=== PATIENT | female | born 1990 | race Caucasian/White ===

== ENCOUNTER 2020-08-16 15:39 | Emergency (ER) | payer MEDICAID, SELFPAY ==
[2020-08-16 16:17] VITALS: BP 110/41; PULSE 81; RESP 16; TEMP 36.2; O2SAT 97; BMI 30.2
--- NOTE | 2020-08-16 17:04 | XR_ITS ---
EXAMINATIONS: WRIST 4 VIEWS, RIGHT AND HAND 3 VIEWS, RIGHT CLINICAL INFORMATION: Pain. COMPARISON: None. TECHNIQUE: AP, lateral, oblique, scaphoid views of the right wrist are provided. PA, lateral, oblique views of the right hand were obtained. FINDINGS: There are no fractures or dislocations. There is mild soft tissue swelling about the dorsum of the hand. There is no displacement of the pronator fat pad. The proximal carpal row is intact. IMPRESSION: No fracture demonstrable. Mild soft tissue swelling to the dorsum of the hand.
--- NOTE | 2020-08-16 17:05 | US_ITS ---
EXAMINATION: US TRIPLEX SCANNING RIGHT UPPER EXTREMITY CLINICAL INFORMATION: Right arm pain and swelling. Question DVT. COMPARISON: None. TECHNIQUE: Color-flow triplex imaging with spectral analysis and compression Doppler were performed on the right upper extremity. FINDINGS: Respiratory variation, normal compression and augmented flow are noted throughout the right upper extremity. The visualized basilic vein, cephalic vein, axillary vein and subclavian vein segments show no evidence of deep venous thrombosis. IMPRESSION: Normal triplex scan without evidence of deep venous thrombosis involving the right upper extremity.
--- NOTE | 2020-08-16 17:07 | ED.EXTPRO ---
HPI - Extremity Problem General Chief complaint: Extremity Injury, Upper Stated complaint: hand pain and swelling Time Seen by Provider: 08/16/20 16:55 Source: patient Mode of arrival: ambulatory Limitations: no limitations History of Present Illness HPI Narrative: 29yoF presenting to the ED c c/o of right hand/wrist/forearm/arm pain swelling x a few days worse today. Denies recent travel, denies history of hypercoagulation disorder, history of cancer, IV drug use oral contraceptive Related Data Allergies Allergy/AdvReac Type Severity Reaction Status Date / Time clindamycin [CLINDAMYCIN] Allergy Unknown ANAPHYLAXIS Unverified 07/15/20 19:20 Review of Systems Review of Systems: Constitutional : No Weight loss, No Fever, No Chills, No Night Sweats, No Fatigue, No Malaise Cardiovascular : No Chest Pain, No SOB, No Dyspnea on Exertion, No Orthopnea, No Edema, No Palpitations Respiratory : No Cough, No Sputum, No Wheezing, No Smoke Exposure, No Dyspnea Musculoskeletal :No Myalgias Skin : No Skin Lesions, No rash Neuro : No Weakness, No Numbness, No Paresthesias, No Loss of Consciousness, No Dizziness, No Headache Psych : No Anxiety/Panic, No Depression, No SI/HI/AH/VH, No Social Issues, Heme/Lymph: No Bruising, No Bleeding,No Lymphadenopathy Yes all other systems are reviewed and are negative [facility] Past Medical History Attestation statement: The following information was validated with the patient. Surgical History Hx of cholecystectomy Social History Social History Smoking Status: Never smoker Use of substances other than those prescribed or required for medical reasons: No Advance Directives: No Advance Directives Information Provided: Yes Physical Exam Vital Signs: Vital Signs: Vital Signs Temp Pulse Resp BP Pulse Ox 08/16/20 16:17 97.1 F 81 16 110/41 L 97 Body Mass Index 30.2 vital signs have been reviewed as normal and appeared to be correct. Blood pressure normal. Heart rate normal. Respiration rate normal. Temperature normal. Oxygen saturation normal. Appearance: Alert. Oriented X3. No acute distress. Neck: Normal inspection. Neck supple. FROM. CVS: Normal heart rate and rhythm. Heart sound normal. Pulses normal throughout. Respiratory: No respiratory distress. Painless inspiration. Back:Full range of motion noted. Skin: Skin warm and dry. Normal skin color. Normal skin turgor. No rashes/lesions/lacerations noted. Extremities: To r wrist/forearm there is mild sts and pt ttp. Pt has FROM. no obvious deformity. No erythema/fluctuance/ induration / streaking noted. No edema noted to all extremities. All other Extremities exhibit normal range of motion and nontender. Neuro: Oriented X 3. No motor deficit. No sensory deficit. Reflexes normal. Course Course Course Narrative: 29yoF presenting to the ED c c/o of right hand/wrist/forearm/arm pain swelling x a few days worse today. - Plan: Xray of right wrist/hand and US to Evaluate for possible DVT versus fracture or any other acute processes and re-evaluate. Reevaluation(s) Reevaluation #1: X-ray of right hand /wrist reveals mild soft tissue swelling to dorsum of hand otherwise no other acute processes. Awaiting ultrasound of hand/arm at this time. Will sign out to oncoming IVONE at this time. MDM - Extremity (Nontraumatic) Imaging Data right hand/wrist xray: Attestation: I personally reviewed and interpreted this imaging study as follows: Radiologist's impression: FINDINGS: There are no fractures or dislocations. There is mild soft tissue swelling about the dorsum of the hand. There is no displacement of the pronator fat pad. The proximal carpal row is intact. IMPRESSION: No fracture demonstrable. Mild soft tissue swelling to the dorsum of the hand.
[2020-08-16 18:34] VITALS: BP 115/68; PULSE 83; RESP 16; TEMP 36.6; O2SAT 100
[2020-08-16] MEDS: Ibuprofen 600 MG TABLET PO (19:56)
== END 2020-08-16 20:00 | disposition home or self-care (01) ==
PROVIDERS: Emergency Provider Emergency Medicine; PCP Internal Medicine
DX: M79.641 Pain in right hand (principal); M79.89 Other specified soft tissue disorders
CPT/HCPCS: 73110; 73130; 93971; 99284

== ENCOUNTER 2021-01-18 15:35 | Outpatient (REF) | payer MEDICAID, SELFPAY | END 2021-01-18 15:36 | disposition home or self-care (01) | LOC: HO.LAB 15:35 | PROVIDERS: Visit Provider Internal Medicine | DX: Z20.822 Contact with and (suspected) exposure to COVID-19 (principal) | CPT/HCPCS: 36415; C9803; U0003; U0005 ==

== ENCOUNTER 2021-02-02 15:44 | Outpatient (REF) | payer MEDICAID, SELFPAY ==
--- NOTE | ~2021-02-02 | US_ITS ---
EXAMINATION:US pelvic complete, US transvaginal CLINICAL INFORMATION: Reason for Exam IRREGULAR MENSES COMPARISON: No priors available. LMP: 12/10/2020 FINDINGS: UTERUS: The uterus is anteverted. Size: 8.4 x 4.8 x 5.9 cm. Uterine mass: There is no uterine mass. Cervix: There are nabothian cysts otherwise Grossly unremarkable. Endometrium: No ultrasound evidence of endometrial lesion. endometrial is hypertrophic thickened measures 1.7 cm ADNEXA: Normal Right ovary: Normal in size. Left ovary: Normal in size. Doppler exam: Normal Doppler flow identified in both ovaries. FREE FLUID: Trace amount of free fluid. OTHER FINDINGS: None US/US transvaginal IMPRESSION: No ultrasound evidence of uterine mass or suspicious lesion to explain patient's symptoms. Thickened hypertrophic endometrium 1.7 cm. In this patient age group this is likely physiologic.
--- NOTE | ~2021-02-02 | US_ITS ---
EXAMINATION:US pelvic complete, US transvaginal CLINICAL INFORMATION: Reason for Exam IRREGULAR MENSES COMPARISON: No priors available. LMP: 12/10/2020 FINDINGS: UTERUS: The uterus is anteverted. Size: 8.4 x 4.8 x 5.9 cm. Uterine mass: There is no uterine mass. Cervix: There are nabothian cysts otherwise Grossly unremarkable. Endometrium: No ultrasound evidence of endometrial lesion. endometrial is hypertrophic thickened measures 1.7 cm ADNEXA: Normal Right ovary: Normal in size. Left ovary: Normal in size. Doppler exam: Normal Doppler flow identified in both ovaries. FREE FLUID: Trace amount of free fluid. OTHER FINDINGS: None US/US pelvic complete IMPRESSION: No ultrasound evidence of uterine mass or suspicious lesion to explain patient's symptoms. Thickened hypertrophic endometrium 1.7 cm. In this patient age group this is likely physiologic.
== END 2021-02-02 15:45 | disposition home or self-care (01) ==
LOC: HO.US 15:44
PROVIDERS: Visit Provider Internal Medicine
DX: N92.6 Irregular menstruation, unspecified (principal)
CPT/HCPCS: 76830; 76856

== ENCOUNTER 2021-03-07 17:17 | Emergency (ER) | payer MEDICAID, SELFPAY ==
[2021-03-07 17:25] VITALS: BP 107/36; PULSE 71; RESP 18; TEMP 36.8; O2SAT 98; BMI 33.5
--- NOTE | 2021-03-07 18:30 | ED.EAR ---
HPI - Ear Problem General Chief complaint: Ear Problems Stated complaint: ear pain Time Seen by Provider: 03/07/21 18:05 Source: patient Mode of arrival: ambulatory History of Present Illness HPI Narrative: 30-year-old female with no significant past medical history presenting to the ED complaining of left ear pain x today, and right ear pain since ED arrival. Reports associated nasal congestion. Denies hearing loss, drainage from ear, sore throat, headache, fever, chills MD Complaint: ear pain Related Data Previous Rx's Medication Instructions Recorded naproxen 500 mg PO BID PRN #20 tab 08/16/20 Allergies Allergy/AdvReac Type Severity Reaction Status Date / Time clindamycin [CLINDAMYCIN] Allergy Unknown ANAPHYLAXIS Verified 03/07/21 17:25 Review of Systems Review of Systems: Constitutional: No Fever, No Chills ENT/Mouth: + Ear Pain, + Nasal Congestion, No Sinus Pain, No sore throat, No Rhinorrhea Cardiovascular: No Chest Pain, No SOB Respiratory: No Cough Gastrointestinal: No Nausea, No Vomiting, No Abdominal pain Musculoskeletal: No joint pain, No Myalgias Skin: No Skin Lesions, No rash Yes all other systems are reviewed and are negative [facility] Past Medical History Attestation statement: The following information was validated with the patient. Surgical History Hx of cholecystectomy Social History Social History Smoking Status: Never smoker Advance Directives: No Advance Directives Information Provided: Yes Physical Exam Vital Signs: Vital Signs: Last Vital Signs Temp 98.2 F 03/07/21 17:25 Pulse 71 03/07/21 17:25 Resp 18 03/07/21 17:25 BP 107/36 L 03/07/21 17:25 Pulse Ox 98 03/07/21 17:25 Body Mass Index 33.5 Const: General: cooperative, healthy appearing and comfortable Orientation/consciousness: patient oriented x3 Limitations: no limitations HENMT: Head: Yes normal to inspection Ears: hearing grossly normal bilaterally, external ears normal, TM's normal bilaterally, TM normal on the right, TM normal on the left and mastoids normal General nose exam: Normal external nose present and Normal nares present Face and sinus: Yes normal facial exam Mouth: Normal oral and palatal mucosa present Throat: Yes posterior oropharynx normal, Yes tonsils normal, Yes uvula midline, No peritonsillar mass and No posterior oropharynx abnormal Eyes: General: appearance normal, both eyes and all related structures EOM: EOMs intact bilaterally Neck: Neck: Yes normal visual inspection, Yes no lymphadenopathy and Yes trachea midline Resp: Effort & Inspection: normal respiratory effort Cardio: Rate: regular rate GI: Inspection: Yes normal to inspection Skin: Rashes: no rashes Wounds: no wounds Neuro: General: patient oriented x3 Gait exam (Neuro): Normal gait present Extrem: General: Yes normal to inspection MDM - Ear MDM Narrative Medical decision making narrative: On exam VSS, NAD/well-appearing, TMs normal bilaterally, mastoid wnl. No evidence of active otitis media or externa Discharge Plan Discharge Clinical Impression: Acute ear pain Qualifiers: Laterality: left Qualified Code(s): H92.02 - Otalgia, left ear Patient Disposition: Home, Self-Care Instructions: Earache (ED) Additional Instructions: Your earache does not look infected at this time, it is likely viral etiology, this does not require antibiotics Take Tylenol and Motrin around the clock If her symptoms persist or worsen in the next 2-3 days be re-evaluated Prescriptions: No Action naproxen 500 mg tablet 500 mg PO BID PRN (Reason: pain) Qty: 20 RF: 0 Referrals: Kath Venegas MD [Primary Care Provider] - 2 days Interventions: ED Discharge Assessment Last Done: 03/07/21 18:39 Discharge Date/Time: 03/07/21 18:40
== END 2021-03-07 18:40 | disposition home or self-care (01) ==
PROVIDERS: Emergency Provider Internal Medicine; PCP Internal Medicine
DX: H92.02 Otalgia, left ear (principal); Z79.899 Other long term (current) drug therapy
CPT/HCPCS: 99284

== ENCOUNTER 2021-04-08 15:54 | Emergency (ER) | payer MEDICAID, SELFPAY ==
[2021-04-08 16:40] VITALS: BP 111/60; PULSE 77; RESP 16; TEMP 36.7; O2SAT 99; BMI 33.0
[2021-04-08] MEDS: Lidocaine HCl 2 % MPF 5 ML VIAL SUBCUT (17:15)
--- NOTE | 2021-04-08 17:16 | PC.NURSE ---
PAT PHAM PERFORMED BEDSIDE US AND I&D
--- NOTE | 2021-04-08 17:34 | ED_ITS ---
HPI - Skin/Abscess/Foreign Bdy General Chief complaint: Skin/Abscess/Foreign Body Stated complaint: abscess Time Seen by Provider: 04/08/21 17:00 History of Present Illness HPI narrative: 30-year-old healthy female who presents to the ED with concern for rash and infection under her right breast. Patient states over the last 2 days she has noticed increased pain and swelling to this area. Has never had anything like this happen in the past. Denies fevers or chills. Denies other chest pain or shortness of breath. States she was trying Tylenol home with minimal relief. Related Data Previous Rx's Medication Instructions Recorded naproxen 500 mg PO BID PRN #20 tab 08/16/20 cephalexin 500 mg PO QID #40 cap 04/08/21 Allergies Allergy/AdvReac Type Severity Reaction Status Date / Time clindamycin [CLINDAMYCIN] Allergy Unknown ANAPHYLAXIS Verified 03/07/21 17:25 Review of Systems Review of Systems: Constitutional : No Weight loss, No Fever, No Chills, No Night Sweats, No Fatigue, No Malaise ENT/Mouth : No Hearing loss, No Ear Pain, No Nasal Congestion, No Sinus Pain, No Hoarseness, No sore throat, No Rhinorrhea, No Swallowing Difficulty Eyes: No Eye Pain, No Swelling, No Redness, No Foreign Body, No Discharge, No Vision Changes Cardiovascular : No Chest Pain, No SOB, No Dyspnea on Exertion, No Orthopnea, No Edema, No Palpitations Respiratory : No Cough, No Sputum, No Wheezing, No Smoke Exposure, No Dyspnea Gastrointestinal : No Nausea, No Vomiting, No Diarrhea, No Constipation, No abdominal Pain, No Hematochezia, No Melena Genitourinary : no irregular bleeding, No Dysuria, No Urinary Frequency, No Hematuria, No Urinary Incontinence, No Urgency, No Flank Pain, No Urinary Flow Changes, No Hesitancy Musculoskeletal : No joint pain, No Myalgias, No Joint Swelling Skin : No Skin Lesions, + rash, +swelling under right breast Neuro : No Weakness, No Numbness, No Paresthesias, No Loss of Consciousness, No Dizziness, No Headache Psych : No Anxiety/Panic, No Depression, No SI/HI/AH/VH, No Social Issues, Heme/Lymph: No Bruising, No Bleeding,No Lymphadenopathy Endocrine : No Polyuria, No Polydipsia, No Temperature Intolerance PMFSH Past Medical History Attestation statement: The following information was validated with the patient. Source: old records reviewed and nursing notes reviewed Surgical History Hx of cholecystectomy Social History Social History Advance Directives: No Advance Directives Information Provided: Yes Patient : No Physical Exam Vital Signs: Vital Signs: Last Vital Signs Temp 98.0 F 04/08/21 16:40 Pulse 77 04/08/21 16:40 Resp 16 04/08/21 16:40 BP 111/60 04/08/21 16:40 Pulse Ox 99 04/08/21 16:40 Body Mass Index 33.0 vital signs have been reviewed as normal and appeared to be correct. Blood pressure normal. Heart rate normal. Respiration rate normal. Temperature no rmal. Oxygen saturation normal. Appearance: Alert. Oriented X3. No acute distress. Head: Normal external exam. Normocephalic. Atraumatic. No Ordoñez signs noted. No raccoon eyes noted Eyes: Conjunctiva and sclera normal. ENT: EAC normal. Moist mucous membranes. No drooling noted. No muffled voice noted. Neck: Normal inspection. Neck supple. FROM. No meningeal signs. CVS: Pulses normal throughout. Respiratory: No respiratory distress. Painless inspiration. No accessory muscle usage noted Abdomen: No visible injury noted. Back: Full range of motion noted. Skin: Skin warm and dry. Normal skin color. Normal skin turgor. Patient with area of erythema under the right breast with tenderness. Small central portion of this with mild fluctuance which may represent early abscess. Extremities: No lower extremity edema. Extremities exhibit normal range of motion. Neuro: Oriented X 3. No motor deficit. No sensory deficit. Procedures Abscess I/D Site: other (under right breast) Side (if applicable): right Local Anesthetic: lidocaine 1% Amount of anesthesia used (mL): 2 Technique: incised with blade Amount of fluid expressed (mL): 3 Sent for culture/gram staining?: No Irrigation: Yes Packing used?: none MDM - Skin/Abscess/Foreign Bdy MDM Narrative Medical decision making narrative: Patient's vital signs are stable and she is afebrile. Patient presenting to the emergency department with rash/swelling under right breast. On exam patient has what appears to be a cellulitis with small early abscess. Bedside ultrasound performed with small fluid collection. I and D performed with moderate amount of purulent bloody drainage from this region. Will prescribe Keflex to help with acute cellulitis and discharged with close outpatient follow-up. Patient comfortable with this plan. Will continue to monitor pending discharge. Discharge Plan Discharge Clinical Impression: Cellulitis Qualifiers: Site of cellulitis: other site Qualified Code(s): L03.818 - Cellulitis of other sites Abscess of skin or subcutaneous tissue Qualifiers: Site of cutaneous abscess: unspecified site Qualified Code(s): L02.91 - Cutaneous abscess, unspecified Patient Disposition: Home, Self-Care Instructions: Cellulitis (ED), Abscess (ED), Abscess Incision and Drainage (DC) Additional Instructions: You were seen today in the emergency department for an abscess to the right breast. There was a small fluid collection that was drained to help heal infection. You will be started on antibiotics and should continue this for 10 days. Use Motrin and Tylenol for pain control. Keep wound clean and dry. This will drain for a few days before closing. Return to the ED if you develop worsening pain worsening swelling continued purulence drainage from the wound or fever. Prescriptions: New cephalexin 500 mg capsule 500 mg PO QID Qty: 40 RF: 0 No Action naproxen 500 mg tablet 500 mg PO BID PRN (Reason: pain) Qty: 20 RF: 0 Referrals: Kath Venegas MD [Primary Care Provider] - 5 days (if needed) Print Language: Armenian
[2021-04-08] MEDS: cephALEXin 500 MG CAPSULE PO (18:10)
== END 2021-04-08 18:21 | disposition home or self-care (01) ==
PROVIDERS: Emergency Provider Internal Medicine; PCP Internal Medicine
DX: L03.818 Cellulitis of other sites (principal); L02.213 Cutaneous abscess of chest wall
CPT/HCPCS: 10060; 99283; 99284

== ENCOUNTER 2021-04-10 17:02 | Emergency (ER) | payer MEDICAID, SELFPAY ==
[2021-04-10 17:12] VITALS: BP 127/56; PULSE 88; RESP 16; TEMP 37; O2SAT 98; BMI 33.0
[2021-04-10 17:37] LABS: Strep A Nucleic Acid Negative (Negative)
--- NOTE | 2021-04-10 23:53 | ED.GENADULT ---
HPI - General Adult General Chief complaint: General Medical Stated complaint: multiple complaints Time Seen by Provider: 04/10/21 23:53 Source: patient Mode of arrival: ambulatory Limitations: no limitations History of Present Illness HPI narrative: Patient been complaining of body aches sore throat running nose all day today no other family member sick patient has not received COVID-19 vaccine occasional dry cough denies any shortness of breath Related Data Previous Rx's Medication Instructions Recorded naproxen 500 mg PO BID PRN #20 tab 08/16/20 cephalexin 500 mg PO QID #40 cap 04/08/21 azithromycin [Zithromax] 250 mg PO DAILY 4 Days #4 tab 04/11/21 Allergies Allergy/AdvReac Type Severity Reaction Status Date / Time clindamycin [CLINDAMYCIN] Allergy Unknown ANAPHYLAXIS Verified 03/07/21 17:25 Review of Systems Review of Systems: Yes all other systems are reviewed and are negative [facility] Past Medical History Surgical History Hx of cholecystectomy Social History Social History Advance Directives: No Patient : No Physical Exam Vital Signs: Vital Signs: Last Vital Signs Temp 98.6 F 04/10/21 17:12 Pulse 88 04/10/21 17:12 Resp 16 04/10/21 17:12 BP 127/56 L 04/10/21 17:12 Pulse Ox 98 04/10/21 17:12 Body Mass Index 33.0 Appearance: Alert. Oriented X3. No acute distress. Eyes: PERRLA, No Nystagmus ENT: Pharynx slight erythema. Oral Mucosa moist Neck: Normal inspection. Neck supple. CVS: Normal heart rate and rhythm. Pulses normal. Respiratory: No respiratory distress. Equal air entry bilateral, no wheezing/rales/rhonchi Abdomen: Soft and nontender. Bowel sounds are present, Skin: Skin warm and dry. Normal skin color. Normal skin turgor. Extremities: No lower extremity edema. No calf tenderness Neuro: Oriented X 3. No motor deficit. No sensory deficit. Medical Decision Making Lab Data Lab results reviewed: Yes I reviewed the patient's lab results. Labs: Lab Results 04/10/21 04/11/21 Range/Units 17:16 00:25 COVID-19 (TOÑA) Negative (Negative) COVID-19 Clin Com See Note S. pyogenes GrpA YIN Negative (Negative) Discharge Plan Discharge Clinical Impression: Acute pharyngitis Qualifiers: Pharyngitis/tonsillitis etiology: unspecified etiology Qualified Code(s): J02.9 - Acute pharyngitis, unspecified Patient Disposition: Home, Self-Care Instructions: Pharyngitis (ED) Additional Instructions: Drink plenty of fluids Take antibiotic as prescribed The strep test is negative and COVID is negative Prescriptions: New azithromycin [Zithromax] 250 mg tablet 250 mg PO DAILY 4 Days Qty: 4 RF: 0 No Action naproxen 500 mg tablet 500 mg PO BID PRN (Reason: pain) Qty: 20 RF: 0 cephalexin 500 mg capsule 500 mg PO QID Qty: 40 RF: 0
[2021-04-11 00:45] LABS: COVID-19 Test Negative (Negative)
[2021-04-11] MEDS: Azithromycin 500 MG TABLET PO (01:13)
== END 2021-04-11 01:33 | disposition home or self-care (01) ==
PROVIDERS: Emergency Provider Internal Medicine; PCP Internal Medicine
DX: J02.9 Acute pharyngitis, unspecified (principal); Z20.822 Contact with and (suspected) exposure to COVID-19
CPT/HCPCS: 36415; 87635; 87651; 99283

== ENCOUNTER 2021-06-18 15:25 | Emergency (ER) | payer MEDICAID, SELFPAY ==
[2021-06-18 15:32] VITALS: BP 104/44; PULSE 88; RESP 16; TEMP 37; O2SAT 96; BMI 34.7
[2021-06-18 16:29] LABS: COVID-19 Test Negative (Negative)
--- NOTE | 2021-06-18 17:49 | ED.HA ---
HPI - Headache General Chief Complaint: Headache Stated Complaint: covid symptoms Time Seen by Provider: 06/18/21 17:49 History of Present Illness HPI Narrative: Patient complains of a mild headache similar to previous, she is worried she might be getting sick as her child has had a mild cough and runny nose and she wants to be checked for COVID, it was gradual in onset, there is no trauma there is no fever, she has no cough no difficulty breathing no vomiting Related Data Previous Rx's Medication Instructions Recorded naproxen 500 mg tablet 500 mg PO BID PRN #20 tab 08/16/20 cephalexin 500 mg capsule 500 mg PO QID #40 cap 04/08/21 azithromycin 250 mg tablet 250 mg PO DAILY 4 Days #4 tab 04/11/21 (Zithromax) hyoscyamine sulfate 0.125 mg tablet 0.125 mg PO QID PRN #10 tab 06/27/21 Allergies Allergy/AdvReac Type Severity Reaction Status Date / Time Iodinated Contrast Media Allergy Intermediate Facial Verified 06/27/21 14:39 Swelling clindamycin [CLINDAMYCIN] Allergy Unknown ANAPHYLAXIS Verified 03/07/21 17:25 Review of Systems Review of Systems: Positive for headache Negatives are no fever no chills no dizziness no weakness no fainting no feeling faint no loss of consciousness no vision change no numbness weakness or tingling no confusion no nausea or vomiting no neck pain no chest pain no shortness of breath no cough no sore throat no abdominal pain no vomiting no nausea no diarrhea Yes all other systems are reviewed and are negative PMFSH Past Medical History Source: nursing notes reviewed Medical History Epilepsy Surgical History Hx of cholecystectomy Social History Social History Advance Directives: Yes Advance Directives Information Provided: Yes Advance Directives on File: No Patient : No Physical Exam Vital Signs: Vital Signs: Last Vital Signs Temp 98.6 F 06/18/21 15:32 Pulse 88 06/18/21 15:32 Resp 16 06/18/21 15:32 BP 104/44 L 06/18/21 15:32 Pulse Ox 96 08/21/21 15:32 Body Mass Index 34.7 General appearance is no acute distress The pupils equal round reactive to light Extraocular motions are intact The ears are clear with no redness to tympanic membrane no narrowing to canals Head is normocephalic atraumatic Neck is supple Respiratory no distress Extremities full range of motion x4 Abdomen soft nontender Neuro no focal deficits, cranial nerves 2-12 intact as tested, gait and balance are normal, speech both expression and understanding is normal, no facial asymmetry, motor 5/5 x4 Course Course Course Narrative: Well-appearing patient with mild gradual onset headache otherwise asymptomatic head negative COVID test and is discharged MDM - Headache Lab Data Labs: Lab Results 06/18/21 Range/Units 15:53 COVID-19 (TOÑA) Negative (Negative) COVID-19 Clin Com See Note Discharge Plan Discharge Clinical Impression: Headache Patient Disposition: Home, Self-Care Additional Instructions: COVID testing was negative Vital signs were normal Return any time any worse condition or concerns Use Tylenol or Motrin as needed Prescriptions: No Action naproxen 500 mg tablet 500 mg PO BID PRN (Reason: pain) Qty: 20 RF: 0 cephalexin 500 mg capsule 500 mg PO QID Qty: 40 RF: 0 azithromycin [Zithromax] 250 mg tablet 250 mg PO DAILY 4 Days Qty: 4 RF: 0 hyoscyamine sulfate 0.125 mg tablet 0.125 mg PO QID PRN (Reason: dyspepsia) Qty: 10 RF: 0 Stand Alone Forms: Work/School Release Interventions: ED Discharge Assessment Last Done: 06/18/21 18:21 Discharge Date/Time: 06/18/21 18:21
== END 2021-06-18 18:21 | disposition home or self-care (01) ==
PROVIDERS: Emergency Provider Internal Medicine; PCP Internal Medicine
DX: R51.9 Headache, unspecified (principal); Z20.822 Contact with and (suspected) exposure to COVID-19
CPT/HCPCS: 36415; 87635; 99283

== ENCOUNTER 2021-06-25 10:12 | Outpatient (REF) | payer MEDICAID, SELFPAY ==
[2021-06-25 11:07] LABS: Glucose Random 99 mg/dL (60-115)
== END 2021-06-25 10:13 | disposition home or self-care (01) ==
LOC: HO.LAB 10:12
PROVIDERS: Absent Provider Internal Medicine; PCP Internal Medicine; Visit Provider Internal Medicine
DX: E16.2 Hypoglycemia, unspecified (principal)
CPT/HCPCS: 36415; 82947

== ENCOUNTER 2021-06-27 10:01 | Emergency (ER) | payer MEDICAID, SELFPAY ==
--- NOTE | ~2021-06-27 | CT_ITS ---
EXAMINATION: CT ABDOMEN AND PELVIS WITH CONTRAST CLINICAL INFORMATION: Epigastric pain. History of pancreatitis. COMPARISON: Ultrasound abdomen 07/03/2019 TECHNIQUE: Multidetector volumetric images were obtained from the superior aspect of the liver through the pubic symphysis following administration 85 mL of Omnipaque 350 intravenous contrast. Sagittal and coronal reformatted images were obtained on the technologist's workstation. Oral contrast: No This CT examination was performed using dose optimization techniques as appropriate, variously including the following: *Automated exposure control *Adjustment of mA and/or kV according to patient size (this includes techniques or standardized protocols for targeted exams where dose is matched to indication/reason for exam; i.e. extremities or head) *Use of iterative reconstruction technique DLP: 836 mGy-cm FINDINGS: LUNG BASES: The visualized lung bases are unremarkable. LIVER, GALLBLADDER, AND BILIARY TREE: Diffuse low-attenuation liver suggesting hepatic steatosis. No focal lesions. No intrahepatic biliary duct dilatation. Gallbladder is surgically absent. No dilatation of the CBD is seen. PANCREAS: Homogeneous attenuation. No acute inflammatory changes are seen. No mass lesion or ductal dilatation is seen. SPLEEN: Unremarkable. ADRENAL GLANDS: Unremarkable. KIDNEYS AND URETERS: The kidneys are normal in size, shape, and attenuation. No hydronephrosis, hydroureter, or calculi seen. No perinephric stranding. BLADDER: Unremarkable. GASTROINTESTINAL TRACT: Stomach has luminal contents limiting evaluation.. No dilated small or large bowel loops. Nonobstructive bowel gas pattern. No acute inflammatory changes evident with the small or large bowel. Appendix appears unremarkable. No free fluid or free air. ABDOMINAL WALL: No significant hernia is appreciated. LYMPH NODES: No enlarged lymph nodes are seen in the abdomen or pelvis. VASCULAR: Normal caliber aorta. PELVIC VISCERA: Anteverted uterus. There is right adnexal 3.3 cm cm hypodense focus, Hounsfield measurements greater than simple fluid. Left adnexa is unremarkable. OSSEOUS STRUCTURES: No acute or suspicious osseous abnormality. CT/CT abdomen pelvis w con IMPRESSION: 1. Hepatic steatosis. 2. Status postcholecystectomy. No dilated biliary ducts seen. 3. No acute process is identified. No acute inflammatory changes are evident in the peripancreatic region. 4. Right adnexal 3.3 cm hypodense focus, with measurements greater than simple fluid. This could represent a complex ovarian cystic lesion. Consider follow-up ultrasound for further evaluation.
[2021-06-27 10:07] VITALS: BP 114/56; PULSE 89; RESP 19; TEMP 531.6; TEMP 989; O2SAT 98; BMI 34.2
--- NOTE | 2021-06-27 10:13 | ECG_ITS ---
Test Reason : ABDOMINAL PAIN Blood Pressure : / mmHG Vent. Rate : 077 BPM Atrial Rate : 077 BPM P-R Int : 130 ms QRS Dur : 084 ms QT Int : 362 ms P-R-T Axes : 056 069 041 degrees QTc Int : 409 ms Normal sinus rhythm Normal ECG When compared with ECG of 27-MAR-2020 23:11, Vent. rate has decreased BY 40 BPM Referred By: Lupe Posadas Electronically Signed By:EHSAN AVILES
--- NOTE | 2021-06-27 10:13 | ED.ABDPAIN ---
HPI - Abdominal Pain General Chief Complaint: Abdominal Pain Stated Complaint: ABD PAIN Time Seen by Provider: 06/27/21 10:04 Source: patient Mode of arrival: ambulatory Limitations: no limitations History of Present Illness HPI narrative: Patient comes emergency room complaining of abdominal distention starting this morning. Patient denies vomiting or diarrhea, patient complaining of diffuse abdominal cramping. Patient states it started after eating breakfast Patient has history of cholecystectomy. Patient denies fever chills, no UTI symptoms Related Data Previous Rx's Medication Instructions Recorded naproxen 500 mg tablet 500 mg PO BID PRN #20 tab 08/16/20 cephalexin 500 mg capsule 500 mg PO QID #40 cap 04/08/21 azithromycin 250 mg tablet 250 mg PO DAILY 4 Days #4 tab 04/11/21 (Zithromax) hyoscyamine sulfate 0.125 mg tablet 0.125 mg PO QID PRN #10 tab 06/27/21 Allergies Allergy/AdvReac Type Severity Reaction Status Date / Time Iodinated Contrast Media Allergy Intermediate Facial Verified 06/27/21 14:39 Swelling clindamycin [CLINDAMYCIN] Allergy Unknown ANAPHYLAXIS Verified 03/07/21 17:25 Review of Systems Review of Systems Constitutional : No Weight loss, No Fever, No Chills, No Night Sweats, No Fatigue, No Malaise ENT/Mouth : No Hearing loss, No Ear Pain, No Nasal Congestion, No Sinus Pain, No Hoarseness, No sore throat, No Rhinorrhea, No Swallowing Difficulty Eyes: No Eye Pain, No Swelling, No Redness, No Foreign Body, No Discharge, No Vision Changes Cardiovascular : No Chest Pain, No SOB, No Dyspnea on Exertion, No Orthopnea, No Edema, No Palpitations Respiratory : No Cough, No Sputum, No Wheezing, No Smoke Exposure, No Dyspnea Gastrointestinal : No Nausea, No Vomiting, No Diarrhea, complaining of abdominal distension and diffuse cramping Genitourinary : no irregular bleeding, No Dysuria, No Urinary Frequency, No Hematuria, No Urinary Incontinence, No Urgency, No Flank Pain, No Urinary Flow Changes, No Hesitancy Musculoskeletal : No joint pain, No Myalgias, No Joint Swelling Skin : No Skin Lesions, No rash Neuro : No Weakness, No Numbness, No Paresthesias, No Loss of Consciousness, No Dizziness, No Headache Psych : No Anxiety/Panic, No Depression, No SI/HI/AH/VH, No Social Issues, Heme/Lymph: No Bruising, No Bleeding,No Lymphadenopathy Endocrine : No Polyuria, No Polydipsia, No Temperature Intolerance Physical Exam Vital Signs: Vital Signs: Last Vital Signs Temp 98.1 F 06/27/21 11:59 Pulse 73 06/27/21 15:11 Resp 18 06/27/21 15:11 BP 110/64 06/27/21 15:11 Pulse Ox 98 06/27/21 15:11 Body Mass Index 34.2 Const: Other: Appearance: Alert. Oriented X3. No acute distress. Well-appearing Eyes: Pupils equal, round and reactive to light. ENT: Pharynx normal. Neck: Normal inspection. Neck supple. No lymph nodes noted. No crepitus CVS: Normal heart rate and rhythm. Pulses normal. Normal S1 and S2 Respiratory: No respiratory distress. Breath sounds normal. No Wheezing. No rales Abdomen: Soft and nontender. No rigidity. Mild distention. Skin: Skin warm and dry. Normal skin color. Normal skin turgor. Extremities: No lower extremity edema. No lower extremity edema. No Lacerations. No Rash Neuro: Oriented X 3. No motor deficit. No sensory deficit. Moving all extermities. No slurred speech. Course Course Course Narrative: Patient states that she feels better. However, patient has history of pancreatitis, patient's lipase is slightly bumped. Due to her history of pancreatitis, we will go ahead and do a CT scan. After CT scan with contrast, patient reported shortness of breath, difficulty breathing. On physical exam patient had mild swelling on the left eyelid on the left side of the cheek, no lip swelling, no angioedema, no wheezing, oxygen saturation 100%. Patient was given 1 dose of Solu-Medrol, Benadryl, and Pepcid. No rash. Iodine contrast media allergy added to patient's chart After the IV medications for the logic reaction, patient is feeling better, no longer having facial swelling, oxygen saturation 99% on room air, no angioedema. Patient no longer having abdominal pain. Pancreatitis is unlikely. Patient instructed to ingest a liquid diet for the next couple of days. MDM - Abdominal Pain Lab Data Result diagrams: 06/27/21 10:23 06/27/21 10:23 Labs: Lab Results 08/06/27/21 06/27/21 Range/Units 10:23 10:23 10:23 WBC 7.9 (4.8-10.8) X10*3/uL RBC 4.23 (4.20-5.50) X10*6/uL Hgb 13.6 (12.0-16.0) g/dl Hct 40.4 (37-47) % MCV 95.5 (80-98) fL MCH 32.2 (27.0-33.0) pg MCHC 33.7 (31.0-35.0) g/dl RDW 13.4 (11.0-16.0) % Plt Count 273 (160-400) X10*3/uL MPV 11.0 (9.4-12.3) fL Immature Gran % (Auto) 0.4 (0.0-0.4) % Neut % (Auto) 53.5 (45-73) % Lymph % (Auto) 37.3 (20-40) % [place] % (Auto) 8.0 (2-11) % Eos % (Auto) 0.4 (0-4) % Baso % (Auto) 0.4 (0-2) % Lymph # (Auto) 2.9 (1.2-4.9) X10*3/uL [place] # (Auto) 0.6 (0.1-1.2) X10*3/uL Eos # (Auto) 0.0 (0.0-0.4) X10*3/uL Baso # (Auto) 0.0 (0.0-0.2) X10*3/uL Abs Immat Gran (auto) 0.03 (0.00-0.03) X10*3/uL Absolute Neuts (auto) 4.2 (2.0-8.3) X10*3/uL Absolute Nucleated RBC 0.000 (0.0-0.012) X10*3/uL Nucleated RBC % (auto) 0.0 (0.0-0.2) /100WBC Sodium 139 (135-145) mmol/L Potassium 4.3 (3.3-5.1) mmol/L Chloride 103 (96-108) mmol/L Carbon Dioxide 26 (22-29) mmol/L Anion Gap 14 (12-20) BUN 13 (9-16) mg/dL Creatinine 0.65 (0.5-1.4) mg/dL Estim Creat Clear Calc 119.0 Estimated GFR > 60 Random Glucose 95 (60-115) mg/dL Calcium 9.5 (8.4-10.2) mg/dL Total Bilirubin 0.7 (0.0-1.0) mg/dL Direct Bilirubin 0.3 (0.0-0.5) mg/dL AST 59 H (5-31) U/L ALT 58 H (0-31) U/L Alkaline Phosphatase 65 (39-117) U/L Total Protein 8.5 H (6.5-8.0) g/dL Albumin 4.6 (3.5-5.0) g/dL Lipase 98 H (8-78) U/L Urine Color YELLOW Urine Appearance CLEAR Urine pH 6.0 (5.0-8.0) Ur Specific Merrill >= 1.030 H (1.005-1.025) Urine Protein NEG (NEG-TRACE) MG/DL Urine Glucose (UA) NEG (NEG) MG/DL Urine Ketones NEG (NEG) MG/DL Urine Blood 1+ H (NEG) Urine Nitrite NEG (NEG) Ur Leukocyte Esterase NEG (NEG) Urine RBC 1-4 (0) /HPF Urine WBC 0-2 (0-4) /HPF Ur Squamous Epith Cells 1+ /LPF Urine Bacteria NONE /LPF Urine Mucus 1+ /LPF Urine Test (NEGATIVE) 06/27/21 Range/Units 10:23 WBC (4.8-10.8) X10*3/uL RBC (4.20-5.50) X10*6/uL Hgb (12.0-16.0) g/dl Hct (37-47) % MCV (80-98) fL MCH (27.0-33.0) pg MCHC (31.0-35.0) g/dl RDW (11.0-16.0) % Plt Count (160-400) X10*3/uL MPV (9.4-12.3) fL Immature Gran % (Auto) (0.0-0.4) % Neut % (Auto) (45-73) % Lymph % (Auto) (20-40) % [place] % (Auto) (2-11) % Eos % (Auto) (0-4) % Baso % (Auto) (0-2) % Lymph # (Auto) (1.2-4.9) X10*3/uL [place] # (Auto) (0.1-1.2) X10*3/uL Eos # (Auto) (0.0-0.4) X10*3/uL Baso # (Auto) (0.0-0.2) X10*3/uL Abs Immat Gran (auto) (0.00-0.03) X10*3/uL Absolute Neuts (auto) (2.0-8.3) X10*3/uL Absolute Nucleated RBC (0.0-0.012) X10*3/uL Nucleated RBC % (auto) (0.0-0.2) /100WBC Sodium (135-145) mmol/L Potassium (3.3-5.1) mmol/L Chloride (96-108) mmol/L Carbon Dioxide (22-29) mmol/L Anion Gap (12-20) BUN (9-16) mg/dL Creatinine (0.5-1.4) mg/dL Estim Creat Clear Calc Estimated GFR Random Glucose (60-115) mg/dL Calcium (8.4-10.2) mg/dL Total Bilirubin (0.0-1.0) mg/dL Direct Bilirubin (0.0-0.5) mg/dL AST (5-31) U/L ALT (0-31) U/L Alkaline Phosphatase (39-117) U/L Total Protein (6.5-8.0) g/dL Albumin (3.5-5.0) g/dL Lipase (8-78) U/L Urine Color Urine Appearance Urine pH (5.0-8.0) Ur Specific [place] (1.005-1.025) Urine Protein (NEG-TRACE) MG/DL Urine Glucose (UA) (NEG) MG/DL Urine Ketones (NEG) MG/DL Urine Blood (NEG) Urine Nitrite (NEG) Ur Leukocyte Esterase (NEG) Urine RBC (0) /HPF Urine WBC (0-4) /HPF Ur Squamous Epith Cells /LPF Urine Bacteria /LPF Urine Mucus /LPF Urine Test NEGATIVE (NEGATIVE) Discharge Plan Discharge Clinical Impression: Abdominal pain Qualifiers: Abdominal location: unspecified location Qualified Code(s): R10.9 - Unspecified abdominal pain Allergic reaction to contrast dye Qualifiers: Encounter type: initial encounter Qualified Code(s): T50.8X5A - Adverse effect of diagnostic agents, initial encounter Patient Disposition: Home, Self-Care Instructions: Abdominal Pain (ED) Additional Instructions: Please follow-up with your primary care physician tomorrow. If you have any worsening or new symptoms, please return to the emergency room or call 911 Prescriptions: New hyoscyamine sulfate 0.125 mg tablet 0.125 mg PO QID PRN (Reason: dyspepsia) Qty: 10 RF: 0 No Action naproxen 500 mg tablet 500 mg PO BID PRN (Reason: pain) Qty: 20 RF: 0 cephalexin 500 mg capsule 500 mg PO QID Qty: 40 RF: 0 azithromycin [Zithromax] 250 mg tablet 250 mg PO DAILY 4 Days Qty: 4 RF: 0 PMFSH Past Medical History Medical History Epilepsy Surgical History Hx of cholecystectomy Social History Social History Advance Directives: Yes Advance Directives Information Provided: Yes Advance Directives on File: No Patient : No
[2021-06-27 10:29] LABS: MANUAL DIFF FLAG NO
[2021-06-27 10:31] LABS: Basophils Percent Auto 0.4 % (0-2); Eosinophils Percent Auto 0.4 % (0-4); Glucose Urine UA NEG (NEG); Hematocrit 40.4 % (37-47); Hemoglobin 13.6 g/dl (12.0-16.0); Imm Gran Abs Auto 0.03 X10*3/uL (0.00-0.03); Imm Gran Pct Auto 0.4 % (0.0-0.4); Leukocyte Esterase Urine NEG (NEG); Lymphocytes Absolute Auto 2.9 X10*3/uL (1.2-4.9); Lymphocytes Percent Auto 37.3 % (20-40); Mean Corpuscular HGB Conc 33.7 g/dl (31.0-35.0); Mean Corpuscular Hemoglobin 32.2 pg (27.0-33.0); Mean Corpuscular Volume 95.5 fL (80-98); Monocytes Absolute Auto 0.6 X10*3/uL (0.1-1.2); Neutrophils Absolute Auto 4.2 X10*3/uL (2.0-8.3); Neutrophils Percent Auto 53.5 % (45-73); Nitrite Urine NEG (NEG); Platelet Count 273 X10*3/uL (160-400); Red Blood Count 4.23 X10*6/uL (4.20-5.50); Red Cell Distribution Width 13.4 % (11.0-16.0); Specific Gravity - Urine >= 1.030 (1.005-1.025); Urine Blood 1+ (NEG); Urine Ketones NEG (NEG); Urine Protein NEG (NEG-TRACE); White Blood Count 7.9 X10*3/uL (4.8-10.8)
[2021-06-27 10:34] LABS: Appearance Urine CLEAR; Color Urine YELLOW; UPreg QC Valid YES; Urine Pregnancy NEGATIVE (NEGATIVE)
[2021-06-27] MEDS: Magnesium Hydrox/Alum Hydrox 30 ML ORAL.SUSP PO (10:36)
[2021-06-27] MEDS: Dicyclomine HCl 10 MG CAPSULE PO (10:36)
[2021-06-27] MEDS: Lidocaine HCl Viscous 2 % 15 ML SOLUTION MUCOUS MEM (10:36)
[2021-06-27] MEDS: Simethicone 80 MG TAB.CHEW 160 MG PO (10:36)
[2021-06-27 10:53] LABS: Alanine Aminotransferase 58 U/L (0-31); Albumin Level 4.6 g/dL (3.5-5.0); Alkaline Phosphatase 65 U/L (39-117); Anion Gap 14 (12-20); Aspartate Amino Transferase 59 U/L (5-31); Bilirubin Direct 0.3 mg/dL (0.0-0.5); Bilirubin Total 0.7 mg/dL (0.0-1.0); Blood Urea Nitrogen 13 mg/dL (9-16); Calcium 9.5 mg/dL (8.4-10.2); Carbon Dioxide 26 mmol/L (22-29); Chloride 103 mmol/L (96-108); Estimated Glomerular Filt Rate > 60; Glucose Random 95 mg/dL (60-115); Lipase 98 U/L (8-78); Mucus Urine 1+ /LPF; Potassium 4.3 mmol/L (3.3-5.1); Sodium 139 mmol/L (135-145); Squamous Epithelial Cell Urine 1+ /LPF; Total Protein 8.5 g/dL (6.5-8.0); WBC Urine 0-2 /HPF (0-4)
[2021-06-27 11:59] VITALS: BP 113/56; PULSE 68; TEMP 36.7; O2SAT 99
[2021-06-27] MEDS: iohexoL 350 MG/ML 100 ML INFUS..BTL 85 ML IV (14:39)
[2021-06-27] MEDS: methylPREDNISolone Sod Succ 125 MG/2 ML VIAL IVPUSH (14:40)
[2021-06-27] MEDS: Famotidine/PF 20 MG/2 ML VIAL IVPUSH (14:41)
[2021-06-27] MEDS: diphenhydrAMINE HCL 50 MG/ML VIAL IVPUSH (14:44)
[2021-06-27 15:11] VITALS: BP 110/64; PULSE 73; RESP 18; O2SAT 98
== END 2021-06-27 15:45 | disposition home or self-care (01) ==
PROVIDERS: Emergency Provider Emergency Medicine; PCP Internal Medicine
DX: R10.9 Unspecified abdominal pain (principal); Z79.899 Other long term (current) drug therapy
CPT/HCPCS: 36415; 74177; 80048; 80076; 81001; 81025; 83690; 85025; 93005; 96374; 96375; 99284; J1200; J2930; Q9967

== ENCOUNTER 2021-07-05 16:43 | Emergency (ER) | payer MEDICAID, SELFPAY ==
[2021-07-05 16:52] VITALS: BP 116/59; PULSE 91; RESP 16; O2SAT 98; BMI 34.0
--- NOTE | 2021-07-05 16:52 | ED_ITS ---
HPI - Seizure General Chief Complaint: Seizure Stated Complaint: seizure Time Seen by Provider: 07/05/21 16:51 Source: patient and family Mode of arrival: ambulatory Limitations: no limitations History of Present Illness HPI Narrative: Patient with seizures on depakote. Mom states that she had three events today. Mom describes 7 minutes of tonic clonic movements. complaint: seizure Onset (ago): minute(s) Description of Episode: tonic-clonic movement -: minutes(s) Possible Precipitating Event: none Related Data Previous Rx's Medication Instructions Recorded naproxen 500 mg tablet 500 mg PO BID PRN #20 tab 08/16/20 cephalexin 500 mg capsule 500 mg PO QID #40 cap 04/08/21 azithromycin 250 mg tablet 250 mg PO DAILY 4 Days #4 tab 04/11/21 (Zithromax) hyoscyamine sulfate 0.125 mg tablet 0.125 mg PO QID PRN #10 tab 06/27/21 Allergies Allergy/AdvReac Type Severity Reaction Status Date / Time Iodinated Contrast Media Allergy Intermediate Facial Verified 06/27/21 14:39 Swelling clindamycin [CLINDAMYCIN] Allergy Unknown ANAPHYLAXIS Verified 03/07/21 17:25 Review of Systems Constitutional: Constitutional: Reports no additional constitutional complaints Eyes: Eyes: Reports no additional eye complaints ENT: Denies dizziness Cardiovascular: Cardiovascular: Reports no additional cardiovascular complaints Respiratory: Respiratory: Reports as per HPI Gastrointestinal: Gastrointestinal: Reports no additional gastrointestinal complaints Genitourinary: Genitourinary: Reports no additional female genitourinary complaints Musculoskeletal: Musculoskeletal: Reports no additional musculoskeletal complaints Integumentary/Breasts: Skin/Breast: Denies rash Neurologic: Reports system reviewed and no additional complaints, except as documented, Denies dizziness and Denies Sensory deficit (Neuro) Psychiatric: Psychiatric: Denies anxiety [facility] Past Medical History Medical History Epilepsy Surgical History Hx of cholecystectomy Social History Social History Patient Tobacco Use Status: Never used Tobacco Use of substances other than those prescribed or required for medical reasons: No Advance Directives: No Advance Directives Information Provided: No Physical Exam Vital Signs: Vital Signs: Last Vital Signs Pulse 91 09/07/21 18:36 Resp 18 07/05/21 18:36 BP 129/76 07/05/21 18:36 Pulse Ox 100 07/05/21 18:36 Body Mass Index 34.0 Const: Other: tremulous and tearful Nutritional Appearance: average body habitus Orientation/consciousness: oriented to person and patient oriented x3 Limitations: no limitations HENMT: Head: Yes normal to inspection Ears: external ears normal General nose exam: Normal external nose present Mouth: Normal oral and palatal mucosa present and oropharynx normal Throat: Yes posterior oropharynx normal Eyes: General: appearance normal, both eyes and all related structures Neck: Other: supple Neck: Yes normal visual inspection Chest: Chest palpation & inspection: normal inspection of the chest Resp: Auscultation: clear to auscultation bilaterally Cardio: Jugular venous distension: no JVD Rate: regular rate Rhythm: regular rhythm Heart sounds: S1 normal heart sound present and S2 normal heart sound present GI: Inspection: Yes normal to inspection Palpation (GI): Soft to palpation, nontender and No hepatosplenomegaly present Auscultation: normal bowel sounds : General: Yes no CVA tenderness Back/Spine/Pelvis: Back: no CVA tenderness Skin: General skin exam: no rashes or lesions noted Neuro: General: oriented to person and patient oriented x3 Cranial nerves: Yes CN's II-XII intact bilaterally Motor exam (neuro): 5/5 motor strength present throughout Sensory Exam: No Sensory deficit (Neuro) Extrem: General: Yes normal to inspection Psych: Appearance: grossly normal Course Reevaluation(s) Reevaluation #1: patient awake and alert, feels better has a headache Time: 18:56 MDM - Seizure Lab Data Result diagrams: 07/05/21 17:48 07/05/21 17:48 Labs: Lab Results 07/05/21 07/05/21 Range/Units 17:48 17:48 WBC 9.5 (4.8-10.8) X10*3/uL RBC 3.87 L (4.20-5.50) X10*6/uL Hgb 12.5 (12.0-16.0) g/dl Hct 36.6 L (37-47) % MCV 94.6 (80-98) fL MCH 32.3 (27.0-33.0) pg MCHC 34.2 (31.0-35.0) g/dl RDW 13.2 (11.0-16.0) % Plt Count 295 (160-400) X10*3/uL MPV 11.2 (9.4-12.3) fL Immature Gran % (Auto) 0.4 (0.0-0.4) % Neut % (Auto) 57.1 (45-73) % Lymph % (Auto) 33.7 (20-40) % [place] % (Auto) 7.9 (2-11) % Eos % (Auto) 0.4 (0-4) % Baso % (Auto) 0.5 (0-2) % Lymph # (Auto) 3.2 (1.2-4.9) X10*3/uL [place] # (Auto) 0.8 (0.1-1.2) X10*3/uL Eos # (Auto) 0.0 (0.0-0.4) X10*3/uL Baso # (Auto) 0.1 (0.0-0.2) X10*3/uL Abs Immat Gran (auto) 0.04 H (0.00-0.03) X10*3/uL Absolute Neuts (auto) 5.4 (2.0-8.3) X10*3/uL Absolute Nucleated RBC 0.000 (0.0-0.012) X10*3/uL Nucleated RBC % (auto) 0.0 (0.0-0.2) /100WBC Sodium 137 (135-145) mmol/L Potassium 3.9 (3.3-5.1) mmol/L Chloride 104 (96-108) mmol/L Carbon Dioxide 25 (22-29) mmol/L Anion Gap 12 (12-20) BUN 11 (9-16) mg/dL Creatinine 0.66 (0.5-1.4) mg/dL Estim Creat Clear Calc 116.9 Estimated GFR > 60 Random Glucose 104 (60-115) mg/dL Calcium 9.3 (8.4-10.2) mg/dL Magnesium 1.8 (1.6-2.6) mg/dL Valproic Acid 64.5 (50.0-100.0) mcg/mL Discharge Plan Discharge Clinical Impression: Epileptic seizure Qualifiers: Epilepsy type: other Intractability: not intractable Status epilepticus: w ithout status epilepticus Qualified Code(s): G40.802 - Other epilepsy, not in tractable, without status epilepticus Patient Disposition: Home, Self-Care Instructions: Epilepsy (ED) Prescriptions: No Action naproxen 500 mg tablet 500 mg PO BID PRN (Reason: pain) Qty: 20 RF: 0 cephalexin 500 mg capsule 500 mg PO QID Qty: 40 RF: 0 azithromycin [Zithromax] 250 mg tablet 250 mg PO DAILY 4 Days Qty: 4 RF: 0 hyoscyamine sulfate 0.125 mg tablet 0.125 mg PO QID PRN (Reason: dyspepsia) Qty: 10 RF: 0 Referrals: [facility] [Primary Care Provider] - 2 days
[2021-07-05 17:02] VITALS: BP 107/56; PULSE 94; RESP 18; O2SAT 98
--- NOTE | 2021-07-05 17:11 | PC.NURSE ---
pt is currently awake and answering questions, not incontinent of urine or bowel, vs stable, ns on the monitor, seizures pads in place. mom at bedside
[2021-07-05 17:53] LABS: MANUAL DIFF FLAG NO
[2021-07-05 17:56] LABS: Basophils Absolute Auto 0.1 X10*3/uL (0.0-0.2); Basophils Percent Auto 0.5 % (0-2); Eosinophils Percent Auto 0.4 % (0-4); Hematocrit 36.6 % (37-47); Hemoglobin 12.5 g/dl (12.0-16.0); Imm Gran Abs Auto 0.04 X10*3/uL (0.00-0.03); Imm Gran Pct Auto 0.4 % (0.0-0.4); Lymphocytes Absolute Auto 3.2 X10*3/uL (1.2-4.9); Lymphocytes Percent Auto 33.7 % (20-40); Mean Corpuscular HGB Conc 34.2 g/dl (31.0-35.0); Mean Corpuscular Hemoglobin 32.3 pg (27.0-33.0); Mean Corpuscular Volume 94.6 fL (80-98); Mean Platelet Volume 11.2 fL (9.4-12.3); Monocytes Absolute Auto 0.8 X10*3/uL (0.1-1.2); Monocytes Percent Auto 7.9 % (2-11); Neutrophils Absolute Auto 5.4 X10*3/uL (2.0-8.3); Neutrophils Percent Auto 57.1 % (45-73); Platelet Count 295 X10*3/uL (160-400); Red Blood Count 3.87 X10*6/uL (4.20-5.50); Red Cell Distribution Width 13.2 % (11.0-16.0); White Blood Count 9.5 X10*3/uL (4.8-10.8)
[2021-07-05 18:08] LABS: Anion Gap 12 (12-20); Blood Urea Nitrogen 11 mg/dL (9-16); Calcium 9.3 mg/dL (8.4-10.2); Carbon Dioxide 25 mmol/L (22-29); Chloride 104 mmol/L (96-108); Creatinine Clr Calc Pharmacy 116.9; Estimated Glomerular Filt Rate > 60; Glucose Random 104 mg/dL (60-115); Magnesium 1.8 mg/dL (1.6-2.6); Potassium 3.9 mmol/L (3.3-5.1); Sodium 137 mmol/L (135-145)
[2021-07-05 18:15] LABS: Valproate 64.5 mcg/mL (50.0-100.0)
[2021-07-05 18:36] VITALS: BP 129/76; PULSE 91; RESP 18; O2SAT 100
--- NOTE | 2021-07-05 18:37 | PC.NURSE ---
pt resting peacefully no seizure like activity at this time, vs stable, ns on the monitor
[2021-07-05] MEDS: Acetaminophen 325 MG TABLET 975 MG PO (19:03)
== END 2021-07-05 19:12 | disposition home or self-care (01) ==
PROVIDERS: Emergency Provider Emergency Medicine
DX: G40.802 Other epilepsy, not intractable, without status epilepticus (principal)
CPT/HCPCS: 36415; 80048; 80164; 83735; 85025; 99284

== ENCOUNTER 2021-08-21 01:42 | Emergency (ER) | payer MEDICAID, SELFPAY ==
[2021-08-21 02:01] VITALS: BP 112/39; PULSE 80; RESP 20; TEMP 36.6; O2SAT 98; BMI 29.8
--- NOTE | 2021-08-21 02:18 | ED.URI ---
HPI - URI/Sore Throat General Chief Complaint: Upper Respiratory Symptoms Stated Complaint: runny nose Time Seen by Provider: 08/21/21 02:01 Source: patient Mode of arrival: ambulatory Limitations: no limitations History of Present Illness HPI Narrative: Patient comes emergency room complaining of a sore throat for 2 days. Patient also complaining of stuffy nose. Patient states that she has had no fever to her knowledge. All of her kids at home are sick with URI as well. Patient states that she is fully immunized for COVID-19. Patient denies chest pain, no shortness of breath, no vomiting or diarrhea. Related Data Previous Rx's Medication Instructions Recorded naproxen 500 mg tablet 500 mg PO BID PRN #20 tab 08/16/20 cephalexin 500 mg capsule 500 mg PO QID #40 cap 04/08/21 azithromycin 250 mg tablet 250 mg PO DAILY 4 Days #4 tab 04/11/21 (Zithromax) hyoscyamine sulfate 0.125 mg tablet 0.125 mg PO QID PRN #10 tab 06/27/21 Allergies Allergy/AdvReac Type Severity Reaction Status Date / Time Iodinated Contrast Media Allergy Intermediate Facial Verified 08/21/21 02:05 Swelling clindamycin [CLINDAMYCIN] Allergy Unknown ANAPHYLAXIS Verified 08/21/21 02:05 Review of Systems Review of Systems: Constitutional : No Weight loss, No Fever, No Chills, No Night Sweats, No Fatigue, No Malaise ENT/Mouth : No Hearing loss, No Ear Pain, complaining of rhinorrhea, nasal congestion, mild sinus pressure without pain, sore throat, no difficulty swallowing Eyes: No Eye Pain, No Swelling, No Redness, No Foreign Body, No Discharge, No Vision Changes Cardiovascular : No Chest Pain, No SOB, No Dyspnea on Exertion, No Orthopnea, No Edema, No Palpitations Respiratory : No Cough, No Sputum, No Wheezing, No Smoke Exposure, No Dyspnea Gastrointestinal : No Nausea, No Vomiting, No Diarrhea, No Constipation, No abdominal Pain, No Hematochezia, No Melena Genitourinary : no irregular bleeding, No Dysuria, No Urinary Frequency, No Hematuria, No Urinary Incontinence, No Urgency, No Flank Pain, No Urinary Flow Changes, No Hesitancy Musculoskeletal : No joint pain, No Myalgias, No Joint Swelling Skin : No Skin Lesions, No rash Neuro : No Weakness, No Numbness, No Paresthesias, No Loss of Consciousness, No Dizziness, No Headache Psych : No Anxiety/Panic, No Depression, No SI/HI/AH/VH, No Social Issues, Heme/Lymph: No Bruising, No Bleeding,No Lymphadenopathy Endocrine : No Polyuria, No Polydipsia, No Temperature Intolerance PMF Past Medical History Medical History Epilepsy Surgical History Hx of cholecystectomy Social History Social History Patient Tobacco Use Status: Never used Tobacco Advance Directives: No Advance Directives Information Provided: Yes Patient : No Physical Exam Vital Signs: Vital Signs: Last Vital Signs Temp 97.9 F 08/21/21 02:01 Pulse 80 08/21/21 02:01 Resp 20 08/21/21 02:01 BP 112/39 L 08/21/21 02:01 Pulse Ox 98 08/21/21 02:01 Body Mass Index 29.8 Const: Other: Appearance: Alert. Oriented X3. No acute distress. Eyes: Pupils equal, round and reactive to light. ENT: Erythematous oropharynx, no exudates, no visualized abscess is Neck: Normal inspection. Neck supple. No lymph nodes noted. No crepitus CVS: Normal heart rate and rhythm. Pulses normal. Normal S1 and S2 Respiratory: No respiratory distress. Breath sounds normal. No Wheezing. No rales Abdomen: Soft and nontender. No rigidity. No distention. Skin: Skin warm and dry. Normal skin color. Normal skin turgor. Extremities: No lower extremity edema. No lower extremity edema. No Lacerations. No Rash Neuro: Oriented X 3. No motor deficit. No sensory deficit. Moving all extermities. No slurred speech. Course Course Course Narrative: Patient tested negative for COVID-19 and for strep. Patient likely having viral pharyngitis. Patient was given 1 dose of p.o. Decadron and viscous lidocaine for symptomatic relief MDM - URI/Sore Throat Lab Data Labs: Lab Results 08/21/21 08/21/21 Range/Units 02:07 02:07 COVID-19 (TOÑA) Negative (Negative) COVID-19 Clin Com See Note S. pyogenes GrpA YIN Negative (Negative) Discharge Plan Discharge Clinical Impression: Acute viral pharyngitis Patient Disposition: Home, Self-Care Instructions: Pharyngitis (ED) Additional Instructions: Please follow-up with your primary care physician tomorrow. If you have any worsening or new symptoms, please return to the emergency room or call 911 Prescriptions: No Action naproxen 500 mg tablet 500 mg PO BID PRN (Reason: pain) Qty: 20 RF: 0 cephalexin 500 mg capsule 500 mg PO QID Qty: 40 RF: 0 azithromycin [Zithromax] 250 mg tablet 250 mg PO DAILY 4 Days Qty: 4 RF: 0 hyoscyamine sulfate 0.125 mg tablet 0.125 mg PO QID PRN (Reason: dyspepsia) Qty: 10 RF: 0
[2021-08-21 02:26] LABS: Strep A Nucleic Acid Negative (Negative)
[2021-08-21 02:30] LABS: COVID-19 Test Negative (Negative); IDNOW Serial# 9DD0AD1C
[2021-08-21] MEDS: Lidocaine HCl Viscous 2 % 15 ML SOLUTION MUCOUS MEM (02:45)
[2021-08-21] MEDS: dexAMETHasone sod phosphate 4 MG/ML VIAL 6 MG IVPUSH (02:45)
== END 2021-08-21 03:02 | disposition home or self-care (01) ==
PROVIDERS: Emergency Provider Emergency Medicine
DX: J02.8 Acute pharyngitis due to other specified organisms (principal); Z20.822 Contact with and (suspected) exposure to COVID-19; Z79.899 Other long term (current) drug therapy
CPT/HCPCS: 36415; 87635; 87651; 96374; 99283; 99284; J1100

== ENCOUNTER 2021-10-23 21:26 | Emergency (ER) | payer MEDICAID, SELFPAY ==
[2021-10-23 22:47] VITALS: BP 125/58; PULSE 82; RESP 16; TEMP 37.1; O2SAT 98; BMI 34.5
[2021-10-23 23:18] LABS: Strep A Nucleic Acid Negative (Negative)
[2021-10-23 23:47] LABS: COVID-19 Test Invalid (Negative); IDNOW Serial# 9DD0AD1C
== END 2021-10-24 06:54 | disposition left against medical advice (07) ==
PROVIDERS: Student in an Organized Health Care Education/Training Program; Emergency Provider Emergency Medicine; PCP Internal Medicine
DX: J02.9 Acute pharyngitis, unspecified (principal); Z20.822 Contact with and (suspected) exposure to COVID-19
CPT/HCPCS: 36415; 87635; 87651; 99281; 99283

== ENCOUNTER 2021-10-27 11:06 | Outpatient (REF) | payer MEDICAID, SELFPAY ==
[2021-10-27 11:40] LABS: MANUAL DIFF FLAG NO
[2021-10-27 11:54] LABS: Basophils Percent Auto 0.2 % (0-2); Eosinophils Absolute Auto 0.1 X10*3/uL (0.0-0.4); Eosinophils Percent Auto 0.6 % (0-4); Hematocrit 38.3 % (37.0-47.0); Hemoglobin 12.6 g/dl (12.0-16.0); Imm Gran Abs Auto 0.04 X10*3/uL (0.00-0.03); Imm Gran Pct Auto 0.5 % (0.0-0.4); Lymphocytes Absolute Auto 2.4 X10*3/uL (1.2-4.9); Lymphocytes Percent Auto 28.4 % (20-40); Mean Corpuscular HGB Conc 32.9 g/dl (31.0-35.0); Mean Corpuscular Hemoglobin 32.6 pg (27.0-33.0); Mean Corpuscular Volume 99.2 fL (80.0-98.0); Mean Platelet Volume 11.3 fL (9.4-12.3); Monocytes Absolute Auto 0.7 X10*3/uL (0.1-1.2); Monocytes Percent Auto 7.7 % (2-11); Neutrophils Absolute Auto 5.3 x10*3/uL (2.0-8.3); Neutrophils Percent Auto 62.6 % (45-73); Platelet Count 262 X10*3/uL (160-400); Red Blood Count 3.86 X10*6/uL (4.20-5.50); Red Cell Distribution Width 12.6 % (11.0-16.0); White Blood Count 8.5 X10*3/uL (4.8-10.8)
[2021-10-27 12:02] LABS: Estimated Average Glucose 123 mg/dL; Hemoglobin A1c % 5.9 %
[2021-10-27 12:21] LABS: Alanine Aminotransferase 32 U/L (0-31); Albumin Level 4.1 g/dL (3.5-5.0); Alkaline Phosphatase 59 U/L (39-117); Anion Gap 10 (12-20); Aspartate Amino Transferase 27 U/L (5-31); Bilirubin Direct 0.3 mg/dL (0.0-0.5); Bilirubin Total 0.7 mg/dL (0.0-1.0); Blood Urea Nitrogen 15 mg/dL (9-16); Carbon Dioxide 27 mmol/L (22-29); Chloride 104 mmol/L (96-108); Cholesterol 161 mg/dL; Estimated Glomerular Filt Rate > 60; Glucose Random 113 mg/dL (60-115); HDL Cholesterol 34 mg/dL; LDL Cholesterol Calculated 106 mg/dl; Potassium 4.4 mmol/L (3.3-5.1); Sodium 137 mmol/L (135-145); Total Protein 7.6 g/dL (6.5-8.0); Triglycerides 109 mg/dL
[2021-10-27 12:38] LABS: HIV AB/AG Nonreactive (Nonreactive); HIV Num 1 0.07 S/CO (0.00-0.99)
[2021-10-27 12:42] LABS: TSH reflex Free T4 2.89 uIU/mL (0.32-4.0)
[2021-10-28 01:46] LABS: CT PCR NOT DETECTED (Not Detect.); NG PCR NOT DETECTED (Not Detect.)
[2021-10-28 08:44] LABS: Syphilis Screen Nonreactive (Nonreactive)
== END 2021-10-27 11:07 | disposition home or self-care (01) ==
LOC: HO.LAB 11:06
PROVIDERS: PCP Internal Medicine; Visit Provider Internal Medicine
DX: Z11.4 Encounter for screening for human immunodeficiency virus [HIV] (principal); Z11.3 Encounter for screening for infections with a predominantly sexual mode of transmission; R42 Dizziness and giddiness
CPT/HCPCS: 80048; 80061; 80076; 83036; 84443; 85025; 86780; 87389; 87491; 87591

== ENCOUNTER 2021-11-05 11:32 | Emergency (ER) | payer MEDICAID, SELFPAY ==
--- NOTE | ~2021-11-05 | XR_ITS ---
EXAMINATION: XR CHEST CLINICAL INFORMATION: Cough for one week. Back pain. COMPARISON: Chest x-ray 03/27/2020 TECHNIQUE: 2 views of the chest were obtained. FINDINGS: Cardiac silhouette is normal in size. Lungs are well aerated. There is no lobar consolidation. No pleural effusion or pneumothorax. Minimal degenerative changes of the spine. Surgical clips of the upper abdomen. XR/XR chest 2V IMPRESSION: No acute pulmonary pathology.
[2021-11-05 12:09] VITALS: BP 109/57; PULSE 79; RESP 16; TEMP 36.7; O2SAT 99; BMI 34.5
[2021-11-05 12:36] LABS: COVID-19 Test Negative (Negative)
--- NOTE | 2021-11-05 14:21 | ED_ITS ---
HPI - URI/Sore Throat General Chief Complaint: General Medical Stated Complaint: Sore throat/loss of voice Time Seen by Provider: 11/05/21 13:43 Source: patient Mode of arrival: ambulatory Limitations: no limitations History of Present Illness HPI Narrative: 31-year-old female presenting to the ED with complaints of body aches, chills, sore throat, nasal congestion/rhinorrhea and a cough with yellow/green color sputum with pain when she takes a deep breath on the right lower back aspect for the past week worse today. Reports that she is fully vaccinated to COVID. She denies recent travel or sick contacts. She denies any measured fevers, dizziness, headaches, neck pain/stiffness, trouble swallowing or breathing, chest pain, nausea/vomiting/diarrhea, constipation, rashes, dysuria or any other symptoms complaints or concerns at this time. MD elicited complaint: cough, sore throat, rhinorrhea and nasal congestion Onset (ago): week(s) (1) Consistency: constant and progressively worsening Severity: mild Description of mucous: clear, watery and yellow Able to tolerate fluids by mouth: Yes Exacerbating factors: swallowing and deep breaths Relieving factors: nothing Associated symptoms: chills, myalgias, rhinorrhea, nasal congestion and other Treatments prior to arrival: none Related Data Previous Rx's Medication Instructions Recorded naproxen 500 mg tablet 500 mg PO BID PRN #20 tab 08/16/20 cephalexin 500 mg capsule 500 mg PO QID #40 cap 04/08/21 azithromycin 250 mg tablet 250 mg PO DAILY 4 Days #4 tab 04/11/21 (Zithromax) hyoscyamine sulfate 0.125 mg tablet 0.125 mg PO QID PRN #10 tab 06/27/21 albuterol sulfate 90 mcg/actuation 1 inh INHALATION QID PRN #8.5 g 11/05/21 aerosol inhaler amoxicillin 875 mg-potassium 1 tab PO BID 10 Days #20 tab 11/05/21 clavulanate 125 mg tablet (Augmentin) codeine 10 mg-guaifenesin 100 mg/5 5 ml PO Q6H PRN #120 ml 11/05/21 mL oral liquid (Guaifenesin AC) Allergies Allergy/AdvReac Type Severity Reaction Status Date / Time Iodinated Contrast Media Allergy Intermediate Facial Verified 08/21/21 02:05 Swelling clindamycin [CLINDAMYCIN] Allergy Unknown ANAPHYLAXIS Verified 08/21/21 02:05 Review of Systems Review of Systems: Constitutional : Positive chills/fatigue/malaise, No Weight loss, No Fever,No Night Sweats ENT/Mouth : Positive nasal congestion/rhinorrhea/sore throat, No Hearing loss, No Ear Pain, No Sinus Pain, No Hoarseness, No Swallowing Difficulty Eyes: No Eye Pain, No Swelling, No Redness, No Foreign Body, No Discharge, No Vision Changes Cardiovascular : No Chest Pain, No SOB, No Dyspnea on Exertion, No Orthopnea, No Edema, No Palpitations Respiratory : Positive Cough, positive Sputum, No Wheezing, No Smoke Exposure, No Dyspnea Gastrointestinal : No Nausea, No Vomiting, No Diarrhea, No Constipation, No abdominal Pain, No Hematochezia, No Melena Genitourinary : no irregular bleeding, No Dysuria, No Urinary Frequency, No Hematuria, No Urinary Incontinence, No Urgency, No Flank Pain, No Urinary Flow Changes, No Hesitancy Musculoskeletal : No joint pain, positive Myalgias, No Joint Swelling Skin : No Skin Lesions, No rash Neuro : No Weakness, No Numbness, No Paresthesias, No Loss of Consciousness, No Dizziness, No Headache Psych : No Anxiety/Panic, No Depression, No SI/HI/AH/VH, No Social Issues, Heme/Lymph: No Bruising, No Bleeding,No Lymphadenopathy Endocrine : No Polyuria, No Polydipsia, No Temperature Intolerance Yes all other systems are reviewed and are negative PMFSH Past Medical History Attestation statement: The following information was validated with the patient. Medical History Epilepsy Surgical History Hx of cholecystectomy Social History Social History Patient Tobacco Use Status: Never used Tobacco Advance Directives: No Advance Directives Information Provided: No Patient : No Physical Exam Vital Signs: Vital Signs: Last Vital Signs Temp 98.0 F 11/05/21 12:09 Pulse 79 11/05/21 12:09 Resp 16 11/05/21 12:09 BP 109/57 L 11/05/21 12:09 Pulse Ox 99 11/05/21 12:09 BMI result Body Mass Index 34.5 vital signs have been reviewed as normal and appeared to be correct. Blood pressure normal. Heart rate normal. Respiration rate normal. Temperature normal. Oxygen saturation normal. Appearance: Alert. Oriented X3. No acute distress. Head: Normal external exam. Normocephalic. Atraumatic. Eyes: PERRLA. EOMI. Conjunctiva and sclera normal. Eyelids normal. ENT: EAC normal. TM's Normal. Pharynx normal. Uvula midline. Moist mucous membranes. No trismus noted. No drooling noted. No muffled voice noted. Neck: Normal inspection. Neck supple. FROM. No adenopathy. Thyroid Normal. No meningeal signs. No neck mass noted. CVS: Normal heart rate and rhythm. Heart sound normal. Pulses normal throughout. No murmurs/rales/gallops. Respiratory: No respiratory distress. Painless inspiration. Breath sounds normal. No wheezes/rales/rhonchi noted. Chest nontender. No accessory muscle usage noted or decreased air movement noted. Abdomen: Soft and nontender. Bowel sounds normal in all 4 quadrants. No distention noted. No organomegaly noted. No visible injury noted. Back: No CVA tenderness. Full range of motion noted. No gary hes/lesion/induration/fluctuance or signs of infection noted. Skin: Skin warm and dry. Normal skin color. Normal skin turgor. No rashes/lesions/lacerations noted. Extremities: No lower extremity edema. No calf tenderness is noted. Extremities exhibit normal range of motion. Extremities nontender. Neuro: Oriented X 3. No motor deficit. No sensory deficit. Reflexes normal. Normal steady gait. No focal neuro deficits noted. Vascular: + radial pulses/+ 2 distal pedal pulses/+2 dorsalis pedis b/l. Normal cap refill. No cyanosis noted to upper extremity nails and lower extremity toes nails. Course Course Course Narrative: 31-year-old female presenting to the ED with complaints of donna dy aches, chills, sore throat, nasal congestion/rhinorrhea and a cough with yellow/green color sputum with pain when she takes a deep breath on the right lower back aspect for the past week worse today. Reports that she is fully vaccinated to COVID. She denies recent travel or sick contacts. She denies any measured fevers, dizziness, headaches, neck pain/stiffness, trouble swallowing or breathing, chest pain, nausea/vomiting/diarrhea, constipation, rashes, dysuria or any other symptoms complaints or concerns at this time. Patient negative for COVID. Will obtain a chest x-ray if negative will DC home instructions to self isolate per CDC guidelines or to have repeat COVID testing within the next few days. Along with symptomatic treatment for possible bronchitis instructions to follow-up with primary care provider. Patient understands agrees with this plan. MDM - URI/Sore Throat Medical Records Attestation: I reviewed the patient's medical records. Lab Data Attestation: I reviewed the patient's lab results. Labs: Lab Results 11/05/21 Range/Units 12:11 COVID-19 (TOÑA) Negative (Negative) COVID-19 Clin Com See Note Imaging Data Chest x-ray: Attestation: I personally reviewed and interpreted this imaging study as follows: Radiologist's impression: FINDINGS: Cardiac silhouette is normal in size. Lungs are well aerated. There is no lobar consolidation. No pleural effusion or pneumothorax. Minimal degenerative changes of the spine. Surgical clips of the upper abdomen. XR/XR chest 2V IMPRESSION: No acute pulmonary pathology. Discharge Plan Discharge Clinical Impression: Bronchitis Patient Disposition: Home, Self-Care Instructions: Acute Bronchitis (ED) Prescriptions: New codeine-guaifenesin [Guaifenesin AC] 10-100 mg/5 mL liquid 5 ml PO Q6H PRN (Reason: cold symptoms) Qty: 120 RF: 0 albuterol sulfate 90 mcg/actuation HFA aerosol inhaler 1 inh inhalation QID PRN (Reason: shortness of breath or wheezing) Qty: 8.5 RF: 0 amoxicillin-pot clavulanate [Augmentin] 875-125 mg tablet 1 tab PO BID 10 Days Qty: 20 RF: 0 No Action naproxen 500 mg tablet 500 mg PO BID PRN (Reason: pain) Qty: 20 RF: 0 cephalexin 500 mg capsule 500 mg PO QID Qty: 40 RF: 0 azithromycin [Zithromax] 250 mg tablet 250 mg PO DAILY 4 Days Qty: 4 RF: 0 hyoscyamine sulfate 0.125 mg tablet 0.125 mg PO QID PRN (Reason: dyspepsia) Qty: 10 RF: 0 Referrals: Kath Venegas MD [Primary Care Provider] - 2 days Stand Alone Forms: Work/School Release Print Language: Lithuanian
== END 2021-11-05 15:05 | disposition home or self-care (01) ==
PROVIDERS: Emergency Provider Internal Medicine; PCP Internal Medicine
DX: J40 Bronchitis, not specified as acute or chronic (principal); Z20.822 Contact with and (suspected) exposure to COVID-19
CPT/HCPCS: 71046; 87635; 99283

== ENCOUNTER 2021-11-21 15:46 | Outpatient (REF) | payer MEDICAID, SELFPAY ==
--- NOTE | 2021-11-21 | PFT_ITS ---
Forced vital capacity is normal. FEV1 71%, moderately decreased FEV1/FVC ratio 70. FEF 25-75 is 42% of normal and MVV 42% of normal. Post bronchodilator therapy, there is a significant improvement in FEV1, [id number], and MVV. Total lung capacity 90%. Residual volume 108%, normal. Diffusion capacity normal. CONCLUSION: [id number] degree of obstructive airway disorder. There is significant response to bronchodilator therapy indicating the main diagnosis to be bronchial asthma. Clinical correlation is recommended. MD GEOVANY Islas/MODL / [id number]
== END 2021-11-21 15:47 | disposition home or self-care (01) ==
LOC: HO.RESP 15:46
PROVIDERS: PCP Internal Medicine; Visit Provider Internal Medicine
DX: J45.909 Unspecified asthma, uncomplicated (principal)
CPT/HCPCS: 94060; 94727; 94729

== ENCOUNTER 2022-01-27 15:45 | Emergency (ER) | payer MEDICAID, SELFPAY ==
--- NOTE | 2022-01-27 17:14 | PC.NURSE ---
pt called in [facility]wr mult times . no response, she states she fell asleep in mwr
[2022-01-27 17:15] VITALS: BP 110/57; PULSE 87; RESP 19; TEMP 36.6; O2SAT 98; BMI 36.3
[2022-01-27 18:24] LABS: MANUAL DIFF FLAG NO
[2022-01-27 18:41] LABS: Basophils Percent Auto 0.2 % (0-2); Eosinophils Percent Auto 0.2 % (0-4); Hematocrit 37.3 % (37.0-47.0); Hemoglobin 12.4 g/dl (12.0-16.0); Imm Gran Abs Auto 0.02 X10*3/uL (0.00-0.03); Imm Gran Pct Auto 0.3 % (0.0-0.4); Lymphocytes Absolute Auto 1.6 X10*3/uL (1.2-4.9); Mean Corpuscular HGB Conc 33.2 g/dl (31.0-35.0); Mean Corpuscular Hemoglobin 32.5 pg (27.0-33.0); Mean Corpuscular Volume 97.9 fL (80.0-98.0); Mean Platelet Volume 11.6 fL (9.4-12.3); Monocytes Absolute Auto 0.5 X10*3/uL (0.1-1.2); Monocytes Percent Auto 8.6 % (2-11); Neutrophils Absolute Auto 3.9 x10*3/uL (2.0-8.3); Neutrophils Percent Auto 64.7 % (45-73); Platelet Count 228 X10*3/uL (160-400); Red Blood Count 3.81 X10*6/uL (4.20-5.50); Red Cell Distribution Width 12.7 % (11.0-16.0); White Blood Count 6.1 X10*3/uL (4.8-10.8)
[2022-01-27 18:48] LABS: Appearance Urine HAZY; Color Urine YELLOW; Glucose Urine UA NEG (NEG); Leukocyte Esterase Urine NEG (NEG); Nitrite Urine NEG (NEG); Specific Gravity - Urine >= 1.030 (1.005-1.025); UACC Culture Trigger NO; UPreg QC Valid YES; Urine Blood NEG (NEG); Urine Ketones 5 MG/DL (NEG); Urine Pregnancy NEGATIVE (NEGATIVE); Urine Protein 1+ MG/DL (NEG-TRACE)
[2022-01-27 18:57] LABS: Alanine Aminotransferase 81 U/L (0-31); Albumin Level 4.2 g/dL (3.5-5.0); Alkaline Phosphatase 58 U/L (39-117); Anion Gap 12 (12-20); Aspartate Amino Transferase 112 U/L (5-31); Bilirubin Direct 0.3 mg/dL (0.0-0.5); Bilirubin Total 0.7 mg/dL (0.0-1.0); Blood Urea Nitrogen 14 mg/dL (9-16); Calcium 8.9 mg/dL (8.4-10.2); Carbon Dioxide 29 mmol/L (22-29); Chloride 98 mmol/L (96-108); Creatinine Clr Calc Pharmacy 125.8; Estimated Glomerular Filt Rate > 60; Glucose Random 92 mg/dL (60-115); Lipase 15 U/L (8-78); Sodium 135 mmol/L (135-145); Total Protein 7.4 g/dL (6.5-8.0)
[2022-01-27 19:00] LABS: Bacteria Urine 2+ /LPF; Mucus Urine 4+ /LPF; Squamous Epithelial Cell Urine 2+ /LPF
--- NOTE | 2022-01-27 21:26 | ED_ITS ---
HPI - Nausea/Vomiting/Diarrhea General Chief complaint: Abdominal Pain Stated complaint: vomiting/headaches/body aches Time Seen by Provider: 01/27/22 21:09 Source: patient Mode of arrival: ambulatory History of Present Illness HPI Narrative: 31-year-old female with history of epilepsy presents with several episodes of nausea, vomiting, diarrhea and positive sick contacts as her both her daughter and son have had some sort of GI viral illness. She otherwise denies fever, chills, shortness of breath, chest pain/palpitations and denies any urinary symptoms. She has been able to tolerate both liquids and solids this evening while waiting to be seen in the emergency room. She has also taken her epilepsy medication for today. Patient is status post cholecystectomy and denies any flank pain or back pain. Related Data Previous Rx's Medication Instructions Recorded naproxen 500 mg tablet 500 mg PO BID PRN #20 tab 08/16/20 cephalexin 500 mg capsule 500 mg PO QID #40 cap 04/08/21 azithromycin 250 mg tablet 250 mg PO DAILY 4 Days #4 tab 04/11/21 (Zithromax) hyoscyamine sulfate 0.125 mg tablet 0.125 mg PO QID PRN #10 tab 06/27/21 albuterol sulfate 90 mcg/actuation 1 inh INHALATION QID PRN #8.5 g 11/05/21 aerosol inhaler amoxicillin 875 mg-potassium 1 tab PO BID 10 Days #20 tab 11/05/21 clavulanate 125 mg tablet (Augmentin) codeine 10 mg-guaifenesin 100 mg/5 5 ml PO Q6H PRN #120 ml 11/05/21 mL oral liquid (Guaifenesin AC) ondansetron 4 mg disintegrating 4 mg PO Q6H PRN #7 tab 01/27/22 tablet Allergies Allergy/AdvReac Type Severity Reaction Status Date / Time Iodinated Contrast Media Allergy Intermediate Facial Verified 08/21/21 02:05 Swelling clindamycin [CLINDAMYCIN] Allergy Unknown ANAPHYLAXIS Verified 08/21/21 02:05 Review of Systems Review of Systems: Pertinent positives and negatives as stated in HPI 10 point review of systems is otherwise negative. PMFSH Past Medical History Source: nursing notes reviewed Medical History Epilepsy Surgical History Hx of cholecystectomy Social History Social History Patient Tobacco Use Status: Never used Tobacco Advance Directives: No Physical Exam Vital Signs: Vital Signs: Last Vital Signs Temp 98 F 01/27/22 17:15 Pulse 87 01/27/22 17:15 Resp 19 01/27/22 17:15 BP 110/57 L 01/27/22 17:15 Pulse Ox 98 01/27/22 17:15 BMI result Body Mass Index 36.3 VITAL SIGNS: Reviewed. GENERAL: Well developed, well nourished, in no acute distress. HEAD: Normocephalic/atraumatic EYES: PERRLA, EOMI EARS: Ext canals without abnormality OROPHARYNX: no oral lesions noted, posterior pharynx clear LUNGS: Normal breath sounds. No adventitious sounds or accessory muscle use. SpO2<98> CARDIOVASCULAR: Regular rate and rhythm without noted murmurs ABDOMEN: Soft, non-tender, non-distended with bowel sounds, no CVA tenderness NEUROLOGIC: Alert and oriented x 4. Strength and sensation to light touch were grossly intact x 4. Course Course Course Narrative: 31-year-old female with history and clinical presentation consistent with viral syndrome/gastroenteritis. Doubt intra-abdominal infections as on review on investigations there are no evidence of bacterial etiologies or anemia. Patient will receive 1 L of IV fluids for mild dehydration, antiemetic, as well as medication for headache. Re-evaluation patient feeling much better and discharged home in stable con dition tolerating oral intake. MDM - Nausea/Vomiting/Diarrhea Lab Data Result diagrams: 01/27/22 18:10 01/27/22 18:10 Labs: Lab Results 01/27/22 01/27/22 01/27/22 Range/Units 18:10 18:10 18:10 WBC 6.1 (4.8-10.8) X10*3/uL RBC 3.81 L (4.20-5.50) X10*6/uL Hgb 12.4 (12.0-16.0) g/dl Hct 37.3 (37.0-47.0) % MCV 97.9 (80.0-98.0) fL MCH 32.5 (27.0-33.0) pg MCHC 33.2 (31.0-35.0) g/dl RDW 12.7 (11.0-16.0) % Plt Count 228 (160-400) X10*3/uL MPV 11.6 (9.4-12.3) fL Immature Gran % (Auto) 0.3 (0.0-0.4) % Neut % (Auto) 64.7 (45-73) % Lymph % (Auto) 26.0 (20-40) % [place] % (Auto) 8.6 (2-11) % Eos % (Auto) 0.2 (0-4) % Baso % (Auto) 0.2 (0-2) % Lymph # (Auto) 1.6 (1.2-4.9) X10*3/uL [place] # (Auto) 0.5 (0.1-1.2) X10*3/uL Eos # (Auto) 0.0 (0.0-0.4) X10*3/uL Baso # (Auto) 0.0 (0.0-0.2) X10*3/uL Abs Immat Gran (auto) 0.02 (0.00-0.03) X10*3/uL Absolute Neuts (auto) 3.9 (2.0-8.3) x10*3/uL Absolute Nucleated RBC 0.000 (0.0-0.012) X10*3/uL Nucleated RBC % (auto) 0.0 (0.0-0.2) /100WBC Sodium 135 (135-145) mmol/L Potassium 4.0 (3.3-5.1) mmol/L Chloride 98 (96-108) mmol/L Carbon Dioxide 29 (22-29) mmol/L Anion Gap 12 (12-20) BUN 14 (9-16) mg/dL Creatinine 0.63 (0.5-1.4) mg/dL Estim Creat Clear Calc 125.8 Estimated GFR > 60 Random Glucose 92 (60-115) mg/dL Calcium 8.9 (8.4-10.2) mg/dL Total Bilirubin 0.7 (0.0-1.0) mg/dL Direct Bilirubin 0.3 (0.0-0.5) mg/dL AST 112 H (5-31) U/L ALT 81 H (0-31) U/L Alkaline Phosphatase 58 (39-117) U/L Total Protein 7.4 (6.5-8.0) g/dL Albumin 4.2 (3.5-5.0) g/dL Lipase 15 (8-78) U/L Urine Color YELLOW Urine Appearance HAZY Urine pH 6.0 (5.0-8.0) Ur Specific [place] >= 1.030 H (1.005-1.025) Urine Protein 1+ H (NEG-TRACE) MG/DL Urine Glucose (UA) NEG (NEG) MG/DL Urine Ketones 5 (NEG) MG/DL Urine Blood NEG (NEG) Urine Nitrite NEG (NEG) Ur Leukocyte Esterase NEG (NEG) Urine RBC 1-4 (0) /HPF Urine WBC 1-4 (0-4) /HPF Ur Squamous Epith Cells 2+ /LPF Urine Bacteria 2+ /LPF Urine Mucus 4+ /LPF Urine Test (NEGATIVE) 01/27/22 Range/Units 18:10 WBC (4.8-10.8) X10*3/uL RBC (4.20-5.50) X10*6/uL Hgb (12.0-16.0) g/dl Hct (37.0-47.0) % MCV (80.0-98.0) fL MCH (27.0-33.0) pg MCHC (31.0-35.0) g/dl RDW (11.0-16.0) % Plt Count (160-400) X10*3/uL MPV (9.4-12.3) fL Immature Gran % (Auto) (0.0-0.4) % Neut % (Auto) (45-73) % Lymph % (Auto) (20-40) % [place] % (Auto) (2-11) % Eos % (Auto) (0-4) % Baso % (Auto) (0-2) % Lymph # (Auto) (1.2-4.9) X10*3/uL [place] # (Auto) (0.1-1.2) X10*3/uL Eos # (Auto) (0.0-0.4) X10*3/uL Baso # (Auto) (0.0-0.2) X10*3/uL Abs Immat Gran (auto) (0.00-0.03) X10*3/uL Absolute Neuts (auto) (2.0-8.3) x10*3/uL Absolute Nucleated RBC (0.0-0.012) X10*3/uL Nucleated RBC % (auto) (0.0-0.2) /100WBC Sodium (135-145) mmol/L Potassium (3.3-5.1) mmol/L Chloride (96-108) mmol/L Carbon Dioxide (22-29) mmol/L Anion Gap (12-20) BUN (9-16) mg/dL Creatinine (0.5-1.4) mg/dL Estim Creat Clear Calc Estimated GFR Random Glucose (60-115) mg/dL Calcium (8.4-10.2) mg/dL Total Bilirubin (0.0-1.0) mg/dL Direct Bilirubin (0.0-0.5) mg/dL AST (5-31) U/L ALT (0-31) U/L Alkaline Phosphatase (39-117) U/L Total Protein (6.5-8.0) g/dL Albumin (3.5-5.0) g/dL Lipase (8-78) U/L Urine Color Urine Appearance Urine pH (5.0-8.0) Ur Specific [place] (1.005-1.025) Urine Protein (NEG-TRACE) MG/DL Urine Glucose (UA) (NEG) MG/DL Urine Ketones (NEG) MG/DL Urine Blood (NEG) Urine Nitrite (NEG) Ur Leukocyte Esterase (NEG) Urine RBC (0) /HPF Urine WBC (0-4) /HPF Ur Squamous Epith Cells /LPF Urine Bacteria /LPF Urine Mucus /LPF Urine Test NEGATIVE (NEGATIVE) Discharge Plan Discharge Clinical Impression: Gastroenteritis, Viral syndrome, Dehydration Patient Disposition: Home, Self-Care Instructions: Dehydration (ED), Gastroenteritis (ED), Viral Syndrome (ED) Additional Instructions: 1. Resume all home medications as prescribed. 2. Increase fluid hydration, especially with water. You have been prescribed antinausea medication. 3. Please follow-up with your primary care provider on Sunday morning. Return to the ER for worsening symptoms. Prescriptions: New ondansetron 4 mg tablet,disintegrating 4 mg PO Q6H PRN (Reason: nausea and vomiting) Qty: 7 0RF No Action naproxen 500 mg tablet 500 mg PO BID PRN (Reason: pain) Qty: 20 0RF cephalexin 500 mg capsule 500 mg PO QID Qty: 40 0RF azithromycin [Zithromax] 250 mg tablet 250 mg PO DAILY 4 Days Qty: 4 0RF hyoscyamine sulfate 0.125 mg tablet 0.125 mg PO QID PRN (Reason: dyspepsia) Qty: 10 0RF codeine-guaifenesin [Guaifenesin AC] 10-100 mg/5 mL liquid 5 ml PO Q6H PRN (Reason: cold symptoms) Qty: 120 0RF albuterol sulfate 90 mcg/actuation HFA aerosol inhaler 1 inh inhalation QID PRN (Reason: shortness of breath or wheezing) Qty: 8.5 0RF amoxicillin-pot clavulanate [Augmentin] 875-125 mg tablet 1 tab PO BID 10 Days Qty: 20 0RF Referrals: Kath Venegas MD [Primary Care Provider] - 2 days Print Language: Angolan
[2022-01-27] MEDS: Ketorolac Tromethamine 30 MG/ML VIAL 15 MG IVPUSH (21:56)
[2022-01-27] MEDS: Acetaminophen 325 MG TABLET 975 MG PO (21:56)
[2022-01-27] MEDS: ondansetron HCL 4 MG/2 ML VIAL IVPUSH (21:56)
[2022-01-27] MEDS: 0.9 % Sodium Chloride 1,000 ML 999 ML IV (21:57)
[2022-01-27 22:50] VITALS: BP 126/47; PULSE 73; RESP 16; TEMP 36.7; O2SAT 95
--- NOTE | 2022-01-27 23:06 | PC.NURSE ---
I assumed nursing care of this patient upon her arrival to bed 7 from the waiting room. She presents for evaluation of nausea, vomtiing and diarrhea that she suspects she contracted from her children who have had similar illnesses in the past two to three days. She denies chest pain. Denies difficulty breathing. She is alert, oriented x 3, makes eye contact with RN and is calm and cooperative. She denies abdominal pain but admitted to nausea. No vomiting here in the E.D. IV access and labs were obtained. pt was administered ordered IVF's and meds and, at this time, she admits to feeling better. She has been discharged at this time. She verbalized an understanding of all DC orders and she ambulated out of the ED independently and with steady gait.
== END 2022-01-27 23:09 | disposition home or self-care (01) ==
PROVIDERS: Emergency Provider Student in an Organized Health Care Education/Training Program; PCP Internal Medicine
DX: E86.0 Dehydration (principal); K52.9 Noninfective gastroenteritis and colitis, unspecified; B34.9 Viral infection, unspecified; R11.2 Nausea with vomiting, unspecified; Z90.49 Acquired absence of other specified parts of digestive tract
CPT/HCPCS: 36415; 80048; 80076; 81001; 81025; 83690; 85025; 96361; 96374; 96375; 99284; J1885; J2405

== ENCOUNTER 2022-02-22 16:53 | Emergency (ER) | payer MEDICAID, SELFPAY ==
--- NOTE | ~2022-02-22 | XR_ITS ---
EXAMINATION: XR CHEST CLINICAL INFORMATION: Seizure COMPARISON: 11/05/2021 TECHNIQUE: Frontal view of the chest was obtained. FINDINGS: Lungs are markedly hypoinflated. Allowing for this, there is probably no significant abnormalities seen involving the heart, lungs, mediastinum or bony thorax. XR/XR chest 1V IMPRESSION: Markedly hypoinflated lungs. No acute intrathoracic disease.
--- NOTE | ~2022-02-22 | CT_ITS ---
EXAMINATION: CT HEAD WITHOUT CONTRAST CLINICAL INFORMATION: Seizure COMPARISON: CT head 03/28/2020 TECHNIQUE: Contiguous axial imaging was performed from the skull base to vertex without intravenous administration of contrast. This CT examination was performed using dose optimization techniques as appropriate, variously including the following: *Automated exposure control *Adjustment of mA and/or kV according to patient size (this includes techniques or standardized protocols for targeted exams where dose is matched to indication/reason for exam; i.e. extremities or head) *Use of iterative reconstruction technique DLP: 668 mGy-cm FINDINGS: There is no evidence of acute intracranial hemorrhage or territorial infarction. No abnormal mass effect or midline shift is seen. Graves to white matter differentiation is well preserved. No extra-axial fluid collections are identified. The ventricles are normal in size. There is no abnormal attenuation within the brain parenchyma. The osseous structures and soft tissues are normal. The mastoid air cells and visualized portions of the paranasal sinuses are well aerated. CT/CT head/brain wo con IMPRESSION: No acute intracranial pathology.
--- NOTE | 2022-02-22 16:58 | ED_ITS ---
HPI - Seizure General Chief Complaint: Seizure Stated Complaint: stroke? Seizure Time Seen by Provider: 02/22/22 19:19 Source: patient and EMS Mode of arrival: EMS Limitations: physical limitation (Postictal) History of Present Illness HPI Narrative: 31-year-old female presents via EMS for 45 minute seizure. MD complaint: seizure Onset (ago): hour(s) (1) Description of Episode: tonic-clonic movement and post-event confusion Duration of episode: 45 -: minutes(s) Witnessed: Yes - by Bystander Trauma: No Seizure History: Yes Place: Home Treatments prior to arrival: none Related Data Previous Rx's Medication Instructions Recorded naproxen 500 mg tablet 500 mg PO BID PRN #20 tab 08/16/20 cephalexin 500 mg capsule 500 mg PO QID #40 cap 04/08/21 azithromycin 250 mg tablet 250 mg PO DAILY 4 Days #4 tab 04/11/21 (Zithromax) hyoscyamine sulfate 0.125 mg tablet 0.125 mg PO QID PRN #10 tab 06/27/21 albuterol sulfate 90 mcg/actuation 1 inh INHALATION QID PRN #8.5 g 11/05/21 aerosol inhaler amoxicillin 875 mg-potassium 1 tab PO BID 10 Days #20 tab 11/05/21 clavulanate 125 mg tablet (Augmentin) codeine 10 mg-guaifenesin 100 mg/5 5 ml PO Q6H PRN #120 ml 11/05/21 mL oral liquid (Guaifenesin AC) ondansetron 4 mg disintegrating 4 mg PO Q6H PRN #7 tab 01/27/22 tablet Allergies Allergy/AdvReac Type Severity Reaction Status Date / Time Iodinated Contrast Media Allergy Intermediate Facial Verified 08/21/21 02:05 Swelling clindamycin [CLINDAMYCIN] Allergy Unknown ANAPHYLAXIS Verified 08/21/21 02:05 Review of Systems Review of Systems: Yes Unobtainable due to mental condition PMFSH Past Medical History Attestation statement: The following information was validated with the patient. Source: old records reviewed Medical History Epilepsy Surgical History Hx of cholecystectomy Social History Social History Patient Tobacco Use Status: Never used Tobacco Advance Directives: No Advance Directives Information Provided: No Physical Exam Vital Signs: Vital Signs: Last Vital Signs Temp 97.7 F 02/22/22 20:49 Pulse 72 02/22/22 20:49 Resp 15 02/22/22 20:49 BP 133/59 L 02/22/22 20:49 Pulse Ox 100 02/22/22 20:49 Oxygen Flow Rate 5 02/22/22 17:17 BMI result Body Mass Index 35.4 Appearance: Alert. Appears postictal. Eyes: Pupils equal, round and reactive to light. Sclera nonicteric. ENT: Pharynx normal. Moist mucous membranes. Neck: Normal inspection. Neck supple. CVS: Normal heart rate and rhythm. Pulses normal. Respiratory: No respiratory distress. Lung sounds clear to auscultation all lobes. Abdomen: Soft and nontender. Nondistended, no rigidity. Skin: Skin warm and dry. Normal skin color. Normal skin turgor. Extremities: No lower extremity edema. Moves all extremities against resistance. Neuro: No motor deficit. No sensory deficit. Cranial nerves 2-12 intact. Course Course Course Narrative: 31-year-old female presents via EMS for seizure activity, called in as a stroke alert. Patient does have history of epileptic seizures, at the time of my assessment patient's eyes a fluttering bilaterally, she is able to squeeze both hands and move legs on command, she is not speaking, but is able to blink yes or no when asked if she is in pain. 18:30 influenza COVID negative. 18:43 patient is sleeping, even unlabored respirations. No tremors or twitching noted. 19:30 chest x-rays negative. No indication of aspiration. 19:50 CT scan of head is negative for acute findings. 21:12 patient is up giving urine sample at this time. 22:01 urinalysis is negative. Plan of care is to discharge home. Patient does understands she must follow-up with primary care physician and/or Neurology. MDM - Seizure Differential Diagnosis Differential diagnosis: Likely intractable seizure disorder, generalized seizure and epileptic seizure Medical Records Attestation: I reviewed the patient's medical records. Lab Data Attestation: I reviewed the patient's lab results. Result diagrams: 02/22/22 17:10 02/22/22 17:35 Labs: Lab Results 02/22/22 02/22/22 02/22/22 Range/Units 17:02 17:10 17:10 WBC 8.5 (4.8-10.8) X10*3/uL RBC 3.77 L (4.20-5.50) X10*6/uL Hgb 12.2 (12.0-16.0) g/dl Hct 36.8 L (37.0-47.0) % MCV 97.6 (80.0-98.0) fL MCH 32.4 (27.0-33.0) pg MCHC 33.2 (31.0-35.0) g/dl RDW 12.6 (11.0-16.0) % Plt Count 186 (160-400) X10*3/uL MPV 12.7 H (9.4-12.3) fL Immature Gran % (Auto) 0.6 H (0.0-0.4) % Neut % (Auto) 47.5 (45-73) % Lymph % (Auto) 41.0 H (20-40) % [place] % (Auto) 9.7 (2-11) % Eos % (Auto) 0.7 (0-4) % Baso % (Auto) 0.5 (0-2) % Lymph # (Auto) 3.5 (1.2-4.9) X10*3/uL [place] # (Auto) 0.8 (0.1-1.2) X10*3/uL Eos # (Auto) 0.1 (0.0-0.4) X10*3/uL Baso # (Auto) 0.0 (0.0-0.2) X10*3/uL Abs Immat Gran (auto) 0.05 H (0.00-0.03) X10*3/uL Absolute Neuts (auto) 4.0 (2.0-8.3) x10*3/uL Absolute Nucleated RBC 0.000 (0.0-0.012) X10*3/uL Nucleated RBC % (auto) 0.0 (0.0-0.2) /100WBC Sodium (135-145) mmol/L Potassium (3.3-5.1) mmol/L Chloride (96-108) mmol/L Carbon Dioxide (22-29) mmol/L Anion Gap (12-20) BUN (9-16) mg/dL Creatinine (0.5-1.4) mg/dL Estim Creat Clear Calc Estimated GFR POC Glucose 110 (60-115) mg/dL Random Glucose (60-115) mg/dL Lactic Acid (0.5-2.0) mmol/L Calcium (8.4-10.2) mg/dL Magnesium (1.6-2.6) mg/dL Total Creatine Kinase (26-140) U/L Troponin I High Sens < 3.5 (<3.5-17.0) ng/L Urine Color Urine Appearance Urine pH (5.0-8.0) Ur Specific [place] (1.005-1.025) Urine Protein (NEG-TRACE) MG/DL Urine Glucose (UA) (NEG) MG/DL Urine Ketones (NEG) MG/DL Urine Blood (NEG) Urine Nitrite (NEG) Ur Leukocyte Esterase (NEG) Influenza Type A (PCR) (Negative) Influenza Type B (PCR) (Negative) RSV RNA Qual (PCR) (Negative) SARS-CoV-2 RNA (RT-PCR) (Negative) 02/22/22 02/22/22 02/22/22 Range/Units 17:10 17:35 17:35 WBC (4.8-10.8) X10*3/uL RBC (4.20-5.50) X10*6/uL Hgb (12.0-16.0) g/dl Hct (37.0-47.0) % MCV (80.0-98.0) fL MCH (27.0-33.0) pg MCHC (31.0-35.0) g/dl RDW (11.0-16.0) % Plt Count (160-400) X10*3/uL MPV (9.4-12.3) fL Immature Gran % (Auto) (0.0-0.4) % Neut % (Auto) (45-73) % Lymph % (Auto) (20-40) % [place] % (Auto) (2-11) % Eos % (Auto) (0-4) % Baso % (Auto) (0-2) % Lymph # (Auto) (1.2-4.9) X10*3/uL [place] # (Auto) (0.1-1.2) X10*3/uL Eos # (Auto) (0.0-0.4) X10*3/uL Baso # (Auto) (0.0-0.2) X10*3/uL Abs Immat Gran (auto) (0.00-0.03) X10*3/uL Absolute Neuts (auto) (2.0-8.3) x10*3/uL Absolute Nucleated RBC (0.0-0.012) X10*3/uL Nucleated RBC % (auto) (0.0-0.2) /100WBC Sodium 138 (135-145) mmol/L Potassium 4.3 (3.3-5.1) mmol/L Chloride 104 (96-108) mmol/L Carbon Dioxide 28 (22-29) mmol/L Anion Gap 10 L (12-20) BUN 10 (9-16) mg/dL Creatinine 0.60 (0.5-1.4) mg/dL Estim Creat Clear Calc 130.3 Estimated GFR > 60 POC Glucose (60-115) mg/dL Random Glucose 113 (60-115) mg/dL Lactic Acid 1.9 (0.5-2.0) mmol/L Calcium 9.3 (8.4-10.2) mg/dL Magnesium 2.0 (1.6-2.6) mg/dL Total Creatine Kinase (26-140) U/L Troponin I High Sens (<3.5-17.0) ng/L Urine Color Urine Appearance Urine pH (5.0-8.0) Ur Specific [place] (1.005-1.025) Urine Protein (NEG-TRACE) MG/DL Urine Glucose (UA) (NEG) MG/DL Urine Ketones (NEG) MG/DL Urine Blood (NEG) Urine Nitrite (NEG) Ur Leukocyte Esterase (NEG) Influenza Type A (PCR) NEGATIVE (Negative) Influenza Type B (PCR) NEGATIVE (Negative) RSV RNA Qual (PCR) NEGATIVE (Negative) SARS-CoV-2 RNA (RT-PCR) NEGATIVE (Negative) 02/22/22 02/22/22 Range/Units 17:35 21:14 WBC (4.8-10.8) X10*3/uL RBC (4.20-5.50) X10*6/uL Hgb (12.0-16.0) g/dl Hct (37.0-47.0) % MCV (80.0-98.0) fL MCH (27.0-33.0) pg MCHC (31.0-35.0) g/dl RDW (11.0-16.0) % Plt Count (160-400) X10*3/uL MPV (9.4-12.3) fL Immature Gran % (Auto) (0.0-0.4) % Neut % (Auto) (45-73) % Lymph % (Auto) (20-40) % [place] % (Auto) (2-11) % Eos % (Auto) (0-4) % Baso % (Auto) (0-2) % Lymph # (Auto) (1.2-4.9) X10*3/uL [place] # (Auto) (0.1-1.2) X10*3/uL Eos # (Auto) (0.0-0.4) X10*3/uL Baso # (Auto) (0.0-0.2) X10*3/uL Abs Immat Gran (auto) (0.00-0.03) X10*3/uL Absolute Neuts (auto) (2.0-8.3) x10*3/uL Absolute Nucleated RBC (0.0-0.012) X10*3/uL Nucleated RBC % (auto) (0.0-0.2) /100WBC Sodium (135-145) mmol/L Potassium (3.3-5.1) mmol/L Chloride (96-108) mmol/L Carbon Dioxide (22-29) mmol/L Anion Gap (12-20) BUN (9-16) mg/dL Creatinine (0.5-1.4) mg/dL Estim Creat Clear Calc Estimated GFR POC Glucose (60-115) mg/dL Random Glucose (60-115) mg/dL Lactic Acid (0.5-2.0) mmol/L Calcium (8.4-10.2) mg/dL Magnesium (1.6-2.6) mg/dL Total Creatine Kinase 77 (26-140) U/L Troponin I High Sens (<3.5-17.0) ng/L Urine Color YELLOW Urine Appearance CLEAR Urine pH 6.0 (5.0-8.0) Ur Specific [place] 1.020 (1.005-1.025) Urine Protein NEG (NEG-TRACE) MG/DL Urine Glucose (UA) NEG (NEG) MG/DL Urine Ketones NEG (NEG) MG/DL Urine Blood NEG (NEG) Urine Nitrite NEG (NEG) Ur Leukocyte Esterase NEG (NEG) Influenza Type A (PCR) (Negative) Influenza Type B (PCR) (Negative) RSV RNA Qual (PCR) (Negative) SARS-CoV-2 RNA (RT-PCR) (Negative) Imaging Data Chest x-ray: Attestation: I personally reviewed and interpreted this imaging study as follows: Radiologist's impression: EXAMINATION: XR CHEST CLINICAL INFORMATION: Seizure COMPARISON: 11/05/2021 TECHNIQUE: Frontal view of the chest was obtained. FINDINGS: Lungs are markedly hypoinflated. Allowing for this, there is probably no significant abnormalities seen involving the heart, lungs, mediastinum or bony thorax. XR/XR chest 1V IMPRESSION: Markedly hypoinflated lungs. No acute intrathoracic disease. CT scan - head: Attestation: I personally reviewed and interpreted this imaging study as follows: Radiologist's impression: FINDINGS: There is no evidence of acute intracranial hemorrhage or territorial infarction. No abnormal mass effect or midline shift is seen. Graves to white matter differentiation is well preserved. No extra-axial fluid collections are identified. The ventricles are normal in size. There is no abnormal attenuation within the brain parenchyma. The osseous structures and soft tissues are normal. The mastoid air cells and visualized portions of the paranasal sinuses are well aerated. ? CT/CT head/brain wo con IMPRESSION: No acute intracranial pathology. ECG Data Attestation: I personally reviewed and interpreted this ECG as follows: ECG interpretation date: 02/22/22 ECG interpretation time: 17:20 Prior ECG tracings: available for review Interpretation: Vent. rate 75 BPM PA interval 132 ms QRS duration 90 ms QT/QTc 358/399 ms P-R-T axes 55 54 24 Normal sinus rhythm Normal ECG When compared with ECG of 27-JUN-2021 10:25, No significant change was found Discharge Plan Discharge Clinical Impression: Generalized seizure Patient Disposition: Home, Self-Care Instructions: Recurrent Seizures in Adults (ED) Additional Instructions: You were evaluated for prolonged seizure activity. EKG was normal sinus rhythm. Chest x-ray is negative. CT scan of the head is negative. Please follow-up with your neurologist due to adjust your seizure medications. Please do not drive for 6 months, this is a [place] state law. Thank you for choosing this emergency department for evaluation. Please follow-up with primary care physician as needed. Return to the emergency department for any new, concerning, or worsening symptoms. Prescriptions: No Action naproxen 500 mg tablet 500 mg PO BID PRN (Reason: pain) Qty: 20 0RF cephalexin 500 mg capsule 500 mg PO QID Qty: 40 0RF azithromycin [Zithromax] 250 mg tablet 250 mg PO DAILY 4 Days Qty: 4 0RF hyoscyamine sulfate 0.125 mg tablet 0.125 mg PO QID PRN (Reason: dyspepsia) Qty: 10 0RF ondansetron 4 mg tablet,disintegrating 4 mg PO Q6H PRN (Reason: nausea and vomiting) Qty: 7 0RF codeine-guaifenesin [Guaifenesin AC] 10-100 mg/5 mL liquid 5 ml PO Q6H PRN (Reason: cold symptoms) Qty: 120 0RF albuterol sulfate 90 mcg/actuation HFA aerosol inhaler 1 inh inhalation QID PRN (Reason: shortness of breath or wheezing) Qty: 8.5 0RF amoxicillin-pot clavulanate [Augmentin] 875-125 mg tablet 1 tab PO BID 10 Days Qty: 20 0RF Referrals: Miranda Miranda MD [Physician] - (Seizures uncontrolled by medication) Interventions: ED Discharge Assessment Last Done: 02/22/22 22:16 Discharge Date/Time: 02/22/22 22:23
--- NOTE | 2022-02-22 16:58 | ECG_ITS ---
Test Reason : SEIZURE Blood Pressure : / mmHG Vent. Rate : 075 BPM Atrial Rate : 075 BPM P-R Int : 132 ms QRS Dur : 090 ms QT Int : 358 ms P-R-T Axes : 055 054 024 degrees QTc Int : 399 ms Normal sinus rhythm Normal ECG When compared with ECG of 27-JUN-2021 10:25, No significant change was found Referred By: Deepali Fine Electronically Signed By:NETTIE BAER
[2022-02-22 17:06] LABS: Glucose, Whole Blood 110 mg/dL (60-115)
[2022-02-22 17:14] LABS: MANUAL DIFF FLAG NO
[2022-02-22] MEDS: LORazepam 2 MG/ML VIAL IVPUSH (17:14)
[2022-02-22 17:17] VITALS: BP 129/65; PULSE 90; RESP 16; TEMP 36.9; O2SAT 100; O2SAT 99; BMI 35.4
[2022-02-22 17:21] LABS: Basophils Percent Auto 0.5 % (0-2); Eosinophils Absolute Auto 0.1 X10*3/uL (0.0-0.4); Eosinophils Percent Auto 0.7 % (0-4); Hematocrit 36.8 % (37.0-47.0); Hemoglobin 12.2 g/dl (12.0-16.0); Imm Gran Abs Auto 0.05 X10*3/uL (0.00-0.03); Imm Gran Pct Auto 0.6 % (0.0-0.4); Lymphocytes Absolute Auto 3.5 X10*3/uL (1.2-4.9); Mean Corpuscular HGB Conc 33.2 g/dl (31.0-35.0); Mean Corpuscular Hemoglobin 32.4 pg (27.0-33.0); Mean Corpuscular Volume 97.6 fL (80.0-98.0); Mean Platelet Volume 12.7 fL (9.4-12.3); Monocytes Absolute Auto 0.8 X10*3/uL (0.1-1.2); Monocytes Percent Auto 9.7 % (2-11); Neutrophils Percent Auto 47.5 % (45-73); Platelet Count 186 X10*3/uL (160-400); Red Blood Count 3.77 X10*6/uL (4.20-5.50); Red Cell Distribution Width 12.6 % (11.0-16.0); White Blood Count 8.5 X10*3/uL (4.8-10.8)
[2022-02-22 17:40] LABS: Troponin-I High Sensitivity < 3.5 ng/L (<3.5-17.0)
[2022-02-22 18:02] LABS: Lactic Acid 1.9 mmol/L (0.5-2.0)
[2022-02-22 18:07] LABS: Influenza A PCR NEGATIVE (Negative); Influenza B PCR NEGATIVE (Negative); Resp Syncy Virus RNA Qual PCR NEGATIVE (Negative); SARS COV2 PCR INHOUSE NEGATIVE (Negative)
[2022-02-22 18:07] LABS: Anion Gap 10 (12-20); Blood Urea Nitrogen 10 mg/dL (9-16); Calcium 9.3 mg/dL (8.4-10.2); Carbon Dioxide 28 mmol/L (22-29); Chloride 104 mmol/L (96-108); Creatinine Clr Calc Pharmacy 130.3; Estimated Glomerular Filt Rate > 60; Glucose Random 113 mg/dL (60-115); Potassium 4.3 mmol/L (3.3-5.1); Sodium 138 mmol/L (135-145)
[2022-02-22 20:49] VITALS: BP 133/59; PULSE 72; RESP 15; TEMP 36.5; O2SAT 100
[2022-02-22 21:24] LABS: Appearance Urine CLEAR; Color Urine YELLOW; Glucose Urine UA NEG (NEG); Leukocyte Esterase Urine NEG (NEG); Nitrite Urine NEG (NEG); Urine Blood NEG (NEG); Urine Ketones NEG (NEG); Urine Protein NEG (NEG-TRACE)
== END 2022-02-22 22:23 | disposition home or self-care (01) ==
PROVIDERS: Nurse Practitioner Family; Emergency Provider Internal Medicine; PCP Internal Medicine
DX: G40.409 Other generalized epilepsy and epileptic syndromes, not intractable, without status epilepticus (principal); Z20.822 Contact with and (suspected) exposure to COVID-19
CPT/HCPCS: 0241U; 36415; 70450; 71045; 80048; 81003; 82550; 82947; 83605; 83735; 84484; 85025; 93005; 96374; 99284; J2060

== ENCOUNTER 2022-05-08 18:01 | Emergency (ER) | payer OTHER, MEDICAID, SELFPAY ==
[2022-05-08 18:09] VITALS: BP 117/52; PULSE 91; RESP 16; O2SAT 95; BMI 33.0
[2022-05-08] MEDS: Midazolam HCl/PF 2 MG/2 ML VIAL IVPUSH (18:15)
--- NOTE | 2022-05-08 18:15 | PC.NURSE ---
PT APPEARS TO HAVE SEIZURE LIKE ACTIVITY, PT HAVING UNCONTROLLED MOVEMENTS THROUGH OUT HER BODY, TREMORS LIKE, PT ALSO ABLE TO PICK HER HEAD UP AND MOVE IT SIDE TO SIDE DURING THIS ACTIVITY, PT IS NOT INCONTINENT OF URINE AT THIS TIME, DR MENDIOLA CALLED TO BEDSIDE AND VERBAL ORDER TO GIVEN VERSED 2MG IV. SEIZURE PADS IN PLACE AND SUCTION TUBING AVAILABLE IF NEEDED
--- NOTE | 2022-05-08 18:29 | ED.SEIZURE ---
HPI - Seizure General Chief Complaint: Seizure Stated Complaint: seizure Time Seen by Provider: 05/08/22 18:19 Source: patient and family Limitations: altered mental status History of Present Illness HPI Narrative: Patient history of seizure disorder, anxiety and pseudoseizures on Depakote apparently had a seizure while at work was brought by her family while in the triage patient was shaking her head but opening her eyes since leg pseudo-seizure was given Versed 2 mg IV by the other provider at this time patient is sleeping denies any complaints no tongue bite no incontinence when she had seizure no fall Seizure History: Yes Place: Home Related Data Previous Rx's Medication Instructions Recorded naproxen 500 mg tablet 500 mg PO BID PRN pain #20 tabs 08/16/20 cephalexin 500 mg capsule 500 mg PO QID #40 caps 04/08/21 azithromycin 250 mg tablet 250 mg PO DAILY 4 days #4 tabs 04/11/21 (Zithromax) hyoscyamine sulfate 0.125 mg tablet 0.125 mg PO QID PRN dyspepsia #10 06/27/21 tabs albuterol sulfate 90 mcg/actuation 1 inh inhalation QID PRN shortness 11/05/21 aerosol inhaler of breath or wheezing #8.5 grams amoxicillin 875 mg-potassium 1 tab PO BID 10 days #20 tabs 11/05/21 clavulanate 125 mg tablet (Augmentin) codeine 10 mg-guaifenesin 100 mg/5 5 ml PO Q6H PRN cold symptoms #120 11/05/21 mL oral liquid (Guaifenesin AC) mL ondansetron 4 mg disintegrating 4 mg PO Q6H PRN nausea and 01/27/22 tablet vomiting #7 tabs Allergies Allergy/AdvReac Type Severity Reaction Status Date / Time Iodinated Contrast Media Allergy Intermediate Facial Verified 08/21/21 02:05 Swelling clindamycin [CLINDAMYCIN] Allergy Unknown ANAPHYLAXIS Verified 08/21/21 02:05 Review of Systems Review of Systems: Yes all other systems are reviewed and are negative PMFSH Past Medical History Medical History Epilepsy Surgical History Hx of cholecystectomy Social History Social History Alcohol intake: never Patient Tobacco Use Status: Never used Tobacco Use of substances other than those prescribed or required for medical reasons: No Advance Directives: No Advance Directives Information Provided: No Physical Exam Vital Signs: Vital Signs: Last Vital Signs Pulse 83 05/08/22 20:00 Resp 16 05/08/22 20:00 BP 101/49 L 05/08/22 20:00 Pulse Ox 96 05/08/22 20:00 O2 Del Method 05/08/22 20:00 BMI result Body Mass Index 33.0 Appearance: Alert. Oriented X3. No acute distress. Sleepy Eyes: PERRLA, No Nystagmus ENT: Pharynx normal. Oral Mucosa moist no tongue bite Neck: Normal inspection. Neck supple. CVS: Normal heart rate and rhythm. Pulses normal. Respiratory: No respiratory distress. Equal air entry bilateral, no wheezing/rales/rhonchi Abdomen: Soft and nontender. Bowel sounds are present, no mass palpable, no CVA tenderness Skin: Skin warm and dry. Normal skin color. Normal skin turgor. Extremities: No lower extremity edema. No calf tenderness Neuro: Oriented X 3. No motor deficit. No sensory deficit.No cerebellar signs , cranial nerves II-XII intact MDM - Seizure MDM Narrative Medical decision making narrative: 2199 Patient's anxiety/pseudo seizure/epilepsy likely had a pseudo-seizure therapeutic Depakote level. Patient stated is symptomatic in the ER will discharge patient home advised to follow up with neurologist Lab Data Attestation: I reviewed the patient's lab results. Result diagrams: 05/08/22 19:18 05/08/22 19:18 Labs: Lab Results 05/08/22 05/08/22 05/08/22 Range/Units 19:18 19:18 19:18 WBC 7.1 (4.8-10.8) X10*3/uL RBC 3.82 L (4.20-5.50) X10*6/uL Hgb 12.6 (12.0-16.0) g/dl Hct 37.4 (37.0-47.0) % MCV 97.9 (80.0-98.0) fL MCH 33.0 (27.0-33.0) pg MCHC 33.7 (31.0-35.0) g/dl RDW 13.6 (11.0-16.0) % Plt Count 209 (160-400) X10*3/uL MPV 11.3 (9.4-12.3) fL Immature Gran % (Auto) 0.6 H (0.0-0.4) % Neut % (Auto) 50.5 (45-73) % Lymph % (Auto) 36.8 (20-40) % [place] % (Auto) 10.6 (2-11) % Eos % (Auto) 1.1 (0-4) % Baso % (Auto) 0.4 (0-2) % Lymph # (Auto) 2.6 (1.2-4.9) X10*3/uL [place] # (Auto) 0.8 (0.1-1.2) X10*3/uL Eos # (Auto) 0.1 (0.0-0.4) X10*3/uL Baso # (Auto) 0.0 (0.0-0.2) X10*3/uL Abs Immat Gran (auto) 0.04 H (0.00-0.03) X10*3/uL Absolute Neuts (auto) 3.6 (2.0-8.3) x10*3/uL Absolute Nucleated RBC 0.000 (0.0-0.012) X10*3/uL Nucleated RBC % (auto) 0.0 (0.0-0.2) /100WBC Sodium 137 (135-145) mmol/L Potassium 4.8 (3.3-5.1) mmol/L Chloride 102 (96-108) mmol/L Carbon Dioxide 25 (22-29) mmol/L Anion Gap 15 (12-20) BUN 10 (9-16) mg/dL Creatinine 0.71 (0.5-1.4) mg/dL Estim Creat Clear Calc 114.9 Estimated GFR > 60 Random Glucose 154 H (60-115) mg/dL Calcium 9.1 (8.4-10.2) mg/dL Total Bilirubin 0.4 (0.0-1.0) mg/dL AST 51 H (5-31) U/L ALT 49 H (0-31) U/L Alkaline Phosphatase 65 (39-117) U/L Total Protein 7.5 (6.5-8.0) g/dL Albumin 4.1 (3.5-5.0) g/dL Valproic Acid 82.5 (50.0-100.0) mcg/mL COVID-19 (TOÑA) Negative (Negative) COVID-19 Clin Com See Note Discharge Plan Discharge Clinical Impression: Psychogenic nonepileptic seizure Patient Disposition: Home, Self-Care Instructions: Nonepileptic Seizures (ED) Additional Instructions: Continue taking medication as prescribed Follow-up with neurologist Prescriptions: No Action naproxen 500 mg tablet 500 mg PO BID PRN (Reason: pain) Qty: 20 0RF cephalexin 500 mg capsule 500 mg PO QID Qty: 40 0RF azithromycin [Zithromax] 250 mg tablet 250 mg PO DAILY 4 Days Qty: 4 0RF hyoscyamine sulfate 0.125 mg tablet 0.125 mg PO QID PRN (Reason: dyspepsia) Qty: 10 0RF ondansetron 4 mg tablet,disintegrating 4 mg PO Q6H PRN (Reason: nausea and vomiting) Qty: 7 0RF codeine-guaifenesin [Guaifenesin AC] 10-100 mg/5 mL liquid 5 ml PO Q6H PRN (Reason: cold symptoms) Qty: 120 0RF albuterol sulfate 90 mcg/actuation HFA aerosol inhaler 1 inh inhalation QID PRN (Reason: shortness of breath or wheezing) Qty: 8.5 0RF amoxicillin-pot clavulanate [Augmentin] 875-125 mg tablet 1 tab PO BID 10 Days Qty: 20 0RF
[2022-05-08 19:26] LABS: MANUAL DIFF FLAG NO
[2022-05-08 19:37] LABS: Basophils Percent Auto 0.4 % (0-2); Eosinophils Absolute Auto 0.1 X10*3/uL (0.0-0.4); Eosinophils Percent Auto 1.1 % (0-4); Hematocrit 37.4 % (37.0-47.0); Hemoglobin 12.6 g/dl (12.0-16.0); Imm Gran Abs Auto 0.04 X10*3/uL (0.00-0.03); Imm Gran Pct Auto 0.6 % (0.0-0.4); Lymphocytes Absolute Auto 2.6 X10*3/uL (1.2-4.9); Lymphocytes Percent Auto 36.8 % (20-40); Mean Corpuscular HGB Conc 33.7 g/dl (31.0-35.0); Mean Corpuscular Volume 97.9 fL (80.0-98.0); Mean Platelet Volume 11.3 fL (9.4-12.3); Monocytes Absolute Auto 0.8 X10*3/uL (0.1-1.2); Monocytes Percent Auto 10.6 % (2-11); Neutrophils Absolute Auto 3.6 x10*3/uL (2.0-8.3); Neutrophils Percent Auto 50.5 % (45-73); Platelet Count 209 X10*3/uL (160-400); Red Blood Count 3.82 X10*6/uL (4.20-5.50); Red Cell Distribution Width 13.6 % (11.0-16.0); White Blood Count 7.1 X10*3/uL (4.8-10.8)
[2022-05-08 19:42] LABS: COVID-19 Test Negative (Negative)
[2022-05-08 19:48] LABS: Alanine Aminotransferase 49 U/L (0-31); Albumin Level 4.1 g/dL (3.5-5.0); Alkaline Phosphatase 65 U/L (39-117); Anion Gap 15 (12-20); Aspartate Amino Transferase 51 U/L (5-31); Bilirubin Total 0.4 mg/dL (0.0-1.0); Blood Urea Nitrogen 10 mg/dL (9-16); Calcium 9.1 mg/dL (8.4-10.2); Carbon Dioxide 25 mmol/L (22-29); Chloride 102 mmol/L (96-108); Creatinine Clr Calc Pharmacy 114.9; Estimated Glomerular Filt Rate > 60; Glucose Random 154 mg/dL (60-115); Potassium 4.8 mmol/L (3.3-5.1); Sodium 137 mmol/L (135-145); Total Protein 7.5 g/dL (6.5-8.0)
[2022-05-08 20:00] VITALS: BP 101/49; PULSE 83; RESP 16; O2SAT 96
[2022-05-08 20:12] LABS: Valproate 82.5 mcg/mL (50.0-100.0)
== END 2022-05-08 23:38 | disposition home or self-care (01) ==
PROVIDERS: Emergency Provider Internal Medicine; PCP Internal Medicine
DX: R56.9 Unspecified convulsions (principal); F41.9 Anxiety disorder, unspecified; Z20.822 Contact with and (suspected) exposure to COVID-19; Z79.899 Other long term (current) drug therapy
CPT/HCPCS: 80053; 80164; 85025; 87635; 96374; 99284; J2250

== ENCOUNTER 2022-06-08 09:17 | Outpatient (REF) | payer OTHER, MEDICAID, SELFPAY ==
--- NOTE | ~2022-06-08 | XR_ITS ---
EXAMINATION: XR ABDOMEN KUB CLINICAL INDICATION: Pelvic and perineal pain. COMPARISON: CT abdomen and pelvis dated 06/27/2021; pelvic ultrasound dated 02/02/2021. TECHNIQUE: AP view of the abdomen. FINDINGS: The bowel gas pattern is normal with no evidence of ileus or obstruction. No unusual soft tissue calcifications are noted. There are right upper quadrant surgical clips. There are multiple pelvic phleboliths. No acute osseous abnormality is seen. There is sacralization of the L5 bilateral transverse processes. XR/XR KUB IMPRESSION: Unremarkable examination.
== END 2022-06-08 09:18 | disposition home or self-care (01) ==
LOC: HO.XRAY 09:17
PROVIDERS: PCP Internal Medicine; Visit Provider Internal Medicine
DX: R10.2 Pelvic and perineal pain (principal)
CPT/HCPCS: 74018

== ENCOUNTER 2022-09-07 14:46 | Emergency (ER) | payer MEDICAID, SELFPAY ==
[2022-09-07 14:47] VITALS: BP 108/60; BP 109/58; PULSE 82; PULSE 90; RESP 18; TEMP 36.9; O2SAT 94; O2SAT 97; BMI 36.7
[2022-09-07 14:56] LABS: Glucose, Whole Blood 166 mg/dL (60-115)
--- NOTE | 2022-09-07 15:01 | PC.NURSE ---
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 2 mg of versed given by EMS. PT somnolent but awakens on verbal command. Reports epilepsy hx and medication compliance.
--- NOTE | 2022-09-07 16:11 | ECG_ITS ---
Test Reason : seizure Blood Pressure : / mmHG Vent. Rate : 087 BPM Atrial Rate : 087 BPM P-R Int : 136 ms QRS Dur : 084 ms QT Int : 352 ms P-R-T Axes : 061 065 036 degrees QTc Int : 423 ms Normal sinus rhythm Normal ECG When compared with ECG of 22-FEB-2022 17:20, No significant change was found Referred By: Renee Angeles Electronically Signed By:DEVONTE RAMIRES MD
--- OUTSIDE RECORDS SUMMARY | 2022-09-07 16:12 | XMS_ITS | Continuity of Care Document ---
:1990 Author Organization Address [address] [place] [address]- Care Team Providers Name Role Phone Not on Staff, PCP Primary Care Physician Unavailable Encounter [facility] [place] Date(s): 08/05/22 - 08/05/[address] [place] [id number]- Encounter Diagnosis Breakthrough seizure (Final) - 08/05/22 Discharge Disposition: A-D/C Home Attending Physician: Ferdinand Ratliff DO Admitting Physician: Ferdinand Ratliff DO Referring Physician: Not on Staff, Referring MD Allergies, Adverse Reactions, Alerts No Known Medication Allergies Vital Signs Most recent to oldest 1 2 3 [Reference Range]: Oxygen Saturation [94-100 %] 99 % 95 % 100 % (08/05/22 5:25 PM) (08/05/22 2:15 PM) (08/05/22 1:1 5 PM) Pulse Rate [55-90 bpm] 76 bpm 95 bpm 65 bpm (08/05/22 5:25 PM) *H* (08/05/22 1:15 PM) (08/05/22 2:15 PM) Blood Pressure [90-138/55-84 113/71 mm Hg 121/62 mm Hg 116 /59 mm Hg mm Hg] (08/05/22 5:25 PM) (08/05/22 2:15 PM) (08/05/22 1:1 5 PM) Respiratory Rate [16-30 18 br/min 20 br/min 18 br/mi n br/min] (08/05/22 5:25 PM) (08/05/22 2:15 PM) (08/05/22 1:1 5 PM) Temperature [96.8-100.4 DegF] 97.8 DegF 97.7 DegF (08/05/22 5:25 PM) (08/05/22 11:06 AM) Liters per Minute 4 L/min 2 L/min (08/05/22 11:06 AM) (08/05/22 10:42 AM) Mode of Delivery (Oxygen) Room air Room air Room a ir (08/05/22 5:25 PM) (08/05/22 2:15 PM) (08/05/22 1:1 5 PM) Blood pressure sites Arm, right Arm, left (08/05/22 5:25 PM) (08/05/22 2:15 PM) Temperature Route Oral Axillary (08/05/22 5:25 PM) (08/05/22 11:06 AM) Patient Care team information PersonnelName: Not on Staff, PCP
[2022-09-07 16:36] VITALS: BP 109/55; PULSE 81; RESP 18; O2SAT 96
[2022-09-07 16:41] LABS: MANUAL DIFF FLAG NO
[2022-09-07 16:43] LABS: Basophils Percent Auto 0.4 % (0-2); Eosinophils Percent Auto 0.3 % (0-4); Hematocrit 34.7 % (37.0-47.0); Hemoglobin 11.6 g/dl (12.0-16.0); Imm Gran Abs Auto 0.02 X10*3/uL (0.00-0.03); Imm Gran Pct Auto 0.3 % (0.0-0.4); Lymphocytes Absolute Auto 2.8 X10*3/uL (1.2-4.9); Lymphocytes Percent Auto 41.1 % (20-40); Mean Corpuscular HGB Conc 33.4 g/dl (31.0-35.0); Mean Corpuscular Hemoglobin 33.7 pg (27.0-33.0); Mean Corpuscular Volume 100.9 fL (80.0-98.0); Mean Platelet Volume 10.4 fL (9.4-12.3); Monocytes Absolute Auto 0.7 X10*3/uL (0.1-1.2); Monocytes Percent Auto 10.2 % (2-11); Neutrophils Absolute Auto 3.3 x10*3/uL (2.0-8.3); Neutrophils Percent Auto 47.7 % (45-73); Platelet Count 185 X10*3/uL (160-400); Red Blood Count 3.44 X10*6/uL (4.20-5.50); Red Cell Distribution Width 13.3 % (11.0-16.0); White Blood Count 6.9 X10*3/uL (4.8-10.8)
--- NOTE | 2022-09-07 16:56 | ED.SEIZURE ---
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 She states she last saw Dr Miranda within the past 2 months, but no notes identified in the system. She denies any fevers, chills, SOB, chest pain/palpitations, /GI symptoms and denies any missed doses. She states her typical seizures she can hear and is aware of what is happening. Seizure History: Yes Related Data Previous Rx's Medication Instructions Recorded naproxen 500 mg tablet 500 mg PO BID PRN pain #20 tabs 08/16/20 cephalexin 500 mg capsule 500 mg PO QID #40 caps 04/08/21 azithromycin 250 mg tablet 250 mg PO DAILY 4 days #4 tabs 04/11/21 (Zithromax) hyoscyamine sulfate 0.125 mg tablet 0.125 mg PO QID PRN dyspepsia #10 06/27/21 tabs albuterol sulfate 90 mcg/actuation 1 inh inhalation QID PRN shortness 11/05/21 aerosol inhaler of breath or wheezing #8.5 grams amoxicillin 875 mg-potassium 1 tab PO BID 10 days #20 tabs 11/05/21 clavulanate 125 mg tablet (Augmentin) codeine 10 mg-guaifenesin 100 mg/5 5 ml PO Q6H PRN cold symptoms #120 11/05/21 mL oral liquid (Guaifenesin AC) mL ondansetron 4 mg disintegrating 4 mg PO Q6H PRN nausea and 01/27/22 tablet vomiting #7 tabs Allergies Allergy/AdvReac Type Severity Reaction Status Date / Time Iodinated Contrast Media Allergy Intermediate Facial Verified 08/21/21 02:05 Swelling clindamycin [CLINDAMYCIN] Allergy Unknown ANAPHYLAXIS Verified 08/21/21 02:05 Review of Systems Review of Systems: Pertinent positives and negatives as stated in HPI 10 point review of systems is otherwise negative. [facility] Past Medical History Source: nursing notes reviewed Medical History Epilepsy Surgical History Hx of cholecystectomy Social History Social History Alcohol intake: never Patient Tobacco Use Status: Never used Tobacco Advance Directives: No Advance Directives Information Provided: No Physical Exam Vital Signs: Vital Signs: Last Vital Signs Temp 95.7 F L 09/07/22 18:51 Pulse 81 09/07/22 16:36 Resp 18 09/07/22 16:36 BP 109/55 L 09/07/22 16:36 Pulse Ox 96 09/07/22 16:36 O2 Del Method 09/07/22 16:36 BMI result Body Mass Index 36.7 VITAL SIGNS: Reviewed. GENERAL: Well developed, well nourished, in no acute distress. HEAD: Normocephalic/atraumatic EYES: PERRLA, EOMI EARS: Ext canals without abnormality OROPHARYNX: no oral lesions noted, posterior pharynx clear, no injuries to the tongue or inner buccal surface NECK: Supple, no adenopathy LUNGS: Normal breath sounds. No adventitious sounds or accessory muscle use. SpO2<96> CARDIOVASCULAR: Regular rate and rhythm without noted murmurs ABDOMEN: Soft, non-tender, non-distended with bowel sounds. MUSCULOSKELETAL: No tenderness, deformities, or effusions noted on gross inspection. EXTREMITIES: No cyanosis, clubbing or edema. SKIN: Inspection of the skin reveals no rashes, no abrasions or lacerations NEUROLOGIC: Alert/Drowsy and oriented x 4. Strength and sensation to light touch were grossly intact x 4. Course Course Course Narrative: 31-year-old female with history and clinical presentation consistent with psychogenic nonepileptic seizure, on clinical exam there are no noted injuries to any of the extremities and no intraoral injuries noted. Patient did receive Versed and route and suspect that this is contributing to the perceived drowsiness. Otherwise patient is nonfocal, afebrile. Will obtain basic lab work and unable to locate notes from neurology regarding this patient. Review of all investigations otherwise negative for acute findings to better explain patient's onset of seizure-like activity. Patient and family member at bedside were informed of all results and findings and discharged home in stable condition with instructions to follow-up with Dr. Ruben tomorrow. MDM - Seizure Lab Data Result diagrams: 09/07/22 16:35 09/07/22 16:35 Labs: Lab Results 09/07/22 09/07/22 09/07/22 Range/Units 14:52 16:35 16:35 WBC 6.9 (4.8-10.8) X10*3/uL RBC 3.44 L (4.20-5.50) X10*6/uL Hgb 11.6 L (12.0-16.0) g/dl Hct 34.7 L (37.0-47.0) % MCV 100.9 H (80.0-98.0) fL MCH 33.7 H (27.0-33.0) pg MCHC 33.4 (31.0-35.0) g/dl RDW 13.3 (11.0-16.0) % Plt Count 185 (160-400) X10*3/uL MPV 10.4 (9.4-12.3) fL Immature Gran % (Auto) 0.3 (0.0-0.4) % Neut % (Auto) 47.7 (45-73) % Lymph % (Auto) 41.1 H (20-40) % [place] % (Auto) 10.2 (2-11) % Eos % (Auto) 0.3 (0-4) % Baso % (Auto) 0.4 (0-2) % Lymph # (Auto) 2.8 (1.2-4.9) X10*3/uL [place] # (Auto) 0.7 (0.1-1.2) X10*3/uL Eos # (Auto) 0.0 (0.0-0.4) X10*3/uL Baso # (Auto) 0.0 (0.0-0.2) X10*3/uL Abs Immat Gran (auto) 0.02 (0.00-0.03) X10*3/uL Absolute Neuts (auto) 3.3 (2.0-8.3) x10*3/uL Absolute Nucleated RBC 0.000 (0.0-0.012) X10*3/uL Nucleated RBC % (auto) 0.0 (0.0-0.2) /100WBC Sodium 141 (135-145) mmol/L Potassium 4.3 (3.3-5.1) mmol/L Chloride 103 (96-108) mmol/L Carbon Dioxide 27 (22-29) mmol/L Anion Gap 15 (12-20) BUN 15 (9-16) mg/dL Creatinine 0.61 (0.5-1.4) mg/dL Estim Creat Clear Calc 130.8 Estimated GFR > 60 POC Glucose 166 H (60-115) mg/dL Random Glucose 159 H (60-115) mg/dL Calcium 8.8 (8.4-10.2) mg/dL Total Bilirubin 0.5 (0.0-1.0) mg/dL AST 73 H (5-31) U/L ALT 58 H (0-31) U/L Alkaline Phosphatase 63 (39-117) U/L Total Protein 7.3 (6.5-8.0) g/dL Albumin 3.9 (3.5-5.0) g/dL Urine Color Urine Appearance Urine pH (5.0-9.0) Ur Specific [place] (1.005-1.025) Urine Protein (Neg-Trace) mg/dL Urine Glucose (UA) (Negative) mg/dL Urine Ketones (Negative) mg/dL Urine Blood (Negative) Urine Nitrite (Negative) Ur Leukocyte Esterase (Negative) Urine Test (NEGATIVE) 09/07/22 09/07/22 Range/Units 17:03 17:03 WBC (4.8-10.8) X10*3/uL RBC (4.20-5.50) X10*6/uL Hgb (12.0-16.0) g/dl Hct (37.0-47.0) % MCV (80.0-98.0) fL MCH (27.0-33.0) pg MCHC (31.0-35.0) g/dl RDW (11.0-16.0) % Plt Count (160-400) X10*3/uL MPV (9.4-12.3) fL Immature Gran % (Auto) (0.0-0.4) % Neut % (Auto) (45-73) % Lymph % (Auto) (20-40) % [place] % (Auto) (2-11) % Eos % (Auto) (0-4) % Baso % (Auto) (0-2) % Lymph # (Auto) (1.2-4.9) X10*3/uL [place] # (Auto) (0.1-1.2) X10*3/uL Eos # (Auto) (0.0-0.4) X10*3/uL Baso # (Auto) (0.0-0.2) X10*3/uL Abs Immat Gran (auto) (0.00-0.03) X10*3/uL Absolute Neuts (auto) (2.0-8.3) x10*3/uL Absolute Nucleated RBC (0.0-0.012) X10*3/uL Nucleated RBC % (auto) (0.0-0.2) /100WBC Sodium (135-145) mmol/L Potassium (3.3-5.1) mmol/L Chloride (96-108) mmol/L Carbon Dioxide (22-29) mmol/L Anion Gap (12-20) BUN (9-16) mg/dL Creatinine (0.5-1.4) mg/dL Estim Creat Clear Calc Estimated GFR POC Glucose (60-115) mg/dL Random Glucose (60-115) mg/dL Calcium (8.4-10.2) mg/dL Total Bilirubin (0.0-1.0) mg/dL AST (5-31) U/L ALT (0-31) U/L Alkaline Phosphatase (39-117) U/L Total Protein (6.5-8.0) g/dL Albumin (3.5-5.0) g/dL Urine Color Yellow Urine Appearance Clear Urine pH 8.5 (5.0-9.0) Ur Specific [place] 1.020 (1.005-1.025) Urine Protein Negative (Neg-Trace) mg/dL Urine Glucose (UA) Negative (Negative) mg/dL Urine Ketones Trace (Negative) mg/dL Urine Blood Negative (Negative) Urine Nitrite Negative (Negative) Ur Leukocyte Esterase Negative (Negative) Urine Test NEGATIVE (NEGATIVE) ECG Data Attestation: I personally reviewed and interpreted this ECG as follows: Prior ECG tracings: available for review Interpretation: NSR, HR-87, no STEMI, [place]/QRS/QTC is within normal limits. Discharge Plan Discharge Clinical Impression: Psychogenic nonepileptic seizure Patient Disposition: Home, Self-Care Instructions: Nonepileptic Seizures (ED) Additional Instructions: 1. Reanudar todos los medicamentos caseros seg?n lo prescrito. 2. Llame a la oficina del Dr. Miranda a primera hora de la ma?roula para programar trent lesley para trent reevaluaci?n y un manejo ambulatorio adicional. Regrese a la yadiel de emergencias si los s?ntomas empeoran. Prescriptions: No Action naproxen 500 mg tablet 500 mg PO BID PRN (Reason: pain) Qty: 20 0RF cephalexin 500 mg capsule 500 mg PO QID Qty: 40 0RF azithromycin [Zithromax] 250 mg tablet 250 mg PO DAILY 4 Days Qty: 4 0RF hyoscyamine sulfate 0.125 mg tablet 0.125 mg PO QID PRN (Reason: dyspepsia) Qty: 10 0RF ondansetron 4 mg tablet,disintegrating 4 mg PO Q6H PRN (Reason: nausea and vomiting) Qty: 7 0RF codeine-guaifenesin [Guaifenesin AC] 10-100 mg/5 mL liquid 5 ml PO Q6H PRN (Reason: cold symptoms) Qty: 120 0RF albuterol sulfate 90 mcg/actuation HFA aerosol inhaler 1 inh inhalation QID PRN (Reason: shortness of breath or wheezing) Qty: 8.5 0RF amoxicillin-pot clavulanate [Augmentin] 875-125 mg tablet 1 tab PO BID 10 Days Qty: 20 0RF Referrals: Kath Venegas MD [Primary Care Provider] - Miranda Miranda MD [Physician] - Print Language: Kyrgyz
[2022-09-07 17:06] LABS: Alanine Aminotransferase 58 U/L (0-31); Albumin Level 3.9 g/dL (3.5-5.0); Alkaline Phosphatase 63 U/L (39-117); Anion Gap 15 (12-20); Aspartate Amino Transferase 73 U/L (5-31); Bilirubin Total 0.5 mg/dL (0.0-1.0); Blood Urea Nitrogen 15 mg/dL (9-16); Calcium 8.8 mg/dL (8.4-10.2); Carbon Dioxide 27 mmol/L (22-29); Chloride 103 mmol/L (96-108); Creatinine Clr Calc Pharmacy 130.8; Estimated Glomerular Filt Rate > 60; Glucose Random 159 mg/dL (60-115); Potassium 4.3 mmol/L (3.3-5.1); Sodium 141 mmol/L (135-145); Total Protein 7.3 g/dL (6.5-8.0)
[2022-09-07 17:15] LABS: Appearance Urine Clear; Color Urine Yellow; Glucose Urine UA Negative (Negative); Leukocyte Esterase Urine Negative (Negative); Nitrite Urine Negative (Negative); PH 8.5 (5.0-9.0); Urine Blood Negative (Negative); Urine Ketones Trace mg/dL (Negative); Urine Protein Negative (Neg-Trace)
[2022-09-07 17:17] LABS: UPreg QC Valid YES; Urine Pregnancy NEGATIVE (NEGATIVE)
[2022-09-07 18:51] VITALS: TEMP 35.4
== END 2022-09-07 19:40 | disposition home or self-care (01) ==
PROVIDERS: Emergency Provider Student in an Organized Health Care Education/Training Program; PCP Internal Medicine
DX: F44.5 Conversion disorder with seizures or convulsions (principal)
CPT/HCPCS: 36415; 80053; 81003; 81025; 82947; 85025; 93005; 99283; 99284

== ENCOUNTER 2022-09-12 16:17 | Emergency (ER) | payer MEDICAID, SELFPAY ==
--- NOTE | ~2022-09-12 | CT_ITS ---
EXAMINATION: CT HEAD WITHOUT CONTRAST CLINICAL INFORMATION: Seizure, head strike. COMPARISON: CT head 02/22/2022. TECHNIQUE: Contiguous axial imaging was performed from the skull base to vertex without intravenous administration of contrast. This CT examination was performed using dose optimization techniques as appropriate, variously including the following: *Automated exposure control *Adjustment of mA and/or kV according to patient size (this includes techniques or standardized protocols for targeted exams where dose is matched to indication/reason for exam; i.e. extremities or head) *Use of iterative reconstruction technique DLP: 637 mGy-cm FINDINGS: There is no evidence of acute intracranial hemorrhage or edematous territorial infarction. There is no abnormal attenuation within the brain parenchyma. Graves-white matter differentiation is preserved. The ventricles are normal in size and configuration. No evidence for obstructive hydrocephalus. No abnormal mass effect or midline shift. No extra-axial fluid collections. No acute soft tissue or osseous abnormalities. The mastoid air cells and paranasal sinuses are clear. CT/CT head/brain wo IV con IMPRESSION: No evidence of acute intracranial hemorrhage or edematous territorial infarction.
[2022-09-12 16:37] VITALS: BP 122/57; BP 124/77; PULSE 84; PULSE 86; RESP 18; TEMP 36.9; O2SAT 100; BMI 36.5
[2022-09-12 16:45] LABS: Glucose, Whole Blood 159 mg/dL (60-115)
--- NOTE | 2022-09-12 16:49 | PC.NURSE ---
Per EMS PT was at work and had an unwitnessed seizure, was found by coworkers. PT reports having aura before falling from chair, reports head strike. Was seen last week for similar situation. PT states having life stressors at home.VSS.
--- NOTE | 2022-09-12 16:59 | ED.SEIZURE ---
HPI - Seizure General Chief Complaint: Seizure Stated Complaint: pseudosz Time Seen by Provider: 09/12/22 16:48 Source: patient and EMS Mode of arrival: EMS Limitations: altered mental status History of Present Illness HPI Narrative: 31 yo female with history of psychogenic nonepileptic seizures who presents to the ER for evaluation of an unwitnessed seizure while at work today. She reportedly fell and struck her head.She reports taking Depakote 500 mg BID for her seizures and doesn't recall when was her last appointment with neurology neither when is her next appointment. She arrived to the ER having fasciculations of her eyes and eyes watering. She is hyperventilating and anxious. History is limited. MD complaint: seizure Onset (ago): minute(s) Witnessed: No Trauma: Yes Seizure History: Yes Place: Work Possible Precipitating Event: head injury Treatments prior to arrival: none Related Data Previous Rx's Medication Instructions Recorded naproxen 500 mg tablet 500 mg PO BID PRN pain #20 tabs 08/16/20 cephalexin 500 mg capsule 500 mg PO QID #40 caps 04/08/21 azithromycin 250 mg tablet 250 mg PO DAILY 4 days #4 tabs 04/11/21 (Zithromax) hyoscyamine sulfate 0.125 mg tablet 0.125 mg PO QID PRN dyspepsia #10 06/27/21 tabs albuterol sulfate 90 mcg/actuation 1 inh inhalation QID PRN shortness 11/05/21 aerosol inhaler of breath or wheezing #8.5 grams amoxicillin 875 mg-potassium 1 tab PO BID 10 days #20 tabs 11/05/21 clavulanate 125 mg tablet (Augmentin) codeine 10 mg-guaifenesin 100 mg/5 5 ml PO Q6H PRN cold symptoms #120 11/05/21 mL oral liquid (Guaifenesin AC) mL ondansetron 4 mg disintegrating 4 mg PO Q6H PRN nausea and 01/27/22 tablet vomiting #7 tabs Allergies Allergy/AdvReac Type Severity Reaction Status Date / Time Iodinated Contrast Media Allergy Intermediate Facial Verified 08/21/21 02:05 Swelling clindamycin [CLINDAMYCIN] Allergy Unknown ANAPHYLAXIS Verified 08/21/21 02:05 Review of Systems Review of Systems: Yes Unobtainable due to mental status PMFSH Past Medical History Attestation statement: The following information was validated with the patient. Medical History Epilepsy Surgical History Hx of cholecystectomy Social History Social History Alcohol intake: never Patient Tobacco Use Status: Never used Tobacco Advance Directives: No Advance Directives Information Provided: No Physical Exam Vital Signs: Vital Signs: Last Vital Signs Temp 98.4 F 09/12/22 16:37 Pulse 86 09/12/22 16:37 Resp 18 09/12/22 16:37 BP 122/57 L 09/12/22 16:37 Pulse Ox 100 09/12/22 16:37 O2 Del Method 09/12/22 16:37 BMI result Body Mass Index 36.5 Appearance: Altered Mental Status Oriented X3.Anxious.No acute distress. Eyes: Pupils equal, round and reactive to light. ENT: Pharynx normal. Neck: Normal inspection. Neck supple. CVS: Normal heart rate and rhythm. Pulses normal. Respiratory: No respiratory distress. Breath sounds normal. Abdomen: Soft and nontender. +BS x4 Skin: Skin warm and dry. Normal skin color. Normal skin turgor. No rashes. Extremities: No lower extremity edema. Neuro: Awake and alert, fasciculations of her eyes, moving all extremities and able to follow commands. Strength is equal and symmetrical throughout. Cranial nerves 2-12 intact. Course Course Course Narrative: 31-year-old female with history of psychogenic nonepileptic seizures presents to the ER for evaluation of an unwitnessed seizure at work today. Reported an aura beforehand and falling from chair hitting her head. She arrives to the ER with her eyes fluttering and watering. She is awake and alert, negative drop-arm test and is able to the answer questions and follow commands during this episode. This is consistent with a nonepileptic event. She was given 2 mg of Versed for anxiety. Labs and CT head are ordered. Reevaluation(s) Reevaluation #1: Lab workup was unremarkable. She has mild transaminitis which is chronic and unchanged. Her Depakote level is therapeutic. CT head is still pending. Reevaluation #2: CT head is normal. Patient slightly tired and lethargic which her sister reports is her baseline after an event. She is awake and alert. Spoke with patient's mother - patient does not have a counselor/therapist. encouraged to reach out to [facility] and outpatient services. Comfortable with d/c home. Medications Administered Discontinued Medications Generic Name Dose Route Start Last Admin Trade Name [place] PRN Reason Stop Dose Admin Midazolam HCl 2 mg 09/12/22 17:42 09/12/22 18:37 Midazolam Hcl/Pf 2 Mg/2 Ml Vial IVPUSH 09/12/22 17:43 2 mg ONCE ONE Administration MDM - Seizure MDM Narrative Medical decision making narrative: 31 yo female with history of psychogenic nonepileptic seizures who presents to the ER for evaluation of an unwitnessed seizure while at work today and reportedly fell and struck her head.She reports taking Depakote 500 mg BID for her seizure. Concern for psychogenic seizure vs conversion syndrome. Low suspicion for epileptic seizures Plan: CT head, Labs, Versed Lab Data Result diagrams: 09/12/22 18:14 09/12/22 18:14 Labs: Lab Results 09/12/22 09/12/22 09/12/22 Range/Units 16:41 18:14 18:14 WBC 9.0 (4.8-10.8) X10*3/uL RBC 3.66 L (4.20-5.50) X10*6/uL Hgb 12.2 (12.0-16.0) g/dl Hct 36.6 L (37.0-47.0) % MCV 100.0 H (80.0-98.0) fL MCH 33.3 H (27.0-33.0) pg MCHC 33.3 (31.0-35.0) g/dl RDW 13.2 (11.0-16.0) % Plt Count 268 D (160-400) X10*3/uL MPV 10.5 (9.4-12.3) fL Immature Gran % (Auto) 1.1 H (0.0-0.4) % Neut % (Auto) 55.1 (45-73) % Lymph % (Auto) 35.0 (20-40) % [place] % (Auto) 8.2 (2-11) % Eos % (Auto) 0.3 (0-4) % Baso % (Auto) 0.3 (0-2) % Lymph # (Auto) 3.2 (1.2-4.9) X10*3/uL [place] # (Auto) 0.7 (0.1-1.2) X10*3/uL Eos # (Auto) 0.0 (0.0-0.4) X10*3/uL Baso # (Auto) 0.0 (0.0-0.2) X10*3/uL Abs Immat Gran (auto) 0.10 H (0.00-0.03) X10*3/uL Absolute Neuts (auto) 5.0 (2.0-8.3) x10*3/uL Absolute Nucleated RBC 0.000 (0.0-0.012) X10*3/uL Nucleated RBC % (auto) 0.0 (0.0-0.2) /100WBC Sodium 138 (135-145) mmol/L Potassium 4.6 (3.3-5.1) mmol/L Chloride 101 (96-108) mmol/L Carbon Dioxide 25 (22-29) mmol/L Anion Gap 17 (12-20) BUN 14 (9-16) mg/dL Creatinine 0.62 (0.5-1.4) mg/dL Estim Creat Clear Calc 128.3 Estimated GFR > 60 POC Glucose 159 H (60-115) mg/dL Random Glucose 170 H (60-115) mg/dL Calcium 9.7 D (8.4-10.2) mg/dL Magnesium 1.7 (1.6-2.6) mg/dL Total Bilirubin 0.3 (0.0-1.0) mg/dL Direct Bilirubin < 0.2 (0.0-0.5) mg/dL AST 65 H (5-31) U/L ALT 59 H (0-31) U/L Alkaline Phosphatase 75 (39-117) U/L Total Creatine Kinase 69 (26-140) U/L Total Protein 8.0 (6.5-8.0) g/dL Albumin 4.1 (3.5-5.0) g/dL Urine Opiates Screen (Not Detect) Urine Fentanyl Screen (Not Detect) Ur Barbiturates Screen (Not Detect) Valproic Acid (50.0-100.0) mcg/mL Ur Phencyclidine Scrn (Not Detect) Ur Amphetamines Screen (Not Detect) U Benzodiazepines Scrn (Not Detect) Urine Cocaine Screen (Not Detect) U Marijuana (THC) Screen (Not Detect) Ethyl Alcohol < 10 mg/dL 09/12/22 09/12/22 Range/Units 18:14 18:14 WBC (4.8-10.8) X10*3/uL RBC (4.20-5.50) X10*6/uL Hgb (12.0-16.0) g/dl Hct (37.0-47.0) % MCV (80.0-98.0) fL MCH (27.0-33.0) pg MCHC (31.0-35.0) g/dl RDW (11.0-16.0) % Plt Count (160-400) X10*3/uL MPV (9.4-12.3) fL Immature Gran % (Auto) (0.0-0.4) % Neut % (Auto) (45-73) % Lymph % (Auto) (20-40) % [place] % (Auto) (2-11) % Eos % (Auto) (0-4) % Baso % (Auto) (0-2) % Lymph # (Auto) (1.2-4.9) X10*3/uL [place] # (Auto) (0.1-1.2) X10*3/uL Eos # (Auto) (0.0-0.4) X10*3/uL Baso # (Auto) (0.0-0.2) X10*3/uL Abs Immat Gran (auto) (0.00-0.03) X10*3/uL Absolute Neuts (auto) (2.0-8.3) x10*3/uL Absolute Nucleated RBC (0.0-0.012) X10*3/uL Nucleated RBC % (auto) (0.0-0.2) /100WBC Sodium (135-145) mmol/L Potassium (3.3-5.1) mmol/L Chloride (96-108) mmol/L Carbon Dioxide (22-29) mmol/L Anion Gap (12-20) BUN (9-16) mg/dL Creatinine (0.5-1.4) mg/dL Estim Creat Clear Calc Estimated GFR POC Glucose (60-115) mg/dL Random Glucose (60-115) mg/dL Calcium (8.4-10.2) mg/dL Magnesium (1.6-2.6) mg/dL Total Bilirubin (0.0-1.0) mg/dL Direct Bilirubin (0.0-0.5) mg/dL AST (5-31) U/L ALT (0-31) U/L Alkaline Phosphatase (39-117) U/L Total Creatine Kinase (26-140) U/L Total Protein (6.5-8.0) g/dL Albumin (3.5-5.0) g/dL Urine Opiates Screen Not Detected (Not Detect) Urine Fentanyl Screen Not Detected (Not Detect) Ur Barbiturates Screen Not Detected (Not Detect) Valproic Acid 91.4 (50.0-100.0) mcg/mL Ur Phencyclidine Scrn Not Detected (Not Detect) Ur Amphetamines Screen Not Detected (Not Detect) U Benzodiazepines Scrn Not Detected (Not Detect) Urine Cocaine Screen Not Detected (Not Detect) U Marijuana (THC) Screen Not Detected (Not Detect) Ethyl Alcohol mg/dL Discharge Plan Discharge Clinical Impression: Psychogenic nonepileptic seizure Patient Disposition: Home, Self-Care Instructions: Conversion Disorder (ED) Additional Instructions: Your lab workup today was unremarkable. Your head CT was normal. Nonepileptic, psychogenic seizures at thought to be induced by stress. Recommend following up with a counselor or therapist. Continue your Depakote and follow-up with your neurologist. If you develop new or worsening symptoms call 911 or come back to the ER for further evaluation. Prescriptions: No Action naproxen 500 mg tablet 500 mg PO BID PRN (Reason: pain) Qty: 20 0RF cephalexin 500 mg capsule 500 mg PO QID Qty: 40 0RF azithromycin [Zithromax] 250 mg tablet 250 mg PO DAILY 4 Days Qty: 4 0RF hyoscyamine sulfate 0.125 mg tablet 0.125 mg PO QID PRN (Reason: dyspepsia) Qty: 10 0RF ondansetron 4 mg tablet,disintegrating 4 mg PO Q6H PRN (Reason: nausea and vomiting) Qty: 7 0RF codeine-guaifenesin [Guaifenesin AC] 10-100 mg/5 mL liquid 5 ml PO Q6H PRN (Reason: cold symptoms) Qty: 120 0RF albuterol sulfate 90 mcg/actuation HFA aerosol inhaler 1 inh inhalation QID PRN (Reason: shortness of breath or wheezing) Qty: 8.5 0RF amoxicillin-pot clavulanate [Augmentin] 875-125 mg tablet 1 tab PO BID 10 Days Qty: 20 0RF Referrals: [facility] [place] [facility] [Provider Group] Stand Alone Forms: Work/School Release
[2022-09-12 18:21] LABS: MANUAL DIFF FLAG NO
[2022-09-12 18:22] LABS: Basophils Percent Auto 0.3 % (0-2); Eosinophils Percent Auto 0.3 % (0-4); Hematocrit 36.6 % (37.0-47.0); Hemoglobin 12.2 g/dl (12.0-16.0); Imm Gran Pct Auto 1.1 % (0.0-0.4); Lymphocytes Absolute Auto 3.2 X10*3/uL (1.2-4.9); Mean Corpuscular HGB Conc 33.3 g/dl (31.0-35.0); Mean Corpuscular Hemoglobin 33.3 pg (27.0-33.0); Mean Platelet Volume 10.5 fL (9.4-12.3); Monocytes Absolute Auto 0.7 X10*3/uL (0.1-1.2); Monocytes Percent Auto 8.2 % (2-11); Neutrophils Percent Auto 55.1 % (45-73); Platelet Count 268 X10*3/uL (160-400); Red Blood Count 3.66 X10*6/uL (4.20-5.50); Red Cell Distribution Width 13.2 % (11.0-16.0)
[2022-09-12] MEDS: Midazolam HCl/PF 2 MG/2 ML VIAL IVPUSH (18:37)
[2022-09-12 18:41] LABS: Amphetamine Screen Urine Not Detected (Not Detect); Barbiturates, Urine Not Detected (Not Detect); Benzodiazepines Screen Urine Not Detected (Not Detect); Cannabinoid Screen Urine Not Detected (Not Detect); Cocaine Screen Urine Not Detected (Not Detect); Fentanyl, urine Not Detected (Not Detect); Opiate Screen Urine Not Detected (Not Detect); Phencyclidine Screen Urine Not Detected (Not Detect)
[2022-09-12 18:52] LABS: Alanine Aminotransferase 59 U/L (0-31); Albumin Level 4.1 g/dL (3.5-5.0); Alkaline Phosphatase 75 U/L (39-117); Anion Gap 17 (12-20); Aspartate Amino Transferase 65 U/L (5-31); Bilirubin Direct < 0.2 mg/dL (0.0-0.5); Bilirubin Total 0.3 mg/dL (0.0-1.0); Blood Urea Nitrogen 14 mg/dL (9-16); Calcium 9.7 mg/dL (8.4-10.2); Carbon Dioxide 25 mmol/L (22-29); Chloride 101 mmol/L (96-108); Creatinine Clr Calc Pharmacy 128.3; Estimated Glomerular Filt Rate > 60; Ethanol < 10 mg/dL; Glucose Random 170 mg/dL (60-115); Magnesium 1.7 mg/dL (1.6-2.6); Potassium 4.6 mmol/L (3.3-5.1); Sodium 138 mmol/L (135-145)
[2022-09-12 18:54] LABS: Valproate 91.4 mcg/mL (50.0-100.0)
== END 2022-09-12 20:36 | disposition home or self-care (01) ==
PROVIDERS: Physician Assistant; Emergency Provider Internal Medicine
DX: R56.9 Unspecified convulsions (principal); R51.9 Headache, unspecified; Z79.899 Other long term (current) drug therapy
CPT/HCPCS: 36415; 70450; 80048; 80076; 80164; 80307; 82077; 82550; 82947; 83735; 85025; 96374; 99282; 99284; J2250

== ENCOUNTER 2022-09-29 14:27 | Emergency (ER) | payer MEDICAID, SELFPAY ==
--- NOTE | ~2022-09-29 | XR_ITS ---
EXAMINATION: XR ANKLE, LEFT CLINICAL INFORMATION: Atraumatic medial ankle pain COMPARISON: None TECHNIQUE: AP, lateral, and mortise views of the left ankle. FINDINGS: The bones and soft tissues are normal. No fracture. Alignment is anatomic. Joint spaces are maintained. Moderate plantar calcaneal enthesophyte. Mild Achilles insertional enthesopathy. No joint effusion. XR/XR ankle LT min 3V IMPRESSION: * No acute fracture or dislocation. * Moderate plantar calcaneal enthesophyte.
[2022-09-29 15:42] VITALS: BP 129/63; PULSE 96; RESP 18; TEMP 36.4; O2SAT 99; BMI 36.3
--- NOTE | 2022-09-29 15:42 | ED_ITS ---
HPI - General Adult General Chief complaint: Upper Respiratory Symptoms <PAT Ching - Last Filed: 09/29/22 15:44> Stated complaint: Flu Symptoms <PAT Ching - Last Filed: 09/29/22 15:44> Time Seen by Provider: 09/29/22 17:30 <PAT Ching - Last Filed: 09/29/22 15:44> Source: patient <PAT Ching Last Filed: 09/29/22 15:44> Mode of arrival: ambulatory <PAT Ching Last Filed: 09/29/22 15:44> Limitations: no limitations <PAT Ching Last Filed: 09/29/22 15:44> History of Present Illness HPI narrative: 32yoF c PMHx of psychogenic nonepileptic seizures who is presenting to the ER with complaints of the, malaise, chills, body aches, intermittent headaches, nasal congestion/rhinorrhea, sore throat an a dry cough over the past 2 days worse today. Daughter was recently treated for bacterial conjunctivitis and pharyngitis over the past few days as well here at [facility] ER. She also reports that she has atraumatic left medial ankle pain has been intermittent over the past few months and today she is having this pain. She denies any measured fevers, dizziness, neck pain/stiffness, ear pain, trouble swallowing or breathing, changes in her voice, sputum production, chest pain or shortness of breath, dyspnea on exertion, orthopnea, palpitations, paresthesias, nausea/vomiting/diarrhea or constipation, black or bloody stools, abdominal pain, flank pain, dysuria, hematuria, abnormal vaginal discharge, rashes, lower extremity edema or calf tenderness, recent travel, hypercoagulation disorder, history of DVT or PE, any estrogen usage, history of cancer or recent immobilization, recent travel on a long plane train or car ride or any other symptoms complaints or concerns at this time. <PAT Ramirez - Last Filed: 09/29/22 18:49> MD complaint: URI complaints and left ankle pain <PAT Ramirez Last Filed: 09/29/22 18:49> Onset (ago): day(s) (2) <PAT Ramirez - Last Filed: 09/29/22 18:49> Related Data Home medications: Previous Rx's Medication Instructions Recorded naproxen 500 mg tablet 500 mg PO BID PRN pain #20 tabs 08/16/20 cephalexin 500 mg capsule 500 mg PO QID #40 caps 04/08/21 azithromycin 250 mg tablet 250 mg PO DAILY 4 days #4 tabs 04/11/21 (Zithromax) hyoscyamine sulfate 0.125 mg tablet 0.125 mg PO QID PRN dyspepsia #10 06/27/21 tabs albuterol sulfate 90 mcg/actuation 1 inh inhalation QID PRN shortness 11/05/21 aerosol inhaler of breath or wheezing #8.5 grams amoxicillin 875 mg-potassium 1 tab PO BID 10 days #20 tabs 11/05/21 clavulanate 125 mg tablet (Augmentin) codeine 10 mg-guaifenesin 100 mg/5 5 ml PO Q6H PRN cold symptoms #120 11/05/21 mL oral liquid (Guaifenesin AC) mL ondansetron 4 mg disintegrating 4 mg PO Q6H PRN nausea and 01/27/22 tablet vomiting #7 tabs cephalexin 500 mg capsule 500 mg PO Q6H 7 days #28 caps 09/29/22 naproxen 500 mg tablet 500 mg PO BID PRN pain #14 tabs 09/29/22 <PAT Ching - Last Filed: 09/29/22 15:44> Allergies/adverse reactions: Allergies Allergy/AdvReac Type Severity Reaction Status Date / Time Iodinated Contrast Media Allergy Intermediate Facial Verified 08/21/21 02:05 Swelling clindamycin [CLINDAMYCIN] Allergy Unknown ANAPHYLAXIS Verified 08/21/21 02:05 <PAT Ching - Last Filed: 09/29/22 15:44> Review of Systems Review of Systems: Constitutional : + chills/fatigue/malaise, No Weight loss, No Night Sweats ENT/Mouth : + sore throat/nasal congestion/rhinorrhea, No Hearing loss, No Ear Pain, No Sinus Pain, No Hoarseness, No Swallowing Difficulty Eyes: No Eye Pain, No Swelling, No Redness, No Foreign Body, No Discharge, No Vision Changes Cardiovascular : No Chest Pain, No SOB, No Dyspnea on Exertion, No Orthopnea, No Edema, No Palpitations Respiratory : + Cough, No Sputum, No Wheezing, No Smoke Exposure, No Dyspnea Gastrointestinal : No Nausea, No Vomiting, No Diarrhea, No Constipation, No abdominal Pain, No Hematochezia, No Melena Genitourinary : no irregular bleeding, No Dysuria, No Urinary Frequency, No Hematuria, No Urinary Incontinence, No Urgency, No Flank Pain, No Urinary Flow Changes, No Hesitancy Musculoskeletal : + left ankle joint pain, + Myalgias, No Joint Swelling Skin : No Skin Lesions, No rash Neuro : No Weakness, No Numbness, No Paresthesias, No Loss of Consciousness, No Dizziness, No Headache Psych : No Anxiety/Panic, No Depression, No SI/HI/AH/VH, No Social Issues, Heme/Lymph: No Bruising, No Bleeding,No Lymphadenopathy Endocrine : No Polyuria, No Polydipsia, No Temperature Intolerance <PAT Ramirez - Last Filed: 09/29/22 18:49> Yes all other systems are reviewed and are negative <PAT Ramirez - Last Filed: 09/29/22 18:49> FOR[facility]LY [facility] Past Medical History Attestation statement: The following information was validated with the patient. <PAT Ramirez - Last Filed: 09/29/22 18:49> Source: old records reviewed and nursing notes reviewed <PAT Ramirez - Last Filed: 09/29/22 18:49> Medical History: Medical History Epilepsy <PAT Ching - Last Filed: 09/29/22 15:44> Surgical History: Surgical History Hx of cholecystectomy <PAT Ching - Last Filed: 09/29/22 15:44> Social History Social History: Social History Alcohol intake: never Patient Tobacco Use Status: Never used Tobacco Advance Directives: No Advance Directives Information Provided: No <PAT Ching - Last Filed: 09/29/22 15:44> Physical Exam ED Vital Signs: Vital Signs - 24 hr 09/29/22 15:42 Temperature 97.5 F Pulse Rate 96 Respiratory Rate 18 Blood Pressure 129/63 Pulse Oximetry 99 Oxygen Delivery Method Room Air BMI result Body Mass Index 36.3 <PAT Ching - Last Filed: 09/29/22 15:44> Vital Signs - 24 hr 09/29/22 15:42 Temperature 97.5 F Pulse Rate 96 Respiratory Rate 18 Blood Pressure 129/63 Pulse Oximetry 99 Oxygen Delivery Method Room Air BMI result Body Mass Index 36.3 vital signs have been reviewed as normal and appeared to be correct. Blood pressure normal. Heart rate normal. Respiration rate normal. Temperature normal. Oxygen saturation normal. <PAT Ramirez - Last Filed: 09/29/22 18:49> Appearance: Alert. Oriented X3. No acute distress. Head: Normal external exam. Normocephalic. Atraumatic. Eyes: PERRLA. EOMI. Conjunctiva and sclera normal. Eyelids normal. ENT: EAC normal. TM's Normal. Posterior pharynx/tonsils mildly erythematous with some scattered exudate bilaterally noted. Uvula midline. Moist mucous membranes. No lesions/ulcerations or masses noted on the tongue. Normal voice. No trismus noted. No drooling noted. No muffled voice noted. Neck: Normal inspection. Neck supple. FROM. No adenopathy. Thyroid Normal. No tracheal deviation noted. No crepitus is noted. No meningeal signs. No neck mass noted. No signs of trauma noted. CVS: Normal heart rate and rhythm. Heart sound normal. Pulses normal throughout. No murmurs/rales/gallops. Respiratory: No respiratory distress. Painless inspiration. Breath sounds normal. No wheezes/rales/rhonchi noted. Chest nontender. No crepitus is noted. No signs of trauma noted. No accessory muscle usage noted or decreased air movement noted. No signs of trauma. Abdomen: Soft and nontender. Bowel sounds normal in all 4 quadrants. No distention noted. No organomegaly noted. No visible injury noted. Back: Full range of motion noted. Nontender. Skin: Skin warm and dry. Normal skin color. Normal skin turgor. No rashes/lesions/lacerations noted. Extremities: No lower extremity edema. No calf tenderness is noted. Patient with mild tenderness palpation to the left ankle at the medial malleolus with mild soft tissue swelling. No obvious ligamentous or tendon injury noted. She has full range of motion of the left ankle/foot and told joints. Achilles tendon is intact. Negative Emerson test. Not consistent with septic joint there is no signs of infection. Otherwise all other extremities exhibit normal range of motion and nontender. Neuro: Oriented X 3. No motor deficit. No sensory deficit. Reflexes normal. Normal steady gait. No focal neuro deficits noted. CN's II-XII intact bilaterally? Vascular: + radial pulses/+ 2 distal pedal pulses/+2 dorsalis pedis b/l. Normal cap refill. No cyanosis noted to upper extremity nails and lower extremity toes nails. <PAT Ramirez Last Filed: 09/29/22 18:49> Course Course Course Narrative: RME performed by Ciara Salas PA-C. Patient is a 32 year old female presenting to the emergency department with a sore throat. COVID/Influenza/RSV swab and strep swab ordered. Patient placed back in waiting room pending bed availability and results. <PAT Ching Last Filed: 09/29/22 15:44> Reevaluation(s) Reevaluation #1: 32yoF c PMHx of psychogenic nonepileptic seizures who is presenting to the ER with complaints of the, malaise, chills, body aches, intermittent headaches, nasal congestion/rhinorrhea, sore throat an a dry cough over the past 2 days worse today. Daughter was recently treated for bacterial conjunctivitis and pharyngitis over the past few days as well here at [facility] ER. She also reports that she has atraumatic left medial ankle pain has been intermittent over the past few months and today she is having this pain. Patient negative for COVID/RSV/flu and strep. Although due to patient's daughter being treated for bacterial pharyngitis and patient having exudate on bilateral tonsils and a sore throat as her chief complaint will treat for bacterial pharyngitis. Will also obtain a left ankle x-ray if negative patient will be placed in Reece wrap and treat symptomatically for her ankle along with instructions follow-up with PCP and to return if any new or worsening symptoms. Patient understands agrees with this plan. <PAT Ramirez Last Filed: 09/29/22 18:49> Time: 17:52 <PAT Ramirez - Last Filed: 09/29/22 18:49> Medical Decision Making Lab Data Lab results reviewed: Yes I reviewed the patient's lab results. <PAT Ramirez - Last Filed: 09/29/22 18:49> Labs: Lab Results 09/29/22 09/29/22 Range/Units 16:04 16:04 Influenza Type A (PCR) NEGATIVE (Negative) Influenza Type B (PCR) NEGATIVE (Negative) RSV RNA Qual (PCR) NEGATIVE (Negative) SARS-CoV-2 RNA (RT-PCR) NEGATIVE (Negative) S. pyogenes GrpA YIN Negative (Negative) <PAT Ching - Last Filed: 09/29/22 15:44> Lab Results 09/29/22 09/29/22 Range/Units 16:04 16:04 Influenza Type A (PCR) NEGATIVE (Negative) Influenza Type B (PCR) NEGATIVE (Negative) RSV RNA Qual (PCR) NEGATIVE (Negative) SARS-CoV-2 RNA (RT-PCR) NEGATIVE (Negative) S. pyogenes GrpA YIN Negative (Negative) <PAT Ramirez - Last Filed: 09/29/22 18:49> Imaging Data left ankle xray: Attestation: I personally reviewed and interpreted this imaging study as follows: <PAT Ramirez - Last Filed: 09/29/22 18:49> Radiologist's impression: FINDINGS: The bones and soft tissues are normal. No fracture. Alignment is anatomic. Joint spaces are maintained. Moderate plantar calcaneal enthesophyte. Mild Achilles insertional enthesopathy. No joint effusion.? XR/XR ankle LT min 3V IMPRESSION: *? No acute fracture or dislocation. *? Moderate plantar calcaneal enthesophyte. <PAT Ramirez - Last Filed: 09/29/22 18:49> Discharge Plan Discharge Clinical Impression: Acute bacterial pharyngitis, Left ankle strain, Calcaneal spur <PAT Ching - Last Filed: 09/29/22 15:44> Patient Disposition: Home, Self-Care <PAT Ching - Last Filed: 09/29/22 15:44> Instructions: Pharyngitis (ED), Heel Spur (ED), Ankle Strain (ED) <PAT Ching - Last Filed: 09/29/22 15:44> Prescriptions: New cephalexin 500 mg capsule 500 mg PO Q6H 7 Days Qty: 28 0RF naproxen 500 mg tablet 500 mg PO BID PRN (Reason: pain) Qty: 14 0RF No Action naproxen 500 mg tablet 500 mg PO BID PRN (Reason: pain) Qty: 20 0RF cephalexin 500 mg capsule 500 mg PO QID Qty: 40 0RF azithromycin [Zithromax] 250 mg tablet 250 mg PO DAILY 4 Days Qty: 4 0RF hyoscyamine sulfate 0.125 mg tablet 0.125 mg PO QID PRN (Reason: dyspepsia) Qty: 10 0RF ondansetron 4 mg tablet,disintegrating 4 mg PO Q6H PRN (Reason: nausea and vomiting) Qty: 7 0RF codeine-guaifenesin [Guaifenesin AC] 10-100 mg/5 mL liquid 5 ml PO Q6H PRN (Reason: cold symptoms) Qty: 120 0RF albuterol sulfate 90 mcg/actuation HFA aerosol inhaler 1 inh inhalation QID PRN (Reason: shortness of breath or wheezing) Qty: 8.5 0RF amoxicillin-pot clavulanate [Augmentin] 875-125 mg tablet 1 tab PO BID 10 Days Qty: 20 0RF <PAT Ching - Last Filed: 09/29/22 15:44> Referrals: Kath Venegas MD [Primary Care Provider] - 3 days Willem Taylor [Physician] - (call to make a follow up appointment as needed ) <PAT Ching - Last Filed: 09/29/22 15:44> Stand Alone Forms: Work/School Release <PAT Ching - Last Filed: 09/29/22 15:44> Print Language: Bangladeshi <PAT Ching - Last Filed: 09/29/22 15:44>
[2022-09-29 16:28] LABS: Strep A Nucleic Acid Negative (Negative)
[2022-09-29 17:11] LABS: Influenza A PCR NEGATIVE (Negative); Influenza B PCR NEGATIVE (Negative); Resp Syncy Virus RNA Qual PCR NEGATIVE (Negative); SARS COV2 PCR INHOUSE NEGATIVE (Negative)
== END 2022-09-29 18:59 | disposition home or self-care (01) ==
PROVIDERS: Physician Assistant Medical; Emergency Provider Emergency Medicine Emergency Medical Services; PCP Internal Medicine
DX: J02.9 Acute pharyngitis, unspecified (principal); M79.10 Myalgia, unspecified site; M25.572 Pain in left ankle and joints of left foot; M77.32 Calcaneal spur, left foot; R51.9 Headache, unspecified; Z20.822 Contact with and (suspected) exposure to COVID-19; Z79.899 Other long term (current) drug therapy
CPT/HCPCS: 0241U; 73610; 87651; 99282; 99283

== ENCOUNTER 2022-11-16 15:33 | Emergency (ER) | payer MEDICAID, SELFPAY ==
--- NOTE | ~2022-11-16 | XR_ITS ---
EXAMINATION: XR CHEST CLINICAL INFORMATION: Status post seizure COMPARISON: Chest radiographs 02/22/2022, 11/05/2021 TECHNIQUE: Portable upright AP view of the chest was obtained. FINDINGS: There are low lung volumes with inspiration to the right posterior eighth rib. The lungs are clear. The vascularity is normal. The heart is within limits of normal size. There is no lobar or segmental airspace consolidation or groundglass opacity or effusion. No pneumothorax. Visualized bony structures are unremarkable. XR/XR chest 1V IMPRESSION: Low lung volumes. Lungs clear.
[2022-11-16 15:42] VITALS: BP 107/42; BP 116/72; PULSE 85; PULSE 96; RESP 16; TEMP 36.8; O2SAT 97; BMI 35.2
--- NOTE | 2022-11-16 16:21 | ECG_ITS ---
Test Reason : seizure Blood Pressure : / mmHG Vent. Rate : 077 BPM Atrial Rate : 077 BPM P-R Int : 140 ms QRS Dur : 088 ms QT Int : 354 ms P-R-T Axes : 063 060 027 degrees QTc Int : 400 ms Normal sinus rhythm Normal ECG When compared with ECG of 07-SEP-2022 16:26, No significant change was found Referred By: Cristiana Bender Electronically Signed By:GETACHEW ABBOTT MD
[2022-11-16 17:24] VITALS: BP 105/61; PULSE 83; RESP 19; O2SAT 98
[2022-11-16 17:27] LABS: MANUAL DIFF FLAG NO
[2022-11-16 17:29] LABS: Basophils Percent Auto 0.3 % (0-2); Eosinophils Percent Auto 0.5 % (0-4); Hematocrit 34.6 % (37.0-47.0); Hemoglobin 11.6 g/dl (12.0-16.0); Imm Gran Abs Auto 0.03 X10*3/uL (0.00-0.03); Imm Gran Pct Auto 0.5 % (0.0-0.4); Lymphocytes Absolute Auto 2.8 X10*3/uL (1.2-4.9); Lymphocytes Percent Auto 44.8 % (20-40); Mean Corpuscular HGB Conc 33.5 g/dl (31.0-35.0); Mean Corpuscular Hemoglobin 33.2 pg (27.0-33.0); Mean Corpuscular Volume 99.1 fL (80.0-98.0); Mean Platelet Volume 10.2 fL (9.4-12.3); Monocytes Absolute Auto 0.5 X10*3/uL (0.1-1.2); Monocytes Percent Auto 8.1 % (2-11); Neutrophils Absolute Auto 2.9 x10*3/uL (2.0-8.3); Neutrophils Percent Auto 45.8 % (45-73); Platelet Count 190 X10*3/uL (160-400); Red Blood Count 3.49 X10*6/uL (4.20-5.50); Red Cell Distribution Width 14.1 % (11.0-16.0); White Blood Count 6.3 X10*3/uL (4.8-10.8)
[2022-11-16 17:35] LABS: INTERNATIONAL NORM RATIO 1.1 (0.9-1.1); Prothrombin Time 12.6 SEC (10.0-13.1)
--- NOTE | 2022-11-16 18:00 | ED_ITS ---
HPI - Seizure General Chief Complaint: Seizure Stated Complaint: seizure activity Time Seen by Provider: 11/16/22 17:39 Source: patient and EMS Mode of arrival: EMS History of Present Illness HPI Narrative: 32-year-old female with a past medical history of epilespy on Valproic acid, psychogenic nonepileptic seizures presenting to the ED complaining of facial twitching and feeling like she was going to epileptic episode/seizure at work [employer]. Denies seizure, LOC , head strike, loss of postural tone, incontinence, tongue biting, or postictal state. Reports compliance with her valproic acid. Denies recent infectious symptoms including cough, chest pain /shortness of breath, fever, abdominal pain, nausea, vomiting, diarrhea. MD complaint: feels seizure coming on Seizure History: Yes Related Data Previous Rx's Medication Instructions Recorded naproxen 500 mg tablet 500 mg PO BID PRN pain #20 tabs 08/16/20 cephalexin 500 mg capsule 500 mg PO QID #40 caps 04/08/21 azithromycin 250 mg tablet 250 mg PO DAILY 4 days #4 tabs 04/11/21 (Zithromax) hyoscyamine sulfate 0.125 mg tablet 0.125 mg PO QID PRN dyspepsia #10 06/27/21 tabs albuterol sulfate 90 mcg/actuation 1 inh inhalation QID PRN shortness 11/05/21 aerosol inhaler of breath or wheezing #8.5 grams amoxicillin 875 mg-potassium 1 tab PO BID 10 days #20 tabs 11/05/21 clavulanate 125 mg tablet (Augmentin) codeine 10 mg-guaifenesin 100 mg/5 5 ml PO Q6H PRN cold symptoms #120 11/05/21 mL oral liquid (Guaifenesin AC) mL ondansetron 4 mg disintegrating 4 mg PO Q6H PRN nausea and 01/27/22 tablet vomiting #7 tabs cephalexin 500 mg capsule 500 mg PO Q6H 7 days #28 caps 09/29/22 naproxen 500 mg tablet 500 mg PO BID PRN pain #14 tabs 09/29/22 Allergies Allergy/AdvReac Type Severity Reaction Status Date / Time Iodinated Contrast Media Allergy Intermediate Facial Verified 08/21/21 02:05 Swelling clindamycin [CLINDAMYCIN] Allergy Unknown ANAPHYLAXIS Verified 08/21/21 02:05 Review of Systems Review of Systems: Constitutional: No Fever, No Chills, No Fatigue, No Malaise ENT/Mouth: No Ear Pain, No sore throat, No Rhinorrhea, No Swallowing Difficulty Eyes: No Eye Pain, No Swelling, No Redness Cardiovascular: No Chest Pain, No SOB Respiratory: No Cough, No Sputum, No Dyspnea Gastrointestinal: No Nausea, No Vomiting, No Diarrhea, No Constipation, No Abdominal pain Genitourinary: No Dysuria, No Hematuria, No Urinary Incontinence/retention, No Flank Pain Musculoskeletal: No joint pain, No Myalgias Skin: No Skin Lesions, No rash Neuro: +twitching, No Weakness, No Numbness, No Paresthesias, No Loss of Consciousness, No Dizziness, No Headache Psych: No Anxiety/Panic, No Depression, No SI/HI/AH/VH, No Social Issues Yes all other systems are reviewed and are negative Constitutional: Constitutional: Reports as per HPI Neurologic: Denies Abnormal speech present [facility] Past Medical History Attestation statement: The following information was validated with the patient. Medical History Epilepsy Surgical History Hx of cholecystectomy Social History Social History Alcohol intake: never Patient Tobacco Use Status: Never used Tobacco Smoked in Last 30 Days: No Use of substances other than those prescribed or required for medical reasons: No Advance Directives: No Advance Directives Information Provided: Yes Patient : No Physical Exam Vital Signs: Vital Signs: Last Vital Signs Temp 98.6 F 11/16/22 23:11 Pulse 86 11/16/22 23:11 Resp 18 11/16/22 23:11 BP 126/57 L 11/16/22 23:11 Pulse Ox 97 11/16/22 23:11 O2 Del Method 11/16/22 23:11 BMI result Body Mass Index 35.2 Const: General: cooperative, healthy appearing, no acute distress, alert and awake Orientation/consciousness: patient oriented x3 Limitations: no limitations HEENT: Head: Yes normal to inspection and Yes atraumatic Ears: hearing grossly normal bilaterally General nose exam: Normal external nose present Face and sinus: Yes normal facial exam Mouth: Normal oral and palatal mucosa present Throat: Yes posterior oropharynx normal, Yes tonsils normal, Yes uvula midline and No peritonsillar mass Eyes: General: appearance normal, both eyes and all related structures Pupils: Equal, round and reactive pupils present EOM: EOMs intact bilaterally Neck: Neck: Yes normal visual inspection and Yes no meningeal signs Resp: Effort & Inspection: normal respiratory effort and no respiratory distress Auscultation: clear to auscultation bilaterally, no crackles, no rhonchi and no wheezes Cardio: Rate: regular rate Heart sounds: S1 normal heart sound present and S2 normal heart sound present GI: Inspection: Yes normal to inspection Palpation (GI): Soft to palpation, nontender, no guarding and not rigid Skin: Rashes: no rashes Wounds: no wounds Neuro: General: patient oriented x3, gait normal, tone normal, moves all extremities, no meningeal signs, no focal motor deficits and CN's II-XI intact bilaterally Cranial nerves: Yes CN's II-XII intact bilaterally, Yes Equal, round and reactive pupils present and Yes Bilaterally intact EOM present Cognition (Neuro): normal cognition Speech: No Abnormal speech present Gait exam (Neuro): Normal gait present Motor exam (neuro): 5/5 motor strength present throughout, Pronator motor function not present and no tremor noted Coordination: [id number] test normal Romberg Test: Negative Extrem: General: Yes normal to inspection Course Course Course Narrative: -1931-- no leukocytosis. H&H at patient's baseline. Lactic acid of 2.9 > will give IVF and repeat likely from seizure vs jerking motions. Low suspicion for severe sepsis, no evidence of infection. - Acute on chronic transaminitis - UA with RBCs, not infected - valproic acid level elevated to 115. tox screen otherwise unremarkable XR chest 1V IMPRESSION: Low lung volumes. Lungs clear. -2134-- repeat lactic acid after 1 L IV a elevated 2.6 will give additional L and reassess. No evidence of infection, still low suspicion for severe sepsis - case discussed with Dr. Cartagena > will hold tonight's dose of valproic acid and patient can continue tomorrow & call Neurology -3rd repeat lactic 2.7 > error suspected. pts nurse re-sara specimen -7-- repeat lactic 3.6 (drawn directly right after 2.7 resulted) > case d/w Dr. Cartagena, patient is nontoxic appearing, no seizure like activity since ED arrival, no evidence of infection or sepsis. Patient is safe for discharge home at this time w/close PCP & Neurology f/u Results discussed with patient including worrisome signs and symptoms and strict return precautions, and when to return to the emergency department. They verbalized understanding and feel safe for discharge at this time. Medications Administered Discontinued Medications Generic Name Dose Route Start Last Admin Trade Name Romi PRN Reason Stop Dose Admin Sodium Chloride 1,000 mls @ 999 mls/hr 11/16/22 19:15 11/16/22 21:04 Ns IV 11/16/22 20:15 Infused .Q1H1M NAVEEN Infusion Sodium Chloride 1,000 mls @ 999 mls/hr 11/16/22 21:45 11/16/22 23:16 Ns IV 11/16/22 22:45 Infused .Q1H1M NAVEEN Infusion Ketorolac Tromethamine 15 mg 11/16/22 18:11 11/16/22 18:30 Ketorolac Tromethamine 15 Mg/Ml Vial IVPUSH 11/16/22 18:12 15 mg ONCE ONE Administration Ondansetron HCl 4 mg 11/16/22 18:12 11/16/22 18:30 Ondansetron Hcl 4 Mg/2 Ml Vial IVPUSH 11/16/22 18:13 4 mg ONCE ONE Administration Medical Decision Making Medical Decision Making [facility] Narrative: 32-year-old female with a past medical history of psychogenic nonepileptic seizures presenting to the ED complaining of facial twitching and feeling like she was going to epileptic episode/ seizure at work [employer]. On exam vital signs stable, NAD, nontoxic appearing, no focal neuro deficits. Concern for seizure /seizure prodrome vs psychogenic nonepileptic seizure vs conversion disorder. Low suspicion for epileptic seizure. Low suspicion for severe sepsis Plan: EKG, labs, UA, drug screen, CXR Please refer to course for remaining clinical decision making, interpretation of labs/imaging results, and discussions with consultants and/or family members. Differential Diagnosis Differential Diagnoses: The differential diagnosis associated with the presentation includes as above Lab Data [facility] Lab Attestation statement: I reviewed the patient's lab results. 11/16/22 17:21 11/16/22 17:21 Labs: Lab Results 11/16/22 11/16/22 11/16/22 Range/Units 17:21 17:21 17:21 WBC 6.3 (4.8-10.8) X10*3/uL RBC 3.49 L (4.20-5.50) X10*6/uL Hgb 11.6 L (12.0-16.0) g/dl Hct 34.6 L (37.0-47.0) % MCV 99.1 H (80.0-98.0) fL MCH 33.2 H (27.0-33.0) pg MCHC 33.5 (31.0-35.0) g/dl RDW 14.1 (11.0-16.0) % Plt Count 190 D (160-400) X10*3/uL MPV 10.2 (9.4-12.3) fL Immature Gran % (Auto) 0.5 H (0.0-0.4) % Neut % (Auto) 45.8 (45-73) % Lymph % (Auto) 44.8 H (20-40) % Gilmer % (Auto) 8.1 (2-11) % Eos % (Auto) 0.5 (0-4) % Baso % (Auto) 0.3 (0-2) % Lymph # (Auto) 2.8 (1.2-4.9) X10*3/uL Gilmer # (Auto) 0.5 (0.1-1.2) X10*3/uL Eos # (Auto) 0.0 (0.0-0.4) X10*3/uL Baso # (Auto) 0.0 (0.0-0.2) X10*3/uL Abs Immat Gran (auto) 0.03 (0.00-0.03) X10*3/uL Absolute Neuts (auto) 2.9 (2.0-8.3) x10*3/uL Absolute Nucleated RBC 0.000 (0.0-0.012) X10*3/uL Nucleated RBC % (auto) 0.0 (0.0-0.2) /100WBC PT 12.6 (10.0-13.1) SEC INR 1.1 (0.9-1.1) Sodium 138 (135-145) mmol/L Potassium 4.2 (3.3-5.1) mmol/L Chloride 101 (96-108) mmol/L Carbon Dioxide 27 (22-29) mmol/L Anion Gap 14 (12-20) BUN 10 (9-16) mg/dL Creatinine 0.63 (0.5-1.4) mg/dL Estim Creat Clear Calc 132.9 Estimated GFR > 60 Random Glucose 151 H (60-115) mg/dL Lactic Acid (0.5-2.0) mmol/L Lactic Acid F/U @ 2Hr (0.5-2.0) mmol/L Lactic Acid F/U @ 4Hr (0.5-2.0) mmol/L Calcium 9.0 D (8.4-10.2) mg/dL Magnesium 1.9 (1.6-2.6) mg/dL Total Bilirubin 0.4 (0.0-1.0) mg/dL AST 101 H (5-31) U/L ALT 74 H (0-31) U/L Alkaline Phosphatase 62 (39-117) U/L Ammonia Total Creatine Kinase 81 (26-140) U/L Total Protein 7.6 (6.5-8.0) g/dL Albumin 4.0 (3.5-5.0) g/dL Urine Color Urine Appearance Urine pH (5.0-9.0) Ur Specific [place] (1.005-1.025) Urine Protein (Neg-Trace) mg/dL Urine Glucose (UA) (Negative) mg/dL Urine Ketones (Negative) mg/dL Urine Blood (Negative) Urine Nitrite (Negative) Ur Leukocyte Esterase (Negative) Urine RBC (0-2) /HPF Urine WBC (0-5) /HPF Ur Squamous Epith Cells (0-2) /HPF Urine Bacteria (None Seen) Hyaline Casts (0-2) /LPF Urine Opiates Screen (Not Detect) Urine Fentanyl Screen (Not Detect) Ur Barbiturates Screen (Not Detect) Valproic Acid (50.0-100.0) mcg/mL Ur Phencyclidine Scrn (Not Detect) Ur Amphetamines Screen (Not Detect) U Benzodiazepines Scrn (Not Detect) Urine Cocaine Screen (Not Detect) U Marijuana (THC) Screen (Not Detect) Influenza Type A (PCR) (Negative) Influenza Type B (PCR) (Negative) RSV RNA Qual (PCR) (Negative) SARS-CoV-2 RNA (RT-PCR) (Negative) 11/16/22 11/16/22 11/16/22 Range/Units 17:21 17:21 18:42 WBC (4.8-10.8) X10*3/uL RBC (4.20-5.50) X10*6/uL Hgb (12.0-16.0) g/dl Hct (37.0-47.0) % MCV (80.0-98.0) fL MCH (27.0-33.0) pg MCHC (31.0-35.0) g/dl RDW (11.0-16.0) % Plt Count (160-400) X10*3/uL MPV (9.4-12.3) fL Immature Gran % (Auto) (0.0-0.4) % Neut % (Auto) (45-73) % Lymph % (Auto) (20-40) % Gilmer % (Auto) (2-11) % Eos % (Auto) (0-4) % Baso % (Auto) (0-2) % Lymph # (Auto) (1.2-4.9) X10*3/uL Gilmer # (Auto) (0.1-1.2) X10*3/uL Eos # (Auto) (0.0-0.4) X10*3/uL Baso # (Auto) (0.0-0.2) X10*3/uL Abs Immat Gran (auto) (0.00-0.03) X10*3/uL Absolute Neuts (auto) (2.0-8.3) x10*3/uL Absolute Nucleated RBC (0.0-0.012) X10*3/uL Nucleated RBC % (auto) (0.0-0.2) /100WBC PT (10.0-13.1) SEC INR (0.9-1.1) Sodium (135-145) mmol/L Potassium (3.3-5.1) mmol/L Chloride (96-108) mmol/L Carbon Dioxide (22-29) mmol/L Anion Gap (12-20) BUN (9-16) mg/dL Creatinine (0.5-1.4) mg/dL Estim Creat Clear Calc Estimated GFR Random Glucose (60-115) mg/dL Lactic Acid 2.9 H* (0.5-2.0) mmol/L Lactic Acid F/U @ 2Hr (0.5-2.0) mmol/L Lactic Acid F/U @ 4Hr (0.5-2.0) mmol/L Calcium (8.4-10.2) mg/dL Magnesium (1.6-2.6) mg/dL Total Bilirubin (0.0-1.0) mg/dL AST (5-31) U/L ALT (0-31) U/L Alkaline Phosphatase (39-117) U/L Ammonia Total Creatine Kinase (26-140) U/L Total Protein (6.5-8.0) g/dL Albumin (3.5-5.0) g/dL Urine Color Urine Appearance Urine pH (5.0-9.0) Ur Specific [place] (1.005-1.025) Urine Protein (Neg-Trace) mg/dL Urine Glucose (UA) (Negative) mg/dL Urine Ketones (Negative) mg/dL Urine Blood (Negative) Urine Nitrite (Negative) Ur Leukocyte Esterase (Negative) Urine RBC (0-2) /HPF Urine WBC (0-5) /HPF Ur Squamous Epith Cells (0-2) /HPF Urine Bacteria (None Seen) Hyaline Casts (0-2) /LPF Urine Opiates Screen (Not Detect) Urine Fentanyl Screen (Not Detect) Ur Barbiturates Screen (Not Detect) Valproic Acid 115.0 H* (50.0-100.0) mcg/mL Ur Phencyclidine Scrn (Not Detect) Ur Amphetamines Screen (Not Detect) U Benzodiazepines Scrn (Not Detect) Urine Cocaine Screen (Not Detect) U Marijuana (THC) Screen (Not Detect) Influenza Type A (PCR) NEGATIVE (Negative) Influenza Type B (PCR) NEGATIVE (Negative) RSV RNA Qual (PCR) NEGATIVE (Negative) SARS-CoV-2 RNA (RT-PCR) NEGATIVE (Negative) 11/16/22 11/16/22 11/16/22 Range/Units 18:42 18:42 21:10 WBC (4.8-10.8) X10*3/uL RBC (4.20-5.50) X10*6/uL Hgb (12.0-16.0) g/dl Hct (37.0-47.0) % MCV (80.0-98.0) fL MCH (27.0-33.0) pg MCHC (31.0-35.0) g/dl RDW (11.0-16.0) % Plt Count (160-400) X10*3/uL MPV (9.4-12.3) fL Immature Gran % (Auto) (0.0-0.4) % Neut % (Auto) (45-73) % Lymph % (Auto) (20-40) % Gilmer % (Auto) (2-11) % Eos % (Auto) (0-4) % Baso % (Auto) (0-2) % Lymph # (Auto) (1.2-4.9) X10*3/uL Gilmer # (Auto) (0.1-1.2) X10*3/uL Eos # (Auto) (0.0-0.4) X10*3/uL Baso # (Auto) (0.0-0.2) X10*3/uL Abs Immat Gran (auto) (0.00-0.03) X10*3/uL Absolute Neuts (auto) (2.0-8.3) x10*3/uL Absolute Nucleated RBC (0.0-0.012) X10*3/uL Nucleated RBC % (auto) (0.0-0.2) /100WBC PT (10.0-13.1) SEC INR (0.9-1.1) Sodium (135-145) mmol/L Potassium (3.3-5.1) mmol/L Chloride (96-108) mmol/L Carbon Dioxide (22-29) mmol/L Anion Gap (12-20) BUN (9-16) mg/dL Creatinine (0.5-1.4) mg/dL Estim Creat Clear Calc Estimated GFR Random Glucose (60-115) mg/dL Lactic Acid (0.5-2.0) mmol/L Lactic Acid F/U @ 2Hr (0.5-2.0) mmol/L Lactic Acid F/U @ 4Hr (0.5-2.0) mmol/L Calcium (8.4-10.2) mg/dL Magnesium (1.6-2.6) mg/dL Total Bilirubin (0.0-1.0) mg/dL AST (5-31) U/L ALT (0-31) U/L Alkaline Phosphatase (39-117) U/L Ammonia TNP Total Creatine Kinase (26-140) U/L Total Protein (6.5-8.0) g/dL Albumin (3.5-5.0) g/dL Urine Color RED Urine Appearance Cloudy Urine pH 7.5 (5.0-9.0) Ur Specific [place] 1.020 (1.005-1.025) Urine Protein Trace (Neg-Trace) mg/dL Urine Glucose (UA) Negative (Negative) mg/dL Urine Ketones Trace (Negative) mg/dL Urine Blood Large (3+) H (Negative) Urine Nitrite Negative (Negative) Ur Leukocyte Esterase Negative (Negative) Urine RBC >20 H (0-2) /HPF Urine WBC 0-5 (0-5) /HPF Ur Squamous Epith Cells 6-10 (0-2) /HPF Urine Bacteria 1+ (None Seen) Hyaline Casts 0-2 (0-2) /LPF Urine Opiates Screen Not Detected (Not Detect) Urine Fentanyl Screen Not Detected (Not Detect) Ur Barbiturates Screen Not Detected (Not Detect) Valproic Acid (50.0-100.0) mcg/mL Ur Phencyclidine Scrn Not Detected (Not Detect) Ur Amphetamines Screen Not Detected (Not Detect) U Benzodiazepines Scrn Not Detected (Not Detect) Urine Cocaine Screen Not Detected (Not Detect) U Marijuana (THC) Screen Not Detected (Not Detect) Influenza Type A (PCR) (Negative) Influenza Type B (PCR) (Negative) RSV RNA Qual (PCR) (Negative) SARS-CoV-2 RNA (RT-PCR) (Negative) 11/16/22 11/16/22 11/16/22 Range/Units 21:10 22:44 23:51 WBC (4.8-10.8) X10*3/uL RBC (4.20-5.50) X10*6/uL Hgb (12.0-16.0) g/dl Hct (37.0-47.0) % MCV (80.0-98.0) fL MCH (27.0-33.0) pg MCHC (31.0-35.0) g/dl RDW (11.0-16.0) % Plt Count (160-400) X10*3/uL MPV (9.4-12.3) fL Immature Gran % (Auto) (0.0-0.4) % Neut % (Auto) (45-73) % Lymph % (Auto) (20-40) % Gilmer % (Auto) (2-11) % Eos % (Auto) (0-4) % Baso % (Auto) (0-2) % Lymph # (Auto) (1.2-4.9) X10*3/uL Gilmer # (Auto) (0.1-1.2) X10*3/uL Eos # (Auto) (0.0-0.4) X10*3/uL Baso # (Auto) (0.0-0.2) X10*3/uL Abs Immat Gran (auto) (0.00-0.03) X10*3/uL Absolute Neuts (auto) (2.0-8.3) x10*3/uL Absolute Nucleated RBC (0.0-0.012) X10*3/uL Nucleated RBC % (auto) (0.0-0.2) /100WBC PT (10.0-13.1) SEC INR (0.9-1.1) Sodium (135-145) mmol/L Potassium (3.3-5.1) mmol/L Chloride (96-108) mmol/L Carbon Dioxide (22-29) mmol/L Anion Gap (12-20) BUN (9-16) mg/dL Creatinine (0.5-1.4) mg/dL Estim Creat Clear Calc Estimated GFR Random Glucose (60-115) mg/dL Lactic Acid (0.5-2.0) mmol/L Lactic Acid F/U @ 2Hr 2.6 H* (0.5-2.0) mmol/L Lactic Acid F/U @ 4Hr 2.7 H* (0.5-2.0) mmol/L Calcium (8.4-10.2) mg/dL Magnesium (1.6-2.6) mg/dL Total Bilirubin (0.0-1.0) mg/dL AST (5-31) U/L ALT (0-31) U/L Alkaline Phosphatase (39-117) U/L Ammonia 49 Total Creatine Kinase (26-140) U/L Total Protein (6.5-8.0) g/dL Albumin (3.5-5.0) g/dL Urine Color Urine Appearance Urine pH (5.0-9.0) Ur Specific [place] (1.005-1.025) Urine Protein (Neg-Trace) mg/dL Urine Glucose (UA) (Negative) mg/dL Urine Ketones (Negative) mg/dL Urine Blood (Negative) Urine Nitrite (Negative) Ur Leukocyte Esterase (Negative) Urine RBC (0-2) /HPF Urine WBC (0-5) /HPF Ur Squamous Epith Cells (0-2) /HPF Urine Bacteria (None Seen) Hyaline Casts (0-2) /LPF Urine Opiates Screen (Not Detect) Urine Fentanyl Screen (Not Detect) Ur Barbiturates Screen (Not Detect) Valproic Acid (50.0-100.0) mcg/mL Ur Phencyclidine Scrn (Not Detect) Ur Amphetamines Screen (Not Detect) U Benzodiazepines Scrn (Not Detect) Urine Cocaine Screen (Not Detect) U Marijuana (THC) Screen (Not Detect) Influenza Type A (PCR) (Negative) Influenza Type B (PCR) (Negative) RSV RNA Qual (PCR) (Negative) SARS-CoV-2 RNA (RT-PCR) (Negative) Independent Interpretation I performed an independent interpretation of an: EKG Interpretation: my interpretation: Normal sinus rhythm at a rate of 77. FL interval 140. QTC 400. No STEMI. Radiology Impression Discussion of test interpretation with radiology: I have reviewed the radiologist's reading. Discharge Plan Discharge Clinical Impression: Psychogenic nonepileptic seizure Patient Disposition: Home, Self-Care Instructions: Epilepsy (ED) Prescriptions: No Action naproxen 500 mg tablet 500 mg PO BID PRN (Reason: pain) Qty: 20 0RF cephalexin 500 mg capsule 500 mg PO QID Qty: 40 0RF azithromycin [Zithromax] 250 mg tablet 250 mg PO DAILY 4 Days Qty: 4 0RF hyoscyamine sulfate 0.125 mg tablet 0.125 mg PO QID PRN (Reason: dyspepsia) Qty: 10 0RF ondansetron 4 mg tablet,disintegrating 4 mg PO Q6H PRN (Reason: nausea and vomiting) Qty: 7 0RF cephalexin 500 mg capsule 500 mg PO Q6H 7 Days Qty: 28 0RF naproxen 500 mg tablet 500 mg PO BID PRN (Reason: pain) Qty: 14 0RF codeine-guaifenesin [Guaifenesin AC] 10-100 mg/5 mL liquid 5 ml PO Q6H PRN (Reason: cold symptoms) Qty: 120 0RF albuterol sulfate 90 mcg/actuation HFA aerosol inhaler 1 inh inhalation QID PRN (Reason: shortness of breath or wheezing) Qty: 8.5 0RF amoxicillin-pot clavulanate [Augmentin] 875-125 mg tablet 1 tab PO BID 10 Days Qty: 20 0RF Referrals: [facility] Neuro/Sleep [Provider Group]
[2022-11-16 18:03] LABS: Alanine Aminotransferase 74 U/L (0-31); Alkaline Phosphatase 62 U/L (39-117); Anion Gap 14 (12-20); Aspartate Amino Transferase 101 U/L (5-31); Bilirubin Total 0.4 mg/dL (0.0-1.0); Blood Urea Nitrogen 10 mg/dL (9-16); Carbon Dioxide 27 mmol/L (22-29); Chloride 101 mmol/L (96-108); Creatinine Clr Calc Pharmacy 132.9; Estimated Glomerular Filt Rate > 60; Glucose Random 151 mg/dL (60-115); Magnesium 1.9 mg/dL (1.6-2.6); Potassium 4.2 mmol/L (3.3-5.1); Sodium 138 mmol/L (135-145); Total Protein 7.6 g/dL (6.5-8.0)
[2022-11-16 18:10] LABS: Influenza A PCR NEGATIVE (Negative); Influenza B PCR NEGATIVE (Negative); Resp Syncy Virus RNA Qual PCR NEGATIVE (Negative); SARS COV2 PCR INHOUSE NEGATIVE (Negative)
[2022-11-16] MEDS: ondansetron HCL 4 MG/2 ML VIAL IVPUSH (18:30)
[2022-11-16] MEDS: Ketorolac Tromethamine 15 MG/ML VIAL IVPUSH (18:30)
[2022-11-16 18:58] LABS: Appearance Urine Cloudy; Color Urine RED; Glucose Urine UA Negative (Negative); Leukocyte Esterase Urine Negative (Negative); Nitrite Urine Negative (Negative); PH 7.5 (5.0-9.0); UMIC TRIGGER UACC YES; Urine Blood Large (3+) (Negative); Urine Ketones Trace mg/dL (Negative); Urine Protein Trace mg/dL (Neg-Trace)
[2022-11-16 19:00] LABS: Bacteria Urine 1+ (None Seen); Hyaline Casts Urine 0-2 /LPF (0-2); RBC Urine >20 /HPF (0-2); WBC Urine 0-5 /HPF (0-5)
[2022-11-16 19:04] LABS: Amphetamine Screen Urine Not Detected (Not Detect); Barbiturates, Urine Not Detected (Not Detect); Benzodiazepines Screen Urine Not Detected (Not Detect); Cannabinoid Screen Urine Not Detected (Not Detect); Cocaine Screen Urine Not Detected (Not Detect); Fentanyl, urine Not Detected (Not Detect); Opiate Screen Urine Not Detected (Not Detect); Phencyclidine Screen Urine Not Detected (Not Detect)
[2022-11-16 19:13] LABS: Lactic Acid 2.9 mmol/L (0.5-2.0)
[2022-11-16 19:39] VITALS: BP 111/46; PULSE 97; RESP 20; TEMP 36.7; O2SAT 96
[2022-11-16] MEDS: 0.9 % Sodium Chloride 1,000 ML 999 ML IV ×2 (19:50→21:56)
[2022-11-16 20:46] LABS: Reflex Lactate? Lactic Acid Added
--- NOTE | 2022-11-16 20:55 | PC.NURSE ---
pt ambulated safely/independently to restroom; denies dizziness
[2022-11-16 21:32] VITALS: PULSE 79; RESP 15; TEMP 36.8; O2SAT 97
[2022-11-16 21:34] LABS: ~Lactic Acid-LAB USE ONLY 2.6 mmol/L (0.5-2.0)
[2022-11-16 21:35] VITALS: BP 109/54
--- NOTE | 2022-11-16 21:58 | PC.NURSE ---
pt denies any pain, resting quietly while watching tv; at bedside
[2022-11-16 23:11] VITALS: BP 126/57; PULSE 86; RESP 18; TEMP 37; O2SAT 97
[2022-11-16 23:13] LABS: Ammonia 49 umol/L (13-55)
[2022-11-16 23:14] LABS: Reflex Lactate? 2 Y
--- NOTE | 2022-11-16 23:39 | MHC.EDTECH ---
Lactic acid will be drawn when fluids are finished per Aurea FINN
[2022-11-17 00:17] LABS: ~Lactic Acid-LAB USE ONLY 2.7 mmol/L (0.5-2.0)
--- NOTE | 2022-11-17 00:19 | PC.NURSE ---
This medical underwriter reported critical lab of lactic 2.7 reported to REBECA Oro and Provider Aurea
[2022-11-17 00:55] LABS: Lactic Acid 3.6 mmol/L (0.5-2.0)
--- NOTE | 2022-11-17 01:10 | PC.NURSE ---
Discharge instructions given and explained; patient ambulates safely/independently; no apparent distress; IV cath tip intact upon removal
[2022-11-17 02:30] LABS: Reflex Lactate? Lactic Acid Added
== END 2022-11-17 01:08 | disposition home or self-care (01) ==
PROVIDERS: Physician Assistant; Physician Assistant Medical; Emergency Provider Internal Medicine; PCP Internal Medicine
DX: R56.9 Unspecified convulsions (principal); R25.3 Fasciculation; R06.02 Shortness of breath; Z20.822 Contact with and (suspected) exposure to COVID-19; Z20.828 Contact with and (suspected) exposure to other viral communicable diseases; Z79.899 Other long term (current) drug therapy
CPT/HCPCS: 0241U; 36415; 71045; 80053; 80164; 80307; 81001; 82140; 82550; 83605; 83735; 85025; 85610; 93005; 96361; 96374; 96375; 99285; J1885; J2405

== ENCOUNTER 2022-11-27 10:40 | Outpatient (REF) | payer MEDICAID, SELFPAY ==
--- NOTE | ~2022-11-27 | US_ITS ---
EXAMINATION: US PELVIS CLINICAL INFORMATION: Oligomenorrhea with pelvic and perineal pain. COMPARISON: None TECHNIQUE: Ultrasound of the pelvis is performed using both transabdominal and transvaginal transducers along with Doppler. Transvaginal imaging is performed due to inadequate visualization transabdominally. FINDINGS: Uterus: The uterus is anteverted and measures 7.4 x 4.2 x 5.4 cm. The double wall endometrial thickness is 11 mm. The uterus is smooth in contour and has normal myometrial echogenicity. No visible fibroid. Nabothian cysts are present in the cervix. Adnexa: Both ovaries are visualized. There is normal color flow to the adnexa. There is no ovarian torsion. There is no pelvic ascites or fluid collection. Right ovary measures 3.4 x 1.7 x 1.6 cm. Left ovary measures 2.4 x 1.4 x 2.3 cm. US/US pelvic and transvaginal IMPRESSION: Negative exam.
== END 2022-11-27 10:41 | disposition home or self-care (01) ==
LOC: HO.US 10:40
PROVIDERS: PCP Internal Medicine; Visit Provider Advanced Practice Midwife
DX: N91.5 Oligomenorrhea, unspecified (principal); R10.2 Pelvic and perineal pain
CPT/HCPCS: 76830; 76856

== ENCOUNTER 2022-12-25 15:59 | Emergency (ER) | payer MEDICAID, SELFPAY ==
[2022-12-25 16:33] VITALS: BP 130/72; PULSE 99; RESP 18; TEMP 36.9; O2SAT 98; BMI 33.5
--- NOTE | 2022-12-25 16:36 | ED.GENADULT ---
HPI - General Adult General Chief complaint: General Medical <PAT Brand - Last Filed: 12/25/22 16:37> Stated complaint: sore throat,lower back pain <PAT Brand - Last Filed: 12/25/22 16:37> Time Seen by Provider: 12/25/22 19:44 <PAT Brand - Last Filed: 12/25/22 16:37> Source: patient <PAT Phelan - Last Filed: 12/25/22 20:44> Mode of arrival: ambulatory <PAT Phelan - Last Filed: 12/25/22 20:44> Limitations: no limitations <PAT Phelan Last Filed: 12/25/22 20:44> History of Present Illness HPI narrative: This is a 32-year-old female history of epilepsy, presenting to the emergency department complaints of sore throat, fatigue, malaise, dry cough since Sunday, 3 days ago. Patient tells me he nobody is sick around her. Reports subjective fevers and chills as well as myalgias. Tells me are feels like she is swallowing glass and hurts to swallow. Denies chest pain, shortness of breath, nausea, vomiting, abdominal pain, flank pain, headache, vision changes, dizziness, weakness. <PAT Phelan - Last Filed: 12/25/22 20:44> Related Data Home medications: Previous Rx's Medication Instructions Recorded naproxen 500 mg tablet 500 mg PO BID PRN pain #20 tabs 08/16/20 cephalexin 500 mg capsule 500 mg PO QID #40 caps 04/08/21 azithromycin 250 mg tablet 250 mg PO DAILY 4 days #4 tabs 04/11/21 (Zithromax) hyoscyamine sulfate 0.125 mg tablet 0.125 mg PO QID PRN dyspepsia #10 06/27/21 tabs albuterol sulfate 90 mcg/actuation 1 inh inhalation QID PRN shortness 11/05/21 aerosol inhaler of breath or wheezing #8.5 grams amoxicillin 875 mg-potassium 1 tab PO BID 10 days #20 tabs 11/05/21 clavulanate 125 mg tablet (Augmentin) codeine 10 mg-guaifenesin 100 mg/5 5 ml PO Q6H PRN cold symptoms #120 11/05/21 mL oral liquid (Guaifenesin AC) mL ondansetron 4 mg disintegrating 4 mg PO Q6H PRN nausea and 01/27/22 tablet vomiting #7 tabs cephalexin 500 mg capsule 500 mg PO Q6H 7 days #28 caps 09/29/22 naproxen 500 mg tablet 500 mg PO BID PRN pain #14 tabs 09/29/22 Magic Mouthwash 5 ml PO TID #240 mL 12/25/22 Diphen/Lido/Antacid 1:1:1 240 mL suspension amoxicillin 875 mg-potassium 1 tab PO BID 10 days #20 tabs 12/25/22 clavulanate 125 mg tablet prednisone 20 mg tablet 40 mg PO DAILY 5 days #10 tabs 12/25/22 <PAT Bradn - Last Filed: 12/25/22 16:37> Allergies/adverse reactions: Allergies Allergy/AdvReac Type Severity Reaction Status Date / Time Iodinated Contrast Media Allergy Intermediate Facial Verified 08/21/21 02:05 Swelling clindamycin [CLINDAMYCIN] Allergy Unknown ANAPHYLAXIS Verified 08/21/21 02:05 <PAT Brand Last Filed: 12/25/22 16:37> Review of Systems Review of Systems: Constitutional : No Weight loss, + Fever, + Chills, + Fatigue, + Malaise ENT/Mouth : + sore throat, No Rhinorrhea Eyes: No Eye Pain, No Swelling, No Redness Cardiovascular : No Chest Pain, No SOB, No Dyspnea on Exertion, No Orthopnea, No Edema, No Palpitations Respiratory : + Cough, No Sputum, No Wheezing Gastrointestinal : No Nausea, No Vomiting, No Diarrhea, No Constipation, No abdominal Pain, No Hematochezia, No Melena Genitourinary : No Dysuria, No Urinary Frequency, No Hematuria, Musculoskeletal : No joint pain, No Myalgias, No Joint Swelling Skin : No Skin Lesions, No rash Neuro : No Weakness, No Numbness, No Dizziness, No Headache Psych : No Anxiety/Panic, No Depression All other systems reviewed and are negative <PAT Phelan Last Filed: 12/25/22 20:44> Yes all other systems are reviewed and are negative <PAT Phelan - Last Filed: 12/25/22 20:44> [facility] Past Medical History Attestation statement: The following information was validated with the patient. <PAT Phelan - Last Filed: 12/25/22 20:44> Source: old records reviewed and nursing notes reviewed <PAT Phelan - Last Filed: 12/25/22 20:44> Medical History: Medical History Epilepsy <PAT Brand - Last Filed: 12/25/22 16:37> Surgical History: Surgical History Hx of cholecystectomy <PAT Brand - Last Filed: 12/25/22 16:37> Social History Social History: Social History Alcohol intake: current Alcohol intake frequency: holidays/special occasions only Patient Tobacco Use Status: Never used Tobacco Smoked in Last 30 Days: No Use of substances other than those prescribed or required for medical reasons: No Advance Directives: No Advance Directives Information Provided: Yes <PAT Brand - Last Filed: 12/25/22 16:37> Physical Exam ED Vital Signs: Vital Signs - 24 hr 12/25/22 16:33 Temperature 98.4 F Pulse Rate 99 Respiratory Rate 18 Blood Pressure 130/72 Pulse Oximetry 98 Oxygen Delivery Method Room Air BMI result Body Mass Index 33.5 <PAT Brand - Last Filed: 12/25/22 16:37> Vital Signs - 24 hr 12/25/22 16:33 Temperature 98.4 F Pulse Rate 99 Respiratory Rate 18 Blood Pressure 130/72 Pulse Oximetry 98 Oxygen Delivery Method Room Air BMI result Body Mass Index 33.5 vss <PAT Phelan - Last Filed: 12/25/22 20:44> Appearance: Alert.? Oriented X3.? No acute distress.? Head: Normocephalic, atraumatic, no step-offs or deformities Eyes: Pupils equal, round and reactive to light.? Pharynx: Uvula midline, posterior pharynx appears erythematous with cobblestoning. Bilateral tonsils enlarged, tonsils are not touching there is no signs of abscess. No trismus. Patient is speaking full sentences controlling secretions well. No exudates on tonsils. No palpable lymphadenopathy Neck: Normal inspection.? Neck supple.? CVS: Normal heart rate and rhythm.? Pulses normal.? Respiratory: No respiratory distress.? Breath sounds normal.? Abdomen: Soft and nontender.? Skin: Skin warm and dry.? Normal skin color.? Normal skin turgor.? Extremities: No lower extremity edema.? No calf ttp. 5/5 strength to bilateral upper and lower extremities Back: No midline tenderness, no C-spine tenderness, full range of motion, no CVA tenderness bilaterally Neuro: Oriented X 3.? No motor deficit.? No sensory deficit. CN 2-12 intact <PAT Phelan - Last Filed: 12/25/22 20:44> Course Course Course Narrative: RME - 32 yo female presenting with 3 days of body aches, sore throat, cough, chills. VSS in triage. Viral swabs and strep ordered. <PAT Brand Last Filed: 12/25/22 16:37> Reevaluation(s) Reevaluation #1: COVID, influenza negative. Strep negative. Will still treat patient for strep due to symptoms. Educated patient on diagnosis and treatment plan, answered all question, patient verbalizes understanding. At this time patient will be discharged home, advised to return with new or worsening symptoms. Educated on worrisome signs and symptoms and when to return. At this time I feel comfortable discharge home. <PAT Phelan - Last Filed: 12/25/22 20:44> Time: 20:43 <PAT Phelan Last Filed: 12/25/22 20:44> Medications Administered Discontinued Medications Generic Name Dose Route Start Last Admin Trade Name Freq PRN Reason Stop Dose Admin Lidocaine HCl 15 ml 12/25/22 20:05 12/25/22 20:35 Lidocaine Hcl Viscous 2 % 15 Ml Solution MUCOUS MEM 12/25/22 20:06 15 ml ONCE ONE Administration <PAT Brand Last Filed: 12/25/22 16:37> Medications Administered Discontinued Medications Generic Name Dose Route Start Last Admin Trade Name Romi PRN Reason Stop Dose Admin Lidocaine HCl 15 ml 12/25/22 20:05 12/25/22 20:35 Lidocaine Hcl Viscous 2 % 15 Ml Solution MUCOUS MEM 12/25/22 20:06 15 ml ONCE ONE Administration <PAT Phelan Last Filed: 12/25/22 20:44> Medical Decision Making Medical Decision Making [facility] Narrative: 1949 32-year-old female presents with URI symptoms and sore throat x3 days. Denies sick contacts. Reports subjective fevers and chills. Physical exam significant for Uvula midline, posterior pharynx appears erythematous with cobblestoning. Bilateral tonsils enlarged, tonsils are not touching there is no signs of abscess. No trismus. Patient is speaking full sentences controlling secretions well. No exudates on tonsils. No palpable lymphadenopathy Concerns for possible strep throat versus viral illness. Unlikely peritonsillar abscess, epiglottitis. No signs of airway compromise on my exam. Unlikely PE, pneumonia. Plan at this time is viral testing. No need for further imaging as I do not suspect peritonsillar abscess. <PAT Phelan - Last Filed: 12/25/22 20:44> Differential Diagnosis Differential Diagnoses: The differential diagnosis associated with the presentation includes <PAT Phelan - Last Filed: 12/25/22 20:44> Concerns for possible strep throat versus viral illness. Unlikely peritonsillar abscess, epiglottitis. No signs of airway compromise on my exam. Unlikely PE, pneumonia. <PAT Phelan - Last Filed: 12/25/22 20:44> Admission/Observation Consideration of admission/observation: Escalation of care including admission/observation considered <PAT Phelan Last Filed: 12/25/22 20:44> Lab Data [facility] Lab Attestation statement: I reviewed the patient's lab results. <PAT Phelan Last Filed: 12/25/22 20:44> Labs: Lab Results 12/25/22 12/25/22 12/25/22 Range/Units 17:33 17:33 19:16 COVID-19 (TOÑA) Negative (Negative) COVID-19 Clin Com See Note Influenza Type A (YIN) Negative (Negative) Influenza Type B (YIN) Negative (Negative) Influenza A & B Note See Note S. pyogenes GrpA YIN Negative (Negative) <PAT Brand - Last Filed: 12/25/22 16:37> Lab Results 12/25/22 12/25/22 12/25/22 Range/Units 17:33 17:33 19:16 COVID-19 (TOÑA) Negative (Negative) COVID-19 Clin Com See Note Influenza Type A (YIN) Negative (Negative) Influenza Type B (YIN) Negative (Negative) Influenza A & B Note See Note S. pyogenes GrpA YIN Negative (Negative) <PAT Phelan - Last Filed: 12/25/22 20:44> Core Measures AMI core measures followed: Yes <PAT Phelan - Last Filed: 12/25/22 20:44> Measure exclusions: not indicated <PAT Phelan - Last Filed: 12/25/22 20:44> Critical Care Time Critical Care Time Critical Care Time: No <PAT Phelan - Last Filed: 12/25/22 20:44> Discharge Plan Discharge Clinical Impression: Sore throat, Viral illness <PAT Brand - Last Filed: 12/25/22 16:37> Patient Disposition: Home, Self-Care <PAT Brand - Last Filed: 12/25/22 16:37> Instructions: Pharyngitis (ED) <PAT Brand - Last Filed: 12/25/22 16:37> Additional Instructions: Take your medications as prescribed. If you were prescribed antibiotics today, it is important that you take your medication to their entirety, do not skip any doses, do not finish them early. Follow-up with your primary care provider this week. Return to the emergency department with new or worsening symptoms. Such as fevers, chills, chest pain, shortness of breath, nausea, vomiting, dizziness, headache, vision changes, lethargy, changes in voice, difficulty speak, trouble controlling saliva In case of emergency call 911 <PAT Brand - Last Filed: 12/25/22 16:37> Prescriptions: New prednisone 20 mg tablet 40 mg PO DAILY 5 Days Qty: 10 0RF amoxicillin-pot clavulanate 875-125 mg tablet 1 tab PO BID 10 Days Qty: 20 0RF Magic Mouthwash Diphen/Lido/Antacid 1:1:1 240 mL suspension 5 ml PO TID Qty: 240 0RF Rx Instructions: Lidocaine Viscous 2 % 80mL; diphenhydramine 12.5 mg/5 mL 80mL; aluminum-mag hydrox-simeth [id number]-30le/5mL 80mL Swish and spit, do not swallow No Action naproxen 500 mg tablet 500 mg PO BID PRN (Reason: pain) Qty: 20 0RF cephalexin 500 mg capsule 500 mg PO QID Qty: 40 0RF azithromycin [Zithromax] 250 mg tablet 250 mg PO DAILY 4 Days Qty: 4 0RF hyoscyamine sulfate 0.125 mg tablet 0.125 mg PO QID PRN (Reason: dyspepsia) Qty: 10 0RF ondansetron 4 mg tablet,disintegrating 4 mg PO Q6H PRN (Reason: nausea and vomiting) Qty: 7 0RF cephalexin 500 mg capsule 500 mg PO Q6H 7 Days Qty: 28 0RF naproxen 500 mg tablet 500 mg PO BID PRN (Reason: pain) Qty: 14 0RF codeine-guaifenesin [Guaifenesin AC] 10-100 mg/5 mL liquid 5 ml PO Q6H PRN (Reason: cold symptoms) Qty: 120 0RF albuterol sulfate 90 mcg/actuation HFA aerosol inhaler 1 inh inhalation QID PRN (Reason: shortness of breath or wheezing) Qty: 8.5 0RF amoxicillin-pot clavulanate [Augmentin] 875-125 mg tablet 1 tab PO BID 10 Days Qty: 20 0RF <PAT Brand - Last Filed: 12/25/22 16:37> Referrals: Kath Venegas MD [Primary Care Provider] - 2 days <PAT Brand - Last Filed: 12/25/22 16:37> Stand Alone Forms: Work/School Release <PAT Brand - Last Filed: 12/25/22 16:37> Interventions: ED Discharge Assessment Last Done: 12/25/22 20:38 <PAT Brand - Last Filed: 12/25/22 16:37> Discharge Date/Time: 12/25/22 20:38 <PAT Brand - Last Filed: 12/25/22 16:37>
[2022-12-25 17:54] LABS: COVID-19 Test Negative (Negative); IDNOW Serial# 16C4AD1C
[2022-12-25 17:55] LABS: IDNOW Serial# BCCEAD1C; Influenza A Negative (Negative); Influenza B2 Negative (Negative)
[2022-12-25 19:33] LABS: IDNOW Serial# 6674DD1D; Strep A Nucleic Acid Negative (Negative)
[2022-12-25] MEDS: Lidocaine HCl Viscous 2 % 15 ML SOLUTION MUCOUS MEM (20:35)
== END 2022-12-25 20:38 | disposition home or self-care (01) ==
PROVIDERS: Physician Assistant; Emergency Provider Emergency Medicine; PCP Internal Medicine
DX: B34.9 Viral infection, unspecified (principal); J02.9 Acute pharyngitis, unspecified; Z20.822 Contact with and (suspected) exposure to COVID-19; E11.9 Type 2 diabetes mellitus without complications; Z79.899 Other long term (current) drug therapy
CPT/HCPCS: 87502; 87635; 87651; 99283; 99284

== ENCOUNTER 2022-12-29 11:10 | Inpatient (IN) | payer MEDICAID, SELFPAY ==
[2022-12-29] VITALS (8 sets, daily range): BP systolic 111–132; BP diastolic 53–77; PULSE 83–112; RESP 16–24; TEMP 36.2–37.9; O2SAT 91–96; BMI 34.7; BMI 35.0
--- NOTE | ~2022-12-29 | CT_ITS ---
EXAMINATION: CT ANGIOGRAM OF THE CHEST WITH AND WITHOUT CONTRAST (CT PULMONARY ANGIOGRAM FOR PE) CLINICAL INFORMATION: Reason for Exam SOB. Hypoxia COMPARISON: 12/29/2022 radiograph. TECHNIQUE: Prior to contrast administration, noncontrast localization images were obtained. Subsequently, multidetector volumetric imaging was performed from the thoracic inlet to below the diaphragms following the administration of 65 mL Omnipaque 350 intravenous contrast. No contrast reaction reported Sagittal, coronal, and MIP oblique sagittal reformatted images were obtained on the CT workstation, uploaded to PACS, and reviewed. This CT examination was performed using dose optimization techniques as appropriate, variously including the following: *Automated exposure control *Adjustment of mA and/or kV according to patient size (this includes techniques or standardized protocols for targeted exams where dose is matched to indication/reason for exam; i.e. extremities or head) *Use of iterative reconstruction technique Total exam dose-length product 367 mGy-cm FINDINGS: QUALITY OF STUDY/CONTRAST BOLUS: Satisfactory. PULMONARY ARTERIES: No central or segmental pulmonary emboli. THORACIC AORTA: No aneurysm or dissection. LUNG: No dense consolidation, nodules or masses. Mild dependent atelectasis bilaterally. Patchy groundglass opacities in the left upper lobe. The central airways are patent. PLEURA: No pleural effusion or pneumothorax. MEDIASTINUM: Normal heart size. No pericardial effusion. No hilar or mediastinal lymphadenopathy. No evidence of septal bowing or right heart strain. CORONARY ARTERY CALCIFICATION: None visualized on this study. CHEST WALL/AXILLA: No axillary or internal mammary lymphadenopathy. OSSEOUS STRUCTURES: No acute or suspicious osseous abnormality. Small endplate osteophytes of the thoracic spine. UPPER ABDOMEN: Low-attenuation of the liver suggestive of hepatic steatosis. No reflux of contrast into the hepatic veins to suggest elevated right heart pressures. CT/CT angio chest PE protocol IMPRESSION: 1. No central or segmental pulmonary emboli. 2. Patchy groundglass opacities in the left upper lobe could be infectious or inflammatory. 3. Hepatic steatosis. VTE: negative
--- NOTE | ~2022-12-29 | XR_ITS ---
EXAMINATION: XR CHEST CLINICAL INFORMATION: Cough and fever. Hypoxia. COMPARISON: 11/16/2022 TECHNIQUE: 2 views of the chest were obtained. FINDINGS: The lungs are well expanded. There is no focal consolidation, edema, or effusion. Mild bronchial wall thickening. No pneumothorax. The cardiomediastinal silhouette is within normal limits. No acute osseous abnormality. XR/XR chest 2V IMPRESSION: No dense consolidation. Bronchial wall thickening can be seen with a small airways process such as asthma or atypical/viral infection.
--- NOTE | 2022-12-29 11:32 | ED.URI ---
HPI - URI/Sore Throat General Chief Complaint: Dyspnea <Radha Quintero CNP - Last Filed: 12/29/22 13:44> Stated Complaint: low oxygen <Radha Quintero CNP - Last Filed: 12/29/22 13:44> Time Seen by Provider: 12/29/22 13:32 <Radha Quintero CNP - Last Filed: 12/29/22 13:44> Source: patient <PAT Hoskins - Last Filed: 12/29/22 16:58> Mode of arrival: ambulatory <PAT Hoskins Last Filed: 12/29/22 16:58> History of Present Illness HPI Narrative: 32-year-old female with a past medical history epilepsy on Valproic Acid, psychogenic nonepileptic seizures, recently seen and treated in our ED on 12/25 for pharyngitis discharged on Augmentin and Prednisone, presenting to the ED complaining of fever T-max 102 degrees, persistent productive cough, SOB, chest discomfort worsened with coughing and movement, rhinorrhea, and generalized fatigue/weakness x 2 days. Patient was sent in from doctor's office noted to be hypoxic at 92% on RA. Denies abdominal pain, nausea/vomiting, pedal edema, cigarette smoking, history of clots, oral OCPs. <PAT Hoskins - Last Filed: 12/29/22 16:58> MD elicited complaint: fever, cough, sore throat, rhinorrhea and nasal congestion <PAT Hoskins Last Filed: 12/29/22 16:58> Onset (ago): day(s) <PAT Hoskins Last Filed: 12/29/22 16:58> Related Data Home Medications: Previous Rx's Medication Instructions Recorded naproxen 500 mg tablet 500 mg PO BID PRN pain #20 tabs 08/16/20 cephalexin 500 mg capsule 500 mg PO QID #40 caps 04/08/21 azithromycin 250 mg tablet 250 mg PO DAILY 4 days #4 tabs 04/11/21 (Zithromax) hyoscyamine sulfate 0.125 mg tablet 0.125 mg PO QID PRN dyspepsia #10 06/27/21 tabs albuterol sulfate 90 mcg/actuation 1 inh inhalation QID PRN shortness 11/05/21 aerosol inhaler of breath or wheezing #8.5 grams amoxicillin 875 mg-potassium 1 tab PO BID 10 days #20 tabs 11/05/21 clavulanate 125 mg tablet (Augmentin) codeine 10 mg-guaifenesin 100 mg/5 5 ml PO Q6H PRN cold symptoms #120 11/05/21 mL oral liquid (Guaifenesin AC) mL ondansetron 4 mg disintegrating 4 mg PO Q6H PRN nausea and 01/27/22 tablet vomiting #7 tabs cephalexin 500 mg capsule 500 mg PO Q6H 7 days #28 caps 09/29/22 naproxen 500 mg tablet 500 mg PO BID PRN pain #14 tabs 09/29/22 Magic Mouthwash 5 ml PO TID #240 mL 12/25/22 Diphen/Lido/Antacid 1:1:1 240 mL suspension amoxicillin 875 mg-potassium 1 tab PO BID 10 days #20 tabs 12/25/22 clavulanate 125 mg tablet prednisone 20 mg tablet 40 mg PO DAILY 5 days #10 tabs 12/25/22 <Radha Quintero [facility] - Last Filed: 12/29/22 13:44> Allergies/Adverse Reactions: Allergies Allergy/AdvReac Type Severity Reaction Status Date / Time Iodinated Contrast Media Allergy Intermediate Facial Verified 08/21/21 02:05 Swelling clindamycin [CLINDAMYCIN] Allergy Unknown ANAPHYLAXIS Verified 08/21/21 02:05 <Radha Quintero CNP - Last Filed: 12/29/22 13:44> Review of Systems Review of Systems: Constitutional: + Fever, + Chills, No Fatigue, No Malaise ENT/Mouth: No Ear Pain, + Nasal Congestion, No sore throat, + Rhinorrhea, No Swallowing Difficulty Eyes: No Eye Pain, No Swelling, No Redness, No Vision Changes Cardiovascular: + Chest Pain, + SOB, No Dyspnea on Exertion, No Orthopnea, No Edema, No Palpitations Respiratory: + Cough, + Sputum, No Wheezing,+ Dyspnea Gastrointestinal: No Nausea, No Vomiting, No Diarrhea, No Constipation, No Abdominal pain Genitourinary: No Dysuria, No Urinary Frequency, No Hematuria, No Urinary Flow Changes, No Hesitancy Musculoskeletal: No joint pain, No Myalgias, No Joint Swelling Skin: No Skin Lesions, No rash Neuro: No Weakness, No Dizziness, No Headache <PAT Hoskins - Last Filed: 12/29/22 16:58> Yes all other systems are reviewed and are negative <PAT Hoskins - Last Filed: 12/29/22 16:58> Constitutional: Constitutional: Reports as per HPI <PAT Hoskins - Last Filed: 12/29/22 16:58> [facility] Past Medical History Attestation statement: The following information was validated with the patient. <PAT Hoskins - Last Filed: 12/29/22 16:58> Medical History: Medical History Epilepsy <Radha Quintero CNP - Last Filed: 12/29/22 13:44> Surgical History: Surgical History Hx of cholecystectomy <Radha Quintero CNP - Last Filed: 12/29/22 13:44> Social History Social History: Social History Alcohol intake: current Alcohol intake frequency: does not drink Patient Tobacco Use Status: Never used Tobacco Smoked in Last 30 Days: No Use of substances other than those prescribed or required for medical reasons: No Advance Directives: No Advance Directives Information Provided: Yes <Radha Quintero CNP - Last Filed: 12/29/22 13:44> Physical Exam Vital Signs: Vital Signs: Last Vital Signs Temp 98.2 F 12/29/22 13:40 Pulse 90 12/29/22 16:10 Resp 22 H 12/29/22 16:10 BP 124/53 L 12/29/22 16:10 Pulse Ox 94 12/29/22 16:10 O2 Del Method 12/29/22 16:10 O2 Flow Rate 2 12/29/22 16:10 BMI result Body Mass Index 34.7 <Radha Quintero CNP - Last Filed: 12/29/22 13:44> Vital Signs: Last Vital Signs Temp 98.2 F 12/29/22 13:40 Pulse 90 12/29/22 16:10 Resp 22 H 12/29/22 16:10 BP 124/53 L 12/29/22 16:10 Pulse Ox 94 12/29/22 16:10 O2 Del Method 12/29/22 16:10 O2 Flow Rate 2 12/29/22 16:10 BMI result Body Mass Index 34.7 <PAT Hoskins - Last Filed: 12/29/22 16:58> Const: General: cooperative, no acute distress, alert and awake <PAT Hoskins - Last Filed: 12/29/22 16:58> Orientation/consciousness: patient oriented x3 <PAT Hoskins - Last Filed: 12/29/22 16:58> Limitations: no limitations <PAT Hoskins - Last Filed: 12/29/22 16:58> HEENT: Head: Yes normal to inspection and Yes atraumatic <PAT Hoskins - Last Filed: 12/29/22 16:58> Ears: hearing grossly normal bilaterally <PAT Hoskins - Last Filed: 12/29/22 16:58> General nose exam: Normal external nose present <PAT Hoskins - Last Filed: 12/29/22 16:58> Face and sinus: Yes normal facial exam <PAT Hoskins - Last Filed: 12/29/22 16:58> Throat: Yes posterior oropharynx normal, Yes tonsils normal and Yes uvula midline <PAT Hoskins - Last Filed: 12/29/22 16:58> Eyes: General: appearance normal, both eyes and all related structures <PAT Hoskins - Last Filed: 12/29/22 16:58> EOM: EOMs intact bilaterally <PAT Hoskins - Last Filed: 12/29/22 16:58> Neck: Neck: Yes normal visual inspection and Yes no meningeal signs <APT Hoskins - Last Filed: 12/29/22 16:58> Resp: Effort & Inspection: normal respiratory effort and no respiratory distress <PAT Hoskins - Last Filed: 12/29/22 16:58> Auscultation: crackles bilateral at the base and diminished lung sounds bilateral throughout <Aurea Pouliot, PA - Last Filed: 12/29/22 16:58> Cardio: Rate: regular rate <Aurea Poultruongt, PA - Last Filed: 12/29/22 16:58> Heart sounds: S1 normal heart sound present and S2 normal heart sound present <Aurea Poultruongt, PA - Last Filed: 12/29/22 16:58> GI: Inspection: Yes normal to inspection <Aurea Poultruongt, PA - Last Filed: 12/29/22 16:58> Palpation (GI): Soft to palpation, nontender, no guarding and not rigid <Aurea Pouliot, PA - Last Filed: 12/29/22 16:58> : General: Yes no CVA tenderness <Aurea Poultruongt, PA - Last Filed: 12/29/22 16:58> Back/Spine/Pelvis: Back: no CVA tenderness <Aurea Pouliot, PA - Last Filed: 12/29/22 16:58> Skin: Rashes: no rashes <Aurea Poultruongt, PA - Last Filed: 12/29/22 16:58> Wounds: no wounds <Aurea Pouliot, PA - Last Filed: 12/29/22 16:58> Neuro: General: patient oriented x3, tone normal and no meningeal signs <Aurea Poultruongt, PA - Last Filed: 12/29/22 16:58> Gait exam (Neuro): Normal gait present <Aurea Poultruongt PA - Last Filed: 12/29/22 16:58> Extrem: General: Yes normal to inspection, Yes no pedal edema and Yes no calf tenderness <Aurea Poultruongt, PA - Last Filed: 12/29/22 16:58> Course Course Course Narrative: This is an RME: Additional HPI, ROS, PE not included below will be deferred to primary provider. Patient is a 32 year old female with past medical history of asthma and epilepsy. presenting to emergency department for evaluation of upper respiratory symptoms. Received call from patient's PCP who reported the following; patient was seen in the ED 4 days ago 12/25/2022 with upper respiratory symptoms, had negative COVID and influenza testing, she has been experiencing fever 102, O2 saturation at 92% on room air, tachypnea. She reports at this time feeling progressively worse, has been taking prednisone, Augmentin without any significant improvement.. PE: Tachycardic 115, O2 saturation on room air 91% placed on O2 via NC at 2L, appears fatigued, LS with rales bilaterally Plan: labs, EKG, viral testing, CXR, will obtain blood cultures and lactic acid as she is meeting SIRS criteria, pharmacist in charge made aware, placed back in waiting room pending bed availability <Radha Quintero CNP - Last Filed: 12/29/22 13:44> This is an RME: Additional HPI, ROS, PE not included below will be deferred to primary provider. Patient is a 32 year old female with past medical history of asthma and epilepsy. presenting to emergency department for evaluation of upper respiratory symptoms. Received call from patient's PCP who reported the following; patient was seen in the ED 4 days ago 12/25/2022 with upper respiratory symptoms, had negative COVID and influenza testing, she has been experiencing fever 102, O2 saturation at 92% on room air, tachypnea. She reports at this time feeling progressively worse, has been taking prednisone, Augmentin without any significant improvement.. PE: Tachycardic 115, O2 saturation on room air 91% placed on O2 via NC at 2L, appears fatigued, LS with rales bilaterally Plan: labs, EKG, viral testing, CXR, will obtain blood cultures and lactic acid as she is meeting SIRS criteria, pharmacist in charge made aware, placed back in waiting room pending bed availability -[id number]--no leukocytosis. H&H stable. Lactic acid elevated to 3.7. AST/ALT elevated. UA negative XR chest 2V IMPRESSION: No dense consolidation. Bronchial wall thickening can be seen with a small airways process such as asthma or atypical/viral infection >> due to patient's hypoxia will obtain PE study. Patient allergic to contrast will pre treat with Solu-Medrol/Benadryl -patient positive for human metapneumovirus 1646--CT angio chest PE protocol IMPRESSION: 1.? No central or segmental pulmonary emboli. 2.? Patchy groundglass opacities in the left upper lobe could be infectious or inflammatory. 3.? Hepatic steatosis. VTE: negative > plan to admit patient for further management. Repeat lactic 3.8 > will continue IVF and repeat. <Aurea Levine PA - Last Filed: 12/29/22 16:58> Medications Administered Discontinued Medications Generic Name Dose Route Start Last Admin Trade Name Freq PRN Reason Stop Dose Admin Acetaminophen 975 mg 12/29/22 11:36 12/29/22 11:42 Acetaminophen 325 Mg Tablet PO 12/29/22 11:37 975 mg ONCE ONE Administration Albuterol Sulfate 5 mg/ 0 mg 12/29/22 15:35 12/29/22 16:18 Ipratropium [place] 0.5 mg INHALE 12/29/22 15:36 2.5 each ONCE ONE Administration Diphenhydramine HCl 50 mg 12/29/22 14:24 12/29/22 14:29 Diphenhydramine Hcl 50 Mg/Ml Vial IVPUSH 12/29/22 14:25 50 mg ONCE ONE Administration Sodium Chloride 1,000 mls @ 999 mls/hr 12/29/22 14:00 12/29/22 15:29 Ns IV 12/29/22 15:00 Infused .Q1H1M NAVEEN Infusion Ceftriaxone Sodium 1 gm/ 50 mls @ 100 mls/hr 12/29/22 13:47 12/29/22 14:29 Sodium Chloride IV 12/29/22 14:16 Infused ONCE ONE Infusion Lactated Ringer's 1,000 mls @ 999 mls/hr 12/29/22 15:45 12/29/22 16:12 Lr IV 12/29/22 16:45 999 mls/hr .Q1H1M NAVEEN Administration Iohexol 100 ml 12/29/22 16:09 12/29/22 16:09 Iohexol 350 Mg/Ml 100 Ml Infus..Btl IV 12/29/22 16:10 65 ml ONCE ONE Administration Methylprednisolone Sodium Succinate 40 mg 12/29/22 14:23 12/29/22 14:29 Methylprednisolone Sod Succ 40 Mg/Ml Vial IVPUSH 12/29/22 14:24 40 mg ONCE ONE Administration <Radha Quintero CNP - Last Filed: 12/29/22 13:44> Medications Administered Discontinued Medications Generic Name Dose Route Start Last Admin Trade Name Freq PRN Reason Stop Dose Admin Acetaminophen 975 mg 12/29/22 11:36 12/29/22 11:42 Acetaminophen 325 Mg Tablet PO 12/29/22 11:37 975 mg ONCE ONE Administration Albuterol Sulfate 5 mg/ 0 mg 12/29/22 15:35 12/29/22 16:18 Ipratropium [place] 0.5 mg INHALE 12/29/22 15:36 2.5 each ONCE ONE Administration Diphenhydramine HCl 50 mg 12/29/22 14:24 12/29/22 14:29 Diphenhydramine Hcl 50 Mg/Ml Vial IVPUSH 12/29/22 14:25 50 mg ONCE ONE Administration Sodium Chloride 1,000 mls @ 999 mls/hr 12/29/22 14:00 12/29/22 15:29 Ns IV 12/29/22 15:00 Infused .Q1H1M NAVEEN Infusion Ceftriaxone Sodium 1 gm/ 50 mls @ 100 mls/hr 12/29/22 13:47 12/29/22 14:29 Sodium Chloride IV 12/29/22 14:16 Infused ONCE ONE Infusion Lactated Ringer's 1,000 mls @ 999 mls/hr 12/29/22 15:45 12/29/22 16:12 Lr IV 12/29/22 16:45 999 mls/hr .Q1H1M NAVEEN Administration Iohexol 100 ml 12/29/22 16:09 12/29/22 16:09 Iohexol 350 Mg/Ml 100 Ml Infus..Btl IV 12/29/22 16:10 65 ml ONCE ONE Administration Methylprednisolone Sodium Succinate 40 mg 12/29/22 14:23 12/29/22 14:29 Methylprednisolone Sod Succ 40 Mg/Ml Vial IVPUSH 12/29/22 14:24 40 mg ONCE ONE Administration <PAT Hoskins - Last Filed: 12/29/22 16:58> Medical Decision Making Medical Decision Making MDM Narrative: 32-year-old female with a past medical history epilepsy on Valproic Acid, psychogenic nonepileptic seizures, recently seen and treated in our ED on 12/25 for pharyngitis discharged on Augmentin and Prednisone, presenting to the ED complaining of fever T-max 102 degrees, persistent productive cough, SOB, chest discomfort worsened with coughing and movement, rhinorrhea, and generalized fatigue/weakness x 2 days. On exam tachycardic, tachypneic, febrile to 100.3, satting 91% on RA > increased 93% on 2L NC. Lungs with diminished breath sounds throughout and crackles bibasilarly, no pedal edema/calf tenderness. Concern for viral syndrome vs pneumonia vs PE. Lower suspicion for intra-abdominal process, DVT, no evidence of [employer] Plan: EKG,Labs, CXR, COVID-19/influenza/RSV testing, Abx Please refer to course for remaining clinical decision making, interpretation of labs/imaging results, and discussions with consultants and/or family members. <PAT Hoskins - Last Filed: 12/29/22 16:58> Differential Diagnosis Differential Diagnoses: The differential diagnosis associated with the presentation includes <PAT Hoskins - Last Filed: 12/29/22 16:58> Admission/Observation Consideration of admission/observation: Escalation of care including admission/observation considered <PAT Hoskins - Last Filed: 12/29/22 16:58> Lab Data MDM Lab Attestation statement: I reviewed the patient's lab results. <PAT Hoskins - Last Filed: 12/29/22 16:58> Result Diagrams: 12/29/22 12:15 12/29/22 12:15 <aRdha Quintero CNP - Last Filed: 12/29/22 13:44> Labs: Lab Results 12/29/22 12/29/22 12/29/22 Range/Units 12:15 12:15 12:15 WBC 7.7 (4.8-10.8) X10*3/uL RBC 3.80 L (4.20-5.50) X10*6/uL Hgb 12.7 (12.0-16.0) g/dl Hct 37.8 (37.0-47.0) % MCV 99.5 H (80.0-98.0) fL MCH 33.4 H (27.0-33.0) pg MCHC 33.6 (31.0-35.0) g/dl RDW 14.0 (11.0-16.0) % Plt Count 289 D (160-400) X10*3/uL MPV 10.5 (9.4-12.3) fL Immature Gran % (Auto) 0.4 (0.0-0.4) % Neut % (Auto) 79.5 H (45-73) % Lymph % (Auto) 15.2 L (20-40) % Garza % (Auto) 4.4 (2-11) % Eos % (Auto) 0.1 (0-4) % Baso % (Auto) 0.4 (0-2) % Lymph # (Auto) 1.2 (1.2-4.9) X10*3/uL Garza # (Auto) 0.3 (0.1-1.2) X10*3/uL Eos # (Auto) 0.0 (0.0-0.4) X10*3/uL Baso # (Auto) 0.0 (0.0-0.2) X10*3/uL Abs Immat Gran (auto) 0.03 (0.00-0.03) X10*3/uL Absolute Neuts (auto) 6.2 (2.0-8.3) x10*3/uL Absolute Nucleated RBC 0.000 (0.0-0.012) X10*3/uL Nucleated RBC % (auto) 0.0 (0.0-0.2) /100WBC PT 12.9 (10.0-13.1) SEC INR 1.1 (0.9-1.1) Sodium 134 L (135-145) mmol/L Potassium 4.5 (3.3-5.1) mmol/L Chloride 97 (96-108) mmol/L Carbon Dioxide 25 (22-29) mmol/L Anion Gap 17 (12-20) BUN 14 (9-16) mg/dL Creatinine 0.70 (0.5-1.4) mg/dL Estim Creat Clear Calc 109.5 Estimated GFR > 60 Random Glucose 203 H (60-115) mg/dL Lactic Acid (0.5-2.0) mmol/L Lactic Acid F/U @ 2Hr (0.5-2.0) mmol/L Calcium 9.2 (8.4-10.2) mg/dL Magnesium 1.8 (1.6-2.6) mg/dL Total Bilirubin 0.6 (0.0-1.0) mg/dL AST 108 H (5-31) U/L ALT 114 H (0-31) U/L Alkaline Phosphatase 67 (39-117) U/L Troponin I High Sens (<3.5-17.0) ng/L B-Natriuretic Peptide (<100) pg/mL Total Protein 8.3 H (6.5-8.0) g/dL Albumin 4.5 (3.5-5.0) g/dL Urine Color Urine Appearance Urine pH (5.0-9.0) Ur Specific [place] (1.005-1.025) Urine Protein (Neg-Trace) mg/dL Urine Glucose (UA) (Negative) mg/dL Urine Ketones (Negative) mg/dL Urine Blood (Negative) Urine Nitrite (Negative) Ur Leukocyte Esterase (Negative) Respiratory Panel [place] Adenovirus (Rapid PCR) (Not Detect.) B.pert (TEM-PCR) (Not Detect.) B.parapertussis DNA PCR (Not Detect.) C. pneumoniae DNA (PCR) (Not Detect.) Coronavirus OC43 (PCR) (Not Detect.) Coronavirus HKU1 (PCR) (Not Detect.) Coronavirus 229E (PCR) (Not Detect.) COVID-19 (TOÑA) (Negative) COVID-19 Clin Com Coronavirus NL63 (PCR) (Not Detect.) Human Metapneumovir PCR (Not Detect.) Influenza Type A (YIN) (Negative) Influenza A (RT-PCR) (Not Detect.) Influenza Type B (YIN) (Negative) Influenza B (RT-PCR) (Not Detect.) Influenza A & B Note M. pneumoniae (PCR) (Not Detect.) Parainfluenza 1 (PCR) (Not Detect.) Parainfluenza 2 (PCR) (Not Detect.) Parainfluenza 3 (PCR) (Not Detect.) Parainfluenza 4 (PCR) (Not Detect.) RSV (PCR) (Not Detect.) Entero/Rhino (PCR) (Not Detect.) SARS-CoV-2 RNA (RT-PCR) (Not Detect.) 12/29/22 12/29/22 12/29/22 Range/Units 12:15 12:15 12:15 WBC (4.8-10.8) X10*3/uL RBC (4.20-5.50) X10*6/uL Hgb (12.0-16.0) g/dl Hct (37.0-47.0) % MCV (80.0-98.0) fL MCH (27.0-33.0) pg MCHC (31.0-35.0) g/dl RDW (11.0-16.0) % Plt Count (160-400) X10*3/uL MPV (9.4-12.3) fL Immature Gran % (Auto) (0.0-0.4) % Neut % (Auto) (45-73) % Lymph % (Auto) (20-40) % Garza % (Auto) (2-11) % Eos % (Auto) (0-4) % Baso % (Auto) (0-2) % Lymph # (Auto) (1.2-4.9) X10*3/uL Garza # (Auto) (0.1-1.2) X10*3/uL Eos # (Auto) (0.0-0.4) X10*3/uL Baso # (Auto) (0.0-0.2) X10*3/uL Abs Immat Gran (auto) (0.00-0.03) X10*3/uL Absolute Neuts (auto) (2.0-8.3) x10*3/uL Absolute Nucleated RBC (0.0-0.012) X10*3/uL Nucleated RBC % (auto) (0.0-0.2) /100WBC PT (10.0-13.1) SEC INR (0.9-1.1) Sodium (135-145) mmol/L Potassium (3.3-5.1) mmol/L Chloride (96-108) mmol/L Carbon Dioxide (22-29) mmol/L Anion Gap (12-20) BUN (9-16) mg/dL Creatinine (0.5-1.4) mg/dL Estim Creat Clear Calc Estimated GFR Random Glucose (60-115) mg/dL Lactic Acid 3.7 H* (0.5-2.0) mmol/L Lactic Acid F/U @ 2Hr (0.5-2.0) mmol/L Calcium (8.4-10.2) mg/dL Magnesium (1.6-2.6) mg/dL Total Bilirubin (0.0-1.0) mg/dL AST (5-31) U/L ALT (0-31) U/L Alkaline Phosphatase (39-117) U/L Troponin I High Sens (<3.5-17.0) ng/L B-Natriuretic Peptide < 10 (<100) pg/mL Total Protein (6.5-8.0) g/dL Albumin (3.5-5.0) g/dL Urine Color Urine Appearance Urine pH (5.0-9.0) Ur Specific [place] (1.005-1.025) Urine Protein (Neg-Trace) mg/dL Urine Glucose (UA) (Negative) mg/dL Urine Ketones (Negative) mg/dL Urine Blood (Negative) Urine Nitrite (Negative) Ur Leukocyte Esterase (Negative) Respiratory Panel [place] Adenovirus (Rapid PCR) (Not Detect.) B.pert (TEM-PCR) (Not Detect.) B.parapertussis DNA PCR (Not Detect.) C. pneumoniae DNA (PCR) (Not Detect.) Coronavirus OC43 (PCR) (Not Detect.) Coronavirus HKU1 (PCR) (Not Detect.) Coronavirus 229E (PCR) (Not Detect.) COVID-19 (TOÑA) Negative (Negative) COVID-19 Clin Com See Note Coronavirus NL63 (PCR) (Not Detect.) Human Metapneumovir PCR (Not Detect.) Influenza Type A (YIN) (Negative) Influenza A (RT-PCR) (Not Detect.) Influenza Type B (YIN) (Negative) Influenza B (RT-PCR) (Not Detect.) Influenza A & B Note M. pneumoniae (PCR) (Not Detect.) Parainfluenza 1 (PCR) (Not Detect.) Parainfluenza 2 (PCR) (Not Detect.) Parainfluenza 3 (PCR) (Not Detect.) Parainfluenza 4 (PCR) (Not Detect.) RSV (PCR) (Not Detect.) Entero/Rhino (PCR) (Not Detect.) SARS-CoV-2 RNA (RT-PCR) (Not Detect.) 12/29/22 12/29/22 12/29/22 Range/Units 12:15 13:56 14:13 WBC (4.8-10.8) X10*3/uL RBC (4.20-5.50) X10*6/uL Hgb (12.0-16.0) g/dl Hct (37.0-47.0) % MCV (80.0-98.0) fL MCH (27.0-33.0) pg MCHC (31.0-35.0) g/dl RDW (11.0-16.0) % Plt Count (160-400) X10*3/uL MPV (9.4-12.3) fL Immature Gran % (Auto) (0.0-0.4) % Neut % (Auto) (45-73) % Lymph % (Auto) (20-40) % Garza % (Auto) (2-11) % Eos % (Auto) (0-4) % Baso % (Auto) (0-2) % Lymph # (Auto) (1.2-4.9) X10*3/uL Garza # (Auto) (0.1-1.2) X10*3/uL Eos # (Auto) (0.0-0.4) X10*3/uL Baso # (Auto) (0.0-0.2) X10*3/uL Abs Immat Gran (auto) (0.00-0.03) X10*3/uL Absolute Neuts (auto) (2.0-8.3) x10*3/uL Absolute Nucleated RBC (0.0-0.012) X10*3/uL Nucleated RBC % (auto) (0.0-0.2) /100WBC PT (10.0-13.1) SEC INR (0.9-1.1) Sodium (135-145) mmol/L Potassium (3.3-5.1) mmol/L Chloride (96-108) mmol/L Carbon Dioxide (22-29) mmol/L Anion Gap (12-20) BUN (9-16) mg/dL Creatinine (0.5-1.4) mg/dL Estim Creat Clear Calc Estimated GFR Random Glucose (60-115) mg/dL Lactic Acid (0.5-2.0) mmol/L Lactic Acid F/U @ 2Hr (0.5-2.0) mmol/L Calcium (8.4-10.2) mg/dL Magnesium (1.6-2.6) mg/dL Total Bilirubin (0.0-1.0) mg/dL AST (5-31) U/L ALT (0-31) U/L Alkaline Phosphatase (39-117) U/L Troponin I High Sens (<3.5-17.0) ng/L B-Natriuretic Peptide (<100) pg/mL Total Protein (6.5-8.0) g/dL Albumin (3.5-5.0) g/dL Urine Color Yellow Urine Appearance Clear Urine pH 5.5 (5.0-9.0) Ur Specific [place] 1.015 (1.005-1.025) Urine Protein Negative (Neg-Trace) mg/dL Urine Glucose (UA) Negative (Negative) mg/dL Urine Ketones Trace (Negative) mg/dL Urine Blood Negative (Negative) Urine Nitrite Negative (Negative) Ur Leukocyte Esterase Negative (Negative) Respiratory Panel Richardson See Note Adenovirus (Rapid PCR) Not Detected (Not Detect.) B.pert (TEM-PCR) Not Detected (Not Detect.) B.parapertussis DNA PCR Not Detected (Not Detect.) C. pneumoniae DNA (PCR) Not Detected (Not Detect.) Coronavirus OC43 (PCR) Not Detected (Not Detect.) Coronavirus HKU1 (PCR) Not Detected (Not Detect.) Coronavirus 229E (PCR) Not Detected (Not Detect.) COVID-19 (TOÑA) (Negative) COVID-19 Clin Com Coronavirus NL63 (PCR) Not Detected (Not Detect.) Human Metapneumovir PCR Detected A (Not Detect.) Influenza Type A (YIN) Negative (Negative) Influenza A (RT-PCR) Not Detected (Not Detect.) Influenza Type B (YIN) Negative (Negative) Influenza B (RT-PCR) Not Detected (Not Detect.) Influenza A & B Note See Note M. pneumoniae (PCR) Not Detected (Not Detect.) Parainfluenza 1 (PCR) Not Detected (Not Detect.) Parainfluenza 2 (PCR) Not Detected (Not Detect.) Parainfluenza 3 (PCR) Not Detected (Not Detect.) Parainfluenza 4 (PCR) Not Detected (Not Detect.) RSV (PCR) Not Detected (Not Detect.) Entero/Rhino (PCR) Not Detected (Not Detect.) SARS-CoV-2 RNA (RT-PCR) Not Detected (Not Detect.) 12/29/22 12/29/22 Range/Units 16:17 16:17 WBC (4.8-10.8) X10*3/uL RBC (4.20-5.50) X10*6/uL Hgb (12.0-16.0) g/dl Hct (37.0-47.0) % MCV (80.0-98.0) fL MCH (27.0-33.0) pg MCHC (31.0-35.0) g/dl RDW (11.0-16.0) % Plt Count (160-400) X10*3/uL MPV (9.4-12.3) fL Immature Gran % (Auto) (0.0-0.4) % Neut % (Auto) (45-73) % Lymph % (Auto) (20-40) % Garza % (Auto) (2-11) % Eos % (Auto) (0-4) % Baso % (Auto) (0-2) % Lymph # (Auto) (1.2-4.9) X10*3/uL Garza # (Auto) (0.1-1.2) X10*3/uL Eos # (Auto) (0.0-0.4) X10*3/uL Baso # (Auto) (0.0-0.2) X10*3/uL Abs Immat Gran (auto) (0.00-0.03) X10*3/uL Absolute Neuts (auto) (2.0-8.3) x10*3/uL Absolute Nucleated RBC (0.0-0.012) X10*3/uL Nucleated RBC % (auto) (0.0-0.2) /100WBC PT (10.0-13.1) SEC INR (0.9-1.1) Sodium (135-145) mmol/L Potassium (3.3-5.1) mmol/L Chloride (96-108) mmol/L Carbon Dioxide (22-29) mmol/L Anion Gap (12-20) BUN (9-16) mg/dL Creatinine (0.5-1.4) mg/dL Estim Creat Clear Calc Estimated GFR Random Glucose (60-115) mg/dL Lactic Acid (0.5-2.0) mmol/L Lactic Acid F/U @ 2Hr 3.8 H* (0.5-2.0) mmol/L Calcium (8.4-10.2) mg/dL Magnesium (1.6-2.6) mg/dL Total Bilirubin (0.0-1.0) mg/dL AST (5-31) U/L ALT (0-31) U/L Alkaline Phosphatase (39-117) U/L Troponin I High Sens < 3.5 (<3.5-17.0) ng/L B-Natriuretic Peptide (<100) pg/mL Total Protein (6.5-8.0) g/dL Albumin (3.5-5.0) g/dL Urine Color Urine Appearance Urine pH (5.0-9.0) Ur Specific [place] (1.005-1.025) Urine Protein (Neg-Trace) mg/dL Urine Glucose (UA) (Negative) mg/dL Urine Ketones (Negative) mg/dL Urine Blood (Negative) Urine Nitrite (Negative) Ur Leukocyte Esterase (Negative) Respiratory Panel Richardson Adenovirus (Rapid PCR) (Not Detect.) B.pert (TEM-PCR) (Not Detect.) B.parapertussis DNA PCR (Not Detect.) C. pneumoniae DNA (PCR) (Not Detect.) Coronavirus OC43 (PCR) (Not Detect.) Coronavirus HKU1 (PCR) (Not Detect.) Coronavirus 229E (PCR) (Not Detect.) COVID-19 (TOÑA) (Negative) COVID-19 Clin Com Coronavirus NL63 (PCR) (Not Detect.) Human Metapneumovir PCR (Not Detect.) Influenza Type A (YIN) (Negative) Influenza A (RT-PCR) (Not Detect.) Influenza Type B (YIN) (Negative) Influenza B (RT-PCR) (Not Detect.) Influenza A & B Note M. pneumoniae (PCR) (Not Detect.) Parainfluenza 1 (PCR) (Not Detect.) Parainfluenza 2 (PCR) (Not Detect.) Parainfluenza 3 (PCR) (Not Detect.) Parainfluenza 4 (PCR) (Not Detect.) RSV (PCR) (Not Detect.) Entero/Rhino (PCR) (Not Detect.) SARS-CoV-2 RNA (RT-PCR) (Not Detect.) <Radha Keirylatonia Quintero, GEOGRAPHIC INFORMATION SYSTEMS ENGINEER - Last Filed: 12/29/22 13:44> Lab Results 12/29/22 12/29/22 12/29/22 Range/Units 12:15 12:15 12:15 WBC 7.7 (4.8-10.8) X10*3/uL RBC 3.80 L (4.20-5.50) X10*6/uL Hgb 12.7 (12.0-16.0) g/dl Hct 37.8 (37.0-47.0) % MCV 99.5 H (80.0-98.0) fL MCH 33.4 H (27.0-33.0) pg MCHC 33.6 (31.0-35.0) g/dl RDW 14.0 (11.0-16.0) % Plt Count 289 D (160-400) X10*3/uL MPV 10.5 (9.4-12.3) fL Immature Gran % (Auto) 0.4 (0.0-0.4) % Neut % (Auto) 79.5 H (45-73) % Lymph % (Auto) 15.2 L (20-40) % Garza % (Auto) 4.4 (2-11) % Eos % (Auto) 0.1 (0-4) % Baso % (Auto) 0.4 (0-2) % Lymph # (Auto) 1.2 (1.2-4.9) X10*3/uL Garza # (Auto) 0.3 (0.1-1.2) X10*3/uL Eos # (Auto) 0.0 (0.0-0.4) X10*3/uL Baso # (Auto) 0.0 (0.0-0.2) X10*3/uL Abs Immat Gran (auto) 0.03 (0.00-0.03) X10*3/uL Absolute Neuts (auto) 6.2 (2.0-8.3) x10*3/uL Absolute Nucleated RBC 0.000 (0.0-0.012) X10*3/uL Nucleated RBC % (auto) 0.0 (0.0-0.2) /100WBC PT 12.9 (10.0-13.1) SEC INR 1.1 (0.9-1.1) Sodium 134 L (135-145) mmol/L Potassium 4.5 (3.3-5.1) mmol/L Chloride 97 (96-108) mmol/L Carbon Dioxide 25 (22-29) mmol/L Anion Gap 17 (12-20) BUN 14 (9-16) mg/dL Creatinine 0.70 (0.5-1.4) mg/dL Estim Creat Clear Calc 109.5 Estimated GFR > 60 Random Glucose 203 H (60-115) mg/dL Lactic Acid (0.5-2.0) mmol/L Lactic Acid F/U @ 2Hr (0.5-2.0) mmol/L Calcium 9.2 (8.4-10.2) mg/dL Magnesium 1.8 (1.6-2.6) mg/dL Total Bilirubin 0.6 (0.0-1.0) mg/dL AST 108 H (5-31) U/L ALT 114 H (0-31) U/L Alkaline Phosphatase 67 (39-117) U/L Troponin I High Sens (<3.5-17.0) ng/L B-Natriuretic Peptide (<100) pg/mL Total Protein 8.3 H (6.5-8.0) g/dL Albumin 4.5 (3.5-5.0) g/dL Urine Color Urine Appearance Urine pH (5.0-9.0) Ur Specific [place] (1.005-1.025) Urine Protein (Neg-Trace) mg/dL Urine Glucose (UA) (Negative) mg/dL Urine Ketones (Negative) mg/dL Urine Blood (Negative) Urine Nitrite (Negative) Ur Leukocyte Esterase (Negative) Respiratory Panel [place] Adenovirus (Rapid PCR) (Not Detect.) B.pert (TEM-PCR) (Not Detect.) B.parapertussis DNA PCR (Not Detect.) C. pneumoniae DNA (PCR) (Not Detect.) Coronavirus OC43 (PCR) (Not Detect.) Coronavirus HKU1 (PCR) (Not Detect.) Coronavirus 229E (PCR) (Not Detect.) COVID-19 (TOÑA) (Negative) COVID-19 Clin Com Coronavirus NL63 (PCR) (Not Detect.) Human Metapneumovir PCR (Not Detect.) Influenza Type A (YIN) (Negative) Influenza A (RT-PCR) (Not Detect.) Influenza Type B (YIN) (Negative) Influenza B (RT-PCR) (Not Detect.) Influenza A & B Note M. pneumoniae (PCR) (Not Detect.) Parainfluenza 1 (PCR) (Not Detect.) Parainfluenza 2 (PCR) (Not Detect.) Parainfluenza 3 (PCR) (Not Detect.) Parainfluenza 4 (PCR) (Not Detect.) RSV (PCR) (Not Detect.) Entero/Rhino (PCR) (Not Detect.) SARS-CoV-2 RNA (RT-PCR) (Not Detect.) 12/29/22 12/29/22 12/29/22 Range/Units 12:15 12:15 12:15 WBC (4.8-10.8) X10*3/uL RBC (4.20-5.50) X10*6/uL Hgb (12.0-16.0) g/dl Hct (37.0-47.0) % MCV (80.0-98.0) fL MCH (27.0-33.0) pg MCHC (31.0-35.0) g/dl RDW (11.0-16.0) % Plt Count (160-400) X10*3/uL MPV (9.4-12.3) fL Immature Gran % (Auto) (0.0-0.4) % Neut % (Auto) (45-73) % Lymph % (Auto) (20-40) % Garza % (Auto) (2-11) % Eos % (Auto) (0-4) % Baso % (Auto) (0-2) % Lymph # (Auto) (1.2-4.9) X10*3/uL [place] # (Auto) (0.1-1.2) X10*3/uL Eos # (Auto) (0.0-0.4) X10*3/uL Baso # (Auto) (0.0-0.2) X10*3/uL Abs Immat Gran (auto) (0.00-0.03) X10*3/uL Absolute Neuts (auto) (2.0-8.3) x10*3/uL Absolute Nucleated RBC (0.0-0.012) X10*3/uL Nucleated RBC % (auto) (0.0-0.2) /100WBC PT (10.0-13.1) SEC INR (0.9-1.1) Sodium (135-145) mmol/L Potassium (3.3-5.1) mmol/L Chloride (96-108) mmol/L Carbon Dioxide (22-29) mmol/L Anion Gap (12-20) BUN (9-16) mg/dL Creatinine (0.5-1.4) mg/dL Estim Creat Clear Calc Estimated GFR Random Glucose (60-115) mg/dL Lactic Acid 3.7 H* (0.5-2.0) mmol/L Lactic Acid F/U @ 2Hr (0.5-2.0) mmol/L Calcium (8.4-10.2) mg/dL Magnesium (1.6-2.6) mg/dL Total Bilirubin (0.0-1.0) mg/dL AST (5-31) U/L ALT (0-31) U/L Alkaline Phosphatase (39-117) U/L Troponin I High Sens (<3.5-17.0) ng/L B-Natriuretic Peptide < 10 (<100) pg/mL Total Protein (6.5-8.0) g/dL Albumin (3.5-5.0) g/dL Urine Color Urine Appearance Urine pH (5.0-9.0) Ur Specific [place] (1.005-1.025) Urine Protein (Neg-Trace) mg/dL Urine Glucose (UA) (Negative) mg/dL Urine Ketones (Negative) mg/dL Urine Blood (Negative) Urine Nitrite (Negative) Ur Leukocyte Esterase (Negative) Respiratory Panel [place] Adenovirus (Rapid PCR) (Not Detect.) B.pert (TEM-PCR) (Not Detect.) B.parapertussis DNA PCR (Not Detect.) C. pneumoniae DNA (PCR) (Not Detect.) Coronavirus OC43 (PCR) (Not Detect.) Coronavirus HKU1 (PCR) (Not Detect.) Coronavirus 229E (PCR) (Not Detect.) COVID-19 (TOÑA) Negative (Negative) COVID-19 Clin Com See Note Coronavirus NL63 (PCR) (Not Detect.) Human Metapneumovir PCR (Not Detect.) Influenza Type A (YIN) (Negative) Influenza A (RT-PCR) (Not Detect.) Influenza Type B (YIN) (Negative) Influenza B (RT-PCR) (Not Detect.) Influenza A & B Note M. pneumoniae (PCR) (Not Detect.) Parainfluenza 1 (PCR) (Not Detect.) Parainfluenza 2 (PCR) (Not Detect.) Parainfluenza 3 (PCR) (Not Detect.) Parainfluenza 4 (PCR) (Not Detect.) RSV (PCR) (Not Detect.) Entero/Rhino (PCR) (Not Detect.) SARS-CoV-2 RNA (RT-PCR) (Not Detect.) 12/29/22 12/29/22 12/29/22 Range/Units 12:15 13:56 14:13 WBC (4.8-10.8) X10*3/uL RBC (4.20-5.50) X10*6/uL Hgb (12.0-16.0) g/dl Hct (37.0-47.0) % MCV (80.0-98.0) fL MCH (27.0-33.0) pg MCHC (31.0-35.0) g/dl RDW (11.0-16.0) % Plt Count (160-400) X10*3/uL MPV (9.4-12.3) fL Immature Gran % (Auto) (0.0-0.4) % Neut % (Auto) (45-73) % Lymph % (Auto) (20-40) % Garza % (Auto) (2-11) % Eos % (Auto) (0-4) % Baso % (Auto) (0-2) % Lymph # (Auto) (1.2-4.9) X10*3/uL [place] # (Auto) (0.1-1.2) X10*3/uL Eos # (Auto) (0.0-0.4) X10*3/uL Baso # (Auto) (0.0-0.2) X10*3/uL Abs Immat Gran (auto) (0.00-0.03) X10*3/uL Absolute Neuts (auto) (2.0-8.3) x10*3/uL Absolute Nucleated RBC (0.0-0.012) X10*3/uL Nucleated RBC % (auto) (0.0-0.2) /100WBC PT (10.0-13.1) SEC INR (0.9-1.1) Sodium (135-145) mmol/L Potassium (3.3-5.1) mmol/L Chloride (96-108) mmol/L Carbon Dioxide (22-29) mmol/L Anion Gap (12-20) BUN (9-16) mg/dL Creatinine (0.5-1.4) mg/dL Estim Creat Clear Calc Estimated GFR Random Glucose (60-115) mg/dL Lactic Acid (0.5-2.0) mmol/L Lactic Acid F/U @ 2Hr (0.5-2.0) mmol/L Calcium (8.4-10.2) mg/dL Magnesium (1.6-2.6) mg/dL Total Bilirubin (0.0-1.0) mg/dL AST (5-31) U/L ALT (0-31) U/L Alkaline Phosphatase (39-117) U/L Troponin I High Sens (<3.5-17.0) ng/L B-Natriuretic Peptide (<100) pg/mL Total Protein (6.5-8.0) g/dL Albumin (3.5-5.0) g/dL Urine Color Yellow Urine Appearance Clear Urine pH 5.5 (5.0-9.0) Ur Specific [place] 1.015 (1.005-1.025) Urine Protein Negative (Neg-Trace) mg/dL Urine Glucose (UA) Negative (Negative) mg/dL Urine Ketones Trace (Negative) mg/dL Urine Blood Negative (Negative) Urine Nitrite Negative (Negative) Ur Leukocyte Esterase Negative (Negative) Respiratory Panel Richardson See Note Adenovirus (Rapid PCR) Not Detected (Not Detect.) B.pert (TEM-PCR) Not Detected (Not Detect.) B.parapertussis DNA PCR Not Detected (Not Detect.) C. pneumoniae DNA (PCR) Not Detected (Not Detect.) Coronavirus OC43 (PCR) Not Detected (Not Detect.) Coronavirus HKU1 (PCR) Not Detected (Not Detect.) Coronavirus 229E (PCR) Not Detected (Not Detect.) COVID-19 (TOÑA) (Negative) COVID-19 Clin Com Coronavirus NL63 (PCR) Not Detected (Not Detect.) Human Metapneumovir PCR Detected A (Not Detect.) Influenza Type A (YIN) Negative (Negative) Influenza A (RT-PCR) Not Detected (Not Detect.) Influenza Type B (YIN) Negative (Negative) Influenza B (RT-PCR) Not Detected (Not Detect.) Influenza A & B Note See Note M. pneumoniae (PCR) Not Detected (Not Detect.) Parainfluenza 1 (PCR) Not Detected (Not Detect.) Parainfluenza 2 (PCR) Not Detected (Not Detect.) Parainfluenza 3 (PCR) Not Detected (Not Detect.) Parainfluenza 4 (PCR) Not Detected (Not Detect.) RSV (PCR) Not Detected (Not Detect.) Entero/Rhino (PCR) Not Detected (Not Detect.) SARS-CoV-2 RNA (RT-PCR) Not Detected (Not Detect.) 12/29/22 12/29/22 Range/Units 16:17 16:17 WBC (4.8-10.8) X10*3/uL RBC (4.20-5.50) X10*6/uL Hgb (12.0-16.0) g/dl Hct (37.0-47.0) % MCV (80.0-98.0) fL MCH (27.0-33.0) pg MCHC (31.0-35.0) g/dl RDW (11.0-16.0) % Plt Count (160-400) X10*3/uL MPV (9.4-12.3) fL Immature Gran % (Auto) (0.0-0.4) % Neut % (Auto) (45-73) % Lymph % (Auto) (20-40) % Garza % (Auto) (2-11) % Eos % (Auto) (0-4) % Baso % (Auto) (0-2) % Lymph # (Auto) (1.2-4.9) X10*3/uL Garza # (Auto) (0.1-1.2) X10*3/uL Eos # (Auto) (0.0-0.4) X10*3/uL Baso # (Auto) (0.0-0.2) X10*3/uL Abs Immat Gran (auto) (0.00-0.03) X10*3/uL Absolute Neuts (auto) (2.0-8.3) x10*3/uL Absolute Nucleated RBC (0.0-0.012) X10*3/uL Nucleated RBC % (auto) (0.0-0.2) /100WBC PT (10.0-13.1) SEC INR (0.9-1.1) Sodium (135-145) mmol/L Potassium (3.3-5.1) mmol/L Chloride (96-108) mmol/L Carbon Dioxide (22-29) mmol/L Anion Gap (12-20) BUN (9-16) mg/dL Creatinine (0.5-1.4) mg/dL Estim Creat Clear Calc Estimated GFR Random Glucose (60-115) mg/dL Lactic Acid (0.5-2.0) mmol/L Lactic Acid F/U @ 2Hr 3.8 H* (0.5-2.0) mmol/L Calcium (8.4-10.2) mg/dL Magnesium (1.6-2.6) mg/dL Total Bilirubin (0.0-1.0) mg/dL AST (5-31) U/L ALT (0-31) U/L Alkaline Phosphatase (39-117) U/L Troponin I High Sens < 3.5 (<3.5-17.0) ng/L B-Natriuretic Peptide (<100) pg/mL Total Protein (6.5-8.0) g/dL Albumin (3.5-5.0) g/dL Urine Color Urine Appearance Urine pH (5.0-9.0) Ur Specific [place] (1.005-1.025) Urine Protein (Neg-Trace) mg/dL Urine Glucose (UA) (Negative) mg/dL Urine Ketones (Negative) mg/dL Urine Blood (Negative) Urine Nitrite (Negative) Ur Leukocyte Esterase (Negative) Respiratory Panel Richardson Adenovirus (Rapid PCR) (Not Detect.) B.pert (TEM-PCR) (Not Detect.) B.parapertussis DNA PCR (Not Detect.) C. pneumoniae DNA (PCR) (Not Detect.) Coronavirus OC43 (PCR) (Not Detect.) Coronavirus HKU1 (PCR) (Not Detect.) Coronavirus 229E (PCR) (Not Detect.) COVID-19 (TOÑA) (Negative) COVID-19 Clin Com Coronavirus NL63 (PCR) (Not Detect.) Human Metapneumovir PCR (Not Detect.) Influenza Type A (YIN) (Negative) Influenza A (RT-PCR) (Not Detect.) Influenza Type B (YIN) (Negative) Influenza B (RT-PCR) (Not Detect.) Influenza A & B Note M. pneumoniae (PCR) (Not Detect.) Parainfluenza 1 (PCR) (Not Detect.) Parainfluenza 2 (PCR) (Not Detect.) Parainfluenza 3 (PCR) (Not Detect.) Parainfluenza 4 (PCR) (Not Detect.) RSV (PCR) (Not Detect.) Entero/Rhino (PCR) (Not Detect.) SARS-CoV-2 RNA (RT-PCR) (Not Detect.) <PAT Hoskins Last Filed: 12/29/22 16:58> Independent Interpretation I performed an independent interpretation of an: EKG <PAT Hoskins Last Filed: 12/29/22 16:58> External Record Review External record reviewed: Office record, Outpatient record, Prior outpatient labs, Primary care record and Outside ED record <PAT Hoskins Last Filed: 12/29/22 16:58> Prescription Management I considered prescription management with: Pain Medication, Antiviral and Antibiotic <PAT Hoskins Last Filed: 12/29/22 16:58> Critical Care Time Critical Care Time Critical Care Time: Yes <PAT Hoskins Last Filed: 12/29/22 16:58> Total Critical Care Time: 45 <PAT Hoskins Last Filed: 12/29/22 16:58> Attestation: I have personally provided critical care time exclusive of time spent on separately billable procedures. Time includes review of lab data, radiology results, discussion with consultants, and monitoring for potential decompensation. Intervention performed as documented. <PAT Hoskins Last Filed: 12/29/22 16:58> Discharge Plan Discharge Clinical Impression: Infection due to human metapneumovirus (hMPV), Viral pneumonia, Hypoxia <Radha Quintero CNP - Last Filed: 12/29/22 13:44> Patient Disposition: Admitted As Inpatient <Radha Quintero CNP - Last Filed: 12/29/22 13:44>
--- NOTE | 2022-12-29 11:37 | ECG_ITS ---
Test Reason : CP Blood Pressure : / mmHG Vent. Rate : 098 BPM Atrial Rate : 098 BPM P-R Int : 132 ms QRS Dur : 088 ms QT Int : 320 ms P-R-T Axes : 063 054 020 degrees QTc Int : 408 ms Normal sinus rhythm Normal ECG When compared with ECG of 16-NOV-2022 17:35, No significant change was found Referred By: Radha Quintero Electronically Signed By:GETACHEW ABBOTT MD
[2022-12-29] MEDS: Acetaminophen 325 MG TABLET 975 MG PO (11:42)
[2022-12-29 12:22] LABS: MANUAL DIFF FLAG NO
[2022-12-29 12:26] LABS: Basophils Percent Auto 0.4 % (0-2); Eosinophils Percent Auto 0.1 % (0-4); Hematocrit 37.8 % (37.0-47.0); Hemoglobin 12.7 g/dl (12.0-16.0); Imm Gran Abs Auto 0.03 X10*3/uL (0.00-0.03); Imm Gran Pct Auto 0.4 % (0.0-0.4); Lymphocytes Absolute Auto 1.2 X10*3/uL (1.2-4.9); Lymphocytes Percent Auto 15.2 % (20-40); Mean Corpuscular HGB Conc 33.6 g/dl (31.0-35.0); Mean Corpuscular Hemoglobin 33.4 pg (27.0-33.0); Mean Corpuscular Volume 99.5 fL (80.0-98.0); Mean Platelet Volume 10.5 fL (9.4-12.3); Monocytes Absolute Auto 0.3 X10*3/uL (0.1-1.2); Monocytes Percent Auto 4.4 % (2-11); Neutrophils Absolute Auto 6.2 x10*3/uL (2.0-8.3); Neutrophils Percent Auto 79.5 % (45-73); Platelet Count 289 X10*3/uL (160-400); White Blood Count 7.7 X10*3/uL (4.8-10.8)
[2022-12-29 12:34] LABS: INTERNATIONAL NORM RATIO 1.1 (0.9-1.1); Prothrombin Time 12.9 SEC (10.0-13.1)
[2022-12-29 12:41] LABS: COVID-19 Test Negative (Negative); IDNOW Serial# 16C4AD1C; IDNOW Serial# BCCEAD1C; Influenza A Negative (Negative); Influenza B2 Negative (Negative)
[2022-12-29 12:43] LABS: Lactic Acid 3.7 mmol/L (0.5-2.0)
[2022-12-29 12:46] LABS: Alanine Aminotransferase 114 U/L (0-31); Albumin Level 4.5 g/dL (3.5-5.0); Alkaline Phosphatase 67 U/L (39-117); Anion Gap 17 (12-20); Aspartate Amino Transferase 108 U/L (5-31); Bilirubin Total 0.6 mg/dL (0.0-1.0); Blood Urea Nitrogen 14 mg/dL (9-16); Calcium 9.2 mg/dL (8.4-10.2); Carbon Dioxide 25 mmol/L (22-29); Chloride 97 mmol/L (96-108); Creatinine Clr Calc Pharmacy 109.5; Estimated Glomerular Filt Rate > 60; Glucose Random 203 mg/dL (60-115); Potassium 4.5 mmol/L (3.3-5.1); Sodium 134 mmol/L (135-145); Total Protein 8.3 g/dL (6.5-8.0)
[2022-12-29 12:50] LABS: B Type Natriuretic Peptide < 10 pg/mL (<100)
[2022-12-29] MEDS: 0.9 % Sodium Chloride 1,000 ML 999 ML IV (14:10)
[2022-12-29] MEDS: cefTRIAXone sodium 1 GM in 0.9 % Sodium Chloride 50 ML IV (14:10)
[2022-12-29 14:11] LABS: Magnesium 1.8 mg/dL (1.6-2.6)
[2022-12-29 14:21] LABS: Reflex Lactate? Lactic Acid Added
[2022-12-29 14:25] LABS: Appearance Urine Clear; Color Urine Yellow; Glucose Urine UA Negative (Negative); Leukocyte Esterase Urine Negative (Negative); Nitrite Urine Negative (Negative); PH 5.5 (5.0-9.0); Specific Gravity - Urine 1.015 (1.005-1.025); Urine Blood Negative (Negative); Urine Ketones Trace mg/dL (Negative); Urine Protein Negative (Neg-Trace)
[2022-12-29] MEDS: methylPREDNISolone Sod Succ 40 MG/ML VIAL IVPUSH ×2 (14:29→23:43)
[2022-12-29] MEDS: diphenhydrAMINE HCL 50 MG/ML VIAL IVPUSH (14:29)
[2022-12-29 15:23] LABS: Adenovirus PCR Not Detected (Not Detect.); Bordetella parapertussis PCR Not Detected (Not Detect.); Bordetella pertussis PCR Not Detected (Not Detect.); Chlamydia pneumoniae PCR Not Detected (Not Detect.); Coronavirus 229E PCR Not Detected (Not Detect.); Coronavirus HKU1 PCR Not Detected (Not Detect.); Coronavirus NL63 PCR Not Detected (Not Detect.); Coronavirus OC43 PCR Not Detected (Not Detect.); Human metapneumovirus PCR Detected (Not Detect.); Influenza A PCR Not Detected (Not Detect.); Influenza B PCR Not Detected (Not Detect.); Mycoplasma pneumoniae PCR Not Detected (Not Detect.); Parainfluenza 1 PCR Not Detected (Not Detect.); Parainfluenza 2 PCR Not Detected (Not Detect.); Parainfluenza 3 PCR Not Detected (Not Detect.); Parainfluenza 4 PCR Not Detected (Not Detect.); RSV PCR Not Detected (Not Detect.); Rhino/Enterovirus PCR Not Detected (Not Detect.); SARS-CoV-2 PCR Not Detected (Not Detect.)
[2022-12-29] MEDS: iohexoL 350 MG/ML 100 ML INFUS..BTL IV (16:09)
[2022-12-29] MEDS: Lactated Ringers 1,000 ML 999 ML IV (16:12)
[2022-12-29 16:37] LABS: ~Lactic Acid-LAB USE ONLY 3.8 mmol/L (0.5-2.0)
[2022-12-29 16:51] LABS: Troponin-I High Sensitivity < 3.5 ng/L (<3.5-17.0)
--- NOTE | 2022-12-29 17:41 | PM.IMHP ---
History of Present Illness Date of Service: 12/29/22 Chief Complaint: sob 32F pmh moderate persistent asthma, epileptic and nonepileptic seizures presnted with 3-4 days sob. monie manning seen in ED on 12/25/22 for sore throat, was given augmentin. after that started feeling sob, wheezing, cough, fevers. in ED noted to have bilateral opacities on CTA (no pe), hypoxic, positive for human metapneumovirus Review of Systems Review of Systems: Yes all other systems are reviewed and are negative [facility] Medical History Epilepsy Surgical History Hx of cholecystectomy Social History Alcohol intake: current Alcohol intake frequency: does not drink Patient Tobacco Use Status: Never used Tobacco Smoked in Last 30 Days: No Use of substances other than those prescribed or required for medical reasons: No Advance Directives: No Advance Directives Information Provided: Yes Meds Allergies Allergy/AdvReac Type Severity Reaction Status Date / Time Iodinated Contrast Media Allergy Intermediate Facial Verified 08/21/21 02:05 Swelling clindamycin [CLINDAMYCIN] Allergy Unknown ANAPHYLAXIS Verified 08/21/21 02:05 Active Medications: Current Medications Azithromycin (Azithromycin 500 Mg Tablet) 500 mg PO Q24H [facility] Albuterol Sulfate 2.5 mg/ (Ipratropium [place] 0.5 mg) 0 mg INHALE RQ4H WHILE AWAKE [facility] Methylprednisolone Sodium Succinate (Methylprednisolone Sod Succ 40 Mg/Ml Vial) 40 mg IVPUSH Q12H [facility] Pharmacy Consult (Consult Rx Perform Med Rec) 1 each MISCELLANE ONCE PRN PRN Reason: Consult order Sodium Chloride (0.9 % Sodium Chloride Flush 3 Ml Syringe) 3 ml IVFLUSH QSHIFT [facility] Physical Exam Vital Signs and Narrative: Vital Signs: Last Vital Signs Temp 98.2 F 12/29/22 13:40 Pulse 90 12/29/22 16:10 Resp 22 H 12/29/22 16:10 BP 124/53 L 12/29/22 16:10 Pulse Ox 94 12/29/22 16:10 O2 Del Method 12/29/22 16:10 O2 Flow Rate 2 12/29/22 16:10 BMI result Body Mass Index 34.7 General: AO X 3, sob Resp: wheezing bilateral, accessory muscles used CVS: S1,S2,RRR GI: soft, non tender, non distended Neuro: motor grossly intact, alert Psych: appropriate affect, appropriate insight Results Labs 12/29/22 12:15 12/29/22 12:15 Labs: Laboratory Results - last 24 hr 12/29/22 12/29/22 12/29/22 12:15 12:15 12:15 MCV 99.5 H MCH 33.4 H MCHC 33.6 RDW 14.0 Plt Count 289 D MPV 10.5 Immature Gran % (Auto) 0.4 Neut % (Auto) 79.5 H Lymph % (Auto) 15.2 L [place] % (Auto) 4.4 Eos % (Auto) 0.1 Baso % (Auto) 0.4 Lymph # (Auto) 1.2 [place] # (Auto) 0.3 Eos # (Auto) 0.0 Baso # (Auto) 0.0 Abs Immat Gran (auto) 0.03 Absolute Neuts (auto) 6.2 Absolute Nucleated RBC 0.000 Nucleated RBC % (auto) 0.0 PT 12.9 INR 1.1 Anion Gap 17 Estim Creat Clear Calc 109.5 Estimated GFR > 60 Random Glucose 203 H Lactic Acid Lactic Acid F/U @ 2Hr Calcium 9.2 Magnesium 1.8 Total Bilirubin 0.6 AST 108 H ALT 114 H Alkaline Phosphatase 67 Troponin I High Sens B-Natriuretic Peptide Total Protein 8.3 H Albumin 4.5 Urine Color Urine Appearance Urine pH Ur Specific [place] Urine Protein Urine Glucose (UA) Urine Ketones Urine Blood Urine Nitrite Ur Leukocyte Esterase Respiratory Panel Richardson Adenovirus (Rapid PCR) B.pert (TEM-PCR) B.parapertussis DNA PCR C. pneumoniae DNA (PCR) Coronavirus OC43 (PCR) Coronavirus HKU1 (PCR) Coronavirus 229E (PCR) COVID-19 (TOÑA) COVID-19 Clin Com Coronavirus NL63 (PCR) Human Metapneumovir PCR Influenza Type A (YIN) Influenza A (RT-PCR) Influenza Type B (YIN) Influenza B (RT-PCR) Influenza A & B Note M. pneumoniae (PCR) Parainfluenza 1 (PCR) Parainfluenza 2 (PCR) Parainfluenza 3 (PCR) Parainfluenza 4 (PCR) RSV (PCR) Entero/Rhino (PCR) SARS-CoV-2 RNA (RT-PCR) 12/29/22 12/29/22 12/29/22 12:15 12:15 12:15 MCV MCH MCHC RDW Plt Count MPV Immature Gran % (Auto) Neut % (Auto) Lymph % (Auto) [place] % (Auto) Eos % (Auto) Baso % (Auto) Lymph # (Auto) [place] # (Auto) Eos # (Auto) Baso # (Auto) Abs Immat Gran (auto) Absolute Neuts (auto) Absolute Nucleated RBC Nucleated RBC % (auto) PT INR Anion Gap Estim Creat Clear Calc Estimated GFR Random Glucose Lactic Acid 3.7 H* Lactic Acid F/U @ 2Hr Calcium Magnesium Total Bilirubin AST ALT Alkaline Phosphatase Troponin I High Sens B-Natriuretic Peptide < 10 Total Protein Albumin Urine Color Urine Appearance Urine pH Ur Specific [place] Urine Protein Urine Glucose (UA) Urine Ketones Urine Blood Urine Nitrite Ur Leukocyte Esterase Respiratory Panel [place] Adenovirus (Rapid PCR) B.pert (TEM-PCR) B.parapertussis DNA PCR C. pneumoniae DNA (PCR) Coronavirus OC43 (PCR) Coronavirus HKU1 (PCR) Coronavirus 229E (PCR) COVID-19 (TOÑA) Negative COVID-19 Clin Com See Note Coronavirus NL63 (PCR) Human Metapneumovir PCR Influenza Type A (YIN) Influenza A (RT-PCR) Influenza Type B (YIN) Influenza B (RT-PCR) Influenza A & B Note M. pneumoniae (PCR) Parainfluenza 1 (PCR) Parainfluenza 2 (PCR) Parainfluenza 3 (PCR) Parainfluenza 4 (PCR) RSV (PCR) Entero/Rhino (PCR) SARS-CoV-2 RNA (RT-PCR) 12/29/22 12/29/22 12/29/22 12:15 13:56 14:13 MCV MCH MCHC RDW Plt Count MPV Immature Gran % (Auto) Neut % (Auto) Lymph % (Auto) [place] % (Auto) Eos % (Auto) Baso % (Auto) Lymph # (Auto) [place] # (Auto) Eos # (Auto) Baso # (Auto) Abs Immat Gran (auto) Absolute Neuts (auto) Absolute Nucleated RBC Nucleated RBC % (auto) PT INR Anion Gap Estim Creat Clear Calc Estimated GFR Random Glucose Lactic Acid Lactic Acid F/U @ 2Hr Calcium Magnesium Total Bilirubin AST ALT Alkaline Phosphatase Troponin I High Sens B-Natriuretic Peptide Total Protein Albumin Urine Color Yellow Urine Appearance Clear Urine pH 5.5 Ur Specific [place] 1.015 Urine Protein Negative Urine Glucose (UA) Negative Urine Ketones Trace Urine Blood Negative Urine Nitrite Negative Ur Leukocyte Esterase Negative Respiratory Panel Richardson See Note Adenovirus (Rapid PCR) Not Detected B.pert (TEM-PCR) Not Detected B.parapertussis DNA PCR Not Detected C. pneumoniae DNA (PCR) Not Detected Coronavirus OC43 (PCR) Not Detected Coronavirus HKU1 (PCR) Not Detected Coronavirus 229E (PCR) Not Detected COVID-19 (TOÑA) COVID-19 Clin Com Coronavirus NL63 (PCR) Not Detected Human Metapneumovir PCR Detected A Influenza Type A (YIN) Negative Influenza A (RT-PCR) Not Detected Influenza Type B (YIN) Negative Influenza B (RT-PCR) Not Detected Influenza A & B Note See Note M. pneumoniae (PCR) Not Detected Parainfluenza 1 (PCR) Not Detected Parainfluenza 2 (PCR) Not Detected Parainfluenza 3 (PCR) Not Detected Parainfluenza 4 (PCR) Not Detected RSV (PCR) Not Detected Entero/Rhino (PCR) Not Detected SARS-CoV-2 RNA (RT-PCR) Not Detected 12/29/22 12/29/22 16:17 16:17 MCV MCH MCHC RDW Plt Count MPV Immature Gran % (Auto) Neut % (Auto) Lymph % (Auto) [place] % (Auto) Eos % (Auto) Baso % (Auto) Lymph # (Auto) [place] # (Auto) Eos # (Auto) Baso # (Auto) Abs Immat Gran (auto) Absolute Neuts (auto) Absolute Nucleated RBC Nucleated RBC % (auto) PT INR Anion Gap Estim Creat Clear Calc Estimated GFR Random Glucose Lactic Acid Lactic Acid F/U @ 2Hr 3.8 H* Calcium Magnesium Total Bilirubin AST ALT Alkaline Phosphatase Troponin I High Sens < 3.5 B-Natriuretic Peptide Total Protein Albumin Urine Color Urine Appearance Urine pH Ur Specific [place] Urine Protein Urine Glucose (UA) Urine Ketones Urine Blood Urine Nitrite Ur Leukocyte Esterase Respiratory Panel [place] Adenovirus (Rapid PCR) B.pert (TEM-PCR) B.parapertussis DNA PCR C. pneumoniae DNA (PCR) Coronavirus OC43 (PCR) Coronavirus HKU1 (PCR) Coronavirus 229E (PCR) COVID-19 (TOÑA) COVID-19 Clin Com Coronavirus NL63 (PCR) Human Metapneumovir PCR Influenza Type A (YIN) Influenza A (RT-PCR) Influenza Type B (YIN) Influenza B (RT-PCR) Influenza A & B Note M. pneumoniae (PCR) Parainfluenza 1 (PCR) Parainfluenza 2 (PCR) Parainfluenza 3 (PCR) Parainfluenza 4 (PCR) RSV (PCR) Entero/Rhino (PCR) SARS-CoV-2 RNA (RT-PCR) Imaging Radiologist's Impressions: Impressions Chest X-Ray 12/29/22 12:41 IMPRESSION: No dense consolidation. Bronchial wall thickening can be seen with a small airways process such as asthma or atypical/viral infection. Chest CTA 12/29/22 16:10 IMPRESSION: 1. No central or segmental pulmonary emboli. 2. Patchy groundglass opacities in the left upper lobe could be infectious or inflammatory. 3. Hepatic steatosis. VTE: negative Assessment and Plan (1) Infection due to human metapneumovirus (hMPV): Status: Acute Plan 32F pmh moderate persistent asthma, epileptic and nonepileptic seizures presnted with 3-4 days sob Acute hypoxic respiratory failure secondary to moderate persistent asthma with acute decompensation due to human metapneumovirus complicated by viral sepsis and pneumonia IV Solu-Medrol, bronchodilators, azithromycin No evidence of bacterial pneumonia will hold off on other antibiotics Acute Lactic acidosis due to albuterol, hypoxia, not sepsis Epilepsy Depakote Low risk for DVT, encourage ambulation Full code Patient with decompensation of asthma due to viral pneumonia with significant wheezing and hypoxia there for expected to require at least 2 midnights inpatient Time Spent With Patient Time: Total time managing care of this patient today ____ minutes. Quality Stroke Does the patient have a stroke diagnosis?: No VTE Prior VTE?: No VTE Risk Level:: Medical - low VTE Device Contraindication: Treatment Not Indicated VTE Drug Contraindication: Treatment Not Indicated
--- NOTE | 2022-12-29 17:59 | PHA.MEDREC ---
Pharmacy Consult ? Medication Reconciliation Pharmacy has completed the medication reconciliation. Spoke with pt. She is unsure whether she should keep taking the 3 meds prescribed here on 12/25/22.
[2022-12-29 18:21] LABS: Reflex Lactate? 2 Y
--- NOTE | 2022-12-29 18:30 | PC.NURSE ---
Per Dr Chowdhury no need for further lactic acid. order canceled in system.
[2022-12-29] MEDS: Divalproex Sodium 500 MG TABLET.DR PO (21:08)
[2022-12-29] MEDS: 0.9 % Sodium Chloride Flush 3 ML SYRINGE IVFLUSH (23:43)
[2022-12-30] VITALS (10 sets, daily range): BP systolic 111–137; BP diastolic 48–76; PULSE 66–101; RESP 16–20; TEMP 36.1–36.7; O2SAT 91–96
[2022-12-30 06:37] LABS: Hematocrit 35.8 % (37.0-47.0); Hemoglobin 12.1 g/dl (12.0-16.0); Mean Corpuscular HGB Conc 33.8 g/dl (31.0-35.0); Mean Corpuscular Hemoglobin 33.6 pg (27.0-33.0); Mean Corpuscular Volume 99.4 fL (80.0-98.0); Mean Platelet Volume 10.7 fL (9.4-12.3); Platelet Count 277 X10*3/uL (160-400); Red Cell Distribution Width 13.6 % (11.0-16.0); White Blood Count 5.4 X10*3/uL (4.8-10.8)
[2022-12-30 06:46] LABS: Anion Gap 17 (12-20); Blood Urea Nitrogen 11 mg/dL (9-16); Calcium 9.1 mg/dL (8.4-10.2); Carbon Dioxide 24 mmol/L (22-29); Chloride 101 mmol/L (96-108); Creatinine Clr Calc Pharmacy 118.5; Estimated Glomerular Filt Rate > 60; Glucose Fasting 290 mg/dL (60-99); Magnesium 2.1 mg/dL (1.6-2.6); Potassium 5.1 mmol/L (3.3-5.1); Sodium 137 mmol/L (135-145)
[2022-12-30] MEDS: 0.9 % Sodium Chloride Flush 3 ML SYRINGE IVFLUSH ×3 (09:01→22:25)
[2022-12-30] MEDS: Divalproex Sodium 500 MG TABLET.DR PO ×2 (09:01→21:26)
[2022-12-30] MEDS: Azithromycin 500 MG TABLET PO (09:01)
[2022-12-30] MEDS: guaiFENesin 100 MG/5 ML LIQUID PO ×2 (11:18→15:37)
[2022-12-30] MEDS: methylPREDNISolone Sod Succ 40 MG/ML VIAL IVPUSH (11:18)
--- NOTE | 2022-12-30 11:20 | HO.PM.IMPN ---
Subjective Subjective Date of Service: 12/30/22 Interval History: sob, cough, consitpation Physical Exam Vital Signs: Vital Signs: Last Vital Signs Temp 97.4 F 12/30/22 08:00 Pulse 74 12/30/22 08:22 Resp 16 12/30/22 08:22 BP 111/71 12/30/22 08:00 Pulse Ox 92 12/30/22 08:00 O2 Del Method 12/30/22 04:00 O2 Flow Rate 1 12/30/22 04:00 BMI result Body Mass Index 35.0 General: AO X 3, no acute distress Resp: wheezing bilateral, no accessory muscles used CVS: S1,S2,RRR GI: soft, non tender, non distended Neuro: motor grossly intact, alert Psych: appropriate affect, appropriate insight Objective Data Active Medications Azithromycin (Azithromycin 500 Mg Tablet) 500 mg PO Q24H [facility] Last Admin: 12/30/22 09:01 Dose: 500 mg Documented By: YESENIA Albuterol Sulfate 2.5 mg/ (Ipratropium [place] 0.5 mg) 0 mg INHALE RQ4H WHILE AWAKE [facility] Last Admin: 12/30/22 08:21 Dose: 2.5 each Documented By: SHAI Divalproex Sodium (Divalproex Sodium 500 Mg Tablet.Dr) 500 mg PO BID [facility] Last Admin: 12/30/22 09:01 Dose: 500 mg Documented By: YESENIA Guaifenesin (Guaifenesin 100 Mg/5 Ml Liquid) 5 ml PO Q4H PRN PRN Reason: cough Last Admin: 12/30/22 11:18 Dose: 5 ml Documented By: YESENIA Methylprednisolone Sodium Succinate (Methylprednisolone Sod Succ 40 Mg/Ml Vial) 40 mg IVPUSH Q12H [facility] Last Admin: 12/30/22 11:18 Dose: 40 mg Documented By: YESENIA Pharmacy Consult (Consult Rx Perform Med Rec) 1 each MISCELLANE ONCE PRN PRN Reason: Consult order Polyethylene Glycol (Polyethylene Glycol 3350 17 Gm Powd.Pack) 17 gm PO ONCE ONE Stop: 12/30/22 11:20 Sodium Chloride (0.9 % Sodium Chloride Flush 3 Ml Syringe) 3 ml IVFLUSH QSHIFT [facility] Last Admin: 12/30/22 09:01 Dose: 3 ml Documented By: YESENIA Labs 12/30/22 05:55 12/30/22 05:55 Labs: Laboratory Results - last 24 hr 12/29/22 12/29/22 12/29/22 12:15 12:15 12:15 MCV 99.5 H MCH 33.4 H MCHC 33.6 RDW 14.0 Plt Count 289 D MPV 10.5 Immature Gran % (Auto) 0.4 Neut % (Auto) 79.5 H Lymph % (Auto) 15.2 L [place] % (Auto) 4.4 Eos % (Auto) 0.1 Baso % (Auto) 0.4 Lymph # (Auto) 1.2 [place] # (Auto) 0.3 Eos # (Auto) 0.0 Baso # (Auto) 0.0 Abs Immat Gran (auto) 0.03 Absolute Neuts (auto) 6.2 Absolute Nucleated RBC 0.000 Nucleated RBC % (auto) 0.0 PT 12.9 INR 1.1 Anion Gap 17 Estim Creat Clear Calc 109.5 Estimated GFR > 60 Random Glucose 203 H Fasting Glucose Lactic Acid Lactic Acid F/U @ 2Hr Calcium 9.2 Magnesium 1.8 Total Bilirubin 0.6 AST 108 H ALT 114 H Alkaline Phosphatase 67 Troponin I High Sens B-Natriuretic Peptide Total Protein 8.3 H Albumin 4.5 Urine Color Urine Appearance Urine pH Ur Specific [place] Urine Protein Urine Glucose (UA) Urine Ketones Urine Blood Urine Nitrite Ur Leukocyte Esterase Respiratory Panel [place] Adenovirus (Rapid PCR) B.pert (TEM-PCR) B.parapertussis DNA PCR C. pneumoniae DNA (PCR) Coronavirus OC43 (PCR) Coronavirus HKU1 (PCR) Coronavirus 229E (PCR) COVID-19 (TOÑA) COVID-19 Clin Com Coronavirus NL63 (PCR) Human Metapneumovir PCR Influenza Type A (YIN) Influenza A (RT-PCR) Influenza Type B (YIN) Influenza B (RT-PCR) Influenza A & B Note M. pneumoniae (PCR) Parainfluenza 1 (PCR) Parainfluenza 2 (PCR) Parainfluenza 3 (PCR) Parainfluenza 4 (PCR) RSV (PCR) Entero/Rhino (PCR) SARS-CoV-2 RNA (RT-PCR) 12/29/22 12/29/22 12/29/22 12:15 12:15 12:15 MCV MCH MCHC RDW Plt Count MPV Immature Gran % (Auto) Neut % (Auto) Lymph % (Auto) [place] % (Auto) Eos % (Auto) Baso % (Auto) Lymph # (Auto) [place] # (Auto) Eos # (Auto) Baso # (Auto) Abs Immat Gran (auto) Absolute Neuts (auto) Absolute Nucleated RBC Nucleated RBC % (auto) PT INR Anion Gap Estim Creat Clear Calc Estimated GFR Random Glucose Fasting Glucose Lactic Acid 3.7 H* Lactic Acid F/U @ 2Hr Calcium Magnesium Total Bilirubin AST ALT Alkaline Phosphatase Troponin I High Sens B-Natriuretic Peptide < 10 Total Protein Albumin Urine Color Urine Appearance Urine pH Ur Specific [place] Urine Protein Urine Glucose (UA) Urine Ketones Urine Blood Urine Nitrite Ur Leukocyte Esterase Respiratory Panel [place] Adenovirus (Rapid PCR) B.pert (TEM-PCR) B.parapertussis DNA PCR C. pneumoniae DNA (PCR) Coronavirus OC43 (PCR) Coronavirus HKU1 (PCR) Coronavirus 229E (PCR) COVID-19 (TOÑA) Negative COVID-19 Clin Com See Note Coronavirus NL63 (PCR) Human Metapneumovir PCR Influenza Type A (YIN) Influenza A (RT-PCR) Influenza Type B (YIN) Influenza B (RT-PCR) Influenza A & B Note M. pneumoniae (PCR) Parainfluenza 1 (PCR) Parainfluenza 2 (PCR) Parainfluenza 3 (PCR) Parainfluenza 4 (PCR) RSV (PCR) Entero/Rhino (PCR) SARS-CoV-2 RNA (RT-PCR) 12/29/22 12/29/22 12/29/22 12:15 13:56 14:13 MCV MCH MCHC RDW Plt Count MPV Immature Gran % (Auto) Neut % (Auto) Lymph % (Auto) [place] % (Auto) Eos % (Auto) Baso % (Auto) Lymph # (Auto) [place] # (Auto) Eos # (Auto) Baso # (Auto) Abs Immat Gran (auto) Absolute Neuts (auto) Absolute Nucleated RBC Nucleated RBC % (auto) PT INR Anion Gap Estim Creat Clear Calc Estimated GFR Random Glucose Fasting Glucose Lactic Acid Lactic Acid F/U @ 2Hr Calcium Magnesium Total Bilirubin AST ALT Alkaline Phosphatase Troponin I High Sens B-Natriuretic Peptide Total Protein Albumin Urine Color Yellow Urine Appearance Clear Urine pH 5.5 Ur Specific [place] 1.015 Urine Protein Negative Urine Glucose (UA) Negative Urine Ketones Trace Urine Blood Negative Urine Nitrite Negative Ur Leukocyte Esterase Negative Respiratory Panel [place] See Note Adenovirus (Rapid PCR) Not Detected B.pert (TEM-PCR) Not Detected B.parapertussis DNA PCR Not Detected C. pneumoniae DNA (PCR) Not Detected Coronavirus OC43 (PCR) Not Detected Coronavirus HKU1 (PCR) Not Detected Coronavirus 229E (PCR) Not Detected COVID-19 (TOÑA) COVID-19 Clin Com Coronavirus NL63 (PCR) Not Detected Human Metapneumovir PCR Detected A Influenza Type A (YIN) Negative Influenza A (RT-PCR) Not Detected Influenza Type B (YIN) Negative Influenza B (RT-PCR) Not Detected Influenza A & B Note See Note M. pneumoniae (PCR) Not Detected Parainfluenza 1 (PCR) Not Detected Parainfluenza 2 (PCR) Not Detected Parainfluenza 3 (PCR) Not Detected Parainfluenza 4 (PCR) Not Detected RSV (PCR) Not Detected Entero/Rhino (PCR) Not Detected SARS-CoV-2 RNA (RT-PCR) Not Detected 12/29/22 12/29/22 12/30/22 16:17 16:17 05:55 MCV 99.4 H MCH 33.6 H MCHC 33.8 RDW 13.6 Plt Count 277 MPV 10.7 Immature Gran % (Auto) Neut % (Auto) Lymph % (Auto) [place] % (Auto) Eos % (Auto) Baso % (Auto) Lymph # (Auto) [place] # (Auto) Eos # (Auto) Baso # (Auto) Abs Immat Gran (auto) Absolute Neuts (auto) Absolute Nucleated RBC 0.000 Nucleated RBC % (auto) 0.0 PT INR Anion Gap Estim Creat Clear Calc Estimated GFR Random Glucose Fasting Glucose Lactic Acid Lactic Acid F/U @ 2Hr 3.8 H* Calcium Magnesium Total Bilirubin AST ALT Alkaline Phosphatase Troponin I High Sens < 3.5 B-Natriuretic Peptide Total Protein Albumin Urine Color Urine Appearance Urine pH Ur Specific [place] Urine Protein Urine Glucose (UA) Urine Ketones Urine Blood Urine Nitrite Ur Leukocyte Esterase Respiratory Panel [place] Adenovirus (Rapid PCR) B.pert (TEM-PCR) B.parapertussis DNA PCR C. pneumoniae DNA (PCR) Coronavirus OC43 (PCR) Coronavirus HKU1 (PCR) Coronavirus 229E (PCR) COVID-19 (TOÑA) COVID-19 Clin Com Coronavirus NL63 (PCR) Human Metapneumovir PCR Influenza Type A (YIN) Influenza A (RT-PCR) Influenza Type B (YIN) Influenza B (RT-PCR) Influenza A & B Note M. pneumoniae (PCR) Parainfluenza 1 (PCR) Parainfluenza 2 (PCR) Parainfluenza 3 (PCR) Parainfluenza 4 (PCR) RSV (PCR) Entero/Rhino (PCR) SARS-CoV-2 RNA (RT-PCR) 12/30/22 05:55 MCV MCH MCHC RDW Plt Count MPV Immature Gran % (Auto) Neut % (Auto) Lymph % (Auto) [place] % (Auto) Eos % (Auto) Baso % (Auto) Lymph # (Auto) [place] # (Auto) Eos # (Auto) Baso # (Auto) Abs Immat Gran (auto) Absolute Neuts (auto) Absolute Nucleated RBC Nucleated RBC % (auto) PT INR Anion Gap 17 Estim Creat Clear Calc 118.5 Estimated GFR > 60 Random Glucose Fasting Glucose 290 H Lactic Acid Lactic Acid F/U @ 2Hr Calcium 9.1 Magnesium 2.1 Total Bilirubin AST ALT Alkaline Phosphatase Troponin I High Sens B-Natriuretic Peptide Total Protein Albumin Urine Color Urine Appearance Urine pH Ur Specific [place] Urine Protein Urine Glucose (UA) Urine Ketones Urine Blood Urine Nitrite Ur Leukocyte Esterase Respiratory Panel [place] Adenovirus (Rapid PCR) B.pert (TEM-PCR) B.parapertussis DNA PCR C. pneumoniae DNA (PCR) Coronavirus OC43 (PCR) Coronavirus HKU1 (PCR) Coronavirus 229E (PCR) COVID-19 (TOÑA) COVID-19 Clin Com Coronavirus NL63 (PCR) Human Metapneumovir PCR Influenza Type A (YIN) Influenza A (RT-PCR) Influenza Type B (YIN) Influenza B (RT-PCR) Influenza A & B Note M. pneumoniae (PCR) Parainfluenza 1 (PCR) Parainfluenza 2 (PCR) Parainfluenza 3 (PCR) Parainfluenza 4 (PCR) RSV (PCR) Entero/Rhino (PCR) SARS-CoV-2 RNA (RT-PCR) Assessment and Plan (1) Infection due to human metapneumovirus (hMPV): Status: Acute Plan 32F pmh moderate persistent asthma, epileptic and nonepileptic seizures presnted with 3-4 days sob Acute hypoxic respiratory failure secondary to moderate persistent asthma with acute decompensation due to human metapneumovirus complicated by viral sepsis and pneumonia continue IV Solu-Medrol, bronchodilators, azithromycin No evidence of bacterial pneumonia will hold off on other antibiotics Acute Lactic acidosis due to albuterol, hypoxia, not sepsis wean o2 as tolerated robitussin for cough constipation miralax Epilepsy Depakote Low risk for DVT, encourage ambulation full code reason for continued hospitalization:hypoxia Time Spent With Patient Time: Total time managing care of this patient today ____ minutes. Quality Stroke Does the patient have a stroke diagnosis?: No VTE Prior VTE?: No VTE Risk Level:: Medical - low VTE Device Contraindication: Treatment Not Indicated VTE Drug Contraindication: Treatment Not Indicated
[2022-12-30] MEDS: polyethylene glycoL 3350 17 GM POWD.PACK PO (12:07)
--- NOTE | 2022-12-30 14:17 | MHC.CM.PN ---
CM MET WITH PT AT BEDSIDE. LIVES IN AN APT WITH [facility]. NO PRIOR SERVICES OR DME. EMPLOYED P/T. + HCP +COVID [place] [address] OCHOA. DP: HOME, NO SERVICES ANTICIPATED. [facility] WILL TRANSPORT AT [place]. CM WILL CONTINUE TO FOLLOW
[2022-12-30] MEDS: Ketorolac Tromethamine 30 MG/ML VIAL IVPUSH (22:24)
[2022-12-31] VITALS (9 sets, daily range): BP systolic 105–127; BP diastolic 57–65; PULSE 63–103; RESP 14–18; TEMP 36.1–36.8; O2SAT 93–97
[2022-12-31] MEDS: methylPREDNISolone Sod Succ 40 MG/ML VIAL IVPUSH ×2 (00:41→12:15)
[2022-12-31] MEDS: Azithromycin 500 MG TABLET PO (08:14)
[2022-12-31] MEDS: 0.9 % Sodium Chloride Flush 3 ML SYRINGE IVFLUSH ×3 (08:14→20:29)
[2022-12-31] MEDS: Divalproex Sodium 500 MG TABLET.DR PO ×2 (08:14→20:29)
[2022-12-31 08:24] LABS: Hemoglobin 11.9 g/dl (12.0-16.0); Mean Corpuscular HGB Conc 33.1 g/dl (31.0-35.0); Mean Corpuscular Hemoglobin 32.9 pg (27.0-33.0); Mean Corpuscular Volume 99.4 fL (80.0-98.0); Mean Platelet Volume 10.5 fL (9.4-12.3); Platelet Count 304 X10*3/uL (160-400); Red Blood Count 3.62 X10*6/uL (4.20-5.50); Red Cell Distribution Width 13.6 % (11.0-16.0); White Blood Count 8.9 X10*3/uL (4.8-10.8)
[2022-12-31 08:48] LABS: Anion Gap 16 (12-20); Blood Urea Nitrogen 16 mg/dL (9-16); Calcium 9.4 mg/dL (8.4-10.2); Carbon Dioxide 28 mmol/L (22-29); Chloride 98 mmol/L (96-108); Creatinine Clr Calc Pharmacy 128.4; Estimated Glomerular Filt Rate > 60; Glucose Fasting 278 mg/dL (60-99); Potassium 5.3 mmol/L (3.3-5.1); Sodium 137 mmol/L (135-145)
--- NOTE | 2022-12-31 10:21 | HO.PM.IMPN ---
Subjective Subjective Date of Service: 12/31/22 Interval History: sob, cough, had bm Physical Exam Vital Signs: Vital Signs: Last Vital Signs Temp 98.0 F 12/31/22 07:23 Pulse 74 12/31/22 08:22 Resp 18 12/31/22 08:22 BP 105/57 L 12/31/22 07:23 Pulse Ox 96 12/31/22 07:23 O2 Del Method 12/31/22 07:23 O2 Flow Rate 2 12/31/22 04:00 BMI result Body Mass Index 35.0 General: AO X 3, no acute distress Resp: wheezing bilateral, no accessory muscles used CVS: S1,S2,RRR GI: soft, non tender, non distended Neuro: motor grossly intact, alert Psych: appropriate affect, appropriate insight Objective Data Active Medications Azithromycin (Azithromycin 500 Mg Tablet) 500 mg PO Q24H [facility] Last Admin: 12/31/22 08:14 Dose: 500 mg Documented By: YESENIA Albuterol Sulfate 2.5 mg/ (Ipratropium [place] 0.5 mg) 0 mg INHALE RQ4H WHILE AWAKE [facility] Last Admin: 12/31/22 08:20 Dose: 2.5 each Documented By: SHAI Divalproex Sodium (Divalproex Sodium 500 Mg Tablet.Dr) 500 mg PO BID [facility] Last Admin: 12/31/22 08:14 Dose: 500 mg Documented By: YESENIA Guaifenesin (Guaifenesin 100 Mg/5 Ml Liquid) 5 ml PO Q4H PRN PRN Reason: cough Last Admin: 12/30/22 15:37 Dose: 5 ml Documented By: YESENIA Methylprednisolone Sodium Succinate (Methylprednisolone Sod Succ 40 Mg/Ml Vial) 40 mg IVPUSH Q12H [facility] Last Admin: 12/31/22 00:41 Dose: 40 mg Documented By: MADDI Pharmacy Consult (Consult Rx Perform Med Rec) 1 each MISCELLANE ONCE PRN PRN Reason: Consult order Sodium Chloride (0.9 % Sodium Chloride Flush 3 Ml Syringe) 3 ml IVFLUSH QSHIFT [facility] Last Admin: 12/31/22 08:14 Dose: 3 ml Documented By: YESENIA Labs 12/31/22 07:53 12/31/22 07:53 Labs: Laboratory Results - last 24 hr 12/31/22 12/31/22 07:53 07:53 MCV 99.4 H MCH 32.9 MCHC 33.1 RDW 13.6 Plt Count 304 MPV 10.5 Absolute Nucleated RBC 0.000 Nucleated RBC % (auto) 0.0 Anion Gap 16 Estim Creat Clear Calc 128.4 Estimated GFR > 60 Fasting Glucose 278 H Calcium 9.4 Microbiology Microbiology Results: Microbiology 12/29/22 12:15 Blood Culture - Preliminary Blood - Venous No growth after 24 hours. 12/29/22 12:15 Blood Culture - Preliminary Blood - Venous No growth after 24 hours. Assessment and Plan (1) Infection due to human metapneumovirus (hMPV): Status: Acute Plan 32F pmh moderate persistent asthma, epileptic and nonepileptic seizures presnted with 3-4 days sob Acute hypoxic respiratory failure secondary to moderate persistent asthma with acute decompensation due to human metapneumovirus complicated by viral sepsis and pneumonia continue IV Solu-Medrol, bronchodilators, azithromycin No evidence of bacterial pneumonia will hold off on other antibiotics Acute Lactic acidosis due to albuterol, hypoxia, not sepsis wean o2 as tolerated - still needing on exertion robitussin for cough constipation resolved with miralax Epilepsy Depakote Low risk for DVT, encourage ambulation full code reason for continued hospitalization:hypoxia Time Spent With Patient Time: Total time managing care of this patient today ____ minutes. Quality Stroke Does the patient have a stroke diagnosis?: No VTE Prior VTE?: No VTE Risk Level:: Medical - low VTE Device Contraindication: Treatment Not Indicated VTE Drug Contraindication: Treatment Not Indicated
[2022-12-31] MEDS: SUMAtriptan succinate 25 MG TABLET PO (16:24)
[2022-12-31] MEDS: Ketorolac Tromethamine 30 MG/ML VIAL IVPUSH (21:29)
[2023-01-01] VITALS (11 sets, daily range): BP systolic 100–128; BP diastolic 49–59; PULSE 66–93; RESP 15–20; TEMP 36.3–37; O2SAT 92–98
[2023-01-01] MEDS: methylPREDNISolone Sod Succ 40 MG/ML VIAL IVPUSH (00:30)
[2023-01-01 06:26] LABS: Hematocrit 36.1 % (37.0-47.0); Mean Corpuscular HGB Conc 33.2 g/dl (31.0-35.0); Mean Corpuscular Hemoglobin 33.2 pg (27.0-33.0); Mean Platelet Volume 10.5 fL (9.4-12.3); Platelet Count 336 X10*3/uL (160-400); Red Blood Count 3.61 X10*6/uL (4.20-5.50); Red Cell Distribution Width 13.4 % (11.0-16.0); White Blood Count 10.2 X10*3/uL (4.8-10.8)
[2023-01-01 06:42] LABS: Anion Gap 14 (12-20); Blood Urea Nitrogen 18 mg/dL (9-16); Calcium 9.3 mg/dL (8.4-10.2); Carbon Dioxide 28 mmol/L (22-29); Chloride 98 mmol/L (96-108); Creatinine Clr Calc Pharmacy 124.2; Estimated Glomerular Filt Rate > 60; Glucose Fasting 325 mg/dL (60-99); Potassium 5.1 mmol/L (3.3-5.1); Sodium 135 mmol/L (135-145)
[2023-01-01 07:52] LABS: Estimated Average Glucose 169 mg/dL; Hemoglobin A1c % 7.5 %
[2023-01-01] MEDS: 0.9 % Sodium Chloride Flush 3 ML SYRINGE IVFLUSH ×3 (08:47→21:35)
[2023-01-01] MEDS: Azithromycin 500 MG TABLET PO (08:47)
[2023-01-01] MEDS: Divalproex Sodium 500 MG TABLET.DR PO ×2 (08:47→21:35)
--- NOTE | 2023-01-01 09:20 | HO.PM.IMPN ---
Subjective Subjective Date of Service: 01/01/23 Interval History: still sob, weak Physical Exam Vital Signs: Vital Signs: Last Vital Signs Temp 98.0 F 01/01/23 07:36 Pulse 80 01/01/23 07:51 Resp 18 01/01/23 07:51 BP 100/56 L 01/01/23 07:36 Pulse Ox 96 01/01/23 07:36 O2 Del Method 01/01/23 07:36 O2 Flow Rate 1 01/01/23 07:36 BMI result Body Mass Index 35.0 General: AO X 3, no acute distress Resp: diminished bilateral, no accessory muscles used CVS: S1,S2,RRR GI: soft, non tender, non distended Neuro: motor grossly intact, alert Psych: appropriate affect, appropriate insight Objective Data Active Medications Azithromycin (Azithromycin 500 Mg Tablet) 500 mg PO Q24H [facility] Last Admin: 01/01/23 08:47 Dose: 500 mg Documented By: LAKESHA Albuterol Sulfate 2.5 mg/ (Ipratropium [place] 0.5 mg) 0 mg INHALE RQ4H WHILE AWAKE [facility] Last Admin: 01/01/23 07:48 Dose: 2.5 each Documented By: DELANO Divalproex Sodium (Divalproex Sodium 500 Mg Tablet.Dr) 500 mg PO BID [facility] Last Admin: 01/01/23 08:47 Dose: 500 mg Documented By: LAKESHA Guaifenesin (Guaifenesin 100 Mg/5 Ml Liquid) 5 ml PO Q4H PRN PRN Reason: cough Last Admin: 12/30/22 15:37 Dose: 5 ml Documented By: YESENIA Methylprednisolone Sodium Succinate (Methylprednisolone Sod Succ 40 Mg/Ml Vial) 40 mg IVPUSH Q12H [facility] Last Admin: 01/01/23 00:30 Dose: 40 mg Documented By: BETY Pharmacy Consult (Consult Rx Perform Med Rec) 1 each MISCELLANE ONCE PRN PRN Reason: Consult order Sodium Chloride (0.9 % Sodium Chloride Flush 3 Ml Syringe) 3 ml IVFLUSH QSHIFT [facility] Last Admin: 01/01/23 08:47 Dose: 3 ml Documented By: LAKESHA Sumatriptan Succinate (Sumatriptan Succinate 25 Mg Tablet) 25 mg PO DAILY PRN PRN Reason: migraine Last Admin: 12/31/22 16:24 Dose: 25 mg Documented By: YESENIA Labs 01/01/23 06:18 01/01/23 06:18 Labs: Laboratory Results - last 24 hr 01/01/23 01/01/23 01/01/23 06:18 06:18 06:18 MCV 100.0 H MCH 33.2 H MCHC 33.2 RDW 13.4 Plt Count 336 MPV 10.5 Absolute Nucleated RBC 0.000 Nucleated RBC % (auto) 0.0 Anion Gap 14 Estim Creat Clear Calc 124.2 Estimated GFR > 60 Fasting Glucose 325 H Estimat Average Glucose 169 Hemoglobin A1c % 7.5 Calcium 9.3 Microbiology Microbiology Results: Microbiology 12/29/22 12:15 Blood Culture - Preliminary Blood - Venous No growth after 48 hours. 12/29/22 12:15 Blood Culture - Preliminary Blood - Venous No growth after 48 hours. Assessment and Plan (1) Infection due to human metapneumovirus (hMPV): Status: Acute Plan 32F pmh moderate persistent asthma, epileptic and nonepileptic seizures presnted with 3-4 days sob Acute hypoxic respiratory failure secondary to moderate persistent asthma with acute decompensation due to human metapneumovirus complicated by viral sepsis and pneumonia bronchodilators, azithromycin change iv solumedrol to prednisone 40mg daily No evidence of bacterial pneumonia will hold off on other antibiotics Acute Lactic acidosis due to albuterol, hypoxia, not sepsis robitussin for cough hyperglycemia a1c 7.5, likely new diabetese will start metformin, monitor poc patient education constipation resolved with miralax Epilepsy Depakote Low risk for DVT, encourage ambulation full code reason for continued hospitalization:hypoxia Time Spent With Patient Time: Total time managing care of this patient today ____ minutes. Quality Stroke Does the patient have a stroke diagnosis?: No VTE Prior VTE?: No VTE Risk Level:: Medical - low VTE Device Contraindication: Treatment Not Indicated VTE Drug Contraindication: Treatment Not Indicated
[2023-01-01] MEDS: metFORMIN HCl 1,000 MG TABLET 1000 MG PO ×2 (09:50→16:20)
[2023-01-01 12:04] LABS: Glucose, Whole Blood 287 mg/dL (60-115)
[2023-01-01] MEDS: Amoxicillin/Potassium Clav 875 MG TABLET PO ×2 (12:25→21:35)
[2023-01-01 15:47] LABS: Glucose, Whole Blood 186 mg/dL (60-115)
--- NOTE | 2023-01-01 15:47 | MHC.CM.PN ---
Per MD rounds no discharge today. Discharge is anticipated tomorrow. DP home no services with family transport. CM will follow for discharge needs.
[2023-01-01 20:22] LABS: Glucose, Whole Blood 156 mg/dL (60-115)
[2023-01-01] MEDS: guaiFENesin 100 MG/5 ML LIQUID PO (21:40)
[2023-01-01] MEDS: SUMAtriptan succinate 25 MG TABLET PO (21:40)
[2023-01-02] VITALS (9 sets, daily range): BP systolic 104–133; BP diastolic 57–70; PULSE 57–94; RESP 17–20; TEMP 36.1–37.1; O2SAT 95–97
[2023-01-02 07:00] LABS: Hemoglobin 11.8 g/dl (12.0-16.0); Mean Corpuscular HGB Conc 32.8 g/dl (31.0-35.0); Mean Corpuscular Hemoglobin 32.6 pg (27.0-33.0); Mean Corpuscular Volume 99.4 fL (80.0-98.0); Mean Platelet Volume 10.2 fL (9.4-12.3); Platelet Count 320 X10*3/uL (160-400); Red Blood Count 3.62 X10*6/uL (4.20-5.50); Red Cell Distribution Width 13.7 % (11.0-16.0)
[2023-01-02 07:01] LABS: Anion Gap 17 (12-20); Blood Urea Nitrogen 23 mg/dL (9-16); Calcium 8.9 mg/dL (8.4-10.2); Carbon Dioxide 27 mmol/L (22-29); Chloride 99 mmol/L (96-108); Creatinine Clr Calc Pharmacy 142.6; Estimated Glomerular Filt Rate > 60; Glucose Fasting 133 mg/dL (60-99); Potassium 4.5 mmol/L (3.3-5.1); Sodium 138 mmol/L (135-145)
[2023-01-02 07:07] LABS: Glucose, Whole Blood 117 mg/dL (60-115)
[2023-01-02] MEDS: guaiFENesin 100 MG/5 ML LIQUID PO (09:17)
[2023-01-02] MEDS: Amoxicillin/Potassium Clav 875 MG TABLET PO ×2 (09:17→22:56)
[2023-01-02] MEDS: 0.9 % Sodium Chloride Flush 3 ML SYRINGE IVFLUSH ×3 (09:17→21:46)
[2023-01-02] MEDS: Divalproex Sodium 500 MG TABLET.DR PO ×2 (09:17→21:45)
[2023-01-02] MEDS: predniSONE 20 MG TABLET 40 MG PO (09:17)
[2023-01-02] MEDS: metFORMIN HCl 1,000 MG TABLET 1000 MG PO ×2 (09:17→17:04)
[2023-01-02 11:05] LABS: Glucose, Whole Blood 176 mg/dL (60-115)
[2023-01-02 15:53] LABS: Glucose, Whole Blood 276 mg/dL (60-115)
--- NOTE | 2023-01-02 16:27 | HO.PM.IMPN ---
Subjective Subjective Date of Service: 01/02/23 Interval History: Acute hypoxic respiratory failure Review of Systems still sob with minimum excersion, weak Physical Exam Vital Signs: Vital Signs: Last Vital Signs Temp 98.7 F 01/02/23 15:40 Pulse 89 01/02/23 15:40 Resp 18 01/02/23 15:40 BP 127/58 L 01/02/23 15:40 Pulse Ox 95 01/02/23 15:40 O2 Del Method 01/02/23 15:40 O2 Flow Rate 1.5 01/02/23 07:27 BMI result Body Mass Index 35.0 ?General: AO X 3, no acute distress Resp:? diminished bilateral, no accessory muscles used CVS: S1,S2,RRR GI: soft, non tender, non distended Neuro:? motor grossly intact, alert Psych: appropriate affect, appropriate insight? Objective Data Active Medications Amoxicillin/Clavulanate Potassium (Amoxicillin/Potassium Clav 875 Mg Tablet) 875 mg PO Q12H [facility] Last Admin: 01/02/23 09:17 Dose: 875 mg Documented By: TAMAR Albuterol Sulfate 2.5 mg/ (Ipratropium [place] 0.5 mg) 0 mg INHALE RQ4H WHILE AWAKE [facility] Last Admin: 01/02/23 11:41 Dose: 2.5 each Documented By: DELANO Divalproex Sodium (Divalproex Sodium 500 Mg Tablet.Dr) 500 mg PO BID [facility] Last Admin: 01/02/23 09:17 Dose: 500 mg Documented By: TAMAR Guaifenesin (Guaifenesin 100 Mg/5 Ml Liquid) 5 ml PO Q4H PRN PRN Reason: cough Last Admin: 01/02/23 09:17 Dose: 5 ml Documented By: TAMAR Metformin HCl (Metformin Hcl 1,000 Mg Tablet) 1,000 mg PO BIDWM [facility] Last Admin: 01/02/23 09:17 Dose: 1,000 mg Documented By: TAMAR Pharmacy Consult (Consult Rx Perform Med Rec) 1 each MISCELLANE ONCE PRN PRN Reason: Consult order Prednisone (Prednisone 20 Mg Tablet) 40 mg PO DAILY [facility] Last Admin: 01/02/23 09:17 Dose: 40 mg Documented By: TAMAR Sodium Chloride (0.9 % Sodium Chloride Flush 3 Ml Syringe) 3 ml IVFLUSH QSHIFT [facility] Last Admin: 01/02/23 09:17 Dose: 3 ml Documented By: TAMAR Sumatriptan Succinate (Sumatriptan Succinate 25 Mg Tablet) 25 mg PO DAILY PRN PRN Reason: migraine Last Admin: 01/01/23 21:40 Dose: 25 mg Documented By: AYE Labs 01/02/23 06:17 01/02/23 06:17 Labs: Laboratory Results - last 24 hr 01/01/23 01/02/23 01/02/23 20:01 06:17 06:17 MCV 99.4 H MCH 32.6 MCHC 32.8 RDW 13.7 Plt Count 320 MPV 10.2 Absolute Nucleated RBC 0.000 Nucleated RBC % (auto) 0.0 Anion Gap 17 Estim Creat Clear Calc 142.6 Estimated GFR > 60 POC Glucose 156 H Fasting Glucose 133 H Calcium 8.9 01/02/23 01/02/23 01/02/23 07:03 10:59 15:32 MCV MCH MCHC RDW Plt Count MPV Absolute Nucleated RBC Nucleated RBC % (auto) Anion Gap Estim Creat Clear Calc Estimated GFR POC Glucose 117 H 176 H 276 H Fasting Glucose Calcium Assessment and Plan (1) Infection due to human metapneumovirus (hMPV): Status: Acute Plan 32F pmh moderate persistent asthma, epileptic and nonepileptic seizures presnted with 3-4 days sob Acute hypoxic respiratory failure secondary to moderate persistent asthma with acute decompensation due to human metapneumovirus complicated by viral sepsis and pneumonia bronchodilators, azithromycin change iv solumedrol to prednisone 40mg daily No evidence of bacterial pneumonia will hold off on other antibiotics Acute Lactic acidosis due to albuterol, hypoxia, not sepsis robitussin for cough new onset dm with hyperglycemia a1c 7.5, likely new diabetese will start metformin, monitor poc patient education constipation resolved with miralax Epilepsy Depakote Low risk for DVT, encourage ambulation full code reason for continued hospitalization: Acute hypoxic respiratory failure secondary to moderate persistent asthma: need iv steriods , new onset dm with hyperglycemia -need fs moniterin Time Spent With Patient Time: Total time managing care of this patient today ____ minutes. Quality Stroke Does the patient have a stroke diagnosis?: No VTE Prior VTE?: No VTE Risk Level:: Medical - low VTE Device Contraindication: Treatment Not Indicated VTE Drug Contraindication: Treatment Not Indicated
[2023-01-02 20:05] LABS: Glucose, Whole Blood 205 mg/dL (60-115)
[2023-01-02] MEDS: Insulin Lispro 100 UNIT/ML 3 ML VIAL SUBCUT (21:46)
[2023-01-03] VITALS (10 sets, daily range): BP systolic 90–126; BP diastolic 53–69; PULSE 77–110; RESP 12–20; TEMP 36.2–37.2; O2SAT 92–98
--- NOTE | 2023-01-03 | EEG_ITS ---
FINDINGS: The waking background activity consists of low-voltage fast frequencies seen diffusely intermixed with muscle artifacts and turning. The patient is frequently drowsy with moderate to high voltage 6 Hz diffuse theta. Brief sleep stage is identified. Photic stimulation and hyperventilation were omitted. No focal, lateralizing, or paroxysmal discharges seen. IMPRESSION: This briefly awake and predominantly drowsy EEG is within normal limits. MD VICTORIANO Ruggiero/MARTELL / [id number]
[2023-01-03] MEDS: SUMAtriptan succinate 25 MG TABLET PO (00:24)
[2023-01-03 07:25] LABS: Glucose, Whole Blood 135 mg/dL (60-115)
[2023-01-03] MEDS: predniSONE 20 MG TABLET 40 MG PO (08:49)
[2023-01-03] MEDS: Divalproex Sodium 500 MG TABLET.DR PO (08:49)
[2023-01-03] MEDS: 0.9 % Sodium Chloride Flush 3 ML SYRINGE IVFLUSH ×2 (08:50→16:16)
[2023-01-03] MEDS: metFORMIN HCl 1,000 MG TABLET 1000 MG PO ×2 (08:50→17:05)
[2023-01-03] MEDS: guaiFENesin 100 MG/5 ML LIQUID PO (08:50)
--- NOTE | 2023-01-03 10:58 | PC.NURSE ---
This nurse was called to the patients room at this time by GSR who stating pt was twitching . Pt was having a seizure at this time. Dr. Santoyo at bedside during this time. Pt given 1 mg Ativan at 1102, seizure broke at 1104. Pt given 1 liter of IVF. During the postictal state pt states she felt it come on and had palpations. Pt stated i have seizure 2-3 times a week, sometimes back to back . Pt back to baseline, neuro Q2h in place. Safety and fall precautions maintained, call carlos within reach. Camera in room.
[2023-01-03 11:05] LABS: Glucose, Whole Blood 199 mg/dL (60-115)
[2023-01-03] MEDS: LORazepam 2 MG/ML VIAL 1 MG IVPUSH (11:07)
[2023-01-03 12:18] LABS: Valproate 51.6 mcg/mL (50.0-100.0)
--- NOTE | 2023-01-03 12:33 | P.CDIM_ITS ---
PROVIDER RESPONSE TEXT: To clarify, the appropriate diagnosis supported by the clinical indicators: Obesity QUERY TEXT: PHYSICIAN'S DOCUMENTATION REQUEST Date of Query: 01/03/2023 12:23 PM EST Patient Name: Jerica Calix Admit Date: 12/29/2022 Dear Lukas Santoyo, A review of the medical record indicates additional documentation may be needed. Please review below and update the documentation accordingly. Clinical Indicators: Nursing notes 12/29 Height and weight notes BMI 35.0 Obese Class II If possible, please provide an associated diagnosis related to the abnormal BMI, such as: Overweight Obesity Obesity Drug induced Obesity Due to other cause Specify the other cause BMI is not significant Other (explain) Clinically unable to determine (explain) Thank you, Yelena Jenkins, CCS, CDIS Use of terms such as suspected, likely, concern for, or probable (associated with a specific diagnosi s that is being evaluated, monitored, or treated as if it exists) are acceptable and can be coded in the inpatient se tting, when documented at the time of discharge. Please use your independent medical judgment in providing your response. THIS QUERY IS PART OF THE PERMANENT MEDICAL RECORD
--- NOTE | 2023-01-03 12:44 | PM.NEUROCN ---
History of Present Illness Data of Consult Service Date: 01/03/23 Primary Care Provider: Kath Carey MD [facility] Reason for consult: Sz This is a 32F admitted for persistent asthma, H/O epileptic and nonepileptic seizures Followed by Dr. Miranda, on Depakote. She presented with 3-4 days sob. wheezing, cough, fevers. in ED noted to have bilateral opacities on CTA?. She apparently had a seizure today. No descriptionn is available. She is somewhat lethargic but follows commands. Valproic acid level today is 51. It was over 100 at on aadmission. Review of Systems Review of Systems: still sob with minimum excersion, weak Yes all other systems are reviewed and are negative Constitutional: Constitutional: Reports as per HPI [facility] Past Medical History Medical History (Updated 01/01/23 @ 09:27 by Arnoldo Chowdhury MD) Diabetes mellitus Epilepsy Surgical History Surgical History Hx of cholecystectomy Social History Social History Household Members: Spouse and Children Housing: Apartment Do you presently have visiting nurse or other home services: No Alcohol intake: current Alcohol intake frequency: does not drink Patient Tobacco Use Status: Never used Tobacco Smoked in Last 30 Days: No Use of substances other than those prescribed or required for medical reasons: No Currently Displaying Signs/Symptoms of Drug Intoxication Withdrawal: No Have you been hit, kicked, punched, or otherwise hurt by someone within the past year? If so, by whom?: No Do you feel safe in your current relationship?: Yes Is there a partner from a previous relationship who is making you feel unsafe now?: No Advance Directives: No Advance Directives Information Provided: Yes Do you have thoughts of harming others: None Do you have a plan to hurt others: No Plan Recently lost weight without trying: No How much weight loss: Not applicable Eating poorly because of decreased appetite: No Nutrition screen score: 0 Patient : No : No service: No Current occupational status: employed Meds Allergies Allergy/AdvReac Type Severity Reaction Status Date / Time Iodinated Contrast Media Allergy Intermediate Facial Verified 08/21/21 02:05 Swelling clindamycin [CLINDAMYCIN] Allergy Unknown ANAPHYLAXIS Verified 08/21/21 02:05 Active Medications: Current Medications Amoxicillin/Clavulanate Potassium (Amoxicillin/Potassium Clav 875 Mg Tablet) 875 mg PO Q12H [facility] Last Admin: 01/02/23 22:56 Dose: 875 mg Albuterol Sulfate 2.5 mg/ (Ipratropium [place] 0.5 mg) 0 mg INHALE RQ4H WHILE AWAKE [facility] Last Admin: 01/03/23 10:37 Dose: 2.5 each Divalproex Sodium (Divalproex Sodium 500 Mg Tablet.Dr) 500 mg PO BID [facility] Last Admin: 01/03/23 08:49 Dose: 500 mg Glucose (Glucose Gel 15 Gm Gel..Gram.) 15 gm PO Q15M PRN; Protocol PRN Reason: per Hypoglycemia Standing Ord. Guaifenesin (Guaifenesin 100 Mg/5 Ml Liquid) 5 ml PO Q4H PRN PRN Reason: cough Last Admin: 01/03/23 08:50 Dose: 5 ml Dextrose (D10) 250 mls @ 750 mls/hr IV Q15M PRN; Protocol PRN Reason: per Hypoglycemia Standing Ord. Insulin Human Lispro (Insulin Lispro 100 Unit/Ml 3 Ml Vial) 0 unit SUBCUT QIDACHS [facility]; Protocol Last Admin: 01/03/23 07:35 Dose: Not Given Lorazepam (Lorazepam 2 Mg/Ml Vial) 1 mg IVPUSH Q4H PRN PRN Reason: seizure Metformin HCl (Metformin Hcl 1,000 Mg Tablet) 1,000 mg PO BIDWM [facility] Last Admin: 01/03/23 08:50 Dose: 1,000 mg Pharmacy Consult (Consult Rx Perform Med Rec) 1 each MISCELLANE ONCE PRN PRN Reason: Consult order Prednisone (Prednisone 20 Mg Tablet) 40 mg PO DAILY [facility] Last Admin: 01/03/23 08:49 Dose: 40 mg Sodium Chloride (0.9 % Sodium Chloride Flush 3 Ml Syringe) 3 ml IVFLUSH QSHIFT [facility] Last Admin: 01/03/23 08:50 Dose: 3 ml Sumatriptan Succinate (Sumatriptan Succinate 25 Mg Tablet) 25 mg PO DAILY PRN PRN Reason: migraine Last Admin: 01/03/23 00:24 Dose: 25 mg Home Medications Medication Instructions Recorded Confirmed Last Taken Type divalproex 500 mg tablet,extended 1 tab PO BID 12/29/22 12/29/22 12/29/22 History release 24 hr Physical Exam Vital Signs: Vital Signs: Last Vital Signs Temp 98.0 F 01/03/23 11:06 Pulse 106 H 01/03/23 11:06 Resp 16 01/03/23 11:06 BP 121/65 01/03/23 11:06 Pulse Ox 92 01/03/23 11:06 O2 Del Method 01/03/23 11:06 O2 Flow Rate 1.5 01/02/23 07:27 BMI result Body Mass Index 35.0 Const: General: cooperative, healthy appearing, no acute distress, alert and awake Orientation/consciousness: patient oriented x3 Limitations: no limitations HEENT: Head: Yes normal to inspection and Yes atraumatic Ears: hearing grossly normal bilaterally General nose exam: Normal external nose present Face and sinus: Yes normal facial exam Throat: Yes posterior oropharynx normal, Yes tonsils normal and Yes uvula midline Eyes: General: appearance normal, both eyes and all related structures EOM: EOMs intact bilaterally Neck: Neck: Yes normal visual inspection and Yes no meningeal signs Resp: Effort & Inspection: normal respiratory effort and no respiratory distress Auscultation: clear to auscultation bilaterally, crackles bilateral at the base and diminished lung sounds bilateral throughout Cardio: Rate: regular rate Heart sounds: S1 normal heart sound present and S2 normal heart sound present GI: Inspection: Yes normal to inspection Palpation (GI): Soft to palpation, nontender, no guarding and not rigid : General: Yes no CVA tenderness Back/Spine/Pelvis: Back: no CVA tenderness Skin: Rashes: no rashes Wounds: no wounds Neuro: Other: Lethargic and slow to respond but follows commands. Neck is supple. Nonfocal examination. General: patient oriented x3, tone normal and no meningeal signs Gait exam (Neuro): Normal gait present Extrem: General: Yes normal to inspection, Yes no pedal edema and Yes no calf tenderness Results Labs 01/02/23 06:17 01/02/23 06:17 Microbiology Microbiology Results: Microbiology 12/29/22 12:15 Blood - Venous Blood Culture - Preliminary No growth after 48 hours. 12/29/22 12:15 Blood - Venous Blood Culture - Preliminary No growth after 48 hours. Assessment and Plan (1) Infection due to human metapneumovirus (hMPV): Status: Acute (2) Epilepsy: Status: Acute Possible breakthrough seizure versus nonepileptic seizure. Recommendation continue Depakote. Since the level has dropped by 50% high would increase the Depakote by 250 mg a day. EEG Plan 32F pmh moderate persistent asthma, epileptic and nonepileptic seizures presnted with 3-4 days sob Acute hypoxic respiratory failure secondary to moderate persistent asthma with acute decompensation due to human metapneumovirus complicated by viral sepsis and pneumonia bronchodilators, azithromycin change iv solumedrol to prednisone 40mg daily No evidence of bacterial pneumonia will hold off on other antibiotics Acute Lactic acidosis due to albuterol, hypoxia, not sepsis robitussin for cough new onset dm with hyperglycemia a1c 7.5, likely new diabetese will start metformin, monitor poc patient education constipation resolved with miralax Epilepsy Depakote Low risk for DVT, encourage ambulation full code reason for continued hospitalization: Acute hypoxic respiratory failure secondary to moderate persistent asthma: need iv steriods , new onset dm with hyperglycemia -need juan carlos gurrola Time Spent With Patient Time: Total time managing care of this patient today ____ minutes. Procedures Date of Service Date of Service: 01/03/23
[2023-01-03] MEDS: Amoxicillin/Potassium Clav 875 MG TABLET PO ×2 (15:09→22:04)
--- NOTE | 2023-01-03 15:11 | MHC.CM.PN ---
Per MD rounds no discharge today. SZ activity noted today. Neuro has been consulted. DP home with family assist transport.
[2023-01-03 15:50] LABS: Glucose, Whole Blood 217 mg/dL (60-115)
--- NOTE | 2023-01-03 16:02 | P.PNIM_ITS ---
Subjective Subjective Date of Service: 01/03/23 Interval History: Breakthrough seizure episode vs versus nonepileptic seizure Review of Systems has brief episode of seizure ,depakote levels seems low, recived ativan - improved seems improved in afternoon -at baseline,askin to eat Physical Exam Vital Signs: Vital Signs: Last Vital Signs Temp 97.6 F 01/03/23 15:23 Pulse 98 01/03/23 15:23 Resp 19 01/03/23 15:23 BP 126/60 01/03/23 15:23 Pulse Ox 95 01/03/23 15:23 O2 Del Method 01/03/23 15:23 O2 Flow Rate 1.5 01/02/23 07:27 BMI result Body Mass Index 35.0 General: AO X 3, no acute distress Resp:? diminished bilateral, no accessory muscles used CVS: S1,S2,RRR GI: soft, non tender, non distended Neuro:? motor grossly intact, alert Psych: appropriate affect, appropriate insight? Objective Data Active Medications Amoxicillin/Clavulanate Potassium (Amoxicillin/Potassium Clav 875 Mg Tablet) 875 mg PO Q12H [facility] Last Admin: 01/03/23 15:09 Dose: 875 mg Documented By: LAKESHA Albuterol Sulfate 2.5 mg/ (Ipratropium [place] 0.5 mg) 0 mg INHALE RQ4H WHILE AWAKE [facility] Last Admin: 01/03/23 10:37 Dose: 2.5 each Documented By: YANIQUE Glucose (Glucose Gel 15 Gm Gel..Gram.) 15 gm PO Q15M PRN; Protocol PRN Reason: per Hypoglycemia Standing Ord. Guaifenesin (Guaifenesin 100 Mg/5 Ml Liquid) 5 ml PO Q4H PRN PRN Reason: cough Last Admin: 01/03/23 08:50 Dose: 5 ml Documented By: TAMAR Dextrose (D10) 250 mls @ 750 mls/hr IV Q15M PRN; Protocol PRN Reason: per Hypoglycemia Standing Ord. Valproic Acid 500 mg/ Dextrose 55 mls @ 55 mls/hr IV BID [facility] Insulin Human Lispro (Insulin Lispro 100 Unit/Ml 3 Ml Vial) 0 unit SUBCUT QIDACHS [facility]; Protocol Last Admin: 01/03/23 14:30 Dose: Not Given Documented By: TAMAR Non-Admin Reason: NPO Lorazepam (Lorazepam 2 Mg/Ml Vial) 1 mg IVPUSH Q4H PRN PRN Reason: seizure Metformin HCl (Metformin Hcl 1,000 Mg Tablet) 1,000 mg PO BIDWM [facility] Last Admin: 01/03/23 08:50 Dose: 1,000 mg Documented By: TAMAR Pharmacy Consult (Consult Rx Perform Med Rec) 1 each MISCELLANE ONCE PRN PRN Reason: Consult order Prednisone (Prednisone 20 Mg Tablet) 40 mg PO DAILY [facility] Last Admin: 01/03/23 08:49 Dose: 40 mg Documented By: TAMAR Sodium Chloride (0.9 % Sodium Chloride Flush 3 Ml Syringe) 3 ml IVFLUSH QSHIFT [facility] Last Admin: 01/03/23 08:50 Dose: 3 ml Documented By: TAMAR Sumatriptan Succinate (Sumatriptan Succinate 25 Mg Tablet) 25 mg PO DAILY PRN PRN Reason: migraine Last Admin: 01/03/23 00:24 Dose: 25 mg Documented By: SONG Labs 01/02/23 06:17 01/02/23 06:17 Labs: Laboratory Results - last 24 hr 01/02/23 01/03/23 01/03/23 19:58 07:18 11:02 POC Glucose 205 H 135 H 199 H Valproic Acid 01/03/23 01/03/23 11:12 15:31 POC Glucose 217 H Valproic Acid 51.6 Microbiology Microbiology Results: Microbiology 12/29/22 12:15 Blood Culture - Final Blood - Venous No growth after 5 days. 12/29/22 12:15 Blood Culture - Final Blood - Venous No growth after 5 days. Assessment and Plan (1) Infection due to human metapneumovirus (hMPV): Status: Acute Plan 32F pmh moderate persistent asthma, epileptic and nonepileptic seizures presnted with 3-4 days sob Acute hypoxic respiratory failure secondary to moderate persistent asthma with acute decompensation due to human metapneumovirus complicated by viral sepsis and pneumonia bronchodilators, azithromycin change iv solumedrol to prednisone 40mg daily No evidence of bacterial pneumonia will hold off on other antibiotics Acute Lactic acidosis due to albuterol, hypoxia, not sepsis robitussin for cough new onset dm with hyperglycemia a1c 7.5, likely new diabetese will start metformin, monitor poc patient education constipation resolved with miralax Epilepsy:brief episode of possible breakthrough seizure , recived ativan -impro gonzález. ? need to moniter unclear if breakthrough seizure versus nonepileptic seizure. Depakote adjusted as depakote levels seems low,added eeg. neuro eval noted. Low risk for DVT, encourage ambulation full code reason for continued hospitalization: Acute hypoxic respiratory failure secondary to moderate persistent asthma: need iv steriods , new onset dm with hyperglycemia -need fs moniterin Time Spent With Patient Time: Total time managing care of this patient today ____ minutes. Quality Stroke Does the patient have a stroke diagnosis?: No VTE Prior VTE?: No VTE Risk Level:: Medical - low VTE Device Contraindication: Treatment Not Indicated VTE Drug Contraindication: Treatment Not Indicated
[2023-01-03] MEDS: Insulin Lispro 100 UNIT/ML 3 ML VIAL SUBCUT ×2 (16:15→21:00)
[2023-01-03] MEDS: Valproic Acid (as Sodium Salt) 250 MG in Dextrose 5 % 50 ML 52.5 MG IV (16:15)
[2023-01-03 19:31] LABS: Glucose, Whole Blood 221 mg/dL (60-115)
[2023-01-03] MEDS: Valproic Acid (as Sodium Salt) 500 MG in Dextrose 5 % 50 ML 55 MG IV (20:54)
[2023-01-03] MEDS: ondansetron HCL 4 MG/2 ML VIAL IVPUSH (21:00)
[2023-01-04 03:18] VITALS: BP 91/45; PULSE 74; RESP 17; TEMP 36.6; O2SAT 94
[2023-01-04 07:48] LABS: Glucose, Whole Blood 113 mg/dL (60-115)
[2023-01-04 08:00] VITALS: BP 96/62; PULSE 71; RESP 18; TEMP 36.4; O2SAT 98
[2023-01-04 08:19] VITALS: PULSE 86; RESP 17; O2SAT 94
[2023-01-04 08:21] VITALS: BP 114/62
[2023-01-04] MEDS: Valproic Acid (as Sodium Salt) 500 MG in Dextrose 5 % 50 ML 55 MG IV (09:23)
[2023-01-04] MEDS: predniSONE 20 MG TABLET 40 MG PO (09:24)
[2023-01-04] MEDS: 0.9 % Sodium Chloride Flush 3 ML SYRINGE IVFLUSH (09:24)
[2023-01-04] MEDS: metFORMIN HCl 1,000 MG TABLET 1000 MG PO (09:24)
[2023-01-04 11:42] LABS: Glucose, Whole Blood 149 mg/dL (60-115)
[2023-01-04 11:52] VITALS: PULSE 88; RESP 18; O2SAT 94
[2023-01-04 12:00] VITALS: BP 116/65; PULSE 69; RESP 18; O2SAT 96
--- NOTE | 2023-01-04 12:01 | PM.DS ---
DS: Providers Provider Date of Service: 01/04/23 Date of admission: 12/29/22 17:35 Date of discharge: 01/04/23 Primary care physician: Kath Carey MD Consults: 01/03/23 11:02 Consult to Neurology Routine Consulting Provider: [facility] Reason for consultation: breakthrough seizure Attending physician on discharge: Lukas Santoyo DS: Diagnosis Discharge Diagnosis (1) Infection due to human metapneumovirus (hMPV): Status: Acute (2) Diabetes mellitus: Status: Acute (3) Viral pneumonia: Status: Acute (4) Epilepsy: Status: Acute (5) Otitis media: Status: Acute DS: Summary Hospital Course Hospital Course: 32F pmh moderate persistent asthma, epileptic and nonepileptic seizures presnted with 3-4 days sob. monie manning seen in ED on 12/25/22 for sore throat, was given augmentin. after that started feeling sob, wheezing, cough, fevers. in ED noted to have bilateral opacities on CTA (no pe), hypoxic, positive for human metapneumovirus. Hospital course: Patient was admitted acute hypoxemic respiratory failure and shortness of breath-patient has moderate persistent asthma exacerbation with URI of human metapneumovirus,viral sepsis and pneumonia : Patient was started on nebs, steroids seems to be improving: Patient switched to p.o. steroids upon discharge. Patient has history of seizure disorder-had possible 1 breakthrough seizure yesterday: Her Depakote level were borderline so Depakote dosing is adjusted upon discharge patient has no seizure activity overnight. Seen by Neurology-Depakote is adjusted, EEG pending. Follow-up with neurology outpatient. Patient also had left ear infection: complete course of antibiotics. Patient has new onset diabetes: Patient was started on metformin and also encouraged lose weight due to morbid obesity. Further management out patiently with PCP. Time Spent with Patient Time attestation: Total time managing care of this patient today ____ minutes. Discharge coordination time: Greater than 30 minutes Quality: Safe Use of Opioids Does Pt have an Active Cancer Diagnosis on the Problem List?: No Quality: Stroke Does the patient have a stroke diagnosis?: No Physical Exam Vital Signs: Vital Signs: Last Vital Signs Temp 97.6 F 01/04/23 08:00 Pulse 88 03/09/23 11:52 Resp 18 01/04/23 11:52 BP 114/62 01/04/23 08:21 Pulse Ox 98 01/04/23 08:00 O2 Del Method 01/04/23 03:18 O2 Flow Rate 1.5 01/02/23 07:27 BMI result Body Mass Index 35.0 General: AO X 3, no acute distress Resp:? air entry seems fine , no wheezing CVS: S1,S2,RRR GI: soft, non tender, non distended Neuro:? motor grossly intact, alert Psych: appropriate affect, appropriate insight? DS: Data Data Completed and Pending Labs on day of discharge: Laboratory Results - last 24 hr 01/03/23 01/03/23 01/03/23 11:12 15:31 19:14 POC Glucose 217 H 221 H Valproic Acid 51.6 01/04/23 01/04/23 07:33 11:39 POC Glucose 113 149 H Valproic Acid Imaging Chest x-ray: Radiologist's impression: ITS Impressions Chest X-Ray 12/29/22 12:41 IMPRESSION: No dense consolidation. Bronchial wall thickening can be seen with a small airways process such as asthma or atypical/viral infection. Chest CTA 12/29/22 16:10 IMPRESSION: 1. No central or segmental pulmonary emboli. 2. Patchy groundglass opacities in the left upper lobe could be infectious or inflammatory. 3. Hepatic steatosis. VTE: negative Discharge Plan Discharge Anticipated Discharge Date/Time: 01/04/23 11:50 Patient Disposition: Home, Self-Care Discharge Diagnosis: Acute hypoxic respiratory failure sec to moderate persistent asthma and human metapneumovirus URI. new onset DM. Referrals: Kath Venegas MD [Primary Care Provider] - 1 Week Discharge Medications: New metformin 1,000 mg Tablet 1,000 mg PO BIDWM Qty: 60 0RF guaifenesin 100 mg/5 mL Liquid 5 ml PO Q4H PRN (Reason: cough) Qty: 80 0RF divalproex 250 mg tablet,delayed release (DR/EC) 250 mg PO DAILY Qty: 30 0RF Continued naproxen 500 mg tablet 500 mg PO BID PRN (Reason: pain) Qty: 14 0RF prednisone 20 mg tablet 40 mg PO DAILY 5 Days Qty: 10 0RF amoxicillin-pot clavulanate 875-125 mg tablet 1 tab PO BID 10 Days Qty: 20 0RF Magic Mouthwash Diphen/Lido/Antacid 1:1:1 240 mL suspension 5 ml PO TID Qty: 240 0RF Rx Instructions: Lidocaine Viscous 2 % 80mL; diphenhydramine 12.5 mg/5 mL 80mL; aluminum-mag hydrox-simeth 646nm-138fd-20bj/5mL 80mL Swish and spit, do not swallow divalproex 500 mg tablet extended release 24 hr 1 tab PO BID Discharge Orders: Discharge Order (Routine); Ordered 01/04/23 Ordered By: Lukas Santoyo Diet: Advance to usual diet Activity on Discharge: As tolerated Stand Alone Forms: Patient Portal Discharge page Care Plan Goals: Patient was admitted for hypoxia and shortness of breath-patient has moderate persistent asthma exacerbation with URI of human metapneumovirus: Patient was started on nebs, steroids seems to be improving: Patient switched to p.o. steroids upon discharge. Patient has history of seizure disorder-had possible 1 breakthrough seizure yesterday: Her Depakote level were borderline so Depakote dosing is adjusted upon discharge patient has no seizure activity overnight. Seen by Neurology-Depakote is adjusted, EEG seems fine. Follow-up with neurology outpatient. Patient also had left ear infection: complete course of antibiotics. Patient has new onset diabetes: Patient was started on metformin and also encouraged lose weight due to morbid obesity. Further management out patiently with PCP. Health Concerns: As above. Plan of Treatment: As above. Assessment: As above. Patient Instructions: Viral Pneumonia (DC), Ear Infection (DC), Pneumonia (DC)
--- NOTE | 2023-01-04 12:16 | MHC.CM.PN ---
DP: PT HAS BEEN MEDICALLY CLEARED FOR DC HOME, NO SERVICES. RN AWARE. FAMILY WILL TRANSPORT
== END 2023-01-04 15:38 | disposition home or self-care (01) | DRG 720 ==
LOC: HO.ED 15:42 → HO.EDOVER 17:48 → HO.IMC 17:57
PROVIDERS: Nurse Practitioner Family; Physician Assistant; Admitting Provider Internal Medicine; Emergency Provider Emergency Medicine Emergency Medical Services; PCP Internal Medicine; Visit Provider Internal Medicine
DX: A41.89 Other specified sepsis (principal); J96.01 Acute respiratory failure with hypoxia; E87.21 Acute metabolic acidosis; J12.3 Human metapneumovirus pneumonia; J45.41 Moderate persistent asthma with (acute) exacerbation; K59.00 Constipation, unspecified; G40.909 Epilepsy, unspecified, not intractable, without status epilepticus; Z68.35 Body mass index [BMI] 35.0-35.9, adult; E11.65 Type 2 diabetes mellitus with hyperglycemia; E66.01 Morbid (severe) obesity due to excess calories; H66.92 Otitis media, unspecified, left ear; Z20.822 Contact with and (suspected) exposure to COVID-19; Z79.52 Long term (current) use of systemic steroids; Z88.1 Allergy status to other antibiotic agents; Z91.041 Radiographic dye allergy status; Z79.84 Long term (current) use of oral hypoglycemic drugs; Z79.899 Other long term (current) drug therapy
CPT/HCPCS: 36415; 71046; 71275; 80048; 80053; 80164; 81003; 82947; 83036; 83605; 83735; 83880; 84484; 85025; 85027; 85610; 87040; 87502; 87633; 87635; 93005; 94640; 95816; 99285; J0696; J1200; J1885; J2060; J2405; J2920; Q9967

== ENCOUNTER 2023-02-08 07:45 | Emergency (ER) | payer MEDICAID, SELFPAY ==
[2023-02-08 07:51] VITALS: BP 126/48; PULSE 87; RESP 16; TEMP 36.7; O2SAT 96; BMI 33.5
--- NOTE | 2023-02-08 08:11 | ED.GENADULT ---
HPI - General Adult General Chief complaint: Back Pain/Injury Stated complaint: severe back pain Time Seen by Provider: 02/08/23 08:09 Source: patient Mode of arrival: ambulatory Limitations: no limitations History of Present Illness HPI narrative: Patient is a 32 year old assigned female at with a history of lumbar arthritis presenting to the emergency department today with low back pain this AM. Patient states that she took 500ml of Naprosyn at 0700 with minimal relief, had similar episodes in the past but was not able to attend physical therapy due to time conflict. Reports limited ROM due to pain. Patient denies any saddle numbness, bladder/bowel incontinence, change in urine or bowel habits, dizziness, lightheadedness, abdominal pain, nausea, vomiting, fever, chills, blurry vision, double vision, loss of vision, chest pain, difficulty breathing, shortness of breath, night sweats, pain with urination, increased urinary frequency, increased urinary urgency, blood in her urine or stool, syncope or a near syncopal episode, recent trauma or falls, or any other complaints at this time. Onset (ago): hour(s) Location: back Radiation: non-radiation Quality: aching Pain Consistency: constant Exacerbating factors: movement Associated symptoms: denies other symptoms Treatments prior to arrival: NSAID Related Data Home Medications Medication Instructions Recorded Confirmed divalproex 500 mg tablet,extended 1 tab PO BID 12/29/22 12/29/22 release 24 hr Previous Rx's Medication Instructions Recorded naproxen 500 mg tablet 500 mg PO BID PRN pain #14 tabs 09/29/22 Magic Mouthwash 5 ml PO TID #240 mL 12/25/22 Diphen/Lido/Antacid 1:1:1 240 mL suspension amoxicillin 875 mg-potassium 1 tab PO BID 10 days #20 tabs 12/25/22 clavulanate 125 mg tablet prednisone 20 mg tablet 40 mg PO DAILY 5 days #10 tabs 12/25/22 divalproex 250 mg tablet,delayed 250 mg PO DAILY #30 tabs 01/04/23 release guaifenesin 100 mg/5 mL oral liquid 5 ml PO Q4H PRN cough #80 mL 01/04/23 metformin 1,000 mg tablet 1,000 mg PO BIDWM #60 tabs 01/04/23 prednisone 20 mg tablet 20 mg PO DAILY 7 days #7 tabs 02/08/23 Allergies Allergy/AdvReac Type Severity Reaction Status Date / Time Iodinated Contrast Media Allergy Intermediate Facial Verified 02/08/23 07:55 Swelling clindamycin [CLINDAMYCIN] Allergy Unknown ANAPHYLAXIS Verified 02/08/23 07:55 Review of Systems Review of Systems: Yes all other systems are reviewed and are negative Constitutional: Constitutional: Reports as per HPI Eyes: Eyes: Reports no additional eye complaints and Denies loss of vision ENT: Denies dizziness Cardiovascular: Cardiovascular: Reports no additional cardiovascular complaints, Denies chest pain, Denies lightheadedness, Denies Loss of Consciousness and Denies dyspnea Respiratory: Respiratory: Reports no additional respiratory complaints and Denies dyspnea Gastrointestinal: Gastrointestinal: Reports no additional gastrointestinal complaints, Denies abdominal pain, Denies melena, Denies hematochezia, Denies change in bowel habits and Denies change in stool character Genitourinary: Genitourinary: Denies hematuria, Denies urinary frequency, Denies dysuria, Denies urinary incontinence, Denies urinary hesitancy and Denies urinary urgency Musculoskeletal: Musculoskeletal: Reports as per HPI, Reports back pain, Denies arthralgias, Denies joint swelling, Denies numbness and Denies tingling Neurologic: Denies dizziness, Denies loss of vision, Denies numbness and Denies tingling Psychiatric: Psychiatric: Reports no additional psychiatric complaints Endocrine: Endocrine: Reports no additional endocrine complaints Hematologic/Lymphatic: Hematologic/Lymphatic: Reports no additional hematologic/lymphatic complaints Allergic/Immunologic: Allergic/Immunologic: Reports no additional allergic/immunologic complaints [facility] Past Medical History Attestation statement: The following information was validated with the patient. Source: old records reviewed and nursing notes reviewed Medical History Diabetes mellitus Epilepsy Surgical History Hx of cholecystectomy Social History Social History Household Members: Spouse and Children Housing: Apartment Do you presently have visiting nurse or other home services: No Alcohol intake: current Alcohol intake frequency: does not drink Patient Tobacco Use Status: Never used Tobacco Advance Directives: No service: No Current occupational status: employed Physical Exam ED Vital Signs: Vital Signs - 24 hr 02/08/23 07:51 Temperature 98.0 F Pulse Rate 87 Respiratory Rate 16 Blood Pressure 126/48 L Pulse Oximetry 96 Oxygen Delivery Method Room Air BMI result Body Mass Index 33.5 Const General: cooperative, no acute distress, alert and awake Nutritional Appearance: well nourished Orientation/consciousness: patient oriented x3 Limitations: no limitations HENMT Head: Yes normal to inspection and Yes atraumatic Ears: hearing grossly normal bilaterally and external ears normal General nose exam: Normal external nose present, no nasal discharge noted and no epistaxis Face and sinus: Yes normal facial exam, No abrasion and No laceration Mouth: Normal oral and palatal mucosa present, no drooling and no muffled voice Eyes General: appearance normal, both eyes and all related structures Periorbital: periorbital findings normal Eyelids: Yes eyelids normal Conjunctivae: conjunctivae normal Pupils: Equal, round and reactive pupils present EOM: EOMs intact bilaterally Neck Neck: Yes normal visual inspection and Yes full ROM Chest Chest palpation & inspection: normal inspection of the chest Resp Effort & Inspection: normal respiratory effort and able to speak in complete sentences Auscultation: clear to auscultation bilaterally Cardio Rate: regular rate Rhythm: regular rhythm Heart sounds: S1 normal heart sound present and S2 normal heart sound present GI Inspection: Yes normal to inspection General: Yes no CVA tenderness Back/Spine/Pelvis Back: no CVA tenderness Cervical Spine: normal cervical lordosis Thoracic/Lumbar Spine: thoracic and lumbar spine normal to inspection, pain with thoraco-lumbar ROM and paraspinal muscle tenderness Skin General skin exam: no rashes or lesions noted Neuro General: patient oriented x3, moves all extremities, no focal motor deficits and CN's II-XI intact bilaterally Cranial nerves: Yes Equal, round and reactive pupils present Cognition (Neuro): normal cognition Motor exam (neuro): 5/5 motor strength present throughout Sensory Exam: Normal double simultaneous stimulation for sensation Coordination: [id number] test normal Extrem General: Yes normal to inspection, Yes full ROM and Yes capillary refill normal Psych Appearance: grossly normal Mental Status: mental status grossly normal Affect: normal affect Attitude: cooperative Thought process: Normal thought process present Thought content: Normal thought content present Insight: Good insight present (Psych) Medical Decision Making Medical Decision Making MDM Narrative: Patient is a 32 year old assigned female at with a history of lumbar arthritis presenting to the emergency department today with low back pain. Patient's physical exam showed mildly limited ROM to the lumbar region secondary to pain, 5/5 strength to bilateral lower extremities, no overlying erythema/ecchymosis/deformity. Patient's clinical presentation is consistent with musculoskeletal back pain. I explained my physical exam findings to the patient. I answered all questions asked by the patient. Patient received flexeril and solu-medrol which she stated helped her symptoms significantly. I stressed the importance of the patient taking her medication as prescribed. I stressed the importance of the patient following up with her primary care provider and a home health specialist. I stressed the importance of the patient returning to the emergency department immediately if her symptoms were to worsen or if she were to develop any dizziness, shortness of breath, difficulty breathing, chest pain, blurry vision, loss of vision, nausea, vomiting, abdominal pain, fever, chills, back pain, or any other complaints. Patient verbalized agreement and understanding with this treatment plan and discharge. Differential Diagnosis Differential Diagnoses: The differential diagnosis associated with the presentation includes back pain Discharge Plan Discharge Clinical Impression: Low back pain Patient Disposition: Home, Self-Care Instructions: Back Pain (ED) Additional Instructions: Follow up with your primary care provider and a home health specialist. Return to the emergency department immediately if your symptoms worsen or if you develop any dizziness, shortness of breath, difficulty breathing, chest pain, blurry vision, loss of vision, nausea, vomiting, abdominal pain, fever, chills, back pain, or any other complaints. Seamus un seguimiento con cook proveedor de atenci?n primaria y un especialista en [place] vertebral. Regrese al departamento de emergencias de inmediato si roberto s?ntomas empeoran o si presenta mareos, falta de aire, dificultad para respirar, dolor en el pecho, visi?n borrosa, p?rdida de la visi?n, n?useas, v?mitos, dolor abdominal, fiebre, escalofr?os, dolor de espalda o cualquier otras quejas. Prescriptions: New prednisone 20 mg tablet 20 mg PO DAILY 7 Days Qty: 7 0RF No Action naproxen 500 mg tablet 500 mg PO BID PRN (Reason: pain) Qty: 14 0RF prednisone 20 mg tablet 40 mg PO DAILY 5 Days Qty: 10 0RF amoxicillin-pot clavulanate 875-125 mg tablet 1 tab PO BID 10 Days Qty: 20 0RF Magic Mouthwash Diphen/Lido/Antacid 1:1:1 240 mL suspension 5 ml PO TID Qty: 240 0RF Rx Instructions: Lidocaine Viscous 2 % 80mL; diphenhydramine 12.5 mg/5 mL 80mL; aluminum-mag hydrox-simeth 694kg-418ho-60ck/5mL 80mL Swish and spit, do not swallow divalproex 500 mg tablet extended release 24 hr 1 tab PO BID metformin 1,000 mg Tablet 1,000 mg PO BIDWM Qty: 60 0RF guaifenesin 100 mg/5 mL Liquid 5 ml PO Q4H PRN (Reason: cough) Qty: 80 0RF divalproex 250 mg tablet,delayed release (DR/EC) 250 mg PO DAILY Qty: 30 0RF Referrals: [facility] [Provider Group] (Call to establish and follow up with a home health specialist. Llame para establecer y hacer un seguimiento con trent especialista en [place] vertebral.) Kath Venegas MD [Primary Care Provider] - Stand Alone Forms: Work/School Release Print Language: Armenian
[2023-02-08] MEDS: Cyclobenzaprine HCl 5 MG TABLET PO (08:58)
[2023-02-08] MEDS: methylPREDNISolone Sod Succ 125 MG/2 ML VIAL 60 MG IM (08:59)
[2023-02-08 09:20] VITALS: BP 114/51; PULSE 69; RESP 16; O2SAT 99
== END 2023-02-08 09:23 | disposition home or self-care (01) ==
PROVIDERS: Emergency Provider Emergency Medicine; PCP Internal Medicine
DX: M54.50 Low back pain, unspecified (principal); Z79.899 Other long term (current) drug therapy
CPT/HCPCS: 96372; 99284; J2930

== ENCOUNTER 2023-02-13 11:10 | Emergency (ER) | payer MEDICAID, SELFPAY ==
[2023-02-13 11:30] VITALS: BP 114/60; PULSE 99; RESP 18; TEMP 37.5; O2SAT 96; BMI 33.5
--- NOTE | 2023-02-13 11:33 | ED.GENADULT ---
HPI - General Adult General Chief complaint: Upper Respiratory Symptoms <PAT Phelan Last Filed: 02/13/23 11:34> Stated complaint: Sore Throat Vomiting <PAT Phelan Last Filed: 02/13/23 11:34> Time Seen by Provider: 02/13/23 11:34 <PAT Phelan - Last Filed: 02/13/23 11:34> Source: patient <PAT Brand Last Filed: 02/13/23 13:32> Mode of arrival: ambulatory <PAT Brand Last Filed: 02/13/23 13:32> Limitations: no limitations <PAT Brand Last Filed: 02/13/23 13:32> History of Present Illness HPI narrative: 32-year-old female with history of diabetes, epilepsy, ear infection and history of viral pneumonia in the past presents to the ER for evaluation of sore throat, fevers and feeling unwell since yesterday.She states she vomited 2x since yesterday. She has had low grade fevers at home, headaches and body aches. No known sick contacts. Her daughter is home and feels well. She is able to tolerate PO but has pain with swallowing. No SOB or chest pain. No abdominal pain or diarrhea. <PAT Brand Last Filed: 02/13/23 13:32> MD complaint: sore throat <PAT Brand Last Filed: 02/13/23 13:32> Onset (ago): day(s) (1) <PAT Brand Last Filed: 02/13/23 13:32> Location: mouth and neck <PAT Brand Last Filed: 02/13/23 13:32> Radiation: non-radiation <PAT Brand Last Filed: 02/13/23 13:32> Severity: moderate <PAT Brand Last Filed: 02/13/23 13:32> Quality: aching <PAT Brand Last Filed: 02/13/23 13:32> Pain Consistency: constant <PAT Brand Last Filed: 02/13/23 13:32> Relieving factors: none <PAT Brand - Last Filed: 02/13/23 13:32> Exacerbating factors: eating <PAT Brand - Last Filed: 02/13/23 13:32> Associated symptoms: fever/chills, headaches, loss of appetite, malaise, nausea/vomiting and weakness <PAT Brand Last Filed: 02/13/23 13:32> Treatments prior to arrival: none <PAT Brand - Last Filed: 02/13/23 13:32> Related Data Home medications: Home Medications Medication Instructions Recorded Confirmed divalproex 500 mg tablet,extended 1 tab PO BID 12/29/22 12/29/22 release 24 hr Previous Rx's Medication Instructions Recorded naproxen 500 mg tablet 500 mg PO BID PRN pain #14 tabs 09/29/22 Magic Mouthwash 5 ml PO TID #240 mL 12/25/22 Diphen/Lido/Antacid 1:1:1 240 mL suspension amoxicillin 875 mg-potassium 1 tab PO BID 10 days #20 tabs 12/25/22 clavulanate 125 mg tablet prednisone 20 mg tablet 40 mg PO DAILY 5 days #10 tabs 12/25/22 divalproex 250 mg tablet,delayed 250 mg PO DAILY #30 tabs 01/04/23 release guaifenesin 100 mg/5 mL oral liquid 5 ml PO Q4H PRN cough #80 mL 01/04/23 metformin 1,000 mg tablet 1,000 mg PO BIDWM #60 tabs 01/04/23 prednisone 20 mg tablet 20 mg PO DAILY 7 days #7 tabs 02/08/23 amoxicillin 500 mg capsule 500 mg PO BID #20 caps 02/13/23 <PAT Phelan Last Filed: 02/13/23 11:34> Allergies/adverse reactions: Allergies Allergy/AdvReac Type Severity Reaction Status Date / Time Iodinated Contrast Media Allergy Intermediate Facial Verified 02/13/23 11:30 Swelling clindamycin [CLINDAMYCIN] Allergy Unknown ANAPHYLAXIS Verified 02/13/23 11:30 <PAT Phelan Last Filed: 02/13/23 11:34> Review of Systems Review of Systems: Yes all other systems are reviewed and are negative <PAT Brand - Last Filed: 02/13/23 13:32> [facility] Past Medical History Medical History: Medical History Diabetes mellitus Epilepsy <PAT Phelan - Last Filed: 02/13/23 11:34> Surgical History: Surgical History Hx of cholecystectomy <PAT Phelan - Last Filed: 02/13/23 11:34> Social History Social History: Social History Household Members: Spouse and Children Housing: Apartment Do you presently have visiting nurse or other home services: No Alcohol intake: never Patient Tobacco Use Status: Never used Tobacco Advance Directives: No service: No Current occupational status: employed <PAT Phelan - Last Filed: 02/13/23 11:34> Physical Exam ED Vital Signs: Vital Signs - 24 hr 02/13/23 11:30 Temperature 99.5 F Pulse Rate 99 Respiratory Rate 18 Blood Pressure 114/60 Pulse Oximetry 96 Oxygen Delivery Method Room Air BMI result Body Mass Index 33.5 <PAT Phelan - Last Filed: 02/13/23 11:34> Vital Signs - 24 hr 02/13/23 11:30 Temperature 99.5 F Pulse Rate 99 Respiratory Rate 18 Blood Pressure 114/60 Pulse Oximetry 96 Oxygen Delivery Method Room Air BMI result Body Mass Index 33.5 <PAT Brand - Last Filed: 02/13/23 13:32> Appearance: Alert. Oriented X3. No acute distress. Head: normocephalic, atraumatic. Eyes: Pupils equal, round and reactive to light. ENT: Pharynx with posterior erythema of posterior oropharyns, + tonsillar swelling & exudates bilaterally. Neck: Normal inspection. Neck supple. CVS: Normal heart rate and rhythm. Pulses normal. Respiratory: No respiratory distress. Breath sounds normal. Abdomen: Soft and nontender. +BS x4 Skin: Skin warm and dry. Normal skin color. Normal skin turgor. No rashes. Extremities: No lower extremity edema. No joint swelling. Neuro/psych: Oriented X 3. No motor deficit. No sensory deficit. CN II-XII intact. Normal speech and cognition. <PAT Brand - Last Filed: 02/13/23 13:32> Course Course Course Narrative: This is an RME: Additional HPI, ROS, PE not included below will be deferred to primary provider. 32-year-old female history of diabetes, epilepsy presents to the emergency department with sore throat x2 days, patient reports she found amoxicillin at home and has been taking it for this. Her daughter home with similar symptoms. Physical exam erythematous, edematous tonsils bilaterally with exudates. Uvula midline. No palpable lymphadenopathy Concerning for strep Strep test ordered <PAT Phelan - Last Filed: 02/13/23 11:34> Medications Administered Discontinued Medications Generic Name Dose Route Start Last Admin Trade Name Freq PRN Reason Stop Dose Admin Acetaminophen 650 mg 02/13/23 11:39 02/13/23 11:44 Acetaminophen 325 Mg Tablet PO 02/13/23 11:40 650 mg ONCE ONE Administration Ondansetron HCl 4 mg 02/13/23 11:35 02/13/23 11:43 Ondansetron Odt 4 Mg Tab.Rapdis TRANSLINGU 02/13/23 11:36 4 mg ONCE ONE Administration <PAT Phelan - Last Filed: 02/13/23 11:34> Medications Administered Discontinued Medications Generic Name Dose Route Start Last Admin Trade Name Freq PRN Reason Stop Dose Admin Acetaminophen 650 mg 02/13/23 11:39 02/13/23 11:44 Acetaminophen 325 Mg Tablet PO 02/13/23 11:40 650 mg ONCE ONE Administration Ondansetron HCl 4 mg 02/13/23 11:35 02/13/23 11:43 Ondansetron Odt 4 Mg Tab.Rapdis TRANSLINGU 02/13/23 11:36 4 mg ONCE ONE Administration <PAT Brand - Last Filed: 02/13/23 13:32> Medical Decision Making Medical Decision Making MDM Narrative: 32-year-old female presenting to the ER for evaluation of sore throat, fevers, vomiting since yesterday. Exam is consistent with strep pharyngitis. She is nontoxic appearing, handling his secretions normally. No evidence of retropharyngeal or peritonsillar abscess on examination today. Her vital signs are stable. She tested positive for strep throat. Will start antibiotics. She was counseled on diagnosis and management as well as return precautions. She is stable for discharge home. <PAT Brand - Last Filed: 02/13/23 13:32> Differential Diagnosis Differential Diagnoses: The differential diagnosis associated with the presentation includes <PAT Brand - Last Filed: 02/13/23 13:32> strep, covid, flu, rsv, other viral syndrome, bronchitis, pneumonia, no evidence of peritonsillar abcsess or retropharyngeal abscess <PAT Brand Last Filed: 02/13/23 13:32> Lab Data MDM Lab Attestation statement: I reviewed the patient's lab results. <PAT Brand Last Filed: 02/13/23 13:32> Labs: Lab Results 02/13/23 Range/Units 11:35 S. pyogenes GrpA YIN Positive A (Negative) <PAT Phelan Last Filed: 02/13/23 11:34> Lab Results 02/13/23 Range/Units 11:35 S. pyogenes GrpA YIN Positive A (Negative) <PAT Brand - Last Filed: 02/13/23 13:32> External Record Review External record reviewed: Prior outpatient labs and Prior outpatient radiology <PAT Brand Last Filed: 02/13/23 13:32> Prescription Management I considered prescription management with: Pain Medication and Antibiotic <PAT Brand Last Filed: 02/13/23 13:32> Chronic Conditions Patient?s care impacted by: Diabetes <PAT Brand Last Filed: 02/13/23 13:32> Critical Care Time Critical Care Time Critical Care Time: No <PAT Brand Last Filed: 02/13/23 13:32> Discharge Plan Discharge Clinical Impression: Acute streptococcal pharyngitis <PAT Phelan Last Filed: 02/13/23 11:34> Patient Disposition: Home, Self-Care <PAT Phelan Last Filed: 02/13/23 11:34> Instructions: Strep Throat (DC) <PAT Phelan Last Filed: 02/13/23 11:34> Additional Instructions: You tested positive for strep throat. Take the prescribed antibiotic as directed. Do not miss any doses in complete the entire course. Use warm saltwater gargles 2-3 times per day. Recommend [id number] Chloraseptic spray and Cepacol lozenges as needed for sore throat. Rest and drink plenty of fluids. Follow-up with primary care doctor as needed. If you develop new or worsening symptoms call 911 or come back to the ER for further evaluation. <PAT Phelan Last Filed: 02/13/23 11:34> Prescriptions: New amoxicillin 500 mg capsule 500 mg PO BID Qty: 20 0RF No Action naproxen 500 mg tablet 500 mg PO BID PRN (Reason: pain) Qty: 14 0RF prednisone 20 mg tablet 40 mg PO DAILY 5 Days Qty: 10 0RF amoxicillin-pot clavulanate 875-125 mg tablet 1 tab PO BID 10 Days Qty: 20 0RF Magic Mouthwash Diphen/Lido/Antacid 1:1:1 240 mL suspension 5 ml PO TID Qty: 240 0RF Rx Instructions: Lidocaine Viscous 2 % 80mL; diphenhydramine 12.5 mg/5 mL 80mL; aluminum-mag hydrox-simeth [id number]/5mL 80mL Swish and spit, do not swallow divalproex 500 mg tablet extended release 24 hr 1 tab PO BID metformin 1,000 mg Tablet 1,000 mg PO BIDWM Qty: 60 0RF guaifenesin 100 mg/5 mL Liquid 5 ml PO Q4H PRN (Reason: cough) Qty: 80 0RF divalproex 250 mg tablet,delayed release (DR/EC) 250 mg PO DAILY Qty: 30 0RF prednisone 20 mg tablet 20 mg PO DAILY 7 Days Qty: 7 0RF <PAT Phelan Last Filed: 02/13/23 11:34> Stand Alone Forms: Work/School Release <PAT Phelan Last Filed: 02/13/23 11:34> Interventions: ED Discharge Assessment Last Done: 02/13/23 12:49 <PAT Phelan - Last Filed: 02/13/23 11:34> Discharge Date/Time: 02/13/23 12:50 <PAT Phelan - Last Filed: 02/13/23 11:34>
[2023-02-13] MEDS: Ondansetron ODT 4 MG TAB.RAPDIS TRANSLINGU (11:43)
[2023-02-13] MEDS: Acetaminophen 325 MG TABLET 650 MG PO (11:44)
[2023-02-13 11:51] LABS: IDNOW Serial# 08D9AD1C; Strep A Nucleic Acid Positive (Negative)
--- NOTE | 2023-02-13 11:58 | PC.NURSE ---
pt medicated per DEC, zofran 4mg given for c/o nausea. APAP 650mg given for 10/10 headache
== END 2023-02-13 12:50 | disposition home or self-care (01) ==
PROVIDERS: Physician Assistant; Emergency Provider Emergency Medicine; PCP Internal Medicine
DX: J02.0 Streptococcal pharyngitis (principal)
CPT/HCPCS: 87651; 99283

== ENCOUNTER 2023-04-02 21:33 | Emergency (ER) | payer MEDICAID, SELFPAY ==
--- NOTE | ~2023-04-02 | CT_ITS ---
EXAMINATION: CT ABDOMEN AND PELVIS WITHOUT CONTRAST CLINICAL INFORMATION: Right lower quadrant pain COMPARISON: 06/27/2021 TECHNIQUE: Multidetector volumetric imaging was performed from the superior aspect of the liver through the pubic symphysis. Sagittal and coronal reformatted images were obtained on the technologist's workstation. This CT examination was performed using dose optimization techniques as appropriate, variously including the following: *Automated exposure control *Adjustment of mA and/or kV according to patient size (this includes techniques or standardized protocols for targeted exams where dose is matched to indication/reason for exam; i.e. extremities or head) *Use of iterative reconstruction technique DLP: 623 mGy-cm FINDINGS: LUNG BASES: Bibasilar atelectasis. LIVER, GALLBLADDER, AND BILIARY TREE: The liver is normal in size and shape with decreased attenuation. No focal hepatic lesion or biliary ductal dilatation is present. Cholecystectomy. PANCREAS: Unremarkable. SPLEEN: Unremarkable. ADRENAL GLANDS: Unremarkable. KIDNEYS AND URETERS: The kidneys are normal in size, shape, and attenuation. No hydronephrosis, hydroureter, or calculi seen. No perinephric stranding. BLADDER: Unremarkable. GASTROINTESTINAL TRACT: The stomach is unremarkable. Normal caliber small bowel. No obstruction. No colonic wall thickening or acute inflammation. Normal appendix. No free air or free fluid. ABDOMINAL WALL: No significant hernia is appreciated. LYMPH NODES: Normal. VASCULAR: Unremarkable. PELVIC VISCERA: The uterus and adnexa are unremarkable. OSSEOUS STRUCTURES: No acute or suspicious osseous abnormality. CT/CT abdomen pelvis wo IV con IMPRESSION: 1. No acute findings in the abdomen or pelvis. Normal appendix. 2. Hepatic steatosis. Fleischner guidelines were followed.
[2023-04-02 21:55] VITALS: BP 126/61; PULSE 91; RESP 16; TEMP 37; O2SAT 97; BMI 34.2
[2023-04-03 01:12] VITALS: BP 141/65; PULSE 93; RESP 16; TEMP 36.1; O2SAT 98
--- NOTE | 2023-04-03 01:19 | MHC.EDTECH ---
PATIENT URINE SAMPLE COLLECTED ,BLOOD DRAWN AND SENT TO LAB ,VITALS SIGN TAKEN .
[2023-04-03 01:21] LABS: Hematocrit 37.3 % (37.0-47.0); Hemoglobin 12.4 g/dl (12.0-16.0); Mean Corpuscular HGB Conc 33.2 g/dl (31.0-35.0); Mean Corpuscular Volume 96.4 fL (80.0-98.0); Mean Platelet Volume 10.7 fL (9.4-12.3); Platelet Count 244 X10*3/uL (160-400); Red Blood Count 3.87 X10*6/uL (4.20-5.50); Red Cell Distribution Width 13.4 % (11.0-16.0); White Blood Count 8.6 X10*3/uL (4.8-10.8)
[2023-04-03 01:24] LABS: Appearance Urine Clear; Color Urine Yellow; Glucose Urine UA Negative (Negative); Leukocyte Esterase Urine Negative (Negative); Nitrite Urine Negative (Negative); Specific Gravity - Urine >= 1.030 (1.005-1.025); Urine Blood Negative (Negative); Urine Ketones 15 mg/dL (Negative); Urine Protein Negative (Neg-Trace)
[2023-04-03 01:56] LABS: Alanine Aminotransferase 77 U/L (0-31); Albumin Level 4.3 g/dL (3.5-5.0); Alkaline Phosphatase 74 U/L (39-117); Anion Gap 16 (12-20); Aspartate Amino Transferase 52 U/L (5-31); Bilirubin Total 0.5 mg/dL (0.0-1.0); Blood Urea Nitrogen 11 mg/dL (9-16); Calcium 9.8 mg/dL (8.4-10.2); Carbon Dioxide 24 mmol/L (22-29); Chloride 103 mmol/L (96-108); Creatinine Clr Calc Pharmacy 115.1; Estimated Glomerular Filt Rate > 60; Glucose Random 152 mg/dL (60-115); Potassium 4.2 mmol/L (3.3-5.1); Sodium 139 mmol/L (135-145)
[2023-04-03 03:28] VITALS: BP 122/53; PULSE 81; RESP 18; TEMP 36.6; O2SAT 99
--- NOTE | 2023-04-03 04:40 | ED.ABDPAIN ---
HPI - Abdominal Pain General Chief Complaint: Abdominal Pain Stated Complaint: lower right flank pain Time Seen by Provider: 04/03/23 03:49 History of Present Illness HPI narrative: Patient is a 32-year-old female presents today with having 2 day history of abdominal pain. The pain is worse over the right lower quadrant. Patient is status post cholecystectomy in the past. There is no fever no chills. There is no pain on urination. There is no change in bowel movements. No history of obstructions in the past. She is from home. Related Data Home Medications Medication Instructions Recorded Confirmed divalproex 500 mg tablet,extended 1 tab PO BID 12/29/22 12/29/22 release 24 hr Previous Rx's Medication Instructions Recorded naproxen 500 mg tablet 500 mg PO BID PRN pain #14 tabs 09/29/22 Magic Mouthwash 5 ml PO TID #240 mL 12/25/22 Diphen/Lido/Antacid 1:1:1 240 mL suspension amoxicillin 875 mg-potassium 1 tab PO BID 10 days #20 tabs 12/25/22 clavulanate 125 mg tablet prednisone 20 mg tablet 40 mg PO DAILY 5 days #10 tabs 12/25/22 divalproex 250 mg tablet,delayed 250 mg PO DAILY #30 tabs 01/04/23 release guaifenesin 100 mg/5 mL oral liquid 5 ml PO Q4H PRN cough #80 mL 01/04/23 metformin 1,000 mg tablet 1,000 mg PO BIDWM #60 tabs 01/04/23 prednisone 20 mg tablet 20 mg PO DAILY 7 days #7 tabs 02/08/23 amoxicillin 500 mg capsule 500 mg PO BID #20 caps 02/13/23 ondansetron 4 mg disintegrating 4 mg PO TID PRN nausea and 04/03/23 tablet vomiting 5 days #10 tabs Allergies Allergy/AdvReac Type Severity Reaction Status Date / Time Iodinated Contrast Media Allergy Intermediate Facial Verified 02/13/23 11:30 Swelling clindamycin [CLINDAMYCIN] Allergy Unknown ANAPHYLAXIS Verified 02/13/23 11:30 Review of Systems Review of Systems Positive right lower quadrant Yes all other systems are reviewed and are negative PMFSH Past Medical History Attestation statement: The following information was validated with the patient. Medical History Diabetes mellitus Epilepsy Surgical History Hx of cholecystectomy Social History Social History Household Members: Spouse and Children Housing: Apartment Do you presently have visiting nurse or other home services: No Alcohol intake: never Patient Tobacco Use Status: Never used Tobacco Smoked in Last 30 Days: No Use of substances other than those prescribed or required for medical reasons: No Advance Directives: No Advance Directives Information Provided: No Patient : No service: No Current occupational status: employed Physical Exam ED Vital Signs: Vital Signs - 24 hr 04/02/23 21:55 04/03/23 01:12 04/03/23 03:28 Temperature 98.6 F 97.0 F 97.8 F Pulse Rate 91 93 81 Respiratory Rate 16 16 18 Blood Pressure 126/61 141/65 H 122/53 L Pulse Oximetry 97 98 99 Oxygen Delivery Method Room Air Room Air Room Air BMI result Body Mass Index 34.2 Appearance: Alert. Oriented X3. No acute distress. Eyes: Pupils equal, round and reactive to light. ENT: Pharynx normal. Neck: Normal inspection. Neck supple. No lymph nodes noted. No crepitus CVS: Normal heart rate and rhythm. Pulses normal. Normal S1 and S2 Respiratory: No respiratory distress. Breath sounds normal. No Wheezing. No rales Abdomen: Soft and nontender. No rigidity. No distention. good BS x4 Skin: Skin warm and dry. Normal skin color. Normal skin turgor. Extremities: No lower extremity edema. Neurovascular intact to all extremities. No Lacerations. No Rash Neuro: Oriented X 3. No motor deficit. No sensory deficit. Moving all extermities. No slurred speech Medical Decision Making Medical Decision Making MDM Narrative: Positive abdominal pain. Worse in the lower abdomen. Patient has a normal white count. Urine showed no signs of UTI. Status post cholecystectomy CT scan of the abdomen pelvis was negative for any acute evidence of kidney stone. No evidence for appendicitis. Will discharge patient home. Motrin for pain. In stable condition. Differential Diagnosis Obstruction, abscess, perforation, appendicitis, diverticulitis, kidney stone Lab Data [facility] Lab Attestation statement: I reviewed the patient's lab results. 04/03/23 01:17 04/03/23 01:16 Labs: Lab Results 04/03/23 04/03/23 04/03/23 Range/Units 01:16 01:16 01:16 WBC (4.8-10.8) X10*3/uL RBC (4.20-5.50) X10*6/uL Hgb (12.0-16.0) g/dl Hct (37.0-47.0) % MCV (80.0-98.0) fL MCH (27.0-33.0) pg MCHC (31.0-35.0) g/dl RDW (11.0-16.0) % Plt Count (160-400) X10*3/uL MPV (9.4-12.3) fL Absolute Nucleated RBC (0.0-0.012) X10*3/uL Nucleated RBC % (auto) (0.0-0.2) /100WBC Sodium 139 (135-145) mmol/L Potassium 4.2 (3.3-5.1) mmol/L Chloride 103 (96-108) mmol/L Carbon Dioxide 24 (22-29) mmol/L Anion Gap 16 (12-20) BUN 11 (9-16) mg/dL Creatinine 0.66 (0.5-1.4) mg/dL Estim Creat Clear Calc 115.1 Estimated GFR > 60 Random Glucose 152 H (60-115) mg/dL Calcium 9.8 D (8.4-10.2) mg/dL Total Bilirubin 0.5 (0.0-1.0) mg/dL AST 52 H (5-31) U/L ALT 77 H (0-31) U/L Alkaline Phosphatase 74 (39-117) U/L Total Protein 8.0 (6.5-8.0) g/dL Albumin 4.3 (3.5-5.0) g/dL Urine Color Yellow Urine Appearance Clear Urine pH 6.0 (5.0-9.0) Ur Specific [place] >= 1.030 H (1.005-1.025) Urine Protein Negative (Neg-Trace) mg/dL Urine Glucose (UA) Negative (Negative) mg/dL Urine Ketones 15 (Negative) mg/dL Urine Blood Negative (Negative) Urine Nitrite Negative (Negative) Ur Leukocyte Esterase Negative (Negative) Urine Test NEGATIVE (NEGATIVE) 04/03/23 Range/Units 01:17 WBC 8.6 (4.8-10.8) X10*3/uL RBC 3.87 L (4.20-5.50) X10*6/uL Hgb 12.4 (12.0-16.0) g/dl Hct 37.3 (37.0-47.0) % MCV 96.4 (80.0-98.0) fL MCH 32.0 (27.0-33.0) pg MCHC 33.2 (31.0-35.0) g/dl RDW 13.4 (11.0-16.0) % Plt Count 244 (160-400) X10*3/uL MPV 10.7 (9.4-12.3) fL Absolute Nucleated RBC 0.000 (0.0-0.012) X10*3/uL Nucleated RBC % (auto) 0.0 (0.0-0.2) /100WBC Sodium (135-145) mmol/L Potassium (3.3-5.1) mmol/L Chloride (96-108) mmol/L Carbon Dioxide (22-29) mmol/L Anion Gap (12-20) BUN (9-16) mg/dL Creatinine (0.5-1.4) mg/dL Estim Creat Clear Calc Estimated GFR Random Glucose (60-115) mg/dL Calcium (8.4-10.2) mg/dL Total Bilirubin (0.0-1.0) mg/dL AST (5-31) U/L ALT (0-31) U/L Alkaline Phosphatase (39-117) U/L Total Protein (6.5-8.0) g/dL Albumin (3.5-5.0) g/dL Urine Color Urine Appearance Urine pH (5.0-9.0) Ur Specific [place] (1.005-1.025) Urine Protein (Neg-Trace) mg/dL Urine Glucose (UA) (Negative) mg/dL Urine Ketones (Negative) mg/dL Urine Blood (Negative) Urine Nitrite (Negative) Ur Leukocyte Esterase (Negative) Urine Test (NEGATIVE) Chronic Conditions Patient?s care impacted by: Diabetes Medications Administered Discontinued Medications Generic Name Dose Route Start Last Admin Trade Name Freq PRN Reason Stop Dose Admin Hydromorphone HCl 0.5 mg 04/03/23 04:39 04/03/23 05:14 Hydromorphone Hcl 0.5 Mg/0.5 Ml Syringe IVPUSH 04/03/23 04:40 0.5 mg ONCE ONE Administration Protocol Sodium Chloride 1,000 mls @ 999 mls/hr 04/03/23 04:45 04/03/23 05:14 Ns IV 04/03/23 05:45 999 mls/hr .Q1H1M NAVEEN Administration Ondansetron HCl 4 mg 04/03/23 04:39 04/03/23 05:14 Ondansetron Hcl 4 Mg/2 Ml Vial IVPUSH 04/03/23 04:40 4 mg ONCE ONE Administration Discharge Plan Discharge Clinical Impression: Abdominal pain Patient Disposition: Home, Self-Care Instructions: Abdominal Pain (ED) Prescriptions: New ondansetron 4 mg tablet,disintegrating 4 mg PO TID PRN (Reason: nausea and vomiting) 5 Days Qty: 10 0RF No Action naproxen 500 mg tablet 500 mg PO BID PRN (Reason: pain) Qty: 14 0RF prednisone 20 mg tablet 40 mg PO DAILY 5 Days Qty: 10 0RF amoxicillin-pot clavulanate 875-125 mg tablet 1 tab PO BID 10 Days Qty: 20 0RF Magic Mouthwash Diphen/Lido/Antacid 1:1:1 240 mL suspension 5 ml PO TID Qty: 240 0RF Rx Instructions: Lidocaine Viscous 2 % 80mL; diphenhydramine 12.5 mg/5 mL 80mL; aluminum-mag hydrox-simeth [id number]/5mL 80mL Swish and spit, do not swallow divalproex 500 mg tablet extended release 24 hr 1 tab PO BID metformin 1,000 mg Tablet 1,000 mg PO BIDWM Qty: 60 0RF guaifenesin 100 mg/5 mL Liquid 5 ml PO Q4H PRN (Reason: cough) Qty: 80 0RF divalproex 250 mg tablet,delayed release (DR/EC) 250 mg PO DAILY Qty: 30 0RF amoxicillin 500 mg capsule 500 mg PO BID Qty: 20 0RF prednisone 20 mg tablet 20 mg PO DAILY 7 Days Qty: 7 0RF Referrals: Kath Venegas MD [Primary Care Provider] - 04/05/23
[2023-04-03 04:46] LABS: UPreg QC Valid YES; Urine Pregnancy NEGATIVE (NEGATIVE)
[2023-04-03] MEDS: 0.9 % Sodium Chloride 1,000 ML 999 ML IV (05:14)
[2023-04-03] MEDS: HYDROmorphone HCl 0.5 MG/0.5 ML SYRINGE IVPUSH (05:14)
[2023-04-03] MEDS: ondansetron HCL 4 MG/2 ML VIAL IVPUSH (05:14)
== END 2023-04-03 07:26 | disposition home or self-care (01) ==
PROVIDERS: Emergency Medicine; Emergency Provider Emergency Medicine Emergency Medical Services; PCP Internal Medicine
DX: R10.31 Right lower quadrant pain (principal); E11.9 Type 2 diabetes mellitus without complications; Z90.49 Acquired absence of other specified parts of digestive tract; Z79.899 Other long term (current) drug therapy
CPT/HCPCS: 36415; 74176; 80053; 81003; 81025; 85027; 96374; 96375; 99284; J1170; J2405

== ENCOUNTER 2023-04-06 12:21 | Outpatient (REF) | payer MEDICAID, SELFPAY ==
--- NOTE | ~2023-04-06 | XR_ITS ---
EXAMINATION: XR LUMBOSACRAL SPINE CLINICAL INFORMATION: Pain x2 years. COMPARISON: CT scan abdomen and pelvis 3 days ago on 04/03/2023, lumbar spine 08/15/2019. TECHNIQUE: Three views of the lumbosacral spine. FINDINGS: Some mild degenerative changes are again seen in the lumbar spine. Again noted is some minimal scoliosis convex to the left. Mild disc space loss at L2-L3 and L3-L4. Some minimal endplate changes are seen with osteophytes. Compared to prior examinations, there has been no significant interval change in appearances. XR/XR lumbar spine 2-3V IMPRESSION: Mild degenerative changes in the lumbar spine, unchanged when compared to prior examinations.
== END 2023-04-06 12:22 | disposition home or self-care (01) ==
LOC: HO.HHCX 12:21
PROVIDERS: Visit Provider Internal Medicine
DX: M54.42 Lumbago with sciatica, left side (principal); M54.41 Lumbago with sciatica, right side
CPT/HCPCS: 72100

== ENCOUNTER 2023-04-14 19:11 | Emergency (ER) | payer MEDICAID, SELFPAY ==
--- NOTE | 2023-04-14 | ECG_ITS ---
Test Reason : SEIZURE Blood Pressure : / mmHG Vent. Rate : 085 BPM Atrial Rate : 085 BPM P-R Int : 140 ms QRS Dur : 088 ms QT Int : 366 ms P-R-T Axes : 055 053 039 degrees QTc Int : 435 ms Normal sinus rhythm Normal ECG When compared with ECG of 29-DEC-2022 12:01, No significant change was found Referred By: Generic ED Physician Electronically Signed By:GETACHEW ABBOTT MD
--- NOTE | ~2023-04-14 | XR_ITS ---
EXAMINATION: XR CHEST CLINICAL INFORMATION: Cough. COMPARISON: Chest radiograph 12/29/2022. TECHNIQUE: Frontal view of the chest was obtained. FINDINGS: Normal appearance of the cardiomediastinal silhouette. Mild bronchial thickening. No focal infiltrate. No pleural effusion or pneumothorax. No acute osseous abnormalities. XR/XR chest 1V IMPRESSION: Findings suggesting small airways disease or atypical/viral infections.
[2023-04-14 19:18] VITALS: BP 134/59; PULSE 92; RESP 18; TEMP 37.2; O2SAT 99; BMI 25.8
--- NOTE | 2023-04-14 20:01 | ED_ITS ---
HPI - Seizure General Chief Complaint: Seizure Stated Complaint: seizure, fever Time Seen by Provider: 04/14/23 19:46 Source: patient Mode of arrival: wheelchair Limitations: no limitations History of Present Illness HPI Narrative: Patient comes to the emergency room complaining of cough and using her appear inhaler more than usual. I was informed that the patient had a nonepileptic pseudo-seizure while she was in triage. While patient was having tonic clonic seizure activity, patient was able to follow directions at the same time and transfer with assistance from the wheelchair to the chair. Patient was not postictal. Patient states that she has been using her albuterol pump at home. At this time, patient denies wheezing or shortness of breath. Seizure History: Yes Related Data Home Medications Medication Instructions Recorded Confirmed divalproex 500 mg tablet,extended 1 tab PO BID 12/29/22 12/29/22 release 24 hr Previous Rx's Medication Instructions Recorded naproxen 500 mg tablet 500 mg PO BID PRN pain #14 tabs 09/29/22 Magic Mouthwash 5 ml PO TID #240 mL 12/25/22 Diphen/Lido/Antacid 1:1:1 240 mL suspension amoxicillin 875 mg-potassium 1 tab PO BID 10 days #20 tabs 12/25/22 clavulanate 125 mg tablet prednisone 20 mg tablet 40 mg PO DAILY 5 days #10 tabs 12/25/22 divalproex 250 mg tablet,delayed 250 mg PO DAILY #30 tabs 01/04/23 release guaifenesin 100 mg/5 mL oral liquid 5 ml PO Q4H PRN cough #80 mL 01/04/23 metformin 1,000 mg tablet 1,000 mg PO BIDWM #60 tabs 01/04/23 prednisone 20 mg tablet 20 mg PO DAILY 7 days #7 tabs 02/08/23 amoxicillin 500 mg capsule 500 mg PO BID #20 caps 02/13/23 ondansetron 4 mg disintegrating 4 mg PO TID PRN nausea and 04/03/23 tablet vomiting 5 days #10 tabs prednisone 50 mg tablet 50 mg PO DAILY #5 tabs 04/14/23 Allergies Allergy/AdvReac Type Severity Reaction Status Date / Time Iodinated Contrast Media Allergy Intermediate Facial Verified 02/13/23 11:30 Swelling clindamycin [CLINDAMYCIN] Allergy Unknown ANAPHYLAXIS Verified 02/13/23 11:30 Review of Systems Review of Systems: Constitutional : No Weight loss, No Fever, No Chills, No Night Sweats, No Fatigue, No Malaise ENT/Mouth : No Hearing loss, No Ear Pain, No Nasal Congestion, No Sinus Pain, No Hoarseness, No sore throat, No Rhinorrhea, No Swallowing Difficulty Eyes: No Eye Pain, No Swelling, No Redness, No Foreign Body, No Discharge, No Vision Changes Cardiovascular : No Chest Pain, No SOB, No Dyspnea on Exertion, No Orthopnea, No Edema, No Palpitations Respiratory : No Cough, No Sputum, complaining of Wheezing, No Smoke Exposure, No Dyspnea Gastrointestinal : No Nausea, No Vomiting, No Diarrhea, No Constipation, No abdominal Pain, No Hematochezia, No Melena Genitourinary : no irregular bleeding, No Dysuria, No Urinary Frequency, No Hematuria, No Urinary Incontinence, No Urgency, No Flank Pain, No Urinary Flow Changes, No Hesitancy Musculoskeletal : No joint pain, No Myalgias, No Joint Swelling Skin : No Skin Lesions, No rash Neuro : No Weakness, No Numbness, No Paresthesias, No Loss of Consciousness, No Dizziness, No Headache, had an pseudo-seizure in the triage room Psych : No Anxiety/Panic, No Depression, No SI/HI/AH/VH, No Social Issues, Heme/Lymph: No Bruising, No Bleeding,No Lymphadenopathy Endocrine : No Polyuria, No Polydipsia, No Temperature Intolerance PMFSH Past Medical History Medical History Diabetes mellitus Epilepsy Surgical History Hx of cholecystectomy Social History Social History Household Members: Spouse and Children Housing: Apartment Do you presently have visiting nurse or other home services: No Alcohol intake: never Patient Tobacco Use Status: Never used Tobacco Smoked in Last 30 Days: No Use of substances other than those prescribed or required for medical reasons: No Advance Directives: No Advance Directives Information Provided: No Patient : No service: No Current occupational status: employed Physical Exam Vital Signs: Vital Signs: Last Vital Signs Temp 98.5 F 04/14/23 21:29 Pulse 89 04/14/23 21:29 Resp 17 04/14/23 21:29 BP 133/69 04/14/23 21:29 Pulse Ox 97 04/14/23 21:29 O2 Del Method Room Air 04/14/23 21:29 BMI result Body Mass Index 25.8 Const: Other: Appearance: Alert. Oriented X3. No acute distress. Eyes: Pupils equal, round and reactive to light. ENT: Pharynx normal. Neck: Normal inspection. Neck supple. No lymph nodes noted. No crepitus CVS: Normal heart rate and rhythm. Pulses normal. Normal S1 and S2 Respiratory: No respiratory distress. Breath sounds normal. No Wheezing. No rales Abdomen: Soft and nontender. No rigidity. No distention. Skin: Skin warm and dry. Normal skin color. Normal skin turgor. Extremities: No lower extremity edema. No Lacerations. No Rash Neuro: Oriented X 3. No motor deficit. No sensory deficit. Moving all extremities. No slurred speech. CN 2 through 12 grossly intact Psych: calm, cooperative, normal affect Course Course Course Narrative: -patient states that she has been coughing and using her inhaler more frequent than usual. Patient will be given a dose of Solu-Medrol. At this time, patient is awake, alert, not postictal -patient's labs and chest x-ray pending. Medications Administered Discontinued Medications Generic Name Dose Route Start Last Admin Trade Name Freq PRN Reason Stop Dose Admin Sodium Chloride 1,000 mls @ 999 mls/hr 04/14/23 20:40 04/14/23 22:25 Ns IVCONT 04/14/23 21:40 Infused .Q1H1M ONE Infusion Methylprednisolone Sodium Succinate 125 mg 04/14/23 20:03 04/14/23 20:12 Methylprednisolone Sod Succ 125 Mg/2 Ml Vial IVPUSH 04/14/23 20:04 125 mg ONCE ONE Administration Medical Decision Making Medical Decision Making [facility] Narrative: -patient's lactic acid 2.7, secondary to frequent albuterol inhalation, patient has chronic elevated lactic acidosis. -patient has been awake, alert and oriented x3, no seizure-like activity, no postictal state -patient is not wheezing, oxygen saturation 97% on room air -chest x-ray shows small airway/typical/viral infection, no pneumonia, antibiotics not indicated. Lab Data [facility] Lab Attestation statement: I reviewed the patient's lab results. 04/14/23 20:06 04/14/23 20:06 Labs: Lab Results 04/14/23 04/14/23 04/14/23 Range/Units 20:06 20:06 20:06 WBC 7.5 (4.8-10.8) X10*3/uL RBC 3.72 L (4.20-5.50) X10*6/uL Hgb 11.9 L (12.0-16.0) g/dl Hct 35.7 L (37.0-47.0) % MCV 96.0 (80.0-98.0) fL MCH 32.0 (27.0-33.0) pg MCHC 33.3 (31.0-35.0) g/dl RDW 13.4 (11.0-16.0) % Plt Count 261 (160-400) X10*3/uL MPV 10.6 (9.4-12.3) fL Immature Gran % (Auto) 0.3 (0.0-0.4) % Neut % (Auto) 55.6 (45-73) % Lymph % (Auto) 35.0 (20-40) % Tillman % (Auto) 8.2 (2-11) % Eos % (Auto) 0.5 (0-4) % Baso % (Auto) 0.4 (0-2) % Lymph # (Auto) 2.6 (1.2-4.9) X10*3/uL Tillman # (Auto) 0.6 (0.1-1.2) X10*3/uL Eos # (Auto) 0.0 (0.0-0.4) X10*3/uL Baso # (Auto) 0.0 (0.0-0.2) X10*3/uL Abs Immat Gran (auto) 0.02 (0.00-0.03) X10*3/uL Absolute Neuts (auto) 4.1 (2.0-8.3) x10*3/uL Absolute Nucleated RBC 0.000 (0.0-0.012) X10*3/uL Nucleated RBC % (auto) 0.0 (0.0-0.2) /100WBC Sodium 140 (135-145) mmol/L Potassium 3.7 (3.3-5.1) mmol/L Chloride 100 (96-108) mmol/L Carbon Dioxide 27 (22-29) mmol/L Anion Gap 17 (12-20) BUN 10 (9-16) mg/dL Creatinine 0.64 (0.5-1.4) mg/dL Estim Creat Clear Calc 139.1 Estimated GFR > 60 Random Glucose 130 H (60-115) mg/dL Lactic Acid 2.7 H* (0.5-2.0) mmol/L Lactic Acid F/U @ 2Hr (0.5-2.0) mmol/L Calcium 9.7 (8.4-10.2) mg/dL 04/14/23 Range/Units 22:30 WBC (4.8-10.8) X10*3/uL RBC (4.20-5.50) X10*6/uL Hgb (12.0-16.0) g/dl Hct (37.0-47.0) % MCV (80.0-98.0) fL MCH (27.0-33.0) pg MCHC (31.0-35.0) g/dl RDW (11.0-16.0) % Plt Count (160-400) X10*3/uL MPV (9.4-12.3) fL Immature Gran % (Auto) (0.0-0.4) % Neut % (Auto) (45-73) % Lymph % (Auto) (20-40) % Tillman % (Auto) (2-11) % Eos % (Auto) (0-4) % Baso % (Auto) (0-2) % Lymph # (Auto) (1.2-4.9) X10*3/uL Tillman # (Auto) (0.1-1.2) X10*3/uL Eos # (Auto) (0.0-0.4) X10*3/uL Baso # (Auto) (0.0-0.2) X10*3/uL Abs Immat Gran (auto) (0.00-0.03) X10*3/uL Absolute Neuts (auto) (2.0-8.3) x10*3/uL Absolute Nucleated RBC (0.0-0.012) X10*3/uL Nucleated RBC % (auto) (0.0-0.2) /100WBC Sodium (135-145) mmol/L Potassium (3.3-5.1) mmol/L Chloride (96-108) mmol/L Carbon Dioxide (22-29) mmol/L Anion Gap (12-20) BUN (9-16) mg/dL Creatinine (0.5-1.4) mg/dL Estim Creat Clear Calc Estimated GFR Random Glucose (60-115) mg/dL Lactic Acid (0.5-2.0) mmol/L Lactic Acid F/U @ 2Hr 2.6 H* (0.5-2.0) mmol/L Calcium (8.4-10.2) mg/dL Radiology Impression Discussion of test interpretation with radiology: I have reviewed the radio logist's reading. Radiologist Impression: FINDINGS: Normal appearance of the cardiomediastinal silhouette. Mild bronchial thickening. No focal infiltrate. No pleural effusion or pneumothorax. No acute osseous abnormalities. XR/XR chest 1V IMPRESSION: Findings suggesting small airways disease or atypical/viral infections. Discharge Plan Discharge Clinical Impression: Asthma, Acute viral bronchitis Patient Disposition: Home, Self-Care Instructions: Asthma (ED), Acute Bronchitis (ED) Additional Instructions: Please follow-up with your primary care physician tomorrow. If you have any worsening or new symptoms, please return to the emergency room or call 911 Prescriptions: New prednisone 50 mg tablet 50 mg PO DAILY Qty: 5 0RF No Action naproxen 500 mg tablet 500 mg PO BID PRN (Reason: pain) Qty: 14 0RF prednisone 20 mg tablet 40 mg PO DAILY 5 Days Qty: 10 0RF amoxicillin-pot clavulanate 875-125 mg tablet 1 tab PO BID 10 Days Qty: 20 0RF Magic Mouthwash Diphen/Lido/Antacid 1:1:1 240 mL suspension 5 ml PO TID Qty: 240 0RF Rx Instructions: Lidocaine Viscous 2 % 80mL; diphenhydramine 12.5 mg/5 mL 80mL; aluminum-mag hydrox-simeth [id number]/5mL 80mL Swish and spit, do not swallow divalproex 500 mg tablet extended release 24 hr 1 tab PO BID metformin 1,000 mg Tablet 1,000 mg PO BIDWM Qty: 60 0RF guaifenesin 100 mg/5 mL Liquid 5 ml PO Q4H PRN (Reason: cough) Qty: 80 0RF divalproex 250 mg tablet,delayed release (DR/EC) 250 mg PO DAILY Qty: 30 0RF amoxicillin 500 mg capsule 500 mg PO BID Qty: 20 0RF ondansetron 4 mg tablet,disintegrating 4 mg PO TID PRN (Reason: nausea and vomiting) 5 Days Qty: 10 0RF prednisone 20 mg tablet 20 mg PO DAILY 7 Days Qty: 7 0RF
[2023-04-14 20:11] LABS: MANUAL DIFF FLAG NO
[2023-04-14] MEDS: methylPREDNISolone Sod Succ 125 MG/2 ML VIAL IVPUSH (20:12)
--- NOTE | 2023-04-14 20:16 | PC.NURSE ---
this rn assumed care of pt from waiting room. pt placed on air sampling and monitoring discharge door operator placed iv. blood work and ekg obtained. pt medicated according to ailyn
[2023-04-14 20:19] LABS: Basophils Percent Auto 0.4 % (0-2); Eosinophils Percent Auto 0.5 % (0-4); Hematocrit 35.7 % (37.0-47.0); Hemoglobin 11.9 g/dl (12.0-16.0); Imm Gran Abs Auto 0.02 X10*3/uL (0.00-0.03); Imm Gran Pct Auto 0.3 % (0.0-0.4); Lymphocytes Absolute Auto 2.6 X10*3/uL (1.2-4.9); Mean Corpuscular HGB Conc 33.3 g/dl (31.0-35.0); Mean Platelet Volume 10.6 fL (9.4-12.3); Monocytes Absolute Auto 0.6 X10*3/uL (0.1-1.2); Monocytes Percent Auto 8.2 % (2-11); Neutrophils Absolute Auto 4.1 x10*3/uL (2.0-8.3); Neutrophils Percent Auto 55.6 % (45-73); Platelet Count 261 X10*3/uL (160-400); Red Blood Count 3.72 X10*6/uL (4.20-5.50); Red Cell Distribution Width 13.4 % (11.0-16.0); White Blood Count 7.5 X10*3/uL (4.8-10.8)
[2023-04-14 20:28] LABS: Anion Gap 17 (12-20); Blood Urea Nitrogen 10 mg/dL (9-16); Calcium 9.7 mg/dL (8.4-10.2); Carbon Dioxide 27 mmol/L (22-29); Chloride 100 mmol/L (96-108); Creatinine Clr Calc Pharmacy 139.1; Estimated Glomerular Filt Rate > 60; Glucose Random 130 mg/dL (60-115); Potassium 3.7 mmol/L (3.3-5.1); Sodium 140 mmol/L (135-145)
[2023-04-14 20:29] LABS: Lactic Acid 2.7 mmol/L (0.5-2.0)
[2023-04-14] MEDS: 0.9 % Sodium Chloride 1,000 ML 999 ML IVCONT (20:49)
--- NOTE | 2023-04-14 20:50 | PC.NURSE ---
fluids infusing per MAR
[2023-04-14 20:52] VITALS: BP 126/47; PULSE 100; RESP 22; O2SAT 97
[2023-04-14 21:29] VITALS: BP 133/69; PULSE 89; RESP 17; TEMP 36.9; O2SAT 97
--- NOTE | 2023-04-14 22:08 | PC.NURSE ---
pt resting on stretcher positioned on back at this time. HOB elevated.
[2023-04-14 22:09] LABS: Reflex Lactate? Lactic Acid Added
[2023-04-14 22:57] LABS: ~Lactic Acid-LAB USE ONLY 2.6 mmol/L (0.5-2.0)
[2023-04-14 23:35] VITALS: BP 105/55; PULSE 73; RESP 23; TEMP 36.8; O2SAT 94
--- NOTE | 2023-04-14 23:41 | PC.NURSE ---
this rn removed iv at discharge. pt calm and cooperative. vss. pt ambulatory at discharge. pt provided with discharge packet. pt verbalized understanding of discharge plan. pt reports waiting for to drive home
[2023-04-15 00:33] LABS: Reflex Lactate? 2 Y
== END 2023-04-14 23:44 | disposition home or self-care (01) ==
PROVIDERS: Emergency Provider Emergency Medicine; PCP Internal Medicine
DX: J45.909 Unspecified asthma, uncomplicated (principal); J20.8 Acute bronchitis due to other specified organisms; E11.9 Type 2 diabetes mellitus without complications; Z79.899 Other long term (current) drug therapy; Z79.84 Long term (current) use of oral hypoglycemic drugs
CPT/HCPCS: 36415; 71045; 80048; 83605; 85025; 93005; 96361; 96374; 99284; J2930

== ENCOUNTER 2023-04-22 17:02 | Emergency (ER) | payer MEDICAID, SELFPAY ==
[2023-04-22 18:38] VITALS: BP 122/50; PULSE 85; RESP 18; TEMP 36.1; O2SAT 97; BMI 34.1
--- NOTE | 2023-04-22 18:39 | ED.EYEPROB ---
HPI - Eye Problem General Chief complaint: General Medical Stated complaint: Left eye pain/sore throat Time Seen by Provider: 04/22/23 19:45 Source: patient Mode of arrival: ambulatory Limitations: no limitations History of Present Illness HPI Narrative: Patient wear contact lenses noticed redness in left eye and yellowish discharge from the eye today when she woke up early today patient were contact lenses last time was 1 week ago Related Data Home Medications Medication Instructions Recorded Confirmed divalproex 500 mg tablet,extended 1 tab PO BID 12/29/22 12/29/22 release 24 hr Previous Rx's Medication Instructions Recorded naproxen 500 mg tablet 500 mg PO BID PRN pain #14 tabs 09/29/22 Magic Mouthwash 5 ml PO TID #240 mL 12/25/22 Diphen/Lido/Antacid 1:1:1 240 mL suspension amoxicillin 875 mg-potassium 1 tab PO BID 10 days #20 tabs 12/25/22 clavulanate 125 mg tablet prednisone 20 mg tablet 40 mg PO DAILY 5 days #10 tabs 12/25/22 divalproex 250 mg tablet,delayed 250 mg PO DAILY #30 tabs 01/04/23 release guaifenesin 100 mg/5 mL oral liquid 5 ml PO Q4H PRN cough #80 mL 01/04/23 metformin 1,000 mg tablet 1,000 mg PO BIDWM #60 tabs 01/04/23 prednisone 20 mg tablet 20 mg PO DAILY 7 days #7 tabs 02/08/23 amoxicillin 500 mg capsule 500 mg PO BID #20 caps 02/13/23 ondansetron 4 mg disintegrating 4 mg PO TID PRN nausea and 04/03/23 tablet vomiting 5 days #10 tabs benzonatate 100 mg capsule 100 mg PO TID PRN cough #12 caps 04/14/23 prednisone 50 mg tablet 50 mg PO DAILY #5 tabs 04/14/23 tobramycin 0.3 % eye drops 1 drp ophthalmic (eye) Q4H #5 mL 04/22/23 Allergies Allergy/AdvReac Type Severity Reaction Status Date / Time Iodinated Contrast Media Allergy Intermediate Facial Verified 02/13/23 11:30 Swelling clindamycin [CLINDAMYCIN] Allergy Unknown ANAPHYLAXIS Verified 02/13/23 11:30 Review of Systems Review of Systems: Yes all other systems are reviewed and are negative PMFSH Past Medical History Medical History Diabetes mellitus Epilepsy Surgical History Hx of cholecystectomy Social History Social History Household Members: Spouse and Children Housing: Apartment Do you presently have visiting nurse or other home services: No Alcohol intake: never Patient Tobacco Use Status: Never used Tobacco Advance Directives: No Advance Directives Information Provided: No service: No Current occupational status: employed Physical Exam Vital Signs: Vital Signs: Last Vital Signs Temp 97.0 F 04/22/23 18:38 Pulse 85 04/22/23 18:38 Resp 18 04/22/23 18:38 BP 122/50 L 04/22/23 18:38 Pulse Ox 97 04/22/23 18:38 O2 Del Method Room Air 04/22/23 18:38 BMI result Body Mass Index 34.1 Eyes: Eyes/upper lids images: 1. Slight erythema of palpebral conjunctiva no exudate cornea normal normal anterior chamber 2. Slight erythema of palpebral conjunctiva no exudate cornea normal, normal anterior chamber Course Course Course Narrative: This is an RME: Additional HPI, ROS, PE not included below will be deferred to primary provider. Patient is a 32-year-old female who presents emergency department with concerns of left eye pain. Awoke today with redness and discomfort to the left eye, and reports that it feels swollen. She does wear contact lenses. Denies any known injury, drainage. Denies vision changes. Discharge Plan Discharge Clinical Impression: Conjunctivitis Patient Disposition: Home, Self-Care Instructions: Conjunctivitis (ED) Additional Instructions: Use eye drops as prescribed Do not use contact lenses until get better Prescriptions: New tobramycin 0.3 % drops 1 drp ophthalmic (eye) Q4H Qty: 5 0RF No Action naproxen 500 mg tablet 500 mg PO BID PRN (Reason: pain) Qty: 14 0RF prednisone 20 mg tablet 40 mg PO DAILY 5 Days Qty: 10 0RF amoxicillin-pot clavulanate 875-125 mg tablet 1 tab PO BID 10 Days Qty: 20 0RF Magic Mouthwash Diphen/Lido/Antacid 1:1:1 240 mL suspension 5 ml PO TID Qty: 240 0RF Rx Instructions: Lidocaine Viscous 2 % 80mL; diphenhydramine 12.5 mg/5 mL 80mL; aluminum-mag hydrox-simeth [id number]/5mL 80mL Swish and spit, do not swallow divalproex 500 mg tablet extended release 24 hr 1 tab PO BID metformin 1,000 mg Tablet 1,000 mg PO BIDWM Qty: 60 0RF guaifenesin 100 mg/5 mL Liquid 5 ml PO Q4H PRN (Reason: cough) Qty: 80 0RF divalproex 250 mg tablet,delayed release (DR/EC) 250 mg PO DAILY Qty: 30 0RF amoxicillin 500 mg capsule 500 mg PO BID Qty: 20 0RF ondansetron 4 mg tablet,disintegrating 4 mg PO TID PRN (Reason: nausea and vomiting) 5 Days Qty: 10 0RF prednisone 50 mg tablet 50 mg PO DAILY Qty: 5 0RF benzonatate 100 mg capsule 100 mg PO TID PRN (Reason: cough) Qty: 12 0RF prednisone 20 mg tablet 20 mg PO DAILY 7 Days Qty: 7 0RF
[2023-04-22] MEDS: Tobramycin Sulfate 0.3% Sol Op 5 ML BTL 2 DROP EYE-BOTH (21:22)
== END 2023-04-22 21:30 | disposition home or self-care (01) ==
PROVIDERS: Emergency Provider Internal Medicine; PCP Internal Medicine
DX: H10.32 Unspecified acute conjunctivitis, left eye (principal)
CPT/HCPCS: 99282

== ENCOUNTER 2023-06-12 17:42 | Emergency (ER) | payer MEDICAID, SELFPAY ==
--- NOTE | ~2023-06-12 | CT_ITS ---
EXAMINATION: CT ABDOMEN AND PELVIS WITHOUT CONTRAST CLINICAL INFORMATION: Flank pain. COMPARISON: None available. TECHNIQUE: Multidetector volumetric imaging was performed from the superior aspect of the liver through the pubic symphysis. Sagittal and coronal reformatted images were obtained on the technologist's workstation. This CT examination was performed using dose optimization techniques as appropriate, variously including the following: *Automated exposure control. *Adjustment of mA and/or kV according to patient size (this includes techniques or standardized protocols for targeted exams where dose is matched to indication/reason for exam; i.e. extremities or head). *Use of iterative reconstruction technique. DLP: 578 mGy-cm FINDINGS: LUNG BASES: The visualized lung bases are unremarkable. LIVER, GALLBLADDER, AND BILIARY TREE: The liver is of mild diminished attenuation. No focal liver lesions are seen. There is no intrahepatic biliary duct dilatation. There has been a prior cholecystectomy. PANCREAS: Unremarkable. SPLEEN: Unremarkable. ADRENAL GLANDS: Unremarkable. KIDNEYS AND URETERS: The kidneys are normal in size, shape, and attenuation. There is a 1 mm nonobstructing calculus lower pole right kidney. There is no hydronephrosis. No perinephric stranding. BLADDER: Unremarkable. GASTROINTESTINAL TRACT: The small and large bowel are unremarkable. The appendix is unremarkable. ABDOMINAL WALL: No significant hernia is appreciated. LYMPH NODES: Normal. VASCULAR: Unremarkable. PELVIC VISCERA: Unremarkable. OSSEOUS STRUCTURES: Unremarkable. CT/CT abdomen pelvis wo IV con IMPRESSION: 1 mm nonobstructing calculus lower pole right kidney. No hydronephrosis. No acute intra-abdominal process. Fleischner guidelines were followed.
--- NOTE | 2023-06-12 17:55 | ED_ITS ---
HPI - General Adult General Chief complaint: Abdominal Pain Stated complaint: bilateral kidney pain Time Seen by Provider: 06/12/23 22:17 Source: patient Mode of arrival: ambulatory Limitations: no limitations History of Present Illness HPI narrative: Patient is a 32-year-old female who presents to the emergency department for evaluation of bilateral flank pain and intermittent dysuria. Denies fevers, chills, vomiting, hematuria, constipation, diarrhea, numbness or tingling of the lower extremities, precipitating injury, saddle anesthesia, bladder bowel dysfunction. Related Data Home Medications Medication Instructions Recorded Confirmed divalproex 500 mg tablet,extended 1 tab PO BID 12/29/22 12/29/22 release 24 hr Previous Rx's Medication Instructions Recorded naproxen 500 mg tablet 500 mg PO BID PRN pain #14 tabs 09/29/22 Magic Mouthwash 5 ml PO TID #240 mL 12/25/22 Diphen/Lido/Antacid 1:1:1 240 mL suspension amoxicillin 875 mg-potassium 1 tab PO BID 10 days #20 tabs 12/25/22 clavulanate 125 mg tablet prednisone 20 mg tablet 40 mg PO DAILY 5 days #10 tabs 12/25/22 divalproex 250 mg tablet,delayed 250 mg PO DAILY #30 tabs 01/04/23 release guaifenesin 100 mg/5 mL oral liquid 5 ml PO Q4H PRN cough #80 mL 01/04/23 metformin 1,000 mg tablet 1,000 mg PO BIDWM #60 tabs 01/04/23 prednisone 20 mg tablet 20 mg PO DAILY 7 days #7 tabs 02/08/23 amoxicillin 500 mg capsule 500 mg PO BID #20 caps 02/13/23 ondansetron 4 mg disintegrating 4 mg PO TID PRN nausea and 04/03/23 tablet vomiting 5 days #10 tabs benzonatate 100 mg capsule 100 mg PO TID PRN cough #12 caps 04/14/23 prednisone 50 mg tablet 50 mg PO DAILY #5 tabs 04/14/23 tobramycin 0.3 % eye drops 1 drp ophthalmic (eye) Q4H #5 mL 04/22/23 naproxen 500 mg tablet 500 mg PO BID #14 tabs 06/13/23 prednisone 20 mg tablet 20 mg PO DAILY #3 tabs 06/13/23 tamsulosin 0.4 mg capsule 0.4 mg PO DAILY #7 caps 06/13/23 Allergies Allergy/AdvReac Type Severity Reaction Status Date / Time Iodinated Contrast Media Allergy Intermediate Facial Verified 02/13/23 11:30 Swelling clindamycin [CLINDAMYCIN] Allergy Unknown ANAPHYLAXIS Verified 02/13/23 11:30 Review of Systems Review of Systems: Constitutional: No weight loss, fever, chills, weakness or fatigue. Skin: No rash or itching. Cardiovascular: No chest pain, chest pressure or chest discomfort. No palpitations or pedal edema. Respiratory: No shortness of breath, cough or sputum production. Gastrointestinal: Positive nausea. No anorexia, vomiting or diarrhea. Positive flank pain Genitourinary: Positive dysuria No urinary frequency or incontinence. Musculoskeletal: No muscle pain, back pain, joint pain or stiffness. Psychiatric: No depression or anxiety. Yes all other systems are reviewed and are negative [facility] Past Medical History Attestation statement: The following information was validated with the patient. Source: old records reviewed Medical History Diabetes mellitus Epilepsy Surgical History Hx of cholecystectomy Social History Social History Household Members: Spouse and Children Housing: Apartment Do you presently have visiting nurse or other home services: No Alcohol intake: never Patient Tobacco Use Status: Never used Tobacco Advance Directives: No Advance Directives Information Provided: No service: No Current occupational status: employed Physical Exam ED Vital Signs: Vital Signs - 24 hr 06/12/23 17:56 06/12/23 22:20 Temperature 98.0 F 97.9 F Pulse Rate 85 91 Respiratory Rate 18 17 Blood Pressure 131/67 132/59 L Pulse Oximetry 95 95 Oxygen Delivery Method Room Air Room Air BMI result Body Mass Index 34.1 Appearance: Alert.?Oriented to person, place and time. No acute distress.?Normal affect. Eyes: Pupils equal, round and reactive to light.? ENT: Pharynx normal.?? Neck: Normal inspection.? Neck supple.?? CVS: Heart sounds normal. Normal heart rate and rhythm.? Pulses normal.?? Respiratory: No respiratory distress.? Lung sounds clear to auscultation b ilaterally?? Abdomen: Soft and non-tender. Normoactive bowel sounds. Positive right CVA tenderness Skin: Skin warm and dry.? Normal skin color.? Extremities: No lower extremity edema.? Neuro: Moves all extremities spontaneously. Sensation intact bilaterally. No focal neuro deficits. Ambulates with normal steady gait. Course Course Course Narrative: This is an RME: Additional HPI, ROS, PE not included below will be deferred to primary provider. Patient is a 32 year old female with history of kidney stones presenting with bilateral flank pain and pain with urination. Plan: urine, labs, imaging Reevaluation(s) Reevaluation #1: Urinalysis is without evidence of infection, CMP is overall unremarkable aside from mildly elevated LFTs which is consistent with baseline, CBC is without leukocytosis. CT of the abdomen and pelvis revealing a 1 mm nonobstructive calculus of the lower pole of the right kidney, no evidence of pyelonephritis. I reviewed these findings with patient. Pain management in the ED with ketorolac IM. Advised treatment with tamsulosin, naproxen, prednisone and outpatient follow-up with Urology, reviewed worrisome signs and symptoms that would warrant re-evaluation in the emergency department. All questions answered. Time: 00:12 Medical Decision Making Medical Decision Making MDM Narrative: Patient is a 32-year-old female with past medical history of diabetes, remote history of renal calculi presenting for bilateral flank pain and dysuria. Overall she is well-appearing, nontoxic, afebrile. Examination notable for right CVA tenderness. Will obtain CBC to evaluate for leukocytosis/ anemia, CMP and lipase to evaluate for abnormal electrolytes /abnormal renal function/ abn ormal hepatic/biliary function, CT of the abdomen and pelvis and Urinalysis. Differential Diagnosis Differential Diagnoses: The differential diagnosis associated with the presentation includes (Pyelonephritis, urinary tract infection, ureteral calculi, obstructive calculi, hydronephrosis, appendicitis, diverticulitis, musculoskeletal pain, lumbar strain) Admission/Observation Consideration of admission/observation: Escalation of care including admission/observation considered (I considered admission for flank pain, see course narrative for further detail) Lab Data [facility] Lab Attestation statement: I reviewed the patient's lab results. (See course narrative for further detail) 06/12/23 18:24 06/12/23 18:24 Labs: Lab Results 06/12/23 06/12/23 06/12/23 Range/Units 18:24 18:24 22:23 WBC 7.8 (4.8-10.8) X10*3/uL RBC 3.73 L (4.20-5.50) X10*6/uL Hgb 12.2 (12.0-16.0) g/dl Hct 36.1 L (37.0-47.0) % MCV 96.8 (80.0-98.0) fL MCH 32.7 (27.0-33.0) pg MCHC 33.8 (31.0-35.0) g/dl RDW 13.2 (11.0-16.0) % Plt Count 300 (160-400) X10*3/uL MPV 10.8 (9.4-12.3) fL Immature Gran % (Auto) 0.3 (0.0-0.4) % Neut % (Auto) 49.1 (45-73) % Lymph % (Auto) 43.2 H (20-40) % Dickey % (Auto) 6.6 (2-11) % Eos % (Auto) 0.4 (0-4) % Baso % (Auto) 0.4 (0-2) % Lymph # (Auto) 3.4 (1.2-4.9) X10*3/uL Dickey # (Auto) 0.5 (0.1-1.2) X10*3/uL Eos # (Auto) 0.0 (0.0-0.4) X10*3/uL Baso # (Auto) 0.0 (0.0-0.2) X10*3/uL Abs Immat Gran (auto) 0.02 (0.00-0.03) X10*3/uL Absolute Neuts (auto) 3.8 (2.0-8.3) x10*3/uL Absolute Nucleated RBC 0.000 (0.0-0.012) X10*3/uL Nucleated RBC % (auto) 0.0 (0.0-0.2) /100WBC Sodium 140 (135-145) mmol/L Potassium 4.1 (3.3-5.1) mmol/L Chloride 103 (96-108) mmol/L Carbon Dioxide 28 (22-29) mmol/L Anion Gap 13 (12-20) BUN 15 (9-16) mg/dL Creatinine 0.67 (0.5-1.4) mg/dL Estim Creat Clear Calc 113.1 Estimated GFR > 60 Random Glucose 115 (60-115) mg/dL Calcium 10.0 (8.4-10.2) mg/dL Magnesium 1.8 (1.6-2.6) mg/dL Total Bilirubin 0.4 (0.0-1.0) mg/dL AST 47 H (5-31) U/L ALT 60 H (0-31) U/L Alkaline Phosphatase 58 (39-117) U/L Total Protein 8.1 H (6.5-8.0) g/dL Albumin 4.4 (3.5-5.0) g/dL Lipase 37 (8-78) U/L Beta HCG, Quant < 2 mIU/mL Urine Color Yellow Urine Appearance Clear Urine pH 5.5 (5.0-9.0) Ur Specific Hope 1.025 (1.005-1.025) Urine Protein Negative (Neg-Trace) mg/dL Urine Glucose (UA) Negative (Negative) mg/dL Urine Ketones Negative (Negative) mg/dL Urine Blood Negative (Negative) Urine Nitrite Negative (Negative) Ur Leukocyte Esterase Negative (Negative) Radiology Impression Discussion of test interpretation with radiology: I have reviewed the radiologist's reading. Radiologist Impression: CT/CT abdomen pelvis wo IV con IMPRESSION: 1 mm nonobstructing calculus lower pole right kidney. ? No hydronephrosis. ? No acute intra-abdominal process. Prescription Management I considered prescription management with: Pain Medication Chronic Conditions Patient?s care impacted by: Diabetes Discharge Plan Discharge Clinical Impression: Nephrolithiasis Patient Disposition: Home, Self-Care Instructions: Kidney Stones (ED) Additional Instructions: I have sent prescriptions to your pharmacy for naproxen to be used twice daily for pain, Flomax daily, and prednisone daily. Prednisone is a steroid which may increase your blood sugar levels, please monitor your blood sugar levels closely. Please contact urology in the morning to schedule a follow-up visit. Prescriptions: New naproxen 500 mg tablet 500 mg PO BID Qty: 14 0RF prednisone 20 mg tablet 20 mg PO DAILY Qty: 3 0RF tamsulosin 0.4 mg capsule 0.4 mg PO DAILY Qty: 7 0RF No Action naproxen 500 mg tablet 500 mg PO BID PRN (Reason: pain) Qty: 14 0RF prednisone 20 mg tablet 40 mg PO DAILY 5 Days Qty: 10 0RF amoxicillin-pot clavulanate 875-125 mg tablet 1 tab PO BID 10 Days Qty: 20 0RF Magic Mouthwash Diphen/Lido/Antacid 1:1:1 240 mL suspension 5 ml PO TID Qty: 240 0RF Rx Instructions: Lidocaine Viscous 2 % 80mL; diphenhydramine 12.5 mg/5 mL 80mL; aluminum-mag hydrox-simeth [id number]/5mL 80mL Swish and spit, do not swallow divalproex 500 mg tablet extended release 24 hr 1 tab PO BID metformin 1,000 mg Tablet 1,000 mg PO BIDWM Qty: 60 0RF guaifenesin 100 mg/5 mL Liquid 5 ml PO Q4H PRN (Reason: cough) Qty: 80 0RF divalproex 250 mg tablet,delayed release (DR/EC) 250 mg PO DAILY Qty: 30 0RF amoxicillin 500 mg capsule 500 mg PO BID Qty: 20 0RF ondansetron 4 mg tablet,disintegrating 4 mg PO TID PRN (Reason: nausea and vomiting) 5 Days Qty: 10 0RF prednisone 50 mg tablet 50 mg PO DAILY Qty: 5 0RF benzonatate 100 mg capsule 100 mg PO TID PRN (Reason: cough) Qty: 12 0RF prednisone 20 mg tablet 20 mg PO DAILY 7 Days Qty: 7 0RF tobramycin 0.3 % drops 1 drp ophthalmic (eye) Q4H Qty: 5 0RF Referrals: Kamini Cardoza MD [Physician] -
[2023-06-12 17:56] VITALS: BP 131/67; PULSE 85; RESP 18; TEMP 36.7; O2SAT 95; BMI 34.1
[2023-06-12 18:43] LABS: MANUAL DIFF FLAG NO
[2023-06-12 18:48] LABS: Basophils Percent Auto 0.4 % (0-2); Eosinophils Percent Auto 0.4 % (0-4); Hematocrit 36.1 % (37.0-47.0); Hemoglobin 12.2 g/dl (12.0-16.0); Imm Gran Abs Auto 0.02 X10*3/uL (0.00-0.03); Imm Gran Pct Auto 0.3 % (0.0-0.4); Lymphocytes Absolute Auto 3.4 X10*3/uL (1.2-4.9); Lymphocytes Percent Auto 43.2 % (20-40); Mean Corpuscular HGB Conc 33.8 g/dl (31.0-35.0); Mean Corpuscular Hemoglobin 32.7 pg (27.0-33.0); Mean Corpuscular Volume 96.8 fL (80.0-98.0); Mean Platelet Volume 10.8 fL (9.4-12.3); Monocytes Absolute Auto 0.5 X10*3/uL (0.1-1.2); Monocytes Percent Auto 6.6 % (2-11); Neutrophils Absolute Auto 3.8 x10*3/uL (2.0-8.3); Neutrophils Percent Auto 49.1 % (45-73); Platelet Count 300 X10*3/uL (160-400); Red Blood Count 3.73 X10*6/uL (4.20-5.50); Red Cell Distribution Width 13.2 % (11.0-16.0); White Blood Count 7.8 X10*3/uL (4.8-10.8)
[2023-06-12 19:06] LABS: Alanine Aminotransferase 60 U/L (0-31); Albumin Level 4.4 g/dL (3.5-5.0); Alkaline Phosphatase 58 U/L (39-117); Anion Gap 13 (12-20); Aspartate Amino Transferase 47 U/L (5-31); Bilirubin Total 0.4 mg/dL (0.0-1.0); Blood Urea Nitrogen 15 mg/dL (9-16); Carbon Dioxide 28 mmol/L (22-29); Chloride 103 mmol/L (96-108); Creatinine Clr Calc Pharmacy 113.1; Estimated Glomerular Filt Rate > 60; Glucose Random 115 mg/dL (60-115); Lipase 37 U/L (8-78); Magnesium 1.8 mg/dL (1.6-2.6); Potassium 4.1 mmol/L (3.3-5.1); Sodium 140 mmol/L (135-145); Total Protein 8.1 g/dL (6.5-8.0)
[2023-06-12 19:13] LABS: HCG Quantitative < 2 mIU/mL
[2023-06-12 22:20] VITALS: BP 132/59; PULSE 91; RESP 17; TEMP 36.6; O2SAT 95
[2023-06-12 22:32] LABS: Appearance Urine Clear; Color Urine Yellow; Glucose Urine UA Negative (Negative); Leukocyte Esterase Urine Negative (Negative); Nitrite Urine Negative (Negative); PH 5.5 (5.0-9.0); Specific Gravity - Urine 1.025 (1.005-1.025); Urine Blood Negative (Negative); Urine Ketones Negative (Negative); Urine Protein Negative (Neg-Trace)
[2023-06-13 00:23] VITALS: BP 108/63; PULSE 79; RESP 17; TEMP 36.7; O2SAT 98
[2023-06-13] MEDS: Ketorolac Tromethamine 30 MG/ML VIAL IM (00:30)
--- NOTE | 2023-06-13 00:43 | PC.NURSE ---
pt medicated according to mar
--- NOTE | 2023-06-13 00:43 | PC.NURSE ---
vss. pt ambulatory at discharge. pt calm and cooperative. pt provided with discharge packet. pt verbalized understanding of discharge plan
== END 2023-06-13 00:44 | disposition home or self-care (01) ==
PROVIDERS: Physician Assistant; Emergency Provider Emergency Medicine Emergency Medical Services; PCP Internal Medicine
DX: N20.0 Calculus of kidney (principal); E11.9 Type 2 diabetes mellitus without complications; Z79.84 Long term (current) use of oral hypoglycemic drugs; Z79.899 Other long term (current) drug therapy
CPT/HCPCS: 36415; 74176; 80053; 81003; 83690; 83735; 84702; 85025; 96372; 99284; J1885

== ENCOUNTER 2023-06-16 14:31 | Emergency (ER) | payer MEDICAID, SELFPAY ==
[2023-06-16 14:34] VITALS: BP 113/55; BP 133/97; PULSE 82; PULSE 92; RESP 16; O2SAT 95; O2SAT 98; BMI 39.0
--- NOTE | 2023-06-16 14:43 | ECG_ITS ---
Test Reason : SEIZURE Blood Pressure : / mmHG Vent. Rate : 076 BPM Atrial Rate : 076 BPM P-R Int : 136 ms QRS Dur : 090 ms QT Int : 366 ms P-R-T Axes : 059 043 022 degrees QTc Int : 411 ms Normal sinus rhythm Normal ECG When compared with ECG of 14-APR-2023 19:37, No significant change was found Referred By: Zulay Lindo Electronically Signed By:EHSAN AVILES
--- NOTE | 2023-06-16 15:04 | ED.SEIZURE ---
HPI - Seizure General Chief Complaint: Seizure Stated Complaint: SEIZURE ACTIVITY PER EMS Time Seen by Provider: 06/16/23 14:42 Source: patient, family and EMS Mode of arrival: EMS Limitations: no limitations History of Present Illness HPI Narrative: 32 yo female with PMH of DM, pneumonia, seizures on depakote who took her AM dose today she had a stressful morning and was upset as her spouse did not attend a fair with her and her daughter she was upset and crying. family then noted her on the phone shaking and crying and then she said she was tired so they were worried she would have a seizure. she then began to shake while asleep but she was crying - this lasted on and off for 15 minutes but no tongue biting or incontinence. was given 2mg IV versed by EMS. the patient per daughter has hx possibly of stress induced seizures as well. patient was very sad today per daughter. MD complaint: possible seizure Onset (ago): minute(s) (20) Description of Episode: loss of consciousness Duration of episode: 15 -: minutes(s) Witnessed: Yes - by Bystander Trauma: No Seizure History: Yes Place: Home Possible Precipitating Event: stress Associated symptoms: denies other symptoms Treatments prior to arrival: benzodiazepines (2mg IV versed) Related Data Home Medications Medication Instructions Recorded Confirmed divalproex 500 mg tablet,extended 1 tab PO BID 12/29/22 12/29/22 release 24 hr Previous Rx's Medication Instructions Recorded naproxen 500 mg tablet 500 mg PO BID PRN pain #14 tabs 09/29/22 Magic Mouthwash 5 ml PO TID #240 mL 12/25/22 Diphen/Lido/Antacid 1:1:1 240 mL suspension amoxicillin 875 mg-potassium 1 tab PO BID 10 days #20 tabs 12/25/22 clavulanate 125 mg tablet prednisone 20 mg tablet 40 mg PO DAILY 5 days #10 tabs 12/25/22 divalproex 250 mg tablet,delayed 250 mg PO DAILY #30 tabs 01/04/23 release guaifenesin 100 mg/5 mL oral liquid 5 ml PO Q4H PRN cough #80 mL 01/04/23 metformin 1,000 mg tablet 1,000 mg PO BIDWM #60 tabs 01/04/23 prednisone 20 mg tablet 20 mg PO DAILY 7 days #7 tabs 02/08/23 amoxicillin 500 mg capsule 500 mg PO BID #20 caps 02/13/23 ondansetron 4 mg disintegrating 4 mg PO TID PRN nausea and 04/03/23 tablet vomiting 5 days #10 tabs benzonatate 100 mg capsule 100 mg PO TID PRN cough #12 caps 04/14/23 prednisone 50 mg tablet 50 mg PO DAILY #5 tabs 04/14/23 tobramycin 0.3 % eye drops 1 drp ophthalmic (eye) Q4H #5 mL 04/22/23 naproxen 500 mg tablet 500 mg PO BID #14 tabs 06/13/23 prednisone 20 mg tablet 20 mg PO DAILY #3 tabs 06/13/23 tamsulosin 0.4 mg capsule 0.4 mg PO DAILY #7 caps 06/13/23 Allergies Allergy/AdvReac Type Severity Reaction Status Date / Time Iodinated Contrast Media Allergy Intermediate Facial Verified 06/16/23 14:39 Swelling clindamycin [CLINDAMYCIN] Allergy Unknown ANAPHYLAXIS Verified 06/16/23 14:39 Review of Systems Review of Systems: ROS unable to be obtained due to altered mental status [facility] Past Medical History Medical History Diabetes mellitus Epilepsy Surgical History Hx of cholecystectomy Social History Social History Household Members: Spouse and Children Housing: Apartment Do you presently have visiting nurse or other home services: No Alcohol intake: never Patient Tobacco Use Status: Never used Tobacco Smoked in Last 30 Days: No Use of substances other than those prescribed or required for medical reasons: No Advance Directives: No Advance Directives Information Provided: No service: No Current occupational status: employed Physical Exam Vital Signs: Vital Signs: Last Vital Signs Pulse 74 06/16/23 15:49 Resp 20 06/16/23 15:49 BP 110/61 06/16/23 15:49 Pulse Ox 96 06/16/23 15:49 O2 Del Method Room Air 06/16/23 15:49 BMI result Body Mass Index 39.0 Appearance: somnolent but responds to stimuli under influence of medications, moans responds to daughter. No acute distress. Eyes: Pupils equal, round and reactive to light. ENT: Pharynx normal. no tongue biting Neck: Normal inspection. Neck supple. CVS: Normal heart rate and rhythm. Pulses normal. Respiratory: No respiratory distress. Breath sounds normal. Abdomen: Soft and nontender. : no incontinence Skin: Skin warm and dry. Normal skin color. Normal skin turgor. Extremities: No lower extremity edema. No calf ttp Neuro: Oriented X 3. No motor deficit. No sensory deficit. Course Course Course Narrative: called to bedside by spouse whom she had issue with that precipitated today's events - eyes were rolling back and patient was moaning (actually stating I have to pee pee he states she was having another seizure - the patient was given a painful stimuli and she woke right up no GTC movements this was not a seizure. seems related to spouse coming to ED. Reevaluation(s) Reevaluation #1: still sleepy will sign out pending improvement from versed Medical Decision Making Medical Decision Making MDM Narrative: 32 yo female with PMH of DM, pneumonia, seizures on depakote who took her AM dose today she had a stressful morning and was upset as her spouse did not attend a fair with her and her daughter - seizure event was unusual and she has no tongue biting, incontinence and seems sad and withdrawn I am not sure this was epileptic vs non-epileptic seizures. will monitor obtain EKG and labs. no trauma or headaches preceding to suggest ICH. Differential Diagnosis Differential Diagnoses: The differential diagnosis associated with the presentation includes anxiety, non epileptic seizure, seizure Admission/Observation Consideration of admission/observation: Escalation of care including admission/observation considered will need some observation until more cleared from versed pre EMS Lab Data [facility] Lab Attestation statement: I reviewed the patient's lab results. 06/16/23 15:35 06/16/23 15:35 Labs: Lab Results 06/16/23 06/16/23 06/16/23 Range/Units 15:35 15:35 15:35 WBC 8.2 (4.8-10.8) X10*3/uL RBC 3.69 L (4.20-5.50) X10*6/uL Hgb 12.1 (12.0-16.0) g/dl Hct 36.1 L (37.0-47.0) % MCV 97.8 (80.0-98.0) fL MCH 32.8 (27.0-33.0) pg MCHC 33.5 (31.0-35.0) g/dl RDW 13.2 (11.0-16.0) % Plt Count 251 (160-400) X10*3/uL MPV 10.6 (9.4-12.3) fL Immature Gran % (Auto) 0.4 (0.0-0.4) % Neut % (Auto) 61.6 (45-73) % Lymph % (Auto) 31.4 (20-40) % Dixie % (Auto) 6.0 (2-11) % Eos % (Auto) 0.2 (0-4) % Baso % (Auto) 0.4 (0-2) % Lymph # (Auto) 2.6 (1.2-4.9) X10*3/uL Dixie # (Auto) 0.5 (0.1-1.2) X10*3/uL Eos # (Auto) 0.0 (0.0-0.4) X10*3/uL Baso # (Auto) 0.0 (0.0-0.2) X10*3/uL Abs Immat Gran (auto) 0.03 (0.00-0.03) X10*3/uL Absolute Neuts (auto) 5.1 (2.0-8.3) x10*3/uL Absolute Nucleated RBC 0.000 (0.0-0.012) X10*3/uL Nucleated RBC % (auto) 0.0 (0.0-0.2) /100WBC Sodium 140 (135-145) mmol/L Potassium 4.3 (3.3-5.1) mmol/L Chloride 104 (96-108) mmol/L Carbon Dioxide 25 (22-29) mmol/L Anion Gap 15 (12-20) BUN 10 (9-16) mg/dL Creatinine 0.57 (0.5-1.4) mg/dL Estim Creat Clear Calc 149.3 Estimated GFR > 60 Random Glucose 150 H (60-115) mg/dL Calcium 9.7 (8.4-10.2) mg/dL Magnesium 1.8 (1.6-2.6) mg/dL Total Bilirubin 0.3 (0.0-1.0) mg/dL Direct Bilirubin 0.1 (0.0-0.5) mg/dL AST 52 H (5-31) U/L ALT 68 H (0-31) U/L Alkaline Phosphatase 55 (39-117) U/L Total Protein 7.5 (6.5-8.0) g/dL Albumin 4.2 (3.5-5.0) g/dL Beta HCG, Quant < 2 mIU/mL Valproic Acid 77.0 (50.0-100.0) mcg/mL Independent Interpretation I performed an independent interpretation of an: EKG Interpretation: Rate: 76 Rhythm: NSR [place]: normal Normal P waves. Normal GARY. Normal QRS complex. ST T wave : normal no JERMAINE qTC: normal prior studies: no acute ischemia The study has been interpreted contemporaneously by me. . Independent Historian Clinical information obtained from an independent historian. History obtained from or confirmed by: Spouse and EMS External Record Review External record reviewed: Inpatient record Social Determinants Patient?s care significantly limited by Social Determinants of Health including: Problems related to primary support group Discharge Plan Discharge Clinical Impression: Convulsions Qualifiers: Convulsion type: unspecified Qualified Code(s): R56.9 - Unspecified convulsions Patient Disposition: Still a Patient Instructions: Nonepileptic Seizures (ED), Recurrent Seizures in Adults (ED) Additional Instructions: your labs were normal you were given a medication that will make you sleepy please stay with a responsible adult. avoid stress. talk to your neurologist this week. take your medications as prescribed. return for worsening symptoms, confusion, headaches, fevers or any other concerns. roberto laboratorios fueron normales le dieron un medicamento que le smiley? alfonzo?o por favor qu?dese con un adulto responsable. evitar el estr?s. hable con cook neur?logo esta semana. tome roberto medicamentos seg?n lo prescrito. regrese por empeoramiento de los s?ntomas, confusi?n, harrison de giovanni, fiebre o cualquier otra inquietud. Prescriptions: No Action naproxen 500 mg tablet 500 mg PO BID PRN (Reason: pain) Qty: 14 0RF prednisone 20 mg tablet 40 mg PO DAILY 5 Days Qty: 10 0RF amoxicillin-pot clavulanate 875-125 mg tablet 1 tab PO BID 10 Days Qty: 20 0RF Magic Mouthwash Diphen/Lido/Antacid 1:1:1 240 mL suspension 5 ml PO TID Qty: 240 0RF Rx Instructions: Lidocaine Viscous 2 % 80mL; diphenhydramine 12.5 mg/5 mL 80mL; aluminum-mag hydrox-simeth [id number]/5mL 80mL Swish and spit, do not swallow divalproex 500 mg tablet extended release 24 hr 1 tab PO BID metformin 1,000 mg Tablet 1,000 mg PO BIDWM Qty: 60 0RF guaifenesin 100 mg/5 mL Liquid 5 ml PO Q4H PRN (Reason: cough) Qty: 80 0RF divalproex 250 mg tablet,delayed release (DR/EC) 250 mg PO DAILY Qty: 30 0RF amoxicillin 500 mg capsule 500 mg PO BID Qty: 20 0RF ondansetron 4 mg tablet,disintegrating 4 mg PO TID PRN (Reason: nausea and vomiting) 5 Days Qty: 10 0RF prednisone 50 mg tablet 50 mg PO DAILY Qty: 5 0RF benzonatate 100 mg capsule 100 mg PO TID PRN (Reason: cough) Qty: 12 0RF naproxen 500 mg tablet 500 mg PO BID Qty: 14 0RF prednisone 20 mg tablet 20 mg PO DAILY Qty: 3 0RF tamsulosin 0.4 mg capsule 0.4 mg PO DAILY Qty: 7 0RF prednisone 20 mg tablet 20 mg PO DAILY 7 Days Qty: 7 0RF tobramycin 0.3 % drops 1 drp ophthalmic (eye) Q4H Qty: 5 0RF
[2023-06-16 15:39] LABS: MANUAL DIFF FLAG NO
[2023-06-16 15:40] LABS: Basophils Percent Auto 0.4 % (0-2); Eosinophils Percent Auto 0.2 % (0-4); Hematocrit 36.1 % (37.0-47.0); Hemoglobin 12.1 g/dl (12.0-16.0); Imm Gran Abs Auto 0.03 X10*3/uL (0.00-0.03); Imm Gran Pct Auto 0.4 % (0.0-0.4); Lymphocytes Absolute Auto 2.6 X10*3/uL (1.2-4.9); Lymphocytes Percent Auto 31.4 % (20-40); Mean Corpuscular HGB Conc 33.5 g/dl (31.0-35.0); Mean Corpuscular Hemoglobin 32.8 pg (27.0-33.0); Mean Corpuscular Volume 97.8 fL (80.0-98.0); Mean Platelet Volume 10.6 fL (9.4-12.3); Monocytes Absolute Auto 0.5 X10*3/uL (0.1-1.2); Neutrophils Absolute Auto 5.1 x10*3/uL (2.0-8.3); Neutrophils Percent Auto 61.6 % (45-73); Platelet Count 251 X10*3/uL (160-400); Red Blood Count 3.69 X10*6/uL (4.20-5.50); Red Cell Distribution Width 13.2 % (11.0-16.0); White Blood Count 8.2 X10*3/uL (4.8-10.8)
[2023-06-16 15:49] VITALS: BP 110/61; PULSE 74; RESP 20; O2SAT 96
--- NOTE | 2023-06-16 15:51 | PC.NURSE ---
pt sleeping, no seizure activity noted, vitals stable, daughter at bedside, will ctm
[2023-06-16 16:01] LABS: Alanine Aminotransferase 68 U/L (0-31); Albumin Level 4.2 g/dL (3.5-5.0); Alkaline Phosphatase 55 U/L (39-117); Anion Gap 15 (12-20); Aspartate Amino Transferase 52 U/L (5-31); Bilirubin Direct 0.1 mg/dL (0.0-0.5); Bilirubin Total 0.3 mg/dL (0.0-1.0); Blood Urea Nitrogen 10 mg/dL (9-16); Calcium 9.7 mg/dL (8.4-10.2); Carbon Dioxide 25 mmol/L (22-29); Chloride 104 mmol/L (96-108); Creatinine Clr Calc Pharmacy 149.3; Estimated Glomerular Filt Rate > 60; Glucose Random 150 mg/dL (60-115); HCG Quantitative < 2 mIU/mL; Magnesium 1.8 mg/dL (1.6-2.6); Potassium 4.3 mmol/L (3.3-5.1); Sodium 140 mmol/L (135-145); Total Protein 7.5 g/dL (6.5-8.0)
--- NOTE | 2023-06-16 16:10 | MHC.EDTECH ---
THIS PCT ASSUMED CARE OF PT AT 1500 ,PATIENT SLEEPING ,PT DAUGHTER AT BED SIDE .
--- NOTE | 2023-06-16 17:29 | PC.NURSE ---
pt awaking, still tired, but able to talk and answer questions. family at bedside, vss, will ctm
--- NOTE | 2023-06-16 17:49 | PC.NURSE ---
pt sleeping, no distress noted, seizure pads and precautions in place. will ctm
[2023-06-16 19:00] VITALS: BP 108/62; PULSE 78; RESP 16; TEMP 36.7; O2SAT 98
--- NOTE | 2023-06-16 19:31 | MHC.EDTECH ---
PATIENT WAS ASSISTED WITH AMBULATION TO BATHROOM AND BACK TO BED ,PT IS ALERT AND ORIENTED AND SAID SHE FEEL MUCH BETTER ,REBECA DODD AND PROVIDER DR HERNANDEZ IS AWARE .
== END 2023-06-16 19:50 | disposition home or self-care (01) ==
PROVIDERS: Emergency Provider Emergency Medicine
DX: R56.9 Unspecified convulsions (principal); E11.9 Type 2 diabetes mellitus without complications; Z79.899 Other long term (current) drug therapy
CPT/HCPCS: 36415; 80048; 80076; 80164; 83735; 84702; 85025; 93005; 99283; 99284

== ENCOUNTER 2023-07-05 19:05 | Emergency (ER) | payer MEDICAID, SELFPAY ==
[2023-07-05 19:20] VITALS: BP 144/72; PULSE 85; RESP 18; TEMP 37.3; O2SAT 97; BMI 33.6
--- NOTE | 2023-07-05 19:20 | ED.SKABFB ---
HPI - Skin/Abscess/Foreign Bdy General Chief complaint: General Medical Stated complaint: red spots on left leg itchy Time Seen by Provider: 07/06/23 00:05 Source: patient Mode of arrival: ambulatory History of Present Illness HPI narrative: 32-year-old female, has a history of epilepsy and diabetes presents with onset of 3 non blanching areas to the left lower extremity that she [place] thought [place] She denies any fevers, chills, any traumatic injuries and denies any other bleeding disorders that she is aware of. Related Data Home Medications Medication Instructions Recorded Confirmed divalproex 500 mg tablet,extended 1 tab PO BID 12/29/22 12/29/22 release 24 hr Previous Rx's Medication Instructions Recorded naproxen 500 mg tablet 500 mg PO BID PRN pain #14 tabs 09/29/22 Magic Mouthwash 5 ml PO TID #240 mL 12/25/22 Diphen/Lido/Antacid 1:1:1 240 mL suspension amoxicillin 875 mg-potassium 1 tab PO BID 10 days #20 tabs 12/25/22 clavulanate 125 mg tablet prednisone 20 mg tablet 40 mg (2 x 20 mg) PO DAILY 5 days 12/25/22 #10 tabs divalproex 250 mg tablet,delayed 250 mg PO DAILY #30 tabs 01/04/23 release guaifenesin 100 mg/5 mL oral liquid 5 ml PO Q4H PRN cough #80 mL 01/04/23 metformin 1,000 mg tablet 1,000 mg PO BIDWM #60 tabs 01/04/23 prednisone 20 mg tablet 20 mg PO DAILY 7 days #7 tabs 02/08/23 amoxicillin 500 mg capsule 500 mg PO BID #20 caps 02/13/23 ondansetron 4 mg disintegrating 4 mg PO TID PRN nausea and 04/03/23 tablet vomiting 5 days #10 tabs benzonatate 100 mg capsule 100 mg PO TID PRN cough #12 caps 04/14/23 prednisone 50 mg tablet 50 mg PO DAILY #5 tabs 04/14/23 tobramycin 0.3 % eye drops 1 drp ophthalmic (eye) Q4H #5 mL 04/22/23 naproxen 500 mg tablet 500 mg PO BID #14 tabs 06/13/23 prednisone 20 mg tablet 20 mg PO DAILY #3 tabs 06/13/23 tamsulosin 0.4 mg capsule 0.4 mg PO DAILY #7 caps 06/13/23 Allergies Allergy/AdvReac Type Severity Reaction Status Date / Time Iodinated Contrast Media Allergy Intermediate Facial Verified 06/16/23 14:39 Swelling clindamycin [CLINDAMYCIN] Allergy Unknown ANAPHYLAXIS Verified 06/16/23 14:39 Review of Systems Review of Systems: Pertinent positives and negatives as stated in HPI. PMFSH Past Medical History Source: nursing notes reviewed Medical History Diabetes mellitus Epilepsy Surgical History Hx of cholecystectomy Social History Social History Household Members: Spouse and Children Housing: Apartment Do you presently have visiting nurse or other home services: No Alcohol intake: never Patient Tobacco Use Status: Never used Tobacco Advance Directives: No Advance Directives Information Provided: No service: No Current occupational status: employed Physical Exam Vital Signs: Vital Signs: Last Vital Signs Temp 96.6 F L 07/06/23 00:54 Pulse 82 07/06/23 00:54 Resp 18 07/05/23 19:20 BP 136/53 L 07/06/23 00:54 Pulse Ox 100 07/06/23 00:54 O2 Del Method Room Air 07/06/23 00:54 BMI result Body Mass Index 33.6 VITAL SIGNS: Reviewed. GENERAL: Well developed, well nourished, in no acute distress. HEAD: Normocephalic/atraumatic EYES: PERRLA, EOMI LUNGS: Normal breath sounds. No adventitious sounds or accessory muscle use. SpO2<100> CARDIOVASCULAR: Regular rate and rhythm without noted murmurs ABDOMEN: Soft, non-tender, non-distended with bowel sounds. MUSCULOSKELETAL: No tenderness, deformities, or effusions noted on gross inspection. EXTREMITIES: No cyanosis, clubbing or edema. LLE: There are 3 raised purplish, approximate 1.5 cm areas to the anterior aspect they are nonblanching, tender to palpation and do not appear to be insect bites SKIN: Inspection of the skin see above NEUROLOGIC: Alert and oriented x 4. Strength and sensation to light touch were grossly intact x 4. Course Course Course Narrative: This is a rapid medical exam. Deferred additional HPI, ROS, PE to primary provider, 32 yo female with PMH of DM, pneumonia, seizures on depakote here with 3 itching lesions to left lower extremity after going to [employer]. No known injury or trauma. To the LLE there are three papular lesions noted Will check labs VSS Medical Decision Making Medical Decision Making MDM Narrative: This is a 32-year-old female with history and clinical presentation that appears to be consistent with a vasculitis of some kind, patient is otherwise healthy without fevers or chills she is a diabetic but there do not appear to be any inciting events. The leg otherwise appears well and which do not demonstrate any anemia or thrombocytopenia. I highly encouraged patient to follow-up with primary care provider for further investigations. Differential Diagnosis Differential Diagnoses: The differential diagnosis associated with the presentation includes Please see the discussion above Lab Data 07/05/23 20:56 Labs: Lab Results 07/05/23 Range/Units 20:56 WBC 8.5 (4.8-10.8) X10*3/uL RBC 3.74 L (4.20-5.50) X10*6/uL Hgb 12.6 (12.0-16.0) g/dl Hct 36.8 L (37.0-47.0) % MCV 98.4 H (80.0-98.0) fL MCH 33.7 H (27.0-33.0) pg MCHC 34.2 (31.0-35.0) g/dl RDW 13.1 (11.0-16.0) % Plt Count 255 (160-400) X10*3/uL MPV 11.5 (9.4-12.3) fL Immature Gran % (Auto) 0.2 (0.0-0.4) % Neut % (Auto) 52.2 (45-73) % Lymph % (Auto) 39.7 (20-40) % [place] % (Auto) 6.9 (2-11) % Eos % (Auto) 0.4 (0-4) % Baso % (Auto) 0.6 (0-2) % Lymph # (Auto) 3.4 (1.2-4.9) X10*3/uL [place] # (Auto) 0.6 (0.1-1.2) X10*3/uL Eos # (Auto) 0.0 (0.0-0.4) X10*3/uL Baso # (Auto) 0.1 (0.0-0.2) X10*3/uL Abs Immat Gran (auto) 0.02 (0.00-0.03) X10*3/uL Absolute Neuts (auto) 4.5 (2.0-8.3) x10*3/uL Absolute Nucleated RBC 0.000 (0.0-0.012) X10*3/uL Nucleated RBC % (auto) 0.0 (0.0-0.2) /100WBC External Record Review External record reviewed: Outpatient record, Prior outpatient labs and Prior outpatient radiology Discharge Plan Discharge Clinical Impression: Vasculitis limited to skin Patient Disposition: Home, Self-Care Instructions: Acute Rash (ED) Additional Instructions: 1. Please follow-up with your primary care doctor by calling the office in the morning and setting up an appointment for re-evaluation further investigation regarding this rash. Prescriptions: No Action naproxen 500 mg tablet 500 mg PO BID PRN (Reason: pain) Qty: 14 0RF prednisone 20 mg tablet 40 mg PO DAILY 5 Days Qty: 10 0RF amoxicillin-pot clavulanate 875-125 mg tablet 1 tab PO BID 10 Days Qty: 20 0RF Magic Mouthwash Diphen/Lido/Antacid 1:1:1 240 mL suspension 5 ml PO TID Qty: 240 0RF Rx Instructions: Lidocaine Viscous 2 % 80mL; diphenhydramine 12.5 mg/5 mL 80mL; aluminum-mag hydrox-simeth [id number]/5mL 80mL Swish and spit, do not swallow divalproex 500 mg tablet extended release 24 hr 1 tab PO BID metformin 1,000 mg Tablet 1,000 mg PO BIDWM Qty: 60 0RF guaifenesin 100 mg/5 mL Liquid 5 ml PO Q4H PRN (Reason: cough) Qty: 80 0RF divalproex 250 mg tablet,delayed release (DR/EC) 250 mg PO DAILY Qty: 30 0RF amoxicillin 500 mg capsule 500 mg PO BID Qty: 20 0RF ondansetron 4 mg tablet,disintegrating 4 mg PO TID PRN (Reason: nausea and vomiting) 5 Days Qty: 10 0RF prednisone 50 mg tablet 50 mg PO DAILY Qty: 5 0RF benzonatate 100 mg capsule 100 mg PO TID PRN (Reason: cough) Qty: 12 0RF naproxen 500 mg tablet 500 mg PO BID Qty: 14 0RF prednisone 20 mg tablet 20 mg PO DAILY Qty: 3 0RF tamsulosin 0.4 mg capsule 0.4 mg PO DAILY Qty: 7 0RF prednisone 20 mg tablet 20 mg PO DAILY 7 Days Qty: 7 0RF tobramycin 0.3 % drops 1 drp ophthalmic (eye) Q4H Qty: 5 0RF Referrals: [facility] [Primary Care Provider] -
[2023-07-05 21:23] LABS: MANUAL DIFF FLAG NO
[2023-07-05 21:27] LABS: Basophils Absolute Auto 0.1 X10*3/uL (0.0-0.2); Basophils Percent Auto 0.6 % (0-2); Eosinophils Percent Auto 0.4 % (0-4); Hematocrit 36.8 % (37.0-47.0); Hemoglobin 12.6 g/dl (12.0-16.0); Imm Gran Abs Auto 0.02 X10*3/uL (0.00-0.03); Imm Gran Pct Auto 0.2 % (0.0-0.4); Lymphocytes Absolute Auto 3.4 X10*3/uL (1.2-4.9); Lymphocytes Percent Auto 39.7 % (20-40); Mean Corpuscular HGB Conc 34.2 g/dl (31.0-35.0); Mean Corpuscular Hemoglobin 33.7 pg (27.0-33.0); Mean Corpuscular Volume 98.4 fL (80.0-98.0); Mean Platelet Volume 11.5 fL (9.4-12.3); Monocytes Absolute Auto 0.6 X10*3/uL (0.1-1.2); Monocytes Percent Auto 6.9 % (2-11); Neutrophils Absolute Auto 4.5 x10*3/uL (2.0-8.3); Neutrophils Percent Auto 52.2 % (45-73); Platelet Count 255 X10*3/uL (160-400); Red Blood Count 3.74 X10*6/uL (4.20-5.50); Red Cell Distribution Width 13.1 % (11.0-16.0); White Blood Count 8.5 X10*3/uL (4.8-10.8)
[2023-07-06 00:54] VITALS: BP 136/53; PULSE 82; TEMP 35.9; O2SAT 100
== END 2023-07-06 02:26 | disposition home or self-care (01) ==
PROVIDERS: Nurse Practitioner Family; Emergency Provider Student in an Organized Health Care Education/Training Program
DX: L95.9 Vasculitis limited to the skin, unspecified (principal); Z79.899 Other long term (current) drug therapy
CPT/HCPCS: 36415; 85025; 99283

== ENCOUNTER 2023-07-07 08:11 | Emergency (ER) | payer MEDICAID, SELFPAY ==
--- NOTE | ~2023-07-07 | CT_ITS ---
EXAMINATION: CT HEAD WITHOUT CONTRAST CLINICAL INFORMATION: Status post seizure. Possible head injury. COMPARISON: None available. TECHNIQUE: Contiguous axial imaging was performed from the skull base to vertex without intravenous administration of contrast. This CT examination was performed using dose optimization techniques as appropriate, variously including the following: *Automated exposure control *Adjustment of mA and/or kV according to patient size (this includes techniques or standardized protocols for targeted exams where dose is matched to indication/reason for exam; i.e. extremities or head) *Use of iterative reconstruction technique DLP: 610 mGy-cm FINDINGS: There is no acute intra-axial, extra-axial bleed, masses or midline shift. There is no acute infarction evolution. There is no edema. The martinez to white matter differentiation is maintained normal. The lateral ventricles are symmetrical in size and configuration without enlargement. Bone windows reveal no calvarial abnormality. There is no scalp soft tissue abnormality. Bilateral paranasal sinuses and mastoid air cells are clear. CT/CT head/brain wo IV con IMPRESSION: No acute intracranial process seen.
[2023-07-07 08:22] VITALS: BP 114/64; BP 123/63; PULSE 85; PULSE 91; RESP 18; TEMP 37.4; O2SAT 100; O2SAT 98; BMI 35.9
[2023-07-07 08:30] VITALS: PULSE 86
--- NOTE | 2023-07-07 08:31 | ED.SEIZURE ---
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 Patient declined any fever or chills. Patient has a typical post ictal symptoms of photophobia, shaking and feeling cold. Patient is able to answer all questions. BS by EMS before arrival was 104. Seizure History: Yes Related Data Home Medications Medication Instructions Recorded Confirmed divalproex 500 mg tablet,extended 1 tab PO BID 12/29/22 12/29/22 release 24 hr Previous Rx's Medication Instructions Recorded naproxen 500 mg tablet 500 mg PO BID PRN pain #14 tabs 09/29/22 Magic Mouthwash 5 ml PO TID #240 mL 12/25/22 Diphen/Lido/Antacid 1:1:1 240 mL suspension amoxicillin 875 mg-potassium 1 tab PO BID 10 days #20 tabs 12/25/22 clavulanate 125 mg tablet prednisone 20 mg tablet 40 mg (2 x 20 mg) PO DAILY 5 days 12/25/22 #10 tabs divalproex 250 mg tablet,delayed 250 mg PO DAILY #30 tabs 01/04/23 release guaifenesin 100 mg/5 mL oral liquid 5 ml PO Q4H PRN cough #80 mL 01/04/23 metformin 1,000 mg tablet 1,000 mg PO BIDWM #60 tabs 01/04/23 prednisone 20 mg tablet 20 mg PO DAILY 7 days #7 tabs 02/08/23 amoxicillin 500 mg capsule 500 mg PO BID #20 caps 02/13/23 ondansetron 4 mg disintegrating 4 mg PO TID PRN nausea and 04/03/23 tablet vomiting 5 days #10 tabs benzonatate 100 mg capsule 100 mg PO TID PRN cough #12 caps 04/14/23 prednisone 50 mg tablet 50 mg PO DAILY #5 tabs 04/14/23 tobramycin 0.3 % eye drops 1 drp ophthalmic (eye) Q4H #5 mL 04/22/23 naproxen 500 mg tablet 500 mg PO BID #14 tabs 06/13/23 prednisone 20 mg tablet 20 mg PO DAILY #3 tabs 06/13/23 tamsulosin 0.4 mg capsule 0.4 mg PO DAILY #7 caps 06/13/23 nitrofurantoin 100 mg PO BID #14 caps 07/07/23 monohydrate/macrocrystals 100 mg capsule (Macrobid) Allergies Allergy/AdvReac Type Severity Reaction Status Date / Time Iodinated Contrast Media Allergy Intermediate Facial Verified 07/07/23 08:30 Swelling clindamycin [CLINDAMYCIN] Allergy Unknown ANAPHYLAXIS Verified 07/07/23 08:30 Review of Systems Review of Systems: All other systems are reviewed and are negative Constitutional: Reports as per HPI and Reports no additional constitutional complaints Eyes: Reports as per HPI and Reports no additional eye complaints Reports system reviewed and no additional complaints, except as documented Cardiovascular: Reports as per HPI and Reports no additional cardiovascular complaints Respiratory: Reports as per HPI and Reports no additional respiratory complaints Gastrointestinal: Reports as per HPI and Reports no additional gastrointestinal complaints Genitourinary: Reports no additional female genitourinary complaints Musculoskeletal: Reports no additional musculoskeletal complaints Skin/Breast: Reports system reviewed and no additional complaints, except as docu Psychiatric: Reports no additional psychiatric complaints Endocrine: Reports no additional endocrine complaints Hematologic/Lymphatic: Reports no additional hematologic/lymphatic complaints Allergic/Immunologic: Reports no additional allergic/immunologic complaints Reports system reviewed and no additional complaints, except as documented and Reports Abnormal speech present [facility] Past Medical History Medical History Diabetes mellitus Epilepsy Surgical History Hx of cholecystectomy Social History Social History Household Members: Spouse and Children Housing: Apartment Do you presently have visiting nurse or other home services: No Alcohol intake: never Patient Tobacco Use Status: Never used Tobacco Smoked in Last 30 Days: No Use of substances other than those prescribed or required for medical reasons: No Advance Directives: No Advance Directives Information Provided: Yes service: No Current occupational status: employed Physical Exam Vital Signs: Vital Signs: Last Vital Signs Temp 99.3 F 07/07/23 08:22 Pulse 86 07/07/23 08:30 Resp 18 07/07/23 08:22 BP 123/63 07/07/23 08:22 Pulse Ox 100 07/07/23 08:22 O2 Del Method Room Air 07/07/23 08:22 BMI result Body Mass Index 35.9 Vital signs have been reviewed and appear to be correct. Blood pressure elevated. Heart rate normal. Respiratory rate normal. Temperature normal. Oxygen saturation normal. Appearance: Alert. Oriented X3. No acute distress. Head: Normal external exam. Normocephalic. Atraumatic. No Ordoñez signs noted. No raccoon eyes noted Eyes: PERRLA. EOMI. Conjunctiva and sclera normal. Eyelids normal. ENT: TM's Normal. Pharynx normal. Uvula midline. Moist mucous membranes. No trismus noted. No drooling noted. No muffled voice noted. Neck: Normal inspection. Neck supple. FROM. No adenopathy. Thyroid Normal. No meningeal signs. No neck mass noted. CVS: Normal heart rate and rhythm. Heart sound normal. No murmurs noted. Pulses normal throughout. Respiratory: No respiratory distress. Painless inspiration. Breath sounds normal. No wheezes/rales/rhonchi noted. Chest nontender. No accessory muscle usage noted or decreased air movement noted. Abdomen: Soft and nontender. Bowel sounds normal in all 4 quadrants. No distention noted. No organomegaly noted. No visible injury noted. Back: No CVA tenderness. Full range of motion noted. Skin: Skin warm and dry. Normal skin color. Normal skin turgor. No rashes/lesions/lacerations noted. Extremities: No lower extremity edema. Extremities exhibit normal range of motion. Extremities nontender. Neuro: Oriented X 3. Cranial nerve exam: II-XII are grossly intact No motor deficit. No sensory deficit. Reflexes normal. Course Course Course Narrative: Patient now is awake, alert, oriented x3, follow commands briskly, labs is revealing mild UTI, head CT is unremarkable Keppra level is therapeutic. Patient is tolerating p.o. intake ambulating with steady gait in the emergency department await for family member to pick her up to home. Medications Administered Discontinued Medications Generic Name Dose Route Start Last Admin Trade Name Freq PRN Reason Stop Dose Admin Sodium Chloride 1,000 mls @ 999 mls/hr 07/07/23 08:38 07/07/23 08:43 Ns IV 07/07/23 09:38 999 mls/hr .Q1H1M ONE Administration Medical Decision Making Differential Diagnosis Differential Diagnoses: The differential diagnosis associated with the presentation includes (Seizure, intracranial bleed, subtherapeutic low of Keppra, electrolyte abnormality, severe anemia, UTI, .) Admission/Observation Consideration of admission/observation: Escalation of care including admission/observation considered Lab Data MDM Lab Attestation statement: I reviewed the patient's lab results. 07/07/23 08:58 07/07/23 08:58 Labs: Lab Results 07/07/23 07/07/23 07/07/23 Range/Units 08:34 08:58 09:30 WBC 7.5 (4.8-10.8) X10*3/uL RBC 3.36 L (4.20-5.50) X10*6/uL Hgb 11.3 L (12.0-16.0) g/dl Hct 33.4 L (37.0-47.0) % MCV 99.4 H (80.0-98.0) fL MCH 33.6 H (27.0-33.0) pg MCHC 33.8 (31.0-35.0) g/dl RDW 13.0 (11.0-16.0) % Plt Count 242 (160-400) X10*3/uL MPV 11.0 (9.4-12.3) fL Immature Gran % (Auto) 0.1 (0.0-0.4) % Neut % (Auto) 41.4 L (45-73) % Lymph % (Auto) 48.4 H (20-40) % [place] % (Auto) 9.2 (2-11) % Eos % (Auto) 0.4 (0-4) % Baso % (Auto) 0.5 (0-2) % Lymph # (Auto) 3.6 (1.2-4.9) X10*3/uL [place] # (Auto) 0.7 (0.1-1.2) X10*3/uL Eos # (Auto) 0.0 (0.0-0.4) X10*3/uL Baso # (Auto) 0.0 (0.0-0.2) X10*3/uL Abs Immat Gran (auto) 0.01 (0.00-0.03) X10*3/uL Absolute Neuts (auto) 3.1 (2.0-8.3) x10*3/uL Absolute Nucleated RBC 0.000 (0.0-0.012) X10*3/uL Nucleated RBC % (auto) 0.0 (0.0-0.2) /100WBC Sodium 138 (135-145) mmol/L Potassium 4.0 (3.3-5.1) mmol/L Chloride 109 H (96-108) mmol/L Carbon Dioxide 23 (22-29) mmol/L Anion Gap 10 L (12-20) BUN 9 (9-16) mg/dL Creatinine 0.61 (0.5-1.4) mg/dL Estim Creat Clear Calc 127.8 Estimated GFR > 60 POC Glucose 108 (60-115) mg/dL Random Glucose 101 (60-115) mg/dL Calcium 9.0 D (8.4-10.2) mg/dL Total Bilirubin 0.4 (0.0-1.0) mg/dL Direct Bilirubin 0.2 (0.0-0.5) mg/dL AST 39 H (5-31) U/L ALT 45 H (0-31) U/L Alkaline Phosphatase 55 (39-117) U/L Total Protein 6.9 (6.5-8.0) g/dL Albumin 3.8 (3.5-5.0) g/dL Lipase 31 (8-78) U/L Urine Color Yellow Urine Appearance Cloudy Urine pH 5.5 (5.0-9.0) Ur Specific [place] 1.025 (1.005-1.025) Urine Protein Negative (Neg-Trace) mg/dL Urine Glucose (UA) Negative (Negative) mg/dL Urine Ketones Negative (Negative) mg/dL Urine Blood Negative (Negative) Urine Nitrite Negative (Negative) Ur Leukocyte Esterase Moderate (2+) H (Negative) Urine RBC 0-2 (0-2) /HPF Urine WBC 21-50 H (0-5) /HPF Ur Squamous Epith Cells >20 (0-2) /HPF Urine Bacteria 4+ (None Seen) Hyaline Casts 3-5 (0-2) /LPF Urine Test NEGATIVE (NEGATIVE) Urine Opiates Screen Not Detected (Not Detect) Urine Fentanyl Screen Not Detected (Not Detect) Ur Barbiturates Screen Not Detected (Not Detect) Valproic Acid 93.3 (50.0-100.0) mcg/mL Ur Phencyclidine Scrn Not Detected (Not Detect) Ur Amphetamines Screen Not Detected (Not Detect) U Benzodiazepines Scrn Not Detected (Not Detect) Urine Cocaine Screen Not Detected (Not Detect) U Marijuana (THC) Screen Not Detected (Not Detect) Independent Interpretation I performed an independent interpretation of an: CT Scan (Head: No acute intracranial pathology.) Radiology Impression Discussion of test interpretation with radiology: I have reviewed the radiologist's reading. Chronic Conditions Patient?s care impacted by: Other (Seizure) Discharge Plan Discharge Clinical Impression: Seizure, UTI (urinary tract infection) Patient Disposition: Home, Self-Care Instructions: Urinary Tract Infection in Women (DC), Epilepsy (ED) Prescriptions: New nitrofurantoin monohyd/m-cryst [Macrobid] 100 mg capsule 100 mg PO BID Qty: 14 0RF Rx Instructions: must administer with a meal/food No Action naproxen 500 mg tablet 500 mg PO BID PRN (Reason: pain) Qty: 14 0RF prednisone 20 mg tablet 40 mg PO DAILY 5 Days Qty: 10 0RF amoxicillin-pot clavulanate 875-125 mg tablet 1 tab PO BID 10 Days Qty: 20 0RF Magic Mouthwash Diphen/Lido/Antacid 1:1:1 240 mL suspension 5 ml PO TID Qty: 240 0RF Rx Instructions: Lidocaine Viscous 2 % 80mL; diphenhydramine 12.5 mg/5 mL 80mL; aluminum-mag hydrox-simeth [id number]/5mL 80mL Swish and spit, do not swallow divalproex 500 mg tablet extended release 24 hr 1 tab PO BID metformin 1,000 mg Tablet 1,000 mg PO BIDWM Qty: 60 0RF guaifenesin 100 mg/5 mL Liquid 5 ml PO Q4H PRN (Reason: cough) Qty: 80 0RF divalproex 250 mg tablet,delayed release (DR/EC) 250 mg PO DAILY Qty: 30 0RF amoxicillin 500 mg capsule 500 mg PO BID Qty: 20 0RF ondansetron 4 mg tablet,disintegrating 4 mg PO TID PRN (Reason: nausea and vomiting) 5 Days Qty: 10 0RF prednisone 50 mg tablet 50 mg PO DAILY Qty: 5 0RF benzonatate 100 mg capsule 100 mg PO TID PRN (Reason: cough) Qty: 12 0RF naproxen 500 mg tablet 500 mg PO BID Qty: 14 0RF prednisone 20 mg tablet 20 mg PO DAILY Qty: 3 0RF tamsulosin 0.4 mg capsule 0.4 mg PO DAILY Qty: 7 0RF prednisone 20 mg tablet 20 mg PO DAILY 7 Days Qty: 7 0RF tobramycin 0.3 % drops 1 drp ophthalmic (eye) Q4H Qty: 5 0RF Referrals: Hoang Hart MD [Physician] - [place],[facility] [Primary Care Provider] -
[2023-07-07 08:38] LABS: Glucose, Whole Blood 108 mg/dL (60-115)
[2023-07-07] MEDS: 0.9 % Sodium Chloride 1,000 ML 999 ML IV (08:43)
--- NOTE | 2023-07-07 08:46 | PC.NURSE ---
pt alert and oriented x3. respirations even and unlabored. pt coming from ems after having a witnessed clonic tonic seizure at work. negative head strike. unknown time of seizure and unknown down time. pt currently has the chills and reports being sensitive to light. pt nuero assessment positive. pt normal sinus on tele. seizure precautions in place.
[2023-07-07 09:07] LABS: MANUAL DIFF FLAG NO
[2023-07-07 09:11] LABS: Basophils Percent Auto 0.5 % (0-2); Eosinophils Percent Auto 0.4 % (0-4); Hematocrit 33.4 % (37.0-47.0); Hemoglobin 11.3 g/dl (12.0-16.0); Imm Gran Abs Auto 0.01 X10*3/uL (0.00-0.03); Imm Gran Pct Auto 0.1 % (0.0-0.4); Lymphocytes Absolute Auto 3.6 X10*3/uL (1.2-4.9); Lymphocytes Percent Auto 48.4 % (20-40); Mean Corpuscular HGB Conc 33.8 g/dl (31.0-35.0); Mean Corpuscular Hemoglobin 33.6 pg (27.0-33.0); Mean Corpuscular Volume 99.4 fL (80.0-98.0); Monocytes Absolute Auto 0.7 X10*3/uL (0.1-1.2); Monocytes Percent Auto 9.2 % (2-11); Neutrophils Absolute Auto 3.1 x10*3/uL (2.0-8.3); Neutrophils Percent Auto 41.4 % (45-73); Platelet Count 242 X10*3/uL (160-400); Red Blood Count 3.36 X10*6/uL (4.20-5.50); White Blood Count 7.5 X10*3/uL (4.8-10.8)
[2023-07-07 09:19] LABS: Amphetamine Screen Urine Not Detected (Not Detect); Barbiturates, Urine Not Detected (Not Detect); Benzodiazepines Screen Urine Not Detected (Not Detect); Cannabinoid Screen Urine Not Detected (Not Detect); Cocaine Screen Urine Not Detected (Not Detect); Fentanyl, urine Not Detected (Not Detect); Opiate Screen Urine Not Detected (Not Detect); Phencyclidine Screen Urine Not Detected (Not Detect)
[2023-07-07 09:25] LABS: Alanine Aminotransferase 45 U/L (0-31); Albumin Level 3.8 g/dL (3.5-5.0); Alkaline Phosphatase 55 U/L (39-117); Anion Gap 10 (12-20); Aspartate Amino Transferase 39 U/L (5-31); Bilirubin Direct 0.2 mg/dL (0.0-0.5); Bilirubin Total 0.4 mg/dL (0.0-1.0); Blood Urea Nitrogen 9 mg/dL (9-16); Carbon Dioxide 23 mmol/L (22-29); Chloride 109 mmol/L (96-108); Creatinine Clr Calc Pharmacy 127.8; Estimated Glomerular Filt Rate > 60; Glucose Random 101 mg/dL (60-115); Lipase 31 U/L (8-78); Sodium 138 mmol/L (135-145); Total Protein 6.9 g/dL (6.5-8.0)
[2023-07-07 09:27] LABS: Appearance Urine Cloudy; Color Urine Yellow; Glucose Urine UA Negative (Negative); Leukocyte Esterase Urine Moderate (2+) (Negative); Nitrite Urine Negative (Negative); PH 5.5 (5.0-9.0); Specific Gravity - Urine 1.025 (1.005-1.025); UMIC TRIGGER UACC YES; UPreg QC Valid YES; Urine Blood Negative (Negative); Urine Ketones Negative (Negative); Urine Protein Negative (Neg-Trace)
[2023-07-07 09:28] LABS: Urine Pregnancy NEGATIVE (NEGATIVE)
[2023-07-07 09:32] LABS: Bacteria Urine 4+ (None Seen); RBC Urine 0-2 /HPF (0-2); Squamous Epithelial Cell Urine >20 /HPF (0-2); UACC Culture Trigger YES; WBC Urine 21-50 /HPF (0-5)
[2023-07-07 10:14] LABS: Valproate 93.3 mcg/mL (50.0-100.0)
[2023-07-07 11:49] VITALS: BP 124/59; PULSE 85; RESP 20; O2SAT 99
== END 2023-07-07 12:25 | disposition home or self-care (01) ==
PROVIDERS: Emergency Provider Emergency Medicine
DX: G40.909 Epilepsy, unspecified, not intractable, without status epilepticus (principal); N39.0 Urinary tract infection, site not specified; E11.9 Type 2 diabetes mellitus without complications; Z79.899 Other long term (current) drug therapy; Z79.84 Long term (current) use of oral hypoglycemic drugs
CPT/HCPCS: 36415; 70450; 80048; 80076; 80164; 80307; 81001; 81025; 82947; 83690; 85025; 87086; 96360; 96361; 99284

== ENCOUNTER 2023-07-23 13:41 | Outpatient (REF) | payer MEDICAID, SELFPAY ==
[2023-07-23 14:19] LABS: MANUAL DIFF FLAG NO
[2023-07-23 15:27] LABS: Basophils Percent Auto 0.4 % (0-2); Eosinophils Percent Auto 0.2 % (0-4); Hematocrit 38.6 % (37.0-47.0); Hemoglobin 12.9 g/dl (12.0-16.0); Imm Gran Abs Auto 0.02 X10*3/uL (0.00-0.03); Imm Gran Pct Auto 0.2 % (0.0-0.4); Lymphocytes Absolute Auto 3.4 X10*3/uL (1.2-4.9); Lymphocytes Percent Auto 42.3 % (20-40); Mean Corpuscular HGB Conc 33.4 g/dl (31.0-35.0); Mean Corpuscular Hemoglobin 32.6 pg (27.0-33.0); Mean Corpuscular Volume 97.5 fL (80.0-98.0); Mean Platelet Volume 11.5 fL (9.4-12.3); Monocytes Absolute Auto 0.6 X10*3/uL (0.1-1.2); Monocytes Percent Auto 7.5 % (2-11); Neutrophils Percent Auto 49.4 % (45-73); Platelet Count 302 X10*3/uL (160-400); Red Blood Count 3.96 X10*6/uL (4.20-5.50); Red Cell Distribution Width 13.2 % (11.0-16.0)
[2023-07-23 16:45] LABS: Erythrocyte Sedimentation Rate 11 MM/HR (0-20)
[2023-07-30 12:17] LABS: Immunoglobulin E 256 kU/L (<OR=114)
== END 2023-07-23 13:42 | disposition home or self-care (01) ==
LOC: HO.LAB 13:41
PROVIDERS: PCP Internal Medicine; Visit Provider Hospitalist
DX: J45.40 Moderate persistent asthma, uncomplicated (principal); J02.9 Acute pharyngitis, unspecified; J30.9 Allergic rhinitis, unspecified
CPT/HCPCS: 36415; 82785; 85025; 85652; 86003

== ENCOUNTER 2023-07-23 13:41 | Outpatient (AMB) | payer MEDICAID, SELFPAY ==
[2023-07-23 13:47] VITALS: BP 118/60; PULSE 82; O2SAT 96; BMI 33.1
--- NOTE | 2023-07-23 13:47 | MHC.OFFVIS ---
Intake Vital Signs 07/23/23 13:47 Height 5 ft Weight 169 lb 12.095 oz BMI 33.1 BP 118/60 Blood Pressure Location Lt brachial Position Sitting Pulse 82 Pulse Source Pulse Oximeter Pulse Oximetry (%) 96 Oxygen Delivery Method Room Air Intake Visit Reasons: Restrictive Airway Disease Allergies Iodinated Contrast Media Allergy (Intermediate, Verified 07/23/23 13:50) Facial Swelling clindamycin [CLINDAMYCIN] Allergy (Unknown, Verified 07/23/23 13:50) ANAPHYLAXIS HPI HPI Comments History of Present Illness Details The patient is here for pulmonary evaluation. The patient is a 32 year woman presenting with worsening respiratory symptoms. The patient states that he is having frequent bronchitis and pneumonia. Back in December she ended up hospitalized with lower respiratory infection. She was found to have human metapneumovirus. The patient was treated and subsequently released. She is been using rescue inhaler. The patient is still having to use a rescue inhaler 2 to 3 times a week. She is not aware of any underlying allergies. She is not taking any maintenance inhalers at this time. The patient did undergo pulmonary function studies back in 2021 which we personally reviewed which demonstrated a reversible obstruction with significant small airways disease consistent with her moderate to severe asthma. In addition to this the patient did have a CT scan of the chest that we personally reviewed back in December 2022 when she had the viral pneumonia. Had significant parenchymal in airspace disease at the bases in addition to the area of the lingula. Subsequent to that she did undergo CT scan of the abdomen where the lung windows demonstrated interval clearing of the airspace disease that she had back then. This is all reassuring. Patient also had evidence of mosaic pattern and air trapping on the previous CT scan. The patient currently still has ongoing prolonged expiratory phase and end expiratory wheeze. She does benefit from maintenance therapy. Will also request additional laboratory data to assess other potential triggers such as allergies. And also to assess her immune system. The patient will follow-up in 2-3 months to see her response to therapy. [facility] Medical History (Updated 07/23/23 @ 21:23 by Johnathon Florentino MD) Chronic allergic rhinitis Otitis media Hypoxia Viral pneumonia Infection due to human metapneumovirus (hMPV) Diabetes mellitus Epilepsy Surgical History Hx of cholecystectomy Social History Household Members: Spouse and Children Housing: Apartment Do you presently have visiting nurse or other home services: No Alcohol intake: never Patient Tobacco Use Status: Never used Tobacco Advance Directives: No Advance Directives Information Provided: Yes service: No Current occupational status: employed Review of Systems Const Denies fever(s) Eyes Denies change in vision ENT Reports nasal congestion and Reports nasal discharge Card Denies chest pain Resp Reports cough and Reports wheezing GI Reports no additional complaints Musc Reports myalgias Skin/Breast Denies rash Neuro Reports no additional complaints Endo Denies flushing Bertram/Lymph Denies lymphadenopathy Aller/Immun Reports wheezing Physical Exam Vital Signs: Last Vital Signs Pulse 82 07/23/23 13:47 BP 118/60 07/23/23 13:47 Pulse Ox 96 07/23/23 13:47 Oxygen Delivery Method Room Air 07/23/23 13:47 BMI result Body Mass Index 33.1 Const General: comfortable HEENT Head: Yes normocephalic Neck Neck: Yes supple Chest Chest palpation & inspection: normal inspection of the chest Resp Effort & Inspection: normal respiratory effort and prolonged expiratory phase Auscultation: wheezes and diminished lung sounds Cardio Rate: regular rate Rhythm: regular rhythm Heart sounds: S1 normal heart sound present and S2 normal heart sound present GI Palpation (GI): Soft to palpation Skin General skin exam: no rashes or lesions noted Extrem General: Yes no clubbing, cyanosis or edema Assessment & Plan Assessment & Plan (1) Asthma: Code(s): J45.909 - Unspecified asthma, uncomplicated Qualifiers: Asthma severity: moderate Asthma persistence: persistent Asthma complication type: uncomplicated Qualified Code(s): J45.40 - Moderate persistent asthma, uncomplicated (2) Chronic allergic rhinitis: Code(s): J30.9 - Allergic rhinitis, unspecified Plan Start Symbicort continue JOANA as needed consider Singulair Bloodwork / Allergy testing F/U 2-3 months Orders: Orders Immunoglobulin E Today J02.9 - Acute pharyngitis, unspecified, J45.909 - Unspecified asthma, uncomplicated Complete Blood Count Auto Diff Today J02.9 - Acute pharyngitis, unspecified, J45.909 - Unspecified asthma, uncomplicated Erythrocyte Sedimentation Rate Today J02.9 - Acute pharyngitis, unspecified, J45.909 - Unspecified asthma, uncomplicated Rast Allergen Today J02.9 - Acute pharyngitis, unspecified, J45.909 - Unspecified asthma, uncomplicated Medications: New budesonide-formoterol 160-4.5 mcg/actuation (Symbicort) 2 puffs inhalation BID 30 days 10.2 grams 11RF J44.9 - Chronic obstructive pulmonary disease, unspecified Coding Level of Care Code New Pt Level 4 (42391) Diagnoses Moderate persistent asthma without complication J45.40 Asthma severity: moderate Asthma persistence: persistent Asthma complication type: uncomplicated Chronic allergic rhinitis J30.9 Time Spent (min) 35
== END 2023-07-23 14:06 | disposition home or self-care (01) ==
PROVIDERS: PCP Internal Medicine; Visit Provider Hospitalist
DX: J45.40 Moderate persistent asthma, uncomplicated (principal); J30.9 Allergic rhinitis, unspecified
CPT/HCPCS: 99204

== ENCOUNTER 2023-07-23 14:21 | Emergency (ER) | payer MEDICAID, SELFPAY ==
[2023-07-23 15:27] VITALS: BP 127/42; PULSE 86; RESP 17; TEMP 36; O2SAT 97; BMI 32.8
--- NOTE | 2023-07-23 15:29 | ED.GENADULT ---
HPI - General Adult General Chief complaint: Abdominal Pain Stated complaint: vomiting Time Seen by Provider: 07/23/23 21:11 Source: patient and old records reviewed Mode of arrival: ambulatory Limitations: no limitations History of Present Illness HPI narrative: 32 yo female with hx of DM, epilepsy prior cholecystectomy/ tubal ligation here with c/o starting with upper abdominal pain and n/v/d yesterday. She denies fevers, travel, sick contacts or food exposures. She was not able to take her depakote tonight. She notes she feels she has acid reflux. complaint: n/v/d Onset (ago): day(s) (1) Location: abdomen Radiation: non-radiation Severity: mild Quality: burning Pain Consistency: intermittent Relieving factors: none Exacerbating factors: eating Associated symptoms: loss of appetite, malaise and nausea/vomiting Treatments prior to arrival: none Related Data Home Medications Medication Instructions Recorded Confirmed divalproex 500 mg tablet,extended 1 tab PO BID 12/29/22 12/29/22 release 24 hr naproxen 500 mg tablet 500 mg PO BID PRN 07/23/23 valacyclovir 1 gram tablet 1,000 mg PO DAILY 07/23/23 Previous Rx's Medication Instructions Recorded Magic Mouthwash 5 ml PO TID #240 mL 12/25/22 Diphen/Lido/Antacid 1:1:1 240 mL suspension divalproex 250 mg tablet,delayed 250 mg PO DAILY #30 tabs 01/04/23 release guaifenesin 100 mg/5 mL oral liquid 5 ml PO Q4H PRN cough #80 mL 01/04/23 metformin 1,000 mg tablet 1,000 mg PO BIDWM #60 tabs 01/04/23 ondansetron 4 mg disintegrating 4 mg PO TID PRN nausea and 04/03/23 tablet vomiting 5 days #10 tabs tamsulosin 0.4 mg capsule 0.4 mg PO DAILY #7 caps 06/13/23 nitrofurantoin 100 mg PO BID #14 caps 07/07/23 monohydrate/macrocrystals 100 mg capsule (Macrobid) budesonide-formoterol HFA 160 2 puff inhalation BID 30 days 07/23/23 mcg-4.5 mcg/actuation aerosol #10.2 grams inhaler (Symbicort) ondansetron 4 mg disintegrating 4 mg PO Q8H PRN nausea and 07/23/23 tablet vomiting #20 tabs Allergies Allergy/AdvReac Type Severity Reaction Status Date / Time Iodinated Contrast Media Allergy Intermediate Facial Verified 07/23/23 13:50 Swelling clindamycin [CLINDAMYCIN] Allergy Unknown ANAPHYLAXIS Verified 07/23/23 13:50 Review of Systems Review of Systems: Constitutional : No Weight loss, No Fever, No Chills Cardiovascular : No Chest Pain, No SOB, NoEdema Respiratory : No Cough, No Sputum, No Wheezing Gastrointestinal : Positive Nausea, Positive Vomiting, positive Diarrhea, positive abdominal Pain, No Hematochezia, No Melena Genitourinary : No Dysuria, No Urinary Frequency, No Hematuria, No Urgency Musculoskeletal : No joint pain, No Myalgias, No Joint Swelling Skin : No Skin Lesions, No rash Neuro : No Weakness, No Numbness, No Dizziness, No Headache Psych : No Anxiety/Panic, No Depression All other systems reviewed and are negative. [facility] Past Medical History Source: old records reviewed Medical History Chronic allergic rhinitis Otitis media Hypoxia Viral pneumonia Infection due to human metapneumovirus (hMPV) Diabetes mellitus Epilepsy Surgical History Hx of cholecystectomy Social History Social History Household Members: Spouse and Children Housing: Apartment Do you presently have visiting nurse or other home services: No Alcohol intake: never Patient Tobacco Use Status: Never used Tobacco Advance Directives: No Advance Directives Information Provided: Yes service: No Current occupational status: employed Physical Exam ED Vital Signs: Vital Signs - 24 hr 07/23/23 15:27 07/23/23 21:57 Temperature 96.8 F 98.2 F Pulse Rate 86 80 Respiratory Rate 17 16 Blood Pressure 127/42 L 119/50 L Pulse Oximetry 97 97 Oxygen Delivery Method Room Air Room Air BMI result Body Mass Index 32.8 Appearance: Alert. Oriented X3. No acute distress. Eyes: Pupils equal, round and reactive to light. ENT: Pharynx normal. Neck: Normal inspection. Neck supple. CVS: Normal heart rate and rhythm. Pulses normal. Respiratory: No respiratory distress. Breath sounds normal. Abdomen: Soft and mild epigastric ttp no rebound or guarding Skin: Skin warm and dry. Normal skin color. Normal skin turgor. Extremities: No lower extremity edema. No calf ttp Neuro: Oriented X 3. No motor deficit. No sensory deficit. Course Course Course Narrative: RME performed by Ciara Salas PA-C. Patient is a 32 year old assigned female at presenting to the emergency department with vomiting and diarrhea. Labs and swabs ordered. Patient placed back in the waiting room pending room availability and results. Medications Administered Discontinued Medications Generic Name Dose Route Start Last Admin Trade Name Freq PRN Reason Stop Dose Admin Divalproex Sodium 500 mg 07/23/23 21:27 07/23/23 23:14 Divalproex Sodium Er 500 Mg Tab.Er.24h PO 07/23/23 21:28 500 mg ONCE ONE Administration Famotidine 20 mg 07/23/23 21:39 07/23/23 23:15 Famotidine/Pf 20 Mg/2 Ml Vial IVPUSH 07/23/23 21:40 20 mg ONCE ONE Administration Sodium Chloride 1,000 mls @ 999 mls/hr 07/23/23 21:30 07/23/23 23:12 Ns IV 07/23/23 22:30 999 mls/hr .Q1H1M NAVEEN Administration Ondansetron HCl 4 mg 07/23/23 21:26 07/23/23 23:15 Ondansetron Hcl 4 Mg/2 Ml Vial IVPUSH 07/23/23 21:27 4 mg ONCE ONE Administration Medical Decision Making Medical Decision Making [facility] Narrative: 32 yo female with hx of DM, epilepsy prior cholecystectomy/ tubal ligation here with c/o upper abdominal pain with n/v/d but denies sick contacts, travel, food exposures. At this time abdomen is benign will need basic labs, IVF, IV supportive mediactions - given her PO seizure medications and pepcid. No RLQ pain to suggest appendicitis, no mass or hernia felt, no RUQ pain and already has GB removed. Suspect gastritis or viral syndrome. Differential Diagnosis Differential Diagnoses: The differential diagnosis associated with the presentation includes gastritis, GERD, pancreatitis Admission/Observation Consideration of admission/observation: Escalation of care including admission/observation considered feels better, tolerating PO labs at baseline, took her seizure medications stable for DC Lab Data [facility] Lab Attestation statement: I reviewed the patient's lab results. 07/23/23 16:13 07/23/23 16:13 Labs: Lab Results 07/23/23 Range/Units 16:13 WBC 9.2 (4.8-10.8) X10*3/uL RBC 3.94 L (4.20-5.50) X10*6/uL Hgb 13.1 (12.0-16.0) g/dl Hct 38.6 (37.0-47.0) % MCV 98.0 (80.0-98.0) fL MCH 33.2 H (27.0-33.0) pg MCHC 33.9 (31.0-35.0) g/dl RDW 13.1 (11.0-16.0) % Plt Count 283 (160-400) X10*3/uL MPV 10.8 (9.4-12.3) fL Immature Gran % (Auto) 0.2 (0.0-0.4) % Neut % (Auto) 57.5 (45-73) % Lymph % (Auto) 34.7 (20-40) % [place] % (Auto) 7.2 (2-11) % Eos % (Auto) 0.2 (0-4) % Baso % (Auto) 0.2 (0-2) % Lymph # (Auto) 3.2 (1.2-4.9) X10*3/uL [place] # (Auto) 0.7 (0.1-1.2) X10*3/uL Eos # (Auto) 0.0 (0.0-0.4) X10*3/uL Baso # (Auto) 0.0 (0.0-0.2) X10*3/uL Abs Immat Gran (auto) 0.02 (0.00-0.03) X10*3/uL Absolute Neuts (auto) 5.3 (2.0-8.3) x10*3/uL Absolute Nucleated RBC 0.000 (0.0-0.012) X10*3/uL Nucleated RBC % (auto) 0.0 (0.0-0.2) /100WBC Sodium 141 (135-145) mmol/L Potassium 4.2 (3.3-5.1) mmol/L Chloride 101 (96-108) mmol/L Carbon Dioxide 25 (22-29) mmol/L Anion Gap 19 (12-20) BUN 20 H (9-16) mg/dL Creatinine 0.87 (0.5-1.4) mg/dL Estim Creat Clear Calc 85.4 Estimated GFR > 60 Random Glucose 101 (60-115) mg/dL Calcium 9.8 D (8.4-10.2) mg/dL Magnesium 2.1 (1.6-2.6) mg/dL Total Bilirubin 0.6 (0.0-1.0) mg/dL AST 45 H (5-31) U/L ALT 56 H (0-31) U/L Alkaline Phosphatase 55 (39-117) U/L Total Protein 8.1 H (6.5-8.0) g/dL Albumin 4.5 (3.5-5.0) g/dL Lipase 23 (8-78) U/L Beta HCG, Quant < 2 mIU/mL Urine Color Yellow Urine Appearance Clear Urine pH 5.5 (5.0-9.0) Ur Specific [place] 1.015 (1.005-1.025) Urine Protein Trace (Neg-Trace) mg/dL Urine Glucose (UA) Negative (Negative) mg/dL Urine Ketones Trace (Negative) mg/dL Urine Blood Negative (Negative) Urine Nitrite Negative (Negative) Ur Leukocyte Esterase Trace H (Negative) Urine RBC 0-2 (0-2) /HPF Urine WBC 0-5 (0-5) /HPF Ur Squamous Epith Cells 3-5 (0-2) /HPF Urine Bacteria None Seen (None Seen) Hyaline Casts 6-10 (0-2) /LPF Influenza Type A (PCR) NEGATIVE (Negative) Influenza Type B (PCR) NEGATIVE (Negative) RSV RNA Qual (PCR) NEGATIVE (Negative) SARS-CoV-2 RNA (RT-PCR) NEGATIVE (Negative) External Record Review External record reviewed: Inpatient record Tests considered The following testing was considered but not selected: US but given baseline LFTs and prior GB removal - doubt acute surgical pathology and no acute abdomen to suggest perforation Prescription Management I considered prescription management with: Other (zofran) Chronic Conditions Patient?s care impacted by: Diabetes Discharge Plan Discharge Clinical Impression: Gastritis Qualifiers: Gastritis type: unspecified gastritis Chronicity: acute Gastritis bleeding: without bleeding Qualified Code(s): K29.00 - Acute gastritis without bleeding Acute tension headache Qualifiers: Intractability: not intractable Qualified Code(s): G44.209 - Tension-type headache, unspecified, not intractable Patient Disposition: Home, Self-Care Instructions: Gastritis (ED), Tension Headache (ED) Additional Instructions: return for worsening pain, vomiting, fevers, black or bloody stools, severe headaches, confusion, change in vision or any other concerns Regrese si el dolor empeora, v?mitos, fiebre, heces negras o con marybel, harrison de giovanni intensos, confusi?n, cambios en la visi?n o cualquier otra inquietud. Prescriptions: New ondansetron 4 mg tablet,disintegrating 4 mg PO Q8H PRN (Reason: nausea and vomiting) Qty: 20 0RF No Action Magic Mouthwash Diphen/Lido/Antacid 1:1:1 240 mL suspension 5 ml PO TID Qty: 240 0RF Rx Instructions: Lidocaine Viscous 2 % 80mL; diphenhydramine 12.5 mg/5 mL 80mL; aluminum-mag hydrox-simeth [id number]/5mL 80mL Swish and spit, do not swallow divalproex 500 mg tablet extended release 24 hr 1 tab PO BID metformin 1,000 mg Tablet 1,000 mg PO BIDWM Qty: 60 0RF guaifenesin 100 mg/5 mL Liquid 5 ml PO Q4H PRN (Reason: cough) Qty: 80 0RF divalproex 250 mg tablet,delayed release (DR/EC) 250 mg PO DAILY Qty: 30 0RF ondansetron 4 mg tablet,disintegrating 4 mg PO TID PRN (Reason: nausea and vomiting) 5 Days Qty: 10 0RF tamsulosin 0.4 mg capsule 0.4 mg PO DAILY Qty: 7 0RF nitrofurantoin monohyd/m-cryst [Macrobid] 100 mg capsule 100 mg PO BID Qty: 14 0RF Rx Instructions: must administer with a meal/food naproxen 500 mg tablet 500 mg PO BID PRN valacyclovir 1 gram tablet 1,000 mg PO DAILY budesonide-formoterol [Symbicort] 160-4.5 mcg/actuation HFA aerosol inhaler 2 puff inhalation BID 30 Days Qty: 10.2 11RF Print Language: Azeri
[2023-07-23 16:18] LABS: MANUAL DIFF FLAG NO
[2023-07-23 16:20] LABS: Basophils Percent Auto 0.2 % (0-2); Eosinophils Percent Auto 0.2 % (0-4); Hematocrit 38.6 % (37.0-47.0); Hemoglobin 13.1 g/dl (12.0-16.0); Imm Gran Abs Auto 0.02 X10*3/uL (0.00-0.03); Imm Gran Pct Auto 0.2 % (0.0-0.4); Lymphocytes Absolute Auto 3.2 X10*3/uL (1.2-4.9); Lymphocytes Percent Auto 34.7 % (20-40); Mean Corpuscular HGB Conc 33.9 g/dl (31.0-35.0); Mean Corpuscular Hemoglobin 33.2 pg (27.0-33.0); Mean Platelet Volume 10.8 fL (9.4-12.3); Monocytes Absolute Auto 0.7 X10*3/uL (0.1-1.2); Monocytes Percent Auto 7.2 % (2-11); Neutrophils Absolute Auto 5.3 x10*3/uL (2.0-8.3); Neutrophils Percent Auto 57.5 % (45-73); Platelet Count 283 X10*3/uL (160-400); Red Blood Count 3.94 X10*6/uL (4.20-5.50); Red Cell Distribution Width 13.1 % (11.0-16.0); White Blood Count 9.2 X10*3/uL (4.8-10.8)
[2023-07-23 16:23] LABS: Appearance Urine Clear; Color Urine Yellow; Glucose Urine UA Negative (Negative); Leukocyte Esterase Urine Trace (Negative); Nitrite Urine Negative (Negative); PH 5.5 (5.0-9.0); Specific Gravity - Urine 1.015 (1.005-1.025); UMIC TRIGGER UACC YES; Urine Blood Negative (Negative); Urine Ketones Trace mg/dL (Negative); Urine Protein Trace mg/dL (Neg-Trace)
[2023-07-23 16:35] LABS: Alanine Aminotransferase 56 U/L (0-31); Albumin Level 4.5 g/dL (3.5-5.0); Alkaline Phosphatase 55 U/L (39-117); Anion Gap 19 (12-20); Aspartate Amino Transferase 45 U/L (5-31); Bilirubin Total 0.6 mg/dL (0.0-1.0); Blood Urea Nitrogen 20 mg/dL (9-16); Calcium 9.8 mg/dL (8.4-10.2); Carbon Dioxide 25 mmol/L (22-29); Chloride 101 mmol/L (96-108); Creatinine Clr Calc Pharmacy 85.4; Estimated Glomerular Filt Rate > 60; Glucose Random 101 mg/dL (60-115); Magnesium 2.1 mg/dL (1.6-2.6); Potassium 4.2 mmol/L (3.3-5.1); Sodium 141 mmol/L (135-145); Total Protein 8.1 g/dL (6.5-8.0)
[2023-07-23 16:43] LABS: HCG Quantitative < 2 mIU/mL
[2023-07-23 16:47] LABS: Bacteria Urine None Seen (None Seen); RBC Urine 0-2 /HPF (0-2); WBC Urine 0-5 /HPF (0-5)
[2023-07-23 17:18] LABS: Influenza A PCR NEGATIVE (Negative); Influenza B PCR NEGATIVE (Negative); Resp Syncy Virus RNA Qual PCR NEGATIVE (Negative); SARS COV2 PCR INHOUSE NEGATIVE (Negative)
[2023-07-23 21:36] LABS: Lipase 23 U/L (8-78)
[2023-07-23 21:57] VITALS: BP 119/50; PULSE 80; RESP 16; TEMP 36.8; O2SAT 97
[2023-07-23] MEDS: 0.9 % Sodium Chloride 1,000 ML 999 ML IV (23:12)
[2023-07-23] MEDS: Divalproex Sodium ER 500 MG TAB.ER.24H PO (23:14)
[2023-07-23] MEDS: Famotidine/PF 20 MG/2 ML VIAL IVPUSH (23:15)
[2023-07-23] MEDS: ondansetron HCL 4 MG/2 ML VIAL IVPUSH (23:15)
[2023-07-23] MEDS: Ketorolac Tromethamine 15 MG/ML VIAL IVPUSH (23:51)
[2023-07-23 23:55] VITALS: BP 131/72; PULSE 78; RESP 16; O2SAT 96
== END 2023-07-24 00:25 | disposition home or self-care (01) ==
PROVIDERS: Physician Assistant Medical; Emergency Provider Emergency Medicine; PCP Internal Medicine
DX: K29.00 Acute gastritis without bleeding (principal); G44.209 Tension-type headache, unspecified, not intractable; Z20.822 Contact with and (suspected) exposure to COVID-19; Z20.828 Contact with and (suspected) exposure to other viral communicable diseases; E11.9 Type 2 diabetes mellitus without complications
CPT/HCPCS: 0241U; 36415; 80053; 81001; 83690; 83735; 84702; 85025; 96374; 96375; 99284; J1885; J2405

== ENCOUNTER 2023-07-30 17:54 | Observation (INO) | payer MEDICAID, SELFPAY ==
[2023-07-30 18:10] VITALS: BP 143/43; PULSE 88; RESP 20; TEMP 36.7; O2SAT 98
--- NOTE | 2023-07-30 18:13 | MHC.EDTECH ---
PATIENT CAME VIA EMS ,VITALS SIGN TAKEN ,PT WAS HOOKED UP TO SHIFT SUPERVISOR RN ,PT WAS CHANGE INTO HOSPITAL ATTIRE ,WARM BLANKET GIVEN ,AND SEIZURE PADS IN PLACE .
[2023-07-30 18:16] VITALS: BP 114/65; BP 143/43; PULSE 75; PULSE 80; RESP 12; TEMP 36.7; O2SAT 97; BMI 33.2
--- NOTE | 2023-07-30 18:18 | MHC.EDTECH ---
PT arrived via EMS after seizure. Pt incontinent, pct helped changed over and cleaned up. Pt resting and expressed comfort.
--- NOTE | 2023-07-30 18:23 | ECG_ITS ---
Test Reason : SEIZURE Blood Pressure : / mmHG Vent. Rate : 078 BPM Atrial Rate : 078 BPM P-R Int : 144 ms QRS Dur : 084 ms QT Int : 366 ms P-R-T Axes : 056 058 028 degrees QTc Int : 417 ms Normal sinus rhythm with sinus arrhythmia Normal ECG When compared with ECG of 16-JUN-2023 15:03, No significant change was found Referred By: Generic ED Physician Electronically Signed By:EHSAN AVILES
[2023-07-30 18:35] LABS: MANUAL DIFF FLAG NO
--- NOTE | 2023-07-30 18:36 | ED.SEIZURE ---
HPI - Seizure General Chief Complaint: Seizure Stated Complaint: SEIZURE Time Seen by Provider: 07/30/23 18:28 Source: patient and EMS Mode of arrival: EMS Limitations: no limitations History of Present Illness HPI Narrative: a 32-year-old female history of seizure on Depakote 750 mg a.m. and 500 mg p.m. patient has been compliant with her anti seizure medication patient received her flu shot vaccination today then started to have seizure patient witnessed to have for seizure before arrival with urinary incontinence but no tongue biting, patient been having postictal time of confusion. Patient do not feel headache, no CP, no SOB, no abdominal pain, no nausea, no vomiting, no dysuria, no frequency urination, no fever, no chills , no fall or head injury. patient stated that everything happened after she received the flu vaccination. Seizure History: Yes Related Data Home Medications Medication Instructions Recorded Confirmed divalproex 500 mg tablet,extended 1 tab PO BID 12/29/22 12/29/22 release 24 hr naproxen 500 mg tablet 500 mg PO BID PRN 07/23/23 valacyclovir 1 gram tablet 1,000 mg PO DAILY 07/23/23 Previous Rx's Medication Instructions Recorded Magic Mouthwash 5 ml PO TID #240 mL 12/25/22 Diphen/Lido/Antacid 1:1:1 240 mL suspension divalproex 250 mg tablet,delayed 250 mg PO DAILY #30 tabs 01/04/23 release guaifenesin 100 mg/5 mL oral liquid 5 ml PO Q4H PRN cough #80 mL 01/04/23 metformin 1,000 mg tablet 1,000 mg PO BIDWM #60 tabs 01/04/23 ondansetron 4 mg disintegrating 4 mg PO TID PRN nausea and 04/03/23 tablet vomiting 5 days #10 tabs tamsulosin 0.4 mg capsule 0.4 mg PO DAILY #7 caps 06/13/23 nitrofurantoin 100 mg PO BID #14 caps 07/07/23 monohydrate/macrocrystals 100 mg capsule (Macrobid) budesonide-formoterol HFA 160 2 puff inhalation BID 30 days 07/23/23 mcg-4.5 mcg/actuation aerosol #10.2 grams inhaler (Symbicort) ondansetron 4 mg disintegrating 4 mg PO Q8H PRN nausea and 07/23/23 tablet vomiting #20 tabs Allergies Allergy/AdvReac Type Severity Reaction Status Date / Time Iodinated Contrast Media Allergy Intermediate Facial Verified 07/23/23 13:50 Swelling clindamycin [CLINDAMYCIN] Allergy Unknown ANAPHYLAXIS Verified 07/23/23 13:50 Review of Systems Review of Systems: All other systems are reviewed and are negative Constitutional: Reports as per HPI and Reports no additional constitutional complaints Eyes: Reports as per HPI and Reports no additional eye complaints Reports system reviewed and no additional complaints, except as documented Cardiovascular: Reports as per HPI and Reports no additional cardiovascular complaints Respiratory: Reports as per HPI and Reports no additional respiratory complaints Gastrointestinal: Reports as per HPI and Reports no additional gastrointestinal complaints Genitourinary: Reports no additional female genitourinary complaints Musculoskeletal: Reports no additional musculoskeletal complaints Skin/Breast: Reports system reviewed and no additional complaints, except as docu Psychiatric: Reports no additional psychiatric complaints Endocrine: Reports no additional endocrine complaints Hematologic/Lymphatic: Reports no additional hematologic/lymphatic complaints Allergic/Immunologic: Reports no additional allergic/immunologic complaints Reports system reviewed and no additional complaints, except as documented and Reports Abnormal speech present [facility] Past Medical History Medical History Chronic allergic rhinitis Otitis media Hypoxia Viral pneumonia Infection due to human metapneumovirus (hMPV) Diabetes mellitus Epilepsy Surgical History Hx of cholecystectomy Social History Social History Household Members: Spouse and Children Housing: Apartment Do you presently have visiting nurse or other home services: No Alcohol intake: never Patient Tobacco Use Status: Never used Tobacco Smoked in Last 30 Days: No Use of substances other than those prescribed or required for medical reasons: No Advance Directives: No Advance Directives Information Provided: No service: No Current occupational status: employed Physical Exam Vital Signs: Vital Signs: Last Vital Signs Temp 97.6 F 07/30/23 20:12 Pulse 73 07/30/23 20:12 Resp 16 07/30/23 20:12 BP 123/79 07/30/23 20:12 Pulse Ox 99 07/30/23 20:12 O2 Del Method Room Air 07/30/23 20:12 BMI result Body Mass Index 33.2 Vital signs have been reviewed and appear to be correct. Blood pressure elevated. Heart rate normal. Respiratory rate normal. Temperature normal. Oxygen saturation normal. Appearance: Alert. Oriented X3. No acute distress. Head: Normal external exam. Normocephalic. Atraumatic. No Ordoñez signs noted. No raccoon eyes noted Eyes: PERRLA. EOMI. Conjunctiva and sclera normal. Eyelids normal. ENT: TM's Normal. Pharynx normal. Uvula midline. Moist mucous membranes. No trismus noted. No drooling noted. No muffled voice noted. Neck: Normal inspection. Neck supple. FROM. No adenopathy. Thyroid Normal. No meningeal signs. No neck mass noted. CVS: Normal heart rate and rhythm. Heart sound normal. No murmurs noted. Pulses normal throughout. Respiratory: No respiratory distress. Painless inspiration. Breath sounds normal. No wheezes/rales/rhonchi noted. Chest nontender. No accessory muscle usage noted or decreased air movement noted. Abdomen: Soft and nontender. Bowel sounds normal in all 4 quadrants. No distention noted. No organomegaly noted. No visible injury noted. Back: No CVA tenderness. Full range of motion noted. Skin: Skin warm and dry. Normal skin color. Normal skin turgor. No rashes/lesions/lacerations noted. Extremities: No lower extremity edema. Extremities exhibit normal range of motion. Extremities nontender. Neuro: Oriented X 3. Cranial nerve exam: II-XII are grossly intact No motor deficit. No sensory deficit. Reflexes normal. Course Course Course Narrative: a 32-year-old female history of seizure disorder patient is compliant with her medication Keppra. Medications Administered Discontinued Medications Generic Name Dose Route Start Last Admin Trade Name Freq PRN Reason Stop Dose Admin Acetaminophen 650 mg 07/30/23 20:14 07/30/23 20:32 Acetaminophen 325 Mg Tablet PO 07/30/23 20:15 650 mg ONCE ONE Administration Sodium Chloride 1,000 mls @ 999 mls/hr 07/30/23 18:36 07/30/23 20:11 Ns IV 07/30/23 19:36 999 mls/hr .Q1H1M ONE Administration Medical Decision Making Differential Diagnosis Differential Diagnoses: The differential diagnosis associated with the presentation includes ( status epilepticus, flu vaccination side effect, electrolyte abnormality, subtherapeutic Keppra level, electrolyte abnormality, severe anemia, UTI, .) Admission/Observation Consideration of admission/observation: Escalation of care including admission/observation considered Lab Data MDM Lab Attestation statement: I reviewed the patient's lab results. 07/30/23 18:31 07/30/23 19:01 Labs: Lab Results 07/30/23 07/30/23 07/30/23 Range/Units 18:31 18:59 19:01 WBC 6.8 (4.8-10.8) X10*3/uL RBC 3.49 L (4.20-5.50) X10*6/uL Hgb 11.7 L (12.0-16.0) g/dl Hct 34.9 L (37.0-47.0) % MCV 100.0 H (80.0-98.0) fL MCH 33.5 H (27.0-33.0) pg MCHC 33.5 (31.0-35.0) g/dl RDW 13.5 (11.0-16.0) % Plt Count 262 (160-400) X10*3/uL MPV 11.2 (9.4-12.3) fL Immature Gran % (Auto) 0.3 (0.0-0.4) % Neut % (Auto) 50.1 (45-73) % Lymph % (Auto) 42.7 H (20-40) % [place] % (Auto) 6.3 (2-11) % Eos % (Auto) 0.3 (0-4) % Baso % (Auto) 0.3 (0-2) % Lymph # (Auto) 2.9 (1.2-4.9) X10*3/uL [place] # (Auto) 0.4 (0.1-1.2) X10*3/uL Eos # (Auto) 0.0 (0.0-0.4) X10*3/uL Baso # (Auto) 0.0 (0.0-0.2) X10*3/uL Abs Immat Gran (auto) 0.02 (0.00-0.03) X10*3/uL Absolute Neuts (auto) 3.4 (2.0-8.3) x10*3/uL Absolute Nucleated RBC 0.000 (0.0-0.012) X10*3/uL Nucleated RBC % (auto) 0.0 (0.0-0.2) /100WBC Sodium 143 142 (135-145) mmol/L Potassium 4.1 3.5 (3.3-5.1) mmol/L Chloride 104 105 (96-108) mmol/L Carbon Dioxide 26 26 (22-29) mmol/L Anion Gap 17 15 (12-20) BUN 11 10 (9-16) mg/dL Creatinine 0.61 0.56 (0.5-1.4) mg/dL Estim Creat Clear Calc 122.7 133.5 Estimated GFR > 60 > 60 Random Glucose 100 96 (60-115) mg/dL Calcium 10.0 9.1 D (8.4-10.2) mg/dL Total Bilirubin 0.4 (0.0-1.0) mg/dL AST 47 H (5-31) U/L ALT 55 H (0-31) U/L Alkaline Phosphatase 51 (39-117) U/L Total Protein 7.3 (6.5-8.0) g/dL Albumin 4.1 (3.5-5.0) g/dL Lipase 27 (8-78) U/L Urine Color Yellow Urine Appearance Clear Urine pH 6.0 (5.0-9.0) Ur Specific [place] 1.020 (1.005-1.025) Urine Protein Negative (Neg-Trace) mg/dL Urine Glucose (UA) Negative (Negative) mg/dL Urine Ketones Trace (Negative) mg/dL Urine Blood Negative (Negative) Urine Nitrite Negative (Negative) Ur Leukocyte Esterase Trace H (Negative) Urine RBC 0-2 (0-2) /HPF Urine WBC 0-5 (0-5) /HPF Ur Squamous Epith Cells 3-5 (0-2) /HPF Urine Bacteria Trace (None Seen) Hyaline Casts 0-2 (0-2) /LPF Urine Test NEGATIVE (NEGATIVE) Urine Opiates Screen Not Detected (Not Detect) Urine Fentanyl Screen Not Detected (Not Detect) Ur Barbiturates Screen Not Detected (Not Detect) Ur Phencyclidine Scrn Not Detected (Not Detect) Ur Amphetamines Screen Not Detected (Not Detect) U Benzodiazepines Scrn Not Detected (Not Detect) Urine Cocaine Screen Not Detected (Not Detect) U Marijuana (THC) Screen Not Detected (Not Detect) Chronic Conditions Patient?s care impacted by: Other ( Seizure.) Discharge Plan Discharge Clinical Impression: Epilepsy Patient Disposition: Admitted As Inpatient
[2023-07-30 18:47] LABS: Basophils Percent Auto 0.3 % (0-2); Eosinophils Percent Auto 0.3 % (0-4); Hematocrit 34.9 % (37.0-47.0); Hemoglobin 11.7 g/dl (12.0-16.0); Imm Gran Abs Auto 0.02 X10*3/uL (0.00-0.03); Imm Gran Pct Auto 0.3 % (0.0-0.4); Lymphocytes Absolute Auto 2.9 X10*3/uL (1.2-4.9); Lymphocytes Percent Auto 42.7 % (20-40); Mean Corpuscular HGB Conc 33.5 g/dl (31.0-35.0); Mean Corpuscular Hemoglobin 33.5 pg (27.0-33.0); Mean Platelet Volume 11.2 fL (9.4-12.3); Monocytes Absolute Auto 0.4 X10*3/uL (0.1-1.2); Monocytes Percent Auto 6.3 % (2-11); Neutrophils Absolute Auto 3.4 x10*3/uL (2.0-8.3); Neutrophils Percent Auto 50.1 % (45-73); Platelet Count 262 X10*3/uL (160-400); Red Blood Count 3.49 X10*6/uL (4.20-5.50); Red Cell Distribution Width 13.5 % (11.0-16.0); White Blood Count 6.8 X10*3/uL (4.8-10.8)
[2023-07-30 18:51] LABS: Alanine Aminotransferase 55 U/L (0-31); Albumin Level 4.1 g/dL (3.5-5.0); Alkaline Phosphatase 51 U/L (39-117); Anion Gap 17 (12-20); Aspartate Amino Transferase 47 U/L (5-31); Bilirubin Total 0.4 mg/dL (0.0-1.0); Blood Urea Nitrogen 11 mg/dL (9-16); Carbon Dioxide 26 mmol/L (22-29); Chloride 104 mmol/L (96-108); Creatinine Clr Calc Pharmacy 122.7; Estimated Glomerular Filt Rate > 60; Glucose Random 100 mg/dL (60-115); Potassium 4.1 mmol/L (3.3-5.1); Sodium 143 mmol/L (135-145); Total Protein 7.3 g/dL (6.5-8.0)
[2023-07-30 19:13] LABS: Amphetamine Screen Urine Not Detected (Not Detect); Barbiturates, Urine Not Detected (Not Detect); Benzodiazepines Screen Urine Not Detected (Not Detect); Cannabinoid Screen Urine Not Detected (Not Detect); Cocaine Screen Urine Not Detected (Not Detect); Fentanyl, urine Not Detected (Not Detect); Opiate Screen Urine Not Detected (Not Detect); Phencyclidine Screen Urine Not Detected (Not Detect)
[2023-07-30 19:15] LABS: Appearance Urine Clear; Color Urine Yellow; Glucose Urine UA Negative (Negative); Leukocyte Esterase Urine Trace (Negative); Nitrite Urine Negative (Negative); UMIC TRIGGER UACC YES; Urine Blood Negative (Negative); Urine Ketones Trace mg/dL (Negative); Urine Protein Negative (Neg-Trace)
[2023-07-30 19:17] LABS: UPreg QC Valid YES; Urine Pregnancy NEGATIVE (NEGATIVE)
[2023-07-30 19:18] LABS: Anion Gap 15 (12-20); Blood Urea Nitrogen 10 mg/dL (9-16); Calcium 9.1 mg/dL (8.4-10.2); Carbon Dioxide 26 mmol/L (22-29); Chloride 105 mmol/L (96-108); Creatinine Clr Calc Pharmacy 133.5; Estimated Glomerular Filt Rate > 60; Glucose Random 96 mg/dL (60-115); Lipase 27 U/L (8-78); Potassium 3.5 mmol/L (3.3-5.1); Sodium 142 mmol/L (135-145)
[2023-07-30 19:20] LABS: Bacteria Urine Trace (None Seen); Hyaline Casts Urine 0-2 /LPF (0-2); RBC Urine 0-2 /HPF (0-2); WBC Urine 0-5 /HPF (0-5)
[2023-07-30] MEDS: 0.9 % Sodium Chloride 1,000 ML 999 ML IV (20:11)
[2023-07-30 20:12] VITALS: BP 123/79; PULSE 73; RESP 16; TEMP 36.4; O2SAT 99
--- NOTE | 2023-07-30 20:13 | P.HPHOSP_ITS ---
<Statement entered by Kezia Man MD - 07/30/23 23:42> the patient was seen and evaluated with PAT Mann. I agree with his note, assessment and plan with the following. In summary, a 32 years old lady with hx of seizure having 2nd breakthrough seizure in a week after receiving the Vaccine earlier today. Close monitoring increase Valproate to 750 bid as level within normal Neurology eval Rest of evaluations by PA note. 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 Sharma at [facility] who presents to the ED for evaluation after having a witnessed seizure at work earlier today. Patient states that she received a flu shot earlier in the afternoon at 15:00 and then went to work. At approximately 16:45 patient said she felt dizzy, her vision started to go ?blank?, she felt like she could not move, and her eye started to tear up. Patient then had a witnessed seizure at work. Patient's was there and held her head to prevent her hitting the floor. Patient reports that this seizure was a particularly ?strong one . Patient was also incontinent of urine and had mild suprapubic pain particularly noticeable when she lays on her side; patient says this is new and she has never experienced incontinence or this kind of pain before. Reports she has been taking all of her medications as prescribed without missing any doses. Also notes her she had a seizure 8 days prior on 07/22/2023. Last seizure prior to that was 3 months ago. Patient states she has been on her same medications and doses during this period of time. Currently patient is experiencing a headache and mild suprapubic pain, otherwise has no acute medical complaints. Denies fever, chills, nausea, vomiting. No chest pain/pressure, palpitations. Denies shortness of breath. No numbness or tingling in extremities. In the ED patient was afebrile, but slightly hypertensive at 143/43. Labs were significant for H&H 11.7/34.9, AST 47, ALT 55. Electrolytes WNL. Renal function baseline. Lipase WNL a 27. UA negative for UTI. Tox screen negative. EKG demonstrated normal sinus rhythm with nonspecific T-wave inversion in V1 and without evidence of ST elevations or depressions. Pt was treated with acetaminophen and IVF. Pt will be admitted to the hospital under observation on telemetry for evaluation and monitoring of breakthrough seizure. Review of Systems 2 Review of Systems: Witnessed seizure w/incontinence of urine Headache Mild suprapubic pain, especially with laying on side Denies numbness or tingling in extremities No fever, chills, nausea, vomiting, diarrhea Denies chest pain/pressure, palpitations No shortness of breath [facility] Medical History Chronic allergic rhinitis Otitis media Hypoxia Viral pneumonia Infection due to human metapneumovirus (hMPV) Diabetes mellitus Epilepsy Surgical History Hx of cholecystectomy Social History Household Members: Spouse and Children Housing: Apartment Do you presently have visiting nurse or other home services: No Alcohol intake: never Patient Tobacco Use Status: Never used Tobacco service: No Current occupational status: employed Meds Allergies Allergy/AdvReac Type Severity Reaction Status Date / Time Iodinated Contrast Media Allergy Intermediate Facial Verified 07/23/23 13:50 Swelling clindamycin [CLINDAMYCIN] Allergy Unknown ANAPHYLAXIS Verified 07/23/23 13:50 Home Medications Medication Instructions Recorded Confirmed Last Taken Type divalproex 500 mg tablet,extended 1 tab PO BID 12/29/22 12/29/22 12/29/22 History release 24 hr naproxen 500 mg tablet 500 mg PO BID PRN 07/23/23 Unknown History valacyclovir 1 gram tablet 1,000 mg PO DAILY 07/23/23 Unknown History Physical Exam 2 Vital Signs and Narrative: Vital Signs: Last Vital Signs Temp 97.6 F 07/30/23 20:12 Pulse 73 07/30/23 20:12 Resp 16 07/30/23 20:12 BP 123/79 07/30/23 20:12 Pulse Ox 99 07/30/23 20:12 O2 Del Method Room Air 07/30/23 20:12 BMI result Body Mass Index 33.2 Constitutional: Alert, in no acute distress. Mental Status: Oriented to person, place and time. Eyes: Pupils are equal, round, and reactive to light. Ear, Nose, and Throat: Oropharynx clear, mucous membranes moist. Ears and nose without deformities. Trachea midline. Respiratory: Clear to auscultation bilaterally. No wheezing, rales, or rhonchi. Cardiovascular: S1, S2 regular. No murmurs, rubs, or gallops. Gastrointestinal: Abdomen soft, non-tender, non-distended. Normal bowel sounds. Neurologic: Cranial nerves II-XII are grossly intact bilaterally. No focal neurological deficits. Moves all extremities spontaneously. Skin: No rashes or lesions noted. Musculoskeletal: No cyanosis or clubbing. Extremities: No edema. Psychiatric: Quiet and subdued, speaking softly. Results Labs 07/30/23 18:31 07/30/23 19:01 Labs: Laboratory Results - last 24 hr 07/30/23 07/30/23 07/30/23 18:31 18:59 19:01 MCV 100.0 H MCH 33.5 H MCHC 33.5 RDW 13.5 Plt Count 262 MPV 11.2 Immature Gran % (Auto) 0.3 Neut % (Auto) 50.1 Lymph % (Auto) 42.7 H [place] % (Auto) 6.3 Eos % (Auto) 0.3 Baso % (Auto) 0.3 Lymph # (Auto) 2.9 [place] # (Auto) 0.4 Eos # (Auto) 0.0 Baso # (Auto) 0.0 Abs Immat Gran (auto) 0.02 Absolute Neuts (auto) 3.4 Absolute Nucleated RBC 0.000 Nucleated RBC % (auto) 0.0 Anion Gap 17 15 Estim Creat Clear Calc 122.7 133.5 Estimated GFR > 60 > 60 Random Glucose 100 96 Calcium 10.0 9.1 D Total Bilirubin 0.4 AST 47 H ALT 55 H Alkaline Phosphatase 51 Total Protein 7.3 Albumin 4.1 Lipase 27 Urine Color Yellow Urine Appearance Clear Urine pH 6.0 Ur Specific [place] 1.020 Urine Protein Negative Urine Glucose (UA) Negative Urine Ketones Trace Urine Blood Negative Urine Nitrite Negative Ur Leukocyte Esterase Trace H Urine RBC 0-2 Urine WBC 0-5 Ur Squamous Epith Cells 3-5 Urine Bacteria Trace Hyaline Casts 0-2 Urine Test NEGATIVE Urine Opiates Screen Not Detected Urine Fentanyl Screen Not Detected Ur Barbiturates Screen Not Detected Ur Phencyclidine Scrn Not Detected Ur Amphetamines Screen Not Detected U Benzodiazepines Scrn Not Detected Urine Cocaine Screen Not Detected U Marijuana (THC) Screen Not Detected Assessment and Plan (1) Breakthrough seizure: Status: Acute Plan Pt is a 32-year-old female with a PMH significant for?moderate persistent asthma, non-insulin diabetes type 2, 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 Sharma at [facility] who presents to the ED for evaluation after having a witnessed seizure at work earlier today. Pt will be admitted to the hospital under observation on telemetry for evaluation and monitoring of breakthrough seizure. Breakthrough seizure Patient experienced witnessed seizure this afternoon, had additional seizure 8 days prior on 07/22/2023 Pt normally on a split dosing: Divalproex 750 mg a.m. and 500 mg p.m. Pt reports medication compliance, valproic acid therapeutic at 65.[address] Keith at [facility] Will give any additional 250 mg tonight, Lorazepam p.r.n. for seizure activity Seizure precautions Neurology consult Monitor on telemetry Omt-sdfuxjv-[id number] diabetes type 2 Hold metformin Sliding-scale insulin Diabetic diet Moderate persistent asthma Not in acute exacerbation Continue home inhalers Full Code Attending:?Dr. Man DVT Prophylaxis: Lovenox Patient will be admitted to the hospital under observation on telemetry for evaluation monitoring breakthrough seizure. Time Spent With Patient Time: Total time managing care of this patient today ____ minutes. Quality Stroke Does the patient have a stroke diagnosis?: No VTE Prior VTE?: No VTE Risk Level:: Medical - moderate - high VTE Device Contraindication: Treatment Not Indicated VTE Drug Contraindication: N/A - Med Ordered
--- NOTE | 2023-07-30 20:13 | PC.NURSE ---
ASSUMED CARE OF PT
[2023-07-30] MEDS: Acetaminophen 325 MG TABLET 650 MG PO (20:32)
[2023-07-30] MEDS: Divalproex Sodium ER 500 MG TAB.ER.24H PO (21:14)
[2023-07-30 21:17] LABS: Valproate 65.9 mcg/mL (50.0-100.0)
--- NOTE | 2023-07-30 21:56 | PC.NURSE ---
spoke to provider, she will only receive the 500mg of depaoke at night and the 250mg and 500mg in the am
--- NOTE | 2023-07-30 22:02 | PC.NURSE ---
provider ordered an extra 250mg of depakote for this evening. Will administer
[2023-07-30] MEDS: Divalproex Sodium ER 250 MG TAB.ER.24H PO (22:08)
[2023-07-30 22:13] VITALS: BP 132/79; PULSE 68; RESP 16; TEMP 36.6; O2SAT 97
[2023-07-30] MEDS: Enoxaparin Sodium 40 MG/0.4 ML SYRINGE SUBCUT (22:17)
--- NOTE | 2023-07-30 22:29 | PHA.MEDREC ---
Pharmacy Consult ? Medication Reconciliation Pharmacy has completed the medication reconciliation.
--- NOTE | 2023-07-31 | EEG_ITS ---
FINDINGS: The waking background activity consists of a cfl-[id number] voltage 8 to 8.5 hertz posterior alpha frequency that is seen symmetrically and attenuates well with eye opening while low-voltage fast frequencies predominate anteriorly. Drowsiness is characterized by diffuse theta slowing. No sleep stages are identified. Photic stimulation produces symmetrical photic driving in the posterior quadrants. No focal, lateralizing, or paroxysmal discharges are seen. IMPRESSION: This awake and drowsy EEG is within normal limits. MD VICTORIANO Ruggiero/MARTELL / [phone]
--- NOTE | 2023-07-31 01:23 | PC.NURSE ---
Nurse to nurse report given to accepting unit nurse. Pt belongings list completed. Pt has depakote and metformin in backpack. No controlled substances. Informed charge nurse. Pt unable to send home a no family with her. Educated pt on not taking medication. Informed accepting unit RN
[2023-07-31] MEDS: Famotidine 20 MG TABLET PO ×2 (01:30→09:37)
[2023-07-31] MEDS: 0.9 % Sodium Chloride Flush 3 ML SYRINGE IVFLUSH ×2 (01:32→09:37)
[2023-07-31 02:16] VITALS: BP 125/60; PULSE 73; RESP 18; TEMP 36.4; O2SAT 98
--- NOTE | 2023-07-31 03:43 | MHC.EDTECH ---
Seizure pads left with patient Per RN Keeley request, for Seizure protocol.
[2023-07-31 07:45] LABS: Glucose, Whole Blood 85 mg/dL (60-115)
[2023-07-31 07:51] VITALS: BP 112/77; PULSE 66; RESP 16; TEMP 36.8; O2SAT 95
[2023-07-31] MEDS: Loratadine 10 MG TABLET PO (09:37)
[2023-07-31] MEDS: Divalproex Sodium 250 MG TABLET.DR PO (09:37)
[2023-07-31] MEDS: Divalproex Sodium ER 500 MG TAB.ER.24H PO (09:37)
--- NOTE | 2023-07-31 10:00 | P.CNNE_ITS ---
History of Present Illness Data of Consult Service Date: 07/31/23 Primary Care Provider: Kath Carey MD HPI Reason for consult: Seizure This is a 32-year-old female with h/o asthma, non-insulin diabetes type 2, 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 Miranda and more recently Dr. Sharma at [facility] who presents to the ED for evaluation after having a witnessed seizure at work earlier today. Patient states that she received a flu shot earlier in the afternoon at 15:00 and then went to work. At approximately 16:45 patient said she felt dizzy, her vision started to go ?blank?, she felt like she could not move, and her eye started to tear up. Patient then had a witnessed seizure at work. Patient's was there and held her head to prevent her hitting the floor. Patient reports that this seizure was a particularly ?strong one . Patient was also incontinent of urine and had mild suprapubic pain particularly noticeable when she lays on her side; patient says this is new and she has never experienced incontinence or this kind of pain before. Reports she has been taking all of her medications as prescribed without missing any doses. Also notes her she had a seizure 8 days prior on 07/22/2023. Last seizure prior to that was in February 2023 when she was admitted here and had a normal EEG. CT brain last month was normal. Patient states she has been on her same medications and doses during this period of time. Valproate level 65.9. Review of Systems 2 Review of Systems: Witnessed seizure w/incontinence of urine Headache Mild suprapubic pain, especially with laying on side Denies numbness or tingling in extremities No fever, chills, nausea, vomiting, diarrhea Denies chest pain/pressure, palpitations No shortness of breath PMFSH Past Medical History Medical History Chronic allergic rhinitis Otitis media Hypoxia Viral pneumonia Infection due to human metapneumovirus (hMPV) Diabetes mellitus Epilepsy Surgical History Surgical History Hx of cholecystectomy Social History Social History Household Members: Spouse and Children Housing: Apartment Do you presently have visiting nurse or other home services: No Alcohol intake: never Patient Tobacco Use Status: Never used Tobacco service: No Current occupational status: employed Meds Allergies Allergy/AdvReac Type Severity Reaction Status Date / Time Iodinated Contrast Media Allergy Intermediate Facial Verified 07/23/23 13:50 Swelling clindamycin [CLINDAMYCIN] Allergy Unknown ANAPHYLAXIS Verified 07/23/23 13:50 Active Medications: Current Medications Acetaminophen (Acetaminophen 325 Mg Tablet) 650 mg PO Q6H PRN PRN Reason: Pain, Mild (Pain Scale 1-3) Albuterol Sulfate (Albuterol Sulfate 90 Mcg 8 Gm Inhaler) 2 puff INHALE Q4H PRN PRN Reason: Shortness Of Breath Dextrose (Dextrose 50 % 25 Gm/50 Ml Syringe) 25 gm IVPUSH Q15M PRN; Protocol PRN Reason: per Hypoglycemia Standing Ord. Divalproex Sodium (Divalproex Sodium Er 250 Mg Tab.Er.24h) 250 mg PO BEDTIME [facility] Last Admin: 07/30/23 22:08 Dose: 250 mg Divalproex Sodium (Divalproex Sodium Er 500 Mg Tab.Er.24h) 500 mg PO BID [facility] Last Admin: 07/31/23 09:37 Dose: 500 mg Divalproex Sodium (Divalproex Sodium 250 Mg Tablet.Dr) 250 mg PO DAILY [facility] Last Admin: 07/31/23 09:37 Dose: 250 mg Docusate Sodium (Docusate Sodium 100 Mg Capsule) 100 mg PO DAILY PRN PRN Reason: Constipation Enoxaparin Sodium (Enoxaparin Sodium 40 Mg/0.4 Ml Syringe) 40 mg SUBCUT Q24H [facility] Last Admin: 07/30/23 22:17 Dose: 40 mg Famotidine (Famotidine 20 Mg Tablet) 20 mg PO BID [facility] Last Admin: 07/31/23 09:37 Dose: 20 mg Fluticasone/Vilanterol (Fluticasone/Vilanterol 200/25 Blst.W.Dev) 1 puff INHALE DAILY [facility] Last Admin: 07/31/23 08:16 Dose: Not Given Glucose (Glucose Gel 15 Gm Gel..Gram.) 15 gm PO Q15M PRN; Protocol PRN Reason: per Hypoglycemia Standing Ord. Insulin Human Lispro (Insulin Lispro 100 Unit/Ml 3 Ml Vial) 0 unit SUBCUT QIDACHS [facility]; Protocol Last Admin: 07/31/23 09:36 Dose: Not Given Loratadine (Loratadine 10 Mg Tablet) 10 mg PO DAILY [facility] Last Admin: 07/31/23 09:37 Dose: 10 mg Lorazepam (Lorazepam 2 Mg/Ml Vial) 1 mg IVPUSH Q4H PRN PRN Reason: Seizures Ondansetron HCl (Ondansetron Hcl 4 Mg/2 Ml Vial) 4 mg IVPUSH Q8H PRN PRN Reason: Nausea and Vomiting Sodium Chloride (0.9 % Sodium Chloride Flush 3 Ml Syringe) 3 ml IVFLUSH QSHIFT [facility] Last Admin: 07/31/23 09:37 Dose: 3 ml Home Medications Medication Instructions Recorded Confirmed Last Taken Type divalproex 500 mg tablet,extended 1 tab PO BID 12/29/22 07/30/23 07/30/23 History release 24 hr albuterol sulfate 90 mcg/actuation 2 puff inhalation Q4-6H PRN 07/30/23 07/30/23 Unknown History aerosol inhaler (Ventolin HFA) Shortness Of Breath divalproex 250 mg tablet,delayed 250 mg PO DAILY 07/30/23 07/30/23 07/30/23 History release famotidine 20 mg tablet 20 mg PO BID 07/30/23 07/30/23 07/30/23 History loratadine 10 mg tablet 10 mg PO DAILY 07/30/23 07/30/23 Unknown History metformin 500 mg tablet 500 mg PO BIDWM 07/30/23 07/30/23 07/30/23 History Physical Exam 2 Vital Signs: Vital Signs: Last Vital Signs Temp 98.2 F 07/31/23 07:51 Pulse 66 07/31/23 07:51 Resp 16 07/31/23 07:51 BP 112/77 07/31/23 07:51 Pulse Ox 95 07/31/23 07:51 O2 Del Method Room Air 07/31/23 07:51 BMI result Body Mass Index 33.2 Neuro: Other: Normal , non focal neuro exam Results Labs 07/30/23 18:31 07/30/23 19:01 Labs: Short CBC 07/30/23 Range/Units 18:31 WBC 6.8 (4.8-10.8) X10*3/uL Hgb 11.7 L (12.0-16.0) g/dl Hct 34.9 L (37.0-47.0) % Plt Count 262 (160-400) X10*3/uL BMP 07/30/23 07/30/23 18:31 19:01 Sodium 143 142 Potassium 4.1 3.5 Chloride 104 105 Carbon Dioxide 26 26 BUN 11 10 Creatinine 0.61 0.56 Calcium 10.0 9.1 D Liver Function 07/30/23 Range/Units 18:31 Total Bilirubin 0.4 (0.0-1.0) mg/dL AST 47 H (5-31) U/L ALT 55 H (0-31) U/L Alkaline Phosphatase 51 (39-117) U/L Albumin 4.1 (3.5-5.0) g/dL Urine 07/30/23 Range/Units 19:01 Urine Color Yellow Urine Appearance Clear Urine pH 6.0 (5.0-9.0) Ur Specific [place] 1.020 (1.005-1.025) Urine Protein Negative (Neg-Trace) mg/dL Urine Glucose (UA) Negative (Negative) mg/dL Assessment and Plan (1) Breakthrough seizure: Status: Acute Either a breakthrough seizure or a pseudoseizure related to her flu shot. ( She also has pseudoSz. ) Recom.: increase Depakote by 250mg a day to bring her in the high therapeutic levels. Repeat EEG. Can be discharged after EEG to f[place] [facility] Pt is a 32-year-old female with a PMH significant for?moderate persistent asthma, non-insulin diabetes type 2, 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 Sharma at [facility] who presents to the ED for evaluation after having a witnessed seizure at work earlier today. Pt will be admitted to the hospital under observation on telemetry for evaluation and monitoring of breakthrough seizure. Breakthrough seizure Patient experienced witnessed seizure this afternoon, had additional seizure 8 days prior on 07/22/2023 Pt normally on a split dosing: Divalproex 750 mg a.m. and 500 mg p.m. Pt reports medication compliance, valproic acid therapeutic at 65.[address] Keith at [facility] Will give any additional 250 mg tonight, Lorazepam p.r.n. for seizure activity Seizure precautions Neurology consult Monitor on telemetry [id number] diabetes type 2 Hold metformin Sliding-scale insulin Diabetic diet Moderate persistent asthma Not in acute exacerbation Continue home inhalers Full Code Attending:?Dr. Man DVT Prophylaxis: Lukex Patient will be admitted to the hospital under observation on telemetry for evaluation monitoring breakthrough seizure. Time Spent With Patient Time: Total time managing care of this patient today ____ minutes. Procedures Date of Service Date of Service: 07/31/23
--- NOTE | 2023-07-31 10:49 | MHC.CM.PN ---
Addendum entered by Krystle Napier 07/31/23 14:17: DP: PT HAS BEEN MEDICALLY CLEARED FOR DC HOME, NO SERVICES. PT HAS OWN RIDE HOME. Original Note: [employer] DELIVERED PT LIVES WITH SPOUSE. 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 + THRIVE ASSESSMENT, RESOURCE GUIDE GIVEN. NO COVID VAX NO HCP BUT WILLING TO COMPLETE. PCP DR. CONDON AT [facility]. DP: HOME, NO SERVICES ANTICIPATED. PT HAS OWN RIDE HOME. CM WILL CONTINUE TO FOLLOW FOR ANY CHANGE IN DC PLAN/NEEDS.
[2023-07-31 11:21] LABS: Glucose, Whole Blood 158 mg/dL (60-115)
[2023-07-31 11:48] VITALS: BP 107/67; PULSE 72; RESP 18; TEMP 36.8; O2SAT 96
[2023-07-31] MEDS: Insulin Lispro 100 UNIT/ML 3 ML VIAL SUBCUT (11:50)
--- NOTE | 2023-07-31 14:06 | P.DS_ITS ---
DS: Providers Provider Date of Service: 07/31/23 Date of admission: 07/30/23 22:32 Date of discharge: 07/31/23 Primary care physician: Kath Carey MD Consults: 07/30/23 21:26 Consult to Neurology Routine Consulting Provider: [facility] Reason for consultation: Breakthrough seizure, 2nd one in 8 days; on divalproex DS: Diagnosis Discharge Diagnosis (1) Breakthrough seizure: Status: Acute DS: Summary Hospital Course Hospital Course: 32-year-old female with a PMH significant for?moderate persistent asthma, non- insulin diabetes type 2, 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 Sharma at [facility] who presents to the ED for evaluation after having a witnessed seizure at work earlier today. Pt will be admitted to the hospital under observation on telemetry for evaluation and monitoring of breakthrough seizure. Hospital course: Patient admitted for possible breakthrough seizure or a pseudoseizure related to her flu shot. Patient was admitted overnight for observation-no new seizure events. Seen by Neurology: Patient Depakote adjusted to 750 b.i.d. EEG done (seems fine)patient is to follow up outpatient with Dr. Keith [facility]- for eeg follow-up and further management. Above management discussed the patient and her in detail length , they both understand and in agreement the above. Assessment and plan coordination time spent 50 minute. Time Spent with Patient Time attestation: Total time managing care of this patient today ____ minutes. Discharge coordination time: Greater than 30 minutes Quality: Safe Use of Opioids Does Pt have an Active Cancer Diagnosis on the Problem List?: No Quality: Stroke Does the patient have a stroke diagnosis?: No Physical Exam Vital Signs: Vital Signs: Last Vital Signs Temp 98.3 F 07/31/23 11:48 Pulse 72 07/31/23 11:48 Resp 18 07/31/23 11:48 BP 107/67 07/31/23 11:48 Pulse Ox 96 07/31/23 11:48 O2 Del Method Room Air 07/31/23 11:48 BMI result Body Mass Index 33.2 Appearance: Alert.? Oriented X3.? not in distress.? cvs: rrr, [id number] , no murmur res: clear to auscultation ,no rhonchii or wheezing abd: no rebound or guarding ,nt, bs present. ext pulses present , no cyanosis. neuro: axo3 , nonfocal. DS: Data Data Completed and Pending Labs on day of discharge: Laboratory Results - last 24 hr 07/30/23 07/30/23 07/30/23 18:31 18:59 19:01 WBC 6.8 RBC 3.49 L Hgb 11.7 L Hct 34.9 L MCV 100.0 H MCH 33.5 H MCHC 33.5 RDW 13.5 Plt Count 262 MPV 11.2 Immature Gran % (Auto) 0.3 Neut % (Auto) 50.1 Lymph % (Auto) 42.7 H Hunt % (Auto) 6.3 Eos % (Auto) 0.3 Baso % (Auto) 0.3 Lymph # (Auto) 2.9 Hunt # (Auto) 0.4 Eos # (Auto) 0.0 Baso # (Auto) 0.0 Abs Immat Gran (auto) 0.02 Absolute Neuts (auto) 3.4 Absolute Nucleated RBC 0.000 Nucleated RBC % (auto) 0.0 Sodium 143 142 Potassium 4.1 3.5 Chloride 104 105 Carbon Dioxide 26 26 Anion Gap 17 15 BUN 11 10 Creatinine 0.61 0.56 Estim Creat Clear Calc 122.7 133.5 Estimated GFR > 60 > 60 POC Glucose Random Glucose 100 96 Calcium 10.0 9.1 D Total Bilirubin 0.4 AST 47 H ALT 55 H Alkaline Phosphatase 51 Total Protein 7.3 Albumin 4.1 Lipase 27 Urine Color Yellow Urine Appearance Clear Urine pH 6.0 Ur Specific [place] 1.020 Urine Protein Negative Urine Glucose (UA) Negative Urine Ketones Trace Urine Blood Negative Urine Nitrite Negative Ur Leukocyte Esterase Trace H Urine RBC 0-2 Urine WBC 0-5 Ur Squamous Epith Cells 3-5 Urine Bacteria Trace Hyaline Casts 0-2 Urine Test NEGATIVE Urine Opiates Screen Not Detected Urine Fentanyl Screen Not Detected Ur Barbiturates Screen Not Detected Valproic Acid Ur Phencyclidine Scrn Not Detected Ur Amphetamines Screen Not Detected U Benzodiazepines Scrn Not Detected Urine Cocaine Screen Not Detected U Marijuana (THC) Screen Not Detected 07/30/23 07/31/23 07/31/23 20:57 07:42 11:12 WBC RBC Hgb Hct MCV MCH MCHC RDW Plt Count MPV Immature Gran % (Auto) Neut % (Auto) Lymph % (Auto) Hunt % (Auto) Eos % (Auto) Baso % (Auto) Lymph # (Auto) Hunt # (Auto) Eos # (Auto) Baso # (Auto) Abs Immat Gran (auto) Absolute Neuts (auto) Absolute Nucleated RBC Nucleated RBC % (auto) Sodium Potassium Chloride Carbon Dioxide Anion Gap BUN Creatinine Estim Creat Clear Calc Estimated GFR POC Glucose 85 158 H Random Glucose Calcium Total Bilirubin AST ALT Alkaline Phosphatase Total Protein Albumin Lipase Urine Color Urine Appearance Urine pH Ur Specific [place] Urine Protein Urine Glucose (UA) Urine Ketones Urine Blood Urine Nitrite Ur Leukocyte Esterase Urine RBC Urine WBC Ur Squamous Epith Cells Urine Bacteria Hyaline Casts Urine Test Urine Opiates Screen Urine Fentanyl Screen Ur Barbiturates Screen Valproic Acid 65.9 Ur Phencyclidine Scrn Ur Amphetamines Screen U Benzodiazepines Scrn Urine Cocaine Screen U Marijuana (THC) Screen Discharge Plan Discharge Anticipated Discharge Date/Time: 07/31/23 13:57 Patient Disposition: Home, Self-Care Discharge Diagnosis: breakthrough seizures Referrals: Kath Venegas MD [Primary Care Provider] - 1 Week Discharge Medications: New divalproex 250 mg Tablet Extended Release 24 Hr 250 mg PO BEDTIME Qty: 30 0RF Continued divalproex 500 mg tablet extended release 24 hr 1 tab PO BID ondansetron 4 mg tablet,disintegrating 4 mg PO Q8H PRN (Reason: nausea and vomiting) Qty: 20 0RF metformin 500 mg tablet 500 mg PO BIDWM famotidine 20 mg tablet 20 mg PO BID albuterol sulfate [Ventolin HFA] 90 mcg/actuation HFA aerosol inhaler 2 puff INHALATION Q4-6H PRN (Reason: Shortness Of Breath) loratadine 10 mg tablet 10 mg PO DAILY divalproex 250 mg tablet,delayed release (DR/EC) 250 mg PO DAILY budesonide-formoterol [Symbicort] 160-4.5 mcg/actuation HFA aerosol inhaler 2 puff inhalation BID 30 Days Qty: 10.2 11RF Discharge Orders: Discharge Order (Routine); Ordered 07/31/23 Ordered By: Lukas Santoyo Diet: Advance to usual diet Activity on Discharge: As tolerated Stand Alone Forms: Patient Portal Discharge page, Work/School Release Care Plan Goals: Patient admitted for possible breakthrough seizure or a pseudoseizure related to her flu shot. Patient was admitted overnight for observation-no new seizure events. Seen by Neurology: Patient Depakote adjusted to 750 b.i.d. ,in addition EEG done patient is to follow up outpatient with Dr. Keith [facility]-for eeg follow-up and further management. Health Concerns: As above. Plan of Treatment: As above. Assessment: As above. Discharge Date/Time: 07/31/23 17:08
[2023-07-31 15:22] VITALS: BP 118/56; PULSE 86; RESP 16; TEMP 36.3; O2SAT 96
== END 2023-07-31 17:08 | disposition home or self-care (01) ==
LOC: HO.ED 20:21 → HO.EDOVER 22:33 → HO.IMC 07-31 00:32
PROVIDERS: Admitting Provider Student in an Organized Health Care Education/Training Program; Emergency Provider Emergency Medicine; PCP Internal Medicine; Visit Provider Internal Medicine
DX: G40.909 Epilepsy, unspecified, not intractable, without status epilepticus (principal); E11.9 Type 2 diabetes mellitus without complications; J30.9 Allergic rhinitis, unspecified; J45.40 Moderate persistent asthma, uncomplicated
CPT/HCPCS: 36415; 80048; 80053; 80164; 80307; 81001; 81025; 82947; 83690; 85025; 93005; 95816; 96360; 96361; 96372; 99222; 99285; J1650

== ENCOUNTER → 2023-07-30 22:32 | Outpatient (BNV) | payer MEDICAID, SELFPAY | PROVIDERS: Admitting Provider Student in an Organized Health Care Education/Training Program; Emergency Provider Emergency Medicine; PCP Internal Medicine; Visit Provider Student in an Organized Health Care Education/Training Program | DX: G40.919 Epilepsy, unspecified, intractable, without status epilepticus (principal) | CPT/HCPCS: 99222; 99239 ==

== ENCOUNTER 2023-08-27 18:31 | Outpatient (REF) | payer MEDICAID, SELFPAY ==
[2023-08-28 03:15] LABS: CT PCR NOT DETECTED (Not Detect.); NG PCR NOT DETECTED (Not Detect.)
[2023-08-28 11:54] LABS: BV Int Neg Control Negative (Negative); BV Int Pos Control Positive (Positive)
== END 2023-08-27 18:32 | disposition home or self-care (01) ==
LOC: HO.HHCLNP 18:31
PROVIDERS: Visit Provider Advanced Practice Midwife
DX: Z11.3 Encounter for screening for infections with a predominantly sexual mode of transmission (principal)
CPT/HCPCS: 0353U; 87480; 87510; 87660

== ENCOUNTER 2023-08-31 09:26 | Emergency (ER) | payer MEDICAID, SELFPAY ==
--- NOTE | ~2023-08-31 | XR_ITS ---
EXAMINATION: XR CHEST CLINICAL INFORMATION: Cough and SOB. COMPARISON: Chest x-ray 04/14/2023. TECHNIQUE: 2 views of the chest were obtained. FINDINGS: No significant abnormality is noted involving the heart, lungs, mediastinum, bony thorax or soft tissues. XR/XR chest 2V IMPRESSION: Unremarkable chest examination.
[2023-08-31 09:33] VITALS: BP 134/58; PULSE 78; RESP 16; TEMP 35.7; O2SAT 98; BMI 30.8
[2023-08-31 09:56] VITALS: BP 113/61; PULSE 79; RESP 16; TEMP 37.1; O2SAT 98
--- NOTE | 2023-08-31 10:04 | PC.NURSE ---
vss and up to date. pt comes in today d/t flu-like sx that began last week. pt verbalizing n/v/d/sore throat/fever/cough. pt verbalizes taking otc medication w/o relief. pt states she was also tested for covid/flu and they both came back negative. pt awaiting to be seen by provider.
--- NOTE | 2023-08-31 10:17 | ED_ITS ---
HPI - URI/Sore Throat General Chief Complaint: Upper Respiratory Symptoms Stated Complaint: Laryngitis Sore Throat Time Seen by Provider: 08/31/23 09:43 Source: patient Mode of arrival: ambulatory Limitations: no limitations History of Present Illness HPI Narrative: patient is a 32-year-old female who presents emergency department for evaluation upper respiratory symptoms. She reports 1 week with initial hoarse ness now losing her voice, sore throat, intermittently productive cough. She states she went to urgent care at the onset of her symptoms, had swabs done which were negative, and was advised conservative treatment. She reports increase in cough over the past few days, blood-tinged sputum, and a single episode of vomiting yesterday. Denies fevers, chills, headache, dizziness, lightheadedness, neck pain, chest pain, shortness of breath, difficulty breathing, persistent nausea, abdominal pain, constipation, diarrhea Related Data Home Medications Medication Instructions Recorded Confirmed divalproex 500 mg tablet,extended 1 tab PO BID 12/29/22 07/30/23 release 24 hr albuterol sulfate 90 mcg/actuation 2 puff inhalation Q4-6H PRN 07/30/23 07/30/23 aerosol inhaler (Ventolin HFA) Shortness Of Breath divalproex 250 mg tablet,delayed 250 mg PO DAILY 07/30/23 07/30/23 release famotidine 20 mg tablet 20 mg PO BID 07/30/23 07/30/23 loratadine 10 mg tablet 10 mg PO DAILY 07/30/23 07/30/23 metformin 500 mg tablet 500 mg PO BIDWM 07/30/23 07/30/23 Previous Rx's Medication Instructions Recorded budesonide-formoterol HFA 160 2 puff inhalation BID 30 days 07/23/23 mcg-4.5 mcg/actuation aerosol #10.2 grams inhaler (Symbicort) ondansetron 4 mg disintegrating 4 mg PO Q8H PRN nausea and 07/23/23 tablet vomiting #20 tabs divalproex 250 mg tablet,extended 250 mg PO BEDTIME #30 tabs 07/31/23 release 24 hr amoxicillin 500 mg capsule 500 mg PO BID 10 days #20 caps 08/31/23 Allergies Allergy/AdvReac Type Severity Reaction Status Date / Time Iodinated Contrast Media Allergy Intermediate Facial Verified 08/31/23 09:36 Swelling clindamycin [CLINDAMYCIN] Allergy Unknown ANAPHYLAXIS Verified 08/31/23 09:36 Review of Systems Review of Systems: Yes all other systems are reviewed and are negative [facility] Past Medical History Attestation statement: The following information was validated with the patient. Source: old records reviewed Medical History Chronic allergic rhinitis Otitis media Hypoxia Viral pneumonia Infection due to human metapneumovirus (hMPV) Diabetes mellitus Epilepsy Surgical History Hx of cholecystectomy Social History Social History Household Members: Spouse and Children Housing: Apartment Do you presently have visiting nurse or other home services: No Alcohol intake: never Patient Tobacco Use Status: Never used Tobacco Advance Directives: No Advance Directives Information Provided: No service: No Current occupational status: employed Physical Exam Vital Signs: Vital Signs: Last Vital Signs Temp 98.7 F 08/31/23 09:56 Pulse 79 08/31/23 09:56 Resp 16 08/31/23 09:56 BP 113/61 08/31/23 09:56 Pulse Ox 98 08/31/23 09:56 O2 Del Method Room Air 08/31/23 09:56 BMI result Body Mass Index 30.8 Appearance: Alert.?Oriented to person, place and time. No acute distress.?Normal affect. Eyes: Pupils equal, round and reactive to light.? ENT: TM normal bilaterally. Pharynx mildly erythematous, with white/ yellow exudate, no hypertrophy, uvula midline, no trismus, no Drooling.?? Neck: Normal inspection.? Neck supple.??No cervical adenopathy CVS: Heart sounds normal. Normal heart rate and rhythm.? Pulses normal.?? Respiratory: No respiratory distress.? Lung sounds clear to auscultation bilaterally?? Abdomen: Soft and non-tender. Normoactive bowel sounds. Skin: Skin warm and dry.? Normal skin color.? ? Extremities: No lower extremity edema.? Neuro: Moves all extremities spontaneously. Sensation intact bilaterally. No motor deficits. Ambulates with normal steady gait. Medical Decision Making Medical Decision Making MDM Narrative: Patient is a 32-year-old female, presenting for evaluation of upper respiratory symptoms. COVID-19 testing Negative. Influenza testing negative. RSV testing negative. strep a testing negative. chest x-ray is without any acute cardiopulmonary process, No evidence of pneumonia. examination is consistent with laryngitis; Advised management with hydration, humidifier, focal rest. examination not consistent peritonsillar or retropharyngeal abscess, given duration of symptoms an associated sore throat, will treat with course of amoxicillin, patient advised that symptoms of laryngitis can last for 2-3 weeks. Well-appearing, nontoxic, afebrile, no tachycardia or tachypnea/hypoxia. ambulatory with steady gait. Discussed conservative treatment including rest, hydration, Tylenol/ibuprofen as needed for fever and body aches, saline nasal spray, humidifier, [id number] cold medication. Advised to follow-up with primary care provider as needed, [facility] All questions were answered. Patient discharged home in stable condition. Provided with a return to work note. Differential Diagnosis Differential Diagnoses: The differential diagnosis associated with the presentation includes ( As noted above) Lab Data MDM Lab Attestation statement: I reviewed the patient's lab results. ( as noted above) Labs: Lab Results 08/31/23 Range/Units 10:35 Influenza Type A (PCR) NEGATIVE (Negative) Influenza Type B (PCR) NEGATIVE (Negative) RSV RNA Qual (PCR) NEGATIVE (Negative) SARS-CoV-2 RNA (RT-PCR) NEGATIVE (Negative) S. pyogenes GrpA YIN Negative (Negative) Independent Interpretation I performed an independent interpretation of an: Plain X-Ray ( I personally Interpreted chest x-ray and agree with radiologist impression.) Radiology Impression Discussion of test interpretation with radiology: I have reviewed the radio logist's reading. Radiologist Impression: XR/XR chest 2V IMPRESSION: Unremarkable chest examination. External Record Review External record reviewed: Outpatient record and Prior outpatient labs Prescription Management I considered prescription management with: Antibiotic Discharge Plan Discharge Clinical Impression: Laryngitis Patient Disposition: Home, Self-Care Instructions: Laryngitis (ED) Additional Instructions: as discussed, your testing for COVID- 19, influenza, and RSV today were negative. Your strep testing was also negative. Given how long you have had symptoms for, of loss of your voice, injury or sore throat I have sent a prescription for amoxicillin to your pharmacy. Please complete this entire course. Laryngitis can last for 2-3 weeks in some people. If you do not have improvement after the course of antibiotics please follow-up with your primary care provider. You may return back to the emergency department any new or worsening symptoms or concerns. Prescriptions: New amoxicillin 500 mg capsule 500 mg PO BID 10 Days Qty: 20 0RF No Action divalproex 500 mg tablet extended release 24 hr 1 tab PO BID ondansetron 4 mg tablet,disintegrating 4 mg PO Q8H PRN (Reason: nausea and vomiting) Qty: 20 0RF metformin 500 mg tablet 500 mg PO BIDWM famotidine 20 mg tablet 20 mg PO BID albuterol sulfate [Ventolin HFA] 90 mcg/actuation HFA aerosol inhaler 2 puff INHALATION Q4-6H PRN (Reason: Shortness Of Breath) loratadine 10 mg tablet 10 mg PO DAILY divalproex 250 mg tablet,delayed release (DR/EC) 250 mg PO DAILY divalproex 250 mg Tablet Extended Release 24 Hr 250 mg PO BEDTIME Qty: 30 0RF budesonide-formoterol [Symbicort] 160-4.5 mcg/actuation HFA aerosol inhaler 2 puff inhalation BID 30 Days Qty: 10.2 11RF Referrals: Kath Venegas MD [Primary Care Provider] -
--- NOTE | 2023-08-31 10:39 | PC.NURSE ---
swabs obtained and sent to lab.
[2023-08-31 10:56] LABS: IDNOW Serial# 08D9AD1C; Strep A Nucleic Acid Negative (Negative)
[2023-08-31 11:30] LABS: Influenza A PCR NEGATIVE (Negative); Influenza B PCR NEGATIVE (Negative); Resp Syncy Virus RNA Qual PCR NEGATIVE (Negative); SARS COV2 PCR INHOUSE NEGATIVE (Negative)
== END 2023-08-31 12:17 | disposition home or self-care (01) ==
PROVIDERS: Emergency Provider Emergency Medicine; PCP Internal Medicine
DX: J04.0 Acute laryngitis (principal); J02.9 Acute pharyngitis, unspecified; R11.2 Nausea with vomiting, unspecified; Z20.822 Contact with and (suspected) exposure to COVID-19; Z20.828 Contact with and (suspected) exposure to other viral communicable diseases; Z79.899 Other long term (current) drug therapy
CPT/HCPCS: 0241U; 71046; 87651; 99283

== ENCOUNTER 2023-10-03 11:35 | Outpatient (REF) | payer MEDICAID, SELFPAY ==
[2023-10-04 13:34] LABS: Influenza A PCR NEGATIVE (Negative); Influenza B PCR NEGATIVE (Negative); Resp Syncy Virus RNA Qual PCR NEGATIVE (Negative); SARS COV2 PCR INHOUSE NEGATIVE (Negative)
== END 2023-10-03 11:36 | disposition home or self-care (01) ==
LOC: HO.LNP 11:35
PROVIDERS: Visit Provider Emergency Medicine
DX: J02.9 Acute pharyngitis, unspecified (principal); Z11.52 Encounter for screening for COVID-19
CPT/HCPCS: 0241U; 87070

== ENCOUNTER 2023-10-05 21:38 | Emergency (ER) | payer MEDICAID, SELFPAY ==
[2023-10-05 22:10] VITALS: BP 140/59; PULSE 89; RESP 18; TEMP 36.3; O2SAT 97; BMI 33.4
[2023-10-05 23:05] LABS: Influenza A PCR NEGATIVE (Negative); Influenza B PCR NEGATIVE (Negative); Resp Syncy Virus RNA Qual PCR NEGATIVE (Negative); SARS COV2 PCR INHOUSE NEGATIVE (Negative)
--- NOTE | 2023-10-05 23:56 | ED_ITS ---
HPI - Skin/Abscess/Foreign Bdy General Chief complaint: Skin/Abscess/Foreign Body Stated complaint: ?rash right leg Time Seen by Provider: 10/05/23 23:24 Source: patient and RN notes reviewed Mode of arrival: ambulatory Limitations: no limitations History of Present Illness HPI narrative: This is a 33-year-old female presenting to the emergency department with complaints of itchy, painful rash for the last 2 days. Patient reports that she noticed the rash to her right leg, believes that they are type of bite. She also reports that she has had a cough for the last week. No fevers or chills. Recently was exposed to COVID by her co-worker. No chest pain or shortness breath. No abdominal pain, nausea, vomiting diarrhea. No other complaints or concerns at this time. MD complaint: rash and insect bite/sting Tetanus up to date: unsure Relieving factors: none Exacerbating factors: none Context: none Associated symptoms: cough Treatments prior to arrival: none Related Data Home Medications Medication Instructions Recorded Confirmed divalproex 500 mg tablet,extended 1 tab PO BID 12/29/22 07/30/23 release 24 hr albuterol sulfate 90 mcg/actuation 2 puff inhalation Q4-6H PRN 07/30/23 07/30/23 aerosol inhaler (Ventolin HFA) Shortness Of Breath divalproex 250 mg tablet,delayed 250 mg PO DAILY 07/30/23 07/30/23 release famotidine 20 mg tablet 20 mg PO BID 07/30/23 07/30/23 loratadine 10 mg tablet 10 mg PO DAILY 07/30/23 07/30/23 metformin 500 mg tablet 500 mg PO BIDWM 07/30/23 07/30/23 Previous Rx's Medication Instructions Recorded budesonide-formoterol HFA 160 2 puff inhalation BID 30 days 07/23/23 mcg-4.5 mcg/actuation aerosol #10.2 grams inhaler (Symbicort) ondansetron 4 mg disintegrating 4 mg PO Q8H PRN nausea and 07/23/23 tablet vomiting #20 tabs divalproex 250 mg tablet,extended 250 mg PO BEDTIME #30 tabs 07/31/23 release 24 hr amoxicillin 500 mg capsule 500 mg PO BID 10 days #20 caps 08/31/23 benzonatate 200 mg capsule 200 mg PO TID PRN cough #9 caps 10/06/23 diphenhydramine HCl 25 mg tablet 25 mg PO TID PRN itching #14 tabs 10/06/23 (Benadryl Allergy) hydrocortisone 2.5 % topical cream 1 appl topical TID PRN itching #20 10/06/23 grams Allergies Allergy/AdvReac Type Severity Reaction Status Date / Time Iodinated Contrast Media Allergy Intermediate Facial Verified 10/05/23 22:09 Swelling clindamycin [CLINDAMYCIN] Allergy Unknown ANAPHYLAXIS Verified 10/05/23 22:09 Review of Systems 2 Review of Systems: Yes all other systems are reviewed and are negative Constitutional: Constitutional: Reports as per [facility] Past Medical History Attestation statement: The following information was validated with the patient. Medical History Chronic allergic rhinitis Otitis media Hypoxia Viral pneumonia Infection due to human metapneumovirus (hMPV) Diabetes mellitus Epilepsy Surgical History Hx of cholecystectomy Social History Social History Household Members: Spouse and Children Housing: Apartment Do you presently have visiting nurse or other home services: No Alcohol intake: never Patient Tobacco Use Status: Never used Tobacco Advance Directives: Yes Advance Directives on File: Yes Advance Directives Date on File: 08/17/23 service: No Current occupational status: employed Physical Exam 2 Vital Signs: Vital Signs: Last Vital Signs Temp 97.3 F 10/05/23 22:10 Pulse 89 10/05/23 22:10 Resp 18 10/05/23 22:10 BP 140/59 H 10/05/23 22:10 Pulse Ox 97 10/05/23 22:10 O2 Del Method Room Air 10/05/23 22:10 BMI result Body Mass Index 33.4 Const: General: cooperative, comfortable and no acute distress O rientation/consciousness: patient oriented x3 Limitations: no limitations HEENT: Head: Yes normal to inspection, Yes normocephalic and Yes atraumatic Ears: hearing grossly normal bilaterally and TM's normal bilaterally General nose exam: Normal external nose present Face and sinus: Yes normal facial exam Mouth: Normal oral and palatal mucosa present, oropharynx normal and moist mucous membranes Throat: Yes posterior oropharynx normal Eyes: General: appearance normal, both eyes and all related structures E yelids: Yes eyelids normal Conjunctivae: conjunctivae normal Sclerae: s clerae normal Pupils: Equal, round and reactive pupils present EOM: EOMs intact bilaterally Neck: Neck: Yes normal visual inspection, Yes full ROM and Yes no lymphadenopathy Lymphatic: no lymphadenopathy noted Chest: Chest palpation & inspection: normal inspection of the chest Resp: Effort & Inspection: normal respiratory effort and able to speak in complete sentences Auscultation: clear to auscultation bilaterally, no crackles, no rales, no rhonchi and no wheezes Cardio: Rate: regular rate Rhythm: regular rhythm Heart sounds: S1 normal heart sound present and S2 normal heart sound present GI: Inspection: Yes normal to inspection Skin: Other: Scattered, macular papular rash noted, appears to be linear and in clusters on the right leg. No surrounding erythema or warmth. Trauma: no lacerations or abrasions Wounds: no wounds Neuro: General: patient oriented x3 and moves all extremities Cranial nerves: Yes Equal, round and reactive pupils present Extrem: General: Yes normal to inspection Right upper extremity: normal to inspection Left upper extremity: normal to inspection Right lower extremity: normal to inspection Left lower extremity: normal to inspection Medical Decision Making Medical Decision Making [facility] Narrative: This is a 33-year-old female, with a history of seizures and diabetes presenting to the emergency department for evaluation of itchy rash to her right leg last 2 days. Patient also reports that she has had cough, congestion, and sneezing for the last several days. On arrival, vital signs within normal limits. Lungs are clear to auscultation bilaterally. Scattered macular papular rash noted to the right extremity in linear fashion, consistent with bedbugs. I discussed findings with patient reports that she does not believe that these are bedbugs, I explained to her that regardless of what had bit her they were all treated the same with topical corticosteroids, Benadryl. Also given dermatology referral. Also given Tessalon for cough. Encouraged to carefully watch area and to return with any new or worsening symptoms. Patient understands agrees with plan. Patient stable for discharge. Differential Diagnosis Differential Diagnoses: The differential diagnosis associated with the presentation includes Insect bites, bedbugs, scabies, contact dermatitis, folliculitis, cellulitis Lab Data [facility] Lab Attestation statement: I reviewed the patient's lab results. Negative COVID, flu, RSV Labs: Lab Results 10/05/23 Range/Units 22:19 Influenza Type A (PCR) NEGATIVE (Negative) Influenza Type B (PCR) NEGATIVE (Negative) RSV RNA Qual (PCR) NEGATIVE (Negative) SARS-CoV-2 RNA (RT-PCR) NEGATIVE (Negative) Discharge Plan Discharge Clinical Impression: Acute upper respiratory infection, Insect bite Patient Disposition: Home, Self-Care Instructions: Upper Respiratory Infection (ED) Additional Instructions: You presented to the emergency department due to an itchy rash. They are likely from an insect. I am prescribing a hydrocortisone and Benadryl to help with the itch. Only uses needed. Please call an long term care administrator as you likely will continue to get bites. You also tested negative for flu, rsv, and COVID today. On also prescribe a medication called Tessalon, this helps with the cough. Please drink plenty of fluids get plenty of rest. Follow-up with your primary care physician If any new or worsening symptoms occur including but not limited to chest pain, shortness breath, fevers, worsening rash, please return for re-evaluation. Please follow-up with Dermatology, call to make an appointment [facility] [address] [place] [address] [id number] Prescriptions: New benzonatate 200 mg capsule 200 mg PO TID PRN (Reason: cough) Qty: 9 0RF hydrocortisone 2.5 % cream 1 appl topical TID PRN (Reason: itching) Qty: 20 0RF diphenhydramine HCl [Benadryl Allergy] 25 mg tablet 25 mg PO TID PRN (Reason: itching) Qty: 14 0RF No Action divalproex 500 mg tablet extended release 24 hr 1 tab PO BID amoxicillin 500 mg capsule 500 mg PO BID 10 Days Qty: 20 0RF ondansetron 4 mg tablet,disintegrating 4 mg PO Q8H PRN (Reason: nausea and vomiting) Qty: 20 0RF metformin 500 mg tablet 500 mg PO BIDWM famotidine 20 mg tablet 20 mg PO BID albuterol sulfate [Ventolin HFA] 90 mcg/actuation HFA aerosol inhaler 2 puff INHALATION Q4-6H PRN (Reason: Shortness Of Breath) loratadine 10 mg tablet 10 mg PO DAILY divalproex 250 mg tablet,delayed release (DR/EC) 250 mg PO DAILY divalproex 250 mg Tablet Extended Release 24 Hr 250 mg PO BEDTIME Qty: 30 0RF budesonide-formoterol [Symbicort] 160-4.5 mcg/actuation HFA aerosol inhaler 2 puff inhalation BID 30 Days Qty: 10.2 11RF
== END 2023-10-06 00:59 | disposition home or self-care (01) ==
PROVIDERS: Emergency Provider Emergency Medicine
DX: J06.9 Acute upper respiratory infection, unspecified (principal); S90.561A Insect bite (nonvenomous), right ankle, initial encounter; W57.XXXA Bitten or stung by nonvenomous insect and other nonvenomous arthropods, initial encounter; Y93.9 Activity, unspecified; Y92.9 Unspecified place or not applicable; Y99.9 Unspecified external cause status; Z20.822 Contact with and (suspected) exposure to COVID-19; Z20.828 Contact with and (suspected) exposure to other viral communicable diseases
CPT/HCPCS: 0241U; 99283

== ENCOUNTER 2023-10-08 09:01 | Outpatient (REF) | payer MEDICAID, SELFPAY ==
[2023-10-08 12:23] LABS: Cholesterol 192 mg/dL (<200); HDL Cholesterol 32 mg/dL (>40); LDL Cholesterol Calculated 134 mg/dL (<100); Triglycerides 134 mg/dL (<150)
[2023-10-08 12:48] LABS: Creatinine Urine 377.21 mg/dL; Microalbum/Creatinine Ratio Ur 6.6 ug/mg cr (<30)
== END 2023-10-08 09:02 | disposition home or self-care (01) ==
LOC: HO.HHCL 09:01
PROVIDERS: Visit Provider Internal Medicine
DX: E11.65 Type 2 diabetes mellitus with hyperglycemia (principal)
CPT/HCPCS: 36415; 80061; 82043; 82570

== ENCOUNTER 2023-11-15 20:25 | Emergency (ER) | payer MEDICAID, SELFPAY ==
--- NOTE | ~2023-11-15 | CT_ITS ---
EXAMINATION: CT HEAD WITHOUT CONTRAST CLINICAL INFORMATION: Seizure. Fall. COMPARISON: 07/07/2023 TECHNIQUE: Contiguous axial imaging was performed from the skull base to vertex without intravenous administration of contrast. This CT examination was performed using dose optimization techniques as appropriate, variously including the following: *Automated exposure control *Adjustment of mA and/or kV according to patient size (this includes techniques or standardized protocols for targeted exams where dose is matched to indication/reason for exam; i.e. extremities or head) *Use of iterative reconstruction technique DLP: 607 mGy-cm FINDINGS: The lateral, third and fourth ventricles are normally outlined. The cortical sulci and basal cisterns are normally outlined as well. There is no acute territorial defect, hemorrhage or midline shift. The extra-axial spaces are unremarkable. Calvarium: Intact. Maxillofacial sinuses and mastoids: There is mucosal thickening of the ethmoid sphenoid and visualized maxillary sinuses. The mastoids are clear. CT/CT head/brain wo IV con IMPRESSION: No acute intracranial pathology.
[2023-11-15] MEDS: LORazepam 2 MG/ML VIAL IVPUSH (20:29)
--- NOTE | 2023-11-15 20:32 | ECG_ITS ---
Test Reason : SEIZURE Blood Pressure : / mmHG Vent. Rate : 095 BPM Atrial Rate : 095 BPM P-R Int : 132 ms QRS Dur : 082 ms QT Int : 336 ms P-R-T Axes : 056 053 039 degrees QTc Int : 422 ms Normal sinus rhythm Normal ECG When compared with ECG of 30-JUL-2023 18:36, No significant change was found Referred By: Lukas Castro Electronically Signed By:NETTIE BAER
--- NOTE | 2023-11-15 20:32 | ED.SEIZURE ---
HPI - Seizure General Chief Complaint: Seizure Stated Complaint: fell at home, hx of seixure Time Seen by Provider: 11/15/23 20:31 Source: patient Mode of arrival: ambulatory History of Present Illness HPI Narrative: Patient history of epilepsy and nonepileptic seizure, diabetes ,asthma on Depakote under increased stress with anxiety earlier patient felt dizzy lightheaded start shaking with right hand and fell down details not available patient after arrival complaining of mild headache patient does not remember much Seizure History: Yes Related Data Home Medications Medication Instructions Recorded Confirmed divalproex 500 mg tablet,extended 1 tab PO BID 12/29/22 07/30/23 release 24 hr albuterol sulfate 90 mcg/actuation 2 puff inhalation Q4-6H PRN 07/30/23 07/30/23 aerosol inhaler (Ventolin HFA) Shortness Of Breath divalproex 250 mg tablet,delayed 250 mg PO DAILY 07/30/23 07/30/23 release famotidine 20 mg tablet 20 mg PO BID 07/30/23 07/30/23 loratadine 10 mg tablet 10 mg PO DAILY 07/30/23 07/30/23 metformin 500 mg tablet 500 mg PO BIDWM 07/30/23 07/30/23 Previous Rx's Medication Instructions Recorded budesonide-formoterol HFA 160 2 puff inhalation BID 30 days 07/23/23 mcg-4.5 mcg/actuation aerosol #10.2 grams inhaler (Symbicort) ondansetron 4 mg disintegrating 4 mg PO Q8H PRN nausea and 07/23/23 tablet vomiting #20 tabs divalproex 250 mg tablet,extended 250 mg PO BEDTIME #30 tabs 07/31/23 release 24 hr amoxicillin 500 mg capsule 500 mg PO BID 10 days #20 caps 08/31/23 benzonatate 200 mg capsule 200 mg PO TID PRN cough #9 caps 10/06/23 diphenhydramine HCl 25 mg tablet 25 mg PO TID PRN itching #14 tabs 10/06/23 (Benadryl Allergy) hydrocortisone 2.5 % topical cream 1 appl topical TID PRN itching #20 10/06/23 grams Allergies Allergy/AdvReac Type Severity Reaction Status Date / Time Iodinated Contrast Media Allergy Intermediate Facial Verified 11/15/23 20:29 Swelling clindamycin [CLINDAMYCIN] Allergy Unknown ANAPHYLAXIS Verified 11/15/23 20:29 Review of Systems Review of Systems: Yes all other systems are reviewed and are negative PMFSH Past Medical History Onset Date is defined in the Problem List Problems that require an onset date and time if occurred within 24 hrs of arrival to the ED Aortic Dissection and Rupture; Neurologic impairment; Cardiopulmonary Arrest; Endotracheal Intubation; Insertion or Replacement of Mechanical Circulatory Assist Device Medical History Chronic allergic rhinitis Otitis media Hypoxia Viral pneumonia Infection due to human metapneumovirus (hMPV) Diabetes mellitus Epilepsy Surgical History Hx of cholecystectomy Social History Social History Household Members: Spouse and Children Housing: Apartment Do you presently have visiting nurse or other home services: No Alcohol intake: never Patient Tobacco Use Status: Never used Tobacco Advance Directives: Yes Advance Directives on File: Yes Advance Directives Date on File: 08/17/23 service: No Current occupational status: employed Physical Exam Vital Signs: Vital Signs: Last Vital Signs Temp 98.1 F 11/15/23 23:21 Pulse 84 11/15/23 23:21 Resp 18 11/15/23 23:21 BP 102/62 11/15/23 23:21 Pulse Ox 93 11/15/23 23:21 O2 Del Method Room Air 11/15/23 23:21 BMI result Body Mass Index 31.0 Appearance: Alert. Oriented X3. No acute distress. Sleepy Eyes: PERRLA, No Nystagmus ENT: Pharynx normal. Oral Mucosa moist AT NC no tongue bite Neck: Normal inspection. Neck supple. no midline tenderness CVS: Normal heart rate and rhythm. Pulses normal. Respiratory: No respiratory distress. Equal air entry bilateral, no wheezing/rales/rhonchi Abdomen: Soft and nontender. Bowel sounds are present, Skin: Skin warm and dry. Normal skin color. Normal skin turgor. Extremities: No lower extremity edema. No calf tenderness Neuro: Oriented X 3. No motor deficit. 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 ? Family came into the triage area stating the patient was ?having an epileptic attack. ? When I went to evaluate the patient, she was standing assisted by her brother. She was placed on a stretcher and began having tremors in her hands and right leg. She was given Ativan 2 mg IV, brought back to room 4, labs and EKG were ordered Medications Administered Discontinued Medications Generic Name Dose Route Start Last Admin Trade Name Freq PRN Reason Stop Dose Admin Lorazepam 2 mg 11/15/23 23:37 11/15/23 20:29 Lorazepam 2 Mg/Ml Vial IVPUSH 11/15/23 23:38 2 mg ONCE ONE Administration Medical Decision Making Medical Decision Making [facility] Narrative: Patient with epileptic/psychogenic seizures workup negative in the ER normal Depakote levels likely patient has increased anxiety patient advised to follow with neurologist CT scan of the head is negative for acute Differential Diagnosis Differential Diagnoses: The differential diagnosis associated with the presentation includes Psychogenic/epilepsy Admission/Observation Consideration of admission/observation: Escalation of care including admission/observation considered Lab Data [facility] Lab Attestation statement: I reviewed the patient's lab results. 11/15/23 20:39 11/15/23 21:00 Labs: Lab Results 11/15/23 11/15/23 Range/Units 20:39 21:00 WBC 9.0 (4.8-10.8) X10*3/uL RBC 3.80 L (4.20-5.50) X10*6/uL Hgb 12.5 (12.0-16.0) g/dl Hct 37.3 (37.0-47.0) % MCV 98.2 H (80.0-98.0) fL MCH 32.9 (27.0-33.0) pg MCHC 33.5 (31.0-35.0) g/dl RDW 13.2 (11.0-16.0) % Plt Count 260 (160-400) X10*3/uL MPV 11.1 (9.4-12.3) fL Immature Gran % (Auto) 0.3 (0.0-0.4) % Neut % (Auto) 44.1 L (45-73) % Lymph % (Auto) 45.4 H (20-40) % [place] % (Auto) 9.4 (2-11) % Eos % (Auto) 0.2 (0-4) % Baso % (Auto) 0.6 (0-2) % Lymph # (Auto) 4.1 (1.2-4.9) X10*3/uL [place] # (Auto) 0.9 (0.1-1.2) X10*3/uL Eos # (Auto) 0.0 (0.0-0.4) X10*3/uL Baso # (Auto) 0.1 (0.0-0.2) X10*3/uL Abs Immat Gran (auto) 0.03 (0.00-0.03) X10*3/uL Absolute Neuts (auto) 4.0 (2.0-8.3) x10*3/uL Absolute Nucleated RBC 0.000 (0.0-0.012) X10*3/uL Nucleated RBC % (auto) 0.0 (0.0-0.2) /100WBC PT 10.9 L (11.1-13.3) SEC INR 0.9 (0.9-1.1) Sodium 141 (135-145) mmol/L Potassium 4.2 (3.3-5.1) mmol/L Chloride 106 (96-108) mmol/L Carbon Dioxide 23 (22-29) mmol/L Anion Gap 16 (12-20) BUN 11 (9-16) mg/dL Creatinine 0.65 (0.5-1.4) mg/dL Estim Creat Clear Calc 123.9 Estimated GFR > 60 Random Glucose 144 H (60-115) mg/dL Calcium 8.6 (8.4-10.2) mg/dL Total Bilirubin 0.2 (0.0-1.0) mg/dL AST 39 H (5-31) U/L ALT 30 (0-31) U/L Alkaline Phosphatase 67 (39-117) U/L Total Protein 7.2 (6.5-8.0) g/dL Albumin 3.8 (3.5-5.0) g/dL Beta HCG, Quant < 2 mIU/mL Valproic Acid 84.0 (50.0-100.0) mcg/mL Independent Interpretation I performed an independent interpretation of an: EKG and CT Scan Interpretation: Normal sinus rhythm heart rate 95 beats per minute normal interval normal axis no acute ST T wave changes no acute ischemic Radiology Impression Discussion of test interpretation with radiology: I have reviewed the radiologist's reading. Discharge Plan Discharge Clinical Impression: Epileptic seizure Patient Disposition: Home, Self-Care Instructions: Epilepsy (ED) Additional Instructions: Continue taking medication for your anxiety and seizures Follow-up with your neurologist Prescriptions: No Action divalproex 500 mg tablet extended release 24 hr 1 tab PO BID amoxicillin 500 mg capsule 500 mg PO BID 10 Days Qty: 20 0RF ondansetron 4 mg tablet,disintegrating 4 mg PO Q8H PRN (Reason: nausea and vomiting) Qty: 20 0RF metformin 500 mg tablet 500 mg PO BIDWM famotidine 20 mg tablet 20 mg PO BID albuterol sulfate [Ventolin HFA] 90 mcg/actuation HFA aerosol inhaler 2 puff INHALATION Q4-6H PRN (Reason: Shortness Of Breath) loratadine 10 mg tablet 10 mg PO DAILY divalproex 250 mg tablet,delayed release (DR/EC) 250 mg PO DAILY divalproex 250 mg Tablet Extended Release 24 Hr 250 mg PO BEDTIME Qty: 30 0RF benzonatate 200 mg capsule 200 mg PO TID PRN (Reason: cough) Qty: 9 0RF hydrocortisone 2.5 % cream 1 appl topical TID PRN (Reason: itching) Qty: 20 0RF diphenhydramine HCl [Benadryl Allergy] 25 mg tablet 25 mg PO TID PRN (Reason: itching) Qty: 14 0RF budesonide-formoterol [Symbicort] 160-4.5 mcg/actuation HFA aerosol inhaler 2 puff inhalation BID 30 Days Qty: 10.2 11RF Interventions: ED Discharge Assessment Last Done: 11/16/23 01:41 Discharge Date/Time: 11/16/23 01:53
[2023-11-15 20:33] VITALS: BP 120/51; PULSE 101; RESP 20; O2SAT 95; BMI 31.0
[2023-11-15 20:44] LABS: MANUAL DIFF FLAG NO
[2023-11-15 20:45] VITALS: BP 128/64; PULSE 93; RESP 18; TEMP 36.7; O2SAT 96
[2023-11-15 20:45] LABS: Basophils Absolute Auto 0.1 X10*3/uL (0.0-0.2); Basophils Percent Auto 0.6 % (0-2); Eosinophils Percent Auto 0.2 % (0-4); Hematocrit 37.3 % (37.0-47.0); Hemoglobin 12.5 g/dl (12.0-16.0); Imm Gran Abs Auto 0.03 X10*3/uL (0.00-0.03); Imm Gran Pct Auto 0.3 % (0.0-0.4); Lymphocytes Absolute Auto 4.1 X10*3/uL (1.2-4.9); Lymphocytes Percent Auto 45.4 % (20-40); Mean Corpuscular HGB Conc 33.5 g/dl (31.0-35.0); Mean Corpuscular Hemoglobin 32.9 pg (27.0-33.0); Mean Corpuscular Volume 98.2 fL (80.0-98.0); Mean Platelet Volume 11.1 fL (9.4-12.3); Monocytes Absolute Auto 0.9 X10*3/uL (0.1-1.2); Monocytes Percent Auto 9.4 % (2-11); Neutrophils Percent Auto 44.1 % (45-73); Platelet Count 260 X10*3/uL (160-400); Red Cell Distribution Width 13.2 % (11.0-16.0)
[2023-11-15 21:05] LABS: INTERNATIONAL NORM RATIO 0.9 (0.9-1.1); Prothrombin Time 10.9 SEC (11.1-13.3)
[2023-11-15 21:18] LABS: Alanine Aminotransferase 30 U/L (0-31); Albumin Level 3.8 g/dL (3.5-5.0); Alkaline Phosphatase 67 U/L (39-117); Anion Gap 16 (12-20); Aspartate Amino Transferase 39 U/L (5-31); Bilirubin Total 0.2 mg/dL (0.0-1.0); Blood Urea Nitrogen 11 mg/dL (9-16); Calcium 8.6 mg/dL (8.4-10.2); Carbon Dioxide 23 mmol/L (22-29); Chloride 106 mmol/L (96-108); Creatinine Clr Calc Pharmacy 123.9; Estimated Glomerular Filt Rate > 60; Glucose Random 144 mg/dL (60-115); Potassium 4.2 mmol/L (3.3-5.1); Sodium 141 mmol/L (135-145); Total Protein 7.2 g/dL (6.5-8.0)
[2023-11-15 23:21] VITALS: BP 102/62; PULSE 84; RESP 18; TEMP 36.7; O2SAT 93
[2023-11-16 00:02] LABS: HCG Quantitative < 2 mIU/mL
== END 2023-11-16 01:53 | disposition home or self-care (01) ==
PROVIDERS: Physician Assistant; Emergency Provider Internal Medicine
DX: G40.909 Epilepsy, unspecified, not intractable, without status epilepticus (principal); R42 Dizziness and giddiness; F41.9 Anxiety disorder, unspecified; Z79.899 Other long term (current) drug therapy
CPT/HCPCS: 36415; 70450; 80053; 80164; 84702; 85025; 85610; 93005; 96374; 99284; J2060

== ENCOUNTER → 2023-11-15 20:32 | Outpatient (BNV) | payer MEDICAID, SELFPAY | PROVIDERS: Emergency Provider Internal Medicine; Visit Provider Internal Medicine | DX: R56.9 Unspecified convulsions (principal) | CPT/HCPCS: 93010 ==

== ENCOUNTER 2023-12-01 15:12 | Emergency (ER) | payer MEDICAID, SELFPAY ==
[2023-12-01 15:23] VITALS: BP 119/64; BP 133/76; PULSE 76; PULSE 88; RESP 20; TEMP 37; O2SAT 96; O2SAT 98; BMI 29.1
--- NOTE | 2023-12-01 16:10 | MHC.EDTECH ---
Patient used bedpan
[2023-12-01 16:11] LABS: Glucose, Whole Blood 96 mg/dL (60-115)
[2023-12-01 16:27] LABS: MANUAL DIFF FLAG NO
[2023-12-01 16:33] LABS: Basophils Percent Auto 0.5 % (0-2); Eosinophils Percent Auto 0.3 % (0-4); Hematocrit 34.4 % (37.0-47.0); Hemoglobin 11.6 g/dl (12.0-16.0); Imm Gran Abs Auto 0.01 X10*3/uL (0.00-0.03); Imm Gran Pct Auto 0.2 % (0.0-0.4); Lymphocytes Percent Auto 47.1 % (20-40); Mean Corpuscular HGB Conc 33.7 g/dl (31.0-35.0); Mean Corpuscular Hemoglobin 32.6 pg (27.0-33.0); Mean Corpuscular Volume 96.6 fL (80.0-98.0); Mean Platelet Volume 10.9 fL (9.4-12.3); Monocytes Absolute Auto 0.6 X10*3/uL (0.1-1.2); Monocytes Percent Auto 9.2 % (2-11); Neutrophils Absolute Auto 2.7 x10*3/uL (2.0-8.3); Neutrophils Percent Auto 42.7 % (45-73); Platelet Count 231 X10*3/uL (160-400); Red Blood Count 3.56 X10*6/uL (4.20-5.50); White Blood Count 6.3 X10*3/uL (4.8-10.8)
[2023-12-01 16:39] LABS: Anion Gap 13 (12-20); Blood Urea Nitrogen 7 mg/dL (9-16); Calcium 9.3 mg/dL (8.4-10.2); Carbon Dioxide 26 mmol/L (22-29); Chloride 104 mmol/L (96-108); Creatinine Clr Calc Pharmacy 142.1; Estimated Glomerular Filt Rate > 60; Glucose Random 98 mg/dL (60-115); Potassium 4.2 mmol/L (3.3-5.1); Sodium 139 mmol/L (135-145)
--- NOTE | 2023-12-01 16:41 | ED.SEIZURE ---
HPI - Seizure General Chief Complaint: Seizure Stated Complaint: pseudo seizures x3 today Time Seen by Provider: 12/01/23 16:40 Source: patient Mode of arrival: EMS Limitations: no limitations History of Present Illness HPI Narrative: 33-year-old female with a history of diabetes mellitus, asthma, seizure and pseudo-seizure who presents emergency department for possible seizure at home. The information came from the patient's daughter who witnessed the seizure. She states that the patient was eating at around 13:41 hours when her eyes started to blink rapidly, she then laid down on the couch and started shaking. The daughter states that the patient's hands and feet look like they were cramping the shaking activity lasted for approximately 30 minutes. Patient has had similar events in the past. Patient has been compliant with the medications and she states she was not ill in any way prior to the event. Daughter states the patient has been under increased stress since the patient is taking course and needs to study Seizure History: Yes Place: Home Related Data Home Medications Medication Instructions Recorded Confirmed divalproex 500 mg tablet,extended 1 tab PO BID 12/29/22 07/30/23 release 24 hr albuterol sulfate 90 mcg/actuation 2 puff inhalation Q4-6H PRN 07/30/23 07/30/23 aerosol inhaler (Ventolin HFA) Shortness Of Breath divalproex 250 mg tablet,delayed 250 mg PO DAILY 07/30/23 07/30/23 release famotidine 20 mg tablet 20 mg PO BID 07/30/23 07/30/23 loratadine 10 mg tablet 10 mg PO DAILY 07/30/23 07/30/23 metformin 500 mg tablet 500 mg PO BIDWM 07/30/23 07/30/23 Previous Rx's Medication Instructions Recorded budesonide-formoterol HFA 160 2 puff inhalation BID 30 days 07/23/23 mcg-4.5 mcg/actuation aerosol #10.2 grams inhaler (Symbicort) ondansetron 4 mg disintegrating 4 mg PO Q8H PRN nausea and 07/23/23 tablet vomiting #20 tabs divalproex 250 mg tablet,extended 250 mg PO BEDTIME #30 tabs 07/31/23 release 24 hr amoxicillin 500 mg capsule 500 mg PO BID 10 days #20 caps 08/31/23 benzonatate 200 mg capsule 200 mg PO TID PRN cough #9 caps 10/06/23 diphenhydramine HCl 25 mg tablet 25 mg PO TID PRN itching #14 tabs 10/06/23 (Benadryl Allergy) hydrocortisone 2.5 % topical cream 1 appl topical TID PRN itching #20 10/06/23 grams Allergies Allergy/AdvReac Type Severity Reaction Status Date / Time Iodinated Contrast Media Allergy Intermediate Facial Verified 11/15/23 20:29 Swelling clindamycin [CLINDAMYCIN] Allergy Unknown ANAPHYLAXIS Verified 11/15/23 20:29 Review of Systems Review of Systems: Yes all other systems are reviewed and are negative [facility] Past Medical History Medical History Chronic allergic rhinitis Otitis media Hypoxia Viral pneumonia Infection due to human metapneumovirus (hMPV) Diabetes mellitus Epilepsy Surgical History Hx of cholecystectomy Social History Social History Household Members: Spouse and Children Housing: Apartment Do you presently have visiting nurse or other home services: No Alcohol intake: current Alcohol intake frequency: holidays/special occasions only Patient Tobacco Use Status: Never used Tobacco Smoked in Last 30 Days: No Use of substances other than those prescribed or required for medical reasons: No Advance Directives: Yes Advance Directives on File: Yes Advance Directives Date on File: 08/17/23 Patient : No service: No Current occupational status: employed Physical Exam Vital Signs: Vital Signs: Last Vital Signs Temp 97.8 F 12/01/23 20:45 Pulse 83 12/01/23 20:45 Resp 16 12/01/23 20:45 BP 112/57 L 12/01/23 20:45 Pulse Ox 100 12/01/23 20:45 O2 Del Method Room Air 12/01/23 20:45 BMI result Body Mass Index 29.1 Vital signs were no Exam: General: Awake, alert in no distress Head: Normocephalic, atraumatic EENT: PERRL, Lids normal, sclera normal, conjunctiva normal, nose normal , ears normal, throat without erythema or exudates Neck: Supple, no adenopathy Lung: breath sounds symmetric, no wheezing, rales or rhonchi Chest: symmetric movement, nontender Heart: regular rate and rhythm, normal S1, S2 no murmurs or rubs Abdomen: soft, non-tender, nondistended, normal bowel sounds Back: no vertebral tenderness, no CVAT Extremities: no deformities, moves all extremities symmetrically Skin: no rashes, no lesion, normal color and warmth Neuro: Awake, alert, oriented, normal speech, cranial nerves intact, moves all extremities symmetrically Psych: Pleasant, cooperative Medications Administered Discontinued Medications Generic Name Dose Route Start Last Admin Trade Name Romi PRN Reason Stop Dose Admin Midazolam HCl 2 mg 12/01/23 17:26 12/01/23 18:12 Midazolam Hcl/Pf 2 Mg/2 Ml Vial IVPUSH 12/01/23 17:27 2 mg ONCE ONE Administration Medical Decision Making Medical Decision Making [facility] Narrative: 33-year-old female with a history of diabetes mellitus, asthma, seizure and pseudo-seizure who presents emergency department for possible seizure at home. The information came from the patient's daughter who witnessed the seizure. The daughter's description is more consistent with pseudoseizures then seizure. Physical examination was unremarkable. Differential diagnosis: Includes but is not limited to seizure, pseudo-seizure, electrolyte abnormality, anemia, anxiety 21:37 My interpretation patient's laboratory evaluation as follows: Normocytic anemia with an H&H of 11.6 and 34.4. BNP was otherwise normal. Valproic acid was 92.8 and is in the therapeutic range. Patient was given Versed 2 mg IV and feels significantly better. Patient was discharged home. Lab Data [facility] Lab Attestation statement: I reviewed the patient's lab results. 12/01/23 16:22 12/01/23 16:22 Labs: Lab Results 12/01/23 12/01/23 Range/Units 16:06 16:22 WBC 6.3 (4.8-10.8) X10*3/uL RBC 3.56 L (4.20-5.50) X10*6/uL Hgb 11.6 L (12.0-16.0) g/dl Hct 34.4 L (37.0-47.0) % MCV 96.6 (80.0-98.0) fL MCH 32.6 (27.0-33.0) pg MCHC 33.7 (31.0-35.0) g/dl RDW 13.0 (11.0-16.0) % Plt Count 231 (160-400) X10*3/uL MPV 10.9 (9.4-12.3) fL Immature Gran % (Auto) 0.2 (0.0-0.4) % Neut % (Auto) 42.7 L (45-73) % Lymph % (Auto) 47.1 H (20-40) % Harris % (Auto) 9.2 (2-11) % Eos % (Auto) 0.3 (0-4) % Baso % (Auto) 0.5 (0-2) % Lymph # (Auto) 3.0 (1.2-4.9) X10*3/uL Harris # (Auto) 0.6 (0.1-1.2) X10*3/uL Eos # (Auto) 0.0 (0.0-0.4) X10*3/uL Baso # (Auto) 0.0 (0.0-0.2) X10*3/uL Abs Immat Gran (auto) 0.01 (0.00-0.03) X10*3/uL Absolute Neuts (auto) 2.7 (2.0-8.3) x10*3/uL Absolute Nucleated RBC 0.000 (0.0-0.012) X10*3/uL Nucleated RBC % (auto) 0.0 (0.0-0.2) /100WBC Sodium 139 (135-145) mmol/L Potassium 4.2 (3.3-5.1) mmol/L Chloride 104 (96-108) mmol/L Carbon Dioxide 26 (22-29) mmol/L Anion Gap 13 (12-20) BUN 7 L (9-16) mg/dL Creatinine 0.57 (0.5-1.4) mg/dL Estim Creat Clear Calc 142.1 Estimated GFR > 60 POC Glucose 96 (60-115) mg/dL Random Glucose 98 (60-115) mg/dL Calcium 9.3 D (8.4-10.2) mg/dL Valproic Acid 92.8 (50.0-100.0) mcg/mL Independent Historian Clinical information obtained from an independent historian. History obtained from or confirmed by: Other (Daughter) Discharge Plan Discharge Clinical Impression: Psychogenic nonepileptic seizure Patient Disposition: Home, Self-Care Additional Instructions: Continue taking medications as prescribed by your providers. Your blood work was normal, your valproic acid level was within the therapeutic range. Follow-up with your doctor in 2 days. Please return to the emergency department if your symptoms get worse or if you develop any symptoms that are concerning to you. Prescriptions: No Action divalproex 500 mg tablet extended release 24 hr 1 tab PO BID amoxicillin 500 mg capsule 500 mg PO BID 10 Days Qty: 20 0RF ondansetron 4 mg tablet,disintegrating 4 mg PO Q8H PRN (Reason: nausea and vomiting) Qty: 20 0RF metformin 500 mg tablet 500 mg PO BIDWM famotidine 20 mg tablet 20 mg PO BID albuterol sulfate [Ventolin HFA] 90 mcg/actuation HFA aerosol inhaler 2 puff INHALATION Q4-6H PRN (Reason: Shortness Of Breath) loratadine 10 mg tablet 10 mg PO DAILY divalproex 250 mg tablet,delayed release (DR/EC) 250 mg PO DAILY divalproex 250 mg Tablet Extended Release 24 Hr 250 mg PO BEDTIME Qty: 30 0RF benzonatate 200 mg capsule 200 mg PO TID PRN (Reason: cough) Qty: 9 0RF hydrocortisone 2.5 % cream 1 appl topical TID PRN (Reason: itching) Qty: 20 0RF diphenhydramine HCl [Benadryl Allergy] 25 mg tablet 25 mg PO TID PRN (Reason: itching) Qty: 14 0RF budesonide-formoterol [Symbicort] 160-4.5 mcg/actuation HFA aerosol inhaler 2 puff inhalation BID 30 Days Qty: 10.2 11RF
[2023-12-01 16:45] LABS: Valproate 92.8 mcg/mL (50.0-100.0)
[2023-12-01 18:09] VITALS: BP 131/58; PULSE 85; RESP 13; O2SAT 99
[2023-12-01] MEDS: Midazolam HCl/PF 2 MG/2 ML VIAL IVPUSH (18:12)
[2023-12-01 20:45] VITALS: BP 112/57; PULSE 83; RESP 16; TEMP 36.6; O2SAT 100
--- NOTE | 2023-12-01 21:27 | PC.NURSE ---
Dr. Anderson aware of pt pain level.
== END 2023-12-01 22:00 | disposition home or self-care (01) ==
PROVIDERS: Emergency Provider Emergency Medicine Emergency Medical Services
DX: R56.9 Unspecified convulsions (principal); E11.9 Type 2 diabetes mellitus without complications; Z79.84 Long term (current) use of oral hypoglycemic drugs; Z79.899 Other long term (current) drug therapy
CPT/HCPCS: 36415; 80048; 80164; 82947; 85025; 96374; 99284; J2250

== ENCOUNTER 2023-12-05 20:57 | Emergency (ER) | payer MEDICAID, SELFPAY ==
--- NOTE | ~2023-12-05 | XR_ITS ---
EXAMINATION: XR FOOT, LEFT CLINICAL INFORMATION: Pain following trauma. COMPARISON: Left ankle radiographs dated 09/29/2022. TECHNIQUE: AP, lateral, and oblique views of the left foot. FINDINGS: No displaced fracture. No dislocation. No joint space narrowing or marginal osteophytes. No concerning lytic or blastic osseous lesion. Plantar and dorsal calcaneal enthesophytes. XR/XR foot LT min 3V IMPRESSION: 1. No acute fracture or dislocation. 2. Plantar and dorsal calcaneal spurs.
[2023-12-05 21:07] VITALS: BP 139/55; PULSE 82; RESP 18; TEMP 37; O2SAT 99; BMI 33.0
--- NOTE | 2023-12-06 00:23 | PC.NURSE ---
pt unable to bear weight on L. foot d/t pain under toes and of 2-4th toes. slight swelling/redness noted. tender to palpation. +pulses. +circulation. ice pack applied to foot awaiting primary eval by ed provider.
[2023-12-06 00:44] VITALS: BP 127/65; PULSE 79; RESP 20; TEMP 36.7; O2SAT 99
--- NOTE | 2023-12-06 01:02 | ED.GENADULT ---
HPI - General Adult General Chief complaint: Extremity Injury, Lower Stated complaint: Metal carjack fell on L foot Time Seen by Provider: 12/06/23 00:52 History of Present Illness HPI narrative: The patient is a 33-year-old female who says that this morning she opened the back of her car and a heavy metal carjack fell out and landed on the toes of her left foot. She had pain and came to the emergency room. She has pain with walking. No other injuries. Related Data Home Medications Medication Instructions Recorded Confirmed divalproex 500 mg tablet,extended 1 tab PO BID 12/29/22 07/30/23 release 24 hr albuterol sulfate 90 mcg/actuation 2 puff inhalation Q4-6H PRN 07/30/23 07/30/23 aerosol inhaler (Ventolin HFA) Shortness Of Breath divalproex 250 mg tablet,delayed 250 mg PO DAILY 07/30/23 07/30/23 release famotidine 20 mg tablet 20 mg PO BID 07/30/23 07/30/23 loratadine 10 mg tablet 10 mg PO DAILY 07/30/23 07/30/23 metformin 500 mg tablet 500 mg PO BIDWM 07/30/23 07/30/23 Previous Rx's Medication Instructions Recorded budesonide-formoterol HFA 160 2 puff inhalation BID 30 days 07/23/23 mcg-4.5 mcg/actuation aerosol #10.2 grams inhaler (Symbicort) ondansetron 4 mg disintegrating 4 mg PO Q8H PRN nausea and 07/23/23 tablet vomiting #20 tabs divalproex 250 mg tablet,extended 250 mg PO BEDTIME #30 tabs 07/31/23 release 24 hr amoxicillin 500 mg capsule 500 mg PO BID 10 days #20 caps 08/31/23 benzonatate 200 mg capsule 200 mg PO TID PRN cough #9 caps 10/06/23 diphenhydramine HCl 25 mg tablet 25 mg PO TID PRN itching #14 tabs 10/06/23 (Benadryl Allergy) hydrocortisone 2.5 % topical cream 1 appl topical TID PRN itching #20 10/06/23 grams ibuprofen 600 mg tablet 600 mg PO QID PRN pain #14 tabs 12/06/23 Allergies Allergy/AdvReac Type Severity Reaction Status Date / Time Iodinated Contrast Media Allergy Intermediate Facial Verified 12/05/23 21:06 Swelling clindamycin [CLINDAMYCIN] Allergy Unknown ANAPHYLAXIS Verified 12/05/23 21:06 Review of Systems Review of Systems: Yes all other systems are reviewed and are negative [facility] Past Medical History Medical History Chronic allergic rhinitis Otitis media Hypoxia Viral pneumonia Infection due to human metapneumovirus (hMPV) Diabetes mellitus Epilepsy Surgical History Hx of cholecystectomy Social History Social History Household Members: Spouse and Children Housing: Apartment Do you presently have visiting nurse or other home services: No Alcohol intake: current Alcohol intake frequency: holidays/special occasions only Patient Tobacco Use Status: Never used Tobacco Advance Directives: Yes Advance Directives on File: Yes Advance Directives Date on File: 08/17/23 service: No Current occupational status: employed Physical Exam ED Vital Signs: Vital Signs - 24 hr 12/05/23 21:07 12/06/23 00:44 Temperature 98.6 F 98.0 F Pulse Rate 82 79 Respiratory Rate 18 20 Blood Pressure 139/55 L 127/65 Pulse Oximetry 99 99 Oxygen Delivery Method Room Air Room Air BMI result Body Mass Index 33.0 Const Other: The patient is awake and alert and does not appear in obvious distress. Skin Other: There is some purplish discoloration to the 2nd and 3rd toes of the left foot. The skin of the toes is intact. No subungual hematoma. No bruising to the foot itself. Neuro Other: The patient is awake, alert, oriented, appropriate. Grossly neurologically intact. Extrem Other: The patient has some purplish discoloration to the 2nd and 3rd toes of the left foot. No deformity. The patient is tender with palpation of these toes. The foot itself is nontender. Medical Decision Making Medical Decision Making MDM Narrative: The patient sustained a crush type injury to the toes of her left foot. She has a negative x-ray. There is no deformity on exam. Skin is intact. There is some purplish discoloration to the skin and some mild soft tissue swelling. No subungual hematoma. I think she essentially has bruising to the 2nd and 3rd toes. She will be given a postop shoe. She will be given a prescription for ibuprofen. She will be advised to keep the foot elevated. Discharge Plan Discharge Clinical Impression: Contusion, toes Patient Disposition: Home, Self-Care Additional Instructions: You have bruising to the toes of your left foot. There is no broken bone. This is an injury that will have to heal on its own over the next several days. In order to help it is healing you should try to rest and take it easy. Avoid walking. When sitting please keep the foot elevated. Elevation of the foot will reduce pain and swelling. You may use the shoe provided to see if it is more comfortable than wearing any of your regular shoes. You may use ibuprofen and acetaminophen as needed for pain. Please follow-up with your regular doctor. Prescriptions: New ibuprofen 600 mg tablet 600 mg PO QID PRN (Reason: pain) Qty: 14 0RF No Action divalproex 500 mg tablet extended release 24 hr 1 tab PO BID amoxicillin 500 mg capsule 500 mg PO BID 10 Days Qty: 20 0RF ondansetron 4 mg tablet,disintegrating 4 mg PO Q8H PRN (Reason: nausea and vomiting) Qty: 20 0RF metformin 500 mg tablet 500 mg PO BIDWM famotidine 20 mg tablet 20 mg PO BID albuterol sulfate [Ventolin HFA] 90 mcg/actuation HFA aerosol inhaler 2 puff INHALATION Q4-6H PRN (Reason: Shortness Of Breath) loratadine 10 mg tablet 10 mg PO DAILY divalproex 250 mg tablet,delayed release (DR/EC) 250 mg PO DAILY divalproex 250 mg Tablet Extended Release 24 Hr 250 mg PO BEDTIME Qty: 30 0RF benzonatate 200 mg capsule 200 mg PO TID PRN (Reason: cough) Qty: 9 0RF hydrocortisone 2.5 % cream 1 appl topical TID PRN (Reason: itching) Qty: 20 0RF diphenhydramine HCl [Benadryl Allergy] 25 mg tablet 25 mg PO TID PRN (Reason: itching) Qty: 14 0RF budesonide-formoterol [Symbicort] 160-4.5 mcg/actuation HFA aerosol inhaler 2 puff inhalation BID 30 Days Qty: 10.2 11RF Referrals: aKth Venegas MD [Physician] - (Contusion of toes of left foot)
[2023-12-06] MEDS: Ibuprofen 600 MG TABLET PO (01:28)
== END 2023-12-06 01:34 | disposition home or self-care (01) ==
PROVIDERS: Emergency Provider Emergency Medicine
DX: S90.121A Contusion of right lesser toe(s) without damage to nail, initial encounter (principal); S90.122A Contusion of left lesser toe(s) without damage to nail, initial encounter; Y29.XXXA Contact with blunt object, undetermined intent, initial encounter; Y93.9 Activity, unspecified; Y92.810 Car as the place of occurrence of the external cause; Y99.8 Other external cause status
CPT/HCPCS: 73630; 99283; 99284

== ENCOUNTER 2023-12-18 13:36 | Emergency (ER) | payer MEDICAID, SELFPAY ==
--- NOTE | 2023-12-18 13:51 | ED_ITS ---
HPI - Neuro Symptoms/Deficit General Chief Complaint: Seizure Stated Complaint: WITNESSED SEIZURE Time Seen by Provider: 12/18/23 13:49 Source: patient Mode of arrival: EMS Limitations: no limitations History of Present Illness HPI Narrative: 33-year-old female with a history of diabetes mellitus, asthma, seizure and pseudo-seizure who presents emergency department for seizure-like activity at home. The patient states she got a phone call from her 9-year-old son's school stating that her son was upset and was trying to run away from school. The patient states that the phone call made her very upset and then she became shaky and fell to the floor. She states she did not hit her head. She states she still feels very shaky and anxious. 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 I did see the patient recently on 12/01/2023 for psychogenic pseudo-seizure which occurred after a stressful event. The patient denied being ill in any way prior to getting the phone call from her son school. She currently is complaining of a headache and states she feels very tremulous. She states she has been compliant with her medications. Related Data Home Medications Medication Instructions Recorded Confirmed divalproex 500 mg tablet,extended 1 tab PO BID 12/29/22 07/30/23 release 24 hr albuterol sulfate 90 mcg/actuation 2 puff inhalation Q4-6H PRN 07/30/23 07/30/23 aerosol inhaler (Ventolin HFA) Shortness Of Breath divalproex 250 mg tablet,delayed 250 mg PO DAILY 07/30/23 07/30/23 release famotidine 20 mg tablet 20 mg PO BID 07/30/23 07/30/23 loratadine 10 mg tablet 10 mg PO DAILY 07/30/23 07/30/23 metformin 500 mg tablet 500 mg PO BIDWM 07/30/23 07/30/23 Previous Rx's Medication Instructions Recorded budesonide-formoterol HFA 160 2 puff inhalation BID 30 days 07/23/23 mcg-4.5 mcg/actuation aerosol #10.2 grams inhaler (Symbicort) ondansetron 4 mg disintegrating 4 mg PO Q8H PRN nausea and 07/23/23 tablet vomiting #20 tabs divalproex 250 mg tablet,extended 250 mg PO BEDTIME #30 tabs 07/31/23 release 24 hr amoxicillin 500 mg capsule 500 mg PO BID 10 days #20 caps 08/31/23 benzonatate 200 mg capsule 200 mg PO TID PRN cough #9 caps 10/06/23 diphenhydramine HCl 25 mg tablet 25 mg PO TID PRN itching #14 tabs 10/06/23 (Benadryl Allergy) hydrocortisone 2.5 % topical cream 1 appl topical TID PRN itching #20 10/06/23 grams ibuprofen 600 mg tablet 600 mg PO QID PRN pain #14 tabs 12/06/23 Allergies Allergy/AdvReac Type Severity Reaction Status Date / Time Iodinated Contrast Media Allergy Intermediate Facial Verified 12/18/23 14:12 Swelling clindamycin [CLINDAMYCIN] Allergy Unknown ANAPHYLAXIS Verified 12/18/23 14:12 Review of Systems Review of Systems: Yes all other systems are reviewed and are negative [facility] Past Medical History [facility] Narrative: Social history: She does smoke cigarettes. She rarely drinks alcohol and was not drinking alcohol prior to coming to the emergency department. She denies drug use. Medical History Chronic allergic rhinitis Otitis media Hypoxia Viral pneumonia Infection due to human metapneumovirus (hMPV) Diabetes mellitus Epilepsy Surgical History Hx of cholecystectomy Social History Social History Household Members: Spouse and Children Housing: Apartment Do you presently have visiting nurse or other home services: No Alcohol intake: current Alcohol intake frequency: holidays/special occasions only Patient Tobacco Use Status: Never used Tobacco Advance Directives: Yes Advance Directives on File: Yes Advance Directives Date on File: 08/17/23 service: No Current occupational status: employed Physical Exam Vital Signs: Vital Signs: Last Vital Signs Temp 97.8 F 12/18/23 13:59 Pulse 94 12/18/23 13:59 Resp 18 12/18/23 13:59 BP 118/81 12/18/23 13:59 O2 Del Method Room Air 12/18/23 13:59 BMI result Body Mass Index 38.2 Exam: General: Awake, appears anxious, her eyes were fluttering and occasionally her eyes were rolled back but she can still talk and had no loss of consciousness, she does appear tremulous Head: Normocephalic, atraumatic EENT: PERRL, Lids normal, sclera normal, conjunctiva normal, nose normal , ears normal, throat without erythema or exudates Neck: Supple, no adenopathy Lung: breath sounds symmetric, no wheezing, rales or rhonchi Chest: symmetric movement, nontender Heart: regular rate and rhythm, normal S1, S2 no murmurs or rubs Abdomen: soft, non-tender, nondistended, normal bowel sounds Back: no vertebral tenderness, no CVAT Extremities: no deformities, moves all extremities symmetrically Neuro: Awake, alert, oriented, normal speech, cranial nerves intact, moves all extremities symmetrically Psych: Pleasant, cooperative, anxious Medications Administered Discontinued Medications Generic Name Dose Route Start Last Admin Trade Name Freq PRN Reason Stop Dose Admin Acetaminophen 975 mg 12/18/23 13:59 12/18/23 14:15 Acetaminophen 325 Mg Tablet PO 12/18/23 14:00 975 mg ONCE STA Administration Lorazepam 2 mg 12/18/23 13:59 12/18/23 14:14 Lorazepam 1 Mg Tablet PO 12/18/23 14:00 2 mg ONCE STA Administration Medical Decision Making Medical Decision Making [facility] Narrative: 33-year-old female with a history of diabetes mellitus, asthma, seizure and pseudo-seizure who presents emergency department for seizure-like activity at home after getting a distressing phone call from the patient's sons school stating that the son was upset and trying to run away from school. Patient states that after the phone call she became very anxious, was shaking and felt the floor. She denies hitting her head or being ill prior to getting the phone call. On exam in the emergency department the patient's eyes were fluttering and occasionally her eyes were rolled back but she is awake and able to talk through this event, she is also tremulous. Her exam including neurologic exam is otherwise unremarkable. Patient was treated with the following: Tylenol 975 mg orally and Ativan 2 mg orally Differential diagnosis: Includes but is not limited to seizure, pseudo-seizure, panic attack, anxiety. 16:03 Patient is feeling better after the above medications, her tremors have improved but she states that her headache is still present but also improved. Patient was discharged home and advised to continue taking medications as prescribed. Admission/Observation Consideration of admission/observation: Escalation of care including admission/observation considered Chronic Conditions Patient?s care impacted by: Diabetes and Other (Seizure disorder, anxiety, pseudoseizures) Discharge Plan Discharge Clinical Impression: Anxiety attack, Psychogenic nonepileptic seizure Patient Disposition: Home, Self-Care Additional Instructions: You were given Ativan (lorazepam) 2 mg orally here in the emergency department. This medication will make you sleepy. Go home and rest and do not do anything for the rest of the day. You also received Tylenol 975 mg orally for your headache. Continue taking medications as prescribed by your providers. Follow-up with your doctor in 2 days. Please return to the emergency department if your symptoms get worse or if you develop any symptoms that are concerning to you. Prescriptions: No Action divalproex 500 mg tablet extended release 24 hr 1 tab PO BID amoxicillin 500 mg capsule 500 mg PO BID 10 Days Qty: 20 0RF ibuprofen 600 mg tablet 600 mg PO QID PRN (Reason: pain) Qty: 14 0RF ondansetron 4 mg tablet,disintegrating 4 mg PO Q8H PRN (Reason: nausea and vomiting) Qty: 20 0RF metformin 500 mg tablet 500 mg PO BIDWM famotidine 20 mg tablet 20 mg PO BID albuterol sulfate [Ventolin HFA] 90 mcg/actuation HFA aerosol inhaler 2 puff INHALATION Q4-6H PRN (Reason: Shortness Of Breath) loratadine 10 mg tablet 10 mg PO DAILY divalproex 250 mg tablet,delayed release (DR/EC) 250 mg PO DAILY divalproex 250 mg Tablet Extended Release 24 Hr 250 mg PO BEDTIME Qty: 30 0RF benzonatate 200 mg capsule 200 mg PO TID PRN (Reason: cough) Qty: 9 0RF hydrocortisone 2.5 % cream 1 appl topical TID PRN (Reason: itching) Qty: 20 0RF diphenhydramine HCl [Benadryl Allergy] 25 mg tablet 25 mg PO TID PRN (Reason: itching) Qty: 14 0RF budesonide-formoterol [Symbicort] 160-4.5 mcg/actuation HFA aerosol inhaler 2 puff inhalation BID 30 Days Qty: 10.2 11RF
[2023-12-18 13:59] VITALS: BP 107/61; BP 118/81; PULSE 94; PULSE 96; RESP 18; TEMP 36.6; O2SAT 98; BMI 38.2
[2023-12-18] MEDS: LORazepam 1 MG TABLET 2 MG PO (14:14)
[2023-12-18] MEDS: Acetaminophen 325 MG TABLET 975 MG PO (14:15)
[2023-12-18 16:15] VITALS: BP 104/53; PULSE 80; RESP 16; TEMP 36.7; O2SAT 97
== END 2023-12-18 16:38 | disposition home or self-care (01) ==
PROVIDERS: Emergency Provider Emergency Medicine Emergency Medical Services; PCP Internal Medicine
DX: R56.9 Unspecified convulsions (principal); F41.1 Generalized anxiety disorder; E11.9 Type 2 diabetes mellitus without complications; Z79.899 Other long term (current) drug therapy; Z79.84 Long term (current) use of oral hypoglycemic drugs
CPT/HCPCS: 99283; 99284

== ENCOUNTER 2023-12-24 10:25 | Emergency (ER) | payer MEDICAID, SELFPAY ==
[2023-12-24 10:35] VITALS: BP 114/52; BP 142/86; PULSE 80; RESP 16; TEMP 36.8; O2SAT 97; BMI 37.8
[2023-12-24 10:43] VITALS: RESP 16
--- NOTE | 2023-12-24 10:44 | ED.SEIZURE ---
HPI - Seizure General Chief Complaint: Seizure Stated Complaint: SZ PER EMS Time Seen by Provider: 12/24/23 10:36 History of Present Illness Seizure History: Yes Related Data Home Medications Medication Instructions Recorded Confirmed divalproex 500 mg tablet,extended 1 tab PO BID 12/29/22 07/30/23 release 24 hr albuterol sulfate 90 mcg/actuation 2 puff inhalation Q4-6H PRN 07/30/23 07/30/23 aerosol inhaler (Ventolin HFA) Shortness Of Breath divalproex 250 mg tablet,delayed 250 mg PO DAILY 07/30/23 07/30/23 release famotidine 20 mg tablet 20 mg PO BID 07/30/23 07/30/23 loratadine 10 mg tablet 10 mg PO DAILY 07/30/23 07/30/23 metformin 500 mg tablet 500 mg PO BIDWM 07/30/23 07/30/23 Previous Rx's Medication Instructions Recorded budesonide-formoterol HFA 160 2 puff inhalation BID 30 days 07/23/23 mcg-4.5 mcg/actuation aerosol #10.2 grams inhaler (Symbicort) ondansetron 4 mg disintegrating 4 mg PO Q8H PRN nausea and 07/23/23 tablet vomiting #20 tabs divalproex 250 mg tablet,extended 250 mg PO BEDTIME #30 tabs 07/31/23 release 24 hr amoxicillin 500 mg capsule 500 mg PO BID 10 days #20 caps 08/31/23 benzonatate 200 mg capsule 200 mg PO TID PRN cough #9 caps 10/06/23 diphenhydramine HCl 25 mg tablet 25 mg PO TID PRN itching #14 tabs 10/06/23 (Benadryl Allergy) hydrocortisone 2.5 % topical cream 1 appl topical TID PRN itching #20 10/06/23 grams ibuprofen 600 mg tablet 600 mg PO QID PRN pain #14 tabs 12/06/23 Allergies Allergy/AdvReac Type Severity Reaction Status Date / Time Iodinated Contrast Media Allergy Intermediate Facial Verified 12/24/23 10:43 Swelling clindamycin [CLINDAMYCIN] Allergy Unknown ANAPHYLAXIS Verified 12/24/23 10:43 latex Allergy Itching Verified 12/24/23 10:43 [facility] Past Medical History Medical History Chronic allergic rhinitis Otitis media Hypoxia Viral pneumonia Infection due to human metapneumovirus (hMPV) Diabetes mellitus Epilepsy Surgical History Hx of cholecystectomy Social History Social History Household Members: Spouse and Children Housing: Apartment Do you presently have visiting nurse or other home services: No Alcohol intake: current Alcohol intake frequency: holidays/special occasions only Patient Tobacco Use Status: Never used Tobacco Smoked in Last 30 Days: No Use of substances other than those prescribed or required for medical reasons: No Advance Directives Date on File: 08/17/23 Patient : No service: No Current occupational status: employed Physical Exam Vital Signs: Vital Signs: Last Vital Signs Temp 98.3 F 12/24/23 10:35 Pulse 80 12/24/23 10:35 Resp 16 12/24/23 10:43 BP 114/52 L 12/24/23 10:35 Pulse Ox 97 12/24/23 10:35 O2 Del Method Room Air 12/24/23 10:35 BMI result Body Mass Index 37.8 Discharge Plan Discharge Prescriptions: No Action divalproex 500 mg tablet extended release 24 hr 1 tab PO BID amoxicillin 500 mg capsule 500 mg PO BID 10 Days Qty: 20 0RF ibuprofen 600 mg tablet 600 mg PO QID PRN (Reason: pain) Qty: 14 0RF ondansetron 4 mg tablet,disintegrating 4 mg PO Q8H PRN (Reason: nausea and vomiting) Qty: 20 0RF metformin 500 mg tablet 500 mg PO BIDWM famotidine 20 mg tablet 20 mg PO BID albuterol sulfate [Ventolin HFA] 90 mcg/actuation HFA aerosol inhaler 2 puff INHALATION Q4-6H PRN (Reason: Shortness Of Breath) loratadine 10 mg tablet 10 mg PO DAILY divalproex 250 mg tablet,delayed release (DR/EC) 250 mg PO DAILY divalproex 250 mg Tablet Extended Release 24 Hr 250 mg PO BEDTIME Qty: 30 0RF benzonatate 200 mg capsule 200 mg PO TID PRN (Reason: cough) Qty: 9 0RF hydrocortisone 2.5 % cream 1 appl topical TID PRN (Reason: itching) Qty: 20 0RF diphenhydramine HCl [Benadryl Allergy] 25 mg tablet 25 mg PO TID PRN (Reason: itching) Qty: 14 0RF budesonide-formoterol [Symbicort] 160-4.5 mcg/actuation HFA aerosol inhaler 2 puff inhalation BID 30 Days Qty: 10.2 11RF
--- NOTE | 2023-12-24 10:45 | PC.NURSE ---
pt is alert but drowsy, able to answer questions appropriately just slightly slow, respirations even and unlabored, ls clear, pt was at school sitting down in a chair when she had a witnessed seizure by school that lasted about 5min, pt remora taking depakote at home but her doses have been decreased recently, no seizure activity at this time, vs stable and ns on the monitor
--- NOTE | 2023-12-24 10:48 | ED.SEIZURE ---
HPI - Seizure General Chief Complaint: Seizure Stated Complaint: SZ PER EMS Time Seen by Provider: 12/24/23 10:36 Source: EMS Mode of arrival: EMS Limitations: no limitations History of Present Illness HPI Narrative: This 33 years old female presented to the emergency department after possible seizure. She was at the [facility] [employer] she starts to shake. He has given a 2 mg by the EMS. No reported incontinence of urine no tongue biting she arrived awake and alert at this time. Looking through the records the patient has history of epileptic and known epilepsy seizure (note of Dr Inman 08/20). MD complaint: possible seizure Onset (ago): hour(s) (1) Witnessed: Yes - by Bystander Trauma: No Seizure History: Yes Place: School Possible Precipitating Event: none Associated symptoms: denies other symptoms Related Data Home Medications Medication Instructions Recorded Confirmed divalproex 500 mg tablet,extended 1 tab PO BID 12/29/22 07/30/23 release 24 hr albuterol sulfate 90 mcg/actuation 2 puff inhalation Q4-6H PRN 07/30/23 07/30/23 aerosol inhaler (Ventolin HFA) Shortness Of Breath divalproex 250 mg tablet,delayed 250 mg PO DAILY 07/30/23 07/30/23 release famotidine 20 mg tablet 20 mg PO BID 07/30/23 07/30/23 loratadine 10 mg tablet 10 mg PO DAILY 07/30/23 07/30/23 metformin 500 mg tablet 500 mg PO BIDWM 07/30/23 07/30/23 Previous Rx's Medication Instructions Recorded budesonide-formoterol HFA 160 2 puff inhalation BID 30 days 07/23/23 mcg-4.5 mcg/actuation aerosol #10.2 grams inhaler (Symbicort) ondansetron 4 mg disintegrating 4 mg PO Q8H PRN nausea and 07/23/23 tablet vomiting #20 tabs divalproex 250 mg tablet,extended 250 mg PO BEDTIME #30 tabs 07/31/23 release 24 hr amoxicillin 500 mg capsule 500 mg PO BID 10 days #20 caps 08/31/23 benzonatate 200 mg capsule 200 mg PO TID PRN cough #9 caps 10/06/23 diphenhydramine HCl 25 mg tablet 25 mg PO TID PRN itching #14 tabs 10/06/23 (Benadryl Allergy) hydrocortisone 2.5 % topical cream 1 appl topical TID PRN itching #20 10/06/23 grams ibuprofen 600 mg tablet 600 mg PO QID PRN pain #14 tabs 12/06/23 Allergies Allergy/AdvReac Type Severity Reaction Status Date / Time Iodinated Contrast Media Allergy Intermediate Facial Verified 12/24/23 10:43 Swelling clindamycin [CLINDAMYCIN] Allergy Unknown ANAPHYLAXIS Verified 12/24/23 10:43 latex Allergy Itching Verified 12/24/23 10:43 Review of Systems Constitutional: Constitutional: Reports no additional constitutional complaints ENT: Reports system reviewed and no additional complaints, except as documented Cardiovascular: Cardiovascular: Reports no additional cardiovascular complaints PMFSH Past Medical History Attestation statement: The following information was validated with the patient. Medical History Chronic allergic rhinitis Otitis media Hypoxia Viral pneumonia Infection due to human metapneumovirus (hMPV) Diabetes mellitus Epilepsy Surgical History Hx of cholecystectomy Social History Social History Household Members: Spouse and Children Housing: Apartment Do you presently have visiting nurse or other home services: No Alcohol intake: current Alcohol intake frequency: holidays/special occasions only Patient Tobacco Use Status: Never used Tobacco Smoked in Last 30 Days: No Use of substances other than those prescribed or required for medical reasons: No Advance Directives: Yes Advance Directives on File: Yes Advance Directives Date on File: 08/17/23 Patient : No service: No Current occupational status: employed Physical Exam Vital Signs: Vital Signs: Last Vital Signs Temp 98.1 F 12/24/23 14:16 Pulse 87 12/24/23 17:29 Resp 18 12/24/23 17:29 BP 114/62 12/24/23 17:29 Pulse Ox 98 12/24/23 17:29 O2 Del Method Room Air 12/24/23 17:29 BMI result Body Mass Index 37.8 Const: General: cooperative, comfortable and no acute distress Nutritional Appearance: average body habitus Orientation/consciousness: patient oriented x3 Limitations: no limitations HEENT: Head: Yes normal to inspection General nose exam: Normal external nose present Face and sinus: Yes normal facial exam Neck: Neck: Yes normal visual inspection Chest: Chest palpation & inspection: normal inspection of the chest Resp: Effort & Inspection: normal respiratory effort Auscultation: clear to auscultation bilaterally Cardio: Jugular venous distension: no JVD Rate: regular rate Rhythm: regular rhythm GI: Inspection: Yes normal to inspection Palpation (GI): Soft to palpation Skin: General skin exam: no rashes or lesions noted Lesions: no lesions Rashes: no rashes Hair: normal Neuro: General: patient oriented x3 Cranial nerves: Yes CN's II-XII intact bilaterally Extrem: General: Yes normal to inspection Course Reevaluation(s) Reevaluation #1: Patient remain stable clinically she was observed in the emergency room for few hours. She remained seizure-free a Depakote level was slightly low I gave extra 250. She ambulate to the bathroom Time: 15:25 Medications Administered Discontinued Medications Generic Name Dose Route Start Last Admin Trade Name Freq PRN Reason Stop Dose Admin Valproic Acid 500 mg 12/24/23 15:17 12/24/23 16:41 Valproic Acid 250 Mg Capsule PO 12/24/23 15:18 500 mg ONCE ONE Administration Medical Decision Making Medical Decision Making [facility] Narrative: Patient presented to emergency department after seizure, she has history of epilepsy, will check labs and reassessed looking through the record the a question raised about pseudo seizure Differential Diagnosis Differential Diagnoses: The differential diagnosis associated with the presentation includes Seizure/pseudoseizures Admission/Observation Consideration of admission/observation: Escalation of care including admission/observation considered Consult Healthcare Provider Management of the patient was discussed with: Hospitalist Lab Data [facility] Lab Attestation statement: I reviewed the patient's lab results. 12/24/23 11:00 12/24/23 11:00 Labs: Lab Results 12/24/23 Range/Units 11:00 WBC 6.1 (4.8-10.8) X10*3/uL RBC 3.45 L (4.20-5.50) X10*6/uL Hgb 11.1 L (12.0-16.0) g/dl Hct 34.1 L (37.0-47.0) % MCV 98.8 H (80.0-98.0) fL MCH 32.2 (27.0-33.0) pg MCHC 32.6 (31.0-35.0) g/dl RDW 12.7 (11.0-16.0) % Plt Count 233 (160-400) X10*3/uL MPV 10.4 (9.4-12.3) fL Immature Gran % (Auto) 0.2 (0.0-0.4) % Neut % (Auto) 49.7 (45-73) % Lymph % (Auto) 40.8 H (20-40) % [place] % (Auto) 8.7 (2-11) % Eos % (Auto) 0.3 (0-4) % Baso % (Auto) 0.3 (0-2) % Lymph # (Auto) 2.5 (1.2-4.9) X10*3/uL [place] # (Auto) 0.5 (0.1-1.2) X10*3/uL Eos # (Auto) 0.0 (0.0-0.4) X10*3/uL Baso # (Auto) 0.0 (0.0-0.2) X10*3/uL Abs Immat Gran (auto) 0.01 (0.00-0.03) X10*3/uL Absolute Neuts (auto) 3.0 (2.0-8.3) x10*3/uL Absolute Nucleated RBC 0.000 (0.0-0.012) X10*3/uL Nucleated RBC % (auto) 0.0 (0.0-0.2) /100WBC Sodium 138 (135-145) mmol/L Potassium 3.9 (3.3-5.1) mmol/L Chloride 106 (96-108) mmol/L Carbon Dioxide 25 (22-29) mmol/L Anion Gap 11 L (12-20) BUN 13 (9-16) mg/dL Creatinine 0.57 (0.5-1.4) mg/dL Estim Creat Clear Calc 139.6 Estimated GFR > 60 Random Glucose 150 H (60-115) mg/dL Calcium 9.3 (8.4-10.2) mg/dL Magnesium 1.8 (1.6-2.6) mg/dL Total Bilirubin 0.3 (0.0-1.0) mg/dL AST 35 H (5-31) U/L ALT 39 H (0-31) U/L Alkaline Phosphatase 54 (39-117) U/L Total Protein 7.0 (6.5-8.0) g/dL Albumin 3.8 (3.5-5.0) g/dL Beta HCG, Quant < 2 mIU/mL Valproic Acid 43.8 L (50.0-100.0) mcg/mL Independent Historian Clinical information obtained from an independent historian. History obtained from or confirmed by: EMS Discharge Plan Discharge Clinical Impression: Seizure Patient Disposition: Home, Self-Care Instructions: Recurrent Seizures in Adults (ED) Additional Instructions: Please call your neurology in a.m. and make an appointment, return to the emergency room if you worse any concern, do not drive or operate machinery for 6 months Prescriptions: No Action divalproex 500 mg tablet extended release 24 hr 1 tab PO BID amoxicillin 500 mg capsule 500 mg PO BID 10 Days Qty: 20 0RF ibuprofen 600 mg tablet 600 mg PO QID PRN (Reason: pain) Qty: 14 0RF ondansetron 4 mg tablet,disintegrating 4 mg PO Q8H PRN (Reason: nausea and vomiting) Qty: 20 0RF metformin 500 mg tablet 500 mg PO BIDWM famotidine 20 mg tablet 20 mg PO BID albuterol sulfate [Ventolin HFA] 90 mcg/actuation HFA aerosol inhaler 2 puff INHALATION Q4-6H PRN (Reason: Shortness Of Breath) loratadine 10 mg tablet 10 mg PO DAILY divalproex 250 mg tablet,delayed release (DR/EC) 250 mg PO DAILY divalproex 250 mg Tablet Extended Release 24 Hr 250 mg PO BEDTIME Qty: 30 0RF benzonatate 200 mg capsule 200 mg PO TID PRN (Reason: cough) Qty: 9 0RF hydrocortisone 2.5 % cream 1 appl topical TID PRN (Reason: itching) Qty: 20 0RF diphenhydramine HCl [Benadryl Allergy] 25 mg tablet 25 mg PO TID PRN (Reason: itching) Qty: 14 0RF budesonide-formoterol [Symbicort] 160-4.5 mcg/actuation HFA aerosol inhaler 2 puff inhalation BID 30 Days Qty: 10.2 11RF Referrals: Kath Venegas MD [Primary Care Provider] - 1 day Stand Alone Forms: Work/School Release Interventions: ED Discharge Assessment Last Done: 12/24/23 17:46 Discharge Date/Time: 12/24/23 17:47
[2023-12-24 11:05] LABS: MANUAL DIFF FLAG NO
[2023-12-24 11:10] LABS: Basophils Percent Auto 0.3 % (0-2); Eosinophils Percent Auto 0.3 % (0-4); Hematocrit 34.1 % (37.0-47.0); Hemoglobin 11.1 g/dl (12.0-16.0); Imm Gran Abs Auto 0.01 X10*3/uL (0.00-0.03); Imm Gran Pct Auto 0.2 % (0.0-0.4); Lymphocytes Absolute Auto 2.5 X10*3/uL (1.2-4.9); Lymphocytes Percent Auto 40.8 % (20-40); Mean Corpuscular HGB Conc 32.6 g/dl (31.0-35.0); Mean Corpuscular Hemoglobin 32.2 pg (27.0-33.0); Mean Corpuscular Volume 98.8 fL (80.0-98.0); Mean Platelet Volume 10.4 fL (9.4-12.3); Monocytes Absolute Auto 0.5 X10*3/uL (0.1-1.2); Monocytes Percent Auto 8.7 % (2-11); Neutrophils Percent Auto 49.7 % (45-73); Platelet Count 233 X10*3/uL (160-400); Red Blood Count 3.45 X10*6/uL (4.20-5.50); Red Cell Distribution Width 12.7 % (11.0-16.0); White Blood Count 6.1 X10*3/uL (4.8-10.8)
[2023-12-24 11:19] LABS: Valproate 43.8 mcg/mL (50.0-100.0)
[2023-12-24 11:21] LABS: Alanine Aminotransferase 39 U/L (0-31); Albumin Level 3.8 g/dL (3.5-5.0); Alkaline Phosphatase 54 U/L (39-117); Anion Gap 11 (12-20); Aspartate Amino Transferase 35 U/L (5-31); Bilirubin Total 0.3 mg/dL (0.0-1.0); Blood Urea Nitrogen 13 mg/dL (9-16); Calcium 9.3 mg/dL (8.4-10.2); Carbon Dioxide 25 mmol/L (22-29); Chloride 106 mmol/L (96-108); Creatinine Clr Calc Pharmacy 139.6; Estimated Glomerular Filt Rate > 60; Glucose Random 150 mg/dL (60-115); Magnesium 1.8 mg/dL (1.6-2.6); Potassium 3.9 mmol/L (3.3-5.1); Sodium 138 mmol/L (135-145)
[2023-12-24 11:28] LABS: HCG Quantitative < 2 mIU/mL
[2023-12-24 14:16] VITALS: BP 102/55; PULSE 64; RESP 17; TEMP 36.7; O2SAT 98
[2023-12-24] MEDS: Valproic Acid 250 MG CAPSULE 500 MG PO (16:41)
[2023-12-24 17:29] VITALS: BP 114/62; PULSE 87; RESP 18; O2SAT 98
== END 2023-12-24 17:47 | disposition home or self-care (01) ==
PROVIDERS: Emergency Provider Emergency Medicine; PCP Internal Medicine
DX: G40.909 Epilepsy, unspecified, not intractable, without status epilepticus (principal); E11.9 Type 2 diabetes mellitus without complications
CPT/HCPCS: 36415; 80053; 80164; 83735; 84702; 85025; 99283; 99284

== ENCOUNTER 2023-12-27 16:37 | Emergency (ER) | payer MEDICAID, SELFPAY ==
[2023-12-27 16:55] VITALS: BP 117/72; PULSE 93; RESP 18; TEMP 36.8; O2SAT 98; BMI 32.3
--- NOTE | 2023-12-27 16:56 | ED.GENADULT ---
HPI - General Adult General Chief complaint: Upper Respiratory Symptoms Stated complaint: sore throat, sob, fever Time Seen by Provider: 12/27/23 17:21 Source: patient Mode of arrival: ambulatory Limitations: no limitations History of Present Illness HPI narrative: 33-year-old female history of diabetes, epilepsy, cholecystectomy presenting to the emergency department for evaluation fatigue, malaise, myalgias, sore throat, cough ongoing for the past 3 days. Cough is dry nonproductive and when she is coughing has shortness of breath however when she has not coughing no present shortness of breath.. Denies recent sick contacts. Denies chest pain, wheezing, nausea, vomiting, diarrhea, abdominal pain, headache, vision changes, dizziness, weakness, fevers and chills. Related Data Home Medications Medication Instructions Recorded Confirmed divalproex 500 mg tablet,extended 1 tab PO BID 12/29/22 07/30/23 release 24 hr albuterol sulfate 90 mcg/actuation 2 puff inhalation Q4-6H PRN 07/30/23 07/30/23 aerosol inhaler (Ventolin HFA) Shortness Of Breath divalproex 250 mg tablet,delayed 250 mg PO DAILY 07/30/23 07/30/23 release famotidine 20 mg tablet 20 mg PO BID 07/30/23 07/30/23 loratadine 10 mg tablet 10 mg PO DAILY 07/30/23 07/30/23 metformin 500 mg tablet 500 mg PO BIDWM 07/30/23 07/30/23 Previous Rx's Medication Instructions Recorded budesonide-formoterol HFA 160 2 puff inhalation BID 30 days 07/23/23 mcg-4.5 mcg/actuation aerosol #10.2 grams inhaler (Symbicort) ondansetron 4 mg disintegrating 4 mg PO Q8H PRN nausea and 07/23/23 tablet vomiting #20 tabs divalproex 250 mg tablet,extended 250 mg PO BEDTIME #30 tabs 07/31/23 release 24 hr amoxicillin 500 mg capsule 500 mg PO BID 10 days #20 caps 08/31/23 benzonatate 200 mg capsule 200 mg PO TID PRN cough #9 caps 10/06/23 diphenhydramine HCl 25 mg tablet 25 mg PO TID PRN itching #14 tabs 10/06/23 (Benadryl Allergy) hydrocortisone 2.5 % topical cream 1 appl topical TID PRN itching #20 10/06/23 grams ibuprofen 600 mg tablet 600 mg PO QID PRN pain #14 tabs 12/06/23 albuterol sulfate 90 mcg/actuation 2 inh inhalation Q4-6H PRN 12/27/23 breath activated powder inhaler shortness of breath or wheezing #1 ea benzonatate 100 mg capsule 100 mg PO BID PRN cough #20 caps 12/27/23 prednisone 20 mg tablet 20 mg PO DAILY 5 days #5 tabs 12/27/23 Allergies Allergy/AdvReac Type Severity Reaction Status Date / Time Iodinated Contrast Media Allergy Intermediate Facial Verified 12/24/23 10:43 Swelling clindamycin [CLINDAMYCIN] Allergy Unknown ANAPHYLAXIS Verified 12/24/23 10:43 latex Allergy Itching Verified 12/24/23 10:43 Review of Systems Review of Systems: Yes all other systems are reviewed and are negative PMFSH Past Medical History Attestation statement: The following information was validated with the patient. Source: old records reviewed and nursing notes reviewed Medical History Chronic allergic rhinitis Otitis media Hypoxia Viral pneumonia Infection due to human metapneumovirus (hMPV) Diabetes mellitus Epilepsy Surgical History Hx of cholecystectomy Social History Social History Household Members: Spouse and Children Housing: Apartment Do you presently have visiting nurse or other home services: No Alcohol intake: current Alcohol intake frequency: holidays/special occasions only Patient Tobacco Use Status: Never used Tobacco Advance Directives: Yes Advance Directives on File: Yes Advance Directives Date on File: 08/17/23 service: No Current occupational status: employed Physical Exam ED Vital Signs: Vital Signs - 24 hr 12/27/23 16:55 Temperature 98.3 F Pulse Rate 93 Respiratory Rate 18 Blood Pressure 117/72 Pulse Oximetry 98 Oxygen Delivery Method Room Air BMI result Body Mass Index 32.3 Vital signs stable Appearance: Alert.? Oriented X3.? No acute distress.? Head: Normocephalic, atraumatic, no step-offs or deformities Eyes: Pupils equal, round and reactive to light.? ENT: Pharynx normal.? Uvula midline. Normal tonsils. No exudate or abscess. Speaking in full sentences controlling secretions well Neck: Normal inspection.? Neck supple.? CVS: Normal heart rate and rhythm.? Pulses normal.? Respiratory: No respiratory distress.? Breath sounds normal.? Abdomen: Soft and nontender.? Skin: Skin warm and dry.? Normal skin color.? Normal skin turgor.? Extremities: No lower extremity edema.? No calf ttp. 5/5 strength to bilateral upper and lower extremities Neuro: Oriented X 3.? No motor deficit.? No sensory deficit. CN 2-12 intact Course Course Course Narrative: This is a rapid medical exam: Additional HPI, ROS, PE not included below will be deferred to primary provider. Patient is a 33-year-old female with history of DM, epilepsy, cholecystectomy presenting to the ED with complaint of sore throat, body aches, fever, shortness of breath and cough since Sunday night. Plan:viral and strep swabs Reevaluation(s) Reevaluation #1: Flu, COVID, RSV negative. Strep negative. Clinical exam with very low suspicion for strep throat therefore will not treat for strep pharyngitis. This is likely viral in origin. Educated patient on diagnosis and treatment plan, answered all question, patient verbalizes understanding. At this time patient will be discharged home, advised to return with new or worsening symptoms. Educated on worrisome signs and symptoms and when to return. At this time I feel comfortable discharge home. Time: 18:39 Medical Decision Making Medical Decision Making MDM Narrative: 33-year-old female presents with viral symptoms for the past 3 days. Physical exam benign This is likely upper respiratory infection versus flu versus COVID versus RSV. Unlikely strep throat, retropharyngeal abscess, peritonsillar abscess, threat to airway, epiglottitis, pulmonary embolism, acute respiratory distress, pneumonia, ACS. I do not suspect metabolic derangements Plan at this time viral testing Differential Diagnosis Differential Diagnoses: The differential diagnosis associated with the presentation includes This is likely upper respiratory infection versus flu versus COVID versus RSV. Unlikely strep throat, retropharyngeal abscess, peritonsillar abscess, threat to airway, epiglottitis, pulmonary embolism, acute respiratory distress, pneumonia, ACS. I do not suspect metabolic derangements Admission/Observation Consideration of admission/observation: Escalation of care including admission/observation considered Unlikely Lab Data MDM Lab Attestation statement: I reviewed the patient's lab results. Labs: Lab Results 12/27/23 Range/Units 17:55 S. pyogenes GrpA YIN Negative (Negative) Independent Historian Clinical information obtained from an independent historian. History obtained from or confirmed by: Other (Daughter) External Record Review External record reviewed: Inpatient record, Office record, Outpatient record, Prior outpatient labs, Prior outpatient radiology, Primary care record and Outside ED record Chronic Conditions Patient?s care impacted by: Other (Diabetes, epilepsy, cholecystectomy) Discharge Plan Discharge Clinical Impression: Upper respiratory infection, Pharyngitis Patient Disposition: Home, Self-Care Instructions: Pharyngitis (ED), Upper Respiratory Infection (ED) Additional Instructions: Take your medications as prescribed. If you were prescribed antibiotics today, it is important that you take your medication to their entirety, do not skip any doses, do not finish them early. Follow-up with your primary care provider this week. Return to the emergency department with new or worsening symptoms. Such as fevers, chills, chest pain, shortness of breath, nausea, vomiting, dizziness, headache, vision changes, lethargy In case of emergency call 911 Prescriptions: New prednisone 20 mg tablet 20 mg PO DAILY 5 Days Qty: 5 0RF benzonatate 100 mg capsule 100 mg PO BID PRN (Reason: cough) Qty: 20 0RF albuterol sulfate 90 mcg/actuation aerosol powdr breath activated 2 inh inhalation Q4-6H PRN (Reason: shortness of breath or wheezing) Qty: 1 0RF No Action divalproex 500 mg tablet extended release 24 hr 1 tab PO BID amoxicillin 500 mg capsule 500 mg PO BID 10 Days Qty: 20 0RF ibuprofen 600 mg tablet 600 mg PO QID PRN (Reason: pain) Qty: 14 0RF ondansetron 4 mg tablet,disintegrating 4 mg PO Q8H PRN (Reason: nausea and vomiting) Qty: 20 0RF metformin 500 mg tablet 500 mg PO BIDWM famotidine 20 mg tablet 20 mg PO BID albuterol sulfate [Ventolin HFA] 90 mcg/actuation HFA aerosol inhaler 2 puff INHALATION Q4-6H PRN (Reason: Shortness Of Breath) loratadine 10 mg tablet 10 mg PO DAILY divalproex 250 mg tablet,delayed release (DR/EC) 250 mg PO DAILY divalproex 250 mg Tablet Extended Release 24 Hr 250 mg PO BEDTIME Qty: 30 0RF benzonatate 200 mg capsule 200 mg PO TID PRN (Reason: cough) Qty: 9 0RF hydrocortisone 2.5 % cream 1 appl topical TID PRN (Reason: itching) Qty: 20 0RF diphenhydramine HCl [Benadryl Allergy] 25 mg tablet 25 mg PO TID PRN (Reason: itching) Qty: 14 0RF budesonide-formoterol [Symbicort] 160-4.5 mcg/actuation HFA aerosol inhaler 2 puff inhalation BID 30 Days Qty: 10.2 11RF
[2023-12-27 18:15] LABS: IDNOW Serial# 58CA691E; Strep A Nucleic Acid Negative (Negative)
[2023-12-27 18:37] LABS: Influenza A PCR NEGATIVE (Negative); Influenza B PCR NEGATIVE (Negative); Resp Syncy Virus RNA Qual PCR NEGATIVE (Negative); SARS COV2 PCR INHOUSE NEGATIVE (Negative)
== END 2023-12-27 19:19 | disposition home or self-care (01) ==
PROVIDERS: Registered Nurse Emergency; Emergency Provider Emergency Medicine; PCP Internal Medicine
DX: J02.9 Acute pharyngitis, unspecified (principal); R50.9 Fever, unspecified; R06.02 Shortness of breath; Z11.52 Encounter for screening for COVID-19; Z20.822 Contact with and (suspected) exposure to COVID-19; Z79.899 Other long term (current) drug therapy
CPT/HCPCS: 0241U; 87651; 99282; 99283

== ENCOUNTER 2024-01-06 18:13 | Emergency (ER) | payer MEDICAID, SELFPAY ==
[2024-01-06 18:30] VITALS: BP 122/53; PULSE 88; RESP 18; TEMP 36.6; O2SAT 98; BMI 31.0
[2024-01-06 19:34] LABS: Basophils Percent Auto 0.4 % (0-2); Eosinophils Percent Auto 0.4 % (0-4); Hematocrit 35.3 % (37.0-47.0); Hemoglobin 12.1 g/dl (12.0-16.0); Imm Gran Abs Auto 0.02 X10*3/uL (0.00-0.03); Imm Gran Pct Auto 0.4 % (0.0-0.4); Lymphocytes Absolute Auto 2.1 X10*3/uL (1.2-4.9); Lymphocytes Percent Auto 40.4 % (20-40); MANUAL DIFF FLAG NO; Mean Corpuscular HGB Conc 34.3 g/dl (31.0-35.0); Mean Corpuscular Hemoglobin 32.7 pg (27.0-33.0); Mean Corpuscular Volume 95.4 fL (80.0-98.0); Mean Platelet Volume 10.2 fL (9.4-12.3); Monocytes Absolute Auto 0.4 X10*3/uL (0.1-1.2); Monocytes Percent Auto 7.9 % (2-11); Neutrophils Absolute Auto 2.6 x10*3/uL (2.0-8.3); Neutrophils Percent Auto 50.5 % (45-73); Platelet Count 251 X10*3/uL (160-400); Red Cell Distribution Width 13.1 % (11.0-16.0); White Blood Count 5.2 X10*3/uL (4.8-10.8)
[2024-01-06 19:35] LABS: Appearance Urine Clear; Color Urine Dark Yellow; Glucose Urine UA Negative (Negative); Leukocyte Esterase Urine Trace (Negative); Nitrite Urine Negative (Negative); PH 7.5 (5.0-9.0); Specific Gravity - Urine >= 1.030 (1.005-1.025); UMIC TRIGGER UACC YES; Urine Blood Negative (Negative); Urine Ketones 15 mg/dL (Negative); Urine Protein Negative (Neg-Trace)
[2024-01-06 19:37] LABS: UPreg QC Valid YES; Urine Pregnancy NEGATIVE (NEGATIVE)
[2024-01-06 19:42] LABS: Bacteria Urine None Seen (None Seen); Hyaline Casts Urine 0-2 /LPF (0-2); WBC Urine 0-5 /HPF (0-5)
[2024-01-06 19:47] LABS: Anion Gap 15 (12-20); Blood Urea Nitrogen 11 mg/dL (9-16); Carbon Dioxide 26 mmol/L (22-29); Chloride 102 mmol/L (96-108); Creatinine Clr Calc Pharmacy 115.3; Estimated Glomerular Filt Rate > 60; Glucose Random 121 mg/dL (60-115); Potassium 3.9 mmol/L (3.3-5.1); Sodium 139 mmol/L (135-145)
[2024-01-06 20:11] LABS: Influenza A PCR NEGATIVE (Negative); Influenza B PCR NEGATIVE (Negative); Resp Syncy Virus RNA Qual PCR NEGATIVE (Negative); SARS COV2 PCR INHOUSE NEGATIVE (Negative)
[2024-01-06 23:32] LABS: COVID-19 Test Negative (Negative); IDNOW Serial# 08D9AD1C; IDNOW Serial# 152EDE1D; Influenza A Negative (Negative); Influenza B2 Negative (Negative)
--- NOTE | 2024-01-06 23:36 | ED.ABDPAIN ---
HPI - Abdominal Pain General Chief Complaint: Abdominal Pain Stated Complaint: Vomiting Time Seen by Provider: 01/06/24 23:24 Source: patient Mode of arrival: ambulatory Limitations: no limitations History of Present Illness HPI narrative: 33-year-old female with a history of diabetes mellitus seizure disorder who presents emergency department for evaluation of nausea vomiting fever and abdominal pain x2 days. Patient states that yesterday she developed a fever as high as 101.4. She had at least 7-8 episodes of vomiting in 2-3 episodes of loose diarrheal stool. There was no blood in the emesis or diarrhea. Patient states she is feeling very weak and fatigued. She does have sharp, pressure-like abdominal pain and she points to her left lower quadrant when asked to localize the pain. She states the pain is 10/10. She has not taking any pain medications at home. She states that she had very little food to eat today 2nd dairy to food making the pain worse. She states that also she has had very little fluid to drink since this makes the pain worse as well. She denied rhinorrhea, sore throat, cough, chest pain or shortness of breath. She denied frequency, urgency or dysuria. Related Data Home Medications Medication Instructions Recorded Confirmed divalproex 500 mg tablet,extended 1 tab PO BID 12/29/22 07/30/23 release 24 hr albuterol sulfate 90 mcg/actuation 2 puff inhalation Q4-6H PRN 07/30/23 07/30/23 aerosol inhaler (Ventolin HFA) Shortness Of Breath divalproex 250 mg tablet,delayed 250 mg PO DAILY 07/30/23 07/30/23 release famotidine 20 mg tablet 20 mg PO BID 07/30/23 07/30/23 loratadine 10 mg tablet 10 mg PO DAILY 07/30/23 07/30/23 metformin 500 mg tablet 500 mg PO BIDWM 07/30/23 07/30/23 Previous Rx's Medication Instructions Recorded budesonide-formoterol HFA 160 2 puff inhalation BID 30 days 07/23/23 mcg-4.5 mcg/actuation aerosol #10.2 grams inhaler (Symbicort) ondansetron 4 mg disintegrating 4 mg PO Q8H PRN nausea and 07/23/23 tablet vomiting #20 tabs divalproex 250 mg tablet,extended 250 mg PO BEDTIME #30 tabs 07/31/23 release 24 hr amoxicillin 500 mg capsule 500 mg PO BID 10 days #20 caps 08/31/23 benzonatate 200 mg capsule 200 mg PO TID PRN cough #9 caps 10/06/23 diphenhydramine HCl 25 mg tablet 25 mg PO TID PRN itching #14 tabs 10/06/23 (Benadryl Allergy) hydrocortisone 2.5 % topical cream 1 appl topical TID PRN itching #20 10/06/23 grams ibuprofen 600 mg tablet 600 mg PO QID PRN pain #14 tabs 12/06/23 albuterol sulfate 90 mcg/actuation 2 inh inhalation Q4-6H PRN 12/27/23 breath activated powder inhaler shortness of breath or wheezing #1 ea benzonatate 100 mg capsule 100 mg PO BID PRN cough #20 caps 12/27/23 prednisone 20 mg tablet 20 mg PO DAILY 5 days #5 tabs 12/27/23 ibuprofen 400 mg tablet 400 mg PO TID PRN fever or pain 01/07/24 #30 tabs ondansetron 4 mg disintegrating 4 mg PO Q6-8H PRN nausea and 01/07/24 tablet vomiting #14 tabs Allergies Allergy/AdvReac Type Severity Reaction Status Date / Time Iodinated Contrast Media Allergy Intermediate Facial Verified 01/06/24 18:30 Swelling clindamycin [CLINDAMYCIN] Allergy Unknown ANAPHYLAXIS Verified 01/06/24 18:30 latex Allergy Itching Verified 01/06/24 18:30 Review of Systems Review of Systems Yes all other systems are reviewed and are negative COUNTS INCLUDE 234 BEDS AT THE [facility] Past Medical History COUNTS INCLUDE 234 BEDS AT THE [facility] Narrative: Social history: She denies tobacco use. She rarely drinks alcohol. She denies drug use. Medical History Chronic allergic rhinitis Otitis media Hypoxia Viral pneumonia Infection due to human metapneumovirus (hMPV) Diabetes mellitus Epilepsy Surgical History Hx of cholecystectomy Social History Social History Household Members: Spouse and Children Housing: Apartment Do you presently have visiting nurse or other home services: No Alcohol intake: current Alcohol intake frequency: holidays/special occasions only Patient Tobacco Use Status: Never used Tobacco Smoked in Last 30 Days: No Use of substances other than those prescribed or required for medical reasons: No Advance Directives: Yes Advance Directives on File: Yes Advance Directives Date on File: 08/17/23 service: No Current occupational status: employed Physical Exam ED Vital Signs: Vital Signs - 24 hr 01/06/24 18:30 01/06/24 23:38 Temperature 98 F 98.7 F Pulse Rate 88 88 Respiratory Rate 18 14 Blood Pressure 122/53 L 117/55 L Pulse Oximetry 98 96 Oxygen Delivery Method Room Air Room Air BMI result Body Mass Index 31.0 Vital signs were normal Exam: General: Awake, alert in no distress Head: Normocephalic, atraumatic EENT: PERRL, Lids normal, sclera normal, conjunctiva normal, nose normal , ears normal, throat without erythema or exudates Neck: Supple, no adenopathy Lung: breath sounds symmetric, no wheezing, rales or rhonchi Chest: symmetric movement, nontender Heart: regular rate and rhythm, normal S1, S2 no murmurs or rubs Abdomen: soft, mild to moderate left-sided abdominal tenderness, no rebound, no voluntary or involuntary guarding, nondistended, normal bowel sounds Back: no vertebral tenderness, no CVAT Extremities: no deformities, moves all extremities symmetrically Neuro: Awake, alert, oriented, normal speech, cranial nerves intact, moves all extremities symmetrically Psych: Pleasant, cooperative Medical Decision Making Medical Decision Making MDM Narrative: 33-year-old female with a history of diabetes mellitus seizure disorder who presents emergency department for evaluation of nausea vomiting fever with constant, sharp, pressure like left lower abdominal pain, 10/10 x2 days with very poor food and fluid intake secondary to worsening pain. Vital signs were normal. Exam did reveal left-sided abdominal tenderness with no rebound or voluntary guarding. Differential diagnosis: ?Includes but is not limited to gastritis, colitis, gastroenteritis, viral syndrome, COVID-19, influenza, RSV nausea, vomiting, electrolyte abnormalities, anemia Following evaluation was ordered: CBC, BMP, urinalysis, urine test, COVID-19, influenza, RSV Patient was initially treated with the following: IV insert, Toradol 30 mg IV, Zofran 4 mg IV, normal saline x1 L Course: 02:11 My interpretation patient's laboratory evaluation is as follows: CBC was normal. BMP was normal except for an elevated glucose of 121. Urinalysis revealed an elevated specific gravity consistent with dehydration. Microscopic was not consistent with urinary tract infection. Urine test was negative. Patient's presentation and evaluation is most consistent with viral syndrome and dehydration. Patient is feeling significantly better after the above treatment. Patient will be discharged home with prescriptions for Zofran 4 mg ODT every 6-8 hours and ibuprofen 400 mg 3 times a day as needed for pain. She was given printed and verbal instructions and discharged home. Lab Data 01/06/24 19:27 01/06/24 19:27 Labs: Lab Results 01/06/24 01/06/24 Range/Units 19:27 23:05 WBC 5.2 (4.8-10.8) X10*3/uL RBC 3.70 L (4.20-5.50) X10*6/uL Hgb 12.1 (12.0-16.0) g/dl Hct 35.3 L (37.0-47.0) % MCV 95.4 (80.0-98.0) fL MCH 32.7 (27.0-33.0) pg MCHC 34.3 (31.0-35.0) g/dl RDW 13.1 (11.0-16.0) % Plt Count 251 (160-400) X10*3/uL MPV 10.2 (9.4-12.3) fL Immature Gran % (Auto) 0.4 (0.0-0.4) % Neut % (Auto) 50.5 (45-73) % Lymph % (Auto) 40.4 H (20-40) % [place] % (Auto) 7.9 (2-11) % Eos % (Auto) 0.4 (0-4) % Baso % (Auto) 0.4 (0-2) % Lymph # (Auto) 2.1 (1.2-4.9) X10*3/uL [place] # (Auto) 0.4 (0.1-1.2) X10*3/uL Eos # (Auto) 0.0 (0.0-0.4) X10*3/uL Baso # (Auto) 0.0 (0.0-0.2) X10*3/uL Abs Immat Gran (auto) 0.02 (0.00-0.03) X10*3/uL Absolute Neuts (auto) 2.6 (2.0-8.3) x10*3/uL Absolute Nucleated RBC 0.000 (0.0-0.012) X10*3/uL Nucleated RBC % (auto) 0.0 (0.0-0.2) /100WBC Sodium 139 (135-145) mmol/L Potassium 3.9 (3.3-5.1) mmol/L Chloride 102 (96-108) mmol/L Carbon Dioxide 26 (22-29) mmol/L Anion Gap 15 (12-20) BUN 11 (9-16) mg/dL Creatinine 0.62 (0.5-1.4) mg/dL Estim Creat Clear Calc 115.3 Estimated GFR > 60 Random Glucose 121 H (60-115) mg/dL Calcium 9.0 (8.4-10.2) mg/dL Urine Color Dark Yellow Urine Appearance Clear Urine pH 7.5 (5.0-9.0) Ur Specific [place] >= 1.030 H (1.005-1.025) Urine Protein Negative (Neg-Trace) mg/dL Urine Glucose (UA) Negative (Negative) mg/dL Urine Ketones 15 (Negative) mg/dL Urine Blood Negative (Negative) Urine Nitrite Negative (Negative) Ur Leukocyte Esterase Trace H (Negative) Urine RBC 3-5 H (0-2) /HPF Urine WBC 0-5 (0-5) /HPF Ur Squamous Epith Cells 6-10 (0-2) /HPF Urine Bacteria None Seen (None Seen) Hyaline Casts 0-2 (0-2) /LPF Urine Test NEGATIVE (NEGATIVE) COVID-19 (TOÑA) Negative (Negative) COVID-19 Clin Com See Note Influenza Type A (YIN) Negative (Negative) Influenza Type A (PCR) NEGATIVE (Negative) Influenza Type B (YIN) Negative (Negative) Influenza Type B (PCR) NEGATIVE (Negative) Influenza A & B Note See Note RSV RNA Qual (PCR) NEGATIVE (Negative) SARS-CoV-2 RNA (RT-PCR) NEGATIVE (Negative) Medications Administered Discontinued Medications Generic Name Dose Route Start Last Admin Trade Name Freq PRN Reason Stop Dose Admin Sodium Chloride 1,000 mls @ 999 mls/hr 01/06/24 23:36 01/07/24 00:22 Ns IV 01/07/24 00:36 999 mls/hr .Q1H1M STA Administration Ketorolac Tromethamine 30 mg 01/06/24 23:36 01/07/24 00:20 Ketorolac Tromethamine 15 Mg/Ml Vial IVPUSH 01/06/24 23:37 30 mg ONCE STA Administration Ondansetron HCl 4 mg 01/06/24 23:36 01/07/24 00:20 Ondansetron Hcl 4 Mg/2 Ml Vial IVPUSH 01/06/24 23:37 4 mg ONCE ONE Administration Discharge Plan Discharge Clinical Impression: Viral syndrome, Acute dehydration Abdominal pain Qualifiers: Abdominal location: epigastric Qualified Code(s): R10.13 - Epigastric pain Nausea & vomiting Qualifiers: Vomiting type: unspecified Qualified Code(s): R11.2 - Nausea with vomiting, unspecified Patient Disposition: Home, Self-Care Instructions: Viral Syndrome (ED) Additional Instructions: Your laboratory evaluation was unremarkable. Your symptoms and exam are consistent with a viral infection which is giving you abdominal pain, nausea and vomiting. You also or dehydrated from not eating and drinking enough over the past several days. Take Zofran ODT 4 mg pills, 1 pill dissolved in your mouth every 8 hours as needed for nausea and vomiting. Take ibuprofen 400 mg pills, 1 pills every 6 hours as needed for pain or fever. Also keep taking your Tylenol (acetaminophen) 500 mg pills, 2 pills every 6 hours as needed for pain or fever. For the next 24 hours, stay on a FRANCINE diet (bananas, rice, applesauce, tea and toast). Follow-up with your doctor in 2 days. Please return to the emergency department if your symptoms get worse or if you develop any symptoms that are concerning to you. Prescriptions: New ibuprofen 400 mg tablet 400 mg PO TID PRN (Reason: fever or pain) Qty: 30 0RF ondansetron 4 mg tablet,disintegrating 4 mg PO Q6-8H PRN (Reason: nausea and vomiting) Qty: 14 0RF No Action divalproex 500 mg tablet extended release 24 hr 1 tab PO BID amoxicillin 500 mg capsule 500 mg PO BID 10 Days Qty: 20 0RF ibuprofen 600 mg tablet 600 mg PO QID PRN (Reason: pain) Qty: 14 0RF prednisone 20 mg tablet 20 mg PO DAILY 5 Days Qty: 5 0RF benzonatate 100 mg capsule 100 mg PO BID PRN (Reason: cough) Qty: 20 0RF albuterol sulfate 90 mcg/actuation aerosol powdr breath activated 2 inh inhalation Q4-6H PRN (Reason: shortness of breath or wheezing) Qty: 1 0RF ondansetron 4 mg tablet,disintegrating 4 mg PO Q8H PRN (Reason: nausea and vomiting) Qty: 20 0RF metformin 500 mg tablet 500 mg PO BIDWM famotidine 20 mg tablet 20 mg PO BID albuterol sulfate [Ventolin HFA] 90 mcg/actuation HFA aerosol inhaler 2 puff INHALATION Q4-6H PRN (Reason: Shortness Of Breath) loratadine 10 mg tablet 10 mg PO DAILY divalproex 250 mg tablet,delayed release (DR/EC) 250 mg PO DAILY divalproex 250 mg Tablet Extended Release 24 Hr 250 mg PO BEDTIME Qty: 30 0RF benzonatate 200 mg capsule 200 mg PO TID PRN (Reason: cough) Qty: 9 0RF hydrocortisone 2.5 % cream 1 appl topical TID PRN (Reason: itching) Qty: 20 0RF diphenhydramine HCl [Benadryl Allergy] 25 mg tablet 25 mg PO TID PRN (Reason: itching) Qty: 14 0RF budesonide-formoterol [Symbicort] 160-4.5 mcg/actuation HFA aerosol inhaler 2 puff inhalation BID 30 Days Qty: 10.2 11RF
[2024-01-06 23:38] VITALS: BP 117/55; PULSE 88; RESP 14; TEMP 37.1; O2SAT 96
[2024-01-07] MEDS: Ketorolac Tromethamine 15 MG/ML VIAL 30 MG IVPUSH (00:20)
[2024-01-07] MEDS: ondansetron HCL 4 MG/2 ML VIAL IVPUSH (00:20)
[2024-01-07] MEDS: 0.9 % Sodium Chloride 1,000 ML 999 ML IV (00:22)
--- NOTE | 2024-01-07 00:26 | PC.NURSE ---
Pt medicated per dec. Plan of care ongoing.
== END 2024-01-07 02:42 | disposition home or self-care (01) ==
PROVIDERS: Emergency Provider Emergency Medicine Emergency Medical Services; PCP Internal Medicine
DX: B34.9 Viral infection, unspecified (principal); E86.0 Dehydration; R11.2 Nausea with vomiting, unspecified; R50.9 Fever, unspecified; R10.9 Unspecified abdominal pain; Z11.52 Encounter for screening for COVID-19; Z20.822 Contact with and (suspected) exposure to COVID-19; Z79.899 Other long term (current) drug therapy
CPT/HCPCS: 0241U; 36415; 80048; 81001; 81025; 85025; 87502; 87635; 96374; 96375; 99285; J1885; J2405

== ENCOUNTER 2024-02-09 22:03 | Emergency (ER) | payer MEDICAID, SELFPAY ==
--- NOTE | 2024-02-09 | ECG_ITS ---
Test Reason : seizure Blood Pressure : / mmHG Vent. Rate : 082 BPM Atrial Rate : 082 BPM P-R Int : 110 ms QRS Dur : 090 ms QT Int : 362 ms P-R-T Axes : 040 049 018 degrees QTc Int : 422 ms Sinus rhythm with short NM Otherwise normal ECG When compared with ECG of 15-NOV-2023 20:41, No significant change was found Referred By: Eamon Workman Electronically Signed By:Dmitry Morales
[2024-02-09 22:06] VITALS: BP 151/67; PULSE 97; RESP 19; TEMP 37.2; O2SAT 99; BMI 31.6
[2024-02-09 22:21] VITALS: BP 149/53; PULSE 88; RESP 15; TEMP 37; O2SAT 97
--- NOTE | 2024-02-09 22:31 | ED_ITS ---
HPI - General Adult General Chief complaint: Seizure Stated complaint: seizure Time Seen by Provider: 02/09/24 22:15 History of Present Illness HPI narrative: The patient is a 33-year-old female with a history of seizures. According to neurology notes she has a history of epileptic and nonepileptic seizures. She is on valproic acid. Apparently she had seizure-like activity starting at around 8PM this evening. Family ultimately brought her to the emergency room by private vehicle. The patient lives with her . Apparently her does not drive. Her called her brother who drove her to the emergency room. The patient was later able to give additional history. She says that she was studying this afternoon at around 4PM when she started to have a shaking episode. She says that her helped calm her down. Later in the evening she took her regular dose of valproic acid at around 8PM but sometime after that she had a recurrence of shaking and ultimately her called her brother who drove her to the emergency room. Related Data Home Medications ?Medication ?Instructions ?Recorded ?Confirmed divalproex 500 mg tablet,extended 1 tab PO BID 12/29/22 07/30/23 release 24 hr albuterol sulfate 90 mcg/actuation 2 puff inhalation Q4-6H PRN 07/30/23 07/30/23 aerosol inhaler (Ventolin HFA) Shortness Of Breath divalproex 250 mg tablet,delayed 250 mg PO DAILY 07/30/23 07/30/23 release famotidine 20 mg tablet 20 mg PO BID 07/30/23 07/30/23 loratadine 10 mg tablet 10 mg PO DAILY 07/30/23 07/30/23 metformin 500 mg tablet 500 mg PO BIDWM 07/30/23 07/30/23 Previous Rx's ?Medication ?Instructions ?Recorded budesonide-formoterol HFA 160 2 puff inhalation BID 30 days 07/23/23 mcg-4.5 mcg/actuation aerosol #10.2 grams inhaler (Symbicort) ondansetron 4 mg disintegrating 4 mg PO Q8H PRN nausea and 07/23/23 tablet vomiting #20 tabs divalproex 250 mg tablet,extended 250 mg PO BEDTIME #30 tabs 07/31/23 release 24 hr amoxicillin 500 mg capsule 500 mg PO BID 10 days #20 caps 08/31/23 benzonatate 200 mg capsule 200 mg PO TID PRN cough #9 caps 10/06/23 diphenhydramine HCl 25 mg tablet 25 mg PO TID PRN itching #14 tabs 10/06/23 (Benadryl Allergy) hydrocortisone 2.5 % topical cream 1 appl topical TID PRN itching #20 10/06/23 grams ibuprofen 600 mg tablet 600 mg PO QID PRN pain #14 tabs 12/06/23 albuterol sulfate 90 mcg/actuation 2 inh inhalation Q4-6H PRN 12/27/23 breath activated powder inhaler shortness of breath or wheezing #1 ea benzonatate 100 mg capsule 100 mg PO BID PRN cough #20 caps 12/27/23 prednisone 20 mg tablet 20 mg PO DAILY 5 days #5 tabs 12/27/23 ibuprofen 400 mg tablet 400 mg PO TID PRN fever or pain 01/07/24 #30 tabs ondansetron 4 mg disintegrating 4 mg PO Q6-8H PRN nausea and 01/07/24 tablet vomiting #14 tabs Allergies Allergy/AdvReac Type Severity Reaction Status Date / Time Iodinated Contrast Media Allergy Intermediate Facial Verified 02/09/24 22:15 Swelling clindamycin [CLINDAMYCIN] Allergy Unknown ANAPHYLAXIS Verified 02/09/24 22:15 latex Allergy Itching Verified 02/09/24 22:15 Review of Systems 2 Review of Systems: Yes all other systems are reviewed and are negative PMFSH Past Medical History Medical History Chronic allergic rhinitis Otitis media Hypoxia Viral pneumonia Infection due to human metapneumovirus (hMPV) Diabetes mellitus Epilepsy Surgical History Hx of cholecystectomy Social History Social History Household Members: Spouse and Children Housing: Apartment Do you presently have visiting nurse or other home services: No Alcohol intake: current Alcohol intake frequency: holidays/special occasions only Patient Tobacco Use Status: Never used Tobacco Advance Directives: Yes Advance Directives on File: Yes Advance Directives Date on File: 08/17/23 service: No Current occupational status: employed Physical Exam ED Vital Signs: Vital Signs - 24 hr 02/09/24 22:06 02/09/24 22:21 02/10/24 00:48 Temperature 99.0 F 98.6 F 98.4 F Pulse Rate 97 88 89 Respiratory Rate 19 15 20 Blood Pressure 151/67 H 149/53 H 124/74 Pulse Oximetry 99 97 100 Oxygen Delivery Method Room Air Room Air Room Air BMI result Body Mass Index 31.6 Const Other: The patient was brought immediately back from triage on a stretcher. She was exhibiting whole-body shaking. However despite the whole-body shaking she made eye contact and when I applied painful pressure to fingernail she clearly responded appropriately by looking at me more intently and trying to pull her hand away. She was not speaking but seemed aware. HENMT Other: Face is symmetrical. No tongue biting. Eyes Other: Pupils are round and equal, extraocular movements are intact, conjunctivae are clear Neck Other: Neck was supple Resp Effort & Inspection: normal respiratory effort Auscultation: clear to auscultation bilaterally Cardio Rate: regular rate Rhythm: regular rhythm Heart sounds: S1 normal heart sound present and S2 normal heart sound present GI Other: Abdomen is soft and nontender Skin Other: Skin is dry and unremarkable Neuro Other: The patient initially exhibited whole-body shaking activity which potentially could represent seizure activity but she seemed to make eye contact although she was not speaking. She then withdrew to painful stimuli. Her whole-body shaking stopped when she sat up and retched into a vomit bag. There was no typical postictal phase of any kind. Ultimately she was verbal with normal speech, face was symmetrical, eye movements intact, moving her extremities normally, gait normal. Extrem Other: No peripheral edema Medications Administered Discontinued Medications Generic Name Dose Route Start Last Admin Trade Name Freq PRN Reason Stop Dose Admin Sodium Chloride 1,000 mls @ 999 mls/hr 02/09/24 22:30 02/10/24 00:48 Ns IV 02/09/24 23:30 Infused .Q1H1M NAVEEN Infusion Ketorolac Tromethamine 15 mg 02/09/24 22:52 02/09/24 23:01 Ketorolac Tromethamine 15 Mg/Ml Vial IVPUSH 02/09/24 22:53 15 mg ONCE ONE Administration Lorazepam 1 mg 02/09/24 22:36 02/09/24 22:41 Lorazepam 2 Mg/Ml Vial IVPUSH 02/09/24 22:37 1 mg ONCE ONE Administration Ondansetron HCl 4 mg 02/09/24 22:52 02/09/24 23:01 Ondansetron Hcl 4 Mg/2 Ml Vial IVPUSH 02/09/24 22:53 4 mg ONCE ONE Administration Medical Decision Making Medical Decision Making MDM Narrative: The patient arrived by private vehicle apparently exhibiting seizure-like activity. She was brought back immediately and seen. Her blood sugar was normal. Whole-body shaking was present but did not really seem like a typical grand mal seizure. She seemed aware and made eye contact and withdrew to painful stimuli. Not long after her whole-body shaking activity stopped and there was no typical postictal phase. Nevertheless she was given a mg of IV lorazepam and IV fluids. She was observed. A Depakote level was checked which was 97. During a period of observation she remained free of any additional seizure-like activity or body shaking. She had a nontoxic demeanor and I felt she could be discharged. Her blood work, which did show an elevated lactate, did not show any significant acidosis. Her carbon dioxide was 21. Her anion gap was 15. Her venous pH was 7.43. Lab Data 02/09/24 22:28 02/09/24 22:23 Labs: Lab Results 02/09/24 02/09/24 02/09/24 Range/Units 22:23 22:28 22:39 WBC 9.5 (4.8-10.8) X10*3/uL RBC 3.61 L (4.20-5.50) X10*6/uL Hgb 12.0 (12.0-16.0) g/dl Hct 34.2 L (37.0-47.0) % MCV 94.7 (80.0-98.0) fL MCH 33.2 H (27.0-33.0) pg MCHC 35.1 H (31.0-35.0) g/dl RDW 13.1 (11.0-16.0) % Plt Count 184 D (160-400) X10*3/uL MPV 11.3 (9.4-12.3) fL Immature Gran % (Auto) 0.2 (0.0-0.4) % Neut % (Auto) 48.2 (45-73) % Lymph % (Auto) 43.1 H (20-40) % [place] % (Auto) 8.0 (2-11) % Eos % (Auto) 0.2 (0-4) % Baso % (Auto) 0.3 (0-2) % Lymph # (Auto) 4.1 (1.2-4.9) X10*3/uL [place] # (Auto) 0.8 (0.1-1.2) X10*3/uL Eos # (Auto) 0.0 (0.0-0.4) X10*3/uL Baso # (Auto) 0.0 (0.0-0.2) X10*3/uL Abs Immat Gran (auto) 0.02 (0.00-0.03) X10*3/uL Absolute Neuts (auto) 4.6 (2.0-8.3) x10*3/uL Absolute Nucleated RBC 0.000 (0.0-0.012) X10*3/uL Nucleated RBC % (auto) 0.0 (0.0-0.2) /100WBC VBG pH 7.43 (7.32-7.43) VBG pCO2 32 mmHg VBG pO2 79 mmHg VBG HCO3 21 L (22-26) mmol/L VBG O2 Saturation 96.0 % VBG Base Excess -1.6 mmol/L Sodium 136 (135-145) mmol/L Potassium 4.0 (3.3-5.1) mmol/L Chloride 104 (96-108) mmol/L Carbon Dioxide 21 L (22-29) mmol/L Anion Gap 15 (12-20) BUN 8 L (9-16) mg/dL Creatinine 0.58 (0.5-1.4) mg/dL Estim Creat Clear Calc 124.5 Estimated GFR > 60 Random Glucose 104 (60-115) mg/dL Lactic Acid 4.8 H* (0.5-2.0) mmol/L Calcium 9.1 (8.4-10.2) mg/dL Magnesium 1.7 (1.6-2.6) mg/dL Total Bilirubin 0.3 (0.0-1.0) mg/dL Direct Bilirubin 0.1 (0.0-0.5) mg/dL AST 26 (5-31) U/L ALT 28 (0-31) U/L Alkaline Phosphatase 56 (39-117) U/L C-Reactive Protein 0.24 (< or = 0.50) mg/dL Total Protein 7.4 (6.5-8.0) g/dL Albumin 3.9 (3.5-5.0) g/dL Beta HCG, Quant < 2 mIU/mL Urine Color Urine Appearance Urine pH (5.0-9.0) Ur Specific [place] (1.005-1.025) Urine Protein (Neg-Trace) mg/dL Urine Glucose (UA) (Negative) mg/dL Urine Ketones (Negative) mg/dL Urine Blood (Negative) Urine Nitrite (Negative) Ur Leukocyte Esterase (Negative) Valproic Acid 97.3 (50.0-100.0) mcg/mL Influenza Type A (PCR) (Negative) Influenza Type B (PCR) (Negative) RSV RNA Qual (PCR) (Negative) SARS-CoV-2 RNA (RT-PCR) (Negative) 02/09/24 02/09/24 Range/Units 23:11 Unknown WBC (4.8-10.8) X10*3/uL RBC (4.20-5.50) X10*6/uL Hgb (12.0-16.0) g/dl Hct (37.0-47.0) % MCV (80.0-98.0) fL MCH (27.0-33.0) pg MCHC (31.0-35.0) g/dl RDW (11.0-16.0) % Plt Count (160-400) X10*3/uL MPV (9.4-12.3) fL Immature Gran % (Auto) (0.0-0.4) % Neut % (Auto) (45-73) % Lymph % (Auto) (20-40) % [place] % (Auto) (2-11) % Eos % (Auto) (0-4) % Baso % (Auto) (0-2) % Lymph # (Auto) (1.2-4.9) X10*3/uL [place] # (Auto) (0.1-1.2) X10*3/uL Eos # (Auto) (0.0-0.4) X10*3/uL Baso # (Auto) (0.0-0.2) X10*3/uL Abs Immat Gran (auto) (0.00-0.03) X10*3/uL Absolute Neuts (auto) (2.0-8.3) x10*3/uL Absolute Nucleated RBC (0.0-0.012) X10*3/uL Nucleated RBC % (auto) (0.0-0.2) /100WBC VBG pH (7.32-7.43) VBG pCO2 mmHg VBG pO2 mmHg VBG HCO3 (22-26) mmol/L VBG O2 Saturation % VBG Base Excess mmol/L Sodium (135-145) mmol/L Potassium (3.3-5.1) mmol/L Chloride (96-108) mmol/L Carbon Dioxide (22-29) mmol/L Anion Gap (12-20) BUN (9-16) mg/dL Creatinine (0.5-1.4) mg/dL Estim Creat Clear Calc Estimated GFR Random Glucose (60-115) mg/dL Lactic Acid (0.5-2.0) mmol/L Calcium (8.4-10.2) mg/dL Magnesium (1.6-2.6) mg/dL Total Bilirubin (0.0-1.0) mg/dL Direct Bilirubin (0.0-0.5) mg/dL AST (5-31) U/L ALT (0-31) U/L Alkaline Phosphatase (39-117) U/L C-Reactive Protein (< or = 0.50) mg/dL Total Protein (6.5-8.0) g/dL Albumin (3.5-5.0) g/dL Beta HCG, Quant mIU/mL Urine Color Yellow Urine Appearance Cloudy Urine pH 6.5 (5.0-9.0) Ur Specific [place] 1.020 (1.005-1.025) Urine Protein Negative (Neg-Trace) mg/dL Urine Glucose (UA) Negative (Negative) mg/dL Urine Ketones Trace (Negative) mg/dL Urine Blood Negative (Negative) Urine Nitrite Negative (Negative) Ur Leukocyte Esterase Negative (Negative) Valproic Acid (50.0-100.0) mcg/mL Influenza Type A (PCR) NEGATIVE (Negative) Influenza Type B (PCR) NEGATIVE (Negative) RSV RNA Qual (PCR) NEGATIVE (Negative) SARS-CoV-2 RNA (RT-PCR) NEGATIVE (Negative) Discharge Plan Discharge Clinical Impression: Seizure-like activity Patient Disposition: Home, Self-Care Additional Instructions: Please continue your regular medications. Please follow up with your neurologist. You can try calling on Sunday and explained that you had an episode that brought you to the emergency room. Perhaps you can get an earlier appointment. Otherwise rest and take it easy tonight. Return to the emergency room if worse. Prescriptions: No Action divalproex 500 mg tablet extended release 24 hr 1 tab PO BID amoxicillin 500 mg capsule 500 mg PO BID 10 Days Qty: 20 0RF ibuprofen 600 mg tablet 600 mg PO QID PRN (Reason: pain) Qty: 14 0RF prednisone 20 mg tablet 20 mg PO DAILY 5 Days Qty: 5 0RF benzonatate 100 mg capsule 100 mg PO BID PRN (Reason: cough) Qty: 20 0RF albuterol sulfate 90 mcg/actuation aerosol powdr breath activated 2 inh inhalation Q4-6H PRN (Reason: shortness of breath or wheezing) Qty: 1 0RF ibuprofen 400 mg tablet 400 mg PO TID PRN (Reason: fever or pain) Qty: 30 0RF ondansetron 4 mg tablet,disintegrating 4 mg PO Q6-8H PRN (Reason: nausea and vomiting) Qty: 14 0RF ondansetron 4 mg tablet,disintegrating 4 mg PO Q8H PRN (Reason: nausea and vomiting) Qty: 20 0RF metformin 500 mg tablet 500 mg PO BIDWM famotidine 20 mg tablet 20 mg PO BID albuterol sulfate [Ventolin HFA] 90 mcg/actuation HFA aerosol inhaler 2 puff INHALATION Q4-6H PRN (Reason: Shortness Of Breath) loratadine 10 mg tablet 10 mg PO DAILY divalproex 250 mg tablet,delayed release (DR/EC) 250 mg PO DAILY divalproex 250 mg Tablet Extended Release 24 Hr 250 mg PO BEDTIME Qty: 30 0RF benzonatate 200 mg capsule 200 mg PO TID PRN (Reason: cough) Qty: 9 0RF hydrocortisone 2.5 % cream 1 appl topical TID PRN (Reason: itching) Qty: 20 0RF diphenhydramine HCl [Benadryl Allergy] 25 mg tablet 25 mg PO TID PRN (Reason: itching) Qty: 14 0RF budesonide-formoterol [Symbicort] 160-4.5 mcg/actuation HFA aerosol inhaler 2 puff inhalation BID 30 Days Qty: 10.2 11RF Referrals: Gris Willingham MD [Physician] - (seizure-like activity) Interventions: ED Discharge Assessment Last Done: 02/10/24 00:48 Discharge Date/Time: 02/10/24 00:51 Print Language: Welsh
[2024-02-09 22:40] LABS: MANUAL DIFF FLAG NO
[2024-02-09 22:41] LABS: Basophils Percent Auto 0.3 % (0-2); Eosinophils Percent Auto 0.2 % (0-4); Hematocrit 34.2 % (37.0-47.0); Imm Gran Abs Auto 0.02 X10*3/uL (0.00-0.03); Imm Gran Pct Auto 0.2 % (0.0-0.4); Lymphocytes Absolute Auto 4.1 X10*3/uL (1.2-4.9); Lymphocytes Percent Auto 43.1 % (20-40); Mean Corpuscular HGB Conc 35.1 g/dl (31.0-35.0); Mean Corpuscular Hemoglobin 33.2 pg (27.0-33.0); Mean Corpuscular Volume 94.7 fL (80.0-98.0); Mean Platelet Volume 11.3 fL (9.4-12.3); Monocytes Absolute Auto 0.8 X10*3/uL (0.1-1.2); Neutrophils Absolute Auto 4.6 x10*3/uL (2.0-8.3); Neutrophils Percent Auto 48.2 % (45-73); Platelet Count 184 X10*3/uL (160-400); Red Blood Count 3.61 X10*6/uL (4.20-5.50); Red Cell Distribution Width 13.1 % (11.0-16.0); White Blood Count 9.5 X10*3/uL (4.8-10.8)
[2024-02-09] MEDS: 0.9 % Sodium Chloride 1,000 ML 999 ML IV (22:41)
[2024-02-09] MEDS: LORazepam 2 MG/ML VIAL 1 MG IVPUSH (22:41)
[2024-02-09 22:46] LABS: VBG Base Excess -1.6 mmol/L; VBG HCO3 21 mmol/L (22-26); VBG pCO2 32 mmHg; VBG pH 7.43 (7.32-7.43); VBG pO2 79 mmHg
--- NOTE | 2024-02-09 22:48 | PC.NURSE ---
Pt ca&ox3, no signs of distress. Pt medicated per mar. Plan of care ongoing.
[2024-02-09 22:51] LABS: Venous Blood Gas Refer to POC result
[2024-02-09 22:53] LABS: Valproate 97.3 mcg/mL (50.0-100.0)
[2024-02-09 22:54] LABS: Lactic Acid 4.8 mmol/L (0.5-2.0)
[2024-02-09 22:57] LABS: Alanine Aminotransferase 28 U/L (0-31); Albumin Level 3.9 g/dL (3.5-5.0); Alkaline Phosphatase 56 U/L (39-117); Anion Gap 15 (12-20); Aspartate Amino Transferase 26 U/L (5-31); Bilirubin Direct 0.1 mg/dL (0.0-0.5); Bilirubin Total 0.3 mg/dL (0.0-1.0); Blood Urea Nitrogen 8 mg/dL (9-16); C Reactive Protein 0.24 mg/dL (< or = 0.50); Calcium 9.1 mg/dL (8.4-10.2); Carbon Dioxide 21 mmol/L (22-29); Chloride 104 mmol/L (96-108); Creatinine Clr Calc Pharmacy 124.5; Estimated Glomerular Filt Rate > 60; Glucose Random 104 mg/dL (60-115); Magnesium 1.7 mg/dL (1.6-2.6); Sodium 136 mmol/L (135-145); Total Protein 7.4 g/dL (6.5-8.0)
[2024-02-09] MEDS: ondansetron HCL 4 MG/2 ML VIAL IVPUSH (23:01)
[2024-02-09] MEDS: Ketorolac Tromethamine 15 MG/ML VIAL IVPUSH (23:01)
[2024-02-09 23:18] LABS: Appearance Urine Cloudy; Color Urine Yellow; Glucose Urine UA Negative (Negative); Leukocyte Esterase Urine Negative (Negative); Nitrite Urine Negative (Negative); PH 6.5 (5.0-9.0); Urine Blood Negative (Negative); Urine Ketones Trace mg/dL (Negative); Urine Protein Negative (Neg-Trace)
[2024-02-09 23:41] LABS: Influenza A PCR NEGATIVE (Negative); Influenza B PCR NEGATIVE (Negative); Resp Syncy Virus RNA Qual PCR NEGATIVE (Negative); SARS COV2 PCR INHOUSE NEGATIVE (Negative)
[2024-02-10 00:37] LABS: Reflex Lactate? Lactic Acid Added
[2024-02-10 00:45] LABS: HCG Quantitative < 2 mIU/mL
[2024-02-10 00:48] VITALS: BP 124/74; PULSE 89; RESP 20; TEMP 36.9; O2SAT 100
[2024-02-12 07:20] LABS: Glucose, Whole Blood 92 mg/dL (60-115)
== END 2024-02-10 00:51 | disposition home or self-care (01) ==
PROVIDERS: Emergency Provider Emergency Medicine
DX: R56.9 Unspecified convulsions (principal); R94.31 Abnormal electrocardiogram [ECG] [EKG]; R11.0 Nausea; Z11.52 Encounter for screening for COVID-19; Z20.822 Contact with and (suspected) exposure to COVID-19; Z79.899 Other long term (current) drug therapy
CPT/HCPCS: 0241U; 36415; 80048; 80076; 80164; 81003; 82803; 82947; 83605; 83735; 84702; 85025; 86140; 93005; 96361; 96374; 96375; 99284; 99285; J1885; J2060; J2405

== ENCOUNTER → 2024-02-09 22:15 | Outpatient (BNV) | payer MEDICAID, SELFPAY | PROVIDERS: Emergency Provider Emergency Medicine; Visit Provider Internal Medicine Cardiovascular Disease | DX: I45.6 Pre-excitation syndrome (principal) | CPT/HCPCS: 93010 ==

== ENCOUNTER 2024-03-11 13:41 | Emergency (ER) | payer MEDICAID, SELFPAY ==
--- NOTE | 2024-03-11 13:51 | ED_ITS ---
HPI - Seizure General Chief Complaint: Seizure Stated Complaint: WITNESSED SEIZURE,APPROX 8 MINUTES,HX EPILEPSY,PI Time Seen by Provider: 03/11/24 13:42 Source: patient, EMS and old records reviewed Mode of arrival: EMS Limitations: no limitations History of Present Illness HPI Narrative: 33-year-old female with history asthma, non insulin-dependent DM, epileptic and nonepileptic seizure is on Depakote that the patient confirm compliance with her medication last dose with this morning, was witnessed at the social security office having a 7 minute seizure described as tonic-clonic with postictal period, patient had a good sleep last night no sleep deprivation not feeling tired or fatigued. as per EMS report no head injury or neck injury. On arrival to the ED patient started to wake up and able to carry on conversation confirmed that the patient is compliant with her medications. Patient started to twitch her eyes but fully conscious able to still patient stated when she started to have eye twitching is an indication of impending seizure, patient was given 1 mg Ativan in the ED to prevent further seizure. Seizure History: Yes Related Data Home Medications ?Medication ?Instructions ?Recorded ?Confirmed divalproex 500 mg tablet,extended 1 tab PO BID 12/29/22 07/30/23 release 24 hr albuterol sulfate 90 mcg/actuation 2 puff inhalation Q4-6H PRN 07/30/23 07/30/23 aerosol inhaler (Ventolin HFA) Shortness Of Breath divalproex 250 mg tablet,delayed 250 mg PO DAILY 07/30/23 07/30/23 release famotidine 20 mg tablet 20 mg PO BID 07/30/23 07/30/23 loratadine 10 mg tablet 10 mg PO DAILY 07/30/23 07/30/23 metformin 500 mg tablet 500 mg PO BIDWM 07/30/23 07/30/23 Previous Rx's ?Medication ?Instructions ?Recorded budesonide-formoterol HFA 160 2 puff inhalation BID 30 days 07/23/23 mcg-4.5 mcg/actuation aerosol #10.2 grams inhaler (Symbicort) ondansetron 4 mg disintegrating 4 mg PO Q8H PRN nausea and 07/23/23 tablet vomiting #20 tabs divalproex 250 mg tablet,extended 250 mg PO BEDTIME #30 tabs 07/31/23 release 24 hr amoxicillin 500 mg capsule 500 mg PO BID 10 days #20 caps 08/31/23 benzonatate 200 mg capsule 200 mg PO TID PRN cough #9 caps 10/06/23 diphenhydramine HCl 25 mg tablet 25 mg PO TID PRN itching #14 tabs 10/06/23 (Benadryl Allergy) hydrocortisone 2.5 % topical cream 1 appl topical TID PRN itching #20 10/06/23 grams ibuprofen 600 mg tablet 600 mg PO QID PRN pain #14 tabs 12/06/23 albuterol sulfate 90 mcg/actuation 2 inh inhalation Q4-6H PRN 12/27/23 breath activated powder inhaler shortness of breath or wheezing #1 ea benzonatate 100 mg capsule 100 mg PO BID PRN cough #20 caps 12/27/23 prednisone 20 mg tablet 20 mg PO DAILY 5 days #5 tabs 12/27/23 ibuprofen 400 mg tablet 400 mg PO TID PRN fever or pain 01/07/24 #30 tabs ondansetron 4 mg disintegrating 4 mg PO Q6-8H PRN nausea and 01/07/24 tablet vomiting #14 tabs Allergies Allergy/AdvReac Type Severity Reaction Status Date / Time Iodinated Contrast Media Allergy Intermediate Facial Verified 03/11/24 14:05 Swelling clindamycin [CLINDAMYCIN] Allergy Unknown ANAPHYLAXIS Verified 03/11/24 14:05 latex Allergy Itching Verified 03/11/24 14:05 Review of Systems 2 Review of Systems: All other systems are reviewed and are negative Constitutional: Reports as per HPI and Reports no additional constitutional complaints Eyes: Reports as per HPI and Reports no additional eye complaints Reports system reviewed and no additional complaints, except as documented Cardiovascular: Reports as per HPI and Reports no additional cardiovascular complaints Respiratory: Reports as per HPI and Reports no additional respiratory complaints Gastrointestinal: Reports as per HPI and Reports no additional gastrointestinal complaints Genitourinary: Reports no additional female genitourinary complaints Musculoskeletal: Reports no additional musculoskeletal complaints Skin/Breast: Reports system reviewed and no additional complaints, except as docu Psychiatric: Reports no additional psychiatric complaints Endocrine: Reports no additional endocrine complaints Hematologic/Lymphatic: Reports no additional hematologic/lymphatic complaints Allergic/Immunologic: Reports no additional allergic/immunologic complaints Reports system reviewed and no additional complaints, except as documented and Reports Abnormal speech present [facility] Past Medical History Medical History Chronic allergic rhinitis Otitis media Hypoxia Viral pneumonia Infection due to human metapneumovirus (hMPV) Diabetes mellitus Epilepsy Surgical History Hx of cholecystectomy Social History Social History Household Members: Spouse and Children Housing: Apartment Do you presently have visiting nurse or other home services: No Alcohol intake: current Alcohol intake frequency: does not drink Patient Tobacco Use Status: Never used Tobacco Smoked in Last 30 Days: No Use of substances other than those prescribed or required for medical reasons: No Advance Directives: Yes Advance Directives on File: Yes Advance Directives Date on File: 08/17/23 Patient : No service: No Current occupational status: employed Physical Exam 2 Vital Signs: Vital Signs: Last Vital Signs Temp 98.2 F 03/11/24 20:10 Pulse 86 03/11/24 20:10 Resp 18 03/11/24 20:10 BP 108/45 L 03/11/24 20:10 Pulse Ox 99 03/11/24 20:10 O2 Del Method Room Air 03/11/24 20:10 BMI result Body Mass Index 32.0 Vital signs have been reviewed and appear to be correct. Blood pressure elevated. Heart rate normal. Respiratory rate normal. Temperature normal. Oxygen saturation normal. Appearance: Alert. Oriented X3. No acute distress. Head: Normal external exam. Normocephalic. Atraumatic. No Ordoñez signs noted. No raccoon eyes noted Eyes: PERRLA. EOMI. Conjunctiva and sclera normal. Eyelids normal. ENT: TM's Normal. Pharynx normal. Uvula midline. Moist mucous membranes. No trismus noted. No drooling noted. No muffled voice noted. Neck: Normal inspection. Neck supple. FROM. No adenopathy. Thyroid Normal. No meningeal signs. No neck mass noted. CVS: Normal heart rate and rhythm. Heart sound normal. No murmurs noted. Pulses normal throughout. Respiratory: No respiratory distress. Painless inspiration. Breath sounds normal. No wheezes/rales/rhonchi noted. Chest nontender. No accessory muscle usage noted or decreased air movement noted. Abdomen: Soft and nontender. Bowel sounds normal in all 4 quadrants. No distention noted. No organomegaly noted. No visible injury noted. Back: No CVA tenderness. Full range of motion noted. Skin: Skin warm and dry. Normal skin color. Normal skin turgor. No rashes/lesions/lacerations noted. Extremities: No lower extremity edema. Extremities exhibit normal range of motion. Extremities nontender. Neuro: Oriented X 3. Cranial nerve exam: II-XII are grossly intact No motor deficit. No sensory deficit. Reflexes normal. Course Reevaluation(s) Reevaluation #1: Seizure with postictal period, patient was given Ativan in the ED, checking labs and Depakote. Time: 14:00 Reevaluation #2: 33-year-old female with known history of seizure on Depakote, had seizure activity today no head injury, patient is still in postictal period, labs unremarkable was slightly elevated Depakote level. Continue watching the patient until she is fully awake then discharge. Will start the patient on physician observation and close monitoring vital signs. Time: 16:05 Reevaluation #3: patient now is alert, awake, oriented x3, able to provide more history and more coherent, has a family member at the bedside to give her right home, patient was instructed to resume all her medication And follow-up with her neurologist. Time: 20:45 Medications Administered Discontinued Medications Generic Name Dose Route Start Last Admin Trade Name Freq PRN Reason Stop Dose Admin Sodium Chloride 1,000 mls @ 999 mls/hr 03/11/24 13:47 03/11/24 16:04 Ns IV 03/11/24 14:47 Infused .Q1H1M ONE Infusion Lorazepam 1 mg 03/11/24 13:51 03/11/24 13:57 Lorazepam 2 Mg/Ml Vial IVPUSH 03/11/24 13:52 1 mg ONCE ONE Administration Medical Decision Making Differential Diagnosis Differential Diagnoses: The differential diagnosis associated with the presentation includes ( Seizure, postictal period, electrolyte derangement, severe anemia, subtherapeutic Depakote, .) Admission/Observation Consideration of admission/observation: Escalation of care including admission/observation considered Lab Data MDM Lab Attestation statement: I reviewed the patient's lab results. 03/11/24 14:17 03/11/24 14:17 Labs: Lab Results 03/11/24 03/11/24 Range/Units 14:17 18:12 WBC 6.3 (4.8-10.8) X10*3/uL RBC 3.68 L (4.20-5.50) X10*6/uL Hgb 12.3 (12.0-16.0) g/dl Hct 36.6 L (37.0-47.0) % MCV 99.5 H (80.0-98.0) fL MCH 33.4 H (27.0-33.0) pg MCHC 33.6 (31.0-35.0) g/dl RDW 13.1 (11.0-16.0) % Plt Count 193 (160-400) X10*3/uL MPV 11.1 (9.4-12.3) fL Immature Gran % (Auto) 0.3 (0.0-0.4) % Neut % (Auto) 50.8 (45-73) % Lymph % (Auto) 40.9 H (20-40) % [place] % (Auto) 7.2 (2-11) % Eos % (Auto) 0.3 (0-4) % Baso % (Auto) 0.5 (0-2) % Lymph # (Auto) 2.6 (1.2-4.9) X10*3/uL [place] # (Auto) 0.5 (0.1-1.2) X10*3/uL Eos # (Auto) 0.0 (0.0-0.4) X10*3/uL Baso # (Auto) 0.0 (0.0-0.2) X10*3/uL Abs Immat Gran (auto) 0.02 (0.00-0.03) X10*3/uL Absolute Neuts (auto) 3.2 (2.0-8.3) x10*3/uL Absolute Nucleated RBC 0.000 (0.0-0.012) X10*3/uL Nucleated RBC % (auto) 0.0 (0.0-0.2) /100WBC Sodium 139 (135-145) mmol/L Potassium 4.1 (3.3-5.1) mmol/L Chloride 104 (96-108) mmol/L Carbon Dioxide 24 (22-29) mmol/L Anion Gap 15 (12-20) BUN 10 (9-16) mg/dL Creatinine 0.59 (0.5-1.4) mg/dL Estim Creat Clear Calc 123.2 Estimated GFR > 60 Random Glucose 119 H (60-115) mg/dL Calcium 8.6 (8.4-10.2) mg/dL Total Bilirubin 0.3 (0.0-1.0) mg/dL Direct Bilirubin 0.1 (0.0-0.5) mg/dL AST 48 H (5-31) U/L ALT 42 H (0-31) U/L Alkaline Phosphatase 49 (39-117) U/L Total Protein 7.1 (6.5-8.0) g/dL Albumin 3.8 (3.5-5.0) g/dL Lipase 24 (8-78) U/L Beta HCG, Quant < 2 mIU/mL Hold Red Top See Note Urine Color Yellow Urine Appearance Clear Urine pH 5.5 (5.0-9.0) Ur Specific [place] 1.020 (1.005-1.025) Urine Protein Negative (Neg-Trace) mg/dL Urine Glucose (UA) Negative (Negative) mg/dL Urine Ketones Trace (Negative) mg/dL Urine Blood Negative (Negative) Urine Nitrite Negative (Negative) Ur Leukocyte Esterase Negative (Negative) Urine Test NEGATIVE (NEGATIVE) Valproic Acid 103.7 H (50.0-100.0) mcg/mL Chronic Conditions Patient?s care impacted by: Other ( Seizure) Discharge Plan Discharge Clinical Impression: Seizure Patient Disposition: Home, Self-Care Instructions: Recurrent Seizures in Adults (ED) Prescriptions: No Action divalproex 500 mg tablet extended release 24 hr 1 tab PO BID amoxicillin 500 mg capsule 500 mg PO BID 10 Days Qty: 20 0RF ibuprofen 600 mg tablet 600 mg PO QID PRN (Reason: pain) Qty: 14 0RF prednisone 20 mg tablet 20 mg PO DAILY 5 Days Qty: 5 0RF benzonatate 100 mg capsule 100 mg PO BID PRN (Reason: cough) Qty: 20 0RF albuterol sulfate 90 mcg/actuation aerosol powdr breath activated 2 inh inhalation Q4-6H PRN (Reason: shortness of breath or wheezing) Qty: 1 0RF ibuprofen 400 mg tablet 400 mg PO TID PRN (Reason: fever or pain) Qty: 30 0RF ondansetron 4 mg tablet,disintegrating 4 mg PO Q6-8H PRN (Reason: nausea and vomiting) Qty: 14 0RF ondansetron 4 mg tablet,disintegrating 4 mg PO Q8H PRN (Reason: nausea and vomiting) Qty: 20 0RF metformin 500 mg tablet 500 mg PO BIDWM famotidine 20 mg tablet 20 mg PO BID albuterol sulfate [Ventolin HFA] 90 mcg/actuation HFA aerosol inhaler 2 puff INHALATION Q4-6H PRN (Reason: Shortness Of Breath) loratadine 10 mg tablet 10 mg PO DAILY divalproex 250 mg tablet,delayed release (DR/EC) 250 mg PO DAILY divalproex 250 mg Tablet Extended Release 24 Hr 250 mg PO BEDTIME Qty: 30 0RF benzonatate 200 mg capsule 200 mg PO TID PRN (Reason: cough) Qty: 9 0RF hydrocortisone 2.5 % cream 1 appl topical TID PRN (Reason: itching) Qty: 20 0RF diphenhydramine HCl [Benadryl Allergy] 25 mg tablet 25 mg PO TID PRN (Reason: itching) Qty: 14 0RF budesonide-formoterol [Symbicort] 160-4.5 mcg/actuation HFA aerosol inhaler 2 puff inhalation BID 30 Days Qty: 10.2 11RF Referrals: Miranda Miranda MD [Physician] - Print Language: Sami
[2024-03-11] MEDS: LORazepam 2 MG/ML VIAL 1 MG IVPUSH (13:57)
[2024-03-11] MEDS: 0.9 % Sodium Chloride 1,000 ML 999 ML IV (14:03)
[2024-03-11 14:04] VITALS: BP 112/62; BP 124/70; PULSE 89; PULSE 90; RESP 16; TEMP 36.8; O2SAT 95; BMI 32.0
[2024-03-11 14:07] VITALS: PULSE 90; RESP 16; O2SAT 96
--- NOTE | 2024-03-11 14:21 | PC.NURSE ---
Pt is alert and oriented, slowly more oriented after arrival. New IV established per pt request and EMS line removed. 20g to right AC and NS started, Ativan 1mg given IVP d/t pt shaking (while awake) states happens prior to seizures. Pt unable to recall last seizure but states she is compliant with Depakote. Denies bowel/bladder incontinence. Spoke to pts per request and updated on current status. Seizure precautions initiated, current open. Labs sent.
[2024-03-11 14:22] LABS: MANUAL DIFF FLAG NO
[2024-03-11 14:25] LABS: Basophils Percent Auto 0.5 % (0-2); Eosinophils Percent Auto 0.3 % (0-4); Hematocrit 36.6 % (37.0-47.0); Hemoglobin 12.3 g/dl (12.0-16.0); Imm Gran Abs Auto 0.02 X10*3/uL (0.00-0.03); Imm Gran Pct Auto 0.3 % (0.0-0.4); Lymphocytes Absolute Auto 2.6 X10*3/uL (1.2-4.9); Lymphocytes Percent Auto 40.9 % (20-40); Mean Corpuscular HGB Conc 33.6 g/dl (31.0-35.0); Mean Corpuscular Hemoglobin 33.4 pg (27.0-33.0); Mean Corpuscular Volume 99.5 fL (80.0-98.0); Mean Platelet Volume 11.1 fL (9.4-12.3); Monocytes Absolute Auto 0.5 X10*3/uL (0.1-1.2); Monocytes Percent Auto 7.2 % (2-11); Neutrophils Absolute Auto 3.2 x10*3/uL (2.0-8.3); Neutrophils Percent Auto 50.8 % (45-73); Platelet Count 193 X10*3/uL (160-400); Red Blood Count 3.68 X10*6/uL (4.20-5.50); Red Cell Distribution Width 13.1 % (11.0-16.0); White Blood Count 6.3 X10*3/uL (4.8-10.8)
[2024-03-11 14:47] LABS: Valproate 103.7 mcg/mL (50.0-100.0)
[2024-03-11 14:49] LABS: Alanine Aminotransferase 42 U/L (0-31); Albumin Level 3.8 g/dL (3.5-5.0); Alkaline Phosphatase 49 U/L (39-117); Anion Gap 15 (12-20); Aspartate Amino Transferase 48 U/L (5-31); Bilirubin Direct 0.1 mg/dL (0.0-0.5); Bilirubin Total 0.3 mg/dL (0.0-1.0); Blood Urea Nitrogen 10 mg/dL (9-16); Calcium 8.6 mg/dL (8.4-10.2); Carbon Dioxide 24 mmol/L (22-29); Chloride 104 mmol/L (96-108); Creatinine Clr Calc Pharmacy 123.2; Estimated Glomerular Filt Rate > 60; Glucose Random 119 mg/dL (60-115); Lipase 24 U/L (8-78); Potassium 4.1 mmol/L (3.3-5.1); Sodium 139 mmol/L (135-145); Total Protein 7.1 g/dL (6.5-8.0)
--- NOTE | 2024-03-11 14:53 | PC.NURSE ---
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 Seizure precautions in place.
[2024-03-11 16:04] VITALS: BP 115/69; PULSE 73; RESP 14; O2SAT 99
[2024-03-11 16:52] LABS: HCG Quantitative < 2 mIU/mL
[2024-03-11 18:10] VITALS: BP 109/63; PULSE 80; RESP 14; O2SAT 98
[2024-03-11 18:34] LABS: Appearance Urine Clear; Color Urine Yellow; Glucose Urine UA Negative (Negative); Leukocyte Esterase Urine Negative (Negative); Nitrite Urine Negative (Negative); PH 5.5 (5.0-9.0); Urine Blood Negative (Negative); Urine Ketones Trace mg/dL (Negative); Urine Protein Negative (Neg-Trace)
[2024-03-11 18:43] LABS: UPreg QC Valid YES; Urine Pregnancy NEGATIVE (NEGATIVE)
[2024-03-11 20:10] VITALS: BP 108/45; PULSE 86; RESP 18; TEMP 36.8; O2SAT 99
--- NOTE | 2024-03-11 20:55 | PC.NURSE ---
pt a&ox4 prior to d/c. vss and up to date. nsr on the rehabilitation manager. transportation home via sister. IV removed.
[2024-03-11 20:56] VITALS: BP 108/45; PULSE 86; RESP 18; TEMP 36.8; O2SAT 99
== END 2024-03-11 20:57 | disposition home or self-care (01) ==
PROVIDERS: Emergency Provider Emergency Medicine
DX: G40.909 Epilepsy, unspecified, not intractable, without status epilepticus (principal); E11.9 Type 2 diabetes mellitus without complications; J45.909 Unspecified asthma, uncomplicated; Z79.899 Other long term (current) drug therapy
CPT/HCPCS: 36415; 80048; 80076; 80164; 81003; 81025; 83690; 84702; 85025; 96361; 96374; 99284; J2060

== ENCOUNTER 2024-04-01 16:21 | Outpatient (REF) | payer MEDICAID, SELFPAY | END 2024-04-01 16:22 | disposition home or self-care (01) | LOC: HO.HHCLNP 16:21 | PROVIDERS: Visit Provider Advanced Practice Midwife | DX: R30.0 Dysuria (principal) | CPT/HCPCS: 87086 ==

== ENCOUNTER 2024-04-08 16:55 | Emergency (ER) | payer OTHER, MEDICAID, SELFPAY ==
--- NOTE | ~2024-04-08 | CT_ITS ---
EXAMINATION: CT CHEST, ABDOMEN AND PELVIS WITHOUT CONTRAST CLINICAL INFORMATION: Seizure fall chest pain abdominal pain COMPARISON: CT abdomen from 06/12/2023 TECHNIQUE: Multidetector volumetric CT imaging of the chest, abdomen, and pelvis was performed. Axial MIP volume rendering provided. Sagittal and coronal reformatted images were obtained. This CT examination was performed using dose optimization techniques as appropriate, variously including the following: *Automated exposure control *Adjustment of mA and/or kV according to patient size (this includes techniques or standardized protocols for targeted exams where dose is matched to indication/reason for exam; i.e. extremities or head) *Use of iterative reconstruction technique DLP: 1252 mGy-cm. FINDINGS: CHEST: LUNGS/PLEURA: Bibasilar atelectasis. Central airways are patent. No pneumothorax. No large pleural effusion. MEDIASTINUM: Heart is not enlarged. No pericardial effusion. No coronary calcifications. Aorta is nonaneurysmal. Main pulmonary artery is not enlarged. No enlarged lymph nodes per size criteria. Visualized portions of the thyroid are unremarkable. AXILLA: No lymphadenopathy. ABDOMEN AND PELVIS: LIVER, GALLBLADDER, AND BILIARY TREE: Liver is enlarged measuring 19.7 cm. No focal hepatic lesion or biliary ductal dilatation is present. The gallbladder is surgically absent. PANCREAS: Unremarkable. SPLEEN: Unremarkable. 1.2 cm splenule. ADRENAL GLANDS: Unremarkable. KIDNEYS AND URETERS: The kidneys are normal in size, shape, and attenuation. No hydronephrosis, hydroureter, or calculi seen. No perinephric stranding. BLADDER: Unremarkable. GASTROINTESTINAL TRACT: Slight colonic diverticulosis without acute diverticulitis. The small and large bowel are unremarkable. The appendix is unremarkable. ABDOMINAL WALL: Fat filled umbilical hernia. LYMPH NODES: No enlarged lymph nodes per size criteria. VASCULAR: Abdominal aorta is nonaneurysmal. Pelvic phleboliths are noted. PELVIC VISCERA: Anteverted uterus. Left adnexal/ovarian hypodense focus measuring 2.1 cm. Findings are overwhelmingly likely to represent a normal ovarian follicle. No follow-up imaging recommended. OSSEOUS STRUCTURES: Multilevel degenerative changes of the thoracolumbar lumbosacral spine. Degenerative arthropathy of the bilateral sacroiliac joints. CT/CT abdomen pelvis wo IV con IMPRESSION: 1. No acute process of the chest, abdomen, or pelvis identified. 2. Liver is enlarged measuring 19.7 cm. 3. Status post cholecystectomy. 4. Slight colonic diverticulosis without acute diverticulitis. 5. Fat filled umbilical hernia. 6. Left adnexal/ovarian hypodense focus measuring 2.1 cm. Findings are overwhelmingly likely to represent a normal ovarian follicle. No follow-up imaging recommended.
--- NOTE | ~2024-04-08 | CT_ITS ---
EXAMINATION: CT HEAD WITHOUT CONTRAST CT CERVICAL SPINE WITHOUT CONTRAST CLINICAL INFORMATION: Head strike status post fall. Seizure x2. COMPARISON: CT head 11/16/2023. TECHNIQUE: Bench Mover images were obtained. CT imaging of the head and cervical spine was performed without contrast. Data was reformatted into multiplanar images at the acquisition workstation. This CT examination was performed using dose optimization techniques as appropriate, including one or more of the following: Automated exposure control, iterative reconstruction, and adjustment of technique factors (mA and/or kVp) according to patient size (this includes techniques or standardized protocols for targeted exams where dose is matched to indication/reason for exam). Fleischner Society criteria for the followup of incidental pulmonary nodules was implemented if appropriate. DLP: 1018 mGy-cm. FINDINGS: There is no acute intracranial hemorrhage or abnormal extra-axial collection. No intracranial mass effect or midline shift. Lateral and third ventricles are normal. No hydrocephalus. Graves-white matter differentiation is preserved and there is no evidence of acute territorial infarct. The calvarium and skull base are intact. Mastoid air cells and middle ear cavities are well aerated. A few small retention cysts within the left maxillary sinus. Otherwise no active paranasal sinus disease. CT/CT cervical spine wo IV con IMPRESSION: Unremarkable CT scan of the head. No evidence of acute territorial infarct or hemorrhage.
--- NOTE | ~2024-04-08 | CT_ITS ---
EXAMINATION: CT HEAD WITHOUT CONTRAST CT CERVICAL SPINE WITHOUT CONTRAST CLINICAL INFORMATION: Head strike status post fall. Seizure x2. COMPARISON: CT head 11/16/2023. TECHNIQUE: Seasoner images were obtained. CT imaging of the head and cervical spine was performed without contrast. Data was reformatted into multiplanar images at the acquisition workstation. This CT examination was performed using dose optimization techniques as appropriate, including one or more of the following: Automated exposure control, iterative reconstruction, and adjustment of technique factors (mA and/or kVp) according to patient size (this includes techniques or standardized protocols for targeted exams where dose is matched to indication/reason for exam). Fleischner Society criteria for the followup of incidental pulmonary nodules was implemented if appropriate. DLP: 1018 mGy-cm. FINDINGS: There is no acute intracranial hemorrhage or abnormal extra-axial collection. No intracranial mass effect or midline shift. Lateral and third ventricles are normal. No hydrocephalus. Graves-white matter differentiation is preserved and there is no evidence of acute territorial infarct. The calvarium and skull base are intact. Mastoid air cells and middle ear cavities are well aerated. A few small retention cysts within the left maxillary sinus. Otherwise no active paranasal sinus disease. CT/CT head/brain wo IV con IMPRESSION: Unremarkable CT scan of the head. No evidence of acute territorial infarct or hemorrhage.
[2024-04-08 17:04] VITALS: BP 126/86; PULSE 98; O2SAT 95
[2024-04-08 17:07] VITALS: BP 112/66; PULSE 90; RESP 18; O2SAT 98; BMI 31.8
--- NOTE | 2024-04-08 17:07 | ED.NEUROSD ---
HPI - Neuro Symptoms/Deficit General Chief Complaint: Seizure Stated Complaint: Fall w/ head strike, sz x2, 7 mins each, collared Time Seen by Provider: 04/08/24 17:07 Source: patient Mode of arrival: EMS Limitations: no limitations History of Present Illness ED Provider: Dr. Stan Anderson HPI Narrative: 33-year-old female with a history of diabetes mellitus, asthma, seizure and pseudo-seizure who presents emergency department for seizure-like activity while she was at work. Information was obtained from nursing who got report from EMS. The patient was at work and she had 2 witnessed seizures with a fall, striking her head. Each seizure lasted approximately 7 minutes. Paramedics reported that the patient initially was able to respond but then was answering yes and no to questions. At the time my evaluation the patient was awake, able to tell me her name, able to answer questions, she was in C-spine precautions and was complaining of severe pain in her thoracic and lower back area. She also states that her legs felt weak but she was able to move her leg [id number] on the stretcher. She told me that she does not recall any stressful event at work. 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 Patient was was felt to have had a seizure with a postictal period and was treated with Ativan IV. Patient did have a supratherapeutic valproic acid over that time of 103.7.. Related Data Home Medications ?Medication ?Instructions ?Recorded ?Confirmed divalproex 500 mg tablet,extended 1 tab PO BID 12/29/22 07/30/23 release 24 hr albuterol sulfate 90 mcg/actuation 2 puff inhalation Q4-6H PRN 07/30/23 07/30/23 aerosol inhaler (Ventolin HFA) Shortness Of Breath divalproex 250 mg tablet,delayed 250 mg PO DAILY 07/30/23 07/30/23 release famotidine 20 mg tablet 20 mg PO BID 07/30/23 07/30/23 loratadine 10 mg tablet 10 mg PO DAILY 07/30/23 07/30/23 metformin 500 mg tablet 500 mg PO BIDWM 07/30/23 07/30/23 Previous Rx's ?Medication ?Instructions ?Recorded budesonide-formoterol HFA 160 2 puff inhalation BID 30 days 07/23/23 mcg-4.5 mcg/actuation aerosol #10.2 grams inhaler (Symbicort) ondansetron 4 mg disintegrating 4 mg PO Q8H PRN nausea and 07/23/23 tablet vomiting #20 tabs divalproex 250 mg tablet,extended 250 mg PO BEDTIME #30 tabs 07/31/23 release 24 hr amoxicillin 500 mg capsule 500 mg PO BID 10 days #20 caps 08/31/23 benzonatate 200 mg capsule 200 mg PO TID PRN cough #9 caps 10/06/23 diphenhydramine HCl 25 mg tablet 25 mg PO TID PRN itching #14 tabs 10/06/23 (Benadryl Allergy) hydrocortisone 2.5 % topical cream 1 appl topical TID PRN itching #20 10/06/23 grams ibuprofen 600 mg tablet 600 mg PO QID PRN pain #14 tabs 12/06/23 albuterol sulfate 90 mcg/actuation 2 inh inhalation Q4-6H PRN 12/27/23 breath activated powder inhaler shortness of breath or wheezing #1 ea benzonatate 100 mg capsule 100 mg PO BID PRN cough #20 caps 12/27/23 prednisone 20 mg tablet 20 mg PO DAILY 5 days #5 tabs 12/27/23 ibuprofen 400 mg tablet 400 mg PO TID PRN fever or pain 01/07/24 #30 tabs ondansetron 4 mg disintegrating 4 mg PO Q6-8H PRN nausea and 01/07/24 tablet vomiting #14 tabs Allergies Allergy/AdvReac Type Severity Reaction Status Date / Time Iodinated Contrast Media Allergy Intermediate Facial Verified 04/08/24 17:08 Swelling clindamycin [CLINDAMYCIN] Allergy Unknown ANAPHYLAXIS Verified 04/08/24 17:08 latex Allergy Itching Verified 04/08/24 17:08 Review of Systems Review of Systems: Yes all other systems are reviewed and are negative PMFSH Past Medical History Medical History Chronic allergic rhinitis Otitis media Hypoxia Viral pneumonia Infection due to human metapneumovirus (hMPV) Diabetes mellitus Epilepsy Surgical History Hx of cholecystectomy Social History Social History Household Members: Spouse and Children Housing: Apartment Do you presently have visiting nurse or other home services: No Alcohol intake: current Alcohol intake frequency: holidays/special occasions only Patient Tobacco Use Status: Never used Tobacco Smoked in Last 30 Days: No Use of substances other than those prescribed or required for medical reasons: No Advance Directives: Yes Advance Directives on File: Yes Advance Directives Date on File: 08/17/23 Do you have a plan to hurt others: No Plan service: No Current occupational status: employed Physical Exam Vital Signs: Vital Signs: Last Vital Signs Temp 97.8 F 04/08/24 20:21 Pulse 75 04/08/24 20:21 Resp 14 04/08/24 20:21 BP 108/52 L 04/08/24 20:21 Pulse Ox 100 04/08/24 20:21 O2 Del Method Nasal Cannula 04/08/24 20:21 O2 Flow Rate 2 04/08/24 20:21 BMI result Body Mass Index 31.8 Vital signs were normal Exam: General: Awake, oriented to person and place, answers questions appropriately, in distress secondary to thoracic and lower back pain Head: Normocephalic, atraumatic EENT: PERRL, Lids normal, sclera normal, conjunctiva normal, nose normal , ears normal, throat without erythema or exudates Neck: C-spine tenderness, bilateral trapezius muscle tenderness Lung: breath sounds symmetric, no wheezing, rales or rhonchi Chest: symmetric movement, nontender Heart: regular rate and rhythm, normal S1, S2 no murmurs or rubs Abdomen: soft, non-tender, nondistended, normal bowel sounds Back: Tenderness with palpation of thoracic and lumbar back area Extremities: no deformities, moves all extremities symmetrically Neuro: Awake, alert, oriented, normal speech, cranial nerves intact, patient has generalized weakness but is able to move her upper extremities against gravity, she was not able to lift her lower extremities against gravity but can move them from [id number] symmetrically Psych: Pleasant, cooperative Medications Administered Discontinued Medications Generic Name Dose Route Start Last Admin Trade Name Freq PRN Reason Stop Dose Admin Midazolam HCl 2 mg 04/08/24 17:34 04/08/24 17:37 Midazolam Hcl/Pf 2 Mg/2 Ml Vial IVPUSH 04/08/24 17:35 2 mg ONCE ONE Administration Midazolam HCl 2 mg 04/08/24 19:50 04/08/24 19:53 Midazolam Hcl/Pf 2 Mg/2 Ml Vial IVPUSH 04/08/24 19:51 2 mg ONCE ONE Administration Morphine Sulfate 4 mg 04/08/24 17:17 04/08/24 17:29 Morphine Sulfate 4 Mg/Ml Cartridge IVPUSH 04/08/24 17:18 4 mg ONCE STA Administration Protocol Morphine Sulfate 4 mg 04/08/24 19:50 04/08/24 19:53 Morphine Sulfate 4 Mg/Ml Cartridge IVPUSH 04/08/24 19:51 4 mg ONCE STA Administration Protocol Ondansetron HCl 4 mg 04/08/24 17:17 04/08/24 17:29 Ondansetron Hcl 4 Mg/2 Ml Vial IVPUSH 04/08/24 17:18 4 mg ONCE ONE Administration Medical Decision Making Medical Decision Making MDM Narrative: 33-year-old female with a history of diabetes mellitus, asthma, seizure and pseudo-seizure who presents emergency department for seizure-like activity while she was at work, reported a fall with head strike, loss of consciousness, seizure-like activity lasting 7 minutes x2 episodes. Paramedics report that the patient initially was not answering questions but was answering questions on arrival to the emergency department. Patient did have C-spine tenderness and tenderness palpation of her thoracic and lumbar back. Patient has generalized weakness in his able to hold her upper extremities against gravity but not able to lift her lower extremities against gravity but can move them from [id number]. Differential diagnosis: ?Includes but is not limited to skull fracture, intracranial bleed, concussion, cervical spine fracture, cervical muscle sprain/strain, chest contusion, rib fractures, thoracic spine/lumbar spine fracture, thoracic/lumbar muscle contusion, electrical seizure, non electrical seizure Following evaluation was ordered: CBC, CMP, lactic acid, PTT, CK, valproic acid, urine drug screen, urine test, urinalysis, CT head, cervical, spine, chest, abdomen pelvis without IV contrast Patient was initially treated with the following: Morphine 4 mg IV, Zofran 4 mg IV, midazolam 2 mg IV Course: 21:17 My independent interpretation of the patient's laboratory evaluation is as follows: WBC normal 8300. Microcytic anemia with an H&H of 11.9 and 35.2, MCV 98.1-this is chronic. PTT was normal. CMP was normal except for elevated AST and ALT of 56 and 58. Lactic acid was initially elevated 2.4, repeat was 1.3. Quantitative beta-hCG was below detectable limits. Valproic acid was 86.2 which is in the therapeutic range. The the patient had minimal relief of her pain with the above treatment. She was ordered to get Dilaudid 1 mg IV. There has been a long delay in radiology interpretation CT scans due to a breakdown in the PACS system and radiology overload. At the end of my shift, the CT scans are pending therefore the patient's care was turned over to my colleague, Dr. Lupe Salomon's. Admission/Observation Consideration of admission/observation: Escalation of care including admission/observation considered Lab Data MDM Lab Attestation statement: I reviewed the patient's lab results. 04/08/24 18:03 04/08/24 18:03 Labs: Lab Results 04/08/24 04/08/24 04/08/24 Range/Units 18:02 18:03 18:41 WBC 8.3 (4.8-10.8) X10*3/uL RBC 3.59 L (4.20-5.50) X10*6/uL Hgb 11.9 L (12.0-16.0) g/dl Hct 35.2 L (37.0-47.0) % MCV 98.1 H (80.0-98.0) fL MCH 33.1 H (27.0-33.0) pg MCHC 33.8 (31.0-35.0) g/dl RDW 13.2 (11.0-16.0) % Plt Count 246 D (160-400) X10*3/uL MPV 10.8 (9.4-12.3) fL Immature Gran % (Auto) 0.4 (0.0-0.4) % Neut % (Auto) 51.7 (45-73) % Lymph % (Auto) 40.5 H (20-40) % [place] % (Auto) 6.9 (2-11) % Eos % (Auto) 0.1 (0-4) % Baso % (Auto) 0.4 (0-2) % Lymph # (Auto) 3.4 (1.2-4.9) X10*3/uL [place] # (Auto) 0.6 (0.1-1.2) X10*3/uL Eos # (Auto) 0.0 (0.0-0.4) X10*3/uL Baso # (Auto) 0.0 (0.0-0.2) X10*3/uL Abs Immat Gran (auto) 0.03 (0.00-0.03) X10*3/uL Absolute Neuts (auto) 4.3 (2.0-8.3) x10*3/uL Absolute Nucleated RBC 0.000 (0.0-0.012) X10*3/uL Nucleated RBC % (auto) 0.0 (0.0-0.2) /100WBC APTT 35.1 (26.0-36.8) SEC Sodium 140 (135-145) mmol/L Potassium 4.0 (3.3-5.1) mmol/L Chloride 104 (96-108) mmol/L Carbon Dioxide 27 (22-29) mmol/L Anion Gap 13 (12-20) BUN 13 (9-16) mg/dL Creatinine 0.55 (0.5-1.4) mg/dL Estim Creat Clear Calc 153.9 Estimated GFR > 60 Random Glucose 85 (60-115) mg/dL Lactic Acid 2.4 H* (0.5-2.0) mmol/L Lactic Acid F/U @ 2Hr (0.5-2.0) mmol/L Calcium 9.4 D (8.4-10.2) mg/dL Total Bilirubin 0.5 (0.0-1.0) mg/dL AST 56 H (5-31) U/L ALT 58 H (0-31) U/L Alkaline Phosphatase 54 (39-117) U/L Total Creatine Kinase 64 (26-140) U/L Total Protein 7.5 (6.5-8.0) g/dL Albumin 4.2 (3.5-5.0) g/dL Beta HCG, Quant < 2 mIU/mL Valproic Acid 86.2 (50.0-100.0) mcg/mL 04/08/24 Range/Units 20:19 WBC (4.8-10.8) X10*3/uL RBC (4.20-5.50) X10*6/uL Hgb (12.0-16.0) g/dl Hct (37.0-47.0) % MCV (80.0-98.0) fL MCH (27.0-33.0) pg MCHC (31.0-35.0) g/dl RDW (11.0-16.0) % Plt Count (160-400) X10*3/uL MPV (9.4-12.3) fL Immature Gran % (Auto) (0.0-0.4) % Neut % (Auto) (45-73) % Lymph % (Auto) (20-40) % Montague % (Auto) (2-11) % Eos % (Auto) (0-4) % Baso % (Auto) (0-2) % Lymph # (Auto) (1.2-4.9) X10*3/uL [place] # (Auto) (0.1-1.2) X10*3/uL Eos # (Auto) (0.0-0.4) X10*3/uL Baso # (Auto) (0.0-0.2) X10*3/uL Abs Immat Gran (auto) (0.00-0.03) X10*3/uL Absolute Neuts (auto) (2.0-8.3) x10*3/uL Absolute Nucleated RBC (0.0-0.012) X10*3/uL Nucleated RBC % (auto) (0.0-0.2) /100WBC APTT (26.0-36.8) SEC Sodium (135-145) mmol/L Potassium (3.3-5.1) mmol/L Chloride (96-108) mmol/L Carbon Dioxide (22-29) mmol/L Anion Gap (12-20) BUN (9-16) mg/dL Creatinine (0.5-1.4) mg/dL Estim Creat Clear Calc Estimated GFR Random Glucose (60-115) mg/dL Lactic Acid (0.5-2.0) mmol/L Lactic Acid F/U @ 2Hr 1.3 (0.5-2.0) mmol/L Calcium (8.4-10.2) mg/dL Total Bilirubin (0.0-1.0) mg/dL AST (5-31) U/L ALT (0-31) U/L Alkaline Phosphatase (39-117) U/L Total Creatine Kinase (26-140) U/L Total Protein (6.5-8.0) g/dL Albumin (3.5-5.0) g/dL Beta HCG, Quant mIU/mL Valproic Acid (50.0-100.0) mcg/mL Chronic Conditions Patient?s care impacted by: Diabetes and Other (Seizure disorder) Critical Care Time Critical Care Time Critical Care Time: Yes Total Critical Care Time: 45 Attestation: Critical Care: The patient was critically ill with a high probability of imminent or life threatening deterioration. I spent greater than 30 minutes of discontinuous time evaluating the patient,delivering critical care at the bedside, discussing and evaluating pertinent data with consultants. Critical care time does not include time spent performing separately billable procedures or teaching. Total time spent performing critical care was 45 minutes. Discharge Plan Discharge Clinical Impression: Seizure, Fall, Closed head injury, Back contusion, Neck strain Patient Disposition: Still a Patient Prescriptions: No Action divalproex 500 mg tablet extended release 24 hr 1 tab PO BID amoxicillin 500 mg capsule 500 mg PO BID 10 Days Qty: 20 0RF ibuprofen 600 mg tablet 600 mg PO QID PRN (Reason: pain) Qty: 14 0RF prednisone 20 mg tablet 20 mg PO DAILY 5 Days Qty: 5 0RF benzonatate 100 mg capsule 100 mg PO BID PRN (Reason: cough) Qty: 20 0RF albuterol sulfate 90 mcg/actuation aerosol powdr breath activated 2 inh inhalation Q4-6H PRN (Reason: shortness of breath or wheezing) Qty: 1 0RF ibuprofen 400 mg tablet 400 mg PO TID PRN (Reason: fever or pain) Qty: 30 0RF ondansetron 4 mg tablet,disintegrating 4 mg PO Q6-8H PRN (Reason: nausea and vomiting) Qty: 14 0RF ondansetron 4 mg tablet,disintegrating 4 mg PO Q8H PRN (Reason: nausea and vomiting) Qty: 20 0RF metformin 500 mg tablet 500 mg PO BIDWM famotidine 20 mg tablet 20 mg PO BID albuterol sulfate [Ventolin HFA] 90 mcg/actuation HFA aerosol inhaler 2 puff INHALATION Q4-6H PRN (Reason: Shortness Of Breath) loratadine 10 mg tablet 10 mg PO DAILY divalproex 250 mg tablet,delayed release (DR/EC) 250 mg PO DAILY divalproex 250 mg Tablet Extended Release 24 Hr 250 mg PO BEDTIME Qty: 30 0RF benzonatate 200 mg capsule 200 mg PO TID PRN (Reason: cough) Qty: 9 0RF hydrocortisone 2.5 % cream 1 appl topical TID PRN (Reason: itching) Qty: 20 0RF diphenhydramine HCl [Benadryl Allergy] 25 mg tablet 25 mg PO TID PRN (Reason: itching) Qty: 14 0RF budesonide-formoterol [Symbicort] 160-4.5 mcg/actuation HFA aerosol inhaler 2 puff inhalation BID 30 Days Qty: 10.2 11RF Print Language: Brazilian
[2024-04-08 17:10] VITALS: BP 112/66; PULSE 93; RESP 16; TEMP 36.9; O2SAT 97
--- NOTE | 2024-04-08 17:17 | PC.NURSE ---
Patient's John called [phone] updated on plan of care per patient's request.
[2024-04-08] MEDS: Morphine Sulfate 4 MG/ML CARTRIDGE IVPUSH ×2 (17:29→19:53)
[2024-04-08] MEDS: ondansetron HCL 4 MG/2 ML VIAL IVPUSH (17:29)
[2024-04-08] MEDS: Midazolam HCl/PF 2 MG/2 ML VIAL IVPUSH ×2 (17:37→19:53)
[2024-04-08 18:10] LABS: MANUAL DIFF FLAG NO
[2024-04-08 18:22] LABS: Basophils Percent Auto 0.4 % (0-2); Eosinophils Percent Auto 0.1 % (0-4); Hematocrit 35.2 % (37.0-47.0); Hemoglobin 11.9 g/dl (12.0-16.0); Imm Gran Abs Auto 0.03 X10*3/uL (0.00-0.03); Imm Gran Pct Auto 0.4 % (0.0-0.4); Lymphocytes Absolute Auto 3.4 X10*3/uL (1.2-4.9); Lymphocytes Percent Auto 40.5 % (20-40); Mean Corpuscular HGB Conc 33.8 g/dl (31.0-35.0); Mean Corpuscular Hemoglobin 33.1 pg (27.0-33.0); Mean Corpuscular Volume 98.1 fL (80.0-98.0); Mean Platelet Volume 10.8 fL (9.4-12.3); Monocytes Absolute Auto 0.6 X10*3/uL (0.1-1.2); Monocytes Percent Auto 6.9 % (2-11); Neutrophils Absolute Auto 4.3 x10*3/uL (2.0-8.3); Neutrophils Percent Auto 51.7 % (45-73); Platelet Count 246 X10*3/uL (160-400); Red Blood Count 3.59 X10*6/uL (4.20-5.50); Red Cell Distribution Width 13.2 % (11.0-16.0); White Blood Count 8.3 X10*3/uL (4.8-10.8)
[2024-04-08 18:28] LABS: Alanine Aminotransferase 58 U/L (0-31); Albumin Level 4.2 g/dL (3.5-5.0); Alkaline Phosphatase 54 U/L (39-117); Anion Gap 13 (12-20); Aspartate Amino Transferase 56 U/L (5-31); Bilirubin Total 0.5 mg/dL (0.0-1.0); Blood Urea Nitrogen 13 mg/dL (9-16); Calcium 9.4 mg/dL (8.4-10.2); Carbon Dioxide 27 mmol/L (22-29); Chloride 104 mmol/L (96-108); Creatinine Clr Calc Pharmacy 153.9; Estimated Glomerular Filt Rate > 60; Glucose Random 85 mg/dL (60-115); Sodium 140 mmol/L (135-145); Total Protein 7.5 g/dL (6.5-8.0)
[2024-04-08 18:29] LABS: Lactic Acid 2.4 mmol/L (0.5-2.0)
[2024-04-08 18:32] LABS: Partial Thromboplastin Time 35.1 SEC (26.0-36.8)
[2024-04-08 19:09] VITALS: BP 123/67; PULSE 82; RESP 17; TEMP 36.7; O2SAT 98
[2024-04-08 19:11] LABS: Valproate 86.2 mcg/mL (50.0-100.0)
[2024-04-08 20:08] LABS: Reflex Lactate? Lactic Acid Added
[2024-04-08 20:21] VITALS: BP 108/52; PULSE 75; RESP 14; TEMP 36.6; O2SAT 100
[2024-04-08 20:30] LABS: HCG Quantitative < 2 mIU/mL
[2024-04-08 20:34] LABS: ~Lactic Acid-LAB USE ONLY 1.3 mmol/L (0.5-2.0)
--- NOTE | 2024-04-08 21:07 | PC.NURSE ---
Patient continues to complain of severe back pain, cannot raise legs off bed d/t back pain, provider made aware.
[2024-04-08] MEDS: HYDROmorphone HCl 1 MG/ML SYRINGE IVPUSH (21:29)
[2024-04-08 22:09] VITALS: BP 118/56; PULSE 71; RESP 15; TEMP 36.7; O2SAT 99
[2024-04-08] MEDS: Prochlorperazine Edisylate 10 MG/2 ML VIAL IVPUSH (23:01)
[2024-04-09 00:01] VITALS: BP 109/64; PULSE 94; RESP 12; TEMP 36.5; O2SAT 96
[2024-04-09 02:47] VITALS: BP 115/51; PULSE 71; RESP 10; TEMP 36.6; O2SAT 98
== END 2024-04-09 02:48 | disposition home or self-care (01) ==
PROVIDERS: Emergency Medicine Emergency Medical Services; Emergency Provider Emergency Medicine; PCP Internal Medicine
DX: S09.90XA Unspecified injury of head, initial encounter (principal); S30.0XXA Contusion of lower back and pelvis, initial encounter; S16.1XXA Strain of muscle, fascia and tendon at neck level, initial encounter; R56.9 Unspecified convulsions; R51.9 Headache, unspecified; M54.2 Cervicalgia; R10.2 Pelvic and perineal pain; W01.10XA Fall on same level from slipping, tripping and stumbling with subsequent striking against unspecified object, initial encounter; Y93.9 Activity, unspecified; Y92.410 Unspecified street and highway as the place of occurrence of the external cause; Y99.8 Other external cause status; Z79.899 Other long term (current) drug therapy
CPT/HCPCS: 36415; 70450; 71250; 72125; 74176; 80053; 80164; 82550; 83605; 84702; 85025; 85730; 96374; 96375; 96376; 99284; J0737; J1170; J2250; J2270; J2405

== ENCOUNTER 2024-05-12 10:52 | Emergency (ER) | payer MEDICAID, SELFPAY ==
--- NOTE | ~2024-05-12 | CT_ITS ---
EXAMINATION: CT HEAD W/O IV CONTRAST CT CERVICAL SPINE W/O IV CONTRAST CLINICAL INFORMATION: History of head and neck trauma. COMPARISON: 04/08/2024. TECHNIQUE: Head - Contiguous axial imaging of the head was performed from the skull base to the vertex without the administration of intravenous contrast, and axial images are reconstructed at 2 mm and 5 mm slice thickness. Cervical spine - A volumetric, helical CT acquisition of the cervical spine was obtained without contrast; in addition to the standard set of axial images, multiplanar reformatted images were provided in the coronal and sagittal imaging planes. This CT examination was performed using dose optimization techniques as appropriate, variously including the following: *Automated exposure control *Adjustment of mA and/or kV according to patient size (this includes techniques or standardized protocols for targeted exams where dose is matched to indication/reason for exam; i.e. extremities or head) *Use of iterative reconstruction technique DLP: 1086 mGy-cm (total) FINDINGS: HEAD: The brain parenchyma has normal attenuation. Graves to white matter differentiation is preserved. No evidence of intracranial hemorrhage, major vascular territory infarction, focal mass effect or midline shift. The ventricles have normal size and configuration. No hydrocephalus or extra-axial fluid collections. The calvarium is intact. There is a mucus retention cyst of the inferior left maxillary sinus. Otherwise, the paranasal sinuses, mastoid air cells and middle ear cavities are clear. The temporomandibular joints are intact. The orbits and globes are unremarkable. CERVICAL SPINE: There is lack of lordotic curvature of the cervical spine. The craniocervical junction is normal. The occipital condyles, dens and atlantodental articulation are intact. The vertebral body heights and alignment are maintained. No fractures in the anterior or posterior elements. No prevertebral soft tissue edema or hematoma. The disc spaces are preserved. There are no significant findings at the facet joints. There is no significant stenosis of the spinal canal. Thyroid gland is normal. The examined lung apices are unremarkable. CT/CT cervical spine wo IV con IMPRESSION: * No acute intracranial pathology. * No fracture or malalignment in the cervical spine.
[2024-05-12 10:58] VITALS: BP 104/60; BP 127/48; PULSE 100; PULSE 90; RESP 16; TEMP 37.1; O2SAT 96; O2SAT 98; BMI 35.0
[2024-05-12 11:03] VITALS: BP 127/48; PULSE 90; RESP 16; TEMP 37.1; O2SAT 96
--- NOTE | 2024-05-12 11:16 | ED_ITS ---
HPI - Seizure General Chief Complaint: Seizure Stated Complaint: Seizure, postictal Time Seen by Provider: 05/12/24 11:00 Source: patient, EMS and old records reviewed Mode of arrival: EMS Limitations: no limitations History of Present Illness ED Provider: NAVID MEZA Narrative: 33 yo female with PMH of DM, seizures on keppra, asthma, was at work this AM - states she took her pill this AM ate breakfast everything seemed okay and then felt weird at work the next thing she knew she was tired and in the bed. She last had a seizure on Sunday as well. She has headache, hit her head on the floor. No new illness, stress change in medications or any other concerns. Has only ever been on depakote. complaint: seizure Onset (ago): minute(s) ([employer]) Description of Episode: loss of consciousness Duration of episode: 5 -: minutes(s) Witnessed: Yes - by Bystander Trauma: Yes Seizure History: Yes Place: Work Possible Precipitating Event: none Associated symptoms: other (headache, tired, confused. ) Treatments prior to arrival: none Related Data Home Medications ?Medication ?Instructions ?Recorded ?Confirmed divalproex 500 mg tablet,extended 1 tab PO BID 12/29/22 07/30/23 release 24 hr albuterol sulfate 90 mcg/actuation 2 puff inhalation Q4-6H PRN 07/30/23 07/30/23 aerosol inhaler (Ventolin HFA) Shortness Of Breath divalproex 250 mg tablet,delayed 250 mg PO DAILY 07/30/23 07/30/23 release famotidine 20 mg tablet 20 mg PO BID 07/30/23 07/30/23 loratadine 10 mg tablet 10 mg PO DAILY 07/30/23 07/30/23 metformin 500 mg tablet 500 mg PO BIDWM 07/30/23 07/30/23 Previous Rx's ?Medication ?Instructions ?Recorded budesonide-formoterol HFA 160 2 puff inhalation BID 30 days 07/23/23 mcg-4.5 mcg/actuation aerosol #10.2 grams inhaler (Symbicort) ondansetron 4 mg disintegrating 4 mg PO Q8H PRN nausea and 07/23/23 tablet vomiting #20 tabs divalproex 250 mg tablet,extended 250 mg PO BEDTIME #30 tabs 07/31/23 release 24 hr amoxicillin 500 mg capsule 500 mg PO BID 10 days #20 caps 08/31/23 benzonatate 200 mg capsule 200 mg PO TID PRN cough #9 caps 10/06/23 diphenhydramine HCl 25 mg tablet 25 mg PO TID PRN itching #14 tabs 10/06/23 (Benadryl Allergy) hydrocortisone 2.5 % topical cream 1 appl topical TID PRN itching #20 10/06/23 grams ibuprofen 600 mg tablet 600 mg PO QID PRN pain #14 tabs 12/06/23 albuterol sulfate 90 mcg/actuation 2 inh inhalation Q4-6H PRN 12/27/23 breath activated powder inhaler shortness of breath or wheezing #1 ea benzonatate 100 mg capsule 100 mg PO BID PRN cough #20 caps 12/27/23 prednisone 20 mg tablet 20 mg PO DAILY 5 days #5 tabs 12/27/23 ibuprofen 400 mg tablet 400 mg PO TID PRN fever or pain 01/07/24 #30 tabs ondansetron 4 mg disintegrating 4 mg PO Q6-8H PRN nausea and 01/07/24 tablet vomiting #14 tabs acetaminophen 500 mg tablet 500 mg PO QID PRN fever or pain 04/09/24 #14 tabs cyclobenzaprine 10 mg tablet 10 mg PO TID PRN muscle spasm #10 04/09/24 tabs ibuprofen 600 mg tablet 600 mg PO TID PRN fever or pain 04/09/24 #14 tabs Allergies Allergy/AdvReac Type Severity Reaction Status Date / Time Iodinated Contrast Media Allergy Intermediate Facial Verified 05/12/24 11:01 Swelling clindamycin [CLINDAMYCIN] Allergy Unknown ANAPHYLAXIS Verified 05/12/24 11:01 latex Allergy Itching Verified 05/12/24 11:01 Review of Systems 2 Review of Systems: Constitutional : No Fever, No Chills, pos Fatigue ENT/Mouth : No sore throat, No Rhinorrhea Eyes: No Eye Pain, No Swelling, No Redness Cardiovascular : No Chest Pain, No SOB, No Dyspnea on Exertion Respiratory : No Cough, No Sputum Gastrointestinal : No Nausea, No Vomiting, No Diarrhea, No abdominal Pain Genitourinary : No Dysuria, No Urinary Frequency, No Hematuria, Musculoskeletal : No joint pain, No Myalgias, No Joint Swelling Skin : No Skin Lesions, No rash Neuro : No Weakness, No Numbness, No Dizziness, positive Headache Psych : No Anxiety/Panic, No Depression All other systems reviewed and are negative [facility] Past Medical History Attestation statement: The following information was validated with the patient. Source: old records reviewed Medical History Chronic allergic rhinitis Otitis media Hypoxia Viral pneumonia Infection due to human metapneumovirus (hMPV) Diabetes mellitus Epilepsy Surgical History Hx of cholecystectomy Social History Social History Household Members: Spouse and Children Housing: Apartment Do you presently have visiting nurse or other home services: No Alcohol intake: current Alcohol intake frequency: holidays/special occasions only Patient Tobacco Use Status: Never used Tobacco Smoked in Last 30 Days: No Use of substances other than those prescribed or required for medical reasons: No Advance Directives: Yes Advance Directives on File: Yes Advance Directives Date on File: 08/17/23 Do you have a plan to hurt others: No Plan Patient : No service: No Current occupational status: employed Physical Exam 2 Vital Signs: Vital Signs: Last Vital Signs Temp 98.7 F 05/12/24 11:03 Pulse 79 05/12/24 11:47 Resp 17 05/12/24 11:47 BP 124/41 L 05/12/24 11:47 Pulse Ox 96 05/12/24 11:47 O2 Del Method Room Air 05/12/24 11:47 BMI result Body Mass Index 35.0 Appearance: Alert. Oriented X3. No acute distress. Eyes: Pupils equal, round and reactive to light. ENT: Pharynx normal. R parietal scalp ttp no raccoon eyes no burns sign Neck: Normal inspection. Neck supple. CVS: Normal heart rate and rhythm. Pulses normal. Respiratory: No respiratory distress. Breath sounds normal. Abdomen: Soft and non-tender. Skin: Skin warm and dry. Normal skin color. Normal skin turgor. Extremities: No lower extremity edema. No calf ttp Neuro: Oriented X 3. No motor deficit. No sensory deficit. Course Course Course Narrative: signed out to Dr. Cartagena pending labs and imaging Medications Administered Discontinued Medications Generic Name Dose Route Start Last Admin Trade Name Romi PRN Reason Stop Dose Admin Lorazepam 1 mg 05/12/24 11:20 05/12/24 11:53 Lorazepam 2 Mg/Ml Vial IVPUSH 05/12/24 11:21 1 mg STAT STA Administration Medical Decision Making Medical Decision Making [facility] Narrative: 33 yo female with PMH of DM, seizures on keppra, asthma here with c/o seizure at work at this time will need basic labs, EKG, IVF, IV ativan check depakote level - may need to increase her depakote given her recurrence of seizures. Differential Diagnosis Differential Diagnoses: The differential diagnosis associated with the presentation includes seizures, non compliance, head injury Admission/Observation Consideration of admission/observation: Escalation of care including admission/observation considered Lab Data [facility] Lab Attestation statement: I reviewed the patient's lab results. 05/12/24 11:51 05/12/24 11:51 Labs: Lab Results 05/12/24 Range/Units 11:51 WBC 7.9 (4.8-10.8) X10*3/uL RBC 3.54 L (4.20-5.50) X10*6/uL Hgb 11.7 L (12.0-16.0) g/dl Hct 34.9 L (37.0-47.0) % MCV 98.6 H (80.0-98.0) fL MCH 33.1 H (27.0-33.0) pg MCHC 33.5 (31.0-35.0) g/dl RDW 13.2 (11.0-16.0) % Plt Count 272 (160-400) X10*3/uL MPV 10.4 (9.4-12.3) fL Immature Gran % (Auto) 0.9 H (0.0-0.4) % Neut % (Auto) 53.1 (45-73) % Lymph % (Auto) 37.5 (20-40) % [place] % (Auto) 8.0 (2-11) % Eos % (Auto) 0.1 (0-4) % Baso % (Auto) 0.4 (0-2) % Lymph # (Auto) 3.0 (1.2-4.9) X10*3/uL [place] # (Auto) 0.6 (0.1-1.2) X10*3/uL Eos # (Auto) 0.0 (0.0-0.4) X10*3/uL Baso # (Auto) 0.0 (0.0-0.2) X10*3/uL Abs Immat Gran (auto) 0.07 H (0.00-0.03) X10*3/uL Absolute Neuts (auto) 4.2 (2.0-8.3) x10*3/uL Absolute Nucleated RBC 0.000 (0.0-0.012) X10*3/uL Nucleated RBC % (auto) 0.0 (0.0-0.2) /100WBC Sodium 138 (135-145) mmol/L Potassium 4.7 (3.3-5.1) mmol/L Chloride 104 (96-108) mmol/L Carbon Dioxide 24 (22-29) mmol/L Anion Gap 15 (12-20) BUN 9 (9-16) mg/dL Creatinine 0.57 (0.5-1.4) mg/dL Estim Creat Clear Calc 133.9 Estimated GFR > 60 Random Glucose 107 (60-115) mg/dL Calcium 9.3 (8.4-10.2) mg/dL Magnesium 1.7 (1.6-2.6) mg/dL Total Bilirubin 0.2 (0.0-1.0) mg/dL Direct Bilirubin < 0.2 (0.0-0.5) mg/dL AST 18 (5-31) U/L ALT 18 (0-31) U/L Alkaline Phosphatase 51 (39-117) U/L Total Protein 7.2 (6.5-8.0) g/dL Albumin 3.9 (3.5-5.0) g/dL Lipase 34 (8-78) U/L Beta HCG, Quant < 2 mIU/mL Valproic Acid 82.4 (50.0-100.0) mcg/mL Independent Interpretation I performed an independent interpretation of an: EKG Interpretation: Rate: 83 Rhythm: NSR Anton: normal Normal P waves. Normal GARY. Normal QRS complex. ST T wave : normal no JERMAINE qTC: 411 prior studies: no acute ischemia The study has been interpreted contemporaneously by me. . Independent Historian Clinical information obtained from an independent historian. History obtained from or confirmed by: EMS External Record Review External record reviewed: Inpatient record Discharge Plan Discharge Clinical Impression: Breakthrough seizure Patient Disposition: Still a Patient Instructions: Epilepsy (ED) Prescriptions: No Action divalproex 500 mg tablet extended release 24 hr 1 tab PO BID amoxicillin 500 mg capsule 500 mg PO BID 10 Days Qty: 20 0RF ibuprofen 600 mg tablet 600 mg PO QID PRN (Reason: pain) Qty: 14 0RF prednisone 20 mg tablet 20 mg PO DAILY 5 Days Qty: 5 0RF benzonatate 100 mg capsule 100 mg PO BID PRN (Reason: cough) Qty: 20 0RF albuterol sulfate 90 mcg/actuation aerosol powdr breath activated 2 inh inhalation Q4-6H PRN (Reason: shortness of breath or wheezing) Qty: 1 0RF ibuprofen 400 mg tablet 400 mg PO TID PRN (Reason: fever or pain) Qty: 30 0RF ondansetron 4 mg tablet,disintegrating 4 mg PO Q6-8H PRN (Reason: nausea and vomiting) Qty: 14 0RF ibuprofen 600 mg tablet 600 mg PO TID PRN (Reason: fever or pain) Qty: 14 0RF acetaminophen 500 mg tablet 500 mg PO QID PRN (Reason: fever or pain) Qty: 14 0RF cyclobenzaprine 10 mg tablet 10 mg PO TID PRN (Reason: muscle spasm) Qty: 10 0RF ondansetron 4 mg tablet,disintegrating 4 mg PO Q8H PRN (Reason: nausea and vomiting) Qty: 20 0RF metformin 500 mg tablet 500 mg PO BIDWM famotidine 20 mg tablet 20 mg PO BID albuterol sulfate [Ventolin HFA] 90 mcg/actuation HFA aerosol inhaler 2 puff INHALATION Q4-6H PRN (Reason: Shortness Of Breath) loratadine 10 mg tablet 10 mg PO DAILY divalproex 250 mg tablet,delayed release (DR/EC) 250 mg PO DAILY divalproex 250 mg Tablet Extended Release 24 Hr 250 mg PO BEDTIME Qty: 30 0RF benzonatate 200 mg capsule 200 mg PO TID PRN (Reason: cough) Qty: 9 0RF hydrocortisone 2.5 % cream 1 appl topical TID PRN (Reason: itching) Qty: 20 0RF diphenhydramine HCl [Benadryl Allergy] 25 mg tablet 25 mg PO TID PRN (Reason: itching) Qty: 14 0RF budesonide-formoterol [Symbicort] 160-4.5 mcg/actuation HFA aerosol inhaler 2 puff inhalation BID 30 Days Qty: 10.2 11RF Print Language: Maldivian
--- NOTE | 2024-05-12 11:20 | ECG_ITS ---
Test Reason : seizure Blood Pressure : / mmHG Vent. Rate : 083 BPM Atrial Rate : 083 BPM P-R Int : 130 ms QRS Dur : 080 ms QT Int : 350 ms P-R-T Axes : 057 043 016 degrees QTc Int : 411 ms Normal sinus rhythm Normal ECG When compared with ECG of 09-FEB-2024 22:15, Nonspecific T wave abnormality no longer evident in Anterior leads Referred By: Zulay Lindo Electronically Signed By:GETACHEW ABBOTT MD
[2024-05-12 11:47] VITALS: BP 124/41; PULSE 79; RESP 17; O2SAT 96
[2024-05-12] MEDS: LORazepam 2 MG/ML VIAL 1 MG IVPUSH (11:53)
[2024-05-12 11:55] LABS: MANUAL DIFF FLAG NO
[2024-05-12 11:59] LABS: Basophils Percent Auto 0.4 % (0-2); Eosinophils Percent Auto 0.1 % (0-4); Hematocrit 34.9 % (37.0-47.0); Hemoglobin 11.7 g/dl (12.0-16.0); Imm Gran Abs Auto 0.07 X10*3/uL (0.00-0.03); Imm Gran Pct Auto 0.9 % (0.0-0.4); Lymphocytes Percent Auto 37.5 % (20-40); Mean Corpuscular HGB Conc 33.5 g/dl (31.0-35.0); Mean Corpuscular Hemoglobin 33.1 pg (27.0-33.0); Mean Corpuscular Volume 98.6 fL (80.0-98.0); Mean Platelet Volume 10.4 fL (9.4-12.3); Monocytes Absolute Auto 0.6 X10*3/uL (0.1-1.2); Neutrophils Absolute Auto 4.2 x10*3/uL (2.0-8.3); Neutrophils Percent Auto 53.1 % (45-73); Platelet Count 272 X10*3/uL (160-400); Red Blood Count 3.54 X10*6/uL (4.20-5.50); Red Cell Distribution Width 13.2 % (11.0-16.0); White Blood Count 7.9 X10*3/uL (4.8-10.8)
[2024-05-12 12:18] LABS: Valproate 82.4 mcg/mL (50.0-100.0)
[2024-05-12 12:31] LABS: Alanine Aminotransferase 18 U/L (0-31); Albumin Level 3.9 g/dL (3.5-5.0); Alkaline Phosphatase 51 U/L (39-117); Anion Gap 15 (12-20); Aspartate Amino Transferase 18 U/L (5-31); Bilirubin Direct < 0.2 mg/dL (0.0-0.5); Bilirubin Total 0.2 mg/dL (0.0-1.0); Blood Urea Nitrogen 9 mg/dL (9-16); Calcium 9.3 mg/dL (8.4-10.2); Carbon Dioxide 24 mmol/L (22-29); Chloride 104 mmol/L (96-108); Creatinine Clr Calc Pharmacy 133.9; Estimated Glomerular Filt Rate > 60; Glucose Random 107 mg/dL (60-115); HCG Quantitative < 2 mIU/mL; Lipase 34 U/L (8-78); Magnesium 1.7 mg/dL (1.6-2.6); Potassium 4.7 mmol/L (3.3-5.1); Sodium 138 mmol/L (135-145); Total Protein 7.2 g/dL (6.5-8.0)
[2024-05-12 13:45] LABS: Appearance Urine Clear; Color Urine Yellow; Glucose Urine UA Negative (Negative); Leukocyte Esterase Urine Negative (Negative); Nitrite Urine Negative (Negative); Urine Blood Negative (Negative); Urine Ketones Negative (Negative); Urine Protein Negative (Neg-Trace)
[2024-05-12 15:58] VITALS: BP 118/54; PULSE 84; RESP 18; TEMP 36.5; O2SAT 97
[2024-05-12 16:47] VITALS: BP 146/67; PULSE 67; RESP 19; O2SAT 96
[2024-05-12 17:01] VITALS: BP 114/37; PULSE 83; RESP 14; TEMP 36.5; O2SAT 99
== END 2024-05-12 17:06 | disposition home or self-care (01) ==
PROVIDERS: Emergency Medicine; Emergency Provider Internal Medicine; PCP Internal Medicine
DX: R56.9 Unspecified convulsions (principal); M54.2 Cervicalgia; R51.9 Headache, unspecified; R10.2 Pelvic and perineal pain; Z79.899 Other long term (current) drug therapy
CPT/HCPCS: 36415; 70450; 72125; 80048; 80076; 80164; 81003; 83690; 83735; 84702; 85025; 93005; 96374; 99284; J2060

== ENCOUNTER → 2024-05-12 11:20 | Outpatient (BNV) | payer MEDICAID, SELFPAY | PROVIDERS: Emergency Provider Internal Medicine; Visit Provider Internal Medicine Cardiovascular Disease | DX: R56.9 Unspecified convulsions (principal) | CPT/HCPCS: 93010 ==

== ENCOUNTER 2024-05-23 09:34 | Emergency (ER) | payer MEDICAID, SELFPAY ==
[2024-05-23 09:40] VITALS: BP 110/60; PULSE 100; O2SAT 95
[2024-05-23 09:45] VITALS: BP 119/62; PULSE 89; RESP 17; TEMP 36.9; O2SAT 97; BMI 28.9
[2024-05-23 09:50] LABS: Glucose, Whole Blood 182 mg/dL (60-115)
--- NOTE | 2024-05-23 09:59 | ED.SEIZURE ---
HPI - Seizure General Chief Complaint: Seizure Stated Complaint: SEIZURE Time Seen by Provider: 05/23/24 09:39 Source: patient and old records reviewed Mode of arrival: EMS Limitations: no limitations History of Present Illness ED Provider: NAVID HPI Narrative: 33 yo female with PMH of DM, seizures on depakote, asthma, follows with neurology at [facility] last seen March 16 states she has seizures twice a week and her neurologist is aware but they have not done anything yet. She still remains on depakote daily. She was at work today and they noted her spacing out and her eyes lower back and her arms shook - 5 to 8 minutes. She states she has a headache now no head trauma. She is compliant with medications. MD complaint: possible seizure Onset (ago): minute(s) (just [employer]) Description of Episode: loss of consciousness and other (UE shaking) Duration of episode: 5 -: minutes(s) Witnessed: Yes - by Bystander Trauma: No Seizure History: Yes Place: Work Possible Precipitating Event: none Associated symptoms: denies other symptoms Treatments prior to arrival: none Related Data Home Medications ?Medication ?Instructions ?Recorded ?Confirmed divalproex 500 mg tablet,extended 1 tab PO BID 12/29/22 07/30/23 release 24 hr albuterol sulfate 90 mcg/actuation 2 puff inhalation Q4-6H PRN 07/30/23 07/30/23 aerosol inhaler (Ventolin HFA) Shortness Of Breath divalproex 250 mg tablet,delayed 250 mg PO DAILY 07/30/23 07/30/23 release famotidine 20 mg tablet 20 mg PO BID 07/30/23 07/30/23 loratadine 10 mg tablet 10 mg PO DAILY 07/30/23 07/30/23 metformin 500 mg tablet 500 mg PO BIDWM 07/30/23 07/30/23 Previous Rx's ?Medication ?Instructions ?Recorded budesonide-formoterol HFA 160 2 puff inhalation BID 30 days 07/23/23 mcg-4.5 mcg/actuation aerosol #10.2 grams inhaler (Symbicort) ondansetron 4 mg disintegrating 4 mg PO Q8H PRN nausea and 07/23/23 tablet vomiting #20 tabs divalproex 250 mg tablet,extended 250 mg PO BEDTIME #30 tabs 07/31/23 release 24 hr amoxicillin 500 mg capsule 500 mg PO BID 10 days #20 caps 08/31/23 benzonatate 200 mg capsule 200 mg PO TID PRN cough #9 caps 10/06/23 diphenhydramine HCl 25 mg tablet 25 mg PO TID PRN itching #14 tabs 10/06/23 (Benadryl Allergy) hydrocortisone 2.5 % topical cream 1 appl topical TID PRN itching #20 10/06/23 grams ibuprofen 600 mg tablet 600 mg PO QID PRN pain #14 tabs 12/06/23 albuterol sulfate 90 mcg/actuation 2 inh inhalation Q4-6H PRN 12/27/23 breath activated powder inhaler shortness of breath or wheezing #1 ea benzonatate 100 mg capsule 100 mg PO BID PRN cough #20 caps 12/27/23 prednisone 20 mg tablet 20 mg PO DAILY 5 days #5 tabs 12/27/23 ibuprofen 400 mg tablet 400 mg PO TID PRN fever or pain 01/07/24 #30 tabs ondansetron 4 mg disintegrating 4 mg PO Q6-8H PRN nausea and 01/07/24 tablet vomiting #14 tabs acetaminophen 500 mg tablet 500 mg PO QID PRN fever or pain 04/09/24 #14 tabs cyclobenzaprine 10 mg tablet 10 mg PO TID PRN muscle spasm #10 04/09/24 tabs ibuprofen 600 mg tablet 600 mg PO TID PRN fever or pain 04/09/24 #14 tabs Allergies Allergy/AdvReac Type Severity Reaction Status Date / Time Iodinated Contrast Media Allergy Intermediate Facial Verified 05/23/24 09:58 Swelling clindamycin [CLINDAMYCIN] Allergy Unknown ANAPHYLAXIS Verified 05/23/24 09:58 latex Allergy Itching Verified 05/23/24 09:58 Review of Systems Review of Systems: Constitutional : No Fever, No Chills, No Fatigue ENT/Mouth : No sore throat, No Rhinorrhea Eyes: No Eye Pain, No Swelling, No Redness Cardiovascular : No Chest Pain, No SOB, No Dyspnea on Exertion Respiratory : No Cough, No Sputum Gastrointestinal : No Nausea, No Vomiting, No Diarrhea, No abdominal Pain Genitourinary : No Dysuria, No Urinary Frequency, No Hematuria, Musculoskeletal : No joint pain, No Myalgias, No Joint Swelling Skin : No Skin Lesions, No rash Neuro : No Weakness, No Numbness, No Dizziness, positive Headache Psych : No Anxiety/Panic, No Depression All other systems reviewed and are negative [facility] Past Medical History Attestation statement: The following information was validated with the patient. Source: old records reviewed Medical History Chronic allergic rhinitis Otitis media Hypoxia Viral pneumonia Infection due to human metapneumovirus (hMPV) Diabetes mellitus Epilepsy Surgical History Hx of cholecystectomy Social History Social History Household Members: Spouse and Children Housing: Apartment Do you presently have visiting nurse or other home services: No Alcohol intake: current Alcohol intake frequency: holidays/special occasions only Patient Tobacco Use Status: Never used Tobacco Advance Directives: Yes Advance Directives on File: Yes Advance Directives Date on File: 08/17/23 service: No Current occupational status: employed Physical Exam Vital Signs: Vital Signs: Last Vital Signs Temp 98.4 F 05/23/24 09:45 Pulse 88 05/23/24 10:15 Resp 18 05/23/24 10:15 BP 114/44 L 05/23/24 10:15 Pulse Ox 98 05/23/24 10:15 O2 Del Method Room Air 05/23/24 10:15 BMI result Body Mass Index 28.9 Appearance: Alert. Oriented X3. No acute distress. Eyes: Pupils equal, round and reactive to light. ENT: Pharynx normal. no tongue biting Neck: Normal inspection. Neck supple. no meningeal signs CVS: Normal heart rate and rhythm. Pulses normal. Respiratory: No respiratory distress. Breath sounds normal. Abdomen: Soft and nontender. Skin: Skin warm and dry. Normal skin color. Extremities: No lower extremity edema. Neuro: Oriented X 3. No motor deficit. No sensory deficit. Course Course Course Narrative: per review of [facility] records same presentation in February blinding hand shaking then 5 minutes of passing out had one of these events while undergoing EEG no seizure activity noted. she had 5 day EEG done dx at that time with non-epileptic seizures Medications Administered Discontinued Medications Generic Name Dose Route Start Last Admin Trade Name Freq PRN Reason Stop Dose Admin Acetaminophen 975 mg 05/23/24 09:58 05/23/24 10:17 Acetaminophen 325 Mg Tablet PO 05/23/24 09:59 975 mg ONCE ONE Administration Medical Decision Making Medical Decision Making [facility] Narrative: 33 yo female with PMH of DM, seizures on depakote, asthma, follows with neurology at [facility] just seen 05/12 for similar event she has no incontinence or tongue biting for 5 to 8 min seizure just seen for same at this time will obtain labs, records from [facility] - she reports compliance with her home meds. No head trauma. May need additional seizure medication vs reassurance if non epileptic Differential Diagnosis Differential Diagnoses: The differential diagnosis associated with the presentation includes seizure, non epileptic seizure Admission/Observation Consideration of admission/observation: Escalation of care including admission/observation considered suspect non epileptic seizure not postictal here no signs of seizure therapeutic not acidotic Lab Data [facility] Lab Attestation statement: I reviewed the patient's lab results. 05/23/24 10:14 05/23/24 10:14 Labs: Lab Results 05/23/24 05/23/24 Range/Units 09:45 10:14 WBC 6.6 (4.8-10.8) X10*3/uL RBC 3.45 L (4.20-5.50) X10*6/uL Hgb 11.5 L (12.0-16.0) g/dl Hct 34.2 L (37.0-47.0) % MCV 99.1 H (80.0-98.0) fL MCH 33.3 H (27.0-33.0) pg MCHC 33.6 (31.0-35.0) g/dl RDW 13.2 (11.0-16.0) % Plt Count 269 (160-400) X10*3/uL MPV 10.4 (9.4-12.3) fL Immature Gran % (Auto) 0.3 (0.0-0.4) % Neut % (Auto) 51.9 (45-73) % Lymph % (Auto) 40.5 H (20-40) % [place] % (Auto) 6.5 (2-11) % Eos % (Auto) 0.3 (0-4) % Baso % (Auto) 0.5 (0-2) % Lymph # (Auto) 2.7 (1.2-4.9) X10*3/uL [place] # (Auto) 0.4 (0.1-1.2) X10*3/uL Eos # (Auto) 0.0 (0.0-0.4) X10*3/uL Baso # (Auto) 0.0 (0.0-0.2) X10*3/uL Abs Immat Gran (auto) 0.02 (0.00-0.03) X10*3/uL Absolute Neuts (auto) 3.5 (2.0-8.3) x10*3/uL Absolute Nucleated RBC 0.000 (0.0-0.012) X10*3/uL Nucleated RBC % (auto) 0.0 (0.0-0.2) /100WBC Sodium 138 (135-145) mmol/L Potassium 4.3 (3.3-5.1) mmol/L Chloride 105 (96-108) mmol/L Carbon Dioxide 21 L (22-29) mmol/L Anion Gap 16 (12-20) BUN 9 (9-16) mg/dL Creatinine 0.58 (0.5-1.4) mg/dL Estim Creat Clear Calc 144.4 Estimated GFR > 60 POC Glucose 182 H (60-115) mg/dL Random Glucose 164 H (60-115) mg/dL Calcium 8.6 D (8.4-10.2) mg/dL Magnesium 1.8 (1.6-2.6) mg/dL Valproic Acid 93.5 (50.0-100.0) mcg/mL Independent Historian Clinical information obtained from an independent historian. History obtained from or confirmed by: EMS External Record Review External record reviewed: Inpatient record and Outpatient record Discharge Plan Discharge Clinical Impression: Seizure disorder Patient Disposition: Home, Self-Care Instructions: Epilepsy (ED) Additional Instructions: labs reassuring, depakote normal at this time suspect based off prior events and recent EEG stress induced seizure contineu to follo with your neurologist Prescriptions: No Action divalproex 500 mg tablet extended release 24 hr 1 tab PO BID amoxicillin 500 mg capsule 500 mg PO BID 10 Days Qty: 20 0RF ibuprofen 600 mg tablet 600 mg PO QID PRN (Reason: pain) Qty: 14 0RF prednisone 20 mg tablet 20 mg PO DAILY 5 Days Qty: 5 0RF benzonatate 100 mg capsule 100 mg PO BID PRN (Reason: cough) Qty: 20 0RF albuterol sulfate 90 mcg/actuation aerosol powdr breath activated 2 inh inhalation Q4-6H PRN (Reason: shortness of breath or wheezing) Qty: 1 0RF ibuprofen 400 mg tablet 400 mg PO TID PRN (Reason: fever or pain) Qty: 30 0RF ondansetron 4 mg tablet,disintegrating 4 mg PO Q6-8H PRN (Reason: nausea and vomiting) Qty: 14 0RF ibuprofen 600 mg tablet 600 mg PO TID PRN (Reason: fever or pain) Qty: 14 0RF acetaminophen 500 mg tablet 500 mg PO QID PRN (Reason: fever or pain) Qty: 14 0RF cyclobenzaprine 10 mg tablet 10 mg PO TID PRN (Reason: muscle spasm) Qty: 10 0RF ondansetron 4 mg tablet,disintegrating 4 mg PO Q8H PRN (Reason: nausea and vomiting) Qty: 20 0RF metformin 500 mg tablet 500 mg PO BIDWM famotidine 20 mg tablet 20 mg PO BID albuterol sulfate [Ventolin HFA] 90 mcg/actuation HFA aerosol inhaler 2 puff INHALATION Q4-6H PRN (Reason: Shortness Of Breath) loratadine 10 mg tablet 10 mg PO DAILY divalproex 250 mg tablet,delayed release (DR/EC) 250 mg PO DAILY divalproex 250 mg Tablet Extended Release 24 Hr 250 mg PO BEDTIME Qty: 30 0RF benzonatate 200 mg capsule 200 mg PO TID PRN (Reason: cough) Qty: 9 0RF hydrocortisone 2.5 % cream 1 appl topical TID PRN (Reason: itching) Qty: 20 0RF diphenhydramine HCl [Benadryl Allergy] 25 mg tablet 25 mg PO TID PRN (Reason: itching) Qty: 14 0RF budesonide-formoterol [Symbicort] 160-4.5 mcg/actuation HFA aerosol inhaler 2 puff inhalation BID 30 Days Qty: 10.2 11RF Print Language: Maltese
[2024-05-23 10:15] VITALS: BP 114/44; PULSE 88; RESP 18; O2SAT 98
[2024-05-23] MEDS: Acetaminophen 325 MG TABLET 975 MG PO (10:17)
[2024-05-23 10:18] LABS: MANUAL DIFF FLAG NO
--- NOTE | 2024-05-23 10:19 | PC.NURSE ---
Pt tolerated PO meds and water without incident.
[2024-05-23 10:20] LABS: Basophils Percent Auto 0.5 % (0-2); Eosinophils Percent Auto 0.3 % (0-4); Hematocrit 34.2 % (37.0-47.0); Hemoglobin 11.5 g/dl (12.0-16.0); Imm Gran Abs Auto 0.02 X10*3/uL (0.00-0.03); Imm Gran Pct Auto 0.3 % (0.0-0.4); Lymphocytes Absolute Auto 2.7 X10*3/uL (1.2-4.9); Lymphocytes Percent Auto 40.5 % (20-40); Mean Corpuscular HGB Conc 33.6 g/dl (31.0-35.0); Mean Corpuscular Hemoglobin 33.3 pg (27.0-33.0); Mean Corpuscular Volume 99.1 fL (80.0-98.0); Mean Platelet Volume 10.4 fL (9.4-12.3); Monocytes Absolute Auto 0.4 X10*3/uL (0.1-1.2); Monocytes Percent Auto 6.5 % (2-11); Neutrophils Absolute Auto 3.5 x10*3/uL (2.0-8.3); Neutrophils Percent Auto 51.9 % (45-73); Platelet Count 269 X10*3/uL (160-400); Red Blood Count 3.45 X10*6/uL (4.20-5.50); Red Cell Distribution Width 13.2 % (11.0-16.0); White Blood Count 6.6 X10*3/uL (4.8-10.8)
[2024-05-23 10:48] LABS: Valproate 93.5 mcg/mL (50.0-100.0)
[2024-05-23 10:51] LABS: Anion Gap 16 (12-20); Blood Urea Nitrogen 9 mg/dL (9-16); Calcium 8.6 mg/dL (8.4-10.2); Carbon Dioxide 21 mmol/L (22-29); Chloride 105 mmol/L (96-108); Creatinine Clr Calc Pharmacy 144.4; Estimated Glomerular Filt Rate > 60; Glucose Random 164 mg/dL (60-115); Magnesium 1.8 mg/dL (1.6-2.6); Potassium 4.3 mmol/L (3.3-5.1); Sodium 138 mmol/L (135-145)
[2024-05-23 12:04] VITALS: BP 112/48; PULSE 78; RESP 16; O2SAT 96
[2024-05-23 12:58] VITALS: BP 112/48; PULSE 78; RESP 16; TEMP 36.9; O2SAT 96
== END 2024-05-23 12:59 | disposition home or self-care (01) ==
PROVIDERS: Emergency Provider Emergency Medicine; PCP Internal Medicine
DX: G40.909 Epilepsy, unspecified, not intractable, without status epilepticus (principal); E11.9 Type 2 diabetes mellitus without complications; J45.909 Unspecified asthma, uncomplicated; Z79.899 Other long term (current) drug therapy; Z79.84 Long term (current) use of oral hypoglycemic drugs
CPT/HCPCS: 36415; 80048; 80164; 82947; 83735; 85025; 99283; 99284

== ENCOUNTER 2024-06-07 16:06 | Inpatient (IN) | payer MEDICAID, SELFPAY ==
--- NOTE | ~2024-06-07 | XR_ITS ---
EXAMINATION: XR CHEST CLINICAL INFORMATION: Seizures COMPARISON: 08/31/2023 TECHNIQUE: Frontal view of the chest was obtained. FINDINGS: No significant abnormality is noted involving the heart, lungs, mediastinum, bony thorax or soft tissues. XR/XR chest 1V IMPRESSION: Unremarkable examination.
--- NOTE | ~2024-06-07 | CT_ITS ---
EXAMINATION: CT HEAD WITHOUT CONTRAST CLINICAL INFORMATION: Headache and seizures COMPARISON: 05/12/2024 TECHNIQUE: Contiguous axial imaging was performed from the skull base to vertex without intravenous administration of contrast. This CT examination was performed using dose optimization techniques as appropriate, variously including the following: *Automated exposure control *Adjustment of mA and/or kV according to patient size (this includes techniques or standardized protocols for targeted exams where dose is matched to indication/reason for exam; i.e. extremities or head) *Use of iterative reconstruction technique DLP: 579 mGy-cm FINDINGS: There is no interval change in appearance of normal brain parenchyma with normal attenuation. Graves-white matter differentiation is preserved. There is no intracranial hemorrhage, masses, mass effect or territorial strokes. Ventricles and sulci are appropriate for age there is no hydrocephalus or extra-axial fluid collection seen. Calvarium is unremarkable and paranasal sinuses and mastoids are well aerated. CT/CT head/brain wo IV con IMPRESSION: No acute abnormalities
--- NOTE | ~2024-06-07 | CT_ITS ---
EXAMINATION: CT HEAD WITHOUT CONTRAST CLINICAL INFORMATION: Blurred vision. COMPARISON: None available. TECHNIQUE: Contiguous axial imaging was performed from the skull base to vertex without intravenous administration of contrast. This CT examination was performed using dose optimization techniques as appropriate, variously including the following: *Automated exposure control *Adjustment of mA and/or kV according to patient size (this includes techniques or standardized protocols for targeted exams where dose is matched to indication/reason for exam; i.e. extremities or head) *Use of iterative reconstruction technique DLP: 1370 mGy-cm FINDINGS: The lateral, third and fourth ventricles are normally outlined. The cortical sulci and basal cisterns are normally outlined as well. There is no acute territorial defect, hemorrhage or midline shift. The extra-axial spaces are unremarkable. Calvarium/scalp: Intact. Maxillofacial sinuses and mastoids: Clear as visualized. CT/CT head/brain wo IV con IMPRESSION: No acute intracranial pathology.
--- NOTE | ~2024-06-07 | CT_ITS ---
EXAMINATION: CT ABDOMEN AND PELVIS WITHOUT CONTRAST CLINICAL INFORMATION: Epigastric and left upper quadrant abdominal pain, nausea and vomiting COMPARISON: 05/08/2024 TECHNIQUE: Multidetector volumetric imaging was performed from the superior aspect of the liver through the pubic symphysis. Sagittal and coronal reformatted images were obtained on the technologist's workstation. This CT examination was performed using dose optimization techniques as appropriate, variously including the following: *Automated exposure control *Adjustment of mA and/or kV according to patient size (this includes techniques or standardized protocols for targeted exams where dose is matched to indication/reason for exam; i.e. extremities or head) *Use of iterative reconstruction technique DLP: 460 mGy-cm FINDINGS: LUNG BASES: Bibasilar atelectasis present. LIVER, GALLBLADDER, AND BILIARY TREE: Liver is of low attenuation due to hepatic steatosis, enlarged without intrahepatic masses or ductal dilatation. Gallbladder is surgically absent. PANCREAS: Unremarkable. SPLEEN: Unremarkable. ADRENAL GLANDS: Unremarkable. KIDNEYS AND URETERS: The kidneys are normal in size, shape, and attenuation. No hydronephrosis, hydroureter, or calculi seen. No perinephric stranding. BLADDER: Unremarkable. GASTROINTESTINAL TRACT: Stomach distended by residual food. Loops of small bowel and colon are unremarkable. Appendix is normal. There is no diverticulitis or diverticulosis seen. ABDOMINAL WALL: There is small fat-containing umbilical hernia. LYMPH NODES: Normal. VASCULAR: Unremarkable. PELVIC VISCERA: Uterus is unremarkable. The left and right adnexa are stable since previous study and there is no fluid in cul-de-sac OSSEOUS STRUCTURES: Unremarkable. CT/CT abdomen pelvis wo IV con IMPRESSION: No explanation for abdominal pain. Hepatomegaly and hepatic steatosis. Fleischner guidelines were followed.
[2024-06-07 16:15] VITALS: BP 113/71; PULSE 114; O2SAT 99
[2024-06-07 16:21] VITALS: BP 127/69; PULSE 88; RESP 16; TEMP 36.9; O2SAT 98; BMI 32.4
[2024-06-07 16:23] VITALS: BP 127/69; PULSE 88; RESP 18; TEMP 36.7; O2SAT 98
--- NOTE | 2024-06-07 16:48 | ECG_ITS ---
Test Reason : lue pain Blood Pressure : / mmHG Vent. Rate : 096 BPM Atrial Rate : 096 BPM P-R Int : 134 ms QRS Dur : 084 ms QT Int : 356 ms P-R-T Axes : 057 058 009 degrees QTc Int : 449 ms Normal sinus rhythm Nonspecific T wave abnormality Abnormal ECG When compared with ECG of 12-MAY-2024 12:03, Nonspecific T wave abnormality now evident in Anterior leads Referred By: Aurea Levine Electronically Signed By:GETACHEW ABBOTT MD
[2024-06-07] MEDS: LORazepam 2 MG/ML VIAL IVPUSH ×2 (16:49→21:40)
--- NOTE | 2024-06-07 16:58 | ED_ITS ---
HPI - Seizure General Chief Complaint: Seizure Stated Complaint: from restaurant, post ictal after sz, IV started Time Seen by Provider: 06/07/24 16:26 Source: patient, EMS, RN notes reviewed and old records reviewed Mode of arrival: EMS History of Present Illness ED Provider: Aurea Levine PA-C HPI Narrative: 33-year-old female with a past medical history diabetes, epilepsy on Depakote, asthma, presenting to the ED via EMS s/p 3 witnessed seizures CERTIFIED INDUSTRIAL HYGIENIST lasting about 3 minutes each. Patient states she was out to dinner with family while eating began to feel sick with abdominal pain, nausea, vomiting, and left shoulder/LUE pain. Patient reports she felt seizure aura, no head trauma, family lowered to ground. Reports compliance with Depakote, denies missing any doses. Does report slight headache. Denies CP/SOB, diarrhea, sick contacts, fever. Reports missed Neurology appointment recently due to COVID-19, denies recent changes to medications MD complaint: seizure Seizure History: Yes Place: Outdoors Related Data Home Medications ?Medication ?Instructions ?Recorded ?Confirmed divalproex 500 mg tablet,extended 1 tab PO BID 12/29/22 07/30/23 release 24 hr albuterol sulfate 90 mcg/actuation 2 puff inhalation Q4-6H PRN 07/30/23 07/30/23 aerosol inhaler (Ventolin HFA) Shortness Of Breath divalproex 250 mg tablet,delayed 250 mg PO DAILY 07/30/23 07/30/23 release famotidine 20 mg tablet 20 mg PO BID 07/30/23 07/30/23 loratadine 10 mg tablet 10 mg PO DAILY 07/30/23 07/30/23 metformin 500 mg tablet 500 mg PO BIDWM 07/30/23 07/30/23 Previous Rx's ?Medication ?Instructions ?Recorded budesonide-formoterol HFA 160 2 puff inhalation BID 30 days 07/23/23 mcg-4.5 mcg/actuation aerosol #10.2 grams inhaler (Symbicort) ondansetron 4 mg disintegrating 4 mg PO Q8H PRN nausea and 07/23/23 tablet vomiting #20 tabs divalproex 250 mg tablet,extended 250 mg PO BEDTIME #30 tabs 07/31/23 release 24 hr amoxicillin 500 mg capsule 500 mg PO BID 10 days #20 caps 08/31/23 benzonatate 200 mg capsule 200 mg PO TID PRN cough #9 caps 10/06/23 diphenhydramine HCl 25 mg tablet 25 mg PO TID PRN itching #14 tabs 10/06/23 (Benadryl Allergy) hydrocortisone 2.5 % topical cream 1 appl topical TID PRN itching #20 10/06/23 grams ibuprofen 600 mg tablet 600 mg PO QID PRN pain #14 tabs 12/06/23 albuterol sulfate 90 mcg/actuation 2 inh inhalation Q4-6H PRN 12/27/23 breath activated powder inhaler shortness of breath or wheezing #1 ea benzonatate 100 mg capsule 100 mg PO BID PRN cough #20 caps 12/27/23 prednisone 20 mg tablet 20 mg PO DAILY 5 days #5 tabs 12/27/23 ibuprofen 400 mg tablet 400 mg PO TID PRN fever or pain 01/07/24 #30 tabs ondansetron 4 mg disintegrating 4 mg PO Q6-8H PRN nausea and 01/07/24 tablet vomiting #14 tabs acetaminophen 500 mg tablet 500 mg PO QID PRN fever or pain 04/09/24 #14 tabs cyclobenzaprine 10 mg tablet 10 mg PO TID PRN muscle spasm #10 04/09/24 tabs ibuprofen 600 mg tablet 600 mg PO TID PRN fever or pain 04/09/24 #14 tabs Allergies Allergy/AdvReac Type Severity Reaction Status Date / Time Iodinated Contrast Media Allergy Intermediate Facial Verified 06/07/24 16:22 Swelling clindamycin [CLINDAMYCIN] Allergy Unknown ANAPHYLAXIS Verified 06/07/24 16:22 latex Allergy Itching Verified 06/07/24 16:22 Review of Systems 2 Review of Systems: Constitutional: No Fever, No Chills ENT/Mouth: No Ear Pain, No Nasal Congestion,No sore throat, No Rhinorrhea, No Swallowing Difficulty Cardiovascular: No Chest Pain, No SOB Respiratory: No Cough, No Sputum, No Wheezing Gastrointestinal: + Nausea,+ Vomiting, No Diarrhea, No Constipation, + Abdominal pain Genitourinary: No Dysuria, No Urinary Frequency, No Hematuria, No Urinary Incontinence/retention, No Urgency, No Flank Pain Musculoskeletal: + joint pain, No Myalgias, No Joint Swelling Skin: No Skin Lesions, No rash Neuro: No Weakness, No Numbness, No Paresthesias, +seizure Yes all other systems are reviewed and are negative Constitutional: Constitutional: Reports as per [facility] Past Medical History Attestation statement: The following information was validated with the patient. Source: old records reviewed Medical History Chronic allergic rhinitis Otitis media Hypoxia Viral pneumonia Infection due to human metapneumovirus (hMPV) Diabetes mellitus Epilepsy Surgical History Hx of cholecystectomy Social History Social History Household Members: Spouse and Children Housing: Apartment Do you presently have visiting nurse or other home services: No Alcohol intake: current Alcohol intake frequency: holidays/special occasions only Patient Tobacco Use Status: Never used Tobacco Smoked in Last 30 Days: No Use of substances other than those prescribed or required for medical reasons: No Advance Directives: Yes Advance Directives on File: Yes Advance Directives Date on File: 08/17/23 Do you have a plan to hurt others: No Plan Patient : No service: No Current occupational status: employed Physical Exam 2 Vital Signs: Vital Signs: Last Vital Signs Temp 98.1 F 06/07/24 16:23 Pulse 86 06/07/24 19:36 Resp 18 06/07/24 19:36 BP 108/58 L 06/07/24 19:36 Pulse Ox 100 06/07/24 19:36 O2 Del Method Room Air 06/07/24 19:36 BMI result Body Mass Index 32.4 Const: General: cooperative and no acute distress Limitations: no limitations HEENT: Head: Yes normal to inspection and Yes atraumatic Ears: hearing grossly normal bilaterally General nose exam: Normal external nose present Face and sinus: Yes normal facial exam Throat: Yes posterior oropharynx normal Eyes: General: appearance normal, both eyes and all related structures P upils: Equal, round and reactive pupils present EOM: EOMs intact bilaterally Neck: Neck: Yes normal visual inspection and Yes no meningeal signs Resp: Effort & Inspection: normal respiratory effort and no respiratory distress Auscultation: no crackles, no wheezes and diminished lung sounds diffuse Cardio: Rate: regular rate Heart sounds: S1 normal heart sound present and S2 normal heart sound present GI: Inspection: Yes normal to inspection Palpation (GI): Soft to palpation, Tenderness to palpation present (GI) in the epigastrum and in the LUQ; with no rebound tenderness, no guarding and not rigid : General: Yes no CVA tenderness Back/Spine/Pelvis: Other: No midline cervical/thoracic/lumbar spinous tenderness/step-off or deformity Back: no CVA tenderness Skin: Rashes: no rashes Wounds: no wounds Neuro: General: tone normal, moves all extremities, no meningeal signs, no focal motor deficits and CN's II-XI intact bilaterally Cranial nerves: Yes CN's II-XII intact bilaterally and Yes Equal, round and reactive pupils present Motor exam (neuro): Abnormal motor strength present (4/5) left upper extremity Coordination: [id number] test normal Romberg Test: Negative Extrem: General: Yes normal to inspection NIH Stroke Scale Level of Consciousness: Alert Level of Consciousness Questions: Answers both questions correctly Level of Consciousness Commands: Performs both tasks correctly Best Gaze: Normal Visual: No visual loss Facial Palsy: Normal Motor Arm (Right): No drift Motor Arm (Left): No drift Motor Leg (Right): No drift Motor Leg (Left): No drift Limb Ataxia: Absent Sensory: Normal Best Language: No aphasia Dysarthia: Normal Extinction and Inattention: No abnormality Score: 0 Course Course Course Narrative: -[id number]--on this expert medical writer's evaluation of patient she began to witnessed seizure in the ED followed by nausea/vomiting and postictal state. -180--no leukocytosis. lactic acid 3.6 > suspected from seizure activity. Low suspicion for severe sepsis. AST/ALT chronically elevated. Troponin negative -valproic acid level therapeutic > will load with Keppra CT head/brain wo IV con IMPRESSION: No acute abnormalities XR chest 1V IMPRESSION: Unremarkable examination. CT abdomen pelvis wo IV con IMPRESSION: No explanation for abdominal pain. Hepatomegaly and hepatic steatosis. Fleischner guidelines were followed > plan to admit for further management Medications Administered Discontinued Medications Generic Name Dose Route Start Last Admin Trade Name Freq PRN Reason Stop Dose Admin Sodium Chloride 1,000 mls @ 999 mls/hr 06/07/24 17:00 06/07/24 18:00 Ns IV 06/07/24 18:00 Infused .Q1H1M NAVEEN Infusion Sodium Chloride 1,000 mls @ 999 mls/hr 06/07/24 18:00 06/07/24 20:29 Ns IV 06/07/24 19:00 Infused .Q1H1M NAVEEN Infusion Levetiracetam 1,000 mg in 100 mls @ 400 mls/hr 06/07/24 18:03 06/07/24 19:51 Keppra IV 06/07/24 18:17 Infused ONCE ONE Infusion Lorazepam 2 mg 06/07/24 16:44 06/07/24 16:49 Lorazepam 2 Mg/Ml Vial IVPUSH 06/07/24 16:45 2 mg ONCE ONE Administration Medical Decision Making Medical Decision Making MDM Narrative: 33-year-old female with a past medical history diabetes, epilepsy on Depakote, asthma, presenting to the ED via EMS s/p 3 witnessed seizures CERTIFIED INDUSTRIAL HYGIENIST lasting about 3 minutes each. On exam vital signs stable, NAD, nontoxic appearing, LUE with 4/5 strength compared to RUE. No other focal neuro deficits. No evidence of trauma. Abdomen soft with epigastric/LUQ tenderness, no rebound/guarding. Concern for seizure disorder/epilepsy vs infectious etiology vs pancreatitis vs gastroenteritis/food poisoning vs metabolic abnormalities. ICH/CVA on differential however lower, suspect Ramesh paralysis. Lower suspicion for atypical ACS Plan: EKG, labs, UA, tox screen, CXR, head CT, CT AP Please refer to course for remaining clinical decision making, interpretation of labs/imaging results, and discussions with consultants and/or family members. Differential Diagnosis Differential Diagnoses: The differential diagnosis associated with the presentation includes As above Admission/Observation Consideration of admission/observation: Escalation of care including admission/observation considered Consult Healthcare Provider Management of the patient was discussed with: Hospitalist Lab Data [facility] Lab Attestation statement: I reviewed the patient's lab results. 06/07/24 17:11 06/07/24 17:11 Labs: Lab Results 06/07/24 06/07/24 Range/Units 16:50 17:11 WBC 6.9 (4.8-10.8) X10*3/uL RBC 3.84 L (4.20-5.50) X10*6/uL Hgb 12.7 (12.0-16.0) g/dl Hct 37.5 (37.0-47.0) % MCV 97.7 (80.0-98.0) fL MCH 33.1 H (27.0-33.0) pg MCHC 33.9 (31.0-35.0) g/dl RDW 13.1 (11.0-16.0) % Plt Count 277 (160-400) X10*3/uL MPV 10.4 (9.4-12.3) fL Immature Gran % (Auto) 0.3 (0.0-0.4) % Neut % (Auto) 58.6 (45-73) % Lymph % (Auto) 33.5 (20-40) % [place] % (Auto) 7.1 (2-11) % Eos % (Auto) 0.1 (0-4) % Baso % (Auto) 0.4 (0-2) % Lymph # (Auto) 2.3 (1.2-4.9) X10*3/uL [place] # (Auto) 0.5 (0.1-1.2) X10*3/uL Eos # (Auto) 0.0 (0.0-0.4) X10*3/uL Baso # (Auto) 0.0 (0.0-0.2) X10*3/uL Abs Immat Gran (auto) 0.02 (0.00-0.03) X10*3/uL Absolute Neuts (auto) 4.1 (2.0-8.3) x10*3/uL Absolute Nucleated RBC 0.000 (0.0-0.012) X10*3/uL Nucleated RBC % (auto) 0.0 (0.0-0.2) /100WBC PT 12.4 (11.1-13.3) SEC INR 1.0 (0.9-1.1) Sodium 140 (135-145) mmol/L Potassium 3.8 (3.3-5.1) mmol/L Chloride 100 (96-108) mmol/L Carbon Dioxide 27 (22-29) mmol/L Anion Gap 17 (12-20) BUN 12 (9-16) mg/dL Creatinine 0.72 (0.5-1.4) mg/dL Estim Creat Clear Calc 101.7 Estimated GFR > 60 Random Glucose 101 (60-115) mg/dL Lactic Acid 3.6 H* (0.5-2.0) mmol/L Calcium 9.4 D (8.4-10.2) mg/dL Magnesium 1.6 (1.6-2.6) mg/dL Total Bilirubin 0.5 (0.0-1.0) mg/dL Direct Bilirubin 0.2 (0.0-0.5) mg/dL AST 55 H (5-31) U/L ALT 64 H (0-31) U/L Alkaline Phosphatase 53 (39-117) U/L Troponin I High Sens < 2.7 (<3.5-17.0) ng/L Total Protein 8.1 H (6.5-8.0) g/dL Albumin 4.3 (3.5-5.0) g/dL Lipase 32 (8-78) U/L Beta HCG, Quant < 2 mIU/mL Urine Color Dark Yellow Urine Appearance Clear Urine pH 5.5 (5.0-9.0) Ur Specific [place] 1.020 (1.005-1.025) Urine Protein Negative (Neg-Trace) mg/dL Urine Glucose (UA) Negative (Negative) mg/dL Urine Ketones Trace (Negative) mg/dL Urine Blood Negative (Negative) Urine Nitrite Negative (Negative) Ur Leukocyte Esterase Negative (Negative) Urine Test NEGATIVE (NEGATIVE) Valproic Acid 90.4 (50.0-100.0) mcg/mL Ethyl Alcohol < 10 mg/dL Influenza Type A (PCR) NEGATIVE (Negative) Influenza Type B (PCR) NEGATIVE (Negative) RSV RNA Qual (PCR) NEGATIVE (Negative) SARS-CoV-2 RNA (RT-PCR) NEGATIVE (Negative) Independent Interpretation I performed an independent interpretation of an: EKG, Plain X-Ray and CT Scan Radiology Impression Discussion of test interpretation with radiology: I have reviewed the radiologist's reading. Independent Historian Clinical information obtained from an independent historian. History obtained from or confirmed by: Spouse and EMS External Record Review External record reviewed: Inpatient record, Office record, Outpatient record, Prior outpatient labs, Prior outpatient radiology, Primary care record and Outside ED record Tests considered The following testing was considered but not selected: As above Chronic Conditions Patient?s care impacted by: Diabetes and Other (Seizure disorder) Critical Care Time Critical Care Time Critical Care Time: Yes Total Critical Care Time: 45 Attestation: I have personally provided critical care time exclusive of time spent on separately billable procedures. Time includes review of lab data, radiology results, discussion with consultants, and monitoring for potential decompensation. Intervention performed as documented. Discharge Plan Discharge Clinical Impression: Seizure Patient Disposition: Admitted As Inpatient Print Language: Kenyan
[2024-06-07 17:03] LABS: Appearance Urine Clear; Color Urine Dark Yellow; Glucose Urine UA Negative (Negative); Leukocyte Esterase Urine Negative (Negative); Nitrite Urine Negative (Negative); PH 5.5 (5.0-9.0); Urine Blood Negative (Negative); Urine Ketones Trace mg/dL (Negative); Urine Protein Negative (Neg-Trace)
[2024-06-07] MEDS: 0.9 % Sodium Chloride 1,000 ML 999 ML IV ×2 (17:03→19:35)
[2024-06-07 17:04] LABS: UPreg QC Valid YES; Urine Pregnancy NEGATIVE (NEGATIVE)
[2024-06-07 17:16] LABS: MANUAL DIFF FLAG NO
[2024-06-07 17:19] LABS: Basophils Percent Auto 0.4 % (0-2); Eosinophils Percent Auto 0.1 % (0-4); Hematocrit 37.5 % (37.0-47.0); Hemoglobin 12.7 g/dl (12.0-16.0); Imm Gran Abs Auto 0.02 X10*3/uL (0.00-0.03); Imm Gran Pct Auto 0.3 % (0.0-0.4); Lymphocytes Absolute Auto 2.3 X10*3/uL (1.2-4.9); Lymphocytes Percent Auto 33.5 % (20-40); Mean Corpuscular HGB Conc 33.9 g/dl (31.0-35.0); Mean Corpuscular Hemoglobin 33.1 pg (27.0-33.0); Mean Corpuscular Volume 97.7 fL (80.0-98.0); Mean Platelet Volume 10.4 fL (9.4-12.3); Monocytes Absolute Auto 0.5 X10*3/uL (0.1-1.2); Monocytes Percent Auto 7.1 % (2-11); Neutrophils Absolute Auto 4.1 x10*3/uL (2.0-8.3); Neutrophils Percent Auto 58.6 % (45-73); Platelet Count 277 X10*3/uL (160-400); Red Blood Count 3.84 X10*6/uL (4.20-5.50); Red Cell Distribution Width 13.1 % (11.0-16.0); White Blood Count 6.9 X10*3/uL (4.8-10.8)
[2024-06-07 17:29] LABS: Prothrombin Time 12.4 SEC (11.1-13.3)
[2024-06-07 17:34] LABS: Valproate 90.4 mcg/mL (50.0-100.0)
[2024-06-07 17:43] LABS: Alanine Aminotransferase 64 U/L (0-31); Albumin Level 4.3 g/dL (3.5-5.0); Alkaline Phosphatase 53 U/L (39-117); Anion Gap 17 (12-20); Aspartate Amino Transferase 55 U/L (5-31); Bilirubin Direct 0.2 mg/dL (0.0-0.5); Bilirubin Total 0.5 mg/dL (0.0-1.0); Blood Urea Nitrogen 12 mg/dL (9-16); Calcium 9.4 mg/dL (8.4-10.2); Carbon Dioxide 27 mmol/L (22-29); Chloride 100 mmol/L (96-108); Creatinine Clr Calc Pharmacy 101.7; Estimated Glomerular Filt Rate > 60; Glucose Random 101 mg/dL (60-115); Lipase 32 U/L (8-78); Magnesium 1.6 mg/dL (1.6-2.6); Potassium 3.8 mmol/L (3.3-5.1); Sodium 140 mmol/L (135-145); Total Protein 8.1 g/dL (6.5-8.0)
[2024-06-07 17:57] LABS: HCG Quantitative < 2 mIU/mL; Troponin-I High Sensitivity < 2.7 ng/L (<3.5-17.0)
[2024-06-07 17:58] LABS: Ethanol < 10 mg/dL
[2024-06-07 18:01] LABS: Lactic Acid 3.6 mmol/L (0.5-2.0)
[2024-06-07 18:05] LABS: Influenza A PCR NEGATIVE (Negative); Influenza B PCR NEGATIVE (Negative); Resp Syncy Virus RNA Qual PCR NEGATIVE (Negative); SARS COV2 PCR INHOUSE NEGATIVE (Negative)
[2024-06-07 19:14] LABS: Reflex Lactate? Lactic Acid Added
--- NOTE | 2024-06-07 19:27 | PC.NURSE ---
Assumed care of pt. Pt lying on stretcher, eyes closed, respirations even and unlabored. No acute distress at this time.
[2024-06-07] MEDS: levETIRAcetam in NaCl (iso-os) 1,000 MG/100 ML PIGGYBACK 400 MG IV (19:34)
[2024-06-07 19:36] VITALS: BP 108/58; PULSE 86; RESP 18; O2SAT 100
--- NOTE | 2024-06-07 20:56 | P.HPHOSP_ITS ---
History of Present Illness Date of Service: 06/07/24 Chief Complaint: seizure This is a 33-year-old female with pertinent history of moderate persistent asthma, epileptic and nonepileptic seizures on Depakote, [id number] diabetes mellitus who presents to the emergency department for evaluation after a seizure activity. Patient while she was out with family for dinner, had 2 episodes of seizure lasting for about 3 minutes each. Patient reports compliance with Depakote. No new medications. Had some nausea, vomiting and abdominal pain during dinner. No fever, chills, chest discomfort, palpitations, shortness of breath, changes in urinary or bowel habits. In the emergency department, patient had an episode of generalized tonic-clonic seizure as per ER provider and was given IV Ativan. She was also loaded with IV Keppra. Valproic acid level therapeutic in the ER. Review of Systems 2 Constitutional: Constitutional: Reports no additional constitutional complaints Cardiovascular: Cardiovascular: Reports no additional cardiovascular complaints Respiratory: Respiratory: Reports no additional respiratory complaints Gastrointestinal: Gastrointestinal: Reports no additional gastrointestinal complaints Genitourinary: Genitourinary: Reports no additional female genitourinary complaints [facility] Medical History Chronic allergic rhinitis Otitis media Hypoxia Viral pneumonia Infection due to human metapneumovirus (hMPV) Diabetes mellitus Epilepsy Surgical History Hx of cholecystectomy Social History Household Members: Spouse and Children Housing: Apartment Do you presently have visiting nurse or other home services: No Alcohol intake: current Alcohol intake frequency: holidays/special occasions only Patient Tobacco Use Status: Never used Tobacco Smoked in Last 30 Days: No Use of substances other than those prescribed or required for medical reasons: No Advance Directives: Yes Advance Directives on File: Yes Advance Directives Date on File: 08/17/23 Do you have a plan to hurt others: No Plan Patient : No service: No Current occupational status: employed Meds Allergies Allergy/AdvReac Type Severity Reaction Status Date / Time Iodinated Contrast Media Allergy Intermediate Facial Verified 06/07/24 16:22 Swelling clindamycin [CLINDAMYCIN] Allergy Unknown ANAPHYLAXIS Verified 06/07/24 16:22 latex Allergy Itching Verified 06/07/24 16:22 Home Medications ?Medication ?Instructions ?Recorded ?Confirmed ?Last Taken ?Type divalproex 500 mg tablet,extended 1 tab PO BID 12/29/22 07/30/23 07/30/23 History release 24 hr albuterol sulfate 90 mcg/actuation 2 puff inhalation Q4-6H PRN 07/30/23 07/30/23 Unknown History aerosol inhaler (Ventolin HFA) Shortness Of Breath divalproex 250 mg tablet,delayed 250 mg PO DAILY 07/30/23 07/30/23 07/30/23 History release famotidine 20 mg tablet 20 mg PO BID 07/30/23 07/30/23 07/30/23 History loratadine 10 mg tablet 10 mg PO DAILY 07/30/23 07/30/23 Unknown History metformin 500 mg tablet 500 mg PO BIDWM 07/30/23 07/30/23 07/30/23 History Physical Exam 2 Vital Signs and Narrative: Vital Signs: Last Vital Signs Temp 98.1 F 06/07/24 16:23 Pulse 86 06/07/24 19:36 Resp 18 06/07/24 19:36 BP 108/58 L 06/07/24 19:36 Pulse Ox 100 06/07/24 19:36 O2 Del Method Room Air 06/07/24 19:36 BMI result Body Mass Index 32.4 Middle-aged female lying in bed in no distress Neck supple, no JVD Regular rate and rhythm, S1-S2 heard Regular breath sounds bilaterally, no wheezing or crackles appreciated Abdomen soft nontender, no guarding, no rigidity Patient is awake, alert and oriented to self, place, time and person ; no focal motor deficit Psych: Normal mood No pedal edema Results Labs 06/07/24 17:11 06/07/24 17:11 Labs: Laboratory Results - last 24 hr 06/07/24 06/07/24 16:50 17:11 MCV 97.7 MCH 33.1 H MCHC 33.9 RDW 13.1 Plt Count 277 MPV 10.4 Immature Gran % (Auto) 0.3 Neut % (Auto) 58.6 Lymph % (Auto) 33.5 [place] % (Auto) 7.1 Eos % (Auto) 0.1 Baso % (Auto) 0.4 Lymph # (Auto) 2.3 [place] # (Auto) 0.5 Eos # (Auto) 0.0 Baso # (Auto) 0.0 Abs Immat Gran (auto) 0.02 Absolute Neuts (auto) 4.1 Absolute Nucleated RBC 0.000 Nucleated RBC % (auto) 0.0 PT 12.4 INR 1.0 Anion Gap 17 Estim Creat Clear Calc 101.7 Estimated GFR > 60 Random Glucose 101 Lactic Acid 3.6 H* Calcium 9.4 D Magnesium 1.6 Total Bilirubin 0.5 Direct Bilirubin 0.2 AST 55 H ALT 64 H Alkaline Phosphatase 53 Troponin I High Sens < 2.7 Total Protein 8.1 H Albumin 4.3 Lipase 32 Beta HCG, Quant < 2 Urine Color Dark Yellow Urine Appearance Clear Urine pH 5.5 Ur Specific [place] 1.020 Urine Protein Negative Urine Glucose (UA) Negative Urine Ketones Trace Urine Blood Negative Urine Nitrite Negative Ur Leukocyte Esterase Negative Urine Test NEGATIVE Valproic Acid 90.4 Ethyl Alcohol < 10 Influenza Type A (PCR) NEGATIVE Influenza Type B (PCR) NEGATIVE RSV RNA Qual (PCR) NEGATIVE SARS-CoV-2 RNA (RT-PCR) NEGATIVE Imaging Radiologist's Impressions: Impressions Chest X-Ray 06/07/24 16:38 IMPRESSION: Unremarkable examination. Head CT 06/07/24 17:36 IMPRESSION: No acute abnormalities Abdomen/Pelvis CT 06/07/24 18:47 IMPRESSION: No explanation for abdominal pain. Hepatomegaly and hepatic steatosis. Fleischner guidelines were followed. Assessment and Plan (1) Breakthrough seizure: Status: Acute Plan This is a 33-year-old female with pertinent history of moderate persistent asthma, epileptic and nonepileptic seizures on Depakote, dki-wafzxek-yjoabmuxb diabetes mellitus who presents to the emergency department for evaluation after a seizure activity. #. Breakthrough seizure, generalized tonic-clonic in a patient with seizure disorder: Patient had a witnessed seizure in the ER as per ER provider. Will admit patient with seizure precautions. Valproic acid level therapeutic. Patient was loaded with Keppra in the ER. Obtaining EEG and consulting Neurology. #. Vlc-tvbtgjy-dqjktdpjt diabetes mellitus: Initiating Accu-Cheks with sliding scale insulin #. Acute lactic acidosis due to seizure #. Moderate persistent asthma: No exacerbation. Continue home inhalers Med rec pending DVT prophylaxis: Lovenox Full code Quality Stroke Does the patient have a stroke diagnosis?: No VTE Prior VTE?: No VTE Risk Level:: Medical - moderate - high VTE Device Contraindication: Treatment Not Indicated VTE Drug Contraindication: N/A - Med Ordered
[2024-06-07] MEDS: Enoxaparin Sodium 40 MG/0.4 ML SYRINGE SUBCUT (21:11)
[2024-06-07 21:35] VITALS: BP 132/83; PULSE 90; RESP 18; O2SAT 96
--- NOTE | 2024-06-07 21:36 | PC.NURSE ---
This Rn was allerted to bedside by ancillary staff with concern that pt was possibly experiencing another seizure. on assessment, pt is lethargic, slow to respond, eyes appear fluttering. MD Hall notified for further orders.
[2024-06-07 21:39] VITALS: BP 134/80; PULSE 88; RESP 18; O2SAT 96
[2024-06-07 22:07] LABS: ~Lactic Acid-LAB USE ONLY 2.2 mmol/L (0.5-2.0)
[2024-06-07 23:20] LABS: Amphetamine Screen Urine Not Detected (Not Detect); Barbiturates, Urine Not Detected (Not Detect); Benzodiazepines Screen Urine Not Detected (Not Detect); Buprenorphine Scr Not Detected (Not Detect); Cannabinoid Screen Urine Not Detected (Not Detect); Cocaine Screen Urine Not Detected (Not Detect); Fentanyl, urine Not Detected (Not Detect); Methadone Screen, Urine Not Detected (Not Detect); Opiate Screen Urine Not Detected (Not Detect); Oxycodone Screen Urine Not Detected (Not Detect); Phencyclidine Screen Urine Not Detected (Not Detect)
[2024-06-07 23:29] LABS: Reflex Lactate? 2 Y
[2024-06-08] VITALS: BP 124/58; PULSE 95; RESP 18; TEMP 36.6; O2SAT 95
[2024-06-08 00:05] LABS: ~Lactic Acid-LAB USE ONLY 2.7 mmol/L (0.5-2.0)
[2024-06-08] MEDS: 0.9 % Sodium Chloride Flush 3 ML SYRINGE IVFLUSH ×4 (00:16→21:12)
[2024-06-08 00:20] LABS: Glucose, Whole Blood 132 mg/dL (60-115)
[2024-06-08 06:55] LABS: MANUAL DIFF FLAG NO
[2024-06-08 07:05] LABS: Basophils Percent Auto 0.5 % (0-2); Eosinophils Percent Auto 0.2 % (0-4); Hematocrit 33.5 % (37.0-47.0); Hemoglobin 11.1 g/dl (12.0-16.0); Imm Gran Abs Auto 0.03 X10*3/uL (0.00-0.03); Imm Gran Pct Auto 0.5 % (0.0-0.4); Lymphocytes Absolute Auto 3.4 X10*3/uL (1.2-4.9); Lymphocytes Percent Auto 53.2 % (20-40); Mean Corpuscular HGB Conc 33.1 g/dl (31.0-35.0); Mean Corpuscular Hemoglobin 32.8 pg (27.0-33.0); Mean Corpuscular Volume 99.1 fL (80.0-98.0); Mean Platelet Volume 10.5 fL (9.4-12.3); Monocytes Absolute Auto 0.5 X10*3/uL (0.1-1.2); Monocytes Percent Auto 7.9 % (2-11); Neutrophils Absolute Auto 2.4 x10*3/uL (2.0-8.3); Neutrophils Percent Auto 37.7 % (45-73); Platelet Count 264 X10*3/uL (160-400); Red Blood Count 3.38 X10*6/uL (4.20-5.50); Red Cell Distribution Width 13.2 % (11.0-16.0); White Blood Count 6.4 X10*3/uL (4.8-10.8)
[2024-06-08 07:16] LABS: Anion Gap 14 (12-20); Blood Urea Nitrogen 7 mg/dL (9-16); Carbon Dioxide 27 mmol/L (22-29); Chloride 105 mmol/L (96-108); Creatinine Clr Calc Pharmacy 118.1; Estimated Glomerular Filt Rate > 60; Glucose Random 130 mg/dL (60-115); Potassium 3.6 mmol/L (3.3-5.1); Sodium 142 mmol/L (135-145)
[2024-06-08 07:48] VITALS: BP 100/54; PULSE 86; RESP 14; TEMP 36.4; O2SAT 96
--- NOTE | 2024-06-08 11:18 | PHA.MEDREC ---
Addendum entered by Sendy Hall RPh 06/08/24 12:01: MED REC COMPLETE BY SLOT OPERATIONS MANAGER, REVIEWED BY NICHOLE Original Note: Pharmacy Consult ? Medication Reconciliation Pharmacy has completed the medication reconciliation.
[2024-06-08 11:37] LABS: Glucose, Whole Blood 112 mg/dL (60-115)
--- NOTE | 2024-06-08 13:39 | HO.PM.IMPN ---
Subjective Subjective Date of Service: 06/08/24 Interval History: recent Covid-19 diagnosed 5d ago no dyspnea, minimal cough no headache and no further seizure Physical Exam Vital Signs: Vital Signs: Last Vital Signs Temp 97.6 F 06/08/24 07:48 Pulse 86 06/08/24 07:48 Resp 14 06/08/24 07:48 BP 100/54 L 06/08/24 07:48 Pulse Ox 96 06/08/24 07:48 O2 Del Method Room Air 06/08/24 07:48 BMI result Body Mass Index 32.4 Gen: in no acute distress HEENT: sclera anicteric, moist mucus membranes Neck: supple Lungs: clear to auscultation bilaterally Heart: regular rate and rhythm, no murmurs Abd: soft, non-tender, non-distended Ext: no edema Skin: warm/well-perfused Neuro: alert and oriented x3, no focal findings Psych: appropriate affect Objective Data Active Medications Acetaminophen (Acetaminophen 325 Mg Tablet) 650 mg PO Q6H PRN PRN Reason: Pain, Mild (Pain Scale 1-3), fever or headache Calcium Carbonate (Calcium Carbonate 750 Mg Tab.Chew) 750 mg PO Q4H PRN PRN Reason: Heartburn Enoxaparin Sodium (Enoxaparin Sodium 40 Mg/0.4 Ml Syringe) 40 mg SUBCUT Q24H COUNT INCLUDES THE [facility] Last Admin: 06/07/24 21:11 Dose: 40 mg Documented By: ANJELICA Glucose (Glucose Gel 15 Gm Gel..Gram.) 15 gm PO Q15M PRN; Protocol PRN Reason: per Hypoglycemia Standing Ord. Dextrose (D10) 250 mls @ 750 mls/hr IV Q15M PRN; Protocol PRN Reason: per Hypoglycemia Standing Ord. Insulin Human Lispro (Insulin Lispro 100 Unit/Ml 3 Ml Vial) 0 unit SUBCUT QIDACHS COUNT INCLUDES THE [facility]; Protocol Last Admin: 06/08/24 11:42 Dose: Not Given Documented By: RANDY Non-Admin Reason: No Insulin Coverage Magnesium Hydroxide (Milk Of Magnesia 30 Ml Oral.Susp) 30 ml PO DAILY PRN PRN Reason: Constipation Melatonin (Melatonin 3 Mg Tablet) 6 mg PO BEDTIME PRN PRN Reason: Insomnia Ondansetron HCl (Ondansetron Hcl 4 Mg/2 Ml Vial) 4 mg IVPUSH Q8H PRN PRN Reason: Nausea and Vomiting Sodium Chloride (0.9 % Sodium Chloride Flush 3 Ml Syringe) 3 ml IVFLUSH QSHIFT COUNT INCLUDES THE [facility] Last Admin: 06/08/24 10:06 Dose: 3 ml Documented By: RANDY Labs 06/08/24 06:07 06/08/24 06:07 Labs: Laboratory Results - last 24 hr 06/07/24 06/07/24 06/07/24 16:50 17:11 21:27 MCV 97.7 MCH 33.1 H MCHC 33.9 RDW 13.1 Plt Count 277 MPV 10.4 Immature Gran % (Auto) 0.3 Neut % (Auto) 58.6 Lymph % (Auto) 33.5 Pi[place] % (Auto) 7.1 Eos % (Auto) 0.1 Baso % (Auto) 0.4 Lymph # (Auto) 2.3 [place] # (Auto) 0.5 Eos # (Auto) 0.0 Baso # (Auto) 0.0 Abs Immat Gran (auto) 0.02 Absolute Neuts (auto) 4.1 Absolute Nucleated RBC 0.000 Nucleated RBC % (auto) 0.0 PT 12.4 INR 1.0 Anion Gap 17 Estim Creat Clear Calc 101.7 Estimated GFR > 60 POC Glucose Random Glucose 101 Lactic Acid 3.6 H* Lactic Acid F/U @ 2Hr 2.2 H* Lactic Acid F/U @ 4Hr Calcium 9.4 D Magnesium 1.6 Total Bilirubin 0.5 Direct Bilirubin 0.2 AST 55 H ALT 64 H Alkaline Phosphatase 53 Troponin I High Sens < 2.7 Total Protein 8.1 H Albumin 4.3 Lipase 32 Beta HCG, Quant < 2 Urine Color Dark Yellow Urine Appearance Clear Urine pH 5.5 Ur Specific [place] 1.020 Urine Protein Negative Urine Glucose (UA) Negative Urine Ketones Trace Urine Blood Negative Urine Nitrite Negative Ur Leukocyte Esterase Negative Urine Test NEGATIVE Urine Opiates Screen Not Detected Ur Buprenorphine Scrn Not Detected Ur Oxycodone Screen Not Detected Urine Methadone Screen Not Detected Urine Fentanyl Screen Not Detected Ur Barbiturates Screen Not Detected Valproic Acid 90.4 Ur Phencyclidine Scrn Not Detected Ur Amphetamines Screen Not Detected U Benzodiazepines Scrn Not Detected Urine Cocaine Screen Not Detected U Marijuana (THC) Screen Not Detected Ethyl Alcohol < 10 Influenza Type A (PCR) NEGATIVE Influenza Type B (PCR) NEGATIVE RSV RNA Qual (PCR) NEGATIVE SARS-CoV-2 RNA (RT-PCR) NEGATIVE 06/07/24 06/08/24 06/08/24 23:45 00:16 06:07 MCV 99.1 H MCH 32.8 MCHC 33.1 RDW 13.2 Plt Count 264 MPV 10.5 Immature Gran % (Auto) 0.5 H Neut % (Auto) 37.7 L Lymph % (Auto) 53.2 H [place] % (Auto) 7.9 Eos % (Auto) 0.2 Baso % (Auto) 0.5 Lymph # (Auto) 3.4 [place] # (Auto) 0.5 Eos # (Auto) 0.0 Baso # (Auto) 0.0 Abs Immat Gran (auto) 0.03 Absolute Neuts (auto) 2.4 Absolute Nucleated RBC 0.000 Nucleated RBC % (auto) 0.0 PT INR Anion Gap 14 Estim Creat Clear Calc 118.1 Estimated GFR > 60 POC Glucose 132 H Random Glucose 130 H Lactic Acid Lactic Acid F/U @ 2Hr Lactic Acid F/U @ 4Hr 2.7 H* Calcium 9.0 Magnesium Total Bilirubin Direct Bilirubin AST ALT Alkaline Phosphatase Troponin I High Sens Total Protein Albumin Lipase Beta HCG, Quant Urine Color Urine Appearance Urine pH Ur Specific [place] Urine Protein Urine Glucose (UA) Urine Ketones Urine Blood Urine Nitrite Ur Leukocyte Esterase Urine Test Urine Opiates Screen Ur Buprenorphine Scrn Ur Oxycodone Screen Urine Methadone Screen Urine Fentanyl Screen Ur Barbiturates Screen Valproic Acid Ur Phencyclidine Scrn Ur Amphetamines Screen U Benzodiazepines Scrn Urine Cocaine Screen U Marijuana (THC) Screen Ethyl Alcohol Influenza Type A (PCR) Influenza Type B (PCR) RSV RNA Qual (PCR) SARS-CoV-2 RNA (RT-PCR) 06/08/24 11:22 MCV MCH MCHC RDW Plt Count MPV Immature Gran % (Auto) Neut % (Auto) Lymph % (Auto) [place] % (Auto) Eos % (Auto) Baso % (Auto) Lymph # (Auto) [place] # (Auto) Eos # (Auto) Baso # (Auto) Abs Immat Gran (auto) Absolute Neuts (auto) Absolute Nucleated RBC Nucleated RBC % (auto) PT INR Anion Gap Estim Creat Clear Calc Estimated GFR POC Glucose 112 Random Glucose Lactic Acid Lactic Acid F/U @ 2Hr Lactic Acid F/U @ 4Hr Calcium Magnesium Total Bilirubin Direct Bilirubin AST ALT Alkaline Phosphatase Troponin I High Sens Total Protein Albumin Lipase Beta HCG, Quant Urine Color Urine Appearance Urine pH Ur Specific [place] Urine Protein Urine Glucose (UA) Urine Ketones Urine Blood Urine Nitrite Ur Leukocyte Esterase Urine Test Urine Opiates Screen Ur Buprenorphine Scrn Ur Oxycodone Screen Urine Methadone Screen Urine Fentanyl Screen Ur Barbiturates Screen Valproic Acid Ur Phencyclidine Scrn Ur Amphetamines Screen U Benzodiazepines Scrn Urine Cocaine Screen U Marijuana (THC) Screen Ethyl Alcohol Influenza Type A (PCR) Influenza Type B (PCR) RSV RNA Qual (PCR) SARS-CoV-2 RNA (RT-PCR) Assessment and Plan (1) Seizure: Status: Acute Plan d2 33yo F with epileptic + nonepileptic seizures on Depakote, DM2 presenting after breakthrough generalized seizure breakthrough seizure, generalized tonic-clonic - continue Depakote [level therapeutic]; pt did get Keppra in ED; EEG + Neuro consult pending acute lactic acidosis - due to sz vs MTF, not septic DM2 - kim-dose lispro VTE ppx - enoxaparin dispo - eventual home In my clinical judgment, the patient requires continued inpatient hospitalization for the following reasons: neurologic consultation Total time managing care of this patient today: 35 minutes. Quality Stroke Does the patient have a stroke diagnosis?: No VTE Prior VTE?: No VTE Risk Level:: Medical - moderate - high VTE Device Contraindication: Treatment Not Indicated VTE Drug Contraindication: N/A - Med Ordered
[2024-06-08] MEDS: Divalproex Sodium ER 500 MG TAB.ER.24H PO ×2 (13:58→21:02)
[2024-06-08] MEDS: Divalproex Sodium ER 250 MG TAB.ER.24H PO ×2 (13:58→21:02)
[2024-06-08 15:37] VITALS: BP 137/63; PULSE 92; RESP 18; TEMP 36.5; O2SAT 94
[2024-06-08] MEDS: LORazepam 2 MG/ML VIAL IVPUSH (15:59)
--- NOTE | 2024-06-08 16:06 | P.EN_ITS ---
Event Note Date of Service: 06/08/24 Event Note: ACCOUNTING RECONCILIATION CLERK called for seizure activity Pt altered, eyes rolled back in head, R arm shaking progressed to bilateral arm shaking. Given 2 mg Ativan IV with resolution, will also give 1g Keppra IV and then start 500mg Keppra PO bid Transfer to tele Neuro consult + EEG pending Time Spent With Patient Time: Total time managing care of this patient today ____ minutes.
[2024-06-08] MEDS: levETIRAcetam in NaCl (iso-os) 1,000 MG/100 ML PIGGYBACK 400 MG IV (16:08)
[2024-06-08 16:09] LABS: Glucose, Whole Blood 133 mg/dL (60-115)
--- NOTE | 2024-06-08 16:20 | PC.NURSE ---
Brother and mother at bedside. Brother came to desk and stated, I think she's having another seizure. Pt found unresponsive in bed with head tilted back and eyes rolled back. ORCHESTRA MUSICIAN called @ 1554. HR 101. BP 118/55. sat 92% on room air. Dr. Jolley ordered STAT IV ativan and IV keppra. Both meds administered. Order for transfer to med-tele. Seizure lasted @ 5 minutes. Telepack placed. Dye Stand Loader and med-teletypesetter operator transfered pt. Report called to Lennie. Family aware of transfer.
[2024-06-08 16:22] VITALS: BP 126/65; PULSE 91; RESP 20; TEMP 36.7; O2SAT 94
[2024-06-08] MEDS: metFORMIN HCl 500 MG TABLET PO (16:39)
[2024-06-08 19:29] VITALS: BP 129/60; PULSE 85; RESP 20; TEMP 36.6; O2SAT 94
[2024-06-08 19:48] LABS: Glucose, Whole Blood 109 mg/dL (60-115)
[2024-06-08] MEDS: Enoxaparin Sodium 40 MG/0.4 ML SYRINGE SUBCUT (21:02)
[2024-06-08] MEDS: levETIRAcetam 500 MG TABLET PO (21:02)
--- NOTE | 2024-06-08 21:20 | PM.EVENT ---
Event Note Date of Service: 06/09/24 Event Note: pt had seizure around 4 and was given Ativan and seems drowsy now and is reporting double vision but no visual loss. On exam: she drowy, and says the light bothers her eyes, pupils are equal and react to light, eye movements were intact. When she covered right eye she reported no double vision but when she covered the left eye she reported no double vision. She has no pain in the eye, neuro exam otherwise intact.. I reviewed CT head from yesterday which was unremarkable. I review record record from [facility]. she had continuous video EEG with sleep deprivation between 03/25/24 and 03/26/24 with the following impression and conclusion IMPRESSION:??This day of continuous terminal gauger supervisor video EEG monitoring?is within normal limits during wakefulness and sleep.??The event of head bobbing and shaking and intermittent shaking of the arms and legs was without electroencephalographic correlate. ?The results of the monitoring would indicate the current event is nonepileptic in etiology.??No focal, lateralized or epileptiform activity is present. CT head negative, reassessed and stated double vision was getting better not as strong . Further imaging ie MRI PRN ? Time Spent With Patient Time: Total time managing care of this patient today ____ minutes.
[2024-06-08] MEDS: ondansetron HCL 4 MG/2 ML VIAL IVPUSH (21:23)
[2024-06-08] MEDS: Acetaminophen 325 MG TABLET 650 MG PO (21:43)
[2024-06-08 23:49] VITALS: BP 111/53; PULSE 92; RESP 16; TEMP 37.4; O2SAT 93
--- NOTE | 2024-06-09 | EEG_ITS ---
This is a 16 channel EEG with an EKG lead. The patient is reported awake but had a seizure-like episode during the tracing. Background EEG rhythm was 8-10 hertz 5-20 microvolt posteriorly lower amplitude fast anteriorly. Some lead and muscle artifacts are noted. No sharp wave spikes or paroxysmal tendency of seizure is noted. Cardiac lead did not reveal any significant abnormality. Photic stimulation is okay. IMPRESSION: This EEG did not reveal any epileptic tendency. MD DONNA Arenas/MARTELL / [id number]
[2024-06-09 03:09] VITALS: BP 110/59; PULSE 82; RESP 16; TEMP 36.6; O2SAT 93
--- NOTE | 2024-06-09 07:27 | PC.NURSE ---
Patient was very drowsy during assessment she is alert and oriented. Paitent brother at the bedside , patient complains of new onset of double visions after ativan was administered to her when she had her last seizure episode. MD Michelle made aware, patient took her meds whole with no complications while family was present patient grew quiet , more drowsy and weak and stated that she felt like an episode was coming on. Patient was laid back in the bed, her right arm was shaking for about 2 mins and then patient became more alert again . She complained of TREVINO pain and tylenol was given. Ovenright she went down for a cat scan and returned with no neuro deficits. Vitals obtained and documented please see [facility] for more details.
[2024-06-09 07:56] VITALS: BP 122/61; PULSE 71; RESP 18; TEMP 36.4; O2SAT 92
[2024-06-09 07:59] LABS: Glucose, Whole Blood 125 mg/dL (60-115)
[2024-06-09] MEDS: metFORMIN HCl 500 MG TABLET PO (08:42)
[2024-06-09] MEDS: Divalproex Sodium ER 500 MG TAB.ER.24H PO (08:42)
[2024-06-09] MEDS: levETIRAcetam 500 MG TABLET PO (08:42)
[2024-06-09] MEDS: Divalproex Sodium ER 250 MG TAB.ER.24H PO (08:42)
[2024-06-09] MEDS: 0.9 % Sodium Chloride Flush 3 ML SYRINGE IVFLUSH (08:44)
--- NOTE | 2024-06-09 10:17 | MHC.CM.PN ---
KARLO 06/09/24, EMR REVIEWED, CM MET W/PT VIA GREEN ENERGY MARKETING ANALYST, PT REPORTS SHE LIVES W/HER , 3KIDS AND PT'S MOTHER, PT REPORTS THE ONLY DME IS DIABETIC SUPPLIES, PT DENIES ANY HOME SERVICES ALTHOUGH HER MOTHER DOES HELP AT HOME. GOAL FOR DC IS HOME. PT VERIFIES PCP IS ILA FRAZIER, PT EDUCATED ON AND COMPLETES A HCP NAMING HER SHERYL VU ALONZO [phone] HER [facility] AND HER MOTHER CARLOS MABRY [phone] HER ALTERNATE, COPY UPLOADED TO [facility] AND PLACED IN CHART.
[2024-06-09 11:25] VITALS: BP 131/65; PULSE 83; RESP 17; TEMP 36.3; O2SAT 92
[2024-06-09 12:01] LABS: Glucose, Whole Blood 107 mg/dL (60-115)
--- NOTE | 2024-06-09 12:07 | PM.NEUROCN ---
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 She used to see me but more recently has been seeing [facility] neurology. Apparently she also now has a diagnosis of nonepileptic spells. She was brought to hospital after couple of seizure-like episodes. He has been taking her dose of Depakote Review of Systems Review of Systems: No recent trauma or cold or flu-like illness PMFSH Past Medical History Medical History Chronic allergic rhinitis Otitis media Hypoxia Viral pneumonia Infection due to human metapneumovirus (hMPV) Diabetes mellitus Epilepsy Surgical History Surgical History Hx of cholecystectomy Social History Social History Household Members: Spouse and Children Housing: Apartment Do you presently have visiting nurse or other home services: No Alcohol intake: current Alcohol intake frequency: holidays/special occasions only Patient Tobacco Use Status: Never used Tobacco Smoked in Last 30 Days: No Use of substances other than those prescribed or required for medical reasons: No Currently Displaying Signs/Symptoms of Drug Intoxication Withdrawal: No Advance Directives: Yes Advance Directives on File: Yes Advance Directives Date on File: 08/17/23 Do you have a plan to hurt others: No Plan Patient : No service: No Current occupational status: employed Meds Allergies Allergy/AdvReac Type Severity Reaction Status Date / Time Iodinated Contrast Media Allergy Intermediate Facial Verified 06/07/24 16:22 Swelling clindamycin [CLINDAMYCIN] Allergy Unknown ANAPHYLAXIS Verified 06/07/24 16:22 latex Allergy Itching Verified 06/07/24 16:22 Active Medications: Current Medications Acetaminophen (Acetaminophen 325 Mg Tablet) 650 mg PO Q6H PRN PRN Reason: Pain, Mild (Pain Scale 1-3), fever or headache Last Admin: 06/08/24 21:43 Dose: 650 mg Calcium Carbonate (Calcium Carbonate 750 Mg Tab.Chew) 750 mg PO Q4H PRN PRN Reason: Heartburn Divalproex Sodium (Divalproex Sodium Er 500 Mg Tab.Er.24h) 500 mg PO BID [facility] Last Admin: 06/09/24 08:42 Dose: 500 mg Divalproex Sodium (Divalproex Sodium Er 250 Mg Tab.Er.24h) 250 mg PO BID [facility] Last Admin: 06/09/24 08:42 Dose: 250 mg Enoxaparin Sodium (Enoxaparin Sodium 40 Mg/0.4 Ml Syringe) 40 mg SUBCUT Q24H [facility] Last Admin: 06/08/24 21:02 Dose: 40 mg Glucose (Glucose Gel 15 Gm Gel..Gram.) 15 gm PO Q15M PRN; Protocol PRN Reason: per Hypoglycemia Standing Ord. Dextrose (D10) 250 mls @ 750 mls/hr IV Q15M PRN; Protocol PRN Reason: per Hypoglycemia Standing Ord. Insulin Human Lispro (Insulin Lispro 100 Unit/Ml 3 Ml Vial) 0 unit SUBCUT QIDACHS [facility]; Protocol Last Admin: 06/09/24 08:44 Dose: Not Given Levetiracetam (Levetiracetam 500 Mg Tablet) 500 mg PO BID [facility] Last Admin: 06/09/24 08:42 Dose: 500 mg Magnesium Hydroxide (Milk Of Magnesia 30 Ml Oral.Susp) 30 ml PO DAILY PRN PRN Reason: Constipation Melatonin (Melatonin 3 Mg Tablet) 6 mg PO BEDTIME PRN PRN Reason: Insomnia Metformin HCl (Metformin Hcl 500 Mg Tablet) 500 mg PO BIDWM [facility] Last Admin: 06/09/24 08:42 Dose: 500 mg Ondansetron HCl (Ondansetron Hcl 4 Mg/2 Ml Vial) 4 mg IVPUSH Q8H PRN PRN Reason: Nausea and Vomiting Last Admin: 06/08/24 21:23 Dose: 4 mg Sodium Chloride (0.9 % Sodium Chloride Flush 3 Ml Syringe) [facility] Last Admin: 06/09/24 08:44 Dose: 3 ml Home Medications ?Medication ?Instructions ?Recorded ?Confirmed ?Last Taken ?Type metformin 500 mg tablet 500 mg PO BIDWM 07/30/23 06/08/24 06/07/24 09:00 History divalproex 250 mg tablet,extended 250 mg PO BID 06/08/24 06/08/24 06/07/24 09:00 History release 24 hr divalproex 500 mg tablet,extended 500 mg PO BID 06/08/24 06/08/24 06/07/24 09:00 History release 24 hr Physical Exam Vital Signs: Vital Signs: Last Vital Signs Temp 97.3 F 06/09/24 11:25 Pulse 83 06/09/24 11:25 Resp 17 06/09/24 11:25 BP 131/65 06/09/24 11:25 Pulse Ox 92 06/09/24 11:25 O2 Del Method Room Air 06/09/24 11:25 BMI result Body Mass Index 32.4 Neuro: Other: When I arrived she was sleeping but was able to wake up. She answered simple questions appropriately. She recognize me. There was no obvious focal weakness. Results Labs 06/08/24 06:07 06/08/24 06:07 Labs: Head CT without contrast for her age group revealed mild diffuse atrophy. Assessment and Plan (1) Seizure: Status: Acute 33 years old woman with chronic intractable epilepsy now seeing a neurologist in [facility]. She was taking Depakote and level was therapeutic. I recommend that she should see her outpatient neurologist and seek further guidance about management of epilepsy. In the meantime she should not drive. Procedures Date of Service Date of Service: 06/09/24
--- NOTE | 2024-06-09 12:26 | P.DS_ITS ---
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 Patient while she was out with family for dinner, had 2 episodes of seizure lasting for about 3 minutes each. Patient reports compliance with Depakote. No new medications. Had some nausea, vomiting and abdominal pain during dinner. No fever, chills, chest discomfort, palpitations, shortness of breath, changes in urinary or bowel habits. In the emergency department, patient had an episode of generalized tonic-clonic seizure as per ER provider and was given IV Ativan. She was also loaded with IV Keppra. Valproic acid level therapeutic in the ER. 33yo F with epileptic + nonepileptic seizures on Depakote, DM2 presenting after breakthrough generalized seizure and admitted to the hospitalist service. Depakote level was therapeutic. She had another episode of seizure-like activity and got IV Ativan. Review of her records from [facility] showed a recent continuous video EEG with sleep deprivation between 03/25/24 and 03/26/24 with the following impression and conclusion: This day of continuous [facility] video EEG monitoring?is within normal limits during wakefulness and sleep.??The event of head bobbing and shaking and intermittent shaking of the arms and legs was without electroencephalographic correlate. ?The results of the monitoring would indicate the current event is nonepileptic in etiology.??No focal, lateralized or epileptiform activity is present. An EEG was done on 06/09/24, during which she actually had a seizure-like episode; the EEG was completely normal, again suggesting non-epileptic seizures.. Neurology was consulted and recommended continuing Depakote and following up with her [facility] neurologist, Dr Edith. She was counseled to avoid driving. Time Attestation Discharge Coordination Time (in mins): 35 Quality: Safe Use of Opioids Does Pt have an Active Cancer Diagnosis on the Problem List?: No Quality: Stroke Does the patient have a stroke diagnosis?: No Physical Exam Vital Signs: Vital Signs: Last Vital Signs Temp 97.3 F 06/09/24 11:25 Pulse 83 06/09/24 11:25 Resp 17 06/09/24 11:25 BP 131/65 06/09/24 11:25 Pulse Ox 92 06/09/24 11:25 O2 Del Method Room Air 06/09/24 11:25 BMI result Body Mass Index 32.4 Gen: in no acute distress HEENT: sclera anicteric, moist mucus membranes Neck: supple Lungs: clear to auscultation bilaterally Heart: regular rate and rhythm, no murmurs Abd: soft, non-tender, non-distended Ext: no edema Skin: warm/well-perfused Neuro: alert and oriented x3, no focal findings Psych: appropriate affect DS: Data Data Completed and Pending Completed studies during hospitalization [Text1]: Laboratory Results WBC 6.4 X10*3/uL (4.8-10.8) 06/08/24 06:07 RBC 3.38 X10*6/uL (4.20-5.50) L 06/08/24 06:07 Hgb 11.1 g/dl (12.0-16.0) L 06/08/24 06:07 Hct 33.5 % (37.0-47.0) L 06/08/24 06:07 MCV 99.1 fL (80.0-98.0) H 06/08/24 06:07 MCH 32.8 pg (27.0-33.0) 06/08/24 06:07 MCHC 33.1 g/dl (31.0-35.0) 06/08/24 06:07 RDW 13.2 % (11.0-16.0) 06/08/24 06:07 Plt Count 264 X10*3/uL (160-400) 06/08/24 06:07 MPV 10.5 fL (9.4-12.3) 06/08/24 06:07 Immature Gran % (Auto) 0.5 % (0.0-0.4) H 06/08/24 06:07 Neut % (Auto) 37.7 % (45-73) L 06/08/24 06:07 Lymph % (Auto) 53.2 % (20-40) H 06/08/24 06:07 Evans % (Auto) 7.9 % (2-11) 06/08/24 06:07 Eos % (Auto) 0.2 % (0-4) 06/08/24 06:07 Baso % (Auto) 0.5 % (0-2) 06/08/24 06:07 Lymph # (Auto) 3.4 X10*3/uL (1.2-4.9) 06/08/24 06:07 Evans # (Auto) 0.5 X10*3/uL (0.1-1.2) 06/08/24 06:07 Eos # (Auto) 0.0 X10*3/uL (0.0-0.4) 06/08/24 06:07 Baso # (Auto) 0.0 X10*3/uL (0.0-0.2) 06/08/24 06:07 Abs Immat Gran (auto) 0.03 X10*3/uL (0.00-0.03) 06/08/24 06:07 Absolute Neuts (auto) 2.4 x10*3/uL (2.0-8.3) 06/08/24 06:07 Absolute Nucleated RBC 0.000 X10*3/uL (0.0-0.012) 06/08/24 06:07 Nucleated RBC % (auto) 0.0 /100WBC (0.0-0.2) 06/08/24 06:07 PT 12.4 SEC (11.1-13.3) 06/07/24 17:11 INR 1.0 (0.9-1.1) 06/07/24 17:11 Sodium 142 mmol/L (135-145) 06/08/24 06:07 Potassium 3.6 mmol/L (3.3-5.1) 06/08/24 06:07 Chloride 105 mmol/L (96-108) 06/08/24 06:07 Carbon Dioxide 27 mmol/L (22-29) 06/08/24 06:07 Anion Gap 14 (12-20) 06/08/24 06:07 BUN 7 mg/dL (9-16) L 06/08/24 06:07 Creatinine 0.62 mg/dL (0.5-1.4) 06/08/24 06:07 Estim Creat Clear Calc 118.1 06/08/24 06:07 Estimated GFR > 60 06/08/24 06:07 POC Glucose 107 mg/dL (60-115) 06/09/24 11:50 Random Glucose 130 mg/dL (60-115) H 06/08/24 06:07 Lactic Acid 3.6 mmol/L (0.5-2.0) H* 06/07/24 17:11 Lactic Acid F/U @ 2Hr 2.2 mmol/L (0.5-2.0) H* 06/07/24 21:27 Lactic Acid F/U @ 4Hr 2.7 mmol/L (0.5-2.0) H* 06/07/24 23:45 Calcium 9.0 mg/dL (8.4-10.2) 06/08/24 06:07 Magnesium 1.6 mg/dL (1.6-2.6) 06/07/24 17:11 Total Bilirubin 0.5 mg/dL (0.0-1.0) 06/07/24 17:11 Direct Bilirubin 0.2 mg/dL (0.0-0.5) 06/07/24 17:11 AST 55 U/L (5-31) H 06/07/24 17:11 ALT 64 U/L (0-31) H 06/07/24 17:11 Alkaline Phosphatase 53 U/L (39-117) 06/07/24 17:11 Troponin I High Sens < 2.7 ng/L (<3.5-17.0) 06/07/24 17:11 Total Protein 8.1 g/dL (6.5-8.0) H 06/07/24 17:11 Albumin 4.3 g/dL (3.5-5.0) 06/07/24 17:11 Lipase 32 U/L (8-78) 06/07/24 17:11 Beta HCG, Quant < 2 mIU/mL 06/07/24 17:11 Urine Color Dark Yellow 06/07/24 16:50 Urine Appearance Clear 06/07/24 16:50 Urine pH 5.5 (5.0-9.0) 06/07/24 16:50 Ur Specific Brooks 1.020 (1.005-1.025) 06/07/24 16:50 Urine Protein Negative mg/dL (Neg-Trace) 06/07/24 16:50 Urine Glucose (UA) Negative mg/dL (Negative) 06/07/24 16:50 Urine Ketones Trace mg/dL (Negative) 06/07/24 16:50 Urine Blood Negative (Negative) 06/07/24 16:50 Urine Nitrite Negative (Negative) 06/07/24 16:50 Ur Leukocyte Esterase Negative (Negative) 06/07/24 16:50 Urine Test NEGATIVE (NEGATIVE) 06/07/24 16:50 Urine Opiates Screen Not Detected (Not Detect) 06/07/24 16:50 Ur Buprenorphine Scrn Not Detected ng/mL (Not Detect) 06/07/24 16:50 Ur Oxycodone Screen Not Detected ng/mL (Not Detect) 06/07/24 16:50 Urine Methadone Screen Not Detected ng/mL (Not Detect) 06/07/24 16:50 Urine Fentanyl Screen Not Detected (Not Detect) 06/07/24 16:50 Ur Barbiturates Screen Not Detected (Not Detect) 06/07/24 16:50 Valproic Acid 90.4 mcg/mL (50.0-100.0) 06/07/24 17:11 Ur Phencyclidine Scrn Not Detected (Not Detect) 06/07/24 16:50 Ur Amphetamines Screen Not Detected (Not Detect) 06/07/24 16:50 U Benzodiazepines Scrn Not Detected (Not Detect) 06/07/24 16:50 Urine Cocaine Screen Not Detected (Not Detect) 06/07/24 16:50 U Marijuana (THC) Screen Not Detected (Not Detect) 06/07/24 16:50 Ethyl Alcohol < 10 mg/dL 06/07/24 17:11 Influenza Type A (PCR) NEGATIVE (Negative) 06/07/24 17:11 Influenza Type B (PCR) NEGATIVE (Negative) 06/07/24 17:11 RSV RNA Qual (PCR) NEGATIVE (Negative) 06/07/24 17:11 SARS-CoV-2 RNA (RT-PCR) NEGATIVE (Negative) 06/07/24 17:11 Impressions Chest X-Ray 06/07/24 16:38 IMPRESSION: Unremarkable examination. Abdomen/Pelvis CT 06/07/24 18:47 IMPRESSION: No explanation for abdominal pain. Hepatomegaly and hepatic steatosis. Fleischner guidelines were followed. Head CT 06/09/24 02:55 IMPRESSION: No acute intracranial pathology. Discharge Plan Discharge Anticipated Discharge Date/Time: 06/09/24 16:23 Patient Disposition: Home, Self-Care Discharge Diagnosis: nonepileptic seizure Referrals: [facility] [Provider Group] - 1 Week Physician,Unknown J [Physician] - 1 Week Discharge Medications: Continued metformin 500 mg tablet 500 mg PO BIDWM divalproex 500 mg tablet extended release 24 hr 500 mg PO BID Rx Instructions: with 250 mg; total 750 mg BID divalproex 250 mg tablet extended release 24 hr 250 mg PO BID Rx Instructions: with 500 mg; total 750 mg BID Diet: Diabetic diet Activity on Discharge: As tolerated Stand Alone Forms: Patient Portal Discharge page Print Language: Faroese Care Plan Goals: seizure control Health Concerns: seizure likely non-epileptic Plan of Treatment: continue Depakote see your neurologist Dr Sharma from [facility] in 1 week no driving Please follow up with your primary care doctor within 1 week. Return to the hospital if you experience recurrent or worsening symptoms. Assessment: See Discharge Summary.
[2024-06-09 14:30] VITALS: BP 127/59; PULSE 94; RESP 18; TEMP 36.6; O2SAT 100
--- NOTE | 2024-06-09 14:32 | PC.NURSE ---
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 Tech stated that she called DR Miranda and reported the event. pt is back from the test to her room [id number] alert and oriented , DR Jolley was notified
[2024-06-09 15:33] VITALS: BP 128/70; PULSE 94; RESP 18; TEMP 36.7; O2SAT 94
--- NOTE | 2024-06-09 15:36 | MHC.CM.PN ---
PT MEDICALLY CLEARED FOR DC HOME SELF CARE, PT TO ARRANGE TRANSPORT.
--- NOTE | 2024-06-09 16:07 | PC.NURSE ---
Pt is asking for the note for work , Dr Jolley stated that she can go to work tomorrow 06/10
== END 2024-06-09 16:15 | disposition home or self-care (01) | DRG 53 ==
LOC: HO.ED 20:52 → HO.EDOVER 21:16 → HO.S3 21:59 → HO.IMC 06-08 16:13
PROVIDERS: Physician Assistant; Admitting Provider Student in an Organized Health Care Education/Training Program; Emergency Provider Emergency Medicine Emergency Medical Services; PCP Internal Medicine; Visit Provider Family Medicine
DX: R56.9 Unspecified convulsions (principal); G40.919 Epilepsy, unspecified, intractable, without status epilepticus; E87.21 Acute metabolic acidosis; J45.40 Moderate persistent asthma, uncomplicated; Z20.822 Contact with and (suspected) exposure to COVID-19; Z91.040 Latex allergy status; Z91.041 Radiographic dye allergy status; Z79.84 Long term (current) use of oral hypoglycemic drugs; Z79.899 Other long term (current) drug therapy
CPT/HCPCS: 0241U; 36415; 70450; 71045; 74176; 80048; 80076; 80164; 80307; 81003; 81025; 82947; 83605; 83690; 83735; 84484; 84702; 85025; 85610; 93005; 95816; 99285; J1650; J1953; J2060; J2405

== ENCOUNTER → 2024-06-07 16:48 | Outpatient (BNV) | payer MEDICAID, SELFPAY | PROVIDERS: Admitting Provider Student in an Organized Health Care Education/Training Program; Emergency Provider Emergency Medicine Emergency Medical Services; Visit Provider Internal Medicine Cardiovascular Disease | DX: R94.31 Abnormal electrocardiogram [ECG] [EKG] (principal) | CPT/HCPCS: 93010 ==

== ENCOUNTER → 2024-06-07 20:55 | Outpatient (BNV) | payer MEDICAID, SELFPAY | PROVIDERS: Admitting Provider Student in an Organized Health Care Education/Training Program; Emergency Provider Emergency Medicine Emergency Medical Services; Visit Provider Student in an Organized Health Care Education/Training Program | DX: R56.9 Unspecified convulsions (principal) | CPT/HCPCS: 99222; 99232; 99239; 99499 ==

== ENCOUNTER → 2024-06-09 11:49 | Outpatient (BNV) | payer MEDICAID, SELFPAY | PROVIDERS: Admitting Provider Student in an Organized Health Care Education/Training Program; Emergency Provider Emergency Medicine Emergency Medical Services; Visit Provider Psychiatry & Neurology Neurology | DX: G40.319 Generalized idiopathic epilepsy and epileptic syndromes, intractable, without status epilepticus (principal) | CPT/HCPCS: 99222 ==

== ENCOUNTER 2024-06-13 16:56 | Emergency (ER) | payer MEDICAID, SELFPAY ==
--- NOTE | ~2024-06-13 | XR_ITS ---
EXAMINATION: XR CHEST CLINICAL INFORMATION: Upper respiratory tract infection symptoms. COMPARISON: Chest radiograph dated 06/07/2024. TECHNIQUE: Frontal view of the chest was obtained. FINDINGS: The heart is normal in size. The lungs are clear. Pleural spaces are clear. No pneumothorax. No acute osseous abnormality. XR/XR chest 1V IMPRESSION: No acute cardiopulmonary disease.
[2024-06-13 17:36] VITALS: BP 124/61; PULSE 96; RESP 16; TEMP 37.2; O2SAT 98; BMI 32.0
[2024-06-13 18:05] LABS: MANUAL DIFF FLAG NO
[2024-06-13 18:06] LABS: Basophils Percent Auto 0.9 % (0-2); Eosinophils Percent Auto 0.6 % (0-4); Hematocrit 34.3 % (37.0-47.0); Hemoglobin 11.8 g/dl (12.0-16.0); Imm Gran Abs Auto 0.02 X10*3/uL (0.00-0.03); Imm Gran Pct Auto 0.6 % (0.0-0.4); Lymphocytes Percent Auto 30.4 % (20-40); Mean Corpuscular HGB Conc 34.4 g/dl (31.0-35.0); Mean Corpuscular Hemoglobin 33.3 pg (27.0-33.0); Mean Corpuscular Volume 96.9 fL (80.0-98.0); Mean Platelet Volume 9.6 fL (9.4-12.3); Monocytes Absolute Auto 0.5 X10*3/uL (0.1-1.2); Monocytes Percent Auto 15.6 % (2-11); Neutrophils Absolute Auto 1.7 x10*3/uL (2.0-8.3); Neutrophils Percent Auto 51.9 % (45-73); Platelet Count 247 X10*3/uL (160-400); Red Blood Count 3.54 X10*6/uL (4.20-5.50); Red Cell Distribution Width 12.9 % (11.0-16.0); White Blood Count 3.3 X10*3/uL (4.8-10.8)
[2024-06-13 18:19] LABS: Anion Gap 13 (12-20); Blood Urea Nitrogen 8 mg/dL (9-16); Calcium 9.7 mg/dL (8.4-10.2); Carbon Dioxide 28 mmol/L (22-29); Chloride 103 mmol/L (96-108); Creatinine Clr Calc Pharmacy 121.2; Estimated Glomerular Filt Rate > 60; Glucose Random 95 mg/dL (60-115); Potassium 4.1 mmol/L (3.3-5.1); Sodium 140 mmol/L (135-145)
[2024-06-13 18:36] LABS: COVID-19 Test Negative (Negative); IDNOW Serial# 08D9AD1C; IDNOW Serial# 152EDE1D; Influenza A Negative (Negative); Influenza B2 Negative (Negative)
--- NOTE | 2024-06-13 18:47 | ED_ITS ---
HPI - General Adult General Chief complaint: Upper Respiratory Symptoms Stated complaint: fever, body aches Time Seen by Provider: 06/13/24 18:44 Source: patient Mode of arrival: ambulatory Limitations: no limitations History of Present Illness HPI narrative: This is a 33-year-old woman with a past medical history of asthma, epileptic and nonepileptic seizures on Depakote, wqq-ieunwus-rczknjkqy diabetes mellitus who presents for evaluation. She states that she was sick earlier this month with COVID-19. She states improving after that illness. She states feeling sick again 1 day prior to presentation. She reports associated headache, myalgias, headache, sore throat and dry cough. She states no dyspnea or chest pain. She states no abdominal pain, nausea or vomiting. She reports few episodes of loose stools. She states no melena or hematochezia. She states no dysuria or urinary frequency/urgency. She states no flank pain. She states no ear pain. Related Data Home Medications ?Medication ?Instructions ?Recorded ?Confirmed metformin 500 mg tablet 500 mg PO BIDWM 07/30/23 06/08/24 divalproex 250 mg tablet,extended 250 mg PO BID 06/08/24 06/08/24 release 24 hr divalproex 500 mg tablet,extended 500 mg PO BID 06/08/24 06/08/24 release 24 hr Allergies Allergy/AdvReac Type Severity Reaction Status Date / Time Iodinated Contrast Media Allergy Intermediate Facial Verified 06/13/24 17:45 Swelling clindamycin [CLINDAMYCIN] Allergy Unknown ANAPHYLAXIS Verified 06/13/24 17:45 latex Allergy Itching Verified 06/13/24 17:45 Review of Systems 2 Review of Systems: ROS as per HPI [facility] Past Medical History Medical History Chronic allergic rhinitis Otitis media Hypoxia Viral pneumonia Infection due to human metapneumovirus (hMPV) Diabetes mellitus Epilepsy Surgical History Hx of cholecystectomy Social History Social History Household Members: Spouse and Children Housing: Apartment Do you presently have visiting nurse or other home services: No Alcohol intake: current Alcohol intake frequency: holidays/special occasions only Patient Tobacco Use Status: Never used Tobacco Advance Directives: Yes Advance Directives on File: Yes Advance Directives Date on File: 08/17/23 service: No Current occupational status: employed Physical Exam ED Vital Signs: Vital Signs - 24 hr 06/13/24 17:36 Temperature 99.0 F Pulse Rate 96 Respiratory Rate 16 Blood Pressure 124/61 Pulse Oximetry 98 Oxygen Delivery Method Room Air BMI result Body Mass Index 32.0 Gen: NAD, AOx3 HEENT: NCAT, EOMI, normal conjunctiva, uvula midline without edema, mild tonsillar edema with mild exudates, mild posterior oropharynx erythema CV: RRR Pulm: CTAB, no increased work of breathing, no wheezes, rhonchi or rales GI: Soft, NTND, no rebound, guarding or rigidity Neuro: Grossly non focal Medical Decision Making Medical Decision Making [facility] Narrative: Differential diagnosis includes, but is not limited to viral URI, viral pharyngitis, bacterial pharyngitis. Very low suspicion for pneumonia given 1 day of symptoms with no sputum production or dyspnea. I reviewed and interpreted labs, which are notable for mild leukopenia, which may be in the setting of acute viral illness. Diagnostic imaging studies are unremarkable for any acute findings. I considered use of antibiotics for bacterial pharyngitis, but strep test is negative and there is no indication for antibiotics at this time. On re-examination, patient is well-appearing and in no acute distress. ?Given well-appearing patient with stable vital signs here in the emergency room with 1 day of symptoms I do suspect that etiology of symptoms are likely viral in nature. There is no indication for further emergent evaluation in this otherwise well-appearing patient as above. ?Patient is provided written and verbal instructions, educational materials, recommendations for outpatient follow-up, strict return precautions and teach back is performed. ?Patient states understanding and agreement with plan of care. ?Patient is discharged home in stable and improved condition. Admission/Observation Consideration of admission/observation: Escalation of care including admission/observation considered Lab Data [facility] Lab Attestation statement: I reviewed the patient's lab results. I reviewed and interpreted patient's labs which are notable for mild leukopenia at 3.3 and otherwise are benign and reassuring with baseline anemia with hemoglobin 11.8 (previous 11.1). Patient tests negative for COVID-19, influenza and RSV. Rapid strep test is negative. 08/16/24 17:59 06/13/24 17:59 Labs: Lab Results 06/13/24 06/13/24 06/13/24 Range/Units 17:59 19:33 Unknown WBC 3.3 L (4.8-10.8) X10*3/uL RBC 3.54 L (4.20-5.50) X10*6/uL Hgb 11.8 L (12.0-16.0) g/dl Hct 34.3 L (37.0-47.0) % MCV 96.9 (80.0-98.0) fL MCH 33.3 H (27.0-33.0) pg MCHC 34.4 (31.0-35.0) g/dl RDW 12.9 (11.0-16.0) % Plt Count 247 (160-400) X10*3/uL MPV 9.6 (9.4-12.3) fL Immature Gran % (Auto) 0.6 H (0.0-0.4) % Neut % (Auto) 51.9 (45-73) % Lymph % (Auto) 30.4 (20-40) % [place] % (Auto) 15.6 H (2-11) % Eos % (Auto) 0.6 (0-4) % Baso % (Auto) 0.9 (0-2) % Lymph # (Auto) 1.0 L (1.2-4.9) X10*3/uL [place] # (Auto) 0.5 (0.1-1.2) X10*3/uL Eos # (Auto) 0.0 (0.0-0.4) X10*3/uL Baso # (Auto) 0.0 (0.0-0.2) X10*3/uL Abs Immat Gran (auto) 0.02 (0.00-0.03) X10*3/uL Absolute Neuts (auto) 1.7 L (2.0-8.3) x10*3/uL Absolute Nucleated RBC 0.000 (0.0-0.012) X10*3/uL Nucleated RBC % (auto) 0.0 (0.0-0.2) /100WBC Sodium 140 (135-145) mmol/L Potassium 4.1 (3.3-5.1) mmol/L Chloride 103 (96-108) mmol/L Carbon Dioxide 28 (22-29) mmol/L Anion Gap 13 (12-20) BUN 8 L (9-16) mg/dL Creatinine 0.60 (0.5-1.4) mg/dL Estim Creat Clear Calc 121.2 Estimated GFR > 60 Random Glucose 95 (60-115) mg/dL Calcium 9.7 D (8.4-10.2) mg/dL COVID-19 (TOÑA) Negative (Negative) COVID-19 Clin Com See Note Influenza Type A (YIN) Negative (Negative) Influenza Type B (YIN) Negative (Negative) Influenza A & B Note See Note S. pyogenes GrpA YIN Negative (Negative) Independent Interpretation I performed an independent interpretation of an: Plain X-Ray Interpretation: I independently reviewed and interpreted patient's chest x-ray which is unremarkable for any focal consolidation or pneumothorax. Radiology Impression Discussion of test interpretation with radiology: I have reviewed the radiologist's reading. Radiologist Impression: XR/XR chest 1V IMPRESSION: No acute cardiopulmonary disease. Dictated By: Abhinav Bishop Jr, DO Signed By: <Electronically signed by Abhinav Bishop Jr, DO in OV> 06/13/24 1802 Discharge Plan Discharge Clinical Impression: Upper respiratory infection, viral Patient Disposition: Home, Self-Care Instructions: Upper Respiratory Infection (ED) Additional Instructions: You were seen and evaluated in the emergency room. Your chest x-ray was normal and did not show evidence of pneumonia. You tested negative for COVID-19, influenza and RSV. Your strep test is negative. You are likely experiencing symptoms from a viral upper respiratory tract infection. Please continue to monitor for fever at home. Please take 600 mg ibuprofen every 6 hours as needed for pain/fever. Please always take with food and water. You may additionally take 1000 mg Tylenol every 8 hours as needed for additional pain/fever relief. Please follow-up with your primary care doctor in the next 5-7 days. ?Please return to the emergency room if you develop any worsening symptoms including, but not limited to chest pain or difficulty breathing. ? Prescriptions: No Action metformin 500 mg tablet 500 mg PO BIDWM divalproex 500 mg tablet extended release 24 hr 500 mg PO BID Rx Instructions: with 250 mg; total 750 mg BID divalproex 250 mg tablet extended release 24 hr 250 mg PO BID Rx Instructions: with 500 mg; total 750 mg BID Print Language: Occitan
[2024-06-13 19:50] LABS: IDNOW Serial# 08D9AD1C; Strep A Nucleic Acid Negative (Negative)
[2024-06-13 20:44] VITALS: BP 101/59; PULSE 96; RESP 18; TEMP 37.1; O2SAT 99
[2024-06-13 20:47] VITALS: O2SAT 97
[2024-06-13 20:49] VITALS: BP 101/59; PULSE 96; RESP 18; TEMP 37.1; O2SAT 96
== END 2024-06-13 20:51 | disposition home or self-care (01) ==
PROVIDERS: Physician Assistant; Emergency Provider Emergency Medicine; PCP Internal Medicine
DX: J06.9 Acute upper respiratory infection, unspecified (principal); J02.9 Acute pharyngitis, unspecified; R05.9 Cough, unspecified; Z03.818 Encounter for observation for suspected exposure to other biological agents ruled out; J45.909 Unspecified asthma, uncomplicated
CPT/HCPCS: 36415; 71045; 80048; 85025; 87502; 87635; 87651; 99283; 99284

== ENCOUNTER 2024-06-26 17:30 | Outpatient (REF) | payer MEDICAID, SELFPAY | END 2024-06-26 17:31 | disposition home or self-care (01) | LOC: HO.HHCLNP 17:30 | PROVIDERS: Visit Provider Advanced Practice Midwife | DX: R30.0 Dysuria (principal); R82.79 Other abnormal findings on microbiological examination of urine | CPT/HCPCS: 87086; 87147 ==

== ENCOUNTER 2024-07-02 14:51 | Emergency (ER) | payer MEDICAID, SELFPAY ==
[2024-07-02 14:56] VITALS: BP 111/57; BP 116/68; PULSE 80; PULSE 98; RESP 16; TEMP 36.9; O2SAT 97; O2SAT 99; BMI 32.8
--- NOTE | 2024-07-02 14:59 | ECG_ITS ---
Test Reason : SEIZURE Blood Pressure : / mmHG Vent. Rate : 092 BPM Atrial Rate : 092 BPM P-R Int : 130 ms QRS Dur : 082 ms QT Int : 346 ms P-R-T Axes : 057 048 016 degrees QTc Int : 427 ms Normal sinus rhythm Nonspecific T wave abnormality Abnormal ECG When compared with ECG of 07-JUN-2024 17:02, No significant change was found Referred By: Lon Flores Electronically Signed By:EHSAN AVILES
[2024-07-02] MEDS: Lactated Ringers 1,000 ML 999 ML IV (15:04)
--- NOTE | 2024-07-02 15:12 | ED.GENADULT ---
HPI - General Adult General Chief complaint: Seizure Stated complaint: SZ @ WORK,NO HEADSTRIKE,POSTICTAL PER EMS Time Seen by Provider: 07/02/24 14:59 Source: patient Mode of arrival: EMS Limitations: no limitations History of Present Illness HPI narrative: This is a 33-year-old woman with a past medical history of asthma, epileptic and nonepileptic seizures on Depakote, jip-mukjeep-zptjnwudu diabetes mellitus who presents by EMS for evaluation of seizure. Per bedside RN, EMS reports that patient works at a [employer] was noted to have seizure activity by staff. RN states that EMS reported that patient did not fall or hit her head and that she was in fact lowered to the padded mats in the studio. EMS states that they were told her seizure lasted for about 1-2 minutes. Patient states that she feels like she had a seizure today. She states that the only pain that she has is in the IV on her left hand. She states no other pain. She states feeling nauseous. She states no emesis. She states feeling tired. She states no headache, neck pain, speech changes, vision changes, chest pain, dyspnea, abdominal pain, back pain, urinary symptoms or changes to bowel habits. She states taking her Depakote 500 mg in the morning and 250 mg at night. She states that she has not missed doses. She reports taking her Depakote this morning. She states no fevers. She states that she drinks alcohol socially. Related Data Home Medications ?Medication ?Instructions ?Recorded ?Confirmed metformin 500 mg tablet 500 mg PO BIDWM 07/30/23 06/08/24 divalproex 250 mg tablet,extended 250 mg PO BID 06/08/24 06/08/24 release 24 hr divalproex 500 mg tablet,extended 500 mg PO BID 06/08/24 06/08/24 release 24 hr Allergies Allergy/AdvReac Type Severity Reaction Status Date / Time Iodinated Contrast Media Allergy Intermediate Facial Verified 07/02/24 14:59 Swelling clindamycin [CLINDAMYCIN] Allergy Unknown ANAPHYLAXIS Verified 07/02/24 14:59 latex Allergy Itching Verified 07/02/24 14:59 Review of Systems Review of Systems: ROS as per HPI PMF Past Medical History Medical History Chronic allergic rhinitis Otitis media Hypoxia Viral pneumonia Infection due to human metapneumovirus (hMPV) Diabetes mellitus Epilepsy Surgical History Hx of cholecystectomy Social History Social History Household Members: Spouse and Children Housing: Apartment Do you presently have visiting nurse or other home services: No Alcohol intake: current Alcohol intake frequency: holidays/special occasions only Patient Tobacco Use Status: Never used Tobacco Smoked in Last 30 Days: No Use of substances other than those prescribed or required for medical reasons: No Advance Directives: Yes Advance Directives on File: Yes Advance Directives Date on File: 08/17/23 Patient : No service: No Current occupational status: employed Physical Exam ED Vital Signs: Vital Signs - 24 hr 07/02/24 14:56 07/02/24 16:25 07/02/24 18:41 Temperature 98.4 F 97.8 F 98.3 F Pulse Rate 98 88 76 Respiratory Rate 16 17 17 Blood Pressure 111/57 L 108/46 L 102/49 L Pulse Oximetry 99 98 97 Oxygen Delivery Method Room Air Room Air Room Air BMI result Body Mass Index 32.8 Gen: NAD, AOx3, somnolent but easily arousable to voice, following commands and answering questions appropriately HEENT: NCAT, EOMI, normal conjunctiva, no lingual or buccal lacerations CV: RRR Pulm: CTAB, no increased work of breathing GI: Soft, NTND, no rebound, guarding or rigidity Neuro: CN 2-12 grossly intact, sensation intact to light touch in bilateral upper and lower extremities, moving all extremities spontaneously, symmetrical face, midline tongue protrusion Medications Administered Discontinued Medications Generic Name Dose Route Start Last Admin Trade Name Freq PRN Reason Stop Dose Admin Lactated Ringer's 1,000 mls @ 999 mls/hr 07/02/24 14:59 07/02/24 17:28 Lr IV 07/02/24 15:59 Infused .Q1H1M ONE Infusion Ketorolac Tromethamine 15 mg 07/02/24 17:43 07/02/24 17:57 Ketorolac Tromethamine 15 Mg/Ml Vial IVPUSH 07/02/24 17:44 15 mg ONCE ONE Administration Ondansetron HCl 4 mg 07/02/24 15:13 07/02/24 17:28 Ondansetron Hcl 4 Mg/2 Ml Vial IVPUSH 07/02/24 15:14 Not Given ONCE ONE Medical Decision Making Medical Decision Making [facility] Narrative: Differential diagnosis includes, but is not limited to epileptic seizure, nonepileptic seizure, electrolyte abnormality. I considered hyperglycemic, but the patient is awake and alert answering questions appropriately and following commands with no dextrose administered so this is very unlikely given that hyperglycemic seizure would not be expected to resolve without administration of dextrose. I considered alcohol withdrawal seizure, but patient reports that she is a social alcohol drinker so this is very unlikely. I have low suspicion for eclampsia given that patient is not hypertensive here in the emergency room. Regardless, we will obtain beta hCG. I considered arrhythmia, but EKG is reassuring as below. Patient was treated supportively on arrival with IV fluids and Zofran. Patient is afebrile and hemodynamically stable on room air. Exam is benign and reassuring. Patient has no focal neurological deficits. 1500 - NIHSS 0. I reviewed and interpreted labs, which are overall benign and reassuring. Patient had very mild lactic acidosis of 2.4, which cleared to 1.8. This likely type B lactic acidosis in the setting of nonepileptic seizure activity. I have low clinical suspicion for seizure given lack of appreciable postictal phase here in the emergency room, no significant lactic acidosis, no history of urinary incontinence or lingual/buccal lacerations on exam as above. I have a higher clinical suspicion for nonepileptic seizure. I considered treatment with nonepileptic medications here in the emergency room, but as mentioned have higher suspicion for nonepileptic seizure. I also considered benzodiazepines, but the patient did not have any witnessed seizure activity here in the emergency room for over 4 hours. I reviewed and interpreted EKG, which is unremarkable for any acute findings. Patient was provided Toradol for headache. On re-examination, patient is well-appearing and in no acute distress. ?Patient states symptoms have resolved. ?There is no indication for further emergent evaluation in this otherwise well-appearing patient as above. ?Patient is provided written and verbal instructions, educational materials, recommendations for outpatient follow-up, strict return precautions and teach back is performed. ?Patient states understanding and agreement with plan of care. ?Patient is discharged home in stable and improved condition. Critical Care Time: A total of 45 minutes spent in direct patient care with coordinating critical resuscitation, procedures, reviewing records, discussing with consultants, reviewing labs, and/or managing patient. Admission/Observation Consideration of admission/observation: Escalation of care including admission/observation considered Lab Data MDM Lab Attestation statement: I reviewed the patient's lab results. I reviewed and interpreted the patient's labs which are notable for a stable chronic anemia with hemoglobin of 10.6 (previous 11.8), lactic acid 2.4-> 1.8. Beta hCG is negative. Valproic acid within normal limits at 97 mcg per mL (reference range 50-100 mcg per mL) 07/02/24 15:15 07/02/24 15:15 Labs: Lab Results 07/02/24 07/02/24 Range/Units 15:15 17:37 WBC 6.2 (4.8-10.8) X10*3/uL RBC 3.23 L (4.20-5.50) X10*6/uL Hgb 10.6 L (12.0-16.0) g/dl Hct 31.4 L (37.0-47.0) % MCV 97.2 (80.0-98.0) fL MCH 32.8 (27.0-33.0) pg MCHC 33.8 (31.0-35.0) g/dl RDW 13.2 (11.0-16.0) % Plt Count 240 (160-400) X10*3/uL MPV 10.4 (9.4-12.3) fL Immature Gran % (Auto) 0.3 (0.0-0.4) % Neut % (Auto) 45.1 (45-73) % Lymph % (Auto) 45.6 H (20-40) % [place] % (Auto) 7.9 (2-11) % Eos % (Auto) 0.5 (0-4) % Baso % (Auto) 0.6 (0-2) % Lymph # (Auto) 2.8 (1.2-4.9) X10*3/uL [place] # (Auto) 0.5 (0.1-1.2) X10*3/uL Eos # (Auto) 0.0 (0.0-0.4) X10*3/uL Baso # (Auto) 0.0 (0.0-0.2) X10*3/uL Abs Immat Gran (auto) 0.02 (0.00-0.03) X10*3/uL Absolute Neuts (auto) 2.8 (2.0-8.3) x10*3/uL Absolute Nucleated RBC 0.000 (0.0-0.012) X10*3/uL Nucleated RBC % (auto) 0.0 (0.0-0.2) /100WBC Sodium 140 (135-145) mmol/L Potassium 3.9 (3.3-5.1) mmol/L Chloride 104 (96-108) mmol/L Carbon Dioxide 28 (22-29) mmol/L Anion Gap 12 (12-20) BUN 12 (9-16) mg/dL Creatinine 0.58 (0.5-1.4) mg/dL Estim Creat Clear Calc 127.1 Estimated GFR > 60 Random Glucose 140 H (60-115) mg/dL Lactic Acid 2.4 H* (0.5-2.0) mmol/L Lactic Acid F/U @ 2Hr 1.8 (0.5-2.0) mmol/L Calcium 9.8 (8.4-10.2) mg/dL Beta HCG, Quant < 2 mIU/mL Hold Red Top See Note Valproic Acid 97.0 (50.0-100.0) mcg/mL Independent Interpretation I performed an independent interpretation of an: EKG Interpretation: I independently reviewed and interpreted the patient's EKG which demonstrates a sinus rhythm at 92 beats per minute, NV 130, QRS 82, QTC 427, no Brugada morphology, no epsilon wave, no delta waves, no dagger-like Q-waves, no STEMI Discharge Plan Discharge Clinical Impression: Convulsion, non-epileptic Patient Disposition: Home, Self-Care Instructions: Nonepileptic Seizures (ED) Additional Instructions: Fue evaluado en emergencia por preocupaci?n por convulsiones. Cook an?lisis de marybel fue tranquilizador al igual que roberto signos vitales. Estuvo observado connie varias horas y no tuvo m?s convulsiones. Seamus un seguimiento con cook m?dico de atenci?n primaria y cook neur?logo en las pr?ximas 1 a 2 semanas. Regrese a la yadiel de emergencias si tiene alguna inquietud nueva. Prescriptions: No Action metformin 500 mg tablet 500 mg PO BIDWM divalproex 500 mg tablet extended release 24 hr 500 mg PO BID Rx Instructions: with 250 mg; total 750 mg BID divalproex 250 mg tablet extended release 24 hr 250 mg PO BID Rx Instructions: with 500 mg; total 750 mg BID Print Language: Iraqi
[2024-07-02 15:22] LABS: MANUAL DIFF FLAG NO
[2024-07-02 15:25] LABS: Basophils Percent Auto 0.6 % (0-2); Eosinophils Percent Auto 0.5 % (0-4); Hematocrit 31.4 % (37.0-47.0); Hemoglobin 10.6 g/dl (12.0-16.0); Imm Gran Abs Auto 0.02 X10*3/uL (0.00-0.03); Imm Gran Pct Auto 0.3 % (0.0-0.4); Lymphocytes Absolute Auto 2.8 X10*3/uL (1.2-4.9); Lymphocytes Percent Auto 45.6 % (20-40); Mean Corpuscular HGB Conc 33.8 g/dl (31.0-35.0); Mean Corpuscular Hemoglobin 32.8 pg (27.0-33.0); Mean Corpuscular Volume 97.2 fL (80.0-98.0); Mean Platelet Volume 10.4 fL (9.4-12.3); Monocytes Absolute Auto 0.5 X10*3/uL (0.1-1.2); Monocytes Percent Auto 7.9 % (2-11); Neutrophils Absolute Auto 2.8 x10*3/uL (2.0-8.3); Neutrophils Percent Auto 45.1 % (45-73); Platelet Count 240 X10*3/uL (160-400); Red Blood Count 3.23 X10*6/uL (4.20-5.50); Red Cell Distribution Width 13.2 % (11.0-16.0); White Blood Count 6.2 X10*3/uL (4.8-10.8)
[2024-07-02 15:35] LABS: Lactic Acid 2.4 mmol/L (0.5-2.0)
[2024-07-02 15:42] LABS: Anion Gap 12 (12-20); Blood Urea Nitrogen 12 mg/dL (9-16); Calcium 9.8 mg/dL (8.4-10.2); Carbon Dioxide 28 mmol/L (22-29); Chloride 104 mmol/L (96-108); Creatinine Clr Calc Pharmacy 127.1; Estimated Glomerular Filt Rate > 60; Glucose Random 140 mg/dL (60-115); Potassium 3.9 mmol/L (3.3-5.1); Sodium 140 mmol/L (135-145)
[2024-07-02 15:45] LABS: HCG Quantitative < 2 mIU/mL
[2024-07-02 16:25] VITALS: BP 108/46; PULSE 88; RESP 17; TEMP 36.6; O2SAT 98
[2024-07-02 17:19] LABS: Reflex Lactate? Lactic Acid Added
--- NOTE | 2024-07-02 17:37 | PC.NURSE ---
pt reporting increased pain/burning from EMS line, iv discontinued. 20G PIV placed R AC, labs obtained, pt tolerated well.
[2024-07-02 17:54] LABS: ~Lactic Acid-LAB USE ONLY 1.8 mmol/L (0.5-2.0)
[2024-07-02] MEDS: Ketorolac Tromethamine 15 MG/ML VIAL IVPUSH (17:57)
[2024-07-02 18:41] VITALS: BP 102/49; PULSE 76; RESP 17; TEMP 36.8; O2SAT 97
[2024-07-02 19:38] VITALS: BP 120/55; PULSE 81; RESP 12; TEMP 36.7; O2SAT 98
== END 2024-07-02 19:54 | disposition home or self-care (01) ==
PROVIDERS: Emergency Provider Emergency Medicine
DX: R56.9 Unspecified convulsions (principal); E11.9 Type 2 diabetes mellitus without complications; E87.20 Acidosis, unspecified; R51.9 Headache, unspecified; R29.700 NIHSS score 0; Z79.899 Other long term (current) drug therapy; Z79.84 Long term (current) use of oral hypoglycemic drugs
CPT/HCPCS: 36415; 80048; 80164; 83605; 84702; 85025; 93005; 96361; 96374; 99284; 99285; J1885; J7120

== ENCOUNTER 2024-07-18 18:30 | Emergency (ER) | payer MEDICAID, SELFPAY ==
--- NOTE | ~2024-07-18 | XR_ITS ---
EXAMINATION: Right wrist. CLINICAL INFORMATION: Wrist pain. Seizure. COMPARISON: None available. TECHNIQUE: Four views of the right wrist. FINDINGS: The bones and soft tissues are normal. No fracture. Alignment is anatomic. Joint spaces are maintained. No erosions or soft tissue calcifications. XR/XR hand wrist RT IMPRESSION: Normal right wrist. Electronically signed by: Laron Britton MD 07/18/2024 08:21 PM EDT RP
--- NOTE | ~2024-07-18 | CT_ITS ---
EXAMINATION: CT CERVICAL SPINE WITHOUT CONTRAST CLINICAL INFORMATION: Muscle spasm. Seizure. COMPARISON: None available. TECHNIQUE: Axial images obtained through the cervical spine. Coronal and sagittal reformatted images are performed with CT scan This CT examination was performed using dose optimization techniques as appropriate, variously including the following: *Automated exposure control *Adjustment of mA and/or kV according to patient size (this includes techniques or standardized protocols for targeted exams where dose is matched to indication/reason for exam; i.e. extremities or head) *Use of iterative reconstruction technique DLP: 420 mGy-cm FINDINGS: Cervical vertebrae have normal height and alignment. No fracture or subluxation. No prevertebral soft tissue swelling. Cervical disc heights are normal. Facet joints are normal. CT/CT cervical spine wo IV con IMPRESSION: Normal CT of cervical spine. Fleischner guidelines were followed. Electronically signed by: Laron Britton MD 07/18/2024 08:25 PM EDT
[2024-07-18 18:37] VITALS: BP 109/45; PULSE 81; RESP 18; TEMP 36.6; O2SAT 96; BMI 32.8
--- NOTE | 2024-07-18 18:41 | ED_ITS ---
HPI - Neck Pain/Injury General Chief Complaint: Neck Pain/Injury Stated Complaint: Fall 07/16 , neck pain Time Seen by Provider: 07/18/24 23:00 Source: patient, RN notes reviewed and old records reviewed Mode of arrival: ambulatory Limitations: no limitations History of Present Illness ED Provider: Matthew MEZA Narrative: 33-year-old female with past medical history significant for epilepsy maintained on Depakote who presents for evaluation of left-sided neck pain. Patient reports that she fell 2 days ago. She reports she fell when she was trying to take a seat and then got lightheaded She denies hitting her head or losing consciousness. She complains of left-sided neck pain that radiates into her left arm. She also complains of left wrist pain She states that she used her left arm to try to break her fall Her pain is 8/10, stabbing, worse with movement. The pain is keeping her from sleeping Related Data Home Medications ?Medication ?Instructions ?Recorded ?Confirmed metformin 500 mg tablet 500 mg PO BIDWM 07/30/23 06/08/24 divalproex 250 mg tablet,extended 250 mg PO BID 06/08/24 06/08/24 release 24 hr divalproex 500 mg tablet,extended 500 mg PO BID 06/08/24 06/08/24 release 24 hr Previous Rx's ?Medication ?Instructions ?Recorded cyclobenzaprine 10 mg tablet 10 mg PO TID PRN muscle spasm #15 07/18/24 tabs Allergies Allergy/AdvReac Type Severity Reaction Status Date / Time Iodinated Contrast Media Allergy Intermediate Facial Verified 07/18/24 18:39 Swelling clindamycin [CLINDAMYCIN] Allergy Unknown ANAPHYLAXIS Verified 07/18/24 18:39 latex Allergy Itching Verified 07/18/24 18:39 Review of Systems 2 Constitutional: Constitutional: Denies body ache(s), Denies chills, Denies fever(s), Denies frequent falls and Denies headache(s) ENT: Denies headache(s), Reports neck pain and Denies throat swelling Cardiovascular: Cardiovascular: Denies chest pain and Denies dyspnea Respiratory: Respiratory: Denies cough and Denies dyspnea Gastrointestinal: Gastrointestinal: Denies abdominal pain Musculoskeletal: Musculoskeletal: Denies arthralgias, Denies joint swelling, Denies limited range of motion, Reports neck pain, Reports radiating pain into limb, Reports stiffness and Denies tingling Integumentary/Breasts: Skin/Breast: Denies rash Neurologic: Denies frequent falls, Denies headache(s) and Denies tingling Allergic/Immunologic: Allergic/Immunologic: Denies throat swelling PMFSH Past Medical History Medical History Chronic allergic rhinitis Otitis media Hypoxia Viral pneumonia Infection due to human metapneumovirus (hMPV) Diabetes mellitus Epilepsy Surgical History Hx of cholecystectomy Social History Social History Household Members: Spouse and Children Housing: Apartment Do you presently have visiting nurse or other home services: No Alcohol intake: current Alcohol intake frequency: holidays/special occasions only Patient Tobacco Use Status: Never used Tobacco Smoked in Last 30 Days: No Use of substances other than those prescribed or required for medical reasons: No Advance Directives: Yes Advance Directives on File: Yes Advance Directives Date on File: 08/17/23 Do you have a plan to hurt others: No Plan service: No Current occupational status: employed Physical Exam 2 Vital Signs: Vital Signs: Last Vital Signs Temp 97.1 F 07/18/24 22:04 Pulse 72 07/18/24 22:04 Resp 18 07/18/24 22:04 BP 114/61 07/18/24 22:04 Pulse Ox 99 07/18/24 22:04 O2 Del Method Room Air 07/18/24 22:04 BMI result Body Mass Index 32.8 Const: General: healthy appearing, comfortable, no acute distress, alert and awake Nutritional Appearance: well nourished Orientation/consciousness: p atient oriented x3 HEENT: Head: Yes normocephalic and Yes atraumatic Eyes: Eyelids: Yes eyelids normal Conjunctivae: conjunctivae normal S clerae: sclerae normal Corneas: corneas normal Pupils: Equal, round and reactive pupils present EOM: EOMs intact bilaterally Neck: Neck: Yes full ROM Resp: Effort & Inspection: normal respiratory effort, able to speak in complete sentences and not labored Back/Spine/Pelvis: Other: Patient has no C-spine tenderness. She does have some tenderness to the left lateral paraspinous muscle region. There is some mild tenderness to the left trapezius muscle group region. She has full range of motion to the left shoulder, elbow and wrist. There is mild left wrist tenderness over the distal radius Skin: General skin exam: elasticity normal Neuro: General: patient oriented x3 Cranial nerves: Yes Equal, round and reactive pupils present and Yes Bilaterally intact EOM present Cognition (Neuro): normal cognition Course Course Course Narrative: This is a Rapid Medical Examination (RME) performed by Cuauhtemoc Ford PA-C in triage. Full HPI, ROS, assessment and treatment plan per primary provider in the Main ED. 33 yo female hx of epilepsy on Depakote here for eval of left sided neck pain/ spasm s/p seizure 2 days ago. reports falling off her kitchen chair during seizure. fell to ground, witnessed by . states her right hand/wrist broke the fall/ protected her head. denies head strike. endorses left sided neck pain since. unable to turn neck to left. denies TREVINO, vision changes. + torticollis to left. no midline spinous tenderness. Plan: labs, imaging Medical Decision Making Medical Decision Making [facility] Narrative: 33-year-old female presents for evaluation of left-sided neck pain and arm pain after falling 2 days ago. She does not believe she had a seizure as she was awake and represent entire event. Her workup shows no significant concerning lab abnormalities. She has a mild macrocytic anemia consistent with her baseline. Chemistries have no significant worrisome abnormalities. Her random glucose is slightly elevated to 126. The patient is not . She had a CT cervical spine ordered in triage that shows no acute traumatic injuries. Lab Data [facility] Lab Attestation statement: I reviewed the patient's lab results. 07/18/24 19:27 07/18/24 19:27 Labs: Lab Results 07/18/24 Range/Units 19:27 WBC 6.7 (4.8-10.8) X10*3/uL RBC 3.55 L (4.20-5.50) X10*6/uL Hgb 11.5 L (12.0-16.0) g/dl Hct 35.5 L (37.0-47.0) % MCV 100.0 H (80.0-98.0) fL MCH 32.4 (27.0-33.0) pg MCHC 32.4 (31.0-35.0) g/dl RDW 14.3 (11.0-16.0) % Plt Count 318 D (160-400) X10*3/uL MPV 10.3 (9.4-12.3) fL Immature Gran % (Auto) 0.4 (0.0-0.4) % Neut % (Auto) 44.2 L (45-73) % Lymph % (Auto) 48.6 H (20-40) % [place] % (Auto) 6.2 (2-11) % Eos % (Auto) 0.3 (0-4) % Baso % (Auto) 0.3 (0-2) % Lymph # (Auto) 3.3 (1.2-4.9) X10*3/uL [place] # (Auto) 0.4 (0.1-1.2) X10*3/uL Eos # (Auto) 0.0 (0.0-0.4) X10*3/uL Baso # (Auto) 0.0 (0.0-0.2) X10*3/uL Abs Immat Gran (auto) 0.03 (0.00-0.03) X10*3/uL Absolute Neuts (auto) 3.0 (2.0-8.3) x10*3/uL Absolute Nucleated RBC 0.000 (0.0-0.012) X10*3/uL Nucleated RBC % (auto) 0.0 (0.0-0.2) /100WBC Sodium 140 (135-145) mmol/L Potassium 4.0 (3.3-5.1) mmol/L Chloride 106 (96-108) mmol/L Carbon Dioxide 26 (22-29) mmol/L Anion Gap 12 (12-20) BUN 13 (9-16) mg/dL Creatinine 0.63 (0.5-1.4) mg/dL Estim Creat Clear Calc 116.9 Estimated GFR > 60 Random Glucose 126 H (60-115) mg/dL Calcium 9.0 D (8.4-10.2) mg/dL Magnesium 1.9 (1.6-2.6) mg/dL Total Bilirubin 0.2 (0.0-1.0) mg/dL AST 31 (5-31) U/L ALT 26 (0-31) U/L Alkaline Phosphatase 55 (39-117) U/L Total Protein 7.5 (6.5-8.0) g/dL Albumin 4.1 (3.5-5.0) g/dL Beta HCG, Quant < 2 mIU/mL Valproic Acid 99.9 (50.0-100.0) mcg/mL Independent Interpretation I performed an independent interpretation of an: Plain X-Ray (No obvious fracture of the left wrist) and CT Scan Interpretation: Agree with Radiology interpretation Radiology Impression Discussion of test interpretation with radiology: I have reviewed the radiologist's reading. Radiologist Impression: FINDINGS: Cervical vertebrae have normal height and alignment. No fracture or subluxation. No prevertebral soft tissue swelling. Cervical disc heights are normal. Facet joints are normal. CT/CT cervical spine wo IV con IMPRESSION: Normal CT of cervical spine. FINDINGS: The bones and soft tissues are normal. No fracture. Alignment is anatomic. Joint spaces are maintained. No erosions or soft tissue calcifications. XR/XR hand wrist RT IMPRESSION: Normal right wrist. Discharge Plan Discharge Clinical Impression: Cervical strain, acute Patient Disposition: Home, Self-Care Instructions: Cervical Strain (ED) Additional Instructions: Your workup in the ER today was reassuring. This includes your blood work, as well as a CT scan of your neck and your x-ray of your wrist There was no evidence of traumatic injury. You likely have a muscle spasm in your neck causing your pain Use cyclobenzaprine as needed for muscle spasms This may make you drowsy, do not drink alcohol or drive after taking it You may also use ibuprofen/Tylenol as needed for pain Prescriptions: New cyclobenzaprine 10 mg tablet 10 mg PO TID PRN (Reason: muscle spasm) Qty: 15 0RF No Action metformin 500 mg tablet 500 mg PO BIDWM divalproex 500 mg tablet extended release 24 hr 500 mg PO BID Rx Instructions: with 250 mg; total 750 mg BID divalproex 250 mg tablet extended release 24 hr 250 mg PO BID Rx Instructions: with 500 mg; total 750 mg BID Print Language: Romansh
--- NOTE | 2024-07-18 19:33 | MHC.EDTECH ---
Patient blood drawn and sent to lab .
[2024-07-18 19:35] LABS: MANUAL DIFF FLAG NO
[2024-07-18 19:40] LABS: Basophils Percent Auto 0.3 % (0-2); Eosinophils Percent Auto 0.3 % (0-4); Hematocrit 35.5 % (37.0-47.0); Hemoglobin 11.5 g/dl (12.0-16.0); Imm Gran Abs Auto 0.03 X10*3/uL (0.00-0.03); Imm Gran Pct Auto 0.4 % (0.0-0.4); Lymphocytes Absolute Auto 3.3 X10*3/uL (1.2-4.9); Lymphocytes Percent Auto 48.6 % (20-40); Mean Corpuscular HGB Conc 32.4 g/dl (31.0-35.0); Mean Corpuscular Hemoglobin 32.4 pg (27.0-33.0); Mean Platelet Volume 10.3 fL (9.4-12.3); Monocytes Absolute Auto 0.4 X10*3/uL (0.1-1.2); Monocytes Percent Auto 6.2 % (2-11); Neutrophils Percent Auto 44.2 % (45-73); Platelet Count 318 X10*3/uL (160-400); Red Blood Count 3.55 X10*6/uL (4.20-5.50); Red Cell Distribution Width 14.3 % (11.0-16.0); White Blood Count 6.7 X10*3/uL (4.8-10.8)
[2024-07-18 19:55] LABS: Valproate 99.9 mcg/mL (50.0-100.0)
[2024-07-18 19:57] LABS: Alanine Aminotransferase 26 U/L (0-31); Albumin Level 4.1 g/dL (3.5-5.0); Alkaline Phosphatase 55 U/L (39-117); Anion Gap 12 (12-20); Aspartate Amino Transferase 31 U/L (5-31); Bilirubin Total 0.2 mg/dL (0.0-1.0); Blood Urea Nitrogen 13 mg/dL (9-16); Carbon Dioxide 26 mmol/L (22-29); Chloride 106 mmol/L (96-108); Creatinine Clr Calc Pharmacy 116.9; Estimated Glomerular Filt Rate > 60; Glucose Random 126 mg/dL (60-115); Magnesium 1.9 mg/dL (1.6-2.6); Sodium 140 mmol/L (135-145); Total Protein 7.5 g/dL (6.5-8.0)
[2024-07-18 20:06] LABS: HCG Quantitative < 2 mIU/mL
[2024-07-18 22:04] VITALS: BP 114/61; PULSE 72; RESP 18; TEMP 36.2; O2SAT 99
--- NOTE | 2024-07-18 22:14 | PC.NURSE ---
PT reports she believes she had a seizure on 07/17. PT became dizzy-a typical antecedent to a seizure and then fell. was able to catch her to break her fall but she did hit the floor and since has had neck pain. she reports she is unable to sleep due to the pain 08/07 and has a TREVINO. Limited ROM, and pain with movement noted. VSS.
[2024-07-18] MEDS: Ketorolac Tromethamine 30 MG/ML VIAL IM (23:30)
[2024-07-18] MEDS: Cyclobenzaprine HCl 10 MG TABLET PO (23:30)
[2024-07-18 23:35] VITALS: BP 129/58; PULSE 76; RESP 15; TEMP 36.2; O2SAT 99
== END 2024-07-18 23:52 | disposition home or self-care (01) ==
PROVIDERS: Physician Assistant Medical; Emergency Provider Emergency Medicine
DX: S16.1XXA Strain of muscle, fascia and tendon at neck level, initial encounter (principal); M54.2 Cervicalgia; M25.531 Pain in right wrist; W19.XXXA Unspecified fall, initial encounter; Y93.89 Activity, other specified; Y92.89 Other specified places as the place of occurrence of the external cause; Y99.8 Other external cause status
CPT/HCPCS: 36415; 72125; 73110; 73130; 80053; 80164; 83735; 84702; 85025; 96372; 99284; J1885

== ENCOUNTER 2024-09-02 20:11 | Emergency (ER) | payer MEDICAID, SELFPAY ==
--- NOTE | ~2024-09-02 | XR_ITS ---
EXAMINATION: XR TIBIA AND FIBULA, RIGHT CLINICAL INFORMATION: Pain COMPARISON: None available. TECHNIQUE: AP and lateral views of the right tibia and fibula were obtained. FINDINGS: The bones and soft tissues are normal. No fracture. No osseous lesions. Insertional partially visualized calcaneal enthesopathy. XR/XR tibia fibula RT 2V IMPRESSION: Insertional partially visualized calcaneal enthesopathy. Electronically signed by: Homa Morales MD 09/02/2024 09:43 PM EST
[2024-09-02 20:53] VITALS: BP 135/47; PULSE 88; RESP 18; TEMP 36.7; O2SAT 99; BMI 31.7
--- NOTE | 2024-09-02 20:53 | ED_ITS ---
HPI - General Adult General Chief complaint: Extremity Injury, Lower Stated complaint: Right leg pain Time Seen by Provider: 09/03/24 03:00 Source: patient Mode of arrival: ambulatory Limitations: no limitations History of Present Illness ED Provider: Dr. Lupe Posadas HPI narrative: Patient comes to the emergency room complaining of a bruise to the right thomas area. Patient states that yesterday she was playing soccer, and she crashed against another player, thomas to thomas. Patient complaining of localized pain, did not hit her head, did not lose consciousness. Patient took Advil that was meant for headache but did not give her any relief for the thomas. Related Data Home Medications ?Medication ?Instructions ?Recorded ?Confirmed metformin 500 mg tablet 500 mg PO BIDWM 07/30/23 06/08/24 divalproex 250 mg tablet,extended 250 mg PO BID 06/08/24 06/08/24 release 24 hr divalproex 500 mg tablet,extended 500 mg PO BID 06/08/24 06/08/24 release 24 hr Previous Rx's ?Medication ?Instructions ?Recorded cyclobenzaprine 10 mg tablet 10 mg PO TID PRN muscle spasm #15 07/18/24 tabs acetaminophen 500 mg tablet 500 mg PO Q6H PRN fever or pain 09/03/24 #20 tabs ibuprofen 600 mg tablet 600 mg PO Q8H PRN pain #14 tabs 09/03/24 Allergies Allergy/AdvReac Type Severity Reaction Status Date / Time Iodinated Contrast Media Allergy Intermediate Facial Verified 09/02/24 20:58 Swelling clindamycin [CLINDAMYCIN] Allergy Unknown ANAPHYLAXIS Verified 09/02/24 20:58 latex Allergy Itching Verified 09/02/24 20:58 Review of Systems Review of Systems: Constitutional : No Weight loss, No Fever, No Chills, No Night Sweats, No Fatigue, No Malaise ENT/Mouth : No Hearing loss, No Ear Pain, No Nasal Congestion, No Sinus Pain, No Hoarseness, No sore throat, No Rhinorrhea, No Swallowing Difficulty Eyes: No Eye Pain, No Swelling, No Redness, No Foreign Body, No Discharge, No Vision Changes Cardiovascular : No Chest Pain, No SOB, No Dyspnea on Exertion, No Orthopnea, No Edema, No Palpitations Respiratory : No Cough, No Sputum, No Wheezing, No Smoke Exposure, No Dyspnea Gastrointestinal : No Nausea, No Vomiting, No Diarrhea, No Constipation, No abd ominal Pain, No Hematochezia, No Melena Genitourinary : no irregular bleeding, No Dysuria, No Urinary Frequency, No Hematuria, No Urinary Incontinence, No Urgency, No Flank Pain, No Urinary Flow Changes, No Hesitancy Musculoskeletal : No joint pain, No Myalgias, No Joint Swelling Skin : Complaining of a bruise to the right thomas Neuro : No Weakness, No Numbness, No Paresthesias, No Loss of Consciousness, No Dizziness, No Headache Psych : No Anxiety/Panic, No Depression, No SI/HI/AH/VH, No Social Issues, Heme/Lymph: No Bruising, No Bleeding,No Lymphadenopathy Endocrine : No Polyuria, No Polydipsia, No Temperature Intolerance [facility] Past Medical History Medical History Chronic allergic rhinitis Otitis media Hypoxia Viral pneumonia Infection due to human metapneumovirus (hMPV) Diabetes mellitus Epilepsy Surgical History Hx of cholecystectomy Social History Social History Household Members: Spouse and Children Housing: Apartment Do you presently have visiting nurse or other home services: No Alcohol intake: current Alcohol intake frequency: holidays/special occasions only Patient Tobacco Use Status: Never used Tobacco Advance Directives: Yes Advance Directives on File: Yes Advance Directives Date on File: 08/17/23 service: No Current occupational status: employed Physical Exam ED Vital Signs: Vital Signs - 24 hr 09/02/24 20:53 Temperature 98.1 F Pulse Rate 88 Respiratory Rate 18 Blood Pressure 135/47 L Pulse Oximetry 99 Oxygen Delivery Method Room Air BMI result Body Mass Index 31.7 Const Other: Appearance: Alert. Oriented X3. No acute distress. Eyes: Pupils equal, round and reactive to light. ENT: Pharynx normal. Neck: Normal inspection. Neck supple. No lymph nodes noted. No crepitus CVS: Normal heart rate and rhythm. Pulses normal. Normal S1 and S2 Respiratory: No respiratory distress. Breath sounds normal. No Wheezing. No rales Abdomen: Soft and nontender. No rigidity. No distention. Skin: Skin warm and dry. Normal skin color. Normal skin turgor. Patient has a 2 cm x 2 cm superficial ecchymosis to the right thomas. Mild ecchymosis to the inner aspect of the ankle. Patient is able to bear weight, no pain with flexion-extension, malleolus fracture is not suspected Extremities: No lower extremity edema. No Lacerations. No Rash Neuro: Oriented X 3. No motor deficit. No sensory deficit. Moving all extremities. No slurred speech. CN 2 through 12 grossly intact Psych: calm, cooperative, normal affect Course Course Course Narrative: This is a rapid medical exam performed by Lobo Schmidt [employer]: Additional HPI, ROS, PE not included below will be deferred to primary provider. Patient is a 33-year-old female presenting with right lower leg pain after getting hit with another player's thomas while playing soccer Sunday. Plan: xray Medical Decision Making Medical Decision Making MDM Narrative: I discussed with the patient that she has a bruise Differential Diagnosis Differential Diagnoses: The differential diagnosis associated with the presentation includes (Ecchymosis, contusion, fracture) Independent Interpretation I performed an independent interpretation of an: Plain X-Ray Radiology Impression Discussion of test interpretation with radiology: I have reviewed the radiologist's reading. Radiologist Impression: The bones and soft tissues are normal. No fracture. No osseous lesions. Insertional partially visualized calcaneal enthesopathy. XR/XR tibia fibula RT 2V IMPRESSION: Insertional partially visualized calcaneal enthesopathy. Discharge Plan Discharge Clinical Impression: Ecchymosis Patient Disposition: Home, Self-Care Instructions: Ecchymosis (ED) Additional Instructions: Please follow-up with your primary care physician tomorrow. If you have any worsening or new symptoms, please return to the emergency room or call 911 Prescriptions: New ibuprofen 600 mg tablet 600 mg PO Q8H PRN (Reason: pain) Qty: 14 0RF acetaminophen 500 mg tablet 500 mg PO Q6H PRN (Reason: fever or pain) Qty: 20 0RF No Action metformin 500 mg tablet 500 mg PO BIDWM divalproex 500 mg tablet extended release 24 hr 500 mg PO BID Rx Instructions: with 250 mg; total 750 mg BID divalproex 250 mg tablet extended release 24 hr 250 mg PO BID Rx Instructions: with 500 mg; total 750 mg BID cyclobenzaprine 10 mg tablet 10 mg PO TID PRN (Reason: muscle spasm) Qty: 15 0RF Print Language: Tunisian
[2024-09-03 03:36] VITALS: BP 135/47; PULSE 88; RESP 18; TEMP 36.7; O2SAT 99
== END 2024-09-03 03:36 | disposition home or self-care (01) ==
PROVIDERS: Emergency Provider Emergency Medicine; PCP Internal Medicine
DX: S80.11XA Contusion of right lower leg, initial encounter (principal); W51.XXXA Accidental striking against or bumped into by another person, initial encounter; Y93.66 Activity, soccer; Y92.322 Soccer field as the place of occurrence of the external cause; Y99.9 Unspecified external cause status
CPT/HCPCS: 73590; 99282; 99283

== ENCOUNTER 2024-09-06 12:05 | Emergency (ER) | payer MEDICAID, SELFPAY ==
--- NOTE | ~2024-09-06 | XR_ITS ---
EXAMINATION: XR LUMBOSACRAL SPINE CLINICAL INFORMATION: Fall, pain COMPARISON: Number spine radiographs dated 04/06/2023 TECHNIQUE: Three views of the lumbosacral spine. FINDINGS: No acute fracture or subluxation. Stable mild to moderate intervertebral disc space narrowing at L5-S1. Stable mild intervertebral disc space narrowing at L2-L3 and L3-L4. Minimal levoscoliosis is stable. Minimal endplate osteophytes. No vertebral body height loss. The posterior elements are normal. The paraspinal soft tissues are normal. XR/XR lumbar spine 2-3V IMPRESSION: 1. No acute fracture or subluxation. 2. Stable mild to moderate degenerative changes of the lumbar spine. Electronically signed by: Grace Soto MD 09/06/2024 03:51 PM [facility]
--- NOTE | ~2024-09-06 | XR_ITS ---
EXAMINATION: XR KNEE, LEFT CLINICAL INFORMATION: Fall, pain COMPARISON: None available. TECHNIQUE: Four views of the left knee. FINDINGS: No fracture or joint effusion. Alignment is anatomic. Joint spaces are maintained. No abnormal soft tissue calcification. XR/XR knee LT 4V IMPRESSION: Normal left knee. Electronically signed by: Harshal Devi DO 09/06/2024 03:08 PM [facility]
[2024-09-06 12:20] VITALS: BP 122/70; PULSE 78; RESP 16; TEMP 36.3; O2SAT 99; BMI 31.2
--- NOTE | 2024-09-06 12:21 | ED.LOWEXIN ---
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 She then fell backwards hitting her lower back. She denies head strike or loss of consciousness. She reports pain in her left knee which is worsened with ambulation. No associated weakness, numbness or tingling of the extremity. Patient denies any headache, neck pain, abdominal pain, chest pain, vomiting, vision changes, dizziness. Related Data Home Medications ?Medication ?Instructions ?Recorded ?Confirmed metformin 500 mg tablet 500 mg PO BIDWM 07/30/23 06/08/24 divalproex 250 mg tablet,extended 250 mg PO BID 06/08/24 06/08/24 release 24 hr divalproex 500 mg tablet,extended 500 mg PO BID 06/08/24 06/08/24 release 24 hr Previous Rx's ?Medication ?Instructions ?Recorded cyclobenzaprine 10 mg tablet 10 mg PO TID PRN muscle spasm #15 07/18/24 tabs acetaminophen 500 mg tablet 500 mg PO Q6H PRN fever or pain 09/03/24 #20 tabs ibuprofen 600 mg tablet 600 mg PO Q8H PRN pain #14 tabs 09/03/24 ibuprofen 600 mg tablet 600 mg PO Q8H PRN pain #20 tabs 09/06/24 lidocaine 5 % topical patch 1 patch topical DAILY #15 ea 09/06/24 (Lidoderm) Allergies Allergy/AdvReac Type Severity Reaction Status Date / Time Iodinated Contrast Media Allergy Intermediate Facial Verified 09/06/24 12:22 Swelling clindamycin [CLINDAMYCIN] Allergy Unknown ANAPHYLAXIS Verified 09/06/24 12:22 latex Allergy Itching Verified 09/06/24 12:22 Review of Systems Review of Systems: Yes all other systems are reviewed and are negative Constitutional: Constitutional: Reports no additional constitutional complaints, Denies body ache(s), Denies chills, Denies fever(s), Denies headache(s) and Denies weakness Eyes: Eyes: Reports no additional eye complaints and Denies change in vision ENT: Reports system reviewed and no additional complaints, except as documented, Denies dizziness, Denies headache(s), Denies nasal congestion, Denies nasal discharge and Denies neck pain Cardiovascular: Cardiovascular: Reports no additional cardiovascular complaints, Denies chest pain, Denies leg edema and Denies dyspnea Respiratory: Respiratory: Reports no additional respiratory complaints, Denies cough and Denies dyspnea Gastrointestinal: Gastrointestinal: Reports no additional gastrointestinal complaints, Denies abdominal pain, Denies diarrhea, Denies nausea and Denies vomiting Genitourinary: Genitourinary: Reports no additional female genitourinary complaints and Denies urinary incontinence Musculoskeletal: Musculoskeletal: Reports no additional musculoskeletal complaints, Reports back pain, Reports arthralgias, Reports joint swelling, Reports limited range of motion, Denies neck pain, Denies numbness and Denies tingling Integumentary/Breasts: Skin/Breast: Reports system reviewed and no additional complaints, except as docu and Denies rash Neurologic: Reports system reviewed and no additional complaints, except as documented, Denies Abnormal speech present, Denies dizziness, Denies headache(s), Denies numbness, Denies tingling and Denies weakness PMFSH Past Medical History Attestation statement: The following information was validated with the patient. Source: old records reviewed and nursing notes reviewed Medical History Chronic allergic rhinitis Otitis media Hypoxia Viral pneumonia Infection due to human metapneumovirus (hMPV) Diabetes mellitus Epilepsy Surgical History Hx of cholecystectomy Social History Social History Household Members: Spouse and Children Housing: Apartment Do you presently have visiting nurse or other home services: No Alcohol intake: current Alcohol intake frequency: holidays/special occasions only Patient Tobacco Use Status: Never used Tobacco Advance Directives: No Advance Directives Information Provided: No Advance Directives Date on File: 08/17/23 service: No Current occupational status: employed Physical Exam Vital Signs: Vital Signs: Last Vital Signs Temp 98.3 F 09/06/24 14:07 Pulse 89 09/06/24 14:07 Resp 18 09/06/24 14:07 BP 119/80 09/06/24 14:07 Pulse Ox 99 09/06/24 14:07 O2 Del Method Room Air 09/06/24 14:07 BMI result Body Mass Index 31.2 Const: General: cooperative, healthy appearing, comfortable and no acute distress Orientation/consciousness: patient oriented x3 Limitations: no limitations HEENT: Other: No hemotympanum No burns signs or racoon eyes Head: Yes normal to inspection Ears: hearing grossly normal bilaterally and TM's normal bilaterally General nose exam: Normal external nose present Face and sinus: Yes normal facial exam Mouth: Normal oral and palatal mucosa present Throat: Yes posterior oropharynx normal Eyes: General: appearance normal, both eyes and all related structures Pupils: Equal, round and reactive pupils present Neck: Other: No midline tenderness, step-offs or deformities Neck: Yes normal visual inspection and Yes full ROM Chest: Chest palpation & inspection: normal inspection of the chest Resp: Effort & Inspection: normal respiratory effort Auscultation: clear to auscultation bilaterally Cardio: Rate: regular rate Rhythm: regular rhythm Peripheral pulses: Peripheral pulses 2+ throughout GI: Inspection: Yes normal to inspection Palpation (GI): Soft to palpation and nontender Auscultation: normal bowel sounds : General: Yes no CVA tenderness Back/Spine/Pelvis: Other: +lumbar TTP No step offs or deformities Back: no CVA tenderness Thoracic/Lumbar Spine: thoracic and lumbar spine normal to inspection Skin: General skin exam: no rashes or lesions noted Neuro: General: patient oriented x3, no focal motor deficits and normal sensation to monofilament Cranial nerves: Yes Equal, round and reactive pupils present Cognition (Neuro): normal cognition Speech: No Abnormal speech present Gait exam (Neuro): Normal gait present Motor exam (neuro): 5/5 motor strength present throughout Deep tendon reflexes (DTR's): Right patellar reflex intensity grade: 2+ and Left patellar reflex intensity grade: 2+ Extrem: Other: TTP to anterior knee. NO pain over latera/medial or posterior knee. Pain with flexion. Full range of motion to the left ankle and foot. 2+ DP and PT pulses. Normal sensation. General: Yes normal to inspection Course Course Course Narrative: This is an RME performed by [employer]ak Quintero CNP: Additional HPI, ROS, PE not included below will be deferred to primary provider. Patient is a 33-year-old female presents emergency department for evaluation of traumatic left knee pain. Reports mechanical slip and fall while at work yesterday, of the left knee impacting the ground. Reports aching to the lower back and neck, no head strike or LOC. Admits to a recent sprain of her left ankle about 2 weeks ago. Plan: XR Reevaluation(s) Reevaluation #1: X-ray show no acute finding. Likely contusion. Patient will be placed in Reece wrap and given crutches for home. Reviewed rice. Reviewed supportive measures at home. Reviewed worrisome signs and symptoms of when to return to the emergency room. Comfortable plan for discharge home. Medications Administered Discontinued Medications Generic Name Dose Route Start Last Admin Trade Name Freq PRN Reason Stop Dose Admin Ibuprofen 600 mg 09/06/24 13:26 09/06/24 14:06 Ibuprofen 600 Mg Tablet PO 09/06/24 13:27 600 mg ONCE ONE Administration Medical Decision Making Medical Decision Making MDM Narrative: 33-year-old female here with lower back pain and left knee pain after mechanical fall yesterday. Patient has no neurological deficits or red flag symptoms. She has good CMS of the extremity. Will need imaging Differential Diagnosis Differential Diagnoses: The differential diagnosis associated with the presentation includes Fracture, contusion Low suspicion for vascular injury, dislocation Admission/Observation Consideration of admission/observation: Escalation of care including admission/observation considered Low suspicion for vascular injury, dislocation or complex fracture requiring advanced imaging, urgent orthopedic consultation Independent Interpretation I performed an independent interpretation of an: Plain X-Ray Interpretation: I independently reviewed the x-ray and agree with rad report Radiology Impression Discussion of test interpretation with radiology: I have reviewed the radiologist's reading. Radiologist Impression: [address] [address] XRay Report Signed Patient: Jerica Calix MR#: [id number] : 1990 Acct:[id number] Age/Sex: 33 / F ADM Date: 09/06/24 Loc: HO.ED Attending Dr: Ordering Physician: Radha Quintero CNP Date of Service: 09/06/24 Procedure(s): XR knee LT 4V Accession Number(s): [id number] cc: Kath Venegas MD; Radha Quintero CNP~ EXAMINATION: XR KNEE, LEFT CLINICAL INFORMATION: Fall, pain COMPARISON: None available. TECHNIQUE: Four views of the left knee. FINDINGS: No fracture or joint effusion. Alignment is anatomic. Joint spaces are maintained. No abnormal soft tissue calcification. XR/XR knee LT 4V IMPRESSION: Normal left knee. Electronically signed by: Harshal Devi DO 09/06/2024 03:08 PM EST RP [place] [address] XRay Report Signed Patient: Jerica Calix MR#: [id number] : 1990 Acct:[id number] Age/Sex: 33 / F ADM Date: 09/06/24 Loc: HO.ED Attending Dr: Ordering Physician: lCare Marlow NP Date of Service: 09/06/24 Procedure(s): XR lumbar spine 2-3V Accession Number(s): [id number] cc: Kath Venegas MD; Clare Marlow COMPANION CAREGIVER~ EXAMINATION: XR LUMBOSACRAL SPINE CLINICAL INFORMATION: Fall, pain COMPARISON: Number spine radiographs dated 04/06/2023 TECHNIQUE: Three views of the lumbosacral spine. FINDINGS: No acute fracture or subluxation. Stable mild to moderate intervertebral disc space narrowing at L5-S1. Stable mild intervertebral disc space narrowing at L2-L3 and L3-L4. Minimal levoscoliosis is stable. Minimal endplate osteophytes. No vertebral body height loss. The posterior elements are normal. The paraspinal soft tissues are normal. XR/XR lumbar spine 2-3V IMPRESSION: 1. No acute fracture or subluxation. 2. Stable mild to moderate degenerative changes of the lumbar spine. Electronically signed by: Grace Soto MD 09/06/2024 03:51 PM EST RP Independent Historian Clinical information obtained from an independent historian. History obtained from or confirmed by: Spouse Tests considered The following testing was considered but not selected: Low suspicion for vascular injury, complex fracture or dislocation requiring advanced imaging Prescription Management I considered prescription management with: Pain Medication Procedures Orthopedic Splinting/Casting Injury #1: Side: left Lower Extremity Injury Location: knee Lower Extremity Immobilizer: Reece wrap Other Orthopedic Equipment: crutches Discharge Plan Discharge Clinical Impression: Contusion of knee, left, Lumbar strain Patient Disposition: Home, Self-Care Instructions: Low Back Strain (ED), Contusion in Adults (ED) Additional Instructions: Use the Reece wrap and crutches at home for ambulating as needed Take the prescriptions as prescribed Elevate the knee, apply ice and use the Reece wrap and crutches as needed Follow up with primary care doctor next week for any continued symptoms Prescriptions: New ibuprofen 600 mg tablet 600 mg PO Q8H PRN (Reason: pain) Qty: 20 0RF lidocaine [Lidoderm] 5 % adhesive patch,medicated 1 patch topical DAILY Qty: 15 0RF Rx Instructions: leave on most painful area for up to 12 hrs No Action ibuprofen 600 mg tablet 600 mg PO Q8H PRN (Reason: pain) Qty: 14 0RF acetaminophen 500 mg tablet 500 mg PO Q6H PRN (Reason: fever or pain) Qty: 20 0RF metformin 500 mg tablet 500 mg PO BIDWM divalproex 500 mg tablet extended release 24 hr 500 mg PO BID Rx Instructions: with 250 mg; total 750 mg BID divalproex 250 mg tablet extended release 24 hr 250 mg PO BID Rx Instructions: with 500 mg; total 750 mg BID cyclobenzaprine 10 mg tablet 10 mg PO TID PRN (Reason: muscle spasm) Qty: 15 0RF Referrals: Kath Venegas MD [Primary Care Provider] - 1 week Stand Alone Forms: Work/School Release Print Language: Jordanian
[2024-09-06] MEDS: Ibuprofen 600 MG TABLET PO (14:06)
[2024-09-06 14:07] VITALS: BP 119/80; PULSE 89; RESP 18; TEMP 36.8; O2SAT 99
[2024-09-06 16:06] VITALS: BP 120/70; PULSE 77; RESP 20; TEMP 36.6
[2024-09-06 16:34] VITALS: BP 120/70; PULSE 77; RESP 20; TEMP 36.6
== END 2024-09-06 16:35 | disposition home or self-care (01) ==
PROVIDERS: Emergency Provider Emergency Medicine; PCP Internal Medicine
DX: S80.02XA Contusion of left knee, initial encounter (principal); S39.012A Strain of muscle, fascia and tendon of lower back, initial encounter; W01.0XXA Fall on same level from slipping, tripping and stumbling without subsequent striking against object, initial encounter; Y93.89 Activity, other specified; Y92.39 Other specified sports and athletic area as the place of occurrence of the external cause; Y99.0 Civilian activity done for income or pay
CPT/HCPCS: 72100; 73564; 99283

== ENCOUNTER 2024-09-11 15:44 | Emergency (ER) | payer MEDICAID, SELFPAY ==
--- NOTE | ~2024-09-11 | XR_ITS ---
EXAMINATION: XR ANKLE, RIGHT CLINICAL INFORMATION: Fall COMPARISON: None available. TECHNIQUE: AP, lateral, and mortise views of the right ankle. FINDINGS: No acute fracture or malalignment. The ankle mortise is preserved. Dorsal osteophyte at the talonavicular joint. Prominent enthesophyte at the Achilles insertion onto the posterior calcaneus. XR/XR ankle RT min 3V IMPRESSION: No acute fracture or malalignment. Electronically signed by: Carlin Sandhu MD 09/11/2024 05:16 PM ISELA
[2024-09-11 15:55] VITALS: BP 110/72; PULSE 95; RESP 20; TEMP 36.6; O2SAT 98; BMI 31.2
--- NOTE | 2024-09-11 15:55 | ED.LOWEXIN ---
HPI - Extremity Injury (Lower) General Chief Complaint: Extremity Problem Stated Complaint: left knee pain/ seen here 09/06 Time Seen by Provider: 09/11/24 17:54 Source: patient Mode of arrival: ambulatory Limitations: no limitations History of Present Illness ED Provider: Randy Crenshaw PA-C HPI Narrative: 33 yo female presents to the ER for evaluation of DM, seizures, who presents to the ER for evaluation of ongoing left knee pain and along with right lower leg pain for the last 3 weeks. Patient initially sustained an injury 3 weeks ago to her right lower extremity while she was playing soccer. She states she was kicked in the thomas and has had bruising and swelling in the area since. She then tripped and fell onto her left knee; she was seen here last on September 06 for evaluation of the left knee pain. XR left knee was unremarkable. She was given ibuprofen and reece wrap/knee brace. she reports ongoing pain in the right lower leg and left knee. she is concerned she has an injury to the left knee that may require surgery. she reports right ankle bruising is worsening. MD complaint: knee injury and leg injury Onset (ago): week(s) Type of Injury: blunt Place: home Severity: moderate Relieving factors: NSAID, immobilization and rest Exacerbating factors: weight bearing, movement and palpation Context: fall and direct blow Associated symptoms: swelling and ambulatory Other symptoms: none Treatments prior to arrival: NSAIDS Related Data Home Medications ?Medication ?Instructions ?Recorded ?Confirmed metformin 500 mg tablet 500 mg PO BIDWM 07/30/23 06/08/24 divalproex 250 mg tablet,extended 250 mg PO BID 06/08/24 06/08/24 release 24 hr divalproex 500 mg tablet,extended 500 mg PO BID 06/08/24 06/08/24 release 24 hr Previous Rx's ?Medication ?Instructions ?Recorded cyclobenzaprine 10 mg tablet 10 mg PO TID PRN muscle spasm #15 07/18/24 tabs acetaminophen 500 mg tablet 500 mg PO Q6H PRN fever or pain 09/03/24 #20 tabs ibuprofen 600 mg tablet 600 mg PO Q8H PRN pain #14 tabs 09/03/24 ibuprofen 600 mg tablet 600 mg PO Q8H PRN pain #20 tabs 09/06/24 lidocaine 5 % topical patch 1 patch topical DAILY #15 ea 09/06/24 (Lidoderm) naproxen 500 mg tablet 500 mg PO BID PRN pain #14 tabs 09/11/24 Allergies Allergy/AdvReac Type Severity Reaction Status Date / Time Iodinated Contrast Media Allergy Intermediate Facial Verified 09/11/24 15:58 Swelling clindamycin [CLINDAMYCIN] Allergy Unknown ANAPHYLAXIS Verified 09/11/24 15:58 latex Allergy Itching Verified 09/11/24 15:58 Review of Systems Review of Systems: Yes all other systems are reviewed and are negative [facility] Past Medical History Medical History Chronic allergic rhinitis Otitis media Hypoxia Viral pneumonia Infection due to human metapneumovirus (hMPV) Diabetes mellitus Epilepsy Surgical History Hx of cholecystectomy Social History Social History Household Members: Spouse and Children Housing: Apartment Do you presently have visiting nurse or other home services: No Alcohol intake: current Alcohol intake frequency: holidays/special occasions only Patient Tobacco Use Status: Never used Tobacco Advance Directives Date on File: 08/17/23 service: No Current occupational status: employed Physical Exam Vital Signs: Vital Signs: Last Vital Signs Temp 97.9 F 09/11/24 15:55 Pulse 95 09/11/24 15:55 Resp 20 09/11/24 15:55 BP 110/72 09/11/24 15:55 Pulse Ox 98 09/11/24 15:55 O2 Del Method Room Air 09/11/24 15:55 BMI result Body Mass Index 31.2 Appearance: Alert. Oriented X3. No acute distress. HEENT: normal inspection CVS: Normal heart rate and rhythm. Pulses normal. Respiratory: No respiratory distress. Skin: Skin warm and dry. Normal skin color. Normal skin turgor. No rashes. Extremities: Right lower leg with moderate amount of scattered ecchymosis, area of tenderness to the right middle tibia area with moderate swelling. Dependent ecchymosis in the right medial ankle with tenderness of the entire ankle. Limited range of motion due to pain and swelling. Neurovascularly intact distally. Left knee with small, yellowing ecchymosis and tenderness on the patella. Patellar tendon intact. Pain with full flexion. Pain with varus stress and valgus stress. No appreciated joint laxity Neuro: Oriented X 3. No motor deficit. No sensory deficit. Course Course Course Narrative: This is a Rapid Medical Exam performed in triage by Aurea Levine PA-C. Full HPI, ROS and PE to be performed by primary ED provider. 33-year-old female with a past medical history of diabetes, epilepsy, presenting to the ED c/o continued left knee, and right lower leg/ankle pain s/p fall at work on 09/05. Patient was evaluated in our ED on 09/06 for similar symptoms, had x-rays that were unremarkable. Reports continued pain despite prescribed medication. PE: + ecchymosis and swelling noted to left knee. Brace intact. + ecchymosis and swelling to RLE. NV intact distally Plan: Will obtain x-rays of contralateral side today Medical Decision Making Medical Decision Making MDM Narrative: 33-year-old female presenting to the ER for evaluation of right lower leg and ankle pain for the last 3 weeks after a soccer injury along with ongoing left knee pain after she slipped and fell at work over a week ago. X-rays of the knee were unremarkable. She has ongoing pain despite NSAIDs and wearing a knee brace. On appreciated joint laxity on examination but will refer to orthopedics for further evaluation and treatment. X-ray of her right ankle today was unremarkable. Place an Reece wrap for compression and support. Exam is consistent with a hematoma that is slowly healing. No evidence of compartment syndrome, compartments are soft and compressible, neurovascularly intact distally. She is ambulatory. Will prescribe a different NSAID, advised rest, ice, compression, elevation, activity modification. Will provide work note per request. Will have her follow up with Orthopedics and her PCP for further management. Patient agrees with plan Differential Diagnosis Differential Diagnoses: The differential diagnosis associated with the presentation includes Ankle sprain, ankle sprain, ankle fracture, hematoma, low suspicion for DVT or compartment syndrome Knee internal derangement/ligamentous injury Independent Interpretation I performed an independent interpretation of an: Plain X-Ray Interpretation: No acute fracture of the right ankle, agrees radiology read Radiology Impression Discussion of test interpretation with radiology: I have reviewed the radiologist's reading. Radiologist Impression: XR/XR ankle RT min 3V IMPRESSION: No acute fracture or malalignment. External Record Review External record reviewed: Outpatient record, Prior outpatient labs and Prior outpatient radiology Prescription Management I considered prescription management with: Pain Medication Procedures Orthopedic Splinting/Casting Injury #1: Side: right Lower Extremity Injury Location: lower leg and ankle Lower Extremity Immobilizer: Reece wrap Critical Care Time Critical Care Time Critical Care Time: No Discharge Plan Discharge Clinical Impression: Hematoma of right lower leg Knee pain, left Qualifiers: Chronicity: acute Qualified Code(s): M25.562 - Pain in left knee Patient Disposition: Home, Self-Care Instructions: Knee Pain (ED), Hematoma (ED) Additional Instructions: Your x-rays today were normal. Your exam is consistent with a slowly healing hematoma/bruising to the right lower leg and ankle. Recommend wearing the Reece wrap for compression and support, elevate and ice when possible. Follow-up with orthopedics for further evaluation of your left knee pain. Call for an appointment. Name and number below Take the prescribed anti-inflammatory medication as directed. Take it with food. Do not take it at the same time as ibuprofen. Rest, ice, elevate and compress the areas of pain/injury. Follow-up with your doctor. If you develop new or worsening symptoms call 911 or come back to the ER for further evaluation. Prescriptions: New naproxen 500 mg tablet 500 mg PO BID PRN (Reason: pain) Qty: 14 0RF No Action ibuprofen 600 mg tablet 600 mg PO Q8H PRN (Reason: pain) Qty: 14 0RF acetaminophen 500 mg tablet 500 mg PO Q6H PRN (Reason: fever or pain) Qty: 20 0RF metformin 500 mg tablet 500 mg PO BIDWM divalproex 500 mg tablet extended release 24 hr 500 mg PO BID Rx Instructions: with 250 mg; total 750 mg BID divalproex 250 mg tablet extended release 24 hr 250 mg PO BID Rx Instructions: with 500 mg; total 750 mg BID cyclobenzaprine 10 mg tablet 10 mg PO TID PRN (Reason: muscle spasm) Qty: 15 0RF ibuprofen 600 mg tablet 600 mg PO Q8H PRN (Reason: pain) Qty: 20 0RF lidocaine [Lidoderm] 5 % adhesive patch,medicated 1 patch topical DAILY Qty: 15 0RF Rx Instructions: leave on most painful area for up to 12 hrs Referrals: [facility] [place] [Provider Group] (left knee injury) Kath Venegas MD [Primary Care Provider] - Stand Alone Forms: Work/School Release Print Language: Bulgarian
[2024-09-11 18:31] VITALS: BP 110/72; PULSE 95; RESP 20; TEMP 36.6; O2SAT 98
== END 2024-09-11 18:31 | disposition home or self-care (01) ==
PROVIDERS: Emergency Provider Emergency Medicine; PCP Internal Medicine
DX: M25.562 Pain in left knee (principal); Z79.899 Other long term (current) drug therapy
CPT/HCPCS: 29515; 73610; 99282; 99283; 99284

== ENCOUNTER 2024-09-16 17:33 | Emergency (ER) | payer MEDICAID, SELFPAY ==
[2024-09-16 17:45] VITALS: BP 105/37; PULSE 88; RESP 18; TEMP 36.7; O2SAT 100; BMI 25.0
[2024-09-16 17:49] VITALS: BP 105/37; PULSE 95; RESP 18; TEMP 36.7; O2SAT 100
[2024-09-16 17:52] LABS: Glucose, Whole Blood 135 mg/dL (60-115)
--- NOTE | 2024-09-16 17:59 | ED.PSYCH ---
HPI - Psych General Chief Complaint: Seizure Stated Complaint: seizure like acivity Time Seen by Provider: 09/16/24 17:36 Source: patient and EMS Mode of arrival: EMS Limitations: no limitations History of Present Illness ED Provider: Dr. Stan Anderson HPI Narrative: 33-year-old female with a history of diabetes mellitus, asthma, seizure and pseudo-seizure who presents emergency department for change in mental status. 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 She states that she was leading a group when she started to hear an echo in her ear. She then developed a headache, lightheadedness, dizziness, numbness and tingling in her face, hands and extremities. She states that she was unable to move. She states that her body began to shake. An ambulance was called. Paramedics state that the patient was awake and able to respond to questions but not moving. Her vital signs were normal but her lips appeared cyanotic. Her O2 saturation was normal. During transport, paramedics report that the patient's eyes started fluttering but she was able to respond to questions. Patient states that her neurologist told her that she does not have epileptic seizures but has pseudoseizures and she needs to get psychiatric care. She states she was being tapered off her Depakote. Related Data Home Medications ?Medication ?Instructions ?Recorded ?Confirmed metformin 500 mg tablet 500 mg PO BIDWM 07/30/23 06/08/24 divalproex 250 mg tablet,extended 250 mg PO BID 06/08/24 06/08/24 release 24 hr divalproex 500 mg tablet,extended 500 mg PO BID 06/08/24 06/08/24 release 24 hr Previous Rx's ?Medication ?Instructions ?Recorded cyclobenzaprine 10 mg tablet 10 mg PO TID PRN muscle spasm #15 07/18/24 tabs acetaminophen 500 mg tablet 500 mg PO Q6H PRN fever or pain 09/03/24 #20 tabs ibuprofen 600 mg tablet 600 mg PO Q8H PRN pain #14 tabs 09/03/24 ibuprofen 600 mg tablet 600 mg PO Q8H PRN pain #20 tabs 09/06/24 lidocaine 5 % topical patch 1 patch topical DAILY #15 ea 09/06/24 (Lidoderm) naproxen 500 mg tablet 500 mg PO BID PRN pain #14 tabs 09/11/24 Allergies Allergy/AdvReac Type Severity Reaction Status Date / Time Iodinated Contrast Media Allergy Intermediate Facial Verified 09/16/24 17:47 Swelling clindamycin [CLINDAMYCIN] Allergy Unknown ANAPHYLAXIS Verified 09/16/24 17:47 latex Allergy Itching Verified 09/11/24 15:58 Review of Systems Review of Systems: Yes all other systems are reviewed and are negative [facility] Past Medical History [facility] Narrative: Social history: She denies tobacco, alcohol and drug use Medical History Chronic allergic rhinitis Otitis media Hypoxia Viral pneumonia Infection due to human metapneumovirus (hMPV) Diabetes mellitus Epilepsy Surgical History Hx of cholecystectomy Social History Social History Household Members: Spouse and Children Housing: Apartment Do you presently have visiting nurse or other home services: No Alcohol intake: current Alcohol intake frequency: holidays/special occasions only Patient Tobacco Use Status: Never used Tobacco Smoked in Last 30 Days: No Use of substances other than those prescribed or required for medical reasons: No Advance Directives: Yes Advance Directives on File: Yes Advance Directives Date on File: 08/17/23 Do you have a plan to hurt others: No Plan Patient : No service: No Current occupational status: employed Physical Exam Vital Signs: Vital Signs: Last Vital Signs Temp 98.1 F 09/16/24 19:57 Pulse 86 09/16/24 19:57 Resp 18 09/16/24 19:57 BP 116/57 L 09/16/24 19:57 Pulse Ox 98 09/16/24 19:57 O2 Del Method Room Air 09/16/24 19:57 BMI result Body Mass Index 25.0 Vital signs were normal Exam: General: Patient was very soft-spoken, she was crying, she does have tremors of her hands and feet, she does answer questions appropriately Head: Normocephalic, atraumatic EENT: PERRL, Lids normal, sclera normal, conjunctiva normal, nose normal , ears normal, throat without erythema or exudates Neck: Supple, no adenopathy Lung: breath sounds symmetric, no wheezing, rales or rhonchi Chest: symmetric movement, nontender Heart: regular rate and rhythm, normal S1, S2 no murmurs or rubs Abdomen: soft, non-tender, nondistended, normal bowel sounds Back: no vertebral tenderness, no CVAT Extremities: no deformities, moves all extremities symmetrically Neuro: Awake, alert, oriented, normal speech, cranial nerves intact, moves all extremities symmetrically Medications Administered Discontinued Medications Generic Name Dose Route Start Last Admin Trade Name Romi PRN Reason Stop Dose Admin Ketorolac Tromethamine 15 mg 09/16/24 17:57 09/16/24 18:10 Ketorolac Tromethamine 15 Mg/Ml Vial IVPUSH 09/16/24 17:58 15 mg ONCE STA Administration Lorazepam 2 mg 09/16/24 17:57 09/16/24 18:10 Lorazepam 2 Mg/Ml Vial IVPUSH 09/16/24 17:58 2 mg ONCE ONE Administration Medical Decision Making Medical Decision Making [facility] Narrative: 33-year-old female with a history of diabetes mellitus, asthma, seizure and pseudo-seizure who presents emergency department for change in mental status while she was leaving a group at her [employer] gym. Patient's states she initially hurt an echo in her ears and then developed symptoms numbness in her face, arms and legs, lightheadedness, dizziness, unable to move. Vital signs were normal. Physical examination revealed an anxious woman who was crying but otherwise was in no other distress. Her exam was unremarkable. Differential diagnosis: ?Includes but is not limited to seizure, pseudo-seizure, hyperventilation syndrome, anxiety, panic attack, electrolyte abnormalities, anemia Course: 18:06 Patient was ordered to get Ativan 2 mg IV and Toradol 15 mg IV. 22:54 My interpretation patient's laboratory evaluation as follows: Microcytic anemia with an H&H of 12.4 and 35.9 with an MCV of 100. Glucose elevated 131. AST and ALT elevated 36 and 41. The patient was feeling better and I did discuss nonepileptic seizures with the patient. I did tell her that she could benefit from being on medications for depression anxiety and she should follow up with her PCP to discuss further treatment. Admission/Observation Consideration of admission/observation: Escalation of care including admission/observation considered (Yes) Lab Data [facility] Lab Attestation statement: I reviewed the patient's lab results. 09/16/24 18:04 09/16/24 18:04 Labs: Lab Results 09/16/24 09/16/24 Range/Units 17:48 18:04 WBC 5.9 (4.8-10.8) X10*3/uL RBC 3.59 L (4.20-5.50) X10*6/uL Hgb 12.4 (12.0-16.0) g/dl Hct 35.9 L (37.0-47.0) % MCV 100.0 H (80.0-98.0) fL MCH 34.5 H (27.0-33.0) pg MCHC 34.5 (31.0-35.0) g/dl RDW 13.3 (11.0-16.0) % Plt Count 371 (160-400) X10*3/uL MPV 10.3 (9.4-12.3) fL Immature Gran % (Auto) 0.2 (0.0-0.4) % Neut % (Auto) 44.6 L (45-73) % Lymph % (Auto) 46.8 H (20-40) % [place] % (Auto) 7.2 (2-11) % Eos % (Auto) 0.7 (0-4) % Baso % (Auto) 0.5 (0-2) % Lymph # (Auto) 2.7 (1.2-4.9) X10*3/uL [place] # (Auto) 0.4 (0.1-1.2) X10*3/uL Eos # (Auto) 0.0 (0.0-0.4) X10*3/uL Baso # (Auto) 0.0 (0.0-0.2) X10*3/uL Abs Immat Gran (auto) 0.01 (0.00-0.03) X10*3/uL Absolute Neuts (auto) 2.6 (2.0-8.3) x10*3/uL Absolute Nucleated RBC 0.000 (0.0-0.012) X10*3/uL Nucleated RBC % (auto) 0.0 (0.0-0.2) /100WBC Sodium 138 (135-145) mmol/L Potassium 3.9 (3.3-5.1) mmol/L Chloride 107 (96-108) mmol/L Carbon Dioxide 24 (22-29) mmol/L Anion Gap 11 L (12-20) BUN 16 (9-16) mg/dL Creatinine 0.61 (0.5-1.4) mg/dL Estim Creat Clear Calc 119.1 Estimated GFR > 60 POC Glucose 135 H (60-115) mg/dL Random Glucose 131 H (60-115) mg/dL Calcium 8.9 (8.4-10.2) mg/dL Magnesium 1.9 (1.6-2.6) mg/dL Total Bilirubin 0.3 (0.0-1.0) mg/dL AST 36 H (5-31) U/L ALT 41 H (0-31) U/L Alkaline Phosphatase 74 (39-117) U/L Total Protein 7.6 (6.5-8.0) g/dL Albumin 4.2 (3.5-5.0) g/dL Beta-Hydroxybutyrate 0.05 (0.02-0.27) mmol/L Chronic Conditions Patient?s care impacted by: Diabetes Discharge Plan Discharge Clinical Impression: Psychogenic nonepileptic seizure, Anxiety attack Patient Disposition: Home, Self-Care Additional Instructions: Your blood work was unremarkable. Your presentation today is consistent with a nonepileptic seizure triggered by anxiety. You should follow-up with your doctor to get treatment for anxiety and depression and hopefully this will improve your nonepileptic seizures. Continue taking medications as prescribed. Follow-up with your doctor in 2 days. Please return to the emergency department if your symptoms get worse or if you develop any symptoms that are concerning to you. Prescriptions: No Action ibuprofen 600 mg tablet 600 mg PO Q8H PRN (Reason: pain) Qty: 14 0RF acetaminophen 500 mg tablet 500 mg PO Q6H PRN (Reason: fever or pain) Qty: 20 0RF naproxen 500 mg tablet 500 mg PO BID PRN (Reason: pain) Qty: 14 0RF metformin 500 mg tablet 500 mg PO BIDWM divalproex 500 mg tablet extended release 24 hr 500 mg PO BID Rx Instructions: with 250 mg; total 750 mg BID divalproex 250 mg tablet extended release 24 hr 250 mg PO BID Rx Instructions: with 500 mg; total 750 mg BID cyclobenzaprine 10 mg tablet 10 mg PO TID PRN (Reason: muscle spasm) Qty: 15 0RF ibuprofen 600 mg tablet 600 mg PO Q8H PRN (Reason: pain) Qty: 20 0RF lidocaine [Lidoderm] 5 % adhesive patch,medicated 1 patch topical DAILY Qty: 15 0RF Rx Instructions: leave on most painful area for up to 12 hrs Print Language: Georgian
[2024-09-16] MEDS: LORazepam 2 MG/ML VIAL IVPUSH (18:10)
[2024-09-16] MEDS: Ketorolac Tromethamine 15 MG/ML VIAL IVPUSH (18:10)
[2024-09-16 18:15] LABS: MANUAL DIFF FLAG NO
[2024-09-16 18:24] LABS: Basophils Percent Auto 0.5 % (0-2); Eosinophils Percent Auto 0.7 % (0-4); Hematocrit 35.9 % (37.0-47.0); Hemoglobin 12.4 g/dl (12.0-16.0); Imm Gran Abs Auto 0.01 X10*3/uL (0.00-0.03); Imm Gran Pct Auto 0.2 % (0.0-0.4); Lymphocytes Absolute Auto 2.7 X10*3/uL (1.2-4.9); Lymphocytes Percent Auto 46.8 % (20-40); Mean Corpuscular HGB Conc 34.5 g/dl (31.0-35.0); Mean Corpuscular Hemoglobin 34.5 pg (27.0-33.0); Mean Platelet Volume 10.3 fL (9.4-12.3); Monocytes Absolute Auto 0.4 X10*3/uL (0.1-1.2); Monocytes Percent Auto 7.2 % (2-11); Neutrophils Absolute Auto 2.6 x10*3/uL (2.0-8.3); Neutrophils Percent Auto 44.6 % (45-73); Platelet Count 371 X10*3/uL (160-400); Red Blood Count 3.59 X10*6/uL (4.20-5.50); Red Cell Distribution Width 13.3 % (11.0-16.0); White Blood Count 5.9 X10*3/uL (4.8-10.8)
[2024-09-16 18:35] LABS: Alanine Aminotransferase 41 U/L (0-31); Albumin Level 4.2 g/dL (3.5-5.0); Alkaline Phosphatase 74 U/L (39-117); Anion Gap 11 (12-20); Aspartate Amino Transferase 36 U/L (5-31); Bilirubin Total 0.3 mg/dL (0.0-1.0); Blood Urea Nitrogen 16 mg/dL (9-16); Calcium 8.9 mg/dL (8.4-10.2); Carbon Dioxide 24 mmol/L (22-29); Chloride 107 mmol/L (96-108); Creatinine Clr Calc Pharmacy 119.1; Estimated Glomerular Filt Rate > 60; Glucose Random 131 mg/dL (60-115); Magnesium 1.9 mg/dL (1.6-2.6); Potassium 3.9 mmol/L (3.3-5.1); Sodium 138 mmol/L (135-145); Total Protein 7.6 g/dL (6.5-8.0)
[2024-09-16 18:54] LABS: Beta-Hydroxybutyrate 0.05 mmol/L (0.02-0.27)
--- NOTE | 2024-09-16 19:47 | PC.NURSE ---
this rn assumed care of pt, pt resting in stretcher, no acute distress noted.
[2024-09-16 19:57] VITALS: BP 116/57; PULSE 86; RESP 18; TEMP 36.7; O2SAT 98
--- NOTE | 2024-09-16 20:02 | PC.NURSE ---
pt assisted in changing into gown, pt placed on tele, normal sinus 80-[address] seizure precautions in place.
[2024-09-16 23:11] VITALS: BP 112/47; PULSE 97; RESP 16; TEMP 36.8; O2SAT 98
[2024-09-16 23:12] VITALS: BP 112/47; PULSE 97; RESP 16; TEMP 36.8; O2SAT 98
--- NOTE | 2024-09-16 23:12 | PC.NURSE ---
pt awake and alert at this time, reports she is feeling better and would like to be d/c at this time, provider aware
== END 2024-09-16 23:14 | disposition home or self-care (01) ==
PROVIDERS: Emergency Provider Emergency Medicine Emergency Medical Services
DX: R56.9 Unspecified convulsions (principal); F41.9 Anxiety disorder, unspecified; E11.9 Type 2 diabetes mellitus without complications
CPT/HCPCS: 36415; 80053; 82010; 82947; 83735; 85025; 96374; 96375; 99284; J1885; J2060

== ENCOUNTER 2024-10-01 14:16 | Outpatient (AMB) | payer OTHER, MEDICAID, SELFPAY ==
--- NOTE | 2024-10-01 14:25 | MHC.OFFVIS ---
Vital Signs 10/01/24 14:27 Height 5 ft 5 in Weight 150 lb BMI 25.0 Intake Visit Reasons: New Pt - left knee pain, WC 09/05/24 Intake Note: Jerica a 34 year old female who presents today for a new patient evaluation of left knee s/p fall, wc injury, DOI 09/05/24. Patient reports pain on the anterior aspect of the left knee. She states it is very painful to use stairs. She is able to walk with difficulty. Patient was visibly limping to the exam room today. She has been taking Acetaminophen and Advil for pain without relief. Cell Biology Scientist Required: No Allergies Iodinated Contrast Media Allergy (Intermediate, Verified 10/01/24 14:27) Facial Swelling clindamycin [CLINDAMYCIN] Allergy (Unknown, Verified 10/01/24 14:27) ANAPHYLAXIS latex Allergy (Verified 10/01/24 14:27) Itching Medication List - Last Reconciled 10/01/24 by Jenn Barba PA-C acetaminophen 500 mg PO Q6H PRN cyclobenzaprine 10 mg PO TID PRN divalproex ER 500 mg PO BID divalproex ER 250 mg PO BID ibuprofen 600 mg PO Q8H PRN ibuprofen 600 mg PO Q8H PRN lidocaine 5% (Lidoderm) 1 patch topical DAILY metformin 500 mg PO BIDWM naproxen 500 mg PO BID PRN HPI HPI New Pt - left knee pain, WC 09/05/24: Details: 34-year-old female who presents to the office today for an evaluation of left knee pain s/p work injury where she fell and banged her left knee, 09/05/24. She currently states she has pain at the anterior aspect of her knee that is aggravated with stair use. She also experiences difficulty with ambulation and walks with a limp. She takes Advil and acetaminophen for her pain without benefits. 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 [facility] Medical History Chronic allergic rhinitis Otitis media Hypoxia Viral pneumonia Infection due to human metapneumovirus (hMPV) Diabetes mellitus Epilepsy Surgical History Hx of cholecystectomy Social History (Updated 10/01/24 @ 14:30 by BHUMIKA Talavera Household Members: Spouse and Children Housing: Apartment Do you presently have visiting nurse or other home services: No Alcohol intake: current Alcohol intake frequency: holidays/special occasions only Patient Tobacco Use Status: Never used Tobacco Advance Directives Date on File: 08/17/23 service: No Current occupational status: employed 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 Review of Systems Const All systems reviewed & are unremarkable except as noted in HPI and below Physical Exam Vital Signs: BMI result Body Mass Index 25.0 Const General: cooperative, healthy appearing, comfortable, no acute distress, well developed and alert Orientation/consciousness: patient oriented x3 HEENT Head: Yes normal to inspection, Yes normocephalic and Yes atraumatic Eyes General: appearance normal, both eyes and all related structures Resp Effort & Inspection: normal respiratory effort and able to speak in complete sentences Cardio Rate: regular rate Peripheral pulses: Peripheral pulses 2+ throughout GI Palpation (GI): Soft to palpation Skin Lesions: no lesions Rashes: no rashes Neuro General: patient oriented x3 Extrem Other: Left knee: Skin intact, no erythema or joint effusion. Tenderness along the medial and lateral joint line. Full ROM with crepitus. Negative Gerald?s. No ligamentous laxity. NVI. Results Reviewed Results Reviewed: xrays of the left knee obtained on 09/06/24 are negative for acute fracture or dislocations Assessment & Plan Assessment & Plan (1) Contusion of knee, left: Code(s): S80.02XA - Contusion of left knee, initial encounter Category: Medical (2) Prepatellar bursitis, left knee: Code(s): M70.42 - Prepatellar bursitis, left knee Category: Medical Plan She was fit for a knee brace in the office today to help with support. I also placed an order for physical therapy and a prescription of naproxen was given to help with her discomfort. She will return to work with limitations of desk work only for 4 weeks and then return to normal duty without restrictions. If symptoms persist or worsens, patient will contact the office, otherwise follow-up as needed. Medications: New naproxen 500 mg PO BID 60 tabs 3RF 30 days Patient Instructions: Scribed for Jenn Barba PA-C, by Jaime Abhang, medical coding specialist, on 10/01/2024 at 2:15 PM EST.? I, Jenn Barba PA-C, have personally reviewed and agree with the information entered by the scribe. Coding Level of Care Code New Pt Level 3 (76627) Complex EM visit Add On G2211 Diagnoses Contusion of knee, left S80.02XA Prepatellar bursitis, left knee M70.42
[2024-10-01 14:27] VITALS: BMI 25.0
== END 2024-10-01 14:59 | disposition home or self-care (01) ==
PROVIDERS: PCP Internal Medicine; Visit Provider Physician Assistant
DX: S80.02XA Contusion of left knee, initial encounter (principal); M70.42 Prepatellar bursitis, left knee
CPT/HCPCS: 99203; G2211

== ENCOUNTER → 2024-10-01 14:16 | Outpatient (BNVA) | payer MEDICAID, SELFPAY | PROVIDERS: PCP Internal Medicine; Visit Provider Physician Assistant | DX: S80.02XA Contusion of left knee, initial encounter (principal); M70.42 Prepatellar bursitis, left knee | CPT/HCPCS: 99202 ==

== ENCOUNTER 2024-10-06 17:56 | Outpatient (REF) | payer OTHER, MEDICAID, SELFPAY | END 2024-10-06 17:57 | disposition home or self-care (01) | LOC: HO.HHCLNP 17:56 | PROVIDERS: Visit Provider Registered Nurse | DX: L98.9 Disorder of the skin and subcutaneous tissue, unspecified (principal) | CPT/HCPCS: 36415; 87070; 87205; 87255 ==

== ENCOUNTER 2024-10-10 17:22 | Outpatient (REF) | payer OTHER, MEDICAID, SELFPAY | END 2024-10-10 17:23 | disposition home or self-care (01) | LOC: HO.HHCLNP 17:22 | PROVIDERS: Visit Provider Emergency Medicine | DX: J06.9 Acute upper respiratory infection, unspecified (principal) | CPT/HCPCS: 87070 ==

== ENCOUNTER 2024-10-18 21:47 | Emergency (ER) | payer MEDICAID, SELFPAY ==
[2024-10-18 22:12] VITALS: BP 138/74; PULSE 89; RESP 14; TEMP 36.8; O2SAT 97; BMI 34.2
[2024-10-18 22:37] LABS: MANUAL DIFF FLAG NO
[2024-10-18 22:49] LABS: Basophils Percent Auto 0.4 % (0-2); Eosinophils Absolute Auto 0.1 X10*3/uL (0.0-0.4); Eosinophils Percent Auto 0.8 % (0-4); Hematocrit 34.5 % (37.0-47.0); Hemoglobin 11.9 g/dl (12.0-16.0); Imm Gran Abs Auto 0.01 X10*3/uL (0.00-0.03); Imm Gran Pct Auto 0.1 % (0.0-0.4); Lymphocytes Absolute Auto 3.6 X10*3/uL (1.2-4.9); Lymphocytes Percent Auto 41.6 % (20-40); Mean Corpuscular HGB Conc 34.5 g/dl (31.0-35.0); Mean Corpuscular Hemoglobin 33.3 pg (27.0-33.0); Mean Corpuscular Volume 96.6 fL (80.0-98.0); Mean Platelet Volume 10.3 fL (9.4-12.3); Monocytes Absolute Auto 0.5 X10*3/uL (0.1-1.2); Monocytes Percent Auto 6.1 % (2-11); Neutrophils Absolute Auto 4.4 x10*3/uL (2.0-8.3); Platelet Count 315 X10*3/uL (160-400); Red Blood Count 3.57 X10*6/uL (4.20-5.50); Red Cell Distribution Width 12.5 % (11.0-16.0); White Blood Count 8.5 X10*3/uL (4.8-10.8)
[2024-10-18 22:54] LABS: Alanine Aminotransferase 78 U/L (0-31); Albumin Level 4.1 g/dL (3.5-5.0); Alkaline Phosphatase 77 U/L (39-117); Anion Gap 11 (12-20); Aspartate Amino Transferase 54 U/L (5-31); Bilirubin Total 0.3 mg/dL (0.0-1.0); Blood Urea Nitrogen 16 mg/dL (9-16); Calcium 9.1 mg/dL (8.4-10.2); Carbon Dioxide 24 mmol/L (22-29); Chloride 108 mmol/L (96-108); Creatinine Clr Calc Pharmacy 138.1; Estimated Glomerular Filt Rate > 60; Glucose Random 169 mg/dL (60-115); Lipase 42 U/L (8-78); Potassium 3.5 mmol/L (3.3-5.1); Sodium 139 mmol/L (135-145); Total Protein 7.5 g/dL (6.5-8.0)
[2024-10-18 22:57] LABS: COVID-19 Test Negative (Negative); IDNOW Serial# 55D5AD1C
[2024-10-18 22:58] LABS: IDNOW Serial# 58CA691E; Influenza A Negative (Negative); Influenza B2 Negative (Negative)
[2024-10-19] MEDS: 0.9 % Sodium Chloride 1,000 ML 999 ML IV (00:23)
[2024-10-19] MEDS: ondansetron HCL 4 MG/2 ML VIAL IVPUSH (00:25)
[2024-10-19] MEDS: Meclizine HCl 25 MG TABLET 50 MG PO (00:25)
--- NOTE | 2024-10-19 00:27 | ED.GENADULT ---
HPI - General Adult General Chief complaint: Dizziness Stated complaint: Dizziness, Headache, Sore Throat Time Seen by Provider: 10/18/24 23:54 Source: patient, RN notes reviewed and old records reviewed Mode of arrival: ambulatory Limitations: no limitations History of Present Illness ED Provider: Matthew HPI narrative: 34-year-old female with past medical history significant for seizure disorder, diabetes, status post cholecystectomy presents for evaluation of dizziness, weakness, subjective fevers and chills. Patient reports that she has been sick since Sunday, 5 days ago. She also was diagnosed with a throat infection about 2 weeks ago and did not completely antibiotics. She did take a dose today of her left over antibiotics The patient also reports intermittent dizziness Denies any chest pain, abdominal pain She is unsure if she is Related Data Home Medications ?Medication ?Instructions ?Recorded ?Confirmed metformin 500 mg tablet 500 mg PO BIDWM 07/30/23 10/01/24 divalproex 250 mg tablet,extended 250 mg PO BID 06/08/24 10/01/24 release 24 hr divalproex 500 mg tablet,extended 500 mg PO BID 06/08/24 10/01/24 release 24 hr Previous Rx's ?Medication ?Instructions ?Recorded cyclobenzaprine 10 mg tablet 10 mg PO TID PRN muscle spasm #15 07/18/24 tabs acetaminophen 500 mg tablet 500 mg PO Q6H PRN fever or pain 09/03/24 #20 tabs ibuprofen 600 mg tablet 600 mg PO Q8H PRN pain #14 tabs 09/03/24 ibuprofen 600 mg tablet 600 mg PO Q8H PRN pain #20 tabs 09/06/24 lidocaine 5 % topical patch 1 patch topical DAILY #15 ea 09/06/24 (Lidoderm) naproxen 500 mg tablet 500 mg PO BID PRN pain #14 tabs 09/11/24 naproxen 500 mg tablet 500 mg PO BID 30 days #60 tabs 10/01/24 meclizine 25 mg tablet 25 mg PO TID PRN dizziness #20 tabs 10/19/24 ondansetron 4 mg disintegrating 4 mg PO Q8H PRN nausea and 10/19/24 tablet vomiting #20 tabs Allergies Allergy/AdvReac Type Severity Reaction Status Date / Time Iodinated Contrast Media Allergy Intermediate Facial Verified 10/18/24 22:15 Swelling clindamycin [CLINDAMYCIN] Allergy Unknown ANAPHYLAXIS Verified 10/18/24 22:15 latex Allergy Itching Verified 10/18/24 22:15 Review of Systems Constitutional: Constitutional: Reports body ache(s), Reports chills, Reports fever(s), Denies headache(s), Reports malaise and Denies poor appetite ENT: Reports vertigo, Reports dizziness and Denies headache(s) Cardiovascular: Cardiovascular: Denies chest pain and Denies dyspnea Respiratory: Respiratory: Reports cough and Denies dyspnea Gastrointestinal: Gastrointestinal: Denies abdominal pain, Reports nausea and Denies vomiting Integumentary/Breasts: Skin/Breast: Denies rash Neurologic: Reports vertigo, Reports dizziness and Denies headache(s) Psychiatric: Psychiatric: Denies anxiety PMFSH Past Medical History Medical History Chronic allergic rhinitis Otitis media Hypoxia Viral pneumonia Infection due to human metapneumovirus (hMPV) Diabetes mellitus Epilepsy Surgical History Hx of cholecystectomy Social History Social History (Updated 10/01/24 @ 14:30 by BRENDA Talavera) Household Members: Spouse and Children Housing: Apartment Do you presently have visiting nurse or other home services: No Alcohol intake: current Alcohol intake frequency: holidays/special occasions only Patient Tobacco Use Status: Never used Tobacco Advance Directives: Yes Advance Directives on File: Yes Advance Directives Date on File: 08/17/23 Do you have a plan to hurt others: No Plan service: No Current occupational status: employed 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 Physical Exam ED Vital Signs: Vital Signs - 24 hr 10/18/24 22:12 Temperature 98.2 F Pulse Rate 89 Respiratory Rate 14 Blood Pressure 138/74 Pulse Oximetry 97 Oxygen Delivery Method Room Air BMI result Body Mass Index 34.2 Const General: healthy appearing, comfortable, no acute distress, alert and awake Nutritional Appearance: well nourished Orientation/consciousness: patient oriented x3 HENMT Other: Mildly erythematous oropharynx without exudates Head: Yes normocephalic and Yes atraumatic Throat: Yes posterior oropharynx normal Eyes Eyelids: Yes eyelids normal Conjunctivae: conjunctivae normal Sclerae: sclerae normal Corneas: corneas normal Pupils: Equal, round and reactive pupils present EOM: EOMs intact bilaterally Neck Neck: Yes full ROM Resp Effort & Inspection: normal respiratory effort, able to speak in complete sentences, no audible wheezes and not labored Auscultation: clear to auscultation bilaterally Cardio Rate: regular rate Rhythm: regular rhythm GI Inspection: No distended Palpation (GI): Soft to palpation, not firm, nontender, no guarding and not rigid Skin General skin exam: elasticity normal Neuro General: patient oriented x3 Cranial nerves: Yes Equal, round and reactive pupils present and Yes Bilaterally intact EOM present Cognition (Neuro): normal cognition Extrem Other: Moving all extremities well without any obvious deformities Course Reevaluation(s) Reevaluation #1: Patient re-evaluated, she reports feeling better after treatment. We will discharge her with Zofran and meclizine she has a follow up with her doctor on Sunday, tomorrow Time: 01:38 Medications Administered Discontinued Medications Generic Name Dose Route Start Last Admin Trade Name Freq PRN Reason Stop Dose Admin Sodium Chloride 1,000 mls @ 999 mls/hr 10/19/24 00:15 10/19/24 00:23 Ns IV 10/19/24 01:15 999 mls/hr .Q1H1M NAVEEN Administration Ketorolac Tromethamine 15 mg 10/19/24 00:41 10/19/24 00:53 Ketorolac Tromethamine 15 Mg/Ml Vial IVPUSH 10/19/24 00:42 15 mg ONCE ONE Administration Meclizine HCl 50 mg 10/19/24 00:15 10/19/24 00:25 Meclizine Hcl 25 Mg Tablet PO 10/19/24 00:16 50 mg ONCE ONE Administration Ondansetron HCl 4 mg 10/19/24 00:15 10/19/24 00:25 Ondansetron Hcl 4 Mg/2 Ml Vial IVPUSH 10/19/24 00:16 4 mg ONCE ONE Administration Medical Decision Making Medical Decision Making MDM Narrative: 34-year-old female presents for evaluation of flu-like symptoms. She complains of cough, fevers and chills, sore throat, nausea and vomiting, dizziness. She is afebrile, her vital signs are within normal limits, she was well-appearing. Her dizziness is most consistent with vertigo as it is worse with positional changes. This may be triggered by a viral illness causing her symptoms. She has no leukocytosis or left shift. She has a mild normocytic anemia which she has had in the past is chronic for. No significant electrolyte abnormalities. The patient is a known diabetic, in his no evidence of DKA. She was a mild elevation of AST and ALT which she has had in the past as well. The patient is not , hCG is less than 2 Lab Data MDM Lab Attestation statement: I reviewed the patient's lab results. See above 10/18/24 22:30 10/18/24 22:30 Labs: Lab Results 10/18/24 10/18/24 Range/Units 22:29 22:30 WBC 8.5 (4.8-10.8) X10*3/uL RBC 3.57 L (4.20-5.50) X10*6/uL Hgb 11.9 L (12.0-16.0) g/dl Hct 34.5 L (37.0-47.0) % MCV 96.6 (80.0-98.0) fL MCH 33.3 H (27.0-33.0) pg MCHC 34.5 (31.0-35.0) g/dl RDW 12.5 (11.0-16.0) % Plt Count 315 (160-400) X10*3/uL MPV 10.3 (9.4-12.3) fL Immature Gran % (Auto) 0.1 (0.0-0.4) % Neut % (Auto) 51.0 (45-73) % Lymph % (Auto) 41.6 H (20-40) % [place] % (Auto) 6.1 (2-11) % Eos % (Auto) 0.8 (0-4) % Baso % (Auto) 0.4 (0-2) % Lymph # (Auto) 3.6 (1.2-4.9) X10*3/uL [place] # (Auto) 0.5 (0.1-1.2) X10*3/uL Eos # (Auto) 0.1 (0.0-0.4) X10*3/uL Baso # (Auto) 0.0 (0.0-0.2) X10*3/uL Abs Immat Gran (auto) 0.01 (0.00-0.03) X10*3/uL Absolute Neuts (auto) 4.4 (2.0-8.3) x10*3/uL Absolute Nucleated RBC 0.000 (0.0-0.012) X10*3/uL Nucleated RBC % (auto) 0.0 (0.0-0.2) /100WBC Sodium 139 (135-145) mmol/L Potassium 3.5 (3.3-5.1) mmol/L Chloride 108 (96-108) mmol/L Carbon Dioxide 24 (22-29) mmol/L Anion Gap 11 L (12-20) BUN 16 (9-16) mg/dL Creatinine 0.54 (0.5-1.4) mg/dL Estim Creat Clear Calc 138.1 Estimated GFR > 60 Random Glucose 169 H (60-115) mg/dL Calcium 9.1 (8.4-10.2) mg/dL Total Bilirubin 0.3 (0.0-1.0) mg/dL AST 54 H (5-31) U/L ALT 78 H (0-31) U/L Alkaline Phosphatase 77 (39-117) U/L Total Protein 7.5 (6.5-8.0) g/dL Albumin 4.1 (3.5-5.0) g/dL Lipase 42 (8-78) U/L Beta HCG, Quant < 2 mIU/mL COVID-19 (TOÑA) Negative (Negative) COVID-19 Clin Com See Note Influenza Type A (YIN) Negative (Negative) Influenza Type B (YIN) Negative (Negative) Influenza A & B Note See Note S. pyogenes GrpA YIN Negative (Negative) Discharge Plan Discharge Clinical Impression: Acute viral syndrome, Vertigo Patient Disposition: Home, Self-Care Instructions: Vertigo (ED) Additional Instructions: Your workup in the ER today was reassuring. It is likely that you have vertigo which was treated with meclizine, IV fluids. Your blood work was reassuring. You may use Zofran as needed for nausea and vomiting. Take meclizine as needed for further dizziness. Follow-up with your doctor, return for new or worsening symptoms Prescriptions: New ondansetron 4 mg tablet,disintegrating 4 mg PO Q8H PRN (Reason: nausea and vomiting) Qty: 20 0RF meclizine 25 mg tablet 25 mg PO TID PRN (Reason: dizziness) Qty: 20 0RF No Action ibuprofen 600 mg tablet 600 mg PO Q8H PRN (Reason: pain) Qty: 14 0RF acetaminophen 500 mg tablet 500 mg PO Q6H PRN (Reason: fever or pain) Qty: 20 0RF naproxen 500 mg tablet 500 mg PO BID PRN (Reason: pain) Qty: 14 0RF metformin 500 mg tablet 500 mg PO BIDWM divalproex 500 mg tablet extended release 24 hr 500 mg PO BID Rx Instructions: with 250 mg; total 750 mg BID divalproex 250 mg tablet extended release 24 hr 250 mg PO BID Rx Instructions: with 500 mg; total 750 mg BID cyclobenzaprine 10 mg tablet 10 mg PO TID PRN (Reason: muscle spasm) Qty: 15 0RF ibuprofen 600 mg tablet 600 mg PO Q8H PRN (Reason: pain) Qty: 20 0RF lidocaine [Lidoderm] 5 % adhesive patch,medicated 1 patch topical DAILY Qty: 15 0RF Rx Instructions: leave on most painful area for up to 12 hrs naproxen 500 mg tablet 500 mg PO BID 30 Days Qty: 60 3RF Print Language: Pashto
[2024-10-19 00:31] LABS: IDNOW Serial# 08D9AD1C; Strep A Nucleic Acid Negative (Negative)
[2024-10-19 00:35] LABS: HCG Quantitative < 2 mIU/mL
[2024-10-19] MEDS: Ketorolac Tromethamine 15 MG/ML VIAL IVPUSH (00:53)
[2024-10-19 02:00] VITALS: BP 125/52; PULSE 77; RESP 16; TEMP 36.8; O2SAT 98
[2024-10-19 02:02] VITALS: BP 125/52; PULSE 77; RESP 16; TEMP 36.8; O2SAT 98
== END 2024-10-19 02:02 | disposition home or self-care (01) ==
PROVIDERS: Physician Assistant; Emergency Provider Emergency Medicine; PCP Internal Medicine
DX: B34.9 Viral infection, unspecified (principal); R42 Dizziness and giddiness; R11.2 Nausea with vomiting, unspecified; R05.9 Cough, unspecified; J02.9 Acute pharyngitis, unspecified; E11.9 Type 2 diabetes mellitus without complications; Z03.818 Encounter for observation for suspected exposure to other biological agents ruled out
CPT/HCPCS: 80053; 83690; 84702; 85025; 87502; 87635; 87651; 96361; 96374; 96375; 99284; J1885; J2405

== ENCOUNTER 2024-10-24 20:46 | Emergency (ER) | payer MEDICAID, SELFPAY ==
[2024-10-24 20:55] VITALS: BP 136/78; PULSE 96; RESP 19; TEMP 36.6; O2SAT 98; BMI 33.6
[2024-10-24 22:03] LABS: MANUAL DIFF FLAG NO
[2024-10-24 22:05] LABS: Basophils Percent Auto 0.4 % (0-2); Eosinophils Absolute Auto 0.1 X10*3/uL (0.0-0.4); Eosinophils Percent Auto 0.6 % (0-4); Hematocrit 39.3 % (37.0-47.0); Hemoglobin 13.7 g/dl (12.0-16.0); Imm Gran Abs Auto 0.02 X10*3/uL (0.00-0.03); Imm Gran Pct Auto 0.2 % (0.0-0.4); Lymphocytes Absolute Auto 3.4 X10*3/uL (1.2-4.9); Lymphocytes Percent Auto 35.3 % (20-40); Mean Corpuscular HGB Conc 34.9 g/dl (31.0-35.0); Mean Corpuscular Hemoglobin 33.3 pg (27.0-33.0); Mean Corpuscular Volume 95.6 fL (80.0-98.0); Monocytes Absolute Auto 0.6 X10*3/uL (0.1-1.2); Monocytes Percent Auto 6.5 % (2-11); Neutrophils Absolute Auto 5.5 x10*3/uL (2.0-8.3); Platelet Count 357 X10*3/uL (160-400); Red Blood Count 4.11 X10*6/uL (4.20-5.50); Red Cell Distribution Width 12.5 % (11.0-16.0); White Blood Count 9.7 X10*3/uL (4.8-10.8)
[2024-10-24 22:21] LABS: Anion Gap 15 (12-20); Blood Urea Nitrogen 11 mg/dL (9-16); Calcium 9.7 mg/dL (8.4-10.2); Carbon Dioxide 23 mmol/L (22-29); Chloride 102 mmol/L (96-108); Creatinine Clr Calc Pharmacy 134.3; Estimated Glomerular Filt Rate > 60; Glucose Random 109 mg/dL (60-115); Potassium 4.3 mmol/L (3.3-5.1); Sodium 137 mmol/L (135-145)
[2024-10-24 22:42] LABS: Influenza A PCR NEGATIVE (Negative); Influenza B PCR NEGATIVE (Negative); Resp Syncy Virus RNA Qual PCR NEGATIVE (Negative); SARS COV2 PCR INHOUSE NEGATIVE (Negative)
[2024-10-24 22:43] LABS: Appearance Urine Clear; Color Urine Yellow; Glucose Urine UA Negative (Negative); Leukocyte Esterase Urine Negative (Negative); Nitrite Urine Negative (Negative); Specific Gravity - Urine 1.015 (1.005-1.025); Urine Blood Negative (Negative); Urine Ketones Negative (Negative); Urine Protein Negative (Neg-Trace)
[2024-10-24 22:54] LABS: IDNOW Serial# 6674DD1D; Strep A Nucleic Acid Negative (Negative)
--- NOTE | 2024-10-25 00:34 | ED.GENADULT ---
HPI - General Adult General Chief complaint: Dizziness Stated complaint: headache/head and neck Time Seen by Provider: 10/25/24 00:34 History of Present Illness ED Provider: Ji MEZA narrative: The patient is a 34-year-old female who has a history of multiple emergency room visits. Today's visit represents the 23rd emergency room visit this calendar year. She apparently has a history of epileptic and nonepileptic seizures. The patient says that she was seen here 1 week ago for dizziness and a headache and was diagnosed with vertigo. She was prescribed meclizine. She says that her symptoms have persisted and today she also developed a left-sided headache and pain in the back of her neck. She also reports significant light sensitivity. Related Data Home Medications ?Medication ?Instructions ?Recorded ?Confirmed metformin 500 mg tablet 500 mg PO BIDWM 07/30/23 10/01/24 divalproex 250 mg tablet,extended 250 mg PO BID 06/08/24 10/01/24 release 24 hr divalproex 500 mg tablet,extended 500 mg PO BID 06/08/24 10/01/24 release 24 hr Previous Rx's ?Medication ?Instructions ?Recorded cyclobenzaprine 10 mg tablet 10 mg PO TID PRN muscle spasm #15 07/18/24 tabs acetaminophen 500 mg tablet 500 mg PO Q6H PRN fever or pain 09/03/24 #20 tabs ibuprofen 600 mg tablet 600 mg PO Q8H PRN pain #14 tabs 09/03/24 ibuprofen 600 mg tablet 600 mg PO Q8H PRN pain #20 tabs 09/06/24 lidocaine 5 % topical patch 1 patch topical DAILY #15 ea 09/06/24 (Lidoderm) naproxen 500 mg tablet 500 mg PO BID PRN pain #14 tabs 09/11/24 naproxen 500 mg tablet 500 mg PO BID 30 days #60 tabs 10/01/24 meclizine 25 mg tablet 25 mg PO TID PRN dizziness #20 tabs 10/19/24 ondansetron 4 mg disintegrating 4 mg PO Q8H PRN nausea and 10/19/24 tablet vomiting #20 tabs Allergies Allergy/AdvReac Type Severity Reaction Status Date / Time Iodinated Contrast Media Allergy Intermediate Facial Verified 10/24/24 21:04 Swelling clindamycin [CLINDAMYCIN] Allergy Unknown ANAPHYLAXIS Verified 10/24/24 21:04 latex Allergy Itching Verified 10/24/24 21:04 Review of Systems Review of Systems: Yes all other systems are reviewed and are negative [facility] Past Medical History Medical History Chronic allergic rhinitis Otitis media Hypoxia Viral pneumonia Infection due to human metapneumovirus (hMPV) Diabetes mellitus Epilepsy Surgical History Hx of cholecystectomy Social History Social History (Updated 10/01/24 @ 14:30 by BRENDA Talavera) Household Members: Spouse and Children Housing: Apartment Do you presently have visiting nurse or other home services: No Alcohol intake: current Alcohol intake frequency: holidays/special occasions only Patient Tobacco Use Status: Never used Tobacco Smoked in Last 30 Days: No Use of substances other than those prescribed or required for medical reasons: No Advance Directives: Yes Advance Directives on File: Yes Advance Directives Date on File: 08/17/23 Do you have a plan to hurt others: No Plan service: No Current occupational status: employed 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 She did not seem in acute distress. She was in a darkened room. HENMT Other: Face is symmetrical. Mucous membranes moist. The posterior pharynx is unremarkable. Tympanic membranes are normal bilaterally. Eyes Other: Pupils are round and equal. Conjunctivae are clear. Extraocular movements intact. Neck Other: She was moving her neck easily. She reported tenderness in the region of the upper cervical chains but I did not appreciate any discrete adenopathy. Resp Effort & Inspection: normal respiratory effort Auscultation: clear to auscultation bilaterally Cardio Rate: regular rate Rhythm: regular rhythm Heart sounds: S1 normal heart sound present and S2 normal heart sound present GI Other: Abdomen is soft and nontender Skin General skin exam: no rashes or lesions noted Neuro Other: The patient was awake and alert. She seemed to have a normal mental status. Face was symmetrical. Eye movements intact. Speech seems clear. She seemed to move her extremities normally. Finger-nose was normal bilaterally. Extrem Other: No peripheral edema Medications Administered Discontinued Medications Generic Name Dose Route Start Last Admin Trade Name Samsonq PRN Reason Stop Dose Admin Diphenhydramine HCl 25 mg 10/25/24 00:46 10/25/24 01:10 Diphenhydramine Hcl 50 Mg/Ml Vial IVPUSH 10/25/24 00:47 25 mg ONCE ONE Administration Sodium Chloride 1,000 mls @ 999 mls/hr 10/25/24 01:00 10/25/24 02:27 Ns IV 10/25/24 02:00 Infused .Q1H1M NAVEEN Infusion Acetaminophen 1,000 mg in 100 mls @ 400 mls/hr 10/25/24 00:46 10/25/24 01:32 Ofirmev IV 10/25/24 01:00 Infused ONCE ONE Infusion Ketorolac Tromethamine 10 mg 10/25/24 00:46 10/25/24 01:09 Ketorolac Tromethamine 15 Mg/Ml Vial IVPUSH 10/25/24 00:47 10 mg ONCE ONE Administration Metoclopramide HCl 10 mg 10/25/24 00:46 10/25/24 01:10 Metoclopramide Hcl 10 Mg/2 Ml Vial IVPUSH 10/25/24 00:47 10 mg ONCE ONE Administration Medical Decision Making Medical Decision Making [facility] Narrative: The patient is a 34-year-old female who presents with complaints of headache and dizziness. She seems quite photophobic. I suspect that this might be a migraine syndrome. She was treated with ketorolac, IV acetaminophen, metoclopramide, and diphenhydramine as well as a liter of IV normal saline. She was observed. She seemed to feel much better. She looked better. She felt comfortable being discharged. Lab Data 10/24/24 21:58 10/24/24 21:58 Labs: Lab Results 10/24/24 10/24/24 Range/Units 21:58 22:37 WBC 9.7 (4.8-10.8) X10*3/uL RBC 4.11 L (4.20-5.50) X10*6/uL Hgb 13.7 (12.0-16.0) g/dl Hct 39.3 (37.0-47.0) % MCV 95.6 (80.0-98.0) fL MCH 33.3 H (27.0-33.0) pg MCHC 34.9 (31.0-35.0) g/dl RDW 12.5 (11.0-16.0) % Plt Count 357 (160-400) X10*3/uL MPV 10.0 (9.4-12.3) fL Immature Gran % (Auto) 0.2 (0.0-0.4) % Neut % (Auto) 57.0 (45-73) % Lymph % (Auto) 35.3 (20-40) % [place] % (Auto) 6.5 (2-11) % Eos % (Auto) 0.6 (0-4) % Baso % (Auto) 0.4 (0-2) % Lymph # (Auto) 3.4 (1.2-4.9) X10*3/uL [place] # (Auto) 0.6 (0.1-1.2) X10*3/uL Eos # (Auto) 0.1 (0.0-0.4) X10*3/uL Baso # (Auto) 0.0 (0.0-0.2) X10*3/uL Abs Immat Gran (auto) 0.02 (0.00-0.03) X10*3/uL Absolute Neuts (auto) 5.5 (2.0-8.3) x10*3/uL Absolute Nucleated RBC 0.000 (0.0-0.012) X10*3/uL Nucleated RBC % (auto) 0.0 (0.0-0.2) /100WBC Sodium 137 (135-145) mmol/L Potassium 4.3 D (3.3-5.1) mmol/L Chloride 102 (96-108) mmol/L Carbon Dioxide 23 (22-29) mmol/L Anion Gap 15 (12-20) BUN 11 (9-16) mg/dL Creatinine 0.55 (0.5-1.4) mg/dL Estim Creat Clear Calc 134.3 Estimated GFR > 60 Random Glucose 109 (60-115) mg/dL Calcium 9.7 D (8.4-10.2) mg/dL Urine Color Yellow Urine Appearance Clear Urine pH 7.0 (5.0-9.0) Ur Specific [place] 1.015 (1.005-1.025) Urine Protein Negative (Neg-Trace) mg/dL Urine Glucose (UA) Negative (Negative) mg/dL Urine Ketones Negative (Negative) mg/dL Urine Blood Negative (Negative) Urine Nitrite Negative (Negative) Ur Leukocyte Esterase Negative (Negative) Influenza Type A (PCR) NEGATIVE (Negative) Influenza Type B (PCR) NEGATIVE (Negative) RSV RNA Qual (PCR) NEGATIVE (Negative) SARS-CoV-2 RNA (RT-PCR) NEGATIVE (Negative) S. pyogenes GrpA YIN Negative (Negative) Discharge Plan Discharge Clinical Impression: Headache, Dizziness Patient Disposition: Home, Self-Care Additional Instructions: Please rest and take it easy. Please continue your regular medications. Please contact your regular doctor's office on Sunday to schedule a follow up appointment for the symptoms you has been having recently. Return to the emergency room if significantly worse. Prescriptions: No Action ibuprofen 600 mg tablet 600 mg PO Q8H PRN (Reason: pain) Qty: 14 0RF acetaminophen 500 mg tablet 500 mg PO Q6H PRN (Reason: fever or pain) Qty: 20 0RF naproxen 500 mg tablet 500 mg PO BID PRN (Reason: pain) Qty: 14 0RF ondansetron 4 mg tablet,disintegrating 4 mg PO Q8H PRN (Reason: nausea and vomiting) Qty: 20 0RF meclizine 25 mg tablet 25 mg PO TID PRN (Reason: dizziness) Qty: 20 0RF metformin 500 mg tablet 500 mg PO BIDWM divalproex 500 mg tablet extended release 24 hr 500 mg PO BID Rx Instructions: with 250 mg; total 750 mg BID divalproex 250 mg tablet extended release 24 hr 250 mg PO BID Rx Instructions: with 500 mg; total 750 mg BID cyclobenzaprine 10 mg tablet 10 mg PO TID PRN (Reason: muscle spasm) Qty: 15 0RF ibuprofen 600 mg tablet 600 mg PO Q8H PRN (Reason: pain) Qty: 20 0RF lidocaine [Lidoderm] 5 % adhesive patch,medicated 1 patch topical DAILY Qty: 15 0RF Rx Instructions: leave on most painful area for up to 12 hrs naproxen 500 mg tablet 500 mg PO BID 30 Days Qty: 60 3RF Interventions: ED Discharge Assessment Last Done: 10/25/24 02:36 Discharge Date/Time: 10/25/24 02:36 Print Language: Cymraes
[2024-10-25] MEDS: 0.9 % Sodium Chloride 1,000 ML 999 ML IV (01:08)
[2024-10-25] MEDS: Acetaminophen 1,000 MG/100 ML PIGGYBACK 400 MG IV (01:09)
[2024-10-25] MEDS: Ketorolac Tromethamine 15 MG/ML VIAL 10 MG IVPUSH (01:09)
[2024-10-25] MEDS: diphenhydrAMINE HCL 50 MG/ML VIAL 25 MG IVPUSH (01:10)
[2024-10-25] MEDS: Metoclopramide HCl 10 MG/2 ML VIAL IVPUSH (01:10)
[2024-10-25 02:00] VITALS: BP 119/71; PULSE 81; RESP 16; TEMP 36.4; O2SAT 97
[2024-10-25 02:36] VITALS: BP 119/71; PULSE 81; RESP 16; TEMP 36.4; O2SAT 97
== END 2024-10-25 02:36 | disposition home or self-care (01) ==
PROVIDERS: Emergency Provider Emergency Medicine; PCP Internal Medicine
DX: R42 Dizziness and giddiness (principal); R51.9 Headache, unspecified; M54.2 Cervicalgia; H53.143 Visual discomfort, bilateral; R11.0 Nausea; Z79.899 Other long term (current) drug therapy; Z03.818 Encounter for observation for suspected exposure to other biological agents ruled out
CPT/HCPCS: 0241U; 80048; 81003; 85025; 87651; 96361; 96374; 96375; 99285; J0131; J1200; J1885; J2765

== ENCOUNTER 2024-11-04 11:27 | Emergency (ER) | payer MEDICAID, SELFPAY ==
--- NOTE | ~2024-11-04 | XR_ITS ---
EXAMINATION: XR CHEST CLINICAL INFORMATION: Coughing COMPARISON: Chest x-ray 06/13/2024 TECHNIQUE: Frontal view of the chest was obtained. FINDINGS: No significant abnormality is noted involving the heart, lungs, mediastinum, bony thorax or soft tissues. XR/XR chest 1V IMPRESSION: Unremarkable chest examination. Electronically signed by: José Luis Valdez MD 11/04/2024 12:37 PM [facility]
[2024-11-04 11:53] VITALS: BP 119/61; PULSE 87; RESP 18; TEMP 36.4; O2SAT 100; BMI 33.8
--- NOTE | 2024-11-04 11:57 | ED.GENADULT ---
HPI - General Adult General Chief complaint: Upper Respiratory Symptoms Stated complaint: Sore throat, headache Time Seen by Provider: 11/04/24 13:31 Source: patient Mode of arrival: ambulatory Limitations: no limitations History of Present Illness ED Provider: Janusz Snow HPI narrative: 34 yold female with pmh of DM, seizure, presents to the ED for sore throat, cough, and headache. patient's children have similar symptoms. Related Data Home Medications ?Medication ?Instructions ?Recorded ?Confirmed metformin 500 mg tablet 500 mg PO BIDWM 07/30/23 10/01/24 divalproex 250 mg tablet,extended 250 mg PO BID 06/08/24 10/01/24 release 24 hr divalproex 500 mg tablet,extended 500 mg PO BID 06/08/24 10/01/24 release 24 hr Previous Rx's ?Medication ?Instructions ?Recorded cyclobenzaprine 10 mg tablet 10 mg PO TID PRN muscle spasm #15 07/18/24 tabs acetaminophen 500 mg tablet 500 mg PO Q6H PRN fever or pain 09/03/24 #20 tabs ibuprofen 600 mg tablet 600 mg PO Q8H PRN pain #14 tabs 09/03/24 ibuprofen 600 mg tablet 600 mg PO Q8H PRN pain #20 tabs 09/06/24 lidocaine 5 % topical patch 1 patch topical DAILY #15 ea 09/06/24 (Lidoderm) naproxen 500 mg tablet 500 mg PO BID PRN pain #14 tabs 09/11/24 naproxen 500 mg tablet 500 mg PO BID 30 days #60 tabs 10/01/24 meclizine 25 mg tablet 25 mg PO TID PRN dizziness #20 tabs 10/19/24 ondansetron 4 mg disintegrating 4 mg PO Q8H PRN nausea and 10/19/24 tablet vomiting #20 tabs acetaminophen 325 mg tablet 325 mg PO QID PRN pain #28 tabs 11/04/24 (Tylenol) Allergies Allergy/AdvReac Type Severity Reaction Status Date / Time Iodinated Contrast Media Allergy Intermediate Facial Verified 11/04/24 11:56 Swelling clindamycin [CLINDAMYCIN] Allergy Unknown ANAPHYLAXIS Verified 11/04/24 11:56 latex Allergy Itching Verified 11/04/24 11:56 Review of Systems Review of Systems: Sore throat, headadche Yes all other systems are reviewed and are negative PMFSH Past Medical History Medical History Chronic allergic rhinitis Otitis media Hypoxia Viral pneumonia Infection due to human metapneumovirus (hMPV) Diabetes mellitus Epilepsy Surgical History Hx of cholecystectomy Social History Social History (Updated 10/01/24 @ 14:30 by BRENDA Talavera) Household Members: Spouse and Children Housing: Apartment Do you presently have visiting nurse or other home services: No Alcohol intake: current Alcohol intake frequency: holidays/special occasions only Patient Tobacco Use Status: Never used Tobacco Advance Directives: Yes Advance Directives on File: Yes Advance Directives Date on File: 08/17/23 service: No Current occupational status: employed 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 Physical Exam ED Vital Signs: Vital Signs - 24 hr 11/04/24 11:53 11/04/24 15:33 Temperature 97.5 F 97.5 F Pulse Rate 87 87 Respiratory Rate 18 18 Blood Pressure 119/61 119/61 Pulse Oximetry 100 100 Oxygen Delivery Method Room Air Room Air BMI result Body Mass Index 33.8 Const General: cooperative, healthy appearing, comfortable, no acute distress, well developed, alert, awake and Physically active Orientation/consciousness: patient oriented x3 HENMT Head: Yes normal to inspection, Yes No palpable skull fracture present, Yes normocephalic and Yes atraumatic Ears: hearing grossly normal bilaterally, external ears normal, TM's normal bilaterally, TM normal on the right, TM normal on the left, EAC's normal, mastoids normal and no periauricular adenopathy Throat: Yes posterior oropharynx normal, Yes tonsils normal and Yes uvula midline Eyes General: appearance normal, both eyes and all related structures Neck Neck: Yes normal visual inspection, Yes full ROM, Yes no lymphadenopathy, Yes no meningeal signs, Yes trachea midline, Yes supple, No anterior neck swelling and No tender Chest Chest palpation & inspection: normal inspection of the chest and normal palpation of entire chest wall Resp Effort & Inspection: normal respiratory effort and able to speak in complete sentences Auscultation: clear to auscultation bilaterally Cardio Jugular venous distension: no JVD Heart sounds: S1 normal heart sound present and S2 normal heart sound present GI Inspection: Yes normal to inspection Palpation (GI): Soft to palpation, not firm, nontender, no guarding and not rigid General: Yes no CVA tenderness Back/Spine/Pelvis Back: no CVA tenderness and No back tenderness Skin General skin exam: no rashes or lesions noted, elasticity normal and turgor normal Neuro General: patient oriented x3, gait normal, tone normal, moves all extremities, Normal light touch and pain sensation, no meningeal signs, no focal motor deficits, CN's II-XI intact bilaterally and normal sensation to monofilament Extrem General: Yes normal to inspection, Yes full ROM and Yes capillary refill normal Psych Appearance: grossly normal, well kempt and not disheveled Course Course Course Narrative: RmE: 33-year-old female presents to ED for sore throat headache and cough. Patient's children have similar symptoms. SARs strep x-ray ordered. Medical Decision Making Medical Decision Making MDM Narrative: 34-year-old female presents to ED for URI symptoms. Patient's children have similar symptoms. SARs strep chest x-ray ordered. 2:44pm: SARs strep chest x-ray negative. Patient well-appearing. Patient to be discharged. Not suspecting PE, [place], CHF, pericarditis, myocarditis, or respiratory failure. Patient explained worrisome signs informed to return to the ED immediately Differential Diagnosis Differential Diagnoses: The differential diagnosis associated with the presentation includes (SARs strep pneumonia) Admission/Observation Consideration of admission/observation: Escalation of care including admission/observation considered Lab Data [facility] Lab Attestation statement: I reviewed the patient's lab results. Labs: Lab Results 11/04/24 Range/Units 13:27 Influenza Type A (PCR) NEGATIVE (Negative) Influenza Type B (PCR) NEGATIVE (Negative) RSV RNA Qual (PCR) NEGATIVE (Negative) SARS-CoV-2 RNA (RT-PCR) NEGATIVE (Negative) S. pyogenes GrpA YIN Negative (Negative) Independent Interpretation I performed an independent interpretation of an: Plain X-Ray Radiology Impression Discussion of test interpretation with radiology: I have reviewed the radiologist's reading. Independent Historian Clinical information obtained from an independent historian. History obtained from or confirmed by: Other (Patient) External Record Review External record reviewed: Other (Prior visits) Prescription Management I considered prescription management with: Pain Medication Discharge Plan Discharge Clinical Impression: Upper respiratory infection Patient Disposition: Home, Self-Care Instructions: Upper Respiratory Infection (ED) Additional Instructions: Recommend follow-up with primary care provider. Return to the ED immediately for any chest pain, shortness of breath, coughing up blood, weakness, dizziness, or any other concerning symptoms. Your chest x-ray came back normal. YOu came back negative for COVID, RSV, strep, and influenza. Prescriptions: New acetaminophen [Tylenol] 325 mg tablet 325 mg PO QID PRN (Reason: pain) Qty: 28 0RF No Action ibuprofen 600 mg tablet 600 mg PO Q8H PRN (Reason: pain) Qty: 14 0RF acetaminophen 500 mg tablet 500 mg PO Q6H PRN (Reason: fever or pain) Qty: 20 0RF naproxen 500 mg tablet 500 mg PO BID PRN (Reason: pain) Qty: 14 0RF ondansetron 4 mg tablet,disintegrating 4 mg PO Q8H PRN (Reason: nausea and vomiting) Qty: 20 0RF meclizine 25 mg tablet 25 mg PO TID PRN (Reason: dizziness) Qty: 20 0RF metformin 500 mg tablet 500 mg PO BIDWM divalproex 500 mg tablet extended release 24 hr 500 mg PO BID Rx Instructions: with 250 mg; total 750 mg BID divalproex 250 mg tablet extended release 24 hr 250 mg PO BID Rx Instructions: with 500 mg; total 750 mg BID cyclobenzaprine 10 mg tablet 10 mg PO TID PRN (Reason: muscle spasm) Qty: 15 0RF ibuprofen 600 mg tablet 600 mg PO Q8H PRN (Reason: pain) Qty: 20 0RF lidocaine [Lidoderm] 5 % adhesive patch,medicated 1 patch topical DAILY Qty: 15 0RF Rx Instructions: leave on most painful area for up to 12 hrs naproxen 500 mg tablet 500 mg PO BID 30 Days Qty: 60 3RF Stand Alone Forms: Work/School Release Interventions: ED Discharge Assessment Last Done: 11/04/24 15:33 Discharge Date/Time: 11/04/24 15:33 Print Language: Turkish
[2024-11-04 13:41] LABS: IDNOW Serial# 58CA691E; Strep A Nucleic Acid Negative (Negative)
[2024-11-04 14:23] LABS: Influenza A PCR NEGATIVE (Negative); Influenza B PCR NEGATIVE (Negative); Resp Syncy Virus RNA Qual PCR NEGATIVE (Negative); SARS COV2 PCR INHOUSE NEGATIVE (Negative)
[2024-11-04 15:33] VITALS: BP 119/61; PULSE 87; RESP 18; TEMP 36.4; O2SAT 100
== END 2024-11-04 15:33 | disposition home or self-care (01) ==
PROVIDERS: Physician Assistant; Emergency Provider Emergency Medicine; PCP Internal Medicine
DX: J06.9 Acute upper respiratory infection, unspecified (principal); J02.9 Acute pharyngitis, unspecified; R51.9 Headache, unspecified; R05.9 Cough, unspecified; Z03.818 Encounter for observation for suspected exposure to other biological agents ruled out
CPT/HCPCS: 0241U; 71045; 87651; 99282; 99283

== ENCOUNTER → 2024-11-04 11:56 | Outpatient (BNV) | payer MEDICAID, SELFPAY | PROVIDERS: PCP Internal Medicine; Visit Provider Radiology Diagnostic Radiology | DX: R05.9 Cough, unspecified (principal) | CPT/HCPCS: 71045 ==

== ENCOUNTER 2024-11-15 08:06 | Outpatient (REF) | payer MEDICAID, SELFPAY ==
--- NOTE | ~2024-11-15 | MR_ITS ---
CLINICAL HISTORY: persistent dizzines and migraines MR Brain without gadolinium Comparison: None Findings: No restricted diffusion. No intracranial mass or hemorrhage. No midline shift. No hydrocephalus. Vascular flow voids are intact. Orbital contents are unremarkable. Left maxillary sinus polyp/retention cyst. No focal bone lesion. Mildly prominent nasopharyngeal tonsil/adenoid may be reactive or inflammatory/infectious in nature. Correlate clinically. IMPRESSION: Unremarkable brain. No acute infarct. Mildly prominent nasopharyngeal tonsil/adenoid may be reactive or inflammatory/infectious in nature. Correlate clinically. This document has been electronically signed by: Cynthia Renteria MD on 11/17/2024 10:37:29
== END 2024-11-15 08:07 | disposition home or self-care (01) ==
LOC: HO.MRI 08:06
PROVIDERS: PCP Internal Medicine; Visit Provider Internal Medicine
DX: G43.709 Chronic migraine without aura, not intractable, without status migrainosus (principal); R42 Dizziness and giddiness
CPT/HCPCS: 70551

== ENCOUNTER → 2024-11-15 08:14 | Outpatient (BNV) | payer MEDICAID, SELFPAY | PROVIDERS: PCP Internal Medicine; Visit Provider Radiology Diagnostic Radiology | DX: G43.709 Chronic migraine without aura, not intractable, without status migrainosus (principal) | CPT/HCPCS: 70551 ==

== ENCOUNTER 2024-12-09 15:40 | Emergency (ER) | payer MEDICAID, SELFPAY ==
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
[2024-12-09 16:07] VITALS: BP 146/78; PULSE 90; O2SAT 100
--- NOTE | 2024-12-09 16:16 | ED.FALL ---
HPI - Fall General Chief Complaint: Dizziness Stated Complaint: fell vertigo Time Seen by Provider: 12/09/24 16:14 Source: patient Mode of arrival: EMS Limitations: no limitations History of Present Illness ED Provider: Dr. Stan Anderson HPI Narrative: 33-year-old female with a history of diabetes mellitus, asthma, seizure and pseudo-seizure who presents emergency department for sudden onset of vertigo and fall. The patient states that she was in class when she had a sudden onset of dizziness. She states she stood up and lost her balance and fell backwards striking her head. She states she had loss of consciousness for proximally 2 minutes. She states that the dizziness is consistent with her vertigo. Patient states that she was sick over the weekend since she rode in the back of a car for a long period of time and got car sick which caused her to vomit. She otherwise denied fever, chills, rhinorrhea, cough, chest pain, shortness of breath, nausea, vomiting, diarrhea. She was currently complaining of pain in her left elbow but has no difficulty moving her elbow. She was also complaining of severe headache 06/07 and dizziness. Related Data Home Medications ?Medication ?Instructions ?Recorded ?Confirmed metformin 500 mg tablet 500 mg PO BIDWM 07/30/23 10/01/24 divalproex 250 mg tablet,extended 250 mg PO BID 06/08/24 10/01/24 release 24 hr divalproex 500 mg tablet,extended 500 mg PO BID 06/08/24 10/01/24 release 24 hr Previous Rx's ?Medication ?Instructions ?Recorded cyclobenzaprine 10 mg tablet 10 mg PO TID PRN muscle spasm #15 07/18/24 tabs acetaminophen 500 mg tablet 500 mg PO Q6H PRN fever or pain 09/03/24 #20 tabs ibuprofen 600 mg tablet 600 mg PO Q8H PRN pain #14 tabs 09/03/24 ibuprofen 600 mg tablet 600 mg PO Q8H PRN pain #20 tabs 09/06/24 lidocaine 5 % topical patch 1 patch topical DAILY #15 ea 09/06/24 (Lidoderm) naproxen 500 mg tablet 500 mg PO BID PRN pain #14 tabs 09/11/24 naproxen 500 mg tablet 500 mg PO BID 30 days #60 tabs 10/01/24 meclizine 25 mg tablet 25 mg PO TID PRN dizziness #20 tabs 10/19/24 ondansetron 4 mg disintegrating 4 mg PO Q8H PRN nausea and 10/19/24 tablet vomiting #20 tabs acetaminophen 325 mg tablet 325 mg PO QID PRN pain #28 tabs 11/04/24 (Tylenol) meclizine 25 mg tablet (Dramamine 25 mg PO TID PRN dizziness #20 tabs 12/09/24 Less Drowsy) Allergies Allergy/AdvReac Type Severity Reaction Status Date / Time Iodinated Contrast Media Allergy Intermediate Facial Verified 12/09/24 16:49 Swelling clindamycin [CLINDAMYCIN] Allergy Unknown ANAPHYLAXIS Verified 12/09/24 16:49 latex Allergy Itching Verified 12/09/24 16:49 Review of Systems Review of Systems: Yes all other systems are reviewed and are negative PMFSH Past Medical History Medical History Chronic allergic rhinitis Otitis media Hypoxia Viral pneumonia Infection due to human metapneumovirus (hMPV) Diabetes mellitus Epilepsy Surgical History Hx of cholecystectomy Social History Social History (Updated 10/01/24 @ 14:30 by BRENDA Talavera) Household Members: Spouse and Children Housing: Apartment Do you presently have visiting nurse or other home services: No Alcohol intake: current Alcohol intake frequency: holidays/special occasions only Patient Tobacco Use Status: Never used Tobacco Advance Directives: Yes Advance Directives on File: Yes Advance Directives Date on File: 08/17/23 service: No Current occupational status: employed 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 Physical Exam Vital Signs: Vital Signs: Last Vital Signs Temp 97.9 F 12/09/24 20:00 Pulse 91 12/09/24 20:00 Resp 18 12/09/24 20:00 BP 146/68 H 12/09/24 20:00 Pulse Ox 100 12/09/24 20:00 O2 Del Method Room Air 12/09/24 20:00 BMI result Body Mass Index 33.5 Exam: General: Awake, alert in no distress Head: Normocephalic, patient was tenderness palpation of the occipital region of her head, no obvious hematoma felt on palpation EENT: PERRL, Lids normal, sclera normal, conjunctiva normal, nose normal , ears normal, throat without erythema or exudates Neck: Supple, no adenopathy Lung: breath sounds symmetric, no wheezing, rales or rhonchi Chest: symmetric movement, nontender Heart: regular rate and rhythm, normal S1, S2 no murmurs or rubs Abdomen: soft, non-tender, nondistended, normal bowel sounds Back: no vertebral tenderness, no CVAT Extremities: no deformities, moves all extremities symmetrically, left upper extremity exam revealed no tenderness with palpation over the elbow or forearm, she was full range of motion of her elbow, forearm and shoulder Neuro: Awake, alert, oriented, normal speech, cranial nerves intact, moves all extremities symmetrically Psych: Pleasant, cooperative Medications Administered Discontinued Medications Generic Name Dose Route Start Last Admin Trade Name Freq PRN Reason Stop Dose Admin Ketorolac Tromethamine 60 mg 12/09/24 20:52 12/09/24 21:07 Ketorolac Tromethamine 60 Mg/2 Ml Vial IM 12/09/24 20:53 60 mg ONCE ONE Administration Lorazepam 1 mg 12/09/24 16:34 12/09/24 16:57 Lorazepam 1 Mg Tablet PO 12/09/24 16:35 1 mg ONCE ONE Administration Meclizine HCl 25 mg 12/09/24 16:34 12/09/24 16:57 Meclizine Hcl 25 Mg Tablet PO 12/09/24 16:35 25 mg ONCE STA Administration Medical Decision Making Medical Decision Making MDM Narrative: 33-year-old female with a history of diabetes mellitus, asthma, seizure and pseudo-seizure who presents emergency department for sudden onset of vertigo and fall. Patient does have a history of vertigo. She states that over the weekend she rode in the back seat of a car for long period of time and did get car sick but otherwise she has been in her usual state of health. She reports falling backwards, striking her head and having 2 minute loss of consciousness. At the time my evaluation she was complaining of headache neck pain and left elbow pain. Physical examination revealed no significant findings in her left upper extremity. Patient did have tenderness with palpation of her occipital area of her scalp with no hematoma. Neurologic exam was nonfocal. Differential diagnosis: ?Includes but is not limited to benign positional vertigo, vasovagal syncope, skull fracture, intracranial bleed, facial fracture, neck sprain Course: Given her fall and her reported loss of consciousness for 2 minutes, I did get a CT scan of her head and face without IV contrast. The patient was also given meclizine 25 mg and Ativan [address] scans of the patient's CT scans of the patient's head and maxillary facial bones revealed no acute fractures. Patient did develop abdominal pain secondary to menstrual cramps while she was here in the emergency department and states that her abdominal pain is 10/10. She was given Toradol 60 mg IM with some improvement of her pain. Patient was discharged home with a prescription for meclizine 25 mg 3 times a day as needed for dizziness. She was also advised to take Tylenol and ibuprofen for pain. She was given a school/work note. She was given printed and verbal instructions and discharged home. Admission/Observation Consideration of admission/observation: Escalation of care including admission/observation considered (Yes) Radiology Impression Discussion of test interpretation with radiology: I have reviewed the radiologist's reading. Radiologist Impression: CT head without contrast Comparison: CT/SR - CT HEAD/BRAIN WO IV CON - 06/09/24 02:49 EDT Findings: No intra-axial mass, midline shift, hydrocephalus, or acute hemorrhage. No significant atrophy-like change or white matter disease. The visualized paranasal sinuses and mastoid air cells are normal. The orbits are within normal limits. There is no acute fracture. IMPRESSION: 1. No acute intracranial findings. This document has been electronically signed by: Lefty Ling MD on 12/09/2024 20:09:37 CT maxillofacial without contrast Comparison: None Findings: No acute fractures. Temporomandibular joints are intact. Paranasal sinuses and mastoid air cells clear. Unremarkable orbital contents. Visualized intracranial contents are within normal limits. No foreign bodies. IMPRESSION: Unremarkable maxillofacial CT. This document has been electronically signed by: Lefty Ling MD on 12/09/2024 20:08:09 Independent Historian Clinical information obtained from an independent historian. History obtained from or confirmed by: Spouse Prescription Management I considered prescription management with: Other (Anti vertigo medication: Meclizine) Chronic Conditions Patient?s care impacted by: Diabetes and Other (Seizure disorder) Discharge Plan Discharge Clinical Impression: Vertigo, Closed head injury with brief loss of consciousness, Crampy pain associated with menses Patient Disposition: Home, Self-Care Instructions: Vertigo (ED), Head Injury (ED) Additional Instructions: The CT scans revealed no bleeding in the brain, skull fracture or facial fracture which is reassuring. Take meclizine 25 mg pills, 1 pill 3 times a day for the next 3 days for dizziness then as needed for dizziness. ?This medication will make you sleepy. ?Do not drive or work while taking this medication. Take ibuprofen 200 mg pills, 2 pills every 6 hours as needed for pain or fever. Take Tylenol (acetaminophen) 500 mg pills, 2 pills every 6 hours as needed for pain or fever. Follow-up with your doctor in 2 days. Please return to the emergency department if your symptoms get worse or if you develop any symptoms that are concerning to you. Follow-up with your doctor in 2 days. Please return to the emergency department if your symptoms get worse or if you develop any symptoms that are concerning to you. Please see the work/school note Prescriptions: New meclizine [Dramamine Less Drowsy] 25 mg tablet 25 mg PO TID PRN (Reason: dizziness) Qty: 20 0RF No Action ibuprofen 600 mg tablet 600 mg PO Q8H PRN (Reason: pain) Qty: 14 0RF acetaminophen 500 mg tablet 500 mg PO Q6H PRN (Reason: fever or pain) Qty: 20 0RF naproxen 500 mg tablet 500 mg PO BID PRN (Reason: pain) Qty: 14 0RF ondansetron 4 mg tablet,disintegrating 4 mg PO Q8H PRN (Reason: nausea and vomiting) Qty: 20 0RF meclizine 25 mg tablet 25 mg PO TID PRN (Reason: dizziness) Qty: 20 0RF metformin 500 mg tablet 500 mg PO BIDWM divalproex 500 mg tablet extended release 24 hr 500 mg PO BID Rx Instructions: with 250 mg; total 750 mg BID divalproex 250 mg tablet extended release 24 hr 250 mg PO BID Rx Instructions: with 500 mg; total 750 mg BID cyclobenzaprine 10 mg tablet 10 mg PO TID PRN (Reason: muscle spasm) Qty: 15 0RF ibuprofen 600 mg tablet 600 mg PO Q8H PRN (Reason: pain) Qty: 20 0RF lidocaine [Lidoderm] 5 % adhesive patch,medicated 1 patch topical DAILY Qty: 15 0RF Rx Instructions: leave on most painful area for up to 12 hrs acetaminophen [Tylenol] 325 mg tablet 325 mg PO QID PRN (Reason: pain) Qty: 28 0RF naproxen 500 mg tablet 500 mg PO BID 30 Days Qty: 60 3RF Stand Alone Forms: Work/School Release Print Language: Yoruba
[2024-12-09 16:46] VITALS: BP 148/72; PULSE 88; RESP 16; TEMP 36.9; O2SAT 98; BMI 33.5
[2024-12-09] MEDS: LORazepam 1 MG TABLET PO (16:57)
[2024-12-09] MEDS: Meclizine HCl 25 MG TABLET PO (16:57)
--- OUTSIDE RECORDS SUMMARY | 2024-12-09 17:34 | XMS_ITS | Encounter Summary ---
Author Organization [employer] Address 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 Role Phone Kath Venegas MD Primary Care Provide r Reason for Visit * Reason Onset Date Comments Appointment Request 01/24/2023 Encounter Details Date Type Department Care Team ([facility] st Contact Info) Description 01/24/2023 Telephone [facility] [address] [place] [address] Kath Venegas MD [address] [place], [place] [phone] Appointment Request Social History Tobacco Use Types Packs/Day Years Used Date Smoking Tobacco: Never Smokeless Tobacco: Never Alcohol Use Standard Drinks/Week Comments Never 0 (1 standard drink = 0.6 oz pur e alcohol) Comments No Sex and Gender Information Value Date Recorded Sex Assigned at Female 08/28/2022 10:35 AM EDT Legal Sex Female 10:35 AM EDT Gender Identity Female 08/28/2022 10:35 AM EDT Sexual Orientation Choose not to disclose 2021 10:35 AM EDT COVID-19 Exposure Response Date Recorded In the last 10 days, have yo u been in contact with someone who was confirmed or suspected to have Coronavirus/COVID-19? No / Unsure 12/29/2022 9:35 AM EST documented as of this encounter Miscellaneous Notes * Telephone Encounter - Oscar Bravoos - 01/24/2023 12:28 PM EDT Tc from pt requesting to [place]/s appt on 01/24/23 [place] [facility] [place]/04/2023 [place] Please contact pt at [phone] documented in this encounter Plan of Treatment Upcoming Encounters Date Type Department Care Team (Late st Contact Info) Description 12/11/2024 10:45 AM EST Office Visit [facility] [address] [place] [address] Kath Venegas MD [address] [place] [phone] documented as of this encounter Visit Diagnoses Not on filedocumented in this encounter Care Teams Lumber Cutter Relationship Specialty Start Date End Date Kath Venegas MD [address] [place] [phone] PCP - General Family Medicine 06/04/19 Zeny Mckenzie Health And Safety Advisor 03/03/24 documented as of this encounter
--- OUTSIDE RECORDS SUMMARY | 2024-12-09 17:34 | XMS_ITS | Encounter Summary ---
Author Organization [employer] Address [address] [facility] [address] [place] [address] Care Team Providers Care Environmental Safety Specialist Name Role Phone Kath Venegas MD Primary Care Provide r Reason for Visit * Reason Comments Med Refill Encounter Details Date Type Department Care Team ([facility] st Contact Info) Description 02/29/2024 Refill [facility] MEDICINE [address] [place], [place] [phone] Kath Venegas MD [address] [place] [phone] Seizure disorder (CMS/HCC); Heartburn Social History Tobacco Use Types Packs/Day Years Used Date Smoking Tobacco: Never Smokeless Tobacco: Never Alcohol Use Standard Drinks/Week Comments Never 0 (1 standard drink = 0.6 oz pur e alcohol) Housing Stability Answer Date Recorded What is your housing situation today? I have housing today, but I am worried about losing housing in the future 08/15/[address] you li ve. Do you have problems with any of the following? None of the above 08/15/2023 Food Insecurity Answer Date Recorded Within the past 12 months, y ou worried that your food would run out before you got money to buy more: Never True 08/15/2023 Within the past 12 months,th e food you bought just didn't last and you didn't have enough money to get more: Never True Transportation Answer Date Recorded In the past 12 months, has l ack of transportation kept you from medical appts, meetings, work or from getting things needed for daily living? No 08/15/2023 Utilities Answer Date Recorded In the past 12 months, has t he electric, gas, oil or water company threatened to shut off services in your home? No 08/15/2023 Depression Answer Date Recorded Patient Health Questionnaire-2 Score 0 02/21/2023 Comments No Sex and Gender Information Value Date Recorded Sex Assigned at Female 08/28/2022 10:35 AM EDT Legal Sex Female 10:35 AM EDT Gender Identity Female 08/28/2022 10:35 AM EDT Sexual Orientation Choose not to disclose 2021 10:35 AM EDT documented as of this encounter Plan of Treatment Upcoming Encounters Date Type Department Care Team (Late st Contact Info) Description 12/11/2024 10:45 AM EST Office Visit [facility] MEDICINE [address] [place] [address] [phone] Kath Venegas MD [address] [place] [address] documented as of this encounter Visit Diagnoses Diagnosis Seizure disorder (CMS/HCC) Unspecified epilepsy without mention of intractable epilepsy Heartburn documented in this encounter Care Teams Environmental Safety Specialist Relationship Specialty Start Date End Date Kath Venegas MD [address] [place] [address] [phone] PCP - General Family Medicine 06/04/19 Zeny Mckenzie Electrician Radio 03/03/24 documented as of this encounter
--- OUTSIDE RECORDS SUMMARY | 2024-12-09 17:34 | XMS_ITS | Encounter Summary ---
Author Organization [employer] Address [address] [facility] [address] [place] [address] Care Team Providers Care Tier Over Name Role Phone Kath Venegas MD Primary Care Provide r Reason for Visit * Reason Onset Date Comments Results 11/21/2024 Encounter Details Date Type Department Care Team ([facility] Contact Info) Description 11/21/2024 Telephone [facility] MEDICINE [address] [place] [address] Yris Patel RN [address] [place] [address] Results Social History Tobacco Use Types Packs/Day Years Used Date Smoking Tobacco: Never Passive Smoke Exposure: Never Smokeless Tobacco: Never Alcohol Use Standard Drinks/Week Comments Never 0 (1 standard drink = 0.6 oz pur e alcohol) Housing Stability Answer Date Recorded What is your housing situation today? I have jaswant meraz 06/12/[address] you li ve. Do you have problems with any of the following? None of the above 06/12/2024 Food Insecurity Answer Date Recorded Within the [...] Date Recorded Patient Health Questionnaire-2 Score 0 04/10/2024 Internet Access Answer Date Recorded Internet Access Q1 Yes 06/27/2024 Internet Access Q2 Not on file 06/27/2024 Comments No Sex and Gender Information Value Date Recorded Sex Assigned at Female 08/28/2022 10:35 AM EDT Legal Sex Female 10:35 AM EDT Gender Identity Female 08/28/2022 10:35 AM EDT Sexual Orientation Choose not to disclose 2021 10:35 AM EDT documented as of this encounter Miscellaneous Notes * Telephone Encounter - Yris Patel RN - 11/21/2024 3:04 PM EST TC placed to patient [phone] in regards to below message. Patient verbalized understanding. Patient to f/u PRN. ----- Message from Kath Carey MD sent at 11/21/2024 2:36 PM EST ----- Please let patient know I reviewed her MRI no brain pathology it was noticed some issues with her sinuses documented in this encounter Plan of Treatment Upcoming Encounters Date Type Department Care Team (Late st Contact Info) Description 12/11/2024 10:45 AM EST Office Visit [facility] MEDICINE [address] [place] [address] Kath Venegas MD [address] [place] [address] documented as of this encounter Visit Diagnoses Not on filedocumented in this encounter Care Teams Tier Over Relationship Specialty Start Date End Date Kath Venegas MD [address] [place] [phone] PCP - General Family Medicine 06/04/19 Zeny Mckenzie Grain Miller Helper 03/03/24 documented as of this encounter
--- OUTSIDE RECORDS SUMMARY | 2024-12-09 17:34 | XMS_ITS | Encounter Summary ---
Author Organization [employer] Address [address] [facility] [address] 7[address] [place] [address] Care Team Providers Care Windchill Administrator Name Role Phone Kath Venegas MD Primary Care Provide r Reason for Visit * Reason Comments Med Change Request Encounter Details Date Type Department Care Team ([facility] st Contact Info) Description 12/02/2024 Refill [facility] MEDICINE [address] [place] [address] Kath Venegas MD [address] [place] [address] Chronic migraine without aura without status migrainosus, not intractable Social History Tobacco Use Types Packs/Day Years Used Date Smoking Tobacco: Never Passive Smoke Exposure: Never Smokeless Tobacco: Never Alcohol Use Standard Drinks/Week Comments Never 0 (1 standard drink = 0.6 oz pur e alcohol) Housing Stability Answer Date Recorded What is your housing situation today? I have jaswantaisha meraz 06/12/[address] you [...] Description 12/11/2024 10:45 AM EST Office Visit [facility] MEDICINE [address] [place] [phone] Kath Venegas MD [address] [place] [phone] documented as of this encounter Visit Diagnoses Diagnosis Chronic migraine without aura without status migrainosus, not intractable documented in this encounter Care Teams Windchill Administrator Relationship Specialty Start Date End Date Kath Venegas MD [address] [place] [phone] PCP - General Family Medicine 06/04/19 Zeny Mckenzie Fruit Preserver 03/03/24 documented as of this encounter
--- OUTSIDE RECORDS SUMMARY | 2024-12-09 17:34 | XMS_ITS | Encounter Summary ---
Author Organization [employer] Address [address] [facility] [address] 7[address] [place] [address] Care Team Providers Care Electronics Maintenance Technician Name Role Phone Kath Venegas MD Primary Care Provide r Encounter Details Date Type Department Care Team ([facility] st Contact Info) Description 11/25/2024 10:20 AM EST Office Visit [facility] [address] [place] [address] [phone] Danna Berg MD [address] [place] [address] [phone] Viral upper respiratory infection (Primary Dx); History of shingles Social History Tobacco Use Types Packs/Day Years Used Date Smoking Tobacco: Never Passive Smoke Exposure: Never Smokeless Tobacco: Never Alcohol Use Standard Drinks/Week Comments Never 0 (1 standard drink = 0.6 oz pur e alcohol) Housing Stability Answer Date Recorded What is your housing situation today? I have jaswant mariya 06/12/[address] you li [...] AM EDT documented as of this encounter Last Filed Vital Signs Vital Sign Reading Time Taken Comments Blood Pressure 135/76 11/25/2024 9:14 AM EST Pulse 89 11/25/2024 9:14 AM EST Temperature 36.1 ??C (97 ??F) 11/25/2024 9:14 AM EST Respiratory Rate 20 11/25/2024 9:14 AM EST Oxygen Saturation 98% 11/25/2024 9:14 AM EST Inhaled Oxygen Concentration - - Weight 78.9 kg (174 lb) 11/25/2024 9:14 AM EST Height 152.4 cm (5') 11/25/2024 9:14 AM EST Body Mass Index 33.98 11/25/2024 9:14 AM EST documented in this encounter Progress Notes * Tito Alexander - 11/25/2024 10:20 AM EST Subjective Patient ID: Jerica León is a 34 y.o. female with PMHx of epileptic and nonepileptic seizures, Herpes(HSV), type 2 diabetes, chronic back pain, chronic migraine, and mood disorder who presents to walk in clinic for uri sxs. Seen in [facility] on 11/11/24 for URI. Strep positive, prescribed amoxicillin. Concerned about possible shingles and prescribed acyclovir. Today pt reports she woke up this morning and had congestion, headache and body aches. 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 No known sick contacts. She notes after recent strep she got better after completingabx. She reports suddenly this morning she felt worse. Pt had multiple concerns about previous herpes infection on her cheek and genitals. She is concerned of passing it on to her children. Review of Systems Constitutional: Negative for fever and unexpected weight change. HENT: Positive for congestion. Respiratory: Negative for shortness of breath. Cardiovascular: Negative for chest pain. Gastrointestinal: Negative for abdominal pain. Genitourinary: Negative for difficulty urinating. Musculoskeletal: Positive for myalgias. Neurological: Positive for headaches. Objective Visit Vitals BP 135/76 (BP Location: Left arm, Patient Position: Sitting, BP Cuff Size: Adult) Pulse 89 Temp 97 ??F (36.1 ??C) (Temporal) Resp 20 Body mass index is 33.98 kg/m??. Physical Exam Constitutional: Appearance: Normal appearance. HENT: Nose: Congestion and rhinorrhea present. Mouth/Throat: Mouth: Mucous membranes are moist. Pharynx: Oropharynx is clear. No oropharyngeal exudate or posterior oropharyngeal erythema. Cardiovascular: Rate and Rhythm: Normal rate and regular rhythm. Heart sounds: Normal heart sounds. Pulmonary: Effort: Pulmonary effort is normal. Breath sounds: Normal breath sounds. Musculoskeletal: Cervical back: Normal range of motion and neck supple. Lymphadenopathy: Cervical: No cervical adenopathy. Skin: Comments: No lesions on face. Neurological: General: No focal deficit present. Mental Status: She is alert. Psychiatric: Behavior: Behavior normal. Problem List Items Addressed This Visit Viral upper respiratory infection - Primary COVID and Flu negative. No evidence of respiratory distress. Symptoms mild. No evidence of dehydration. -Supportive care advised. -Isolation recommendations discussed. -Encouraged teas and honey for soothing and lots of fluids. -Declined work note, but will call if need presents. Relevant Orders POCT Rapid Covid-19 BinaxNOW (Completed) POCT Rapid Influenza A FRANCIS ID NOW (Completed) POCT Rapid Influenza B FRANCIS ID NOW (Completed) History of shingles Recurrent concerns of shingles and passing it on to her children. No exam findings consistent with acute outbreak. Pt has acyclovir at [facility] and encouraged to take if lesions appear. -No evidence of acute disease process. Suspect acute viral URI separate from previous strep infection that resolved prior to new symptom onset. Symptoms currently mild. -Recommended supportive care. -ER precautions discussed. -Seek medical attention for worsening symptoms. Tito Callahan, am serving as a scribe to document services personally performed by Dr. Gaffney, based on the patient's response to questions by provider and providers statements to me. documented in this encounter Miscellaneous Notes * Assessment & Plan Note - Tito Alexander - 11/25/2024 9:26 AM ESTAssociated Problem(s): History of shingles Recurrent concerns of shingles and passing it on to her children. No exam findings consistent with acute outbreak. Pt has acyclovir at [facility] and encouraged to take if lesions appear. * Assessment & Plan Note - Tito Alexander - 11/25/2024 9:15 AM ESTAssociated Problem(s): Viral upper respiratory infection COVID and Flu negative. No evidence of respiratory distress. Symptoms mild. No evidence of dehydration. -Supportive care advised. -Isolation recommendations discussed. -Encouraged teas and honey for soothing and lots of fluids. -Declined work note, but will call if need presents. documented in this encounter Plan of Treatment Upcoming Encounters Date Type Department Care Team (Late st Contact Info) Description 12/11/2024 10:45 AM EST Office Visit [facility] MEDICINE [address] [place] [address] Kath Venegas MD [address] [place] [address] documented as of this encounter Procedures Procedure Name Priority Date/Time Associated Diagnosis Comments POCT INFLUENZA B (ID NOW RAPID MOLECULAR) Routine 11/25/2024 9:22 AM EST Viral upper respiratory infection POCT INFLUENZA A (ID NOW RAPID MOLECULAR) Routine 11/25/2024 9:22 AM EST Viral upper respiratory infection POCT RAPID COVID ANTIGEN Routine 11/25/2024 9:22 AM EST Viral upper respiratory infection documented in this encounter Results * POCT Rapid Influenza B FRANCIS ID NOW (11/25/2024 9:22 AM EST) Influenza B Negative Negative, Indeterminate [facility] QC Media Lot # [id number] [facility] Lot# Expiration Date 8, [facility] Swab 11/25/2024 9:22 AM EST Danna Berg MD POINT OF CARE TEST ENTER/E DIT ORDERABLES Final Result Performing Organization Address [facility]/ZIP Co de Phone Number [facility] [address] [place] [phone] * POCT Rapid Influenza A FRANCIS ID NOW (11/25/2024 9:22 AM EST) Influenza A Negative Negative, Indeterminate [facility] QC Media Lot # [id number] [facility] Lot# Expiration Date 936 [facility] Swab 11/25/2024 9:22 AM EST Danna Berg MD POINT OF CARE TEST ENTER/E DIT ORDERABLES Final Result Performing Organization Address City/[facility]/ZIP Co de Phone Number [facility] [address] [place] [phone] * POCT Rapid Covid-19 BinaxNOW (11/25/2024 9:22 AM EST) Rapid COVID Ag Negative [facility] QC Media Lot # [id number] [facility] Lot# Expiration Date , [facility] Swab 11/25/2024 9:22 AM EST Danna Berg MD POINT OF CARE TEST ENTER/E DIT ORDERABLES Final Result [facility] [address] [place] [phone] documented in this encounter Visit Diagnoses Diagnosis Viral upper respiratory infection- Primary Acute upper respiratory infections of unspecified site History of shingles documented in this encounter Care Teams Electronics Maintenance Technician Relationship Specialty Start Date End Date Kath Venegas MD [address] [place] [phone] PCP - General Family Medicine 06/04/19 Zeny Mckenzie Telecommunications Project Manager 03/03/24 documented as of this encounter
--- OUTSIDE RECORDS SUMMARY | 2024-12-09 17:34 | XMS_ITS | Encounter Summary ---
Author Organization [employer] Address [address] [facility] [address] [place] [address] Care Team Providers Care Pin Drafter Name Role Phone Kath Venegas MD Primary Care Provide r Reason for Visit * Reason Comments Cough Sore Throat Encounter Details Date Type Department Care Team ([facility] st Contact Info) Description 11/11/2024 10:20 AM EST Office Visit [facility] [address] [place] [address] [phone] Danna Berg MD [address] [place] [address] [phone] Strep pharyngitis (Primary Dx); Cough in adult patient; History of shingles Social History Tobacco Use [...] Sign Reading Time Taken Comments Blood Pressure 140/75 11/11/2024 10:37 AM EST Pulse 79 11/11/2024 10:37 AM EST Temperature 36.6 ??C (97.9 ??F) 11/11/2024 10:[address] Respiratory Rate 18 11/11/2024 10:37 AM EST Oxygen Saturation 99% 11/11/2024 10:37 AM EST Inhaled Oxygen Concentration - - Weight 77.1 kg (170 lb) 11/11/2024 10:37 AM EST Height - - Body Mass Index 33.2 11/10/2024 10:41 AM EST documented in this encounter Progress Notes * Tana Snyder MA - 11/11/2024 10:20 AM EST Subjective History was provided by the patient. Jerica León is a 34 y.o. female who presents for evaluation of symptoms of a URI. Symptoms include sore throat and redness of the throat. Onset of symptoms was 1 day ago, unchanged since that time. Associated negative symptoms include exudate, cough and fever. Evaluation to date: none. 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 Pt reports her throat feels sore and her eye is also swollen. Pt notes she has herpes and is nervous her symptoms are related to an outbrake. Objective Vitals: 11/11/24 1037 BP: 140/75 BP Location: Left arm Patient Position: Sitting BP Cuff Size: Adult Pulse: 79 Resp: 18 Temp: 97.9 ??F (36.6 ??C) TempSrc: Oral SpO2: 99% Weight: 170 lb (77.1 kg) Physical Exam Constitutional: Appearance: Normal appearance. HENT: Mouth/Throat: Pharynx: Uvula midline. Posterior oropharyngeal erythema present. Eyes: Comments: No swelling or vesicles abnormalities detected. Eye exam was normal. Cardiovascular: Rate and Rhythm: Normal rate and regular rhythm. Heart sounds: Normal heart sounds. Pulmonary: Effort: Pulmonary effort is normal. Breath sounds: Normal breath sounds. Abdominal: Tenderness: There is no abdominal tenderness. Musculoskeletal: Cervical back: Normal range of motion and neck supple. Neurological: General: No focal deficit present. Mental Status: She is alert. Psychiatric: Behavior: Behavior normal. Office Visit on 11/11/2024 Component Date Value Ref Range Status Rapid Strep A Screen 11/11/2024 Positive (A) Negative, None Detected Final Influenza B 11/11/2024 Negative Negative, Indeterminate Final Rapid COVID Ag 11/11/2024 Negative Final Influenza A 11/11/2024 Negative Negative, Indeterminate Final Office Visit on 11/10/2024 Component Date Value Ref Range Status Glucose Blood, POC 11/10/2024 151 60 - 200 mg/dL Final QC Media Lot # 11/10/2024 [id number] Final Lot# Expiration Date 11/10/2024 [id number] Final Hemoglobin A1C 11/10/2024 6.4 (A) 4.0 - 6.0 % Final QC Media Lot # 11/10/2024 [id number] Final Lot# Expiration Date 11/10/2024 [id number] Final Problem List Items Addressed This Visit Cough in adult patient Relevant Orders POCT Rapid Strep A FRANCIS ID NOW (Completed) POCT Rapid Influenza B FRANCIS ID NOW (Completed) POCT Rapid Covid-19 BinaxNOW (Completed) POCT Rapid Influenza A FRANCIS ID NOW (Completed) Strep pharyngitis - Primary - Prescribed amoxicillin (Amoxil) 500 MG capsule 11/11/24 - ER precautions discussed 11/11/24 - Seek medical attention for worsening symptoms 11/11/24 Relevant Medications amoxicillin (Amoxil) 500 MG capsule History of shingles - Prescribed acyclovir (Zovirax) 800 MG tablet 11/11/24 - ER precautions discussed 11/11/24 - Seek medical attention for worsening symptoms 11/11/24 Relevant Medications acyclovir (Zovirax) 800 MG tablet -No evidence of respiratory distress. Symptoms mild. -No evidence of dehydration. -Supportive care advised. -Isolation recommendations discussed. -ER precautions discussed. -Seek medical attention for worsening symptoms. I, Tana Snyder, am serving as a scribe to document services personally performed by Dr. Danna Berg, based on the patient's response to questions by provider and providers statements to me. documented in this encounter Miscellaneous Notes * Assessment & Plan Note - Tana Snyder MA - 11/11/2024 11:02 AM EST Associated Problem(s): History of shingles - Prescribed acyclovir (Zovirax) 800 MG tablet 11/11/24 - ER precautions discussed 11/11/24 - Seek medical attention for worsening symptoms 11/11/24 * Assessment & Plan Note - Tana Snyder MA - 11/11/2024 11:02 AM EST Associated Problem(s): Strep pharyngitis - Prescribed amoxicillin (Amoxil) 500 MG capsule 11/11/24 - ER precautions discussed 11/11/24 - Seek medical attention for worsening symptoms 11/11/24 documented in this encounter Plan of Treatment Upcoming Encounters Date Type Department Care Team (Late st Contact Info) Description 12/11/2024 10:45 AM EST Office Visit [facility] MEDICINE [address] [place] [address] Kath Venegas MD [address] [place] [address] documented as of this encounter Procedures Procedure Name Priority Date/Time Associated Diagnosis Comments POCT INFLUENZA B (ID NOW RAPID MOLECULAR) Routine 11/11/2024 10:48 AM EST Cough in adult patient POCT INFLUENZA A (ID NOW RAPID MOLECULAR) Routine 11/11/2024 10:48 AM EST Cough in adult patient POC FRANCIS ID NOW STREP A Routine 11/11/2024 10:42 AM EST Cough in adult patient POCT RAPID COVID ANTIGEN Routine 11/11/2024 10:42 AM EST Cough in adult patient documented in this encounter Results * POCT Rapid Influenza A FRANCIS ID NOW (11/11/2024 10:48 AM EST) [facility] Influenza A Negative Negative, Indeterminate [facility] Swab 11/11/2024 10:4 8 AM EST Danna Berg MD POINT OF CARE TEST ENTER/E DIT ORDERABLES Final Result Performing Organization Address [facility] Co de Phone Number [facility] [address] [place] [phone] * POCT Rapid Influenza B FRANCIS ID NOW (11/11/2024 10:48 AM EST) [facility] Influenza B Negative Negative, Indeterminate [facility] Swab 11/11/2024 10:4 8 AM EST Danna Berg MD POINT OF CARE TEST ENTER/E DIT ORDERABLES Final Result Performing Organization Address [facility] Co de Phone Number [facility] [address] [place] [phone] * POCT Rapid Covid-19 BinaxNOW (11/11/2024 10:42 AM EST) Rapid COVID Ag Negative Swab 11/11/2024 10:4 2 AM EST us Danna Berg MD POINT OF CARE TEST ENTER/E DIT ORDERABLES Final Result * (ABNORMAL) POCT Rapid Strep A FRANCIS ID NOW (11/11/2024 10:42 AM EST) Rapid Strep A Screen Positive( A) Negative, None Detected Swab 11/11/2024 10:4 2 AM EST us Danna Berg MD POINT OF CARE TEST ENTER/E DIT ORDERABLES Final Result documented in this encounter Visit Diagnoses Diagnosis Strep pharyngitis- Primary Cough in adult patient History of shingles documented in this encounter Care Teams Pin Drafter Relationship Specialty Start Date End Date Kath Venegas MD [address] [place] [phone] PCP - General Family Medicine 06/04/19 Zeny Mckenzie Generation Technician 03/03/24 documented as of this encounter
--- OUTSIDE RECORDS SUMMARY | 2024-12-09 17:34 | XMS_ITS | Encounter Summary ---
Author Organization [employer] Address [address] [place] [address] Care Team Providers Care Edge Kitter Name Role Phone Kath Venegas MD Primary Care Provide r Encounter Details Date Type Department Care Team ([facility] st Contact Info) Description 11/11/2024 Telephone [facility] [address] [place] [address] Kath Venegas MD [address] [place], [place] [phone] Social History Tobacco Use Types Packs/Day Years [...] Description 12/11/2024 10:45 AM EST Office Visit [facility] [address] [place], [place] [phone] Kath Venegas MD [address] [place] [address] documented as of this encounter Visit Diagnoses Not on filedocumented in this encounter Care Teams Edge Kitter Relationship Specialty Start Date End Date Kath Venegas MD [address] [place], [place] [phone] PCP - General Family Medicine 06/04/19 Zeny Mckenzie Associate Artistic Director 03/03/24 documented as of this encounter
--- OUTSIDE RECORDS SUMMARY | 2024-12-09 17:34 | XMS_ITS | Encounter Summary ---
Author Organization [employer] Address [address] [facility] [address] [place] [address] Care Team Providers Care Boot Liner Maker Name Role Phone Kath Venegas MD Primary Care Provide r Reason for Referral * Consultation (Routine) - Closed Specialty Diagnoses / Procedures Referred By Yoli talbot Referred To Contact Otolaryngology Diagnoses Dizziness Kath Venegas MD [address] [place] [address] Phone: tel: fax: [facility] [address] [place] [address] Phone: tel: fax: Referral ID Status Reason Start Date Expiration Date V isits Requested Visits Authorized [id number] Closed Specialty Services Required 11/11/2024 11/11/2025 6 6 * Imaging (Routine) - Closed Specialty Diagnoses / Procedures Referred By Yoli t Referred To Contact Radiology Diagnoses Dizziness Chronic migraine without aura without status migrainosus, not intractable Procedures MR Brain w/o Contrast Kath Venegas MD [address] [place] [address] Phone: tel: fax: [facility] [address] [place] [address] Phone: tel: fax: Referral ID Status Reason Start Date Expiration Date Visits Re quested Visits Authorized [id number] Closed 11/10/2024 11/10/2025 1 1 Encounter Details Date Type Department Care Team (Late st Contact Info) Description 11/10/2024 10:45 AM EST Office Visit [facility] [address] [place] [address] Kath Venegas MD [address] [place] [address] Dizziness (Primary Dx); Type 2 diabetes mellitus with hyperglycemia, without long-term current use of insulin (CMS/HCC); Chronic migraine without aura without status migrainosus, [...] Sign Reading Time Taken Comments Blood Pressure 118/70 11/10/2024 10:41 AM EST Pulse 88 11/10/2024 10:41 AM EST Temperature 36.4 ??C (97.5 ??F) 11/10/2024 10:[address] Respiratory Rate 18 11/10/2024 10:41 AM EST Oxygen Saturation - - Inhaled Oxygen Concentration - - Weight 77.6 kg (171 lb 2 oz) 11/10/2024 10:41 AM EST Height 152.4 cm (5') 11/10/2024 10:41 AM EST Body Mass Index 33.42 11/10/2024 10:41 AM EST documented in this encounter Progress Notes * Kath Carey MD - 11/10/2024 10:45 AM EST SUBJECTIVE: Jerica León is a 34 y.o. year old female who presents for Follow up . Acute Concerns: Patient reports she has being having really bad headaches, reports one side of the head sometimes is her entire heard, reports light and noise intolerance also reports dizziness and nausea, she has being going to the emergency room for this Social History Social History Narrative Not on file Patient Active Problem List Diagnosis Pharyngitis Herpes simplex of female genitalia Vaginal irritation Steatosis of liver Reactive airway disease Partial epilepsy with impairment of consciousness (CMS/HCC) Pain in wrist Mood disorder (CMS/HCC) Menometrorrhagia Irregular periods Dizziness Seizure disorder (CMS/HCC) Acute low back pain Visit for preventive health examination Oligomenorrhea Type 2 diabetes mellitus with hyperglycemia, without long-term current use of insulin (CMS/HCC) Hospital discharge follow-up Chronic bilateral low back pain with bilateral sciatica Heartburn Seasonal allergies Dissociative convulsions Dyspareunia in female Bug bites Genital lesion, female Sore throat Irritant contact dermatitis Abdominal pain Chronic allergic rhinitis Class 1 obesity Hx of cholecystectomy Chronic migraine without aura without status migrainosus, not intractable No family history on file. Review of Systems Constitutional: Negative. HENT: Negative. Respiratory: Negative. Cardiovascular: Negative. Neurological: Positive for dizziness and headaches. Negative for tremors, seizures, syncope, facialasymmetry, speech difficulty, weakness, light- headedness and numbness. OBJECTIVE: Vitals: 11/10/24 1041 BP: 118/70 BP Location: Left arm Patient Position: Sitting BP Cuff Size: Adult Pulse: 88 Resp: 18 Temp: 97.5 ??F (36.4 ??C) TempSrc: Oral Weight: 171 lb 2 oz (77.6 kg) Height: 5' (1.524 m) Physical Exam Constitutional: Appearance: Normal appearance. Cardiovascular: Rate and Rhythm: Normal rate and regular rhythm. Pulmonary: Effort: Pulmonary effort is normal. Breath sounds: Normal breath sounds. Abdominal: General: Abdomen is flat. Palpations: Abdomen is soft. Musculoskeletal: Right lower leg: No edema. Left lower leg: No edema. Neurological: General: No focal deficit present. Mental Status: She is alert. Mental status is at baseline. Follow Up: Follow up for patient already has an appointment . Current Outpatient Medications on File Prior to Visit Medication Sig Dispense Refill acyclovir (Zovirax) 5 % ointment Apply thin layer to affected area five times daily for 7 days 5 g 0 divalproex (Depakote ER) 250 MG 24 hr tablet TAKE 1 TABLET (250 MG) BY MOUTH 2 TIMES DAILY. DO NOT CRUSH, CHEW, OR SPLIT. 180 tablet 1 divalproex (Depakote ER) 500 MG 24 hr tablet Take 1 tablet by mouth twice daily with 250mg dose. Donot crush, chew, or split. 180 tablet 3 ferrous sulfate 325 (65 Fe) MG tablet TAKE 1 TABLET BY MOUTH EVERY OTHER DAY 45 tablet 1 FreeStyle lancets 1 each by Other route 2 times daily. 50 each 11 FREESTYLE LITE test strip USE 1 STRIP IN AM TO CHECK BLOOD SUGAR ONCE A DAY 100 strip 3 metFORMIN (Glucophage) 500 MG tablet TAKE 1 TABLET BY MOUTH WITH BREAKFAST AND EVENING MEALS 180 tablet 1 Symbicort 160-4.5 MCG/ACT inhaler INHALE 2 PUFFS BY MOUTH TIMES A DAY FOR 30 DAYS valACYclovir (Valtrex) 1 g tablet Take 1 tablet (1,000 mg) by mouth Once per day. 30 tablet 11 Ventolin HFA 108 (90 Base) MCG/ACT inhaler INHALE 2 PUFFS BY MOUTH EVERY 4 TO 6 HOURS NEEDED FORWHEEZE/SHORTNESS OF BREATH 18 g 1 norethindrone (Ortho Micronor) 0.35 MG tablet Take 1 tablet (0.35 mg) by mouth Once per day for 28 days. 28 tablet 11 No current facility-administered medications on file prior to visit. Problem List Items Addressed This Visit Type 2 diabetes mellitus with hyperglycemia, without long-term current use of insulin ([facility]) Diabetes is: controlled - Lab Results Component Value Date HGBA1C 6.4 (A) 11/10/2024 HGBA1C 6.1 (A) 07/14/2024 HGBA1C 5.7 02/08/2024 - Lab Results Component Value Date MICROALBUR 25.0 10/08/2023 CREATININE 0.55 10/24/2024 -Changes: none - Diabetic eye exam:pending - Diabetic foot exam:pending - Continue lifestyle modifications - Continue current medications - Follow up: 3 months Relevant Orders POCT Glucose (Completed) POCT HGB A1C (Completed) Dizziness - Primary Relevant Orders MR Brain w/o Contrast Referral to ENT Chronic migraine without aura without status migrainosus, not intractable I advise to avoid migraine triggers like red wine, chocolate, cheese, strong perfumes I will start her on amitriptyline 10mg at bed time and sumatriptan 25mg PRN Relevant Medications amitriptyline (Elavil) 10 MG tablet SUMAtriptan (Imitrex) 25 MG tablet Other Relevant Orders MR Brain w/o Contrast documented in this encounter Miscellaneous Notes * Assessment & Plan Note - Kath Carey MD - 11/10/2024 2:35 PM EST Associated Problem(s): Chronic migraine without aura without status migrainosus, not intractable I advise to avoid migraine triggers like red wine, chocolate, cheese, strong perfumes I will start her on amitriptyline 10mg at bed time and sumatriptan 25mg PRN * Assessment & Plan Note - Kath Carey MD - 11/10/2024 2:34 PM EST Associated Problem(s): Type 2 diabetes mellitus with hyperglycemia, without long-term current use of insulin ([facility]) Diabetes is: controlled - Lab Results Component Value Date HGBA1C 6.4 (A) 11/10/2024 HGBA1C 6.1 (A) 07/14/2024 HGBA1C 5.7 02/08/2024 - Lab Results Component Value Date MICROALBUR 25.0 10/08/2023 CREATININE 0.55 10/24/2024 -Changes: none - Diabetic eye exam:pending - Diabetic foot exam:pending - Continue lifestyle modifications - Continue current medications - Follow up: 3 months documented in this encounter Plan of Treatment Upcoming Encounters Date Type Department Care Team (Late st Contact Info) Description 12/11/2024 10:45 AM EST Office Visit [facility] [address] [place], [place] [phone] Kath Venegas MD [address] [place] [address] Scheduled Referrals Name Type Priority Associated Diagnoses Orde r Schedule Referral to ENT Outpatient Referral Routine Dizziness Expected: 11/10/2024 (Approximate), Expires: 11/10/2025 documented as of this encounter Procedures Procedure Name Priority Date/Time Associated Diagnosis Comments MR BRAIN WO CONTRAST Routine 11/17/2024 10:37 AM EST Dizziness Chronic migraine without aura without status migrainosus, not intractable POCT GLYCATED HEMOGLOBIN, TOTAL Routine 11/10/2024 10:47 AM EST Type 2 diabetes mellitus with hyperglycemia, without long-term current use of insulin ([facility]) POCT GLUCOSE Routine 11/10/2024 10:46 AM EST Type 2 diabetes mellitus with hyperglycemia, without long-term current use of insulin ([facility]) documented in this encounter Results * MR Brain w/o Contrast (11/17/2024 10:37 AM EST) Anatomical Region Laterality Modality Brain Magnetic Resonan ce 11/17/2024 10:3 7 AM EST Narrative 11/17/2024 10:39 AM EST ? [facility] ?[address] ?[place] [address] ? Magnetic Resonance Report ? Signed ? Patient: Young León,Jerica ?MR#: [id number] ?? [id number] ? : 1990 ?Acct:[id number] ? Age/Sex: 34 / F ?ADM Date: 11/15/24 ? Loc: HO.MRI ? Attending Dr: Kath Carey MD ? Ordering Physician: Kath Venegas MD ?? Date of Service: 11/15/24 ?? Procedure(s): MR head/brain wo con ?? Accession Number(s): [id number] ? cc: Kath Venegas MD ? CLINICAL HISTORY: persistent dizzines and migraines ? MR Brain without gadolinium ? Comparison: None ? Findings: ?? No restricted diffusion. No intracranial mass or hemorrhage. ?? No midline shift. No hydrocephalus. ?? Vascular flow voids are intact. ? Orbital contents are unremarkable. ?? Left maxillary sinus polyp/retention cyst. ?? No focal bone lesion. ? Mildly prominent nasopharyngeal tonsil/adenoid may be reactive or ?? inflammatory/infectious in nature. Correlate clinically. ? IMPRESSION: ?? Unremarkable brain. No acute infarct. ?? Mildly prominent nasopharyngeal tonsil/adenoid may be reactive or ?? inflammatory/infectious in nature. Correlate clinically. ? This document has been electronically signed by: Cynthia Renteria MD on ?? 11/17/2024 10:37:29 ? Dictated By: ?Cynthia Renteria MD ? Signed By: ?<Electronically signed by Cynthia Renteria MD in OV> ? 11/17/24 1038 ? DD/ 1037 ? TD/TT: 11/17/24 1037 ? Military Logistics Specialist: ? Procedure Note Donnie Sun - 11/17/[address] [address] Magnetic Resonance Report Signed Patient: YoungJerica Tam#: [id number] : 1990Acct:[id number] Age/Sex: 34 / FADM Date: 11/15/24 Loc: HO.MRI Attending Dr: Kath Carey MD Ordering Physician: Kath Venegas MD Date of Service: 11/15/24 Procedure(s): MR head/brain wo con Accession Number(s): [id number] cc: Kath Venegas MD CLINICAL HISTORY: persistent dizzines and migraines MR Brain without gadolinium Comparison: None Findings: No restricted diffusion. No intracranial mass or hemorrhage. No midline shift. No hydrocephalus. Vascular flow voids are intact. Orbital contents are unremarkable. Left maxillary sinus polyp/retention cyst. No focal bone lesion. Mildly prominent nasopharyngeal tonsil/adenoid may be reactive or inflammatory/infectious in nature. Correlate clinically. IMPRESSION: Unremarkable brain. No acute infarct. Mildly prominent nasopharyngeal tonsil/adenoid may be reactive or inflammatory/infectious in nature. Correlate clinically. This document has been electronically signed by: Cynthia Renteria MD on 11/17/2024 10:37:29 Dictated By: Cynthia Renteria MD Signed By: <Electronically signed by Cynthia Renteria MD in OV> 11/17/24 1038 DD/ 1037 TD/TT: 11/17/24 1037 Military Logistics Specialist: Kath Carey MD IMG MRI PROCEDURES Ed ited Result - Final * (ABNORMAL) POCT HGB A1C (11/10/2024 10:47 AM EST) Hemoglobin A1C 6.4(A) 4.0 - 6.0 % QC Media Lot # [id number] Lot# Expiration Date ,026 Blood 11/10/2024 10:4 7 AM EST Kath Carey MD POINT OF CARE TEST EN TER/EDIT ORDERABLES Final Result * POCT Glucose (11/10/2024 10:46 AM EST) Glucose Blood, POC 151 60 - 200 mg/dL QC Media Lot # [id number] Lot# Expiration Date [id number] Blood Capillary blood specimen / Unknown 11/10/2024 10:46 AM EST Kath Carey MD POINT OF CARE TEST EN TER/EDIT ORDERABLES Final Result documented in this encounter Visit Diagnoses Diagnosis Dizziness- Primary Dizziness and giddiness Type 2 diabetes mellitus with hyperglycemia, without long-term current use of insulin ([facility]) Chronic migraine without aura without status migrainosus, not intractable documented in this encounter Care Teams Boot Liner Maker Relationship Specialty Start Date End Date Kath Venegas MD [address] [place] [address] PCP - General Family Medicine 06/04/19 Zeny Mckenzie Certified Financial Planner 03/03/24 documented as of this encounter
--- OUTSIDE RECORDS SUMMARY | 2024-12-09 17:34 | XMS_ITS | Encounter Summary ---
Author Organization [employer] Address [address] [place] [address] Care Team Providers Care Marketing Communications Associate Name Role Phone Kath Venegas MD Primary Care Provide r Reason for Visit * Reason Comments Pre-visit Planning SDOH screening negat stacy and tobacco screening negative Encounter Details Date Type Department Care Team ([facility] st Contact Info) Description 11/28/2024 Patient Outreach [facility] [address] [place] [address] Kath Venegas MD [address] [place], [place] [phone] Pre-visit Planning (SDOH screening negative and tobacco screening negative) Social History Tobacco Use Types Packs/Day Years [...] AM EDT documented as of this encounter Progress Notes * Didi Jordyn - 11/28/2024 8:57 AM EST CC Didi placed successful outbound call to patient for pre-visit planning. Patient name and confirmed. Patient confirms appt date and time, and has transportation. Biggest concern for appointment at this time is none Patient advised to bring to appointment a photo id and insurance card. Appropriate screenings completed in anticipation of appointment. documented in this encounter Plan of Treatment Upcoming Encounters Date Type Department Care Team (Late st Contact Info) Description 12/11/2024 10:45 AM EST Office Visit [facility] [address] [place] [phone] Kath Venegas MD [address] [place] [address] documented as of this encounter Visit Diagnoses Not on filedocumented in this encounter Care Teams Marketing Communications Associate Relationship Specialty Start Date End Date Kath Venegas MD [address] [place] [phone] PCP - General Family Medicine 06/04/19 Zeny Mckenzie Parts Counter Salesperson 03/03/24 documented as of this encounter
--- OUTSIDE RECORDS SUMMARY | 2024-12-09 17:34 | XMS_ITS | Encounter Summary ---
Author Organization [employer] Address [address] [place] [address] Care Team Providers Care Operator Bearer Systems Name Role Phone Kath Venegas MD Primary Care Provide r Encounter Details Date Type Department Care Team (Latest Contact Info) Description 11/10/2024 Travel Social History Tobacco Use Types Packs/Day Years [...] Description 12/11/2024 10:45 AM EST Office Visit [facility] [address] [place] [address] Kath Venegas MD [address] [place] [address] documented as of this encounter Visit Diagnoses Not on filedocumented in this encounter Care Teams Operator Bearer Systems Relationship Specialty Start Date End Date Kath Venegas MD [address] [place], [place] [phone] PCP - General Family Medicine 06/04/19 Zeny Mckenzie Model Maker Plaster 03/03/24 documented as of this encounter
--- OUTSIDE RECORDS SUMMARY | 2024-12-09 17:34 | XMS_ITS | Clinical Summary ---
Author Organization [employer] Address [address] [facility] [address] [place] [address] Care Team Providers Care Senior Chemical Engineer Name Role Phone Kath Venegas MD Primary Care Provide r Allergies Active Allergy Reactions Criticality Noted Date Comments Clindamycin Anaphylaxis High 09/10/2019 Iodinated Contrast Media High 11/06/2022 Other Reaction(s): Facial Swelling Latex Itching 12/24/2023 Other Reaction(s): rash & Blisters Medications * This document contains information received from the source organization and may not represent a complete record from that organization. FreeStyle lancetsIndicati ons:Type 2 diabetes mellitus without complication, without long-term current use of insulin ([facility]) 1 each by Other route 2 times daily. 50 each 11 06/22/20 23 Active Ventolin HFA 108 (90 Base) MCG/ACT inhalerIndicati ons:Reactive airway disease without complication, unspecified asthma severity, unspecified whether persistent INHALE 2 PUFFS BY MOUTH EVERY 4 TO 6 HOURS NEEDED FOR WHEEZE/SHORTN ESS OF BREATH 18 g 1 07/09/20 23 Active divalproex (Depakote ER) 500 MG 24 hr tabletIndicatio ns:Seizure disorder ([facility]) Take 1 tablet by mouth twice daily with 250mg dose. Do not crush, chew, or split. 180 tablet 3 12/24/19 24 Active norethindrone (Ortho Micronor) 0.35 MG tablet Take 1 tablet (0.35 mg) by mouth Once per day for 28 days. 28 tablet 11 04/01/20 24 Active valACYclovir (Valtrex) 1 g tablet Take 1 tablet (1,000 mg) by mouth Once per day. 30 tablet 11 04/01/20 24 025 Active Symbicort 160-4.5 MCG/ACT inhaler INHALE 2 PUFFS BY MOUTH TIMES A DAY FOR 30 DAYS 03/26/20 24 Active divalproex (Depakote ER) 250 MG 24 hr tabletIndicatio ns:Seizure disorder (CMS/HCC) TAKE 1 TABLET (250 MG) BY MOUTH 2 TIMES DAILY. DO NOT CRUSH, CHEW, OR SPLIT. 180 tablet 1 05/12/20 24 025 Active FREESTYLE LITE test stripIndication s:Type 2 diabetes mellitus without complication, without long-term current use of insulin ([facility]) USE 1 STRIP IN AM TO CHECK BLOOD SUGAR ONCE A DAY 100 strip 3 09/16/20 24 Active ferrous sulfate 325 (65 Fe) MG tablet TAKE 1 TABLET BY MOUTH EVERY OTHER DAY 45 tablet 1 09/22/20 24 Active metFORMIN (Glucophage) 500 MG tabletIndicatio ns:Type 2 diabetes mellitus with hyperglycemia, without long-term current use of insulin ([facility]) TAKE 1 TABLET BY MOUTH WITH BREAKFAST AND EVENING MEALS 180 tablet 1 10/07/20 24 Active acyclovir (Zovirax) 5 % ointmentIndicat ions:HSV infection Apply thin layer to affected area five times daily for 7 days 5 g 10/17/20 24 025 Active SUMAtriptan (Imitrex) 25 MG tabletIndicatio ns:Chronic migraine without aura without status migrainosus, not intractable Take 1 tablet (25 mg) by mouth 1 (one) time if needed for migraine for up to 9 doses. May repeat dose once in 2 hours if no relief. Do not exceed 2 doses in 24 hours. 9 tablet 11/10/19 25 Active amoxicillin (Amoxil) 500 MG capsuleIndicati ons:Strep pharyngitis Take 1 tab po bid for 10 days 20 capsule 11/11/19 25 Active acyclovir (Zovirax) 800 MG tabletIndicatio ns:Herpes Simplex Infection Take 3 tabs a day for 2 days 6 tablet 1 11/11/19 25 Active amitriptyline (Elavil) 10 MG tabletIndicatio ns:Chronic migraine without aura without status migrainosus, not intractable TAKE 1 TABLET BY MOUTH EVERYDAY AT BEDTIME 90 tablet 12/04/19 Active amitriptyline (Elavil) 10 MG tabletIndicatio ns:Chronic migraine without aura without status migrainosus, not intractable Take 1 tablet (10 mg) by mouth at bedtime. 30 tablet 1 11/10/19 25 025 Discontinued Active Problems Problem Noted Date Diagnosed Date Viral upper respiratory infection 11/25/2024 Assessment & Plan (11/25/2024 9:31 AM EST): COVID and Flu negative. No evidence of respiratory distress. Symptoms mild. No evidence of dehydration. -Supportive care advised. -Isolation recommendations discussed. -Encouraged teas and honey for soothing and lots of fluids. -Declined work note, but will call if need presents. History of shingles 11/11/2024 Overview (11/11/2024): - Prescribed acyclovir (Zovirax) 800 MG tablet 11/11/24 - ER precautions discussed 11/11/24 - Seek medical attention for worsening symptoms 11/11/24 Assessment & Plan (11/25/2024 9:26 AM EST): Recurrent concerns of shingles and passing it on to her children. No exam findings consistent with acute outbreak. Pt has acyclovir at ome and encouraged to take if lesions appear. Assessment & Plan (11/11/2024 11:24 AM EST): - Prescribed acyclovir (Zovirax) 800 MG tablet 11/11/24 - ER precautions discussed 11/11/24 - Seek medical attention for worsening symptoms 11/11/24 Cough in adult patient 11/11/2024 Strep pharyngitis 11/11/2024 Overview (11/11/2024): - Prescribed amoxicillin (Amoxil) 500 MG capsule 11/11/24 - ER precautions discussed 11/11/24 - Seek medical attention for worsening symptoms 11/11/24 Assessment & Plan (11/11/2024 11:25 AM EST): - Prescribed amoxicillin (Amoxil) 500 MG capsule 11/11/24 - ER precautions discussed 11/11/24 - Seek medical attention for worsening symptoms 11/11/24 Chronic migraine without aur a without status migrainosus, not intractable 11/10/2024 Assessment & Plan (11/10/2024 2:35 PM EST): I advise to avoid migraine triggers like red wine, chocolate, cheese, strong perfumes I will start her on amitriptyline 10mg at bed time and sumatriptan 25mg PRN Abdominal pain 07/11/2024 Chronic allergic rhinitis 07/11/2024 Class 1 obesity 07/11/2024 Hx of cholecystectomy 07/11/2024 Irritant contact dermatitis 04/10/2024 Assessment & Plan (05/20/2024 1:30 PM EDT): On thighs Use betamethasone cream Use Mositurizing cream daily, zinc oxide cream in thighs to avoid friction. 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 Heartburn 04/06/2023 Assessment & Plan (04/06/2023 1:33 PM EDT): I advise patient to avoid NSAIDs, spicy and acid food, I advise to eat at the same time every day, I advise to elevate the head of the bed and take medications as prescribe Seasonal allergies 04/06/2023 Hospital discharge follow-up 02/21/2023 Assessment & Plan (07/15/2024 12:59 PM EDT): No specific followup needed fro hospital stay, followup with [facility] neuro, continue to take Depakote Chronic bilateral low back pain with bilateral s ciatica 02/21/2023 Assessment & Plan (10/31/2023 10:05 AM EST): C/w with pain medications PRN Referral to orthopedics [facility] done today Visit for preventive health examination 10/26/20 Assessment & Plan (10/26/2022 8:38 PM EST): Patient is encouraged to exercise moderately 4-5x/week. Counseled to increase consumption of fresh fruit, veggies and water. To have frequent and small meals. I have discussed re having protected sex at all times for STI purposes. Pat does not smoke, uses alcohol or any illicit drugs, seems to feel safe at home PAP smear due on 08/2027 Adult IZs: Tdap given today/Influenza uptodate on /Covid x 2 on 2020, declined booster. Check MMR, Hep B and varicella titers. Ophthalmology : Up to date. Next one due on 06/2024 Labs: Ordered Dental visit: Up to date. Next one due on 12/2022 Oligomenorrhea 10/26/2022 Assessment & Plan (10/26/2022 8:32 PM EST): RO PCOS. Patient will get labs from APPLIANCE REPAIR TECHNICIAN done. Keep menstruation dairy. FU w APPLIANCE REPAIR TECHNICIAN Type 2 diabetes mellitus wit h hyperglycemia, without long-term current use of insulin 10/26/2022 Assessment & Plan (11/10/2024 2:34 PM EST): Diabetes is: controlled - Lab Results Component Value Date HGBA1C 6.4 (A) 11/10/2024 HGBA1C 6.1 (A) 07/14/2024 HGBA1C 5.7 02/08/2024 - Lab Results Component Value Date MICROALBUR 25.0 10/08/2023 CREATININE 0.55 10/24/2024 -Changes: none - Diabetic eye exam:pending - Diabetic foot exam:pending - Continue lifestyle modifications - Continue current medications - Follow up: 3 months Assessment & Plan (10/31/2023 10:03 AM EST): Lab Results Component Value Date HGBA1C 6.7 (A) 05/24/2023 HGBA1C 7.9 (A) 02/21/2023 HGBA1C 8.1 (A) 10/26/2022 - Lab Results Component Value Date MICROALBUR 25.0 10/08/2023 CREATININE 0.87 07/23/2023 - Diabetic eye exam: referral today - Diabetic foot exam: pending - Continue lifestyle modifications - Continue current medications Assessment & Plan (07/30/2023 3:21 PM EDT): - Lab Results Component Value Date HGBA1C 6.7 (A) 05/24/2023 HGBA1C 7.9 (A) 02/21/2023 HGBA1C 8.1 (A) 10/26/2022 - Lab Results Component Value Date CREATININE 0.87 07/23/2023 - Continue lifestyle modifications - Continue current medications Assessment & Plan (05/24/2023 9:56 AM EDT): - Lab Results Component Value Date HGBA1C 6.7 (A) 05/24/2023 HGBA1C 7.9 (A) 02/21/2023 HGBA1C 8.1 (A) 10/26/2022 - Lab Results Component Value Date CREATININE 0.64 04/14/2023 - Continue lifestyle modifications - I increase her metformin 500mg BID - Assessment & Plan (04/06/2023 1:33 PM EDT): Better controlled continue with current interventions Assessment & Plan (02/21/2023 4:17 PM EDT): - Lab Results Component Value Date HGBA1C 8.1 (A) 10/26/2022 - Lab Results Component Value Date CREATININE 0.70 12/29/2022 - Diabetic eye exam:pending - Diabetic foot exam: pending - I will restart a lower dose of metformin 500mg daily she was instructed to log glucose, she was educated about life style modification TC 8 weeks with log Assessment & Plan (10/26/2022 8:33 PM EST): Of new onset Check fgtsk 1x/d and fu in 3w to start meds, likely metformin due to co- morbidities Counseled re more frequent low calorie/carb meals. Encouraged physical activity as tolerated. FU in 3-4w. 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 FU with neurology result of videoEEG Continue Depakote Assessment & Plan (02/08/2024 10:36 AM EDT): Continue to follow with neurology, today I refilled her depakot Assessment & Plan (10/31/2023 10:06 AM EST): Continue to follow with neurology Assessment & Plan (05/24/2023 9:54 AM EDT): Continue with divalproex 250mg BID Patient has upcoming appointment with neurology I advise not to miss her appointment Acute low back pain 10/04/2022 Encounters Date Type Department Care Team Description 12/02/2024 Refill [facility] MEDICINE [address] [place] [address] Kath Venegas MD Chronic migraine without aura without status migrainosus, not intractable 11/28/2024 Patient Outreach [facility] MEDICINE [address] [place], [place] [phone] Kath Venegas MD Pre-visit Planning (SDOH screening negative and tobacco screening negative) 11/25/2024 10:20 AM EST [facility] [address] [address] Danna Berg MD Viral upper respiratory infection (Primary Dx); History of shingles 11/21/[address] [address] Yris Patel, RN Results 11/11/2024 10:20 AM EST [facility] [address] [address] Danna Berg MD Strep pharyngitis (Primary Dx); Cough in adult patient; History of shingles 11/11/[address] [address] Kath Venegas MD 11/11/2024 Travel 11/10/2024 10:45 AM EST Office Visit [address] [address] Kath Venegas MD Dizziness (Primary Dx); Type 2 diabetes mellitus with hyperglycemia, without long-term current use of insulin ([facility]); Chronic migraine without aura without status migrainosus, not intractable 11/10/2024 Travel 11/05/2024 Patient Outreach [facility] MED & P[facility]S [address] [place] [address] Kath Venegas MD Transition Of Care (Tcm) 11/04/2024 Orders Only [facility] External Provider, [facility] 10/27/2024 Patient Outreach [address] [phone] Pam Larry, wax specialist Of Care (Tcm) 10/24/2024 Orders Only GENERIC EXTERNAL DATA DEPARTMENT Provider, Generic External Data 10/20/2024 Patient Outreach [address] [address] Kath Venegas MD Transitions of Care (ED Visit) 10/20/[address] [address] Lupe Sloan [place] Provider Out 10/18/2024 Orders Only GENERIC EXTERNAL DATA DEPARTMENT Provider, Generic External Data 10/17/2024 Orders Only [facility] WALK-IN [address] [address] [facility] HSV infection (Primary Dx) 10/13/[address] [address] [facility] Results 10/10/2024 10:00 AM EST [facility] [address] [address] Yanick Post MD Pharyngitis, unspecified etiology (Primary Dx); Viral URI 10/10/2024 Orders Only [facility] [address] [address] Yanick Post MD 10/09/2024 Patient Outreach [address] [address] Kath Venegas MD Pre-visit Planning (SDOH screening completed on 06/12/2024) 10/06/2024 1:45 PM EST Office Visit [address] [address] [facility] Facial lesion (Primary Dx) 10/06/2024 Orders Only [address] [address] [facility] 10/06/2024 Travel 10/04/[address] [address] Kath Venegas MD Type 2 diabetes mellitus with hyperglycemia, without long-term current use of insulin ([facility]) 09/22/[address] [address] Neelima Lr CNM 09/16/2024 Refill [facility] & P[facility] [address] [place] [phone] Kath Venegas MD Type 2 diabetes mellitus without complication, without long-term current use of insulin ([facility]) 09/12/2024 Patient Outreach [facility] MEDICINE [address] [place] [address] Pam Larry RN Transition Of Care ([facility]) 09/08/2024 Patient Outreach [facility] MEDICINE [address] [place] [address] Kath Venegas MD Transition Of Care ([facility]) from Last 3 Months Immunizations Name Administration Dates Next Due INFLUENZA VACCINE QUADRIVALE NT RECOMBINANT PRESERVATIVE FREE RIV4 08/18/2020 Influenza injectable quadriv alent preservative free 07/30/2023,08/30/2022,06/23/2019 Influenza, seasonal, injecta ble, preservative free 07/14/2024 Tdap 10/26/2022 Social History Tobacco Use Types Packs/Day Years Used Date Smoking Tobacco: Never Passive Smoke Exposure: Never Smokeless Tobacco: Never Tobacco Cessation:Counseling Given: Not Answered Alcohol Use Standard Drinks/Week Comments Never 0 [...] not to disclose 2021 10:35 AM EDT Last Filed Vital Signs Vital Sign Reading [...] Mass Index 33.98 11/25/2024 9:14 AM EST Plan of Treatment Upcoming Encounters Date Type Department Care Team (Late st Contact Info) Description 12/11/2024 10:45 AM EST Office Visit [facility] MEDICINE [address] [place] [address] Kath Venegas MD [address] [place] [address] Health Maintenance Due Date Last Done Comments Diabetes: Foot Exam 2001 Alcohol/Substance Use Screening 2003 Hepatitis A Vaccines (1 of 2 - Risk 2-dose series) 2010 Hepatitis B Vaccines (1 of 3 - 19+ 3-dose series) 2010 Pneumococcal Vaccine: Pediatrics (0 to 5 Years) and At-Risk Patients (6 to 49) Years) (1 of 2 - PCV) 2010 COVID-19 Vaccine ( season) 2024 05/27/2021, 05/06/2021 Diabetes: Urine Protein Screening 10/08/2024 10/08/2023 Lipid Panel 10/08/2024 10/08/2023, 10/27/2021 Depression Screening 04/10/2025 04/10/2024, 04/10/20 Diabetes: Hemoglobin A1C 05/10/2025 025, 07/14/2024, 02/08/2024, Additional history exists Family Planning (PISQ) 06/26/2025 06/26/2024 Tobacco Screening 11/25/2025 11/25/2024 SDOH Screening 11/28/2025 11/28/2024 Eye Exam 12/20/2025 12/20/2023, 11/30, 12/20/2023, Additional history exists Cervical Cancer Screening 08/30/2027 HPV/Cotest 08/30/2027 08/30/2022 Pap Smear 08/30/2027 08/30/2022, 08/30/2022 DTaP/Tdap/Td Vaccines (2 - Td or Tdap) 10/26/2032 10/26/2022 Zoster Vaccines (1 of 2) 2041 RSV Patients and Patients Aged 60 years or older (1 - 1-dose 75+ series) 2066 HIV Screening Completed 09/28/2022, 10/27/2021 Hepatitis C Screening Completed 10/26/2022 Influenza Vaccine Completed 07/14/2024, , 08/30/2022, Additional history exists HIB Vaccines Aged Out No longer eligi ble based on patient's age to complete this topic HPV Vaccines Aged Out No longer eligi ble based on patient's age to complete this topic IPV Vaccines Aged Out No longer eligi ble based on patient's age to complete this topic Meningococcal Vaccine Aged Out No austin rylie eligible based on patient's age to complete this topic RSV under 20 months Aged Out No longe r eligible based on patient's age to complete this topic Rotavirus Vaccines Aged Out No longer eligible based on patient's age to complete this topic Procedures Procedure Name Priority Date/Time Associated Diagnosis Comments POCT INFLUENZA B (ID NOW RAPID MOLECULAR) Routine 11/25/2024 9:22 AM EST Viral upper respiratory infection POCT INFLUENZA A (ID NOW RAPID MOLECULAR) Routine 11/25/2024 9:22 AM EST Viral upper respiratory infection POCT RAPID COVID ANTIGEN Routine 11/25/2024 9:22 AM EST Viral upper respiratory infection MR BRAIN WO CONTRAST Routine 11/17/2024 10:37 AM EST Dizziness Chronic migraine without aura without status migrainosus, not intractable POCT INFLUENZA A (ID NOW RAPID MOLECULAR) Routine 11/11/2024 10:48 AM EST Cough in adult patient POCT INFLUENZA B (ID NOW RAPID MOLECULAR) Routine 11/11/2024 10:48 AM EST Cough in adult patient POCT RAPID COVID ANTIGEN Routine 11/11/2024 10:42 AM EST Cough in adult patient POC FRANCIS ID NOW STREP A Routine 11/11/2024 10:42 AM EST Cough in adult patient POCT GLYCATED HEMOGLOBIN, TOTAL Routine 11/10/2024 10:47 AM EST Type 2 diabetes mellitus with hyperglycemia, without long-term current use of insulin ([facility]) POCT GLUCOSE Routine 11/10/2024 10:46 AM EST Type 2 diabetes mellitus with hyperglycemia, without long-term current use of insulin ([facility]) SARS COV2/INFLUENZA A/B AND RSV RNA QL NAAT Routine 11/04/2024 1:27 PM EST STREP A NUCLEIC ACID Routine 11/04/2024 1:27 PM EST XR CHEST 1 VIEW Routine 11/04/2024 11:56 AM EST URINALYSIS WITH REFLEX MICROSCOPIC Routine 10/24/2024 10:37 PM EST BASIC METABOLIC PANEL Routine 10/24/2024 9:58 PM EST CBC WITH AUTO DIFFERENTIAL Routine 10/24/2024 9:58 PM EST STREP A NUCLEIC ACID Routine 10/24/2024 9:58 PM EST SARS COV2/INFLUENZA A/B AND RSV RNA QL NAAT Routine 10/24/2024 9:58 PM EST HCG, TOTAL, QN Routine 10/18/2024 10:30 PM EST LIPASE Routine 10/18/2024 10:30 PM EST COMPREHENSIVE METABOLIC PANEL Routine 10/18/2024 10:30 PM EST CBC WITH AUTO DIFFERENTIAL Routine 10/18/2024 10:30 PM EST INFLUENZA A B2 ID NOW (FRANCIS) Routine 10/18/2024 10:30 PM EST COVID-19 ID NOW (FRANCIS) Routine 10/18/2024 10:29 PM EST STREP A NUCLEIC ACID Routine 10/18/2024 10:29 PM EST CULTURE, THROAT Routine 10/10/2024 10:33 AM EST POCT INFLUENZA B (ID NOW RAPID MOLECULAR) Routine 10/10/2024 10:12 AM EST Viral URI POCT INFLUENZA A (ID NOW RAPID MOLECULAR) Routine 10/10/2024 10:12 AM EST Viral URI POCT RAPID STREP A Routine 10/10/2024 10 :12 AM EST Viral URI POCT RAPID COVID ANTIGEN Routine 10/10/2024 10:12 AM EST Viral URI GRAM STAIN Routine 10/06/2024 2:18 PM EST HERPES CULTURE WITH REFLEX TYPING Routine 10/06/2024 2:18 PM EST Facial lesion XR ANKLE 3+ VIEWS RIGHT Routine 09/11/2024 4:05 PM EST ALBUMIN, RANDOM URINE W/CREATININE Routine 10/08/2023 9:06 AM EST Type 2 diabetes mellitus with hyperglycemia, without long-term current use of insulin (CMS/HCC) LIPID PANEL, STANDARD Routine 10/08/2023 9:04 AM EST Type 2 diabetes mellitus with hyperglycemia, without long-term current use of insulin (CMS/HCC) HEPATITIS PANEL, GENERAL Routine 10/26/2022 11:26 AM EST Immunization counseling Visit for preventive health examination HIV 1/2 ANTIGEN/ANTIBODY, FOURTH GENERATION W/RFL Routine 09/28/2022 8:57 AM EST THINPREP IMAGING PAP AND HPV MRNA E6/E7, WITH CT/NG, TRICHOMONAS Routine 08/30/2022 10:40 AM EDT PAP SMEAR Routine 08/30/2022 12:00 AM EDT from Last 3 Months or Most Recently Relevant to Health Maintenance Results * POCT Rapid Influenza B FRANCIS ID NOW (11/25/2024 9:22 AM EST) Only the most recent of3 resultswithin the time period is included. Influenza B Negative Negative, Indeterminate [facility] QC Media Lot # [id number] [facility] Lot# Expiration Date [id number] [facility] Swab 11/25/2024 9:22 AM EST us Danna Berg MD POINT OF CARE TEST ENTER/E DIT ORDERABLES Final Result [facility] [address] [place] [phone] * POCT Rapid Influenza A FRANCIS ID NOW (11/25/2024 9:22 AM EST) Only the most recent of3 resultswithin the time period is included. Influenza A Negative Negative, Indeterminate [facility] Media Lot # [id number] [facility] Lot# Expiration Date [id number] [facility] Swab 11/25/2024 9:22 AM EST Danna Berg MD POINT OF CARE TEST ENTER/E DIT ORDERABLES Final Result Performing Organization Address [facility] de Phone Number [facility] [address] [place] [address] [phone] * POCT Rapid Covid-19 BinaxNOW (11/25/2024 9:22 AM EST) Only the most recent of3 resultswithin the time period is included. Rapid COVID Ag Negative [facility] QC Media Lot # [id number] [facility] Lot# Expiration Date [id number] [facility] Swab 11/25/2024 9:22 AM EST Danna Berg MD POINT OF CARE TEST ENTER/E DIT ORDERABLES Final Result Performing Organization Address [facility] de Phone Number [facility] [address] [place] [address] [phone] * MR Brain w/o Contrast (11/17/2024 10:37 AM EST) Anatomical Region Laterality Modality Brain Magnetic Resonan ce 11/17/2024 10:3 7 AM EST Narrative 11/17/2024 10:39 AM EST ? [facility] ?[address] ?[place] [address] ? Magnetic Resonance Report ? Signed ? Patient: Young León,Jerica ?MR#: [id number] ?? [id number] ? : 1990 ?Acct:[id number] ? Age/Sex: 34 / F ?ADM Date: 01/18/25 ? Loc: HO.MRI ? Attending Dr: Kath Carey MD ? Ordering Physician: Kath Venegas MD ?? Date of Service: 11/15/24 ?? Procedure(s): MR head/brain wo con ?? Accession Number(s): [id number] ? cc: Kath Venegas MD ? CLINICAL [...] DD/ 1037 ? TD/TT: 11/17/24 1037 ? Dinkey Locomotive Operator: ? Procedure Note Donanjelter, Image - 11/17/2024 [place] [address] Magnetic Resonance Report Signed Patient: Jerica CalixMR#: [id number] : 1990Acct:[id number] Age/Sex: 34 / FADM Date: 11/15/24 Loc: HO.MRI Attending Dr: Kath Carey MD Ordering Physician: Kath Venegas MD Date of Service: 11/15/24 Procedure(s): MR head/brain wo con Accession Number(s): [id number] cc: Kath Venegas MD CLINICAL HISTORY: persistent [...] 11/17/24 1038 DD/ 1037 TD/TT: 11/17/24 1037 Dinkey Locomotive Operator: Result [facility] Kath Carey MD IMG MRI PROCEDURES Ed ited Result - Final * (ABNORMAL) POCT Rapid Strep A FRANCIS ID NOW (11/11/2024 10:42 AM EST) [facility] Rapid Strep A Screen Positive( A) Negative, None Detected Swab 11/11/2024 10:4 2 AM EST Result [facility] Danna Berg MD POINT OF CARE TEST ENTER/E DIT ORDERABLES Final Result * (ABNORMAL) POCT HGB A1C (11/10/2024 10:47 AM EST) Pathologist [facility] Hemoglobin A1C 6.4(A) 4.0 - 6.0 % QC Media Lot # [id number] Lot# Expiration Date Blood 11/10/2024 10:4 7 AM EST Result [facility] Kath Carey MD POINT OF CARE TEST EN TER/EDIT ORDERABLES Final Result * POCT Glucose (11/10/2024 10:46 AM EST) Glucose Blood, POC 151 60 - 200 mg/dL QC Media Lot # [id number] Lot# Expiration Date ,025 Blood Capillary blood specimen / Unknown 11/10/2024 10:46 AM EST Result [facility] Kath Carey MD POINT OF CARE TEST EN TER/EDIT ORDERABLES Final Result * Strep A Nucleic Acid (11/04/2024 1:27 PM EST) Only the most recent of3 resultswithin the time period is included. IDNOW SERIAL# [id number] [facility] Strep A Nucleic Acid Negative Negative [facility] Comment:All test results mus t be correlated with clinical findings.This test has not been evaluated for monitoring treatment ofinfection.Additional follow-up testing using the culture method isrequired if the result is negative and clinical symptomspersist, or in the event of an acute rheumatic feveroutbreak. 11/04/2024 1:27 PM EST 11/04/2024 1:30 PM EST us Generic External Data Provider LAB MICROBIOLOGY - GENERAL ORDERABLES Final Result [facility] [address] [place] [phone] * SARS-CoV-2 RNA, Influenza A/B, and RSV RNA, Ql NAAT (11/04/2024 1:27 PM EST) Only the most recent of2 resultswithin the time period is included. Influenza A PCR NEGATIVE Negative [facility] Influenza B PCR NEGATIVE Negative [facility] Resp Syncy Virus RNA Qual PCR NEGATIVE Negative [facility] SARS COV2 PCR NEGATIVE Negative [facility] Comment:All test results mus t be correlated with clinical findings.Negative results do not preclude SARS-CoV2, influenza Avirus, influenza B virus and/or RSV infectionand should not be used as the sole basis for treatment orother patient management decisions. Negative results must becombined with clinical observations, patient history, andepidemiological information.This test has not been evaluated for monitoring treatment ofinfection.This test has been authorized by the FDA under an EmergencyUse Authorization (EUA) for use by authorized laboratories.Testing performed on the [employer] GeneXpert utilizingreal-time RT-PCR.All SARS CoV2 and positive influenza A/B results arereported to [facility]. 11/04/2024 1:27 PM EST 11/04/2024 1:30 PM EST us Generic External Data Provider LAB MICROBIOLOGY - GENERAL ORDERABLES Final Result [facility] [address] [facility] [place] [address] [phone] * XR Chest 1 View (11/04/2024 11:56 AM EST) Anatomical Region Laterality Modality Chest Radiographic Lesvia ging 11/04/2024 11:5 6 AM EST Narrative 11/04/2024 12:41 PM EST ? [facility] ?[address] ?[place] [address] ?XRay Report ? Signed ? Patient: Young León,Jerica ?MR#: [id number] ?? [id number] ? : 1990 ?Acct:[id number] ? Age/Sex: 34 / F ?ADM Date: 11/04/24 ? Loc: HO.ED ? Attending Dr: ? Ordering Physician: Janusz Navarrete ?? Date of Service: 11/04/24 ?? Procedure(s): XR chest 1V ?? Accession Number(s): [id number] ? cc: Janusz Navarrete; Kath Venegas MD ? EXAMINATION: ?? XR CHEST ? CLINICAL INFORMATION: ?? Coughing ? COMPARISON: ?? Chest x-ray 06/13/2024 ? TECHNIQUE: ?? Frontal view of the chest was obtained. ? FINDINGS: ?? No significant abnormality is noted involving the heart, lungs, ?? mediastinum, bony thorax or soft tissues. ? XR/XR chest 1V ?? IMPRESSION: ?? Unremarkable chest examination. ? Electronically signed by: ??José Luis Courtney MD ??11/04/2024 12:37 PM EST RP ? Dictated By: ?Courtney,José Luis S MD ? Signed By: ?<Electronically signed by José Luis S Courtney, MD in OV> ?11/04/24 1237 ? DD/ 1156 ? TD/TT: 11/04/24 1220 ? Dinkey Locomotive Operator: MSM ? Procedure Note Dino, Image - 11/04/2024 [address] [place] [address] XRay Report Signed Patient: Jerica aClixMR#: [id number] : 1990Acct:[id number] Age/Sex: 34 / FADM Date: 11/04/24 Loc: HO.ED Attending Dr: Ordering Physician: Janusz Navarrete Date of Service: 11/04/24 Procedure(s): XR chest 1V Accession Number(s): [id number] cc: Janusz Navarrete; Kath Venegas MD EXAMINATION: XR CHEST CLINICAL INFORMATION: Coughing COMPARISON: Chest x-ray 06/13/2024 TECHNIQUE: Frontal view of the chest was obtained. FINDINGS: No significant abnormality is noted involving the heart, lungs, mediastinum, bony thorax or soft tissues. XR/XR chest 1V IMPRESSION: Unremarkable chest examination. Electronically signed by: José Luis Valdez MD 11/04/2024 12:37 PM EST Dictated By: José Luis Valdez MD Signed By: <Electronically signed by José Luis Valdez MD in OV> 11/04/24 1237 DD/ 1156 TD/TT: 11/04/24 1220 Dinkey Locomotive Operator: [facility] External Provider IMG XR PROCEDURES Edited Result - Final * Urinalysis w/reflex microscopic (10/24/2024 10:37 PM EST) Color Urine Yellow [facility] Appearance Urine Clear [facility] PH 7.0 5.0 - 9.0 [facility] Glucose Urine UA Negative Negative mg/dL [facility] Urine Blood Negative Negative [facility] Specific [place] - Urine 1.015 1.005 - 1.025 [facility] Urine Protein Negative Neg-Trace mg/dL [facility] Urine Ketones Negative Negative mg/dL [facility] Nitrite Urine Negative Negative [facility] Leukocyte Esterase Urine Negative Negative [facility] 10/24/2024 10:3 7 PM EST 10/24/2024 10:39 PM EST Narrative [facility] - 10/24/2024 10:43 PM EST Urine, Clean Catch us Generic External Data Provider LAB URINE ORDERAB LES Final Result [facility] [address] [place] [address] [phone] * (ABNORMAL) CBC auto differential (10/24/2024 9:58 PM EST) Only the most recent of2 resultswithin the time period is included. White Blood Count 9.7 4.8 - 10.8 X10*3/uL [facility] Red Blood Count 4.11(L) 4.20 - 5.50 X10*6/uL [facility] Hemoglobin 13.7 12.0 - 16.0 g/dl [facility] Hematocrit 39.3 37.0 - 47.0 % [facility] Mean Corpuscular Volume 95.6 80.0 - 98.0 fL [facility] Mean Corpuscular Hemoglobin 33.3(H) 27.0 - 33.0 pg [facility] Mean Corpuscular HGB Conc 34.9 31.0 - 35.0 g/dl [facility] Red Cell Distribution Width 12.5 11.0 - 16.0 % [facility] Platelet Count 357 160 - 400 X10*3/uL [facility] Mean Platelet Volume 10.0 9.4 - 12.3 fL [facility] Neutrophils Percent Auto 57.0 45 - 73 % [facility] Imm Gran Pct Auto 0.2 0.0 - 0.4 % [facility] Lymphocytes Percent Auto 35.3 20 - 40 % [facility] Monocytes Percent Auto 6.5 2 - 11 % [facility] Eosinophils Percent Auto 0.6 0 - 4 % [facility] Basophils Percent Auto 0.4 0 - 2 % [facility] NRBC Pct Auto 0.0 0.0 - 0.2 /100WBC [facility] Neutrophils Absolute Auto 5.5 2.0 - 8.3 x10*3/uL [facility] Imm Gran Abs Auto 0.02 0.00 - 0.03 X10*3/uL [facility] Lymphocytes Absolute Auto 3.4 1.2 - 4.9 X10*3/uL [facility] Monocytes Absolute Auto 0.6 0.1 - 1.2 X10*3/uL [facility] Eosinophils Absolute Auto 0.1 0.0 - 0.4 X10*3/uL [facility] Basophils Absolute Auto 0.0 0.0 - 0.2 X10*3/uL [facility] NRBC Abs Auto 0.000 0.0 - 0.012 X10*3/uL [facility] 10/24/2024 9:58 PM EST 10/24/2024 10:02 PM EST us Generic External Data Provider LAB BLOOD ORDERAB LES Final Result [facility] [address] [place] [phone] * Basic Metabolic Panel (10/24/2024 9:58 PM EST) Sodium 137 135 - 145 mmol/L [facility] Potassium 4.3 3.3 - 5.1 mmol/L [facility] Chloride 102 96 - 108 mmol/L [facility] Carbon Dioxide 23 22 - 29 mmol/L [facility] Anion Gap 15 12 - 20 [facility] Urea Nitrogen (BUN) 11 9 - 16 mg/dL [facility] Creatinine, Serum 0.55 0.5 - 1.4 mg/dL [facility] Creatinine Clr Calc Pharmacy 134.3 [facility] Comment:Provided height and weight: 152.4 cm,78.018 kg.eGFR (calculated from the MDRD study equation) and eCrCl(calculated from the Cockcroft-Gault equation) are based ondifferent parameters and may not yield comparable results.If eCrCl result is absurd, please check patient'sheight/weight. Estimated Glomerular Filt Rate >60 [facility] Comment:Chronic Kidney Disea se: Estimated GFR < 60 mL/min/1.73l6Ksjdmf Kidney Disease: Estimated GFR < 15 mL/min/1.73m2 Glucose 109 60 - 115 mg/dL [facility] Calcium 9.7 8.4 - 10.2 mg/dL [facility] 10/24/2024 9:58 PM EST 10/24/2024 10:02 PM EST Generic External Data Provider LAB BLOOD ORDERAB LES Final Result Performing Organization Address [facility] Co de Phone Number [facility] [address] [place] [phone] * Influenza A B2 ID NOW (GetSocial) (10/18/2024 10:30 PM EST) IDNOW SERIAL# [id number] [facility] Influenza A Negative Negative [facility] Influenza B2 Negative Negative [facility] Influenza A B2 Note See Note [facility] Comment:The Francis ID NOW In fluenza A B2 test is used for thequalitative detection of influenza A and B from patientswith signs and symptoms of respiratory infection.Negative results do not preclude influenza virus infectionand should not be used as the sole basis for diagnosis,treatment or other patient management decisions.There is a risk of false negative results due to thepresence of variants in the viral targets of the assay, lowlevels of virus in the specimen and co- infection withRespiratory Syncytial Virus. 10/18/2024 10:3 0 PM EST 10/18/2024 10:36 PM EST Generic External Data Provider LAB MICROBIOLOGY - GENERAL ORDERABLES Final Result Performing Organization Address [facility] Co de Phone Number [facility] [address] [place] [phone] * hCG, Total, Quantitative (10/18/2024 10:30 PM EST) HCG Quantitative <2 mIU/mL [facility] Comment:Weeks post LMP Appr oximate hCG(Last Menstrual Period) Range (mIU/ml)3 - 4 weeks 9 - 1304 - 5 weeks 75 - 2,6005 - 6 weeks 850 - 20,8006 - 7 weeks 4000 - 100,2007 - 12 weeks 11,500 - 289,96967 - 16 weeks 18,300 - 137,84768 - 29 weeks (2nd trimester) 1,400 - 53,54877 - 41 weeks (3rd trimester) 940 - 60,000The Francis B-hCG assay is used for the early detection ofpregnancy; it cannot be used to diagnose any conditionunrelated to . If a B-hCG level is not supportedby the clinical evidence, results should be confirmed by analternative method (qualitative urine hCG, for example). 10/18/2024 10:3 0 PM EST 10/18/2024 10:36 PM EST Generic External Data Provider LAB BLOOD ORDERAB LES Final Result Performing Organization Address [facility]/ZIP Co de Phone Number [facility] [address] [place] [phone] * Lipase (10/18/2024 10:30 PM EST) Lipase 42 8 - 78 U/L [facility] 10/18/2024 10:3 0 PM EST 10/18/2024 10:36 PM EST [employer] External Data Provider LAB BLOOD ORDERAB LES Final Result Performing Organization Address [facility]/ZIP Co de Phone Number [facility] [address] [place] [phone] * (ABNORMAL) Comprehensive Metabolic Panel (10/18/2024 10:30 PM EST) Sodium 139 135 - 145 mmol/L [facility] Potassium 3.5 3.3 - 5.1 mmol/L [facility] Chloride 108 96 - 108 mmol/L [facility] Carbon Dioxide 24 22 - 29 mmol/L [facility] Anion Gap 11(L) 12 - 20 [facility] Urea Nitrogen (BUN) 16 9 - 16 mg/dL [facility] Creatinine, Serum 0.54 0.5 - 1.4 mg/dL [facility] Creatinine Clr Calc Pharmacy 138.1 [facility] Comment:Provided height and weight: 152.4 cm,79.379 kg.eGFR (calculated from the MDRD study equation) and eCrCl(calculated from the Cockcroft-Gault equation) are based ondifferent parameters and may not yield comparable results.If eCrCl result is absurd, please check patient'sheight/weight. Estimated Glomerular Filt Rate >60 [facility] Comment:Chronic Kidney Disea se: Estimated GFR < 60 mL/min/1.27t6Lkkeds Kidney Disease: Estimated GFR < 15 mL/min/1.73m2 Glucose 169(H) 60 - 115 mg/dL [facility] Calcium 9.1 8.4 - 10.2 mg/dL [facility] Bilirubin, Total 0.3 0.0 - 1.0 mg/dL [facility] Aspartate Amino Transferase 54(H) 5 - 31 U/L [facility] Alanine Aminotransferase 78(H) 0 - 31 U/L [facility] Total Protein 7.5 6.5 - 8.0 g/dL [facility] Albumin Level 4.1 3.5 - 5.0 g/dL [facility] Alkaline Phosphatase 77 39 - 117 U/L [facility] 10/18/2024 10:3 0 PM EST 10/18/2024 10:36 PM EST us Generic External Data Provider LAB BLOOD ORDERAB LES Final Result [facility] [address] [place] [phone] * COVID-19 ID NOW (FRANCIS) (10/18/2024 10:29 PM EST) IDNOW SERIAL# [id number] [facility] COVID-19 TEST Negative Negative [facility] COVID-19 NOTE See Note [facility] Comment: Results are for the identification of SARS-CoV2 RNA. TheSARS-CoV2 RNA is generally detectable in respiratory samplesduring the acute phase of infection. Positive results areindicative of the presence of SARS-CoV-2 RNA; clinicalcorrelation with patient history and other diagnosticinformation is necessary to determine patient infectionstatus. Positive results do not rule out bacterial infectionor co- infection with other viruses.Testing facilities within the [facility] and itsterritories are required to report all positive results tothe appropriate public health authorities.Negative results should be treated as presumptive and, ifinconsistent with clinical signs and symptoms or necessaryfor patient management, should be tested with differentauthorized or cleared molecular tests. Negative results donot preclude SARS-CoV2 RNA infection and should not be usedas the sole basis for patient management decisions. Negativeresults should be considered in the context of a patient'srecent exposures, history and the presence of clinical signsand symptoms consistent with COVID-19.This test has been authorized by the FDA under an EmergencyUse Authorization (EUA) for use by authorized laboratories.Testing performed on the Get[employer] ID NOW utilizing NAAT. 10/18/2024 10:2 9 PM EST 10/18/2024 10:36 PM EST us Generic External Data Provider LAB MOLECULAR ANAI GNOSTICS ORDERABLES Final Result [facility] [address] [place] [phone] * Culture, Throat (10/10/2024 10:33 AM EST) Throat Structure of anterior portion of neck / Unknown 10/10/2024 10:33 AM EST 10/10/2024 5:23 PM EST Comment:Throat Narrative [facility] - 10/12/2024 7:58 AM EST Throat Culture No Group A Beta-hemolytic Streptococci isolated. Specimen Source: Throat Yanick Post MD LAB MICROBIOLOGY - GENERAL ORDER SISSY Final Result Performing Organization Address [facility] Co de Phone Number [facility] [address] [place] [phone] * POCT rapid strep A manually resulted (10/10/2024 10:12 AM EST) Rapid Strep A Screen Negative Negative, None Detected [facility] Swab 10/10/2024 10:1 2 AM EST Yanick Post MD POINT OF CARE TEST ENTER/EDIT OR DERABLES Final Result Performing Organization Address [facility] de Phone Number [facility] [address] [place] [phone] * (ABNORMAL) Herpes Simplex Virus Culture with Reflex Typing (10/06/2024 2:18 PM EST) [facility] HSV Culture/Type SEE NOTE(A) [facility] Comment:HERPES SIMPLEX VIRUS CULTURE W/RFL TO TYPING Micro Number: [id number] Test Status: Final Specimen Source: Not given Specimen Quality: Adequate HSV Culture: Isolated HSV TYPE 2: Isolated HSV TYPE 1: The incidence of HSV 1 infection in the presence of HSV 2 (dual infection) is extremely rare. Therefore, testing for HSV 1 was not performed.THIS TEST WAS PERFORMED AT:[employer] [id number] MERATI,[place] Swab Topography unknown / Unknown 10/06/2024 2:18 PM EST 10/06/2024 5:57 PM EST [facility] LAB MICROBIOLOGY - GENERAL OR DERABLES Final Result Performing Organization Address [facility] Co de Phone Number [facility] [address] [place] [phone] * Gram stain (10/06/2024 2:18 PM EST) 10/06/2024 2:18 PM EST 10/06/2024 6:03 PM EST Comment:Cheek Rt Narrative [facility] - 10/09/2024 3:17 PM EST Gram stain results: No polys 2+ epithelial cells 1+ Gram-positive cocci Routine Culture Report - external Routine Culture 2+ Mixed skin reg Specimen Source: Cheek Right Result [facility] GOLF COURSE STARTER LAB MICROBIOLOGY - GENERAL OR DERABLES Final Result [facility] [address] [place] [phone] * XR Ankle 3+ Views Right (09/11/2024 4:05 PM EST) Anatomical Region Laterality Modality Lower Extremities, Ankle Right Radiogr aphic Imaging 09/11/2024 4:05 PM EST Narrative 09/11/2024 5:19 PM EST ? [facility] ?[address] ?[place] [address] ?XRay Report ? Signed ? Patient: Young León,Jerica ?MR#: [id number] ?? [id number] ? : 1990 ?Acct:[id number] ? Age/Sex: 33 / F ?ADM Date: 09/11/24 ? Loc: HO.ED ? Attending Dr: ? Ordering Physician: Aurea Levine ?? Date of Service: 09/11/24 ?? Procedure(s): XR ankle RT min 3V ?? Accession Number(s): [id number] ? cc: Kath Venegas MD; Aurea Levine ? EXAMINATION: ?? XR ANKLE, RIGHT ? CLINICAL INFORMATION: ?? Fall ? COMPARISON: ?? None available. ? TECHNIQUE: ?? AP, lateral, and mortise views of the right ankle. ? FINDINGS: ?? No acute fracture or malalignment. The ankle mortise is preserved. ?? Dorsal osteophyte at the talonavicular joint. Prominent enthesophyte at ?? the Achilles insertion onto the posterior calcaneus. ? XR/XR ankle RT min 3V ?? IMPRESSION: ?? No acute fracture or malalignment. ? Electronically signed by: ??Carlin Sandhu MD ??09/11/2024 05:16 PM ?? EST RP ? Dictated By: ?Carlin Sandhu MD ? Signed By: ?<Electronically signed by Carlin Sandhu MD in OV> ? 09/11/24 1716 ? DD/ 1605 ? TD/TT: 09/11/24 1610 ? Dinkey Locomotive Operator: DM ? Procedure Note Donotpeterinterpreter, Image - 09/11/[address] [address] XRay Report Signed Patient: Jerica CalixMR#: [id number] : 1990Acct:[id number] Age/Sex: 33 / FADM Date: 09/11/24 Loc: HO.ED Attending Dr: Ordering Physician: Aurea Levine Date of Service: 09/11/24 Procedure(s): XR ankle RT min 3V Accession Number(s): [id number] cc: Kath Venegas MD; Aurea Levine EXAMINATION: XR ANKLE, RIGHT CLINICAL INFORMATION: Fall COMPARISON: None available. TECHNIQUE: AP, lateral, and mortise views of the right ankle. FINDINGS: No acute fracture or malalignment. The ankle mortise is preserved. Dorsal osteophyte at the talonavicular joint. Prominent enthesophyte at the Achilles insertion onto the posterior calcaneus. XR/XR ankle RT min 3V IMPRESSION: No acute fracture or malalignment. Electronically signed by: Carlin Sandhu MD 09/11/2024 05:16 PM [facility] [place] [place] Dictated By: Carlin Sandhu MD Signed By: <Electronically signed by Carlin Sandhu MD inOV> 09/11/24 1716 DD/ 1605 TD/TT: 09/11/24 1610 Dinkey Locomotive Operator: DM [facility] External Provider IMG XR PROCEDURES Final Result * Albumin, Random Urine W/Creatinine (10/08/2023 9:06 AM EST) Creatinine, Urine 377.21 mg/dL [facility] Microalbumin Urine 25.0 mg/L [facility] Microalbum Creatinine Ratio Ur 6.6 <30 ug/mg cr [facility] Comment:Albumin/Creatinine R atio Reference Ranges: Normal: < 30 ug/mg creatinine Microalbuminuria: 30 - 300 ug/mg creatinineClinical Albuminuria: > 300 ug/mg creatinine Urine (Urine, Random) 10/08/2023 9:06 AM EST 10/08/2023 11:51 AM EST Kath Carey MD LAB URINE ORDERABLES Final Result [facility] [address] [place] [address] [phone] * (ABNORMAL) Lipid Panel, Standard (10/08/2023 9:04 AM EST) Triglycerides 134 <150 mg/dL [facility] Comment:Desirable Triglyceri de: less than 150 mg/dLBorderline High Triglyceride 150-199 mg/dLHigh Triglyceride: 200-499 mg/dLVery High Triglyceride: greater than or equal to 5OO mg/dL Cholesterol 192 <200 mg/dL [facility] Comment:Desirable Cholestero l: less than 200 mg/dLBorderline High Cholesterol: 200-239 mg/dLHigh Cholesterol: greater than 239 mg/dL LDL Cholesterol Calculated 134(H) <100 mg/dL [facility] Comment:Desirable LDL: less than 100 mg/dLNear Optimal/Above Optimal LDL: 110- 129 mg/dLBorderline High LDL: 130-159 mg/dLHigh LDL: 160-189 mg/dLVery High LDL: greater than or equal to 190 mg/dL HDL Cholesterol 32(L) >40 mg/dL [facility] Comment:Desirable HDL: great er than 40 mg/dL Note: This HDL assay may give artificially low results in patients with liver disease. Blood Venous blood specimen / Unknown 10/08/2023 9:04 AM EST 10/08/2023 11:16 AM EST us Kath Carey MD LAB BLOOD ORDERABLES Final Result [facility] [address] [place] [phone] * (ABNORMAL) Hepatitis Panel, General (10/26/2022 11:26 AM EST) Hepatitis A Antibody Total REACTIVE( A) NON-REACT [facility] [employer] Comment: For additional information, please refer to http://Elixserve.LoveByte/faq/HWG113 (This link is being provided for informational/ educational purposes only.) Hepatitis B Surface Antibody QL REACTIVE( A) NON-REACT [employer] [place] [employer] Hepatitis B Surface Ag NON-REACT [facility] NON-REACT [employer] [place] [employer] Hepatitis B Core Antibody Total NON-REACT [facility] NON-REACT [facility] [employer] [place] [employer] Hepatitis C Antibody NON-REACT [facility] NON-REACT [employer] [place] [employer] Index 0.17 <1.00 [facility] Comment: HCV antibody was non-reactive. There is no laboratory evidence of HCV infection. In most cases, no further action is required. However, if recent HCV exposure is suspected, a test for HCV RNA (test code 79285) is suggested. For additional information please refer to http://Elixserve.LoveByte/faq/VGJ03f9 (This link is being provided for informational/ educational purposes only.) 10/26/2022 11:2 6 AM EST 10/26/2022 11:27 AM EST Narrative [facility] - 10/31/2022 11:45 PM EST FASTING:NO FASTING: NO us Cheyenne Otto MD LAB BLOOD ORDERABLES Fin al Result [facility] [address] [place] [address], [place] [phone] [employer] [facility] [address] [facility], ([address]) [place] [address] * HIV-1/2 Antigen and Antibodies, Fourth Generation, with Reflexes (09/28/2022 8:57 AM EST) Pathologist [facility] HIV Antigen/Antibody, 4th Generation NON-REAC TIVE NON-REAC TIVE [employer] [place] [employer] Comment: HIV-1 antigen and HIV-1/HIV-2 antibodies were not detected. There is no laboratory evidence of HIV infection. PLEASE NOTE: This information has been disclosed to you from records whose confidentiality may be protected by state law. ??If your state requires such protection, then the state law prohibits you from making any further disclosure of the information without the specific written consent of the person to whom it pertains, or as otherwise permitted by law. A general authorization for the release of medical or other information is NOT sufficient for this purpose. ?? For additional information please refer to http://education.LoveByte/faq/WAI353 (This link is being provided for informational/ educational purposes only.) The performance of this assay has not been clinically validated in patients less than 2 years old. 09/28/2022 8:57 AM EST 09/28/2022 8:57 AM EST Neel[facility] Lr [facility] LAB BLOOD ORDERABLES Kajal l Result [facility] [address] [place] [address], [place] [address] [employer] [facility] [address], [place] [address] * THINPREP TIS PAP AND HPV mRNA E6/E7, CT/NG, TRICH (08/30/2022 10:40 AM EDT) Pathologist [facility] Chlamydia trachomatis RNA, TMA, Urogenital NOT DETECTED NOT DETECTED CONVERTED LEGACY LABS Clinical Information: None given CONVERTED LEGACY LABS COMMENT SEE COMMENT CONVERTE D LEGACY LABS Comment: The analytical performance characteristics of this assay, when used to test SurePath(TM) specimens have been determined by [employer]. The modifications have not been cleared or approved by the FDA. This assay has been validated pursuant to the CLIA regulations and is used for clinical purposes. ?? For additional information, please refer to https://Elixserve.LoveByte/faq/HUL679 (This link is being provided for information/ educational purposes only.) ?? COMMENT SEE COMMENT CONVERTE D LEGACY LABS Comment: EXPLANATORY NOTE: ? The Pap is a screening test for cervical cancer. It is ?? not a diagnostic test and is subject to false negative ?? and false positive results. It is most reliable when a ?? satisfactory sample, regularly obtained, is submitted ?? with relevant clinical findings and history, and when ?? the Pap result is evaluated along with historic and ?? current clinical information. ?? COMMENT: This Pap test has been evaluated with computer assisted technology. CONVERTED LEGACY LABS Intensive Care Anaesthetist: SEE COMMENT CONVERTED LEGACY LABS Comment: ED, CT(ASCP) CT screening location: ?? [facility] ?? [address] [place] [address] ?? [place] [address] HPV nRNA E6/E7 Not Detected Not Detected CONVERTED LEGACY LABS Comment: Methodology: Dental Appliance Mechanic-Mediated Amplification This assay detects E6/E7 viral messenger RNA (mRNA) from 14 high-risk HPV types (16,18,31,33,35,39,45,51,52,56,58,59,66,68). ? Cervical sources are required for HPV testing. If a vaginal source from a patient who has had a total hysterectomy with removal of cervix was ?? submitted, please contact the testing laboratory for alternative testing options. ?? For additional information, please refer to http://Elixserve.LoveByte/faq/ODP278w0 (This link if provided for information/ educational purposes only.) Interpretation/Re sult: Negative for intraepithelial lesion or malignancy. CONVERTED LEGACY LABS LMP: 07/18/22 CONVERTED LEGACY LABS Neisseria gonorrhoeae RNA, TMA, Urogenital NOT DETECTED NOT DETECTED CONVERTED LEGACY LABS Prev. BX: NONE GIVEN CONVERTED LEGACY LABS Prev. PAP: NONE GIVEN CONVERTE D LEGACY LABS SOURCE: None given CONVERTED LEGACY LABS Statement Of Adequacy: SEE COMMENT CONVERTED LEGACY LABS Comment: Satisfactory for evaluation. Endocervical/transformation zone component present. Trichomonas vaginalis, QL, TMA, PAP Vial NOT DETECTED NOT DETECTED CONVERTED LEGACY LABS Comment: The analytical performance characteristics of this assay have been determined by [employer]. The modifications have not been cleared or approved by the FDA. This assay has been validated pursuant to the CLIA regulations and is used for clinical purposes. ?? For additional information, please refer to http://education.LoveByte/ faq/Trichomonastma (This link is being provided for information/ educational purposes only.) ?? 08/30/2022 10:4 0 AM EDT [facility] LAB PATHOLOGY ORDERABLES Final Result CONVERTED LEGACY LABS * Pap Smear (08/30/2022 12:00 AM EDT) [facility]LES F inal Result [facility] [address], [place] [address] from Last 3 Months or Most Recently Relevant to Health Maintenance Insurance [facility] C3 Care Teams Senior Chemical Engineer Relationship Specialty Start Date End Date Kath Venegas MD [address] [place] [address] PCP - General Family Medicine 06/04/19 Zeny Mckenzie Lingo Cleaner 03/03/24
--- OUTSIDE RECORDS SUMMARY | 2024-12-09 17:34 | XMS_ITS | Encounter Summary ---
Author Organization [employer] Address [address] [place] [address] Care Team Providers Care Slot Machine Department Floorperson Name Role Phone Kath Venegas MD Primary Care Provide r Encounter Details Date Type Department Care Team (Latest Contact Info) Description 11/11/2024 Travel Social History Tobacco Use Types Packs/Day [...] Description 12/11/2024 10:45 AM EST Office Visit [facility] MEDICINE [address] [place] [address] Kath Venegas MD [address] [place] [address] documented as of this encounter Visit Diagnoses Not on filedocumented in this encounter Care Teams Slot Machine Department Floorperson Relationship Specialty Start Date End Date Kath Venegas MD [address] [place], [place] [phone] PCP - General Family Medicine 06/04/19 Zeny Mckenzie Manager [place] 03/03/24 documented as of this encounter
[2024-12-09 20:00] VITALS: BP 146/68; PULSE 91; RESP 18; TEMP 36.6; O2SAT 100
[2024-12-09] MEDS: Ketorolac Tromethamine 60 MG/2 ML VIAL IM (21:07)
[2024-12-09 21:38] VITALS: BP 146/68; PULSE 91; RESP 18; TEMP 36.6; O2SAT 100
== END 2024-12-09 21:39 | disposition home or self-care (01) ==
PROVIDERS: Emergency Provider Emergency Medicine Emergency Medical Services; PCP Internal Medicine Infectious Disease
DX: S06.9X1A Unspecified intracranial injury with loss of consciousness of 30 minutes or less, initial encounter (principal); S59.902A Unspecified injury of left elbow, initial encounter; R42 Dizziness and giddiness; R10.2 Pelvic and perineal pain; R51.9 Headache, unspecified; M25.522 Pain in left elbow; M54.2 Cervicalgia; W18.30XA Fall on same level, unspecified, initial encounter; Y93.9 Activity, unspecified; Y92.9 Unspecified place or not applicable; Y99.8 Other external cause status; Z79.899 Other long term (current) drug therapy
CPT/HCPCS: 70450; 70486; 96372; 99283; 99284; J1885

== ENCOUNTER → 2024-12-09 16:35 | Outpatient (BNV) | payer MEDICAID, SELFPAY | PROVIDERS: Emergency Provider Emergency Medicine Emergency Medical Services; PCP Internal Medicine Infectious Disease; Visit Provider Radiology Diagnostic Radiology | DX: S09.93XA Unspecified injury of face, initial encounter (principal); S09.90XA Unspecified injury of head, initial encounter | CPT/HCPCS: 70450; 70486 ==

== ENCOUNTER 2024-12-25 17:51 | Emergency (ER) | payer MEDICAID, SELFPAY ==
--- NOTE | ~2024-12-25 | XR_ITS ---
CLINICAL HISTORY: mid Thoracic spine pain, no trauma 2 view chest x-ray Comparison: CR/SR - XR CHEST 1V - 11/04/24 12:21 EST CR/SR - XR CHEST 2V - 08/31/23 09:54 EDT Findings: The lungs are clear. Normal size heart. No acute fracture. IMPRESSION: 1. No acute findings. This document has been electronically signed by: Fercho Granger MD on 12/25/2024 22:54:58
[2024-12-25 18:07] VITALS: BP 127/55; PULSE 92; RESP 18; TEMP 36.3; O2SAT 99; BMI 34.4
[2024-12-25 21:04] VITALS: BP 126/86; PULSE 94; RESP 18; TEMP 36.6; O2SAT 99
--- NOTE | 2024-12-25 22:07 | ED.BACK ---
HPI - Back Pain/Injury General Chief Complaint: Back Pain/Injury Stated Complaint: back pain Time Seen by Provider: 12/25/24 21:58 Source: patient Mode of arrival: ambulatory Limitations: no limitations History of Present Illness ED Provider: DR. Crisostomo HPI Narrative: 34-year-old female came in for evaluation of neck back pain feels like throbbing pain in the midthoracic area radiates to both sides, more with movement or taking a deep breath, pain radiates down to the lower spine, no trauma, no injury, no falls, no heavy lifting, no strenuous exercising. No fever, no chills, no history of IV drug use. Related Data Home Medications ?Medication ?Instructions ?Recorded ?Confirmed metformin 500 mg tablet 500 mg PO BIDWM 07/30/23 10/01/24 divalproex 250 mg tablet,extended 250 mg PO BID 06/08/24 10/01/24 release 24 hr divalproex 500 mg tablet,extended 500 mg PO BID 06/08/24 10/01/24 release 24 hr Previous Rx's ?Medication ?Instructions ?Recorded cyclobenzaprine 10 mg tablet 10 mg PO TID PRN muscle spasm #15 07/18/24 tabs acetaminophen 500 mg tablet 500 mg PO Q6H PRN fever or pain 09/03/24 #20 tabs ibuprofen 600 mg tablet 600 mg PO Q8H PRN pain #14 tabs 09/03/24 ibuprofen 600 mg tablet 600 mg PO Q8H PRN pain #20 tabs 09/06/24 lidocaine 5 % topical patch 1 patch topical DAILY #15 ea 09/06/24 (Lidoderm) naproxen 500 mg tablet 500 mg PO BID PRN pain #14 tabs 09/11/24 naproxen 500 mg tablet 500 mg PO BID 30 days #60 tabs 10/01/24 meclizine 25 mg tablet 25 mg PO TID PRN dizziness #20 tabs 10/19/24 ondansetron 4 mg disintegrating 4 mg PO Q8H PRN nausea and 10/19/24 tablet vomiting #20 tabs acetaminophen 325 mg tablet 325 mg PO QID PRN pain #28 tabs 11/04/24 (Tylenol) meclizine 25 mg tablet (Dramamine 25 mg PO TID PRN dizziness #20 tabs 02/11/25 Less Drowsy) ibuprofen 600 mg tablet 600 mg PO TID PRN pain #10 tabs 12/25/24 Allergies Allergy/AdvReac Type Severity Reaction Status Date / Time Iodinated Contrast Media Allergy Intermediate Facial Verified 12/25/24 18:09 Swelling clindamycin [CLINDAMYCIN] Allergy Unknown ANAPHYLAXIS Verified 12/25/24 18:09 latex Allergy Itching Verified 12/25/24 18:09 Review of Systems Review of Systems: All other systems are reviewed and are negative Constitutional: Reports as per HPI and Reports no additional constitutional complaints Eyes: Reports as per HPI and Reports no additional eye complaints Reports system reviewed and no additional complaints, except as documented Cardiovascular: Reports as per HPI and Reports no additional cardiovascular complaints Respiratory: Reports as per HPI and Reports no additional respiratory complaints Gastrointestinal: Reports as per HPI and Reports no additional gastrointestinal complaints Genitourinary: Reports no additional female genitourinary complaints Musculoskeletal: Reports no additional musculoskeletal complaints Skin/Breast: Reports system reviewed and no additional complaints, except as docu Psychiatric: Reports no additional psychiatric complaints Endocrine: Reports no additional endocrine complaints Hematologic/Lymphatic: Reports no additional hematologic/lymphatic complaints Allergic/Immunologic: Reports no additional allergic/immunologic complaints Reports system reviewed and no additional complaints, except as documented and Reports Abnormal speech present [facility] Past Medical History Medical History Chronic allergic rhinitis Otitis media Hypoxia Viral pneumonia Infection due to human metapneumovirus (hMPV) Diabetes mellitus Epilepsy Surgical History Hx of cholecystectomy Social History Social History Household Members: Spouse and Children Housing: Apartment Do you presently have visiting nurse or other home services: No Alcohol intake: current Alcohol intake frequency: holidays/special occasions only Patient Tobacco Use Status: Never used Tobacco Advance Directives: Yes Advance Directives on File: Yes Advance Directives Date on File: 08/17/23 service: No Current occupational status: employed 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 Blood pressure elevated. Heart rate normal. Respiratory rate normal. Temperature normal. Oxygen saturation normal. Appearance: Alert. Oriented X3. No acute distress. Head: Normal external exam. Normocephalic. Atraumatic. No Ordoñez signs noted. No raccoon eyes noted Eyes: PERRLA. EOMI. Conjunctiva and sclera normal. Eyelids normal. ENT: TM's Normal. Pharynx normal. Uvula midline. Moist mucous membranes. No trismus noted. No drooling noted. No muffled voice noted. Neck: Normal inspection. Neck supple. FROM. No adenopathy. Thyroid Normal. No meningeal signs. No neck mass noted. CVS: Normal heart rate and rhythm. Heart sound normal. No murmurs noted. Pulses normal throughout. Respiratory: No respiratory distress. Painless inspiration. Breath sounds normal. No wheezes/rales/rhonchi noted. Chest nontender. No accessory muscle usage noted or decreased air movement noted. Abdomen: Soft and nontender. Bowel sounds normal in all 4 quadrants. No distention noted. No organomegaly noted. No visible injury noted. Back: No CVA tenderness. Full range of motion noted. Skin: Skin warm and dry. Normal skin color. Normal skin turgor. No rashes/lesions/lacerations noted. Extremities: No lower extremity edema. Extremities exhibit normal range of motion. Extremities nontender. Neuro: Oriented X 3. Cranial nerve exam: II-XII are grossly intact No motor deficit. No sensory deficit. Reflexes normal. Course Reevaluation(s) Reevaluation #1: Mid chest pain, unremarkable chest x-ray, no history of injury, feels better with ibuprofen instructed take NSAIDs if needed for pain. Time: 13:30 Medical Decision Making Differential Diagnosis Differential Diagnoses: The differential diagnosis associated with the presentation includes ( Thoracic spine degenerative disease, thoracic spine fracture, herniated disc, muscular strain.) Admission/Observation Consideration of admission/observation: Escalation of care including admission/observation considered Lab Data MDM Lab Attestation statement: I reviewed the patient's lab results. Independent Interpretation I performed an independent interpretation of an: Plain X-Ray ( Thoracic spine x-ray: No acute pathology.) Radiology Impression Discussion of test interpretation with radiology: I have reviewed the radiologist's reading. Discharge Plan Discharge Clinical Impression: Thoracic back pain Patient Disposition: Still a Patient Instructions: Thoracic Pain (ED) Prescriptions: New ibuprofen 600 mg tablet 600 mg PO TID PRN (Reason: pain) Qty: 10 0RF No Action ibuprofen 600 mg tablet 600 mg PO Q8H PRN (Reason: pain) Qty: 14 0RF acetaminophen 500 mg tablet 500 mg PO Q6H PRN (Reason: fever or pain) Qty: 20 0RF naproxen 500 mg tablet 500 mg PO BID PRN (Reason: pain) Qty: 14 0RF ondansetron 4 mg tablet,disintegrating 4 mg PO Q8H PRN (Reason: nausea and vomiting) Qty: 20 0RF meclizine 25 mg tablet 25 mg PO TID PRN (Reason: dizziness) Qty: 20 0RF meclizine [Dramamine Less Drowsy] 25 mg tablet 25 mg PO TID PRN (Reason: dizziness) Qty: 20 0RF metformin 500 mg tablet 500 mg PO BIDWM divalproex 500 mg tablet extended release 24 hr 500 mg PO BID Rx Instructions: with 250 mg; total 750 mg BID divalproex 250 mg tablet extended release 24 hr 250 mg PO BID Rx Instructions: with 500 mg; total 750 mg BID cyclobenzaprine 10 mg tablet 10 mg PO TID PRN (Reason: muscle spasm) Qty: 15 0RF ibuprofen 600 mg tablet 600 mg PO Q8H PRN (Reason: pain) Qty: 20 0RF lidocaine [Lidoderm] 5 % adhesive patch,medicated 1 patch topical DAILY Qty: 15 0RF Rx Instructions: leave on most painful area for up to 12 hrs acetaminophen [Tylenol] 325 mg tablet 325 mg PO QID PRN (Reason: pain) Qty: 28 0RF naproxen 500 mg tablet 500 mg PO BID 30 Days Qty: 60 3RF Print Language: Icelandic
[2024-12-25 22:38] LABS: UPreg QC Valid YES; Urine Pregnancy NEGATIVE (NEGATIVE)
[2024-12-25] MEDS: Ibuprofen 600 MG TABLET PO (22:46)
[2024-12-25 23:02] VITALS: BP 137/74; PULSE 84; RESP 14; TEMP 36.5; O2SAT 99
[2024-12-25 23:52] VITALS: BP 137/74; PULSE 84; RESP 14; TEMP 36.5; O2SAT 99
== END 2024-12-25 23:53 | disposition home or self-care (01) ==
PROVIDERS: Emergency Provider Emergency Medicine; PCP Internal Medicine
DX: M54.6 Pain in thoracic spine (principal)
CPT/HCPCS: 71046; 81025; 99283; 99284

== ENCOUNTER → 2024-12-25 22:06 | Outpatient (BNV) | payer MEDICAID, SELFPAY | PROVIDERS: Emergency Provider Emergency Medicine; PCP Internal Medicine; Visit Provider Radiology Diagnostic Radiology | DX: M54.6 Pain in thoracic spine (principal) | CPT/HCPCS: 71046 ==

== ENCOUNTER 2025-03-19 09:56 | Outpatient (REF) | payer MEDICAID, SELFPAY ==
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
--- OUTSIDE RECORDS SUMMARY | 2025-03-19 10:17 | XMS_ITS | Encounter Summary ---
Author Organization [employer] Address [address] [facility] [address] [place] [address] Care Team Providers Care Waste Collector Name Role Phone Kath Venegas MD Primary Care Provide r Reason for Visit * Reason Comments Med Refill Encounter Details Date Type Department Care Team ([facility] st Contact Info) Description 02/29/2024 Refill [facility] MEDICINE [address] [place], [place] [phone] Kath Venegas MD [address] [place] [address] Seizure disorder (CMS/HCC); Heartburn Social History Tobacco [...] Care Team (Late st Contact Info) Description 07/29/2025 9:00 AM EDT Office Visit [facility] OPTOMETRY [address] [place], [place] [phone] Aquilino, Dayami, OD [address] [place] [address] documented as of this encounter Visit Diagnoses Diagnosis Seizure disorder (CMS/HCC) Unspecified epilepsy without mention of intractable epilepsy Heartburn documented in this encounter Care Teams Waste Collector Relationship Specialty Start Date End Date Kath Venegas MD [address] [place] [address] PCP - General Family Medicine 06/04/19 Zeny Mckenzie Solution Professional 03/03/24 documented as of this encounter
--- OUTSIDE RECORDS SUMMARY | 2025-03-19 10:17 | XMS_ITS | Encounter Summary ---
Author Organization [employer] Address [address] [facility] [address] [place] [address] Care Team Providers Care Bead Worker Sewing Name Role Phone Kath Venegas MD Primary Care Provide r Encounter Details Date Type Department Care Team (Latest Contact Info) Description 03/19/2025 Travel Social History Tobacco Use Types Packs/Day [...] Description 07/29/2025 9:00 AM EDT Office Visit [facility] OPTOMETRY [address] [place] [address] Dayami Rolle, OD [address] [place] [address] documented as of this encounter Visit Diagnoses Not on filedocumented in this encounter Care Teams Bead Worker Sewing Relationship Specialty Start Date End Date Kath Venegas MD [address] [place] [address] PCP - General Family Medicine 06/04/19 Zeny Mckenzie It Integration Architect 03/03/24 documented as of this encounter
--- OUTSIDE RECORDS SUMMARY | 2025-03-19 10:17 | XMS_ITS | Encounter Summary ---
Author Organization [employer] Address [address] [facility] [address] [place] [address] Care Team Providers Care Squad Boss Name Role Phone Kath Venegas MD Primary Care Provide r Reason for Visit * Reason Onset Date Comments Chart Prep 03/18/2025 Encounter Details Date Type Department Care Team ([facility] Contact Info) Description 03/18/2025 Telephone [facility] MEDICINE [address] [place], [place] [phone] Kath Venegas MD [address] [place] [address] Chart Prep Social History Tobacco Use Types Packs/Day Years [...] encounter Miscellaneous Notes * Telephone Encounter - Jung Rivera [place] - 03/18/2025 10:26 AM EDT Chart Prep Labs: Not done she will get labs done on 03/19/2025 because she has to work . Images: done Referrals: complete Vaccines due: Covid, PCV20, Hep B, and Hep A Screenings: foot exam Overdue care gaps: Glucose, TAO-7, and Disability screen documented in this encounter Plan of Treatment Upcoming Encounters Date Type Department Care Team (Late st Contact Info) Description 07/29/2025 9:00 AM EDT Office Visit [facility] OPTOMETRY [address] [place] [address] Aquilino, Dayami, OD [address] [place] [address] documented as of this encounter Visit Diagnoses Not on filedocumented in this encounter Care Teams Squad Boss Relationship Specialty Start Date End Date Kath Venegas MD [address] [place] [address] PCP - General Family Medicine 06/04/19 Zeny Mckenzie Store Hand 03/03/24 documented as of this encounter
--- OUTSIDE RECORDS SUMMARY | 2025-03-19 10:18 | XMS_ITS | Encounter Summary ---
Author Organization [employer] Address [address] [place] [address] [address] [place] [address] Care Team Providers Care Science Interpreter Name Role Phone Kath Venegas MD Primary Care Provide r Reason for Visit * Reason Onset Date Comments Appointment Request 01/24/2023 Encounter Details Date Type Department Care Team ([facility] st Contact Info) Description 01/24/2023 Telephone [facility] MEDICINE [address] [place] [address] Kath Venegas MD [address] [place] [address] Appointment Request Social History Tobacco Use Types [...] requesting to r/s appt on 01/24/23 ( [facility] 11/25/2022 01/04/2023 ) Please contact pt at [phone] documented in this encounter Plan of Treatment Upcoming Encounters Date Type Department Care Team (Late st Contact Info) Description 07/29/2025 9:00 AM EDT Office Visit [facility] OPTOMETRY [address] [place] [address] Dayami Rolle, OD [address] [place] [address] documented as of this encounter Visit Diagnoses Not on filedocumented in this encounter Care Teams Science Interpreter Relationship Specialty Start Date End Date Kath Venegas MD [address] [place] [address] PCP - General Family Medicine 06/04/19 Zeny Mckenzie Installer Technician 03/03/24 documented as of this encounter
--- OUTSIDE RECORDS SUMMARY | 2025-03-19 10:18 | XMS_ITS | Clinical Summary ---
Author Organization [employer] Address [address] [place] [address] 7[address] [place] [address] Care Team Providers Care Milk Route Supervisor Name Role Phone Kath Venegas MD Primary [...] complication, without long-term current use of insulin ([facility]) 1 each by Other route [...] 500 MG 24 hr tabletIndicatio ns:Seizure disorder ([facility]) Take 1 tablet by mouth [...] complication, without long-term current use of insulin (CMS/[facility]) USE 1 STRIP IN AM TO CHECK BLOOD SUGAR ONCE A DAY 100 strip 3 09/16/20 24 Active ferrous sulfate 325 (65 Fe) MG tablet TAKE 1 TABLET BY MOUTH EVERY OTHER DAY 45 tablet 1 09/22/20 24 Active metFORMIN (Glucophage) 500 MG tabletIndicatio ns:Type 2 diabetes mellitus with hyperglycemia, without long-term current use of insulin (CMS/[facility]) TAKE 1 TABLET BY MOUTH [...] BY MOUTH EVERYDAY AT BEDTIME 90 tablet 03/09/20 25 Active amitriptyline (Elavil) 10 MG tabletIndicatio ns:Chronic migraine without aura without status migrainosus, not intractable TAKE 1 TABLET BY MOUTH EVERYDAY AT BEDTIME 90 tablet 12/04/19 25 025 Discontinued Active Problems Problem Noted Date Diagnosed Date Dysmenorrhea 12/11/2024 Assessment & Plan (12/11/2024 11:31 AM EST): Patient today reassured She may take ibuprofen as needed for pain I will refer her to gynecology for follow-up of her symptoms Metrorrhagia 12/11/2024 Elevated blood pressure reading 12/11/2024 Assessment & Plan (12/11/2024 11:33 AM EST): I advised low-sodium diet and weight reduction I instructed patient to log her blood pressure at home and come back for nurse visit in 2 weeks, plan is if blood pressure is still not at goal to initiate blood pressure medication amlodipine 2.5 mg daily Viral upper respiratory infection 11/25/2024 Assessment & [...] followup needed fro hospital stay, followup with [facility] neuro, continue to take Depakote Chronic bilateral low back pain with bilateral s ciatica 02/21/2023 Assessment & Plan (10/31/2023 10:05 AM EST): C/w with pain medications PRN Referral to orthopedics [facility] done today Visit for preventive health examination [...] RO PCOS. Patient will get labs from SCRUBBER OPERATOR done. Keep menstruation dairy. FU w [facility] OPER[facility] Type 2 diabetes mellitus wit h hyperglycemia, without long-term current use of insulin 10/26/2022 Assessment & Plan (12/11/2024 11:28 AM EST): Diabetes is: controlled - Lab Results Component Value Date HGBA1C 6.6 (A) 12/11/2024 HGBA1C 6.4 (A) 11/10/2024 HGBA1C 6.1 (A) 07/14/2024 - Lab Results Component Value Date MICROALBUR 25.0 10/08/2023 CREATININE 0.55 10/24/2024 -Changes: Extensive counseling about diabetic diet done today - Diabetic eye exam: Up-to-date - Diabetic foot exam: Pending - Continue lifestyle modifications - Continue current medications - Follow up: 3 months Assessment & Plan (11/10/2024 2:34 PM EST): [...] Encounters Date Type Department Care Team Description 03/19/2025 Travel 03/18/2025 Telephone [facility] MEDICINE [address] [place] [address] Kath Venegas MD Chart Prep 03/11/2025 Patient Outreach [facility] MEDICINE [address] [place] [phone] Kath Venegas MD Pre-visit Planning (SDOH screening completed on 11/28/2024) 03/08/2025 Refill [facility] MEDICINE [address] [place] [address] Kath Venegas MD Chronic migraine without aura without status migrainosus, not intractable 01/09/2025 Population Health Risk Score [facility] Department [address] [phone] Provider, Population Health Generic 12/26/2024 Patient Outreach [facility] MEDICINE [address] [place] [address] Kath Venegas MD Transition Of Care (Tcm) 12/25/2024 Orders Only [facility] External Provider, [facility] from Last 3 Months Immunizations Immunization Administration Dates Next Due INFLUENZA VACCINE QUADRIVALE [...] Sign Reading Time Taken Comments Blood Pressure 142/86 12/11/2024 11:24 AM EST Pulse 78 12/11/2024 10:42 AM EST Temperature 36.5 ??C (97.7 ??F) 12/11/2024 10:[address] Respiratory Rate 21 12/11/2024 10:42 AM EST Oxygen Saturation 99% 12/11/2024 10:42 AM EST Inhaled Oxygen Concentration - - Weight 79.2 kg (174 lb 9 oz) 12/11/2024 10:42 AM EST Height 152.4 cm (5') 12/11/2024 10:42 AM EST Body Mass Index 34.09 12/11/2024 10:42 AM EST Plan of Treatment Upcoming Encounters Date Type Department Care Team (Late st Contact Info) Description 07/29/2025 9:00 AM EDT Office Visit [facility] OPTOMETRY [address] [place], [place] [phone] Dayami Rolle, OD [address] [place] [address] Health Maintenance Due Date Last Done Comments Disability Screening 1991 Diabetes: Foot Exam 2001 Hepatitis A Vaccines (1 of 2 - Risk 2-dose series) 2010 Hepatitis B Vaccines (1 of 3 - 19+ 3-dose series) 2010 Pneumococcal Vaccine: Pediatrics (0 to 5 Years) and At-Risk Patients (6 to 49) Years) (1 of 2 - PCV) 2010 COVID-19 Vaccine ( - season) 2024 05/27/2021, 05/06/2021 Diabetes: Urine Protein Screening 10/08/2024 10/08/2023 Lipid Panel 10/08/2024 10/08/2023, 10/27/2021 Depression Screening 04/10/2025 04/10/2024, 04/10/20 24 Diabetes: Hemoglobin A1C 06/10/2025 025, 11/10/2024, 07/14/2024, Additional history exists Family Planning (PISQ) 06/26/2025 06/26/2024 SDOH Screening 11/28/2025 11/28/2024 Alcohol/Substance Use Screening 12/11/2025 12/11/2024 Tobacco Screening 12/11/2025 12/11/2024 Eye Exam 12/20/2025 12/20/2023, 11/30, 12/20/2023, Additional [...] patient's age to complete this topic Meningococcal B Vaccine Aged Out No l onger eligible based on patient's age to complete [...] Procedure Name Priority Date/Time Associated Diagnosis Comments XR CHEST 2 VIEWS Routine 12/25/2024 10:5 4 PM EST HCG, QL, URINE Routine 12/25/2024 10:28 PM EST POCT GLYCATED HEMOGLOBIN, TOTAL Routine 12/11/2024 10:55 AM EST Type 2 diabetes mellitus with hyperglycemia, without long-term current use of insulin ([facility]) ALBUMIN, RANDOM URINE W/CREATININE Routine 10/08/2023 9:06 AM EST Type 2 diabetes mellitus with hyperglycemia, without long-term current use of insulin ([facility]) LIPID PANEL, STANDARD Routine 10/08/2023 9:04 AM [...] Recently Relevant to Health Maintenance Results * XR Chest 2 Views (12/25/2024 10:54 PM EST) Anatomical Region Laterality Modality Chest Radiographic Lesvia ging 12/25/2024 10:5 4 PM EST Narrative 12/25/2024 10:56 PM EST ? [facility] ?[address] ?[place] [address] ?XRay Report ? Signed ? Patient: Jerica Calix ?MR#: [id number] ?? [id number] ? : 1990 ?Acct:[id number] ? Age/Sex: 34 / F ?ADM Date: 12/25/24 ? Loc: HO.ED ? Attending Dr: ? Ordering Physician: Luisa Crisostomo MD ?? Date of Service: 12/25/24 ?? Procedure(s): XR chest 2V ?? Accession Number(s): [id number] ? cc: Kath Venegas MD; Luisa Crisostomo MD ? CLINICAL HISTORY: mid ?? Thoracic spine pain, no trauma ? 2 view chest x-ray ? Comparison: CR/SR - XR CHEST 1V - 11/04/24 12:21 EST ?? CR/SR - XR CHEST 2V - 08/31/23 09:54 EDT ? Findings: ?? The lungs are clear. ?? Normal size heart. ?? No acute fracture. ? IMPRESSION: ?? 1. No acute findings. ? This document has been electronically signed by: Fercho Granger MD on ?? 12/25/2024 22:54:58 ? Dictated By: ?Fercho Granger MD ? Signed By: ?<Electronically signed by Fercho Granger MD in OV> ?12/25/242255 ? DD/ 53 ? TD/TT: 12/25/242253 ? Oil Well Fishing Tool Operator: ? Procedure Note Donotpeterinterpreter, Image - 12/25/[address] [address] XRay Report Signed Patient: Jerica CalixMR#: [id number] : 1990Acct:[id number] Age/Sex: 34 / FADM Date: 12/25/24 Loc: HO.ED Attending Dr: Ordering Physician: Luisa Crisostomo MD Date of Service: 12/25/24 Procedure(s): XR chest 2V Accession Number(s): [id number] cc: Kath Venegas MD; Luisa Crisostomo MD CLINICAL HISTORY: mid Thoracic spine pain, no trauma 2 view chest x-ray Comparison: CR/SR - XR CHEST 1V - 11/04/24 12:21 EST CR/SR - XR CHEST 2V - 08/31/23 09:54 EDT Findings: The lungs are clear. Normal size heart. No acute fracture. IMPRESSION: 1. No acute findings. This document has been electronically signed by: Fercho Granger MD on 12/25/2024 22:54:58 Dictated By: Fercho Granger MD Signed By: <Electronically signed by Fercho Granger MD in OV> 12/25/242255 DD/ 53 TD/TT: 12/25/242253 Oil Well Fishing Tool Operator: [facility] External Provider IMG XR PROCEDURES Final Result * HCG, Qualitative, Urine (12/25/2024 10:28 PM EST) Urine NEGATIVE NEGATIVE [facility] Comment:This test was develo ped to detect early . Falsenegative results may occur after the 5th - 7th week ofpregnancy when using this test method. If clinicallyindicated, consider a serum hCG. 12/25/2024 10:2 8 PM EST 12/25/2024 10:33 PM EST us Generic External Data Provider LAB URINE ORDERAB LES Final Result [facility] [address] [place] [phone] * (ABNORMAL) POCT HGB A1C (12/11/2024 10:55 AM EST) Hemoglobin A1C 6.6(A) 4.0 - 6.0 % QC Media Lot # [id number] Lot# Expiration Date Blood 12/11/2024 10:5 5 AM EST us Kath Carey MD POINT OF CARE TEST EN TER/EDIT ORDERABLES Final Result * Albumin, Random Urine W/Creatinine (10/08/2023 9:06 AM EST) Creatinine, Urine 377.21 mg/dL [facility] Microalbumin Urine 25.0 mg/L [facility] Microalbum Creatinine Ratio Ur 6.6 <30 ug/mg cr [facility] Comment:Albumin/Creatinine R atio Reference Ranges: Normal: < 30 ug/mg creatinine Microalbuminuria: 30 - 300 ug/mg creatinineClinical Albuminuria: > 300 ug/mg creatinine Urine (Urine, Random) 10/08/2023 9:06 AM EST 10/08/2023 11:51 AM EST us Kath Carey MD LAB URINE ORDERABLES Final Result [facility] [address] [place] [phone] * (ABNORMAL) Lipid Panel, Standard (10/08/2023 9:04 AM EST) Triglycerides 134 <150 mg/dL [facility] Comment:Desirable Triglyceri de: less than 150 mg/dLBorderline High Triglyceride 150-199 mg/dLHigh Triglyceride: 200-499 mg/dLVery High Triglyceride: greater than or equal to 5OO mg/dL Cholesterol 192 <200 mg/dL [facility] Comment:Desirable Cholestero l: less than 200 mg/dLBorderline High Cholesterol: 200-239 mg/dLHigh Cholesterol: greater than 239 mg/dL LDL Cholesterol Calculated 134(H) <100 mg/dL [facility] Comment:Desirable LDL: less than 100 mg/dLNear Optimal/Above Optimal LDL: 110- 129 mg/dLBorderline High LDL: 130-159 mg/dLHigh LDL: 160-189 mg/dLVery High LDL: greater than or equal to 190 mg/dL HDL Cholesterol 32(L) >40 mg/dL [facility] Comment:Desirable HDL: great er than 40 mg/dL Note: This HDL assay may give artificially low results in patients with liver disease. Blood Venous blood specimen / Unknown 10/08/2023 9:04 AM EST 10/08/2023 11:16 AM EST Kath Carey MD LAB BLOOD ORDERABLES Final Result [facility] [address] [place] [address] [phone] * (ABNORMAL) Hepatitis Panel, General (10/26/2022 11:26 AM EST) Hepatitis A Antibody Total REACTIVE( A) NON-REACT [facility] Comment: For additional information, please refer to http://education.Brandwatch/faq/LDW820 (This link is being provided for informational/ educational purposes only.) Hepatitis B Surface Antibody QL REACTIVE( A) NON-REACT [facility] [employer] Hepatitis B Surface Ag NON-REACT [facility] NON-REACT [facility] [employer] Hepatitis B Core Antibody Total NON-REACT [facility] NON-REACT [facility] [place] [employer] Hepatitis C Antibody NON-REACT [facility] NON-REACT [facility] [employer] Index 0.17 <1.00 [facility] [employer] Comment: HCV antibody was non-reactive. There is no laboratory evidence of HCV infection. In most cases, no further action is required. However, if recent HCV exposure is suspected, a test for HCV RNA (test code 04128) is suggested. For additional information please refer to http://StarsVu.Brandwatch/faq/NZS63k3 (This link is being provided for informational/ educational purposes only.) 10/26/2022 11:2 6 AM EST 10/26/2022 11:27 AM EST Narrative [facility] - 10/31/2022 11:45 PM EST FASTING:NO FASTING: NO us Cheyenne Otto MD LAB BLOOD ORDERABLES Fin al Result [facility] [address] [facility] [place] [address] [facility] [place] [employer] [address] [facility], ([address]) [place] [address] * HIV-1/2 Antigen and Antibodies, Fourth Generation, with Reflexes (09/28/2022 8:57 AM EST) HIV Antigen/Antibody, 4th Generation NON-REAC TIVE NON-REAC TIVE [facility] [place] [employer] Comment: HIV-1 antigen and HIV-1/HIV-2 antibodies were [...] ?? For additional information please refer to http://StarsVu.Brandwatch/faq/UNM901 (This link is being provided for informational/ educational purposes only.) The performance of this assay has not been clinically validated in patients less than 2 years old. 09/28/2022 8:57 AM EST 09/28/2022 8:57 AM EST Neelima Ramosmary CN LAB BLOOD ORDERABLES Kajal bora Result [facility] [address] [place] [address], [place] [address] [facility] [address], [place] [address] * THINPREP TIS PAP AND HPV mRNA E6/E7, CT/NG, TRICH (08/30/2022 10:40 AM EDT) Chlamydia trachomatis RNA, TMA, Urogenital NOT DETECTED NOT DETECTED [facility] Clinical Information: None given [facility] COMMENT SEE COMMENT KATTY D [employer] Comment: The analytical performance characteristics of this assay, when used to test SurePath(TM) specimens have been determined by [facility]. The modifications have not been cleared or approved by the FDA. This assay has been validated pursuant to the CLIA regulations and is used for clinical purposes. ?? For additional information, please refer to https://education.Brandwatch/faq/ZCP939 (This link is being provided for information/ educational purposes only.) ?? COMMENT SEE COMMENT KATTY Perez [facility] Comment: EXPLANATORY NOTE: ? The Pap is [...] been evaluated with computer assisted technology. CONVERTED [facility] Math Tutor: SEE COMMENT [facility] Comment: ED, CT(ASCP) CT screening location: ?? [facility] ?? [address] [place] [address] ?? [place], [place] [address] HPV nRNA E6/E7 Not Detected Not Detected [facility] Comment: Methodology: Frame Coverer-Mediated Amplification This assay detects E6/E7 viral messenger RNA (mRNA) from 14 high-risk HPV types (16,18,31,33,35,39,45,51,52,56,58,59,66,68). ? Cervical sources are required for HPV testing. If a vaginal source from a patient who has had a total hysterectomy with removal of cervix was ?? submitted, please contact the testing laboratory for alternative testing options. ?? For additional information, please refer to http://StarsVu.Brandwatch/faq/BHR234n1 (This link if provided for information/ educational [...] of this assay have been determined by [facility]. The modifications have not been cleared or approved by the FDA. This assay has been validated pursuant to the CLIA regulations and is used for clinical purposes. ?? For additional information, please refer to http://StarsVu.Brandwatch/ faq/Trichomonastma (This link is being provided for information/ educational purposes only.) ?? 08/30/2022 10:4 0 AM EDT Ne[facility] MORALES LAB PATHOLOGY ORDERABLES Final Result Performing Organization Address City/[facility]/ZIP Co de Phone Number [facility] * Pap Smear (08/30/2022 12:00 AM EDT) Swab Ne[facility]ima MORALES LAB CYTOLOGY ORDERABLES F inal Result [facility] [address] [place] [address] [address], [facility], [place] [address] from Last 3 Months or Most Recently Relevant to Health Maintenance Insurance [facility] C3 Care Teams Milk Route Supervisor Relationship Specialty Start Date End Date Kath Venegas MD [address] [place] [phone] PCP - General Family Medicine 06/04/19 Zeny Mckenzie Loan Coordinator 03/03/24
[2025-03-19 11:45] LABS: Creatinine Urine 109.42 mg/dL
[2025-03-19 12:42] LABS: Alanine Aminotransferase 132 U/L (0-31); Albumin Level 4.6 g/dL (3.5-5.0); Alkaline Phosphatase 102 U/L (39-117); Anion Gap 11 (12-20); Aspartate Amino Transferase 70 U/L (5-31); Bilirubin Total 0.4 mg/dL (0.0-1.0); Blood Urea Nitrogen 14 mg/dL (9-16); Calcium 9.5 mg/dL (8.4-10.2); Carbon Dioxide 26 mmol/L (22-29); Chloride 108 mmol/L (96-108); Cholesterol 183 mg/dL (<200); Estimated Glomerular Filt Rate > 60; Glucose Random 146 mg/dL (60-115); HDL Cholesterol 39 mg/dL (>40); LDL Cholesterol Calculated 123 mg/dL (<100); Sodium 141 mmol/L (135-145); Total Protein 7.9 g/dL (6.5-8.0); Triglycerides 105 mg/dL (<150)
== END 2025-03-19 09:57 | disposition home or self-care (01) ==
LOC: HO.HHCL 09:56
PROVIDERS: Visit Provider Internal Medicine
DX: E11.65 Type 2 diabetes mellitus with hyperglycemia (principal)
CPT/HCPCS: 36415; 80053; 80061; 82043; 82570

== ENCOUNTER 2025-04-07 09:01 | Outpatient (REF) | payer MEDICAID, SELFPAY ==
--- NOTE | ~2025-04-07 | US_ITS ---
EXAMINATION: US ABDOMEN HISTORY: worsening elevated LFTs TECHNIQUE: Real-time grayscale ultrasound imaging of the abdomen was performed and images were reviewed. COMPARISON: Comparison is made with the prior examination dated 07/03/2019. FINDINGS: Liver: The right lobe of the liver measures 18.1 cm in size. The left lobe of the liver measures 11.0 cm in size. The liver demonstrates increased echotexture, consistent with steatosis. No focal mass or intrahepatic biliary ductal dilatation is identified. There is normal hepatopedal flow in the portal vein. Gallbladder and biliary tree: The gallbladder is unremarkable, without evidence of calculi, wall thickening, or pericholecystic fluid. There is no sonographic Mendieta sign. The common bile duct is normal in caliber measuring 4 mm. Kidneys: The right kidney measures 11.0 cm in length. The left kidney measures 10.9 cm in length. The kidneys are unremarkable, without evidence of masses, hydronephrosis, or calculi. Pancreas: The pancreatic head, neck, and body are unremarkable. The pancreatic tail is obscured by bowel gas. Spleen: The spleen is normal in size and contour, measuring 9.1 cm in length. A 12 mm splenule is also noted. Abdominal aorta and inferior vena cava: The visualized portions of the abdominal aorta and inferior vena cava are normal in caliber. There is no free fluid in the abdomen. US/US abdomen complete IMPRESSION: Hepatomegaly and hepatic steatosis. Electronically signed by: Trevon Hong MD 04/07/2025 10:16 AM EDT
--- OUTSIDE RECORDS SUMMARY | 2025-04-07 09:39 | XMS_ITS | Encounter Summary ---
Author Organization [employer] Address [address] [facility] [address] [place] [address] Care Team Providers Care Simulation Specialist Name Role Phone Kath Venegas MD Primary Care Provide r Reason for Visit * Reason Comments Med Refill Encounter Details Date Type Department Care Team ([facility] st Contact Info) Description 02/29/2024 Refill [facility] MEDICINE [address] [place], [place] [phone] Kath Venegas MD [address] [place] [address] Seizure disorder (CMS/HCC); Heartburn Social History Tobacco [...] Care Team (Late st Contact Info) Description 04/23/2025 2:00 PM EDT Clinical Support [facility] MEDICINE [address] [place] [phone] 06/23/2025 10:45 AM EDT Office Visit [facility] MEDICINE [address] [place] [phone] Kath Venegas MD [address] [place] [address] 07/29/2025 9:00 AM EDT Office Visit [facility] OPTOMETRY [address] [place] [address] Aquilino, Dayami, OD [address] [place] [address] documented as of this encounter Visit Diagnoses Diagnosis Seizure disorder ([facility]) Unspecified epilepsy without mention of intractable epilepsy Heartburn documented in this encounter Care Teams Simulation Specialist Relationship Specialty Start Date End Date Kath Venegas MD [address] [place] [address] PCP - General Family Medicine 06/04/19 Zeny Mckenzie Aircraft Engine Cylinder Mechanic 03/03/24 documented as of this encounter
== END 2025-04-07 09:02 | disposition home or self-care (01) ==
LOC: HO.US 09:01
PROVIDERS: PCP Internal Medicine; Visit Provider Internal Medicine
DX: R79.89 Other specified abnormal findings of blood chemistry (principal)
CPT/HCPCS: 76700

== ENCOUNTER → 2025-04-07 09:06 | Outpatient (BNV) | payer MEDICAID, SELFPAY | PROVIDERS: PCP Internal Medicine; Visit Provider Radiology Diagnostic Radiology | DX: K76.0 Fatty (change of) liver, not elsewhere classified (principal); R16.0 Hepatomegaly, not elsewhere classified | CPT/HCPCS: 76700 ==

== ENCOUNTER 2025-05-22 12:09 | Emergency (ER) | payer MEDICAID, SELFPAY ==
--- NOTE | ~2025-05-22 | XR_ITS ---
EXAMINATION: XR CHEST 2 VIEWS HISTORY: cough COMPARISON: Comparison is made with the prior examination dated 12/25/2024. FINDINGS: PA and lateral views of the chest are submitted. The lungs are expanded and clear. There is no pleural effusion, pneumothorax, or pulmonary vascular congestion. The heart is normal in size. The bones are intact. XR/XR chest 2V IMPRESSION: No acute cardiopulmonary abnormality. Electronically signed by: Trevon Hong MD 05/22/2025 12:45 PM EDT
[2025-05-22 12:17] VITALS: BP 140/77; PULSE 110; RESP 20; TEMP 37.1; O2SAT 97; BMI 29.4
--- NOTE | 2025-05-22 12:17 | ED_ITS ---
HPI - General Adult General Chief complaint: Upper Respiratory Symptoms Stated complaint: Body Pain Time Seen by Provider: 05/22/25 13:59 Source: patient, RN notes reviewed and old records reviewed Mode of arrival: ambulatory Limitations: no limitations History of Present Illness ED Provider: Matthew HPI narrative: 34-year-old female presents for evaluation of cough, body aches and sore throat. Her symptoms started yesterday. Denies any sick contacts. She denies any recent travel. She does have a history of diabetes and epilepsy. She reports subjective fevers and chills but did not take her temperature. No other complaints or concerns with a 10 Related Data Home Medications ?Medication ?Instructions ?Recorded ?Confirmed metformin 500 mg tablet 500 mg PO BIDWM 07/30/2302/19 divalproex 250 mg tablet,extended 250 mg PO BID 10/01/24 release 24 hr divalproex 500 mg tablet,extended 500 mg PO BID 10/01/24 release 24 hr Previous Rx's ?Medication ?Instructions ?Recorded cyclobenzaprine 10 mg tablet 10 mg PO TID PRN muscle s pasm #15 07/18/24 tabs acetaminophen 500 mg tablet 500 mg PO Q6H PRN fever or pain 09/03/24 #20 tabs ibuprofen 600 mg tablet 600 mg PO Q8H PRN pain #14 t abs 09/03/24 ibuprofen 600 mg tablet 600 mg PO Q8H PRN pain #20 t abs 09/06/24 lidocaine 5 % topical patch 1 patch topical DAILY #15 ea 09/06/24 (Lidoderm) naproxen 500 mg tablet 500 mg PO BID PRN pain #14 t abs 09/11/24 naproxen 500 mg tablet 500 mg PO BID 30 days #60 ta bs 10/01/24 meclizine 25 mg tablet 25 mg PO TID PRN dizziness # 20 tabs 10/19/24 ondansetron 4 mg disintegrating 4 mg PO Q8H PRN nausea and 10/19/24 tablet vomiting #20 tabs acetaminophen 325 mg tablet 325 mg PO QID PRN pain #28 tabs 11/04/24 (Tylenol) meclizine 25 mg tablet (Dramamine 25 mg PO TID PRN diz ziness #20 tabs 12/09/24 Less Drowsy) ibuprofen 600 mg tablet 600 mg PO TID PRN pain #10 t abs 12/25/24 Allergies Allergy/AdvReac Type Severity Reaction Status Date / Time Iodinated Contrast Media Allergy Intermediate Facial Verified 05/22/25 12:18 Swelling clindamycin (CLINDAMYCIN) Allergy Unknown ANAPHYLAXIS Verified 05/22/25 12:18 latex Allergy Itching Verified 05/22/25 12:18 Review of Systems Constitutional: Constitutional: Reports body ache(s), Reports chills, Reports fever(s) and Reports headache(s) Eyes: Eyes: Denies blind spots, Denies blurry vision and Denies exophthalmos ENT: Denies dry mouth, Reports headache(s) and Reports sore throat Cardiovascular: Cardiovascular: Denies chest pain, Reports dyspnea and Reports dyspnea on exertion Respiratory: Respiratory: Reports change in phlegm color, Reports chest congestion, Reports cough, Denies hemoptysis, Denies pain on inspiration, Reports pain with cough, Reports dyspnea and Reports dyspnea on exertion Gastrointestinal: Gastrointestinal: Denies abdominal pain, Denies nausea and Denies vomiting Musculoskeletal: Musculoskeletal: Denies back pain Integumentary/Breasts: Skin/Breast: Denies rash Neurologic: Reports headache(s) [facility] Past Medical History Medical History Chronic allergic rhinitis Otitis media Hypoxia Viral pneumonia Infection due to human metapneumovirus (hMPV) Diabetes mellitus Epilepsy Surgical History Hx of cholecystectomy Social History Social History Household Members: Spouse and Children Housing: Apartment Do you presently have visiting nurse or other home services: No Alcohol intake: current Alcohol intake frequency: holidays/special occasions only Patient Tobacco Use Status: Never used Tobacco Advance Directives: Yes Advance Directives on File: Yes Advance Directives Date on File: 08/17/23 Do you have a plan to hurt others: No Plan service: No Current occupational status: employed 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 Physical Exam ED Vital Signs: Vital Signs - 24 hr 05/22/25 12:17 05/22/25 14:42 Temperature 98.8 F 98.8 F Pulse Rate 110 H 110 H Respiratory Rate 20 20 Blood Pressure 140/77 H 140/77 H Pulse Oximetry 97 97 Oxygen Delivery Method Room Air Room Air BMI result Body Mass Index 29.4 Const General: healthy appearing, comfortable, no acute distress, alert and awake Nutritional Appearance: well nourished Orientation/consciousness: patient oriented x3 HENMT Head: Yes normocephalic and Yes atraumatic Throat: Yes posterior oropharynx normal Neck Neck: Yes full ROM Resp Effort & Inspection: normal respiratory effort, able to speak in complete sentences, no audible wheezes and not labored Auscultation: clear to auscultation bilaterally Cardio Rate: regular rate Rhythm: regular rhythm GI Inspection: No distended Palpation (GI): Soft to palpation, not firm, nontender, no guarding and not rigid Skin General skin exam: elasticity normal Neuro General: patient oriented x3 Cranial nerves: Yes Bilaterally intact EOM present Cognition (Neuro): normal cognition Extrem Other: Moving all extremities well without any obvious deformities Course Course Course Narrative: RME, this is a rapid medical exam performed by Andrew Castro please refer to primary provider for complete H&P- 34 year old female presents for evaluation of headache, body aches, cough since yesterday. Plan for swabs and a chest x-ray Medical Decision Making Medical Decision Making [facility] Narrative: 34-year-old female presents for evaluation of flu-like symptoms. Symptoms started yesterday. Plan for chest x-ray, viral swabs. She is slightly tachycardic but well-appearing and she is not hypoxic. No fever. She does not meet sepsis criteria Differential Diagnosis Differential Diagnoses: The differential diagnosis associated with the presentation includes Influenza COVID-19 Upper respiratory infection Strep pharyngitis Bronchitis Pneumonia Lab Data [facility] Lab Attestation statement: I reviewed the patient's lab results. The patient is positive for COVID-19, she is not hypoxic in his well-appearing, she is not septic. She is stable for symptomatic care at home Labs: Lab Results 05/22/25 Range/Units 13:39 Influenza Type A (PCR) NEGATIVE (Negative) Influenza Type B (PCR) NEGATIVE (Negative) RSV RNA Qual (PCR) NEGATIVE (Negative) SARS-CoV-2 RNA (RT-PCR) POSITIVE A (Negative) S. pyogenes GrpA YIN Negative (Negative) Independent Interpretation I performed an independent interpretation of an: Plain X-Ray Interpretation: No focal infiltrates or effusions Radiology Impression Discussion of test interpretation with radiology: I have reviewed the radiologis t's reading. Radiologist Impression: FINDINGS: PA and lateral views of the chest are submitted. The lungs are expanded and clear. There is no pleural effusion, pneumothorax, or pulmonary vascular congestion. The heart is normal in size. The bones are intact. XR/XR chest 2V IMPRESSION: No acute cardiopulmonary abnormality. Electronically signed by: Trevon Hong MD 05/22/2025 12:45 PM EDT RP External Record Review External record reviewed: Inpatient record, Outpatient record, Prior outpatient labs and Prior outpatient radiology Prescription Management I considered prescription management with: Antiviral and Antibiotic Chronic Conditions Patient?s care impacted by: Diabetes Discharge Plan Discharge Clinical Impression: COVID Patient Disposition: Home, Self-Care Instructions: COVID-19 (Coronavirus Disease 2019) (ED) Additional Instructions: You tested positive for COVID-19. Your chest x-ray was clear. You may use ibuprofen or Tylenol for fevers and body aches. You may use [id number] cough medicine Hydrate well Follow-up with your primary doctor, return for new or worsening symptoms Prescriptions: No Action ibuprofen 600 mg tablet 600 mg PO Q8H PRN (Reason: pain) Qty: 14 0RF acetaminophen 500 mg tablet 500 mg PO Q6H PRN (Reason: fever or pain) Qty: 20 0RF naproxen 500 mg tablet 500 mg PO BID PRN (Reason: pain) Qty: 14 0RF ondansetron 4 mg tablet,disintegrating 4 mg PO Q8H PRN (Reason: nausea and vomiting) Qty: 20 0RF meclizine 25 mg tablet 25 mg PO TID PRN (Reason: dizziness) Qty: 20 0RF meclizine [Dramamine Less Drowsy] 25 mg tablet 25 mg PO TID PRN (Reason: dizziness) Qty: 20 0RF ibuprofen 600 mg tablet 600 mg PO TID PRN (Reason: pain) Qty: 10 0RF metformin 500 mg tablet 500 mg PO BIDWM divalproex 500 mg tablet extended release 24 hr 500 mg PO BID Rx Instructions: with 250 mg; total 750 mg BID divalproex 250 mg tablet extended release 24 hr 250 mg PO BID Rx Instructions: with 500 mg; total 750 mg BID cyclobenzaprine 10 mg tablet 10 mg PO TID PRN (Reason: muscle spasm) Qty: 15 0RF ibuprofen 600 mg tablet 600 mg PO Q8H PRN (Reason: pain) Qty: 20 0RF lidocaine [Lidoderm] 5 % adhesive patch,medicated 1 patch topical DAILY Qty: 15 0RF Rx Instructions: leave on most painful area for up to 12 hrs acetaminophen [Tylenol] 325 mg tablet 325 mg PO QID PRN (Reason: pain) Qty: 28 0RF naproxen 500 mg tablet 500 mg PO BID 30 Days Qty: 60 3RF Stand Alone Forms: Work/School Release Interventions: ED Discharge Assessment Last Done: 05/22/25 14:42 Discharge Date/Time: 05/22/25 14:45 Print Language: Lithuanian
[2025-05-22 13:56] LABS: IDNOW Serial# 55D5AD1C; Strep A Nucleic Acid Negative (Negative)
[2025-05-22 14:24] LABS: Resp Syncy Virus RNA Qual PCR NEGATIVE (Negative); SARS COV2 PCR INHOUSE POSITIVE (Negative)
[2025-05-22 14:42] VITALS: BP 140/77; PULSE 110; RESP 20; TEMP 37.1; O2SAT 97
--- OUTSIDE RECORDS SUMMARY | 2025-05-22 14:47 | XMS_ITS | Clinical Summary ---
Author Organization [facility] Address [address] [address] Phone Care Team Providers Care Service Observer Name Role Phone Pcp, Unknown Primary Care Provider Unavailabl e Allergies Active Allergy Reactions Criticality Noted Date Comments Clindamycin Hcl 09/10/2019 Medications valacyclovir HCl (VALACYCLOVIR ORAL) Take by mouth. Active Social History Tobacco Use Types Packs/Day Years Used Date Smoking Tobacco: Never Assessed Education Answer Date Recorded Are you interested in more education? Not on shauna e 02/23/2023 Are you concerned about learning? Not on file 02/23/2023 No 02/23/2023 No 02/23/2023 Digital Access Answer Date Recorded No 03/27/2023 No 03/27/2023 No 03/27/2023 Reliable internet access at home? Not on file 03/27/2023 Device with a working camera? Not on file Comments Unknown Sex and Gender Information Value Date Recorded Sex Assigned at Female 09/10/2019 10:57 AM EST Legal Sex Female 10:48 AM EST Gender Identity Female 09/10/2019 10:57 AM EST Sexual Orientation Not on file Last Filed Vital Signs Vital Sign Reading Time Taken Comments Blood Pressure 106/64 09/10/2019 1:45 PM EST Pulse 82 09/10/2019 1:45 PM EST Temperature 36.9 C (98.4 F) 09/10/2019 10:55 AM EST Respiratory Rate 19 09/10/2019 1:45 PM EST Oxygen Saturation 100% 09/10/2019 1:45 PM EST Inhaled Oxygen Concentration - - Weight 81.6 kg (180 lb) 09/10/2019 10:55 AM EST Height 162.6 cm (5' 4 ) 09/10/2019 10:55 AM EST Body Mass Index 30.9 09/10/2019 10:55 AM EST Plan of Treatment Health Maintenance Due Date Last Done Comments Adult Td,Tdap Booster 1991 DEPRESSION SCREENING 2003 SMOKING Hx and SMOKELESS TOBACCO SCREENING 2004 HEPATITIS C SCREENING 2009 HIV ONE-TIME SCREENING (18-6 5 YEARS) 2009 PAP SMEAR 2012 COVID-19 VACCINE (3 - 2023-2 5 season) 2024 05/27/2021, 05/06/2021 HEPATITIS A VACCINES Aged Out No long er eligible based on patient's age to complete this topic HIB VACCINES Aged Out No longer eligi ble based on patient's age to complete this topic MENINGOCOCCAL VACCINES (ACWY) Aged Out No longer eligible based on patient's age to complete this topic MENINGOCOCCAL VACCINES (B) Aged Out N o longer eligible based on patient's age to complete this topic PNEUMOCOCCAL VACCINES (0-49 years) Aged Out No longer eligible b ased on patient's age to complete this topic Medical Devices Not on file Insurance C3 ACO C3 ACO C3 ACO C3 ACO C3 ACO C3 ACO C3 ACO C3 ACO [facility] C3 ACO Care Teams Service Observer Relationship Specialty Start Date End Date Pcp, Unknown PCP - General 09/10/19 Additional Source Comments The information contained in this document represents components of the legal health record. It is not the complete legal health record.[facility]
--- OUTSIDE RECORDS SUMMARY | 2025-05-22 14:47 | XMS_ITS | Encounter Summary ---
Author Organization [employer] Address [address] [facility] [address] [place] [address] Care Team Providers Care Acute Care Physician Name Role Phone Kath Venegas MD Primary Care Provide r Cliff Siu RN Unavailable [phone] Halima Mckenzie Unavailable Reason for Visit * Reason Comments Med Refill Encounter Details Date Type Department Care Team (Late st Contact Info) Description 02/29/2024 Refill [facility] [address] [place], [place] [phone] Kath Venegas MD [address] [place], [place] [phone] Seizure disorder (CMS/HCC); Heartburn Social History Tobacco [...] Care Team (Late st Contact Info) Description 06/23/2025 10:45 AM EDT Office Visit [facility] [address] [place] [address] Kath Venegas MD [address] [place] [address] 07/03/2025 9:00 AM EDT Nutrition [facility]/NUTRITION [address] [place] [address] Mali Wills, COREEN [address] [place] [address] 07/29/2025 9:00 AM EDT Office Visit [facility] OPTOMET[facility] [address] [place] [address] Aquilino, Dayami, OD [address] [place] [address] documented as of this encounter Visit Diagnoses Diagnosis Seizure disorder (CMS/HCC) Unspecified epilepsy without mention of intractable epilepsy Heartburn documented in this encounter Care Teams Acute Care Physician Relationship Specialty Start Date End Date Kath Venegas MD [address] [place] [phone] PCP - General Family Medicine 06/04/19 Cliff Siu, RN [address] [place] [id number] Registered Nurse Family Medicine 04/20/25 04/20/25 Halima Mckenzie 04/20/25 04/20/25 Zeny Mckenzie Sports Marketing Coordinator 03/03/24 documented as of this encounter
--- OUTSIDE RECORDS SUMMARY | 2025-05-22 14:48 | XMS_ITS | Clinical Summary ---
Author Organization [facility] Address [address] [place] [id number] Care Team Providers Care Excelsior Cutter Name Role Phone Cheyenne Otto Primary Care Provider [phone] Allergies Active Allergy Reactions Criticality Noted Date Comments Iodinated Contrast Media 01/18/2025 Social History Tobacco Use Types Packs/Day Years [...] 81 01/18/2025 4:36 PM EDT Temperature 36.4 C (97.5 F) 01/18/2025 4:36 PM EDT Respiratory Rate 16 01/18/2025 4:36 PM EDT Oxygen Saturation 96% 01/18/2025 4:36 PM EDT Inhaled Oxygen Concentration - - Weight 80.3 kg (177 lb) 01/18/2025 2:25 PM EDT Height 152.4 cm (5') 01/18/2025 2:25 PM EDT Body Mass Index 34.57 01/18/2025 2:25 PM EDT Plan of Treatment Not on file Insurance [facility] [address] Care Teams Excelsior Cutter Relationship Specialty Start Date End Date Cheyenne Otto [address] [place] [phone] PCP - General Internal Medicine 01/18/25
== END 2025-05-22 14:45 | disposition home or self-care (01) ==
LOC: HO.ED 14:45
PROVIDERS: Physician Assistant; Emergency Provider Emergency Medicine; PCP Internal Medicine
DX: M79.10 Myalgia, unspecified site (principal); R05.9 Cough, unspecified; J02.9 Acute pharyngitis, unspecified; Z03.818 Encounter for observation for suspected exposure to other biological agents ruled out; Z79.899 Other long term (current) drug therapy
CPT/HCPCS: 71046; 87637; 87651; 99282; 99283

== ENCOUNTER → 2025-05-22 12:17 | Outpatient (BNV) | payer MEDICAID, SELFPAY | PROVIDERS: PCP Internal Medicine; Visit Provider Radiology Diagnostic Radiology | DX: R05.9 Cough, unspecified (principal) | CPT/HCPCS: 71046 ==

== ENCOUNTER 2025-08-11 07:39 | Emergency (ER) | payer MEDICAID, SELFPAY ==
--- NOTE | ~2025-08-11 | XR_ITS ---
EXAMINATION: XR CHEST CLINICAL INFORMATION: cough, SOB COMPARISON: 05/22/2025. TECHNIQUE: 2 views of the chest were obtained. FINDINGS: The cardiac, hilar, and mediastinal contours are normal. The lungs are clear bilaterally. There is no pneumothorax or pleural effusion. There is no focal osseous or soft tissue abnormality. XR/XR chest 2V IMPRESSION: No active pulmonary disease. Electronically signed by: Gurpreet Marroquin MD 08/11/2025 08:26 AM EDT
[2025-08-11 07:45] VITALS: BP 116/69; PULSE 76; RESP 18; TEMP 36.4; O2SAT 97; BMI 32.3
--- NOTE | 2025-08-11 07:55 | ED_ITS ---
HPI - General Adult General Chief complaint: Upper Respiratory Symptoms Stated complaint: SOB, cough Time Seen by Provider: 08/11/25 07:55 Source: patient Mode of arrival: ambulatory Limitations: no limitations History of Present Illness ED Provider: Ciara Salas PA-C HPI narrative: Patient is a 34 year old assigned female at with a history of seizures and DM presenting to the emergency department today with a cough and nasal congestion. Patient states that over the last week she has felt generally unwell with a cough and nasal congestion. Patient denies any other complaints at this time. Related Data Home Medications ?Medication ?Instructions ?Recorded ?Confirmed metformin 500 mg tablet 500 mg PO BIDWM 07/30/2302/19 divalproex 250 mg tablet,extended 250 mg PO BID 10/01/24 release 24 hr divalproex 500 mg tablet,extended 500 mg PO BID 10/01/24 release 24 hr Previous Rx's ?Medication ?Instructions ?Recorded cyclobenzaprine 10 mg tablet 10 mg PO TID PRN muscle s pasm #15 07/18/24 tabs acetaminophen 500 mg tablet 500 mg PO Q6H PRN fever or pain 09/03/24 #20 tabs ibuprofen 600 mg tablet 600 mg PO Q8H PRN pain #14 t abs 09/03/24 ibuprofen 600 mg tablet 600 mg PO Q8H PRN pain #20 t abs 09/06/24 lidocaine 5 % topical patch 1 patch topical DAILY #15 ea 09/06/24 (Lidoderm) naproxen 500 mg tablet 500 mg PO BID PRN pain #14 t abs 09/11/24 naproxen 500 mg tablet 500 mg PO BID 30 days #60 ta bs 10/01/24 meclizine 25 mg tablet 25 mg PO TID PRN dizziness # 20 tabs 10/19/24 ondansetron 4 mg disintegrating 4 mg PO Q8H PRN nausea and 10/19/24 tablet vomiting #20 tabs acetaminophen 325 mg tablet 325 mg PO QID PRN pain #28 tabs 11/04/24 (Tylenol) meclizine 25 mg tablet (Dramamine 25 mg PO TID PRN diz ziness #20 tabs 12/09/24 Less Drowsy) ibuprofen 600 mg tablet 600 mg PO TID PRN pain #10 t abs 12/25/24 azithromycin 250 mg tablet See Rx Instructions PO .COM PLEX #6 08/11/25 tabs prednisone 20 mg tablet 40 mg (2 x 20 mg) PO DAILY C OPD 08/11/25 exacerbation 5 days #10 tabs Allergies Allergy/AdvReac Type Severity Reaction Status Date / Time Iodinated Contrast Media Allergy Intermediate Facial Verified 08/11/25 07:47 Swelling clindamycin (CLINDAMYCIN) Allergy Unknown ANAPHYLAXIS Verified 08/11/25 07:47 latex Allergy Itching Verified 08/11/25 07:47 Review of Systems Constitutional: Constitutional: Reports as per HPI Eyes: Eyes: Reports as per HPI ENT: Reports as per HPI Cardiovascular: Cardiovascular: Reports as per HPI Respiratory: Respiratory: Reports as per HPI Gastrointestinal: Gastrointestinal: Reports as per HPI Genitourinary: Genitourinary: Reports as per HPI Musculoskeletal: Musculoskeletal: Reports as per HPI Integumentary/Breasts: Skin/Breast: Reports as per HPI Neurologic: Reports as per HPI Psychiatric: Psychiatric: Reports as per HPI Endocrine: Endocrine: Reports as per HPI Hematologic/Lymphatic: Hematologic/Lymphatic: Reports as per HPI Allergic/Immunologic: Allergic/Immunologic: Reports as per HPI [facility] Past Medical History Attestation statement: The following information was validated with the patient. Source: old records reviewed and nursing notes reviewed Medical History Chronic allergic rhinitis Otitis media Hypoxia Viral pneumonia Infection due to human metapneumovirus (hMPV) Diabetes mellitus Epilepsy Surgical History Hx of cholecystectomy Social History Social History Household Members: Spouse and Children Housing: Apartment Do you presently have visiting nurse or other home services: No Alcohol intake: current Alcohol intake frequency: holidays/special occasions only Patient Tobacco Use Status: Never used Tobacco Advance Directives: Yes Advance Directives on File: Yes Advance Directives Date on File: 08/17/23 Do you have a plan to hurt others: No Plan service: No Current occupational status: employed 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 Physical Exam ED Vital Signs: Vital Signs - 24 hr 08/11/25 07:45 08/11/25 08:58 Temperature 97.6 F 97.6 F Pulse Rate 76 76 Respiratory Rate 18 18 Blood Pressure 116/69 116/69 Pulse Oximetry 97 97 Oxygen Delivery Method Room Air Room Air BMI result Body Mass Index 32.3 Const General: cooperative, no acute distress, alert and awake Nutritional Appearance: well nourished Orientation/consciousness: patient oriented x3 [facility] Head: Yes normal to inspection and Yes atraumatic Ears: hearing grossly normal bilaterally and external ears normal General nose exam: Normal external nose present, no nasal discharge noted and no epistaxis Face and sinus: Yes normal facial exam, No abrasion and No laceration Mouth: Normal oral and palatal mucosa present, no drooling and no muffled voice Eyes General: appearance normal, both eyes and all related structures Periorbital: periorbital findings normal Eyelids: Yes eyelids normal Conjunctivae: conjunctivae normal Pupils: Equal, round and reactive pupils present EOM: EOMs intact bilaterally Neck Neck: Yes normal visual inspection and Yes full ROM Resp Effort & Inspection: normal respiratory effort and able to speak in complete sentences Neuro General: patient oriented x3, moves all extremities and CN's II-XI intact bilaterally Cranial nerves: Yes Equal, round and reactive pupils present Cognition (Neuro): normal cognition Extrem General: Yes normal to inspection, Yes full ROM and Yes capillary refill normal Psych Appearance: grossly normal Mental Status: mental status grossly normal Affect: normal affect Attitude: cooperative Thought process: Normal thought process present Thought content: Normal thought content present Insight: Good insight present (Psych) Medical Decision Making Medical Decision Making MDM Narrative: Patient is a 34 year old assigned female at with a history of seizures and DM presenting to the emergency department today with a cough and nasal congestion. Patient's physical exam was as noted in the physical exam portion of this note. Patient's COVID-19 and influenza testing was unremarkable. Patient's chest x-ray showed no acute process. I explained my physical exam findings as well as all test results to the patient. I answered all questions asked by the patient. I stressed the importance of the patient taking her medication as directed (either prescribed or as the over the counter packaging recommends). I stressed the importance of the patient following up with her primary care provider. I stressed the importance of the patient returning to the emergency department immediately if her symptoms were to worsen or if she were to develop any dizziness, shortness of breath, difficulty breathing, chest pain, blurry vision, loss of vision, nausea, vomiting, abdominal pain, fever, chills, back pain, or any other complaints. Patient verbalized agreement and understanding with this treatment plan and discharge. Differential Diagnosis Differential Diagnoses: The differential diagnosis associated with the presentation includes Cough Viral illness URI PNA COVID-19 Influenza Admission/Observation Consideration of admission/observation: Escalation of care including admission/observation considered Patient would have been admitted to the hospital had her work up had any findings where hospital admission was appropriate and her clinical presentation warranted hospital admission. Lab Data [facility] Lab Attestation statement: I reviewed the patient's lab results. My interpretation of these results are in the [facility] Rationale portion of this note. Labs: Lab Results 08/11/25 Range/Units 07:53 COVID-19 (TOÑA) Negative (Negative) COVID-19 Clin Com See Note Influenza Type A (YIN) Negative (Negative) Influenza Type B (YIN) Negative (Negative) Influenza A & B Note See Note Independent Interpretation I performed an independent interpretation of an: Plain X-Ray Interpretation: My interpretation is in agreement with the radiologist's impression of this imaging study. Reason for Exam: cough, SOB EXAMINATION: XR CHEST CLINICAL INFORMATION: cough, SOB COMPARISON: 05/22/2025. TECHNIQUE: 2 views of the chest were obtained. FINDINGS: The cardiac, hilar, and mediastinal contours are normal. The lungs are clear bilaterally. There is no pneumothorax or pleural effusion. There is no focal osseous or soft tissue abnormality. XR/XR chest 2V IMPRESSION: No active pulmonary disease. Electronically signed by: Gurpreet Marroquin MD 08/11/2025 08:26 AM EDT Dictated By: Gurpreet Marroquin MD Signed By: Electronically signed by Gurpreet Marroquin MD 08/11/25 0826 Radiology Impression Discussion of test interpretation with radiology: I have reviewed the radiologist's reading. Prescription Management I considered prescription management with: Antibiotic (patient prescribed an antibiotic for URI, per patient's request. ) Discharge Plan Discharge Clinical Impression: URI (upper respiratory infection) Patient Disposition: Home, Self-Care Instructions: Upper Respiratory Infection (DC) Additional Instructions: IF you are prescribed home medications and/or you are taking over the counter medications at home- it is very important you continue to do so as prescribed / directed unless told otherwise. SI le recetan medicamentos y/o est? tomando medicamentos de venta kim, es muy importante que contin?e haci?ndolo seg?n lo recetado/indicado a menos que le indiquen lo contrario. Follow up with your primary care provider. Return to the emergency department immediately if your symptoms worsen or if you develop any dizziness, shortness of breath, difficulty breathing, chest pain, blurry vision, loss of vision, nausea, vomiting, abdominal pain, fever, chills, back pain, or any other complaints. Seamus?seguimiento?con pineda m?dico de atenci?n primaria. Acuda inmediatamente al servicio de urgencias si roberto s?ntomas empeoran o si presenta falta de aliento, dificultad para respirar, dolor tor?cico, mareos, aturdimiento, dolor de espalda, dolor abdominal, fiebre, escalofr?os o cualquier otro s?ntoma. Please see the information below about our Patient Portal. If you are not yet enrolled in the [facility] Patient Portal, you will receive an enrollment email invitation following your visit to any [facility] setting. You may also self-enroll in the Patient Portal by visiting our website: [email or web address] The following information is required to access the Patient Portal: - Your [facility] Medical Record Number - Your personal home email address (must match what is in your electronic medical record, Registration staff can assist with this) - Name - Date of Capabilities of the Patient Portal: - Message some providers - View upcoming appointments - Access your health summary, medical history, and visit history - View current conditions and allergies - View procedure and lab results - View your medications, including guidelines, side effects, and precautions - Complete pre-appointment questionnaires requested by your provider - Ready summary reports of your office visits and procedures To access the Patient Portal Mobile Naa, follow these directions: - Search Lucky Sort in the Naa Store or Mobilligy Store - Download the Naa - Search for [facility] - Enter your login/password Portal del paciente Si usted no esta inscrito en el portal de pacientes de [facility], recibira trent invitacion de inscripcion despues de pineda visita al [facility] o al [facility] via correo electronico. Tambien puede inscribirse voluntariamente en el portal de pacientes visitando nuestra pagina web: [email or web address] La siguiente informacion sera requerida para acceder al portal: - Pineda sonia de historia medica de [facility] - Pineda direccion de correo electronico personal - Nombre - Fecha de nacimiento Capacidades: Las siguientes capacidades estan disponibles en el portal de pacientes: - Enviar mensajes a algunos doctores - Verificar proximas citas - Acceso a pineda historial de fozia, registro medico e historial de visitas - Shantel las condiciones actuales y alergias shantel procedimientos y resultados del laboratorio - Shantel roberto medicamentos, incluyendo las pautas - Efectos secundarios y precauciones - Completar o llenar formularios / cuestionarios de - Citas solicitadas por pineda doctor - Leer los resumenes de reportes medicos de roberto visitas y procedimientos Elgin acceder a la aplicacion movil: - Busque Lucky Sort en la Naa Store o Google Play Store - Descargue la aplicacion - [facility] - Ingrese pineda nombre de usuario / Contrasena Prescriptions: New azithromycin 250 mg tablet See Rx Instructions .ROUTE .COMPLEX Qty: 6 0RF Rx Instructions: For 250 mg dose pack: take 500 mg today (day 1), then 250 mg for 4 days (days 2-5) prednisone 20 mg tablet 40 mg PO DAILY 5 Days Qty: 10 0RF No Action ibuprofen 600 mg tablet 600 mg PO Q8H PRN (Reason: pain) Qty: 14 0RF acetaminophen 500 mg tablet 500 mg PO Q6H PRN (Reason: fever or pain) Qty: 20 0RF naproxen 500 mg tablet 500 mg PO BID PRN (Reason: pain) Qty: 14 0RF ondansetron 4 mg tablet,disintegrating 4 mg PO Q8H PRN (Reason: nausea and vomiting) Qty: 20 0RF meclizine 25 mg tablet 25 mg PO TID PRN (Reason: dizziness) Qty: 20 0RF meclizine [Dramamine Less Drowsy] 25 mg tablet 25 mg PO TID PRN (Reason: dizziness) Qty: 20 0RF ibuprofen 600 mg tablet 600 mg PO TID PRN (Reason: pain) Qty: 10 0RF metformin 500 mg tablet 500 mg PO BIDWM divalproex 500 mg tablet extended release 24 hr 500 mg PO BID Rx Instructions: with 250 mg; total 750 mg BID divalproex 250 mg tablet extended release 24 hr 250 mg PO BID Rx Instructions: with 500 mg; total 750 mg BID cyclobenzaprine 10 mg tablet 10 mg PO TID PRN (Reason: muscle spasm) Qty: 15 0RF ibuprofen 600 mg tablet 600 mg PO Q8H PRN (Reason: pain) Qty: 20 0RF lidocaine [Lidoderm] 5 % adhesive patch,medicated 1 patch topical DAILY Qty: 15 0RF Rx Instructions: leave on most painful area for up to 12 hrs acetaminophen [Tylenol] 325 mg tablet 325 mg PO QID PRN (Reason: pain) Qty: 28 0RF naproxen 500 mg tablet 500 mg PO BID 30 Days Qty: 60 3RF Referrals: Kath Venegas MD [Primary Care Provider, Internal Medicine] Stand Alone Forms: Work/School Release Interventions: ED Discharge Assessment Last Done: 08/11/25 08:58 Discharge Date/Time: 08/11/25 08:58 Print Language: Tristanian
--- OUTSIDE RECORDS SUMMARY | 2025-08-11 08:15 | XMS_ITS | Encounter Summary ---
Author Organization [employer] Address [address] [facility] [address] [place] [address] Care Team Providers Care Breaker Engineer Name Role Phone Kath Venegas MD Primary Care Provide r Cliff Siu RN Unavailable [phone] Halima Mckenzie Unavailable Enriqueta Eng Unavailable Cliff Siu RN Unavailable [phone] Earline Gotti Unavailable Reason for Visit * Reason Comments Med Refill Encounter Details Date Type Department Care Team (Late st Contact Info) Description 02/29/2024 Refill [facility] [address] [place], [place] [phone] Kath Venegas MD [address] [place], [place] [phone] Seizure disorder (CMS/HCC); Heartburn Social History Tobacco [...] Care Team (Late st Contact Info) Description 08/14/2025 9:00 AM EDT Clinical Support [facility] DI[facility]ET[facility]/NUTRITION [address] [place] [address] Mali Wills, COREEN [address] [place] [address] 09/18/2025 10:00 AM EST Office Visit [facility] [address] [place] [phone] Kath Venegas MD [address] [place] [phone] documented as of this encounter Visit Diagnoses Diagnosis Seizure disorder (CMS/HCC) (HCC) Unspecified epilepsy without mention of intractable epilepsy Heartburn documented in this encounter Care Teams Breaker Engineer Relationship Specialty Start Date End Date Kath Venegas MD [address] [place] [address] PCP - General Family Medicine 06/04/19 Cliff Siu, REBECA [address] [place] [address] Registered Nurse Family Medicine 04/20/25 04/20/25 Halima Mckenzie 04/20/25 04/20/25 Enriqueta Eng 05/25/25 05/28/25 Cliff Siu, RN [address] [place] [address] Registered Nurse Family Medicine 07/15/25 07/21/25 Earline Gotti 07/15/25 07/21/25 Zeny Mckenzie Ticket Manager 03/03/24 documented as of this encounter
--- OUTSIDE RECORDS SUMMARY | 2025-08-11 08:15 | XMS_ITS | Clinical Summary ---
Author Organization [facility] Address [address] [place] [address] Care Team Providers Care Mathematics Academic Chair Name Role Phone Cheyenne Otto Primary Care Provider [phone] Allergies Active Allergy Reactions Criticality Noted Date [...] Plan of Treatment Not on file Insurance [facility] Care Teams Mathematics Academic Chair Relationship Specialty Start Date End Date Cheyenne Otto [address] [place] [phone] PCP - General Internal Medicine 01/18/25
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
--- OUTSIDE RECORDS SUMMARY | 2025-08-11 08:15 | XMS_ITS | Clinical Summary ---
Author Organization [facility] Address [address] [address] Phone Care Team Providers Care Equipment Installer Name Role Phone Pcp, Unknown Primary Care [...] (18-6 5 YEARS) 2009 PAP SMEAR 2012 INFLUENZA VACCINE (#1) 2025 0, 06/23/2019 COVID-19 VACCINE (2024-2 6 season) 2025 05/27/2021, 05/06/2021 HEPATITIS A VACCINES Aged Out [...] ACO C3 ACO C3 ACO C[facility] C3 ACO Care Teams Equipment Installer Relationship Specialty Start Date End Date Pcp, Unknown PCP - General 09/10/19 Additional Source Comments The information contained in this document represents components of the legal health record. It is not the complete legal health record.[facility]
--- OUTSIDE RECORDS SUMMARY | 2025-08-11 08:15 | XMS_ITS | Encounter Summary ---
Author Organization [employer] Address [address] [facility] [address] [place] [address] Care Team Providers Care Brim Plater Name Role Phone Kath Venegas MD Primary Care Provide r Encounter Details Date Type Department Care Team (Latest Contact Info) Description 08/07/2025 Travel Social History Tobacco Use Types Packs/Day Years Used Date Smoking Tobacco: Never Passive Smoke Exposure: Never Smokeless Tobacco: Never Alcohol Use Standard Drinks/Week Comments Never 0 (1 standard drink = 0.6 oz pur e alcohol) Depression Answer Date Recorded Patient Health Questionnaire-9 Score 0 06/23/2025 Patient Health Questionnaire-9 Score 0 06/23/2025 Last PHQ-9: Questionnaire Data Not on file 0 06/23/2025 Housing Stability Answer Date Recorded What is [...] Date Recorded Patient Health Questionnaire-2 Score 0 06/23/2025 Internet Access Answer Date Recorded Internet Access [...] Description 08/14/2025 9:00 AM EDT Clinical Support [facility] DIABETES/NUTRITION [address] [place] [phone] [place] [address] 09/18/2025 10:00 AM EST Office Visit [facility] MEDICINE [address] [place] [phone] Kath Venegas MD [address] [place] [address] documented as of this encounter Visit Diagnoses Not on filedocumented in this encounter Additional Health Concerns Assessment Noted Time PHQ-9 Depression Total Score: 0 06/23/20 25 10:49 AM EDT documented as of this encounter Care Teams Brim Plater Relationship Specialty Start Date End Date Kath Venegas MD [address] [place] [phone] PCP - General Family Medicine 06/04/19 Zeny Mckenzie Lan Specialist 03/03/24 documented as of this encounter
--- OUTSIDE RECORDS SUMMARY | 2025-08-11 08:16 | XMS_ITS | Encounter Summary ---
Author Organization [employer] Address [address] [facility] [address] [place] [address] Care Team Providers Care Rules Examiner Name Role Phone Kath Venegas MD Primary Care Provide r Cliff Siu RN Unavailable [phone] Halima Mckenzie Unavailable Enriqueta Eng Unavailable Cliff Siu RN Unavailable [phone] Earline Gotti Unavailable Reason for Visit * Reason Onset Date Comments Appointment Request 01/24/2023 Encounter Details Date Type Department Care Team (Late st Contact Info) Description 01/24/2023 Telephone [facility]ICINE [address] [place], [place] [phone] Kath Venegas MD [address] [place], [place] [phone] Appointment Request Social History Tobacco Use Types [...] Miscellaneous Notes * Telephone Encounter - Oscar Rivera - 01/24/2023 12:28 PM EDT Tc from pt requesting to r/s appt on 01/24/23 ( [facility] 11/25/2022 01/04/2023 ) Please contact pt at [phone] documented in this encounter Plan of Treatment Upcoming Encounters Date Type Department Care Team (Late st Contact Info) Description 08/14/2025 9:00 AM EDT Clinical Support [facility] DIABETES/NUTRITION [address] [place] [address] [place] [address] 09/18/2025 10:00 AM EST Office Visit [facility] MEDICINE [address] [place] [address] Kath Venegas MD [address] [place] [address] documented as of this encounter Visit Diagnoses Not on filedocumented in this encounter Care Teams Rules Examiner Relationship Specialty Start Date End Date Kath Venegas MD [address] [place] [address] PCP - General Family Medicine 06/04/19 Cliff Siu RN [address] [place] [address] Registered Nurse Family Medicine 04/20/25 04/20/25 Halima Mckenzie 04/20/25 04/20/25 Enriqueta Eng 05/25/25 05/28/25 [facility] [phone] Registered Nurse Family Medicine 07/15/25 07/21/25 Earline Gotti 07/15/25 07/21/25 Zeny Mckenzie Management Development Specialist 03/03/24 documented as of this encounter
--- OUTSIDE RECORDS SUMMARY | 2025-08-11 08:16 | XMS_ITS | Clinical Summary ---
Author Organization [email or web address] Address [address] [facility] [address] [place] [address] Care Team Providers Care Signal Supervisor Name Role Phone Kath Venegas MD Primary Care Provide r Allergies Active Allergy Reactions Criticality Noted Date Comments Clindamycin Anaphylaxis High 09/10/2019 Iodinated Contrast Media High 11/06/2022 Other Reaction(s): Facial Swelling Latex Itching 12/24/2023 Other Reaction(s): rash & Blisters Medications * This document contains information received from the source organization and may not represent a complete record from that organization. FreeStyle lancetsIndicatio ns:Type 2 diabetes mellitus without complication, without long-term current use of insulin (HCC) 1 each by Other route 2 times daily. 50 each 11 3 Active Ventolin HFA 108 (90 Base) MCG/ACT inhalerIndicatio ns:Reactive airway disease without complication, unspecified asthma severity, unspecified whether persistent INHALE 2 PUFFS BY MOUTH EVERY 4 TO 6 HOURS NEEDED FOR WHEEZE/SHORTNE SS OF BREATH 18 g 1 3 Active Symbicort 160-4.5 MCG/ACT inhaler INHALE 2 PUFFS BY MOUTH TIMES A DAY FOR 30 DAYS 4 Active FREESTYLE LITE test stripIndications :Type 2 diabetes mellitus without complication, without long-term current use of insulin (HCC) USE 1 STRIP IN AM TO CHECK BLOOD SUGAR ONCE A DAY 100 strip 3 4 Active acyclovir (Zovirax) 5 % ointmentIndicati ons:HSV infection Apply thin layer to affected area five times daily for 7 days 5 g 4 10/17/20 25 Active acyclovir (Zovirax) 800 MG tabletIndication s:Herpes Simplex Infection Take 3 tabs a day for 2 days 6 tablet 1 5 Active amitriptyline (Elavil) 10 MG tabletIndication s:Chronic migraine without aura without status migrainosus, not intractable TAKE 1 TABLET BY MOUTH EVERYDAY AT BEDTIME 90 tablet 5 Active ibuprofen 600 MG tabletIndication s:Chronic bilateral low back pain with bilateral sciatica TAKE 1 TABLET BY MOUTH 3 TIMES DAILY. 90 tablet 5 Active Tirzepatide (Mounjaro) 2.5 MG/0.5ML solution auto-injectorInd ications:Type 2 diabetes mellitus with hyperglycemia, without long-term current use of insulin ([facility]) Inject 2.5 mg under the skin 1 (one) time per week. 2 mL 2 5 Active valACYclovir (Valtrex) 1 g tabletIndication s:Herpes simplex of female genitalia Take 1 tablet (1,000 mg) by mouth Once per day. 90 tablet 3 5 Active metFORMIN (Glucophage) 500 MG tabletIndication s:Type 2 diabetes mellitus with hyperglycemia, without long-term current use of insulin ([facility]) TAKE 1 TABLET BY MOUTH WITH BREAKFAST AND EVENING MEALS 180 tablet 1 5 Active lisinopril 2.5 MG tabletIndication s:Type 2 diabetes mellitus with hyperglycemia, without long-term current use of insulin ([facility]) Take 1 tablet (2.5 mg) by mouth Once per day. 30 tablet 11 5 06/23/20 26 Active cetirizine (ZyrTEC) 10 MG tabletIndication s:Seasonal allergies Take 1 tablet (10 mg) by mouth Once per day. 90 tablet 3 5 06/23/20 26 Active Active Problems Problem Noted Date Diagnosed Date Loud snoring 06/23/2025 Assessment & Plan (06/23/2025 12:01 PM EDT): I will order sleep studies for patient, patient will be contacted with results Class 2 severe obesity due t o excess calories with serious comorbidity and body mass index (BMI) of 35.0 to 35.9 in adult 03/19/2025 Assessment & Plan (03/19/2025 11:08 AM EDT): Extensive counseling about healthy diet and exercise done today I referred patient to billing analyst Chronic pain of both knees 03/19/2025 Dysmenorrhea 12/11/2024 Assessment & Plan (12/11/2024 11:31 [...] blood pressure medication amlodipine 2.5 mg daily History of shingles 11/11/2024 Overview (11/11/2024): - [...] Seek medical attention for worsening symptoms 11/11/24 Strep pharyngitis 11/11/2024 Overview (11/11/2024): - Prescribed [...] at bed time and sumatriptan 25mg PRN Chronic allergic rhinitis 07/11/2024 Hx of cholecystectomy 07/11/2024 Irritant contact dermatitis 04/10/2024 Assessment & Plan (05/20/2024 1:30 PM EDT): On thighs Use betamethasone cream Use Mositurizing cream daily, zinc oxide cream in thighs to avoid friction. Dyspareunia in female 07/30/2023 Assessment & Plan (02/08/2024 10:35 AM EDT): .mabg Dissociative convulsions 05/21/2023 Seasonal allergies 04/06/2023 Chronic bilateral low back pain with bilateral s ciatica 02/21/2023 Assessment & Plan (10/31/2023 10:05 AM EST): C/w with pain medications PRN Referral to orthopedics C done today Oligomenorrhea 10/26/2022 Assessment & Plan (10/26/2022 8:32 PM EST): RO PCOS. Patient will get labs from [facility] done. Keep menstruation dairy. FU w [facility] Type 2 diabetes mellitus wit h hyperglycemia, without long-term current use of insulin 10/26/2022 Assessment & Plan (06/23/2025 12:00 PM EDT): Diabetes is: not controlled - Lab Results Component Value Date HGBA1C 6.6 (A) 06/23/2025 HGBA1C 6.6 (A) 12/11/2024 HGBA1C 6.4 (A) 11/10/2024 - Lab Results Component Value Date MICROALBUR 46.0 03/19/2025 CREATININE 0.49 (L) 03/19/2025 -Changes: Continue with metformin I will start today Mounjaro 2.5 mg weekly - Diabetic eye exam: Up-to-date - Diabetic foot exam: Pending - Continue lifestyle modifications - Continue current medications - Follow up: 3 months Assessment & Plan (03/19/2025 11:09 AM EDT): Diabetes is: almost at goal - Lab Results Component Value Date HGBA1C 6.6 (A) 12/11/2024 HGBA1C 6.4 (A) 11/10/2024 HGBA1C 6.1 (A) 07/14/2024 - Lab Results Component Value Date MICROALBUR 25.0 10/08/2023 CREATININE 0.55 10/24/2024 -Changes: None - Diabetic eye exam: Up-to-date - Diabetic foot exam: Pending - Continue lifestyle modifications - Continue current medications - Follow up: 3 months Assessment & Plan (12/11/2024 11:28 AM EST): [...] physical activity as tolerated. FU in 3-4w. 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 ([facility]/HCC) 10/04/2022 Mood disorder 10/04/2022 Assessment & Plan (06/23/2025 12:01 PM EDT): Counseling done today patient declines medications or therapy Menometrorrhagia 10/04/2022 Irregular periods 10/04/2022 Seizure disorder ([facility]) 10/04/2022 Assessment & Plan (06/23/2025 12:01 PM EDT): Patient reports she has not had any further seizures, specialist discontinued her Depakote Assessment & Plan (05/20/2024 1:29 PM EDT): [...] her appointment Acute low back pain 10/04/2022 Resolved Problems Problem Noted Date Diagnosed Date Resolved Date Viral upper respiratory infection 11/25/2024 03/19/2025 Assessment & Plan (11/25/2024 9:31 AM EST): COVID and Flu negative. No evidence of respiratory distress. Symptoms mild. No evidence of dehydration. -Supportive care advised. -Isolation recommendations discussed. -Encouraged teas and honey for soothing and lots of fluids. -Declined work note, but will call if need presents. Cough in adult patient 11/11/202403/19 Abdominal pain 07/11/2024 03/19/2025 Class 1 obesity 07/11/2024 03/19/2025 Genital lesion, female 02/08/202403/19 Sore throat 02/08/2024 03/19/2025 Assessment & Plan (02/08/2024 10:36 AM EDT): Strep, COVID and flu at the office is negative I recommended rest and fluids Acetaminophen PRN Bug bites 07/30/2023 03/19/2025 Assessment & Plan (07/30/2023 3:22 PM EDT): This is not vasculitis, now they are completely resolved Heartburn 04/06/2023 03/19/2025 Assessment & Plan (04/06/2023 1:33 PM EDT): I advise patient to avoid NSAIDs, spicy and acid food, I advise to eat at the same time every day, I advise to elevate the head of the bed and take medications as prescribe Hospital discharge follow-up 02/21/2023 03/19/2025 Assessment & Plan (07/15/2024 12:59 PM EDT): No specific followup needed fro hospital stay, followup with [facility] neuro, [facility] Visit for preventive health examination 10/26/2022 03/19/2025 Assessment & Plan (10/26/2022 8:38 PM EST): [...] to date. Next one due on 12/2022 Pharyngitis 10/04/2022 03/19/2025 Vaginal irritation 10/04/2022 Reactive airway disease 10/04/202202/27 Assessment & Plan (05/24/2023 9:55 AM EDT): Albuterol refilled today I decided to refer her to pulmonary for further evaluation Pain in wrist 10/04/2022 03/19/2025 Dizziness 10/04/2022 03/19/2025 Encounters Date Type Department Care Team Description 08/07/2025 Travel 07/21/2025 Patient Outreach [facility] [address] [place] [phone] Kath Venegas MD Care Coordination (Care Coordination- CP Program) 07/20/2025 Patient Outreach [address] [phone] Kath Venegas MD 07/20/2025 Patient Outreach [address] [phone] Kath Venegas MD Care Coordination ([facility]/W Earline Gotti, Chart review ) 07/15/2025 Patient Outreach [address] [address] Kath Venegas MD Care Coordination (C3- chart review) 07/15/2025 Patient Outreach [address] [phone] Kath Venegas MD 07/13/2025 3:00 PM EDT Clinical Support [facility]/NUTRITION [address] [place] [phone] Class 2 severe obesity with serious comorbidity and body mass index (BMI) of 35.0 to 35.9 in adult, unspecified obesity type (CMS/HCC) (Primary Dx) 07/13/2025 Travel 07/09/2025 Telephone [facility] [address] [place] [address] Kath Venegas MD 07/03/2025 9:00 AM EDT Nutrition [facility]/NUTRITION [address] [place] [phone] Class 2 severe obesity due to excess calories with serious comorbidity and body mass index (BMI) of 35.0 to 35.9 in adult (CMS/HCC) 07/03/2025 Telephone [facility] [address] [place] [phone] Kath Venegas MD telephone call 07/03/2025 Travel 07/01/2025 Telephone [facility] [address] [place] [address] [phone] Kath Venegas MD 06/23/2025 10:45 AM EDT Office Visit [facility] [address] [place] [phone] Kath Venegas MD Loud snoring (Primary Dx); Type 2 diabetes mellitus with hyperglycemia, without long-term current use of insulin (CMS/HCC); Mood disorder (CMS/HCC); Seizure disorder ([facility]/HCC); Herpes simplex of female genitalia; Seasonal allergies 06/23/2025 Travel 06/19/2025 Telephone [facility] [address], [place] [phone] Kath Venegas MD Chart Prep 05/28/2025 Patient Outreach [facility] [address], [place] [phone] Kath Venegas MD Care Coordination (Communication to pt assigned CP Coordinator) 05/26/2025 Patient Outreach [facility] [address], [place] [phone] Kath Venegas MD Care Coordination ([facility] ED F/U) 05/26/2025 Patient Outreach [facility] PEDS [address] [place] [address] Kath Venegas MD Care Coordination (C3/CHW Chart Review) 05/25/2025 Patient Outreach [facility] [address] [place] [address] Kath Venegas MD 05/22/2025 Orders Only [facility] External Provider, [facility] 05/21/2025 Refill [facility] [address] [place] [address] Neelima Lr CNM from Last 3 Months Immunizations Immunization Administration Dates Next Due INFLUENZA VACCINE QUADRIVALE NT RECOMBINANT PRESERVATIVE FREE RIV4 08/18/2020 Influenza injectable quadriv alent preservative free 07/30/2023,08/30/2022,06/23/2019 Influenza, seasonal, injecta ble, preservative free 07/14/2024 Pneumococcal Conjugate PCV 20 03/19/2025 Tdap 10/26/2022 Social History Tobacco Use Types [...] Sign Reading Time Taken Comments Blood Pressure 124/80 06/23/2025 10:48 AM EDT Pulse 87 06/23/2025 10:48 AM EDT Temperature 36.1 C (97 F) 06/23/2025 10:48 AM EDT Respiratory Rate 17 06/23/2025 10:48 AM EDT Oxygen Saturation 99% 06/23/2025 10:48 AM EDT Inhaled Oxygen Concentration - - Weight 78.7 kg (173 lb 9.6 oz) 07/07/2025 9:32 A M EDT Height 152.4 cm (5') 07/07/2025 9:32 AM EDT Body Mass Index 33.9 07/07/2025 9:32 AM EDT Plan of Treatment Upcoming Encounters Date Type Department Care Team (Late st Contact Info) Description 08/14/2025 9:00 AM EDT Clinical Support [facility] [address] [place] [phone] Mali Wills, COREEN [address] [place] [address] 09/18/2025 10:00 AM EST Office Visit [facility] [address] [place] [address] [phone] Kath Venegas MD [address] [place] [phone] Health Maintenance Due Date Last Done Comments Diabetes: Foot Exam 2001 Family Planning (PISQ) 2006 HPV Vaccines (1 - 3-dose series) 2006 Hepatitis A Vaccines (1 of 2 - Risk 2-dose series) 2010 Hepatitis B Vaccines (1 of 3 - 19+ 3-dose series) 2010 COVID-19 Vaccine (3 - season) 2025 05/27/2021, 05/06/2021 Influenza Vaccine (#1) 2025 , 07/30/2023, 08/30/2022, Additional history exists SDOH Screening 11/28/2025 11/28/2024 Alcohol/Substance Use Screening 12/11/2025 12/11/2024 Eye Exam 12/20/2025 12/20/2023, 11/30, 12/20/2023, Additional history exists Diabetes: Hemoglobin A1C 12/24/2025 025, 12/11/2024, 11/10/2024, Additional history exists Diabetes: Urine Protein Screening 03/19/2026 03/19/2025, 10/08/2023 Lipid Panel 03/19/2026 03/19/2025, 09/28, 10/27/2021 Depression Screening 06/23/2026 06/23/2025, 06/23/20 25 Disability Screening 06/23/2026 06/23/2025 Tobacco Screening 06/23/2026 06/23/2025 Cervical Cancer Screening 08/30/2027 HPV/Cotest 08/30/2027 08/30/2022 Pap Smear 08/30/2027 08/30/2022, 08/30/2022 DTaP/Tdap/Td Vaccines (2 - Td or Tdap) 10/26/2032 10/26/2022 Zoster Vaccines (1 of 2) 2041 RSV Patients and Patients Aged 60 years or older (1 - 1-dose 75+ series) 2066 HIV Screening Completed 09/28/2022, 10/27/2021 Hepatitis C Screening Completed 10/26/2022 Pneumococcal Vaccine: Pediatrics (0 to 5 Years) and At-Risk Patients (6 to 49) Years Completed 03/19/2025 HIB Vaccines Aged Out No longer eligi [...] Name Priority Date/Time Associated Diagnosis Comments POCT GLYCATED HEMOGLOBIN, TOTAL Routine 06/23/2025 10:50 AM EDT Type 2 diabetes mellitus with hyperglycemia, without long-term current use of insulin ([facility]) POCT GLUCOSE Routine 06/23/2025 10:50 AM EDT Type 2 diabetes mellitus with hyperglycemia, without long-term current use of insulin ([facility]) SARS COV2/INFLUENZA A/B AND RSV RNA QL NAAT Routine 05/22/2025 1:39 PM EDT STREP A NUCLEIC ACID Routine 05/22/2025 1:39 PM EDT XR CHEST 2 VIEWS Routine 05/22/2025 12:3 2 PM EDT ALBUMIN, RANDOM URINE W/CREATININE Routine 03/19/2025 9:58 AM EDT Type 2 diabetes mellitus with hyperglycemia, without long-term current use of insulin ([facility]) LIPID PANEL, STANDARD Routine 03/19/2025 9:58 AM EDT Type 2 diabetes mellitus with hyperglycemia, without long-term current use of insulin ([facility]) HEPATITIS PANEL, GENERAL Routine 10/26/2022 11:26 AM EST Immunization counseling Visit for preventive health examination HIV 1/2 ANTIGEN/ANTIBODY, FOURTH GENERATION W/RFL Routine 09/28/2022 8:57 AM EST THINPREP IMAGING PAP AND HPV MRNA E6/E7, WITH CT/NG, TRICHOMONAS Routine 08/30/2022 10:40 AM EDT PAP SMEAR Routine 08/30/2022 12:00 AM EDT from Last 3 Months or Most Recently Relevant to Health Maintenance Results * (ABNORMAL) POCT HGB A1C (06/23/2025 10:50 AM EDT) Hemoglobin A1C 6.6(A) 4.0 - 5.7 % QC Media Lot # [id number] Lot# Expiration Date ,[id number] Blood 06/23/2025 10:5 0 AM EDT us Kath Carey MD POINT OF CARE TEST EN TER/EDIT ORDERABLES Final Result * POCT Glucose (06/23/2025 10:50 AM EDT) Glucose Blood, POC 122 60 - 200 mg/dL Comment:random QC Media Lot # [id number] Lot# Expiration Date [id number] Blood Capillary blood specimen / Unknown 06/23/2025 10:50 AM EDT Kath Carey MD POINT OF CARE TEST EN TER/EDIT ORDERABLES Final Result * Strep A Nucleic Acid (05/22/2025 1:39 PM EDT) IDNOW SERIAL# [id number] [facility] Strep A Nucleic Acid Negative Negative [facility] Comment:All test results mus t be correlated with clinical findings.This test has not been evaluated for monitoring treatment ofinfection.Additional follow-up testing using the culture method isrequired if the result is negative and clinical symptomspersist, or in the event of an acute rheumatic feveroutbreak. 05/22/2025 1:39 PM EDT 05/22/2025 1:45 PM EDT Generic External Data Provider LAB MICROBIOLOGY - GENERAL ORDERABLES Final Result Performing Organization Address [facility] Co de Phone Number [facility] [address] [place] [phone] * (ABNORMAL) SARS-CoV-2 RNA, Influenza A/B, and RSV RNA, Ql NAAT (05/22/2025 1:39 PM EDT) Influenza A PCR NEGATIVE Negative [facility] Influenza B PCR NEGATIVE Negative [facility] Resp Syncy Virus RNA Qual PCR NEGATIVE Negative [facility] SARS COV2 PCR POSITIVE(A) Negative [facility] Comment:All test results mus t [...] use by authorized laboratories.Testing performed on the Gravitant GeneXpert utilizingreal-time RT-PCR.All SARS CoV2 and positive influenza A/B results arereported to [facility]. 05/22/2025 1:39 PM EDT 05/22/2025 1:45 PM EDT Generic External Data Provider LAB MICROBIOLOGY - GENERAL ORDERABLES Final Result Performing Organization Address [facility] Co de Phone Number [facility] [address] [place] [phone] * XR Chest 2 Views (05/22/2025 12:32 PM EDT) Anatomical Region Laterality Modality Chest Radiographic Lesvia ging 05/22/2025 12:3 2 PM EDT Narrative 05/22/2025 12:48 PM EDT [address] [address] XRay Report Signed Patient: Jerica Calix MR#: [id number] : 1990 Acct:[id number] Age/Sex: 34 / F ADM Date: 05/22/25 Loc: HO.ED Attending Dr: Ordering Physician: Lukas Castro Date of Service: 05/22/25 Procedure(s): XR chest 2V Accession Number(s): [id number] cc: Kath Venegas MD; Lukas Castro EXAMINATION: XR CHEST 2 VIEWS HISTORY: cough COMPARISON: Comparison is made with the prior examination dated 12/25/2024. FINDINGS: PA and lateral views of the chest are submitted. The lungs are expanded and clear. There is no pleural effusion, pneumothorax, or pulmonary vascular congestion. The heart is normal in size. The bones are intact. XR/XR chest 2V IMPRESSION: No acute cardiopulmonary abnormality. Electronically signed by: Trevon Hong MD 05/22/2025 12:45 PM EDT RP Dictated By: Trevon Hong MD Signed By: <Electronically signed by Trevon Hong MD in OV> 05/22/25 1245 DD/ 1232 TD/TT: 05/22/25 1241 Gardening Manager: Procedure Note Donotuseinterpreter, Image - 05/22/2025 [place] [address] XRay Report Signed Patient: Jerica CalixMR#: [id number] : 1990Acct:[id number] Age/Sex: 34 / FADM Date: 05/22/25 Loc: HO.ED Attending Dr: Ordering Physician: Lukas Castro Date of Service: 05/22/25 Procedure(s): XR chest 2V Accession Number(s): [id number] cc: Kath Venegas MD; Lukas Castro EXAMINATION: XR CHEST 2 VIEWS HISTORY: cough COMPARISON: Comparison is made with the prior examination dated 12/25/2024. FINDINGS: PA and lateral views of the chest are submitted. The lungs are expanded and clear. There is no pleural effusion, pneumothorax, or pulmonary vascular congestion. The heart is normal in size. The bones are intact. XR/XR chest 2V IMPRESSION: No acute cardiopulmonary abnormality. Electronically signed by: Trevon Hong MD 05/22/2025 12:45 PM EDT RP Dictated By: Trevon Hong MD Signed By: <Electronically signed by Trevon Hong MD in OV> 05/22/25 1245 DD/ 1232 TD/TT: 05/22/25 1241 Gardening Manager: [facility] External Provider IMG XR PROCEDURES Edited Result - Final * (ABNORMAL) Albumin, Random Urine W/Creatinine (03/19/2025 9:58 AM EDT) Creatinine, Urine 109.42 mg/dL [facility] Microalbumin Urine 46.0 mg/L H [facility] Microalbum Creatinine Ratio Ur 42.0(H) <30 ug/mg cr [facility] Comment:Albumin/Creatinine R atio Reference Ranges: Normal: < 30 ug/mg creatinine Microalbuminuria: 30 - 300 ug/mg creatinineClinical Albuminuria: > 300 ug/mg creatinine Urine (Urine, Random) 03/19/2025 9:58 AM EDT 03/19/2025 11:06 AM EDT Kath Carey MD LAB URINE ORDERABLES Final Result [facility] [address] [place] [phone] [phone] * (ABNORMAL) Lipid Panel, Standard (03/19/2025 9:58 AM EDT) Triglycerides 105 <150 mg/dL [facility] Comment:Desirable Triglyceri de: less than 150 mg/dLBorderline High Triglyceride 150-199 mg/dLHigh Triglyceride: 200-499 mg/dLVery High Triglyceride: greater than or equal to 5OO mg/dL Cholesterol 183 <200 mg/dL [facility] Comment:Desirable Cholestero l: less than 200 mg/dLBorderline High Cholesterol: 200-239 mg/dLHigh Cholesterol: greater than 239 mg/dL LDL Cholesterol Calculated 123(H) <100 mg/dL [facility] Comment:Desirable LDL: less than 100 mg/dLNear Optimal/Above Optimal LDL: 110- 129 mg/dLBorderline High LDL: 130-159 mg/dLHigh LDL: 160-189 mg/dLVery High LDL: greater than or equal to 190 mg/dL HDL Cholesterol 39(L) >40 mg/dL [facility] Comment:Desirable HDL: great er than 40 mg/dL Note: This HDL assay may give artificially low results in patients with liver disease. Blood Venous blood specimen / Unknown 03/19/2025 9:58 AM EDT 03/19/2025 11:04 AM EDT Kath Carey MD LAB BLOOD ORDERABLES Final Result [facility] [address] [place] [phone] * (ABNORMAL) Hepatitis Panel, General (10/26/2022 11:26 AM EST) Hepatitis A Antibody Total REACTIVE( A) NON-REACT [facility] Comment: For additional information, please refer to http://education.Praccel/faq/IXX127 (This link is being provided for informational/ educational purposes only.) Hepatitis B Surface Antibody QL REACTIVE( A) NON-REACT [facility] Hepatitis B Surface Ag NON-REACT [facility] NON-REACT [facility] [place] [facility] Hepatitis B Core Antibody Total NON-REACT KYLA[facility] NON-REACT [facility] [place] [facility] Hepatitis C Antibody NON-REACT KYLAH NON-REACT [facility] [place] [facility] Index 0.17 <1.00 [facility] Comment: HCV antibody was non-reactive. There is no laboratory evidence of HCV infection. In most cases, no further action is required. However, if recent HCV exposure is suspected, a test for HCV RNA (test code 63833) is suggested. For additional information please refer to http://[employer].Praccel/faq/YAP02q5 (This link is being provided for informational/ educational purposes only.) 10/26/2022 11:2 6 AM EST 10/26/2022 11:27 AM EST Narrative - 10/31/2022 11:45 PM EST FASTING:NO FASTING: NO us Cheyenne Otto MD LAB BLOOD ORDERABLES Fin al Result [address] [place] [address], [facility], [place] [address] [facility] [place] [facility] [address] [facility], ([address]) [place] [address] * HIV-1/2 Antigen and Antibodies, Fourth Generation, with Reflexes (09/28/2022 8:57 AM EST) [facility] HIV Antigen/Antibody, 4th Generation NON-REAC TIVE NON-REAC TIVE [facility] [place] [facility] Comment: HIV-1 antigen and HIV-1/HIV-2 antibodies were not detected. There is no laboratory evidence of HIV infection. PLEASE NOTE: This information has been disclosed to you from records whose confidentiality may be protected by state law. If your state requires such protection, then the state law prohibits you from making any further disclosure of the information without the specific written consent of the person to whom it pertains, or as otherwise permitted by law. A general authorization for the release of medical or other information is NOT sufficient for this purpose. For additional information please refer to http://[employer].KonaWare.Patient[employer]./faq/SHV917 (This link is being provided for informational/ educational purposes only.) The performance of this assay has not been clinically validated in patients less than 2 years old. 09/28/2022 8:57 AM EST 09/28/2022 8:57 AM EST us Neelima Lr CNM LAB BLOOD ORDERABLES Kajal l Result [facility] [address], [place] [address] [facility] [address], [place] [address] * THINPREP TIS PAP AND HPV mRNA E6/E7, CT/NG, TRICH (08/30/2022 10:40 AM EDT) Chlamydia trachomatis RNA, TMA, Urogenital NOT DETECTED NOT DETECTED CONVERTED [facility] Clinical Information: None given CONVERTED [facility] COMMENT SEE COMMENT CONVERTE D [facility] Comment: The analytical performance characteristics of this assay, when used to test SurePath(TM) specimens have been determined by [facility]. The modifications have not been cleared or approved by the FDA. This assay has been validated pursuant to the CLIA regulations and is used for clinical purposes. For additional information, please refer to https://[employer].Praccel/faq/YFZ631 (This link is being provided for information/ educational purposes only.) COMMENT SEE COMMENT CONVERTE D [facility] Comment: EXPLANATORY NOTE: The Pap is a screening test for cervical cancer. It is not a diagnostic test and is subject to false negative and false positive results. It is most reliable when a satisfactory sample, regularly obtained, is submitted with relevant clinical findings and history, and when the Pap result is evaluated along with historic and current clinical information. COMMENT: This Pap test has been evaluated with computer assisted technology. CONVERTED [facility] Grain Scooper: SEE COMMENT Kirondo Comment: ED, CT(ASCP) CT screening location: [address] [address] HPV nRNA E6/E7 Not Detected Not Detected CONVERTED [facility] Comment: Methodology: Assistant Store Manager-Mediated Amplification This assay detects E6/E7 viral messenger RNA (mRNA) from 14 high-risk HPV types (16,18,31,33,35,39,45,51,52,56,58,59,66,68). Cervical sources are required for HPV testing. If a vaginal source from a patient who has had a total hysterectomy with removal of cervix was submitted, please contact the testing laboratory for alternative testing options. For additional information, please refer to http://education.Praccel/faq/DDE870g7 (This link if provided for information/ educational [...] of this assay have been determined by [facility]. The modifications have not been cleared or approved by the FDA. This assay has been validated pursuant to the CLIA regulations and is used for clinical purposes. For additional information, please refer to http://[employer].Praccel/ faq/Trichomonastma (This link is being provided for information/ educational purposes only.) 08/30/2022 10:[address] [facility] PATHOLOGY ORDERABLES Final Result CONVERTED LEGACY LABS * Pap Smear (08/30/2022 12:00 AM EDT) Swab [facility] LAB CYTOLOGY ORDERABLES F inal Result [facility] [address], [place] [address] from Last 3 Months or Most Recently Relevant to Health Maintenance Insurance [facility] C3 Care Teams Signal Supervisor Relationship Specialty Start Date End Date Kath Venegas MD [address] [place] [address] PCP - General Family Medicine 06/04/19 Zeny Mckenzie Mechanical Repair Worker 03/03/24
[2025-08-11 08:22] LABS: IDNOW Serial# 08D9AD1C; IDNOW Serial# 58CA691E; Influenza B2 Negative (Negative)
[2025-08-11 08:23] LABS: COVID-19 Test Negative (Negative)
[2025-08-11 08:58] VITALS: BP 116/69; PULSE 76; RESP 18; TEMP 36.4; O2SAT 97
== END 2025-08-11 08:58 | disposition home or self-care (01) ==
PROVIDERS: Emergency Provider Emergency Medicine; PCP Internal Medicine
DX: J06.9 Acute upper respiratory infection, unspecified (principal); E11.9 Type 2 diabetes mellitus without complications; G40.909 Epilepsy, unspecified, not intractable, without status epilepticus; Z79.899 Other long term (current) drug therapy
CPT/HCPCS: 71046; 87502; 87635; 99282; 99283

== ENCOUNTER → 2025-08-11 07:56 | Outpatient (BNV) | payer MEDICAID, SELFPAY | PROVIDERS: Emergency Provider Emergency Medicine; PCP Internal Medicine; Visit Provider Radiology Diagnostic Radiology | DX: R05.9 Cough, unspecified (principal); R06.02 Shortness of breath | CPT/HCPCS: 71046 ==

== ENCOUNTER 2025-08-29 21:01 | Emergency (ER) | payer MEDICAID, SELFPAY ==
[2025-08-29 21:08] VITALS: BP 118/57; PULSE 81; RESP 16; TEMP 36.4; O2SAT 98; BMI 32.3
--- OUTSIDE RECORDS SUMMARY | 2025-08-30 00:05 | XMS_ITS | Clinical Summary ---
Author Organization [employer] Address [address] [facility] 7[address] [place] [address] Care Team Providers Care Sports Commentator Name Role Phone Kath Venegas MD Primary [...] hyperglycemia, without long-term current use of insulin ([facility]) Inject 2.5 mg under the skin 1 (one) time per week. 2 mL 2 5 Active valACYclovir (Valtrex) 1 g tabletIndication s:Herpes simplex of female genitalia Take 1 tablet (1,000 mg) by mouth Once per day. 90 tablet 3 5 Active metFORMIN (Glucophage) 500 MG tabletIndication s:Type 2 diabetes mellitus with hyperglycemia, without long-term current use of insulin ([facility]) TAKE 1 TABLET BY MOUTH WITH BREAKFAST AND EVENING MEALS 180 tablet 1 5 Active lisinopril 2.5 MG tabletIndication s:Type 2 diabetes mellitus with hyperglycemia, without long-term current use of insulin ([facility]) Take 1 tablet (2.5 mg) by mouth [...] exercise done today I referred patient to rn psychiatric Chronic pain of both knees 03/19/2025 Dysmenorrhea [...] RO PCOS. Patient will get labs from CONSTRUCTION CONTRACTOR done. Keep menstruation dairy. 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) 10/04/2022 Assessment & Plan (06/23/2025 12:01 PM [...] [facility] neuro, [facility] for preventive health examination 10/26/2022 [...] Encounters Date Type Department Care Team Description 08/28/2025 Travel 08/19/2025 Patient Outreach [facility] MED & PEDS [address] [place] [address] Kath Venegas MD Care Coordination (Communication to pts assigned CP Coordinator) 08/14/2025 9:00 AM EDT Clinical Support [facility] DIABETES/NUTRITION [address] [place] [address] Mali Wills, COREEN Class 2 severe obesity due to excess calories with serious comorbidity and body mass index (BMI) of 35.0 to 35.9 in adult (Primary Dx) 08/14/2025 Travel 08/12/2025 Patient Outreach [facility]ED[facility] [address] [place] [address] Kath Venegas MD Care Coordination (CP Care Coordination Chart Review) 08/12/2025 Patient Outreach [facility]ED[facility] [address] [place] [address] Kath Venegas MD Care Coordination (CP Care Coordination Chart review) 08/12/2025 Patient Outreach [facility] MEDICINE [address] [place] [address] Kath Venegas MD 08/11/2025 Orders Only GENERIC EXTERNAL DATA DEPARTMENT Provider, Generic External Data 08/07/2025 Travel 07/21/2025 Patient Outreach [address] [address] Kath Venegas MD Care Coordination (Care Coordination- CP Program) 07/20/2025 Patient Outreach [address] [phone] Kath Venegas MD 07/20/2025 Patient Outreach [address] [phone] Kath Venegas MD Care Coordination (C3/CHW Earline Gotti, Chart review ) 07/15/2025 Patient Outreach [address] [phone] Kath Venegas MD Care Coordination (C3- chart review) 07/15/2025 Patient Outreach [address] [address] Kath Venegas MD 07/13/2025 3:00 PM EDT Clinical Support [facility] DIABETES/NUTRITION [address] [place] [address] Class 2 severe obesity with serious comorbidity and body mass index (BMI) of 35.0 to 35.9 in adult, unspecified obesity type ([facility]/HCC) (Primary Dx) 07/13/2025 Travel 07/09/2025 Telephone [facility] MED [facility] PED[facility] [address] [place] [address] Kath Venegas MD 07/03/2025 9:00 AM EDT Nutrition [facility] DIABETES/NUTRITION [address] [place] [address] Class 2 severe obesity due to excess calories with serious comorbidity and body mass index (BMI) of 35.0 to 35.9 in adult (CMS/HCC) 07/03/[address] [address] Kath Venegas MD telephone call 07/03/2025 Travel 07/01/2025 Telephone [place] [facility] [address] [place] [address] Kath Venegas MD 06/23/2025 10:45 AM EDT Office Visit [facility] MEDICINE [address] [place] [address] Kath Venegas MD Loud snoring (Primary Dx); Type 2 diabetes mellitus with hyperglycemia, without long-term current use of insulin (CMS/HCC); Mood disorder (CMS/HCC); Seizure disorder (CMS/HCC); Herpes simplex of female genitalia; Seasonal allergies 06/23/2025 Travel 06/19/[address] [facility] MED & PEDS [address] [place], [place] [phone] Kath Venegas MD Chart Prep from Last 3 Months Immunizations Immunization Administration [...] Care Team (Late st Contact Info) Description 09/11/2025 2:00 PM EST Clinical Support [facility] DIABETES/NUTRITION [address] [place] [address] [place] [address] 09/18/2025 10:00 AM EST Office Visit [facility] MEDICINE [address] [place] [address] Kath Venegas MD [address] [place] [address] Health Maintenance Due Date Last Done Comments [...] Diagnosis Comments XR CHEST 2 VIEWS Routine 08/11/2025 8:18 AM EDT COVID-19 ID NOW (FRANCIS) Routine 08/11/2025 7:53 AM EDT INFLUENZA A B2 ID NOW (FRANCIS) Routine 08/11/2025 7:53 AM EDT POCT GLYCATED HEMOGLOBIN, TOTAL Routine 06/23/2025 10:50 AM EDT Type 2 diabetes mellitus with hyperglycemia, without long-term current use of insulin (CMS/HCC) POCT GLUCOSE Routine 06/23/2025 10:50 AM EDT Type 2 diabetes mellitus with hyperglycemia, without long-term current use of insulin (CMS/HCC) ALBUMIN, RANDOM URINE W/CREATININE Routine 03/19/2025 9:58 AM EDT Type 2 diabetes mellitus with hyperglycemia, without long-term current use of insulin (CMS/HCC) LIPID PANEL, STANDARD Routine 03/19/2025 9:58 AM [...] Maintenance Results * XR Chest 2 Views (08/11/2025 8:18 AM EDT) Anatomical Region Laterality Modality Chest Radiographic Lesvia ging 08/11/2025 8:18 AM EDT Narrative 08/11/2025 8:29 AM EDT [address] [address] XRay Report Signed Patient: Jerica Calix MR#: [id number] : 1990 Acct:[id number] Age/Sex: 34 / F ADM Date: 08/11/25 Loc: HO.ED Attending Dr: Ordering Physician: Ciara Salas Date of Service: 08/11/25 Procedure(s): XR chest 2V Accession Number(s): [id number] cc: Kath Venegas MD; Ciara Salas Reason for Exam: cough, SOB EXAMINATION: XR CHEST CLINICAL INFORMATION: cough, SOB COMPARISON: 05/22/2025. TECHNIQUE: 2 views of the chest were obtained. FINDINGS: The cardiac, hilar, and mediastinal contours are normal. The lungs are clear bilaterally. There is no pneumothorax or pleural effusion. There is no focal osseous or soft tissue abnormality. XR/XR chest 2V IMPRESSION: No active pulmonary disease. Electronically signed by: Gurpreet Marroquin MD 08/11/2025 08:26 AM EDT Dictated By: Gurpreet Marroquin MD Signed By: <Electronically signed by Gurpreet Marroquin MD in OV> 08/11/25825 DD/ 7 TD/TT: 08/11/25818 Sheet Metal Former: Procedure Note Donotuseinterpreter, Image - 08/11/[address] [address] XRay Report Signed Patient: Jerica CalixMR#: [id number] : 1990Acct:[id number] Age/Sex: 34 / FADM Date: 08/11/25 Loc: HO.ED Attending Dr: Ordering Physician: Ciara Salas Date of Service: 08/11/25 Procedure(s): XR chest 2V Accession Number(s): [id number] cc: Kath Venegas MD; Ciara Salas Reason for Exam: cough, SOB EXAMINATION: XR CHEST CLINICAL INFORMATION: cough, SOB COMPARISON: 05/22/2025. TECHNIQUE: 2 views of the chest were obtained. FINDINGS: The cardiac, hilar, and mediastinal contours are normal. The lungs are clear bilaterally. There is no pneumothorax or pleural effusion. There is no focal osseous or soft tissue abnormality. XR/XR chest 2V IMPRESSION: No active pulmonary disease. Electronically signed by: Gurpreet Marroquin MD 08/11/2025 08:26 AM EDT Dictated By: Gurpreet Marroquin MD Signed By: <Electronically signed by Gurpreet Marroquin MD in OV> 08/11/25825 DD/ 7 TD/TT: 08/11/25818 Sheet Metal Former: [facility] External Provider IMG XR PROCEDURES Final Result * Influenza A B2 ID NOW (Francis) (08/11/2025 7:53 AM EDT) IDNOW SERIAL# [id number] [facility] Influenza A Negative Negative [facility] Influenza B2 Negative Negative [facility] Influenza A B2 Note See Note [facility] Comment:The Francis ID NOW In [...] specimen and co- infection withRespiratory Syncytial Virus. 08/11/2025 7:53 AM EDT 08/11/2025 7:58 AM EDT us Generic External Data Provider LAB MICROBIOLOGY - GENERAL ORDERABLES Final Result [facility] [address] [place] [address] [phone] * COVID-19 ID NOW (Bnooki) (08/11/2025 7:53 AM EDT) IDNOW SERIAL# [id number] [facility] COVID-19 TEST Negative Negative [facility] COVID-19 NOTE See Note [facility] Comment: Results are for the identification of SARS-CoV2 RNA. TheSARS-CoV2 RNA is generally detectable in respiratory samplesduring the acute phase of infection. Positive results areindicative of the presence of SARS-CoV-2 RNA; clinicalcorrelation with patient history and other diagnosticinformation is necessary to determine patient infectionstatus. Positive results do not rule out bacterial infectionor co- infection with other viruses.Testing facilities within the [facility] and [facility] are required to report all positive results [...] use by authorized laboratories.Testing performed on the Amp'd Mobile ID NOW utilizing NAAT. 08/11/2025 7:53 AM EDT 08/11/2025 7:58 AM EDT us Generic External Data Provider LAB MOLECULAR ANAI GNOSTICS ORDERABLES Final Result [facility] [address] [place] [address] [phone] * (ABNORMAL) POCT HGB A1C (06/23/2025 10:50 AM EDT) Hemoglobin A1C 6.6(A) 4.0 - 5.7 % QC Media Lot # [id number] Lot# Expiration Date Blood 06/23/2025 10:5 0 AM EDT Kath Carey MD POINT OF CARE TEST EN TER/EDIT ORDERABLES Final Result * POCT Glucose (06/23/2025 10:50 AM EDT) Glucose Blood, POC 122 60 - 200 mg/dL Comment:random QC Media Lot # [id number] Lot# Expiration Date [id number] Blood Capillary blood specimen / Unknown 06/23/2025 10:50 AM EDT Kath Carey MD POINT OF CARE TEST EN TER/EDIT ORDERABLES Final Result * (ABNORMAL) Albumin, Random Urine W/Creatinine (03/19/2025 9:58 AM EDT) Creatinine, Urine 109.42 mg/dL [facility] Microalbumin Urine 46.0 mg/L H [facility] Microalbum Creatinine Ratio Ur 42.0(H) <30 ug/mg cr [facility] Comment:Albumin/Creatinine R atio Reference Ranges: Normal: < 30 ug/mg creatinine Microalbuminuria: 30 - 300 ug/mg creatinineClinical Albuminuria: > 300 ug/mg creatinine Urine (Urine, Random) 03/19/2025 9:58 AM EDT 03/19/2025 11:06 AM EDT us Kath Carey MD LAB URINE ORDERABLES Final Result Performing Organization Address [facility]/ZIP Co de Phone Number [facility] [address] [place] [address] [phone] * (ABNORMAL) Lipid Panel, Standard (03/19/2025 9:58 AM EDT) Triglycerides 105 <150 mg/dL [facility] Comment:Desirable Triglyceri de: less than 150 mg/dLBorderline High Triglyceride 150-199 mg/dLHigh Triglyceride: 200-499 mg/dLVery High Triglyceride: greater than or equal to 5OO mg/dL Cholesterol 183 <200 mg/dL [facility] Comment:Desirable Cholestero l: less than 200 mg/dLBorderline High Cholesterol: 200-239 mg/dLHigh Cholesterol: greater than 239 mg/dL LDL Cholesterol Calculated 123(H) <100 mg/dL [facility] Comment:Desirable LDL: less than 100 mg/dLNear Optimal/Above Optimal LDL: 110- 129 mg/dLBorderline High LDL: 130-159 mg/dLHigh LDL: 160-189 mg/dLVery High LDL: greater than or equal to 190 mg/dL HDL Cholesterol 39(L) >40 mg/dL [facility] Comment:Desirable HDL: great er than 40 mg/dL Note: This HDL assay may give artificially low results in patients with liver disease. Blood Venous blood specimen / Unknown 03/19/2025 9:58 AM EDT 03/19/2025 11:04 AM EDT us Kath Carey MD LAB BLOOD ORDERABLES Final Result Performing Organization Address [facility]/ZIP Co de Phone Number [facility] [address] [place] [address] [phone] * (ABNORMAL) Hepatitis Panel, General (10/26/2022 11:26 AM EST) Hepatitis A Antibody Total REACTIVE( A) NON-REACT [facility] [place] [facility] Comment: For additional information, please refer to http://[employer]/faq/KER676 (This link is being provided for informational/ educational purposes only.) Hepatitis B Surface Antibody QL REACTIVE( A) NON-REACT [facility] [place] [facility] Hepatitis B Surface Ag NON-REACT [place] NON-REACT [facility] [place] [facility] Hepatitis B Core Antibody Total NON-REACT [facility] NON-REACT [facility] C Antibody NON-REACT [place] NON-REACT [place] [place] Index 0.17 <1.00 [facility] [place] [facility] Comment: HCV antibody was non-reactive. There is no laboratory evidence of HCV infection. In most cases, no further action is required. However, if recent HCV exposure is suspected, a test for HCV RNA (test code 07477) is suggested. For additional information please refer to http://[employer]/faq/IGM16d0 (This link is being provided for informational/ educational purposes only.) 10/26/2022 11:2 6 AM EST 10/26/2022 11:27 AM EST Narrative [facility] - 10/31/2022 11:45 PM EST FASTING:NO FASTING: NO us Cheyenne Otto MD LAB BLOOD ORDERABLES Fin al Result [facility] [address], [place] [address] [facility] [place] [address] [facility], ([address]) [place] [address] * HIV-1/2 Antigen and Antibodies, Fourth Generation, with Reflexes (09/28/2022 8:57 AM EST) [facility] HIV Antigen/Antibody, 4th Generation NON-REAC TIVE NON-REAC TIVE [facility] [place] [facility] Comment: HIV-1 antigen and HIV-1/HIV-2 antibodies were [...] purpose. For additional information please refer to http://[employer]/faq/MRS158 (This link is being provided for informational/ educational purposes only.) The performance of this assay has not been clinically validated in patients less than 2 years old. 09/28/2022 8:57 AM EST 09/28/2022 8:57 AM EST Neelima Lr [facility] LAB BLOOD ORDERABLES Kajal sahni Result [employer] [address] [place] [address], [place] [address] [facility] [address] [facility] [address] * THINPREP TIS PAP AND HPV mRNA E6/E7, CT/NG, TRICH (08/30/2022 10:40 AM EDT) Chlamydia trachomatis RNA, TMA, Urogenital NOT DETECTED NOT DETECTED CONVERTED [facility]GAC[facility] LABS Clinical Information: None given CONVERTED [facility] LABS COMMENT SEE COMMENT CONVERTE D [facility] Comment: The analytical performance characteristics of this assay, when used to test SurePath(TM) specimens have been determined by [facility]. The modifications have not been cleared or approved by the FDA. This assay has been validated pursuant to the CLIA regulations and is used for clinical purposes. For additional information, please refer to https://[employer]/faq/ZNG603 (This link is being provided for information/ educational purposes only.) COMMENT SEE COMMENT CONVERTE D [facility] Comment: EXPLANATORY NOTE: The Pap is a [...] with computer assisted technology. CONVERTED LEGACY LABS Hip Hop Dancer: SEE COMMENT CONVERTED [facility]GACY LABS Comment: ED, CT(ASCP) CT screening location: [address] [address] HPV nRNA E6/E7 Not Detected Not Detected CONVERTED [facility]GACY LABS Comment: Methodology: Butcher'S Assistant-Mediated Amplification This assay detects E6/E7 viral messenger RNA (mRNA) from 14 high-risk HPV types (16,18,31,33,35,39,45,51,52,56,58,59,66,68). Cervical sources are required for HPV testing. If a vaginal source from a patient who has had a total hysterectomy with removal of cervix was submitted, please contact the testing laboratory for alternative testing options. For additional information, please refer to http://[employer]/faq/BYF334s2 (This link if provided for information/ educational [...] of this assay have been determined by [facility]. The modifications have not been cleared or approved by the FDA. This assay has been validated pursuant to the CLIA regulations and is used for clinical purposes. For additional information, please refer to http://education.[employer]/ faq/Trichomonastma (This link is being provided for information/ educational purposes only.) 08/30/2022 10:4 0 AM EDT Neelima Lr CNM LAB PATHOLOGY ORDERABLES Final Result CONVERTED [facility]GACY LABS * Pap Smear (08/30/2022 12:00 AM EDT) Swab Neelima MORALES LAB CYTOLOGY ORDERABLES F inal Result [facility] [address] [facility], [facility], [place] [address] from Last 3 Months or Most Recently Relevant to Health Maintenance Insurance [employer] C3 Care Teams Sports Commentator Relationship Specialty Start Date End Date Kath Venegas MD [address] [place] [phone] PCP - General Family Medicine 06/04/19 Zeny Mckenzie Supervisor Grower 03/03/24
--- OUTSIDE RECORDS SUMMARY | 2025-08-30 00:05 | XMS_ITS | Clinical Summary ---
Author Organization [facility] Address [address] [address] Phone Care Team Providers Care Government Relations Manager Name Role Phone Pcp, Unknown Primary Care [...] ACO C3 ACO C3 ACO C3 ACO [facility] C3 ACO Care Teams Government Relations Manager Relationship Specialty Start Date End Date Pcp, Unknown PCP - General 09/10/19 Additional Source Comments The information contained in this document represents components of the legal health record. It is not the complete legal health record.[facility]
--- OUTSIDE RECORDS SUMMARY | 2025-08-30 00:05 | XMS_ITS | Encounter Summary ---
Author Organization [employer] Address [address] [facility] 7[address] [place] [address] Care Team Providers Care Speech Teacher Name Role Phone Kath Venegas MD Primary Care Provide r Encounter Details Date Type Department Care Team (Latest Contact Info) Description 08/28/2025 Travel Social History Tobacco Use Types Packs/Day [...] Description 09/11/2025 2:00 PM EST Clinical Support [facility] DIABETES/NUTRITION [address] [place] [phone] [place] [address] 09/18/2025 10:00 AM EST Office Visit [facility] MEDICINE [address] [place] [phone] Kath Venegas MD [address] [place] [address] documented as of this encounter Visit Diagnoses Not on filedocumented in this encounter Additional Health Concerns Assessment Noted Time PHQ-9 Depression Total Score: 0 06/23/20 25 10:49 AM EDT documented as of this encounter Care Teams Speech Teacher Relationship Specialty Start Date End Date Kath Venegas MD [address] [place] [address] PCP - General Family Medicine 06/04/19 Zeny Mckenzie Salesperson Yard Goods 03/03/24 documented as of this encounter
--- OUTSIDE RECORDS SUMMARY | 2025-08-30 00:05 | XMS_ITS | Clinical Summary ---
Author Organization [facility] Address [address] [place] [id number] Care Team Providers Care Graduate Student Instructor Name Role Phone Cheyenne Otto Primary Care Provider [phone] Allergies Active Allergy Reactions Criticality Noted Date [...] Plan of Treatment Not on file Insurance [facility] Care Teams Graduate Student Instructor Relationship Specialty Start Date End Date Cheyenne Otto [address] [place] [phone] PCP - General Internal Medicine 01/18/25
--- OUTSIDE RECORDS SUMMARY | 2025-08-30 00:05 | XMS_ITS | Encounter Summary ---
Author Organization [employer] Address [address] [facility] [address] [place] [address] Care Team Providers Care Team Sports Sales Associate Name Role Phone Kath Venegas MD Primary Care Provide r Cliff Siu RN Unavailable [phone] Halima Mckenzie Unavailable Enriqueta Eng Unavailable Cliff Siu RN Unavailable [phone] Earline Gotti Unavailable Enriqueta Eng Unavailable Reason for Visit * Reason Comments Med Refill Encounter Details Date Type Department Care Team (Late st Contact Info) Description 02/29/2024 Refill [facility] [address] [place], [place] [phone] Kath Venegas MD [address] [place], [place] [phone] Seizure disorder (CMS/HCC); Heartburn Social History Tobacco [...] Description 09/11/2025 2:00 PM EST Clinical Support [facility] [address] [place] [id number] [place] [phone] 09/18/2025 10:00 AM EST Office Visit [facility] [address] [place] [phone] Kath Venegas MD [address] [place] [phone] documented as of this encounter Visit Diagnoses Diagnosis Seizure disorder (CMS/HCC) (HCC) Unspecified epilepsy without mention of intractable epilepsy Heartburn documented in this encounter Care Teams Team Sports Sales Associate Relationship Specialty Start Date End Date Kath Venegas MD [address] [place] [id number] PCP - General Family Medicine 06/04/19 Cliff Siu, REBECA [address] [place] [phone] Registered Nurse Family Medicine 04/20/25 04/20/25 Halima Mckenzie 04/20/25 04/20/25 Enriqueta Eng 05/25/25 05/28/25 Clfif Siu, RN [address] [place] [phone] Registered Nurse Family Medicine 07/15/25 07/21/25 Earline Gotti 07/15/25 07/21/25 Enriqueta Eng 08/12/25 08/19/25 Zeny Mckenzie Embedder 03/03/24 documented as of this encounter
--- OUTSIDE RECORDS SUMMARY | 2025-08-30 00:05 | XMS_ITS | Encounter Summary ---
Author Organization [employer] Address [address] [facility] 7[address] [place] [address] Care Team Providers Care Spout Positioner Name Role Phone Kath Venegas MD Primary Care Provide r Cliff Siu RN Unavailable [phone] Halima Mckenzie Unavailable Enriqueta Eng Unavailable Cliff Siu RN Unavailable [phone] Earline Gotti Unavailable Enriqueta Eng Unavailable Reason for Visit * Reason Onset Date Comments Appointment Request 01/24/2023 Encounter Details Date Type Department Care Team (Late st Contact Info) Description 01/24/2023 Telephone [facility] [address] [place], [place] [phone] Kath Venegas MD [address] [place], [place] [phone] Appointment Request Social History Tobacco Use Types [...] requesting to r/s appt on 01/24/23 ( [facility] 11/25/2022 01/04/2023 ) Please contact pt at [phone] documented in this encounter Plan of Treatment Upcoming Encounters Date Type Department Care Team (Late st Contact Info) Description 09/11/2025 2:00 PM EST Clinical Support [facility] [address] [place] [address] [place] [address] 09/18/2025 10:00 AM EST Office Visit [facility] [address] [place] [address] Kath Venegas MD [address] [place] [address] documented as of this encounter Visit Diagnoses Not on filedocumented in this encounter Care Teams Spout Positioner Relationship Specialty Start Date End Date Kath Venegas MD [address] [place] [address] PCP - General Family Medicine 06/04/19 Cliff Siu, RN [address] [place] [address] Registered Nurse Family Medicine 04/20/25 04/20/25 Halima Mckenzie 04/20/25 04/20/25 Enriqueta Eng 05/25/25 05/28/25 Cliff Siu, RN [address] [place] [address] [place] [address] Registered Nurse Family Medicine 07/15/25 07/21/25 Earline Gotti 07/15/25 07/21/25 Enriqueta Eng 08/12/25 08/19/25 Zeny Mckenzie Sterile Technician 03/03/24 documented as of this encounter
--- NOTE | 2025-08-30 00:08 | ED_ITS ---
HPI - General Adult General Chief complaint: General Medical Stated complaint: accidently poked herself w/needle she is a [place] Time Seen by Provider: 08/29/25 23:57 Source: patient Limitations: no limitations History of Present Illness ED Provider: Niharika Landa PA-C HPI narrative: 34-year-old female presents after needlestick. 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 The puncture wound is not visualized, the patient herself is up-to-date on her vaccines including tetanus. Related Data Home Medications ?Medication ?Instructions ?Recorded ?Confirmed metformin 500 mg tablet 500 mg PO BIDWM 07/30/2302/19 divalproex 250 mg tablet,extended 250 mg PO BID 10/01/24 release 24 hr divalproex 500 mg tablet,extended 500 mg PO BID 10/01/24 release 24 hr Previous Rx's ?Medication ?Instructions ?Recorded cyclobenzaprine 10 mg tablet 10 mg PO TID PRN muscle s pasm #15 07/18/24 tabs acetaminophen 500 mg tablet 500 mg PO Q6H PRN fever or pain 09/03/24 #20 tabs ibuprofen 600 mg tablet 600 mg PO Q8H PRN pain #14 t abs 09/03/24 ibuprofen 600 mg tablet 600 mg PO Q8H PRN pain #20 t abs 09/06/24 lidocaine 5 % topical patch 1 patch topical DAILY #15 ea 09/06/24 (Lidoderm) naproxen 500 mg tablet 500 mg PO BID PRN pain #14 t abs 09/11/24 naproxen 500 mg tablet 500 mg PO BID 30 days #60 ta bs 10/01/24 meclizine 25 mg tablet 25 mg PO TID PRN dizziness # 20 tabs 10/19/24 ondansetron 4 mg disintegrating 4 mg PO Q8H PRN nausea and 10/19/24 tablet vomiting #20 tabs acetaminophen 325 mg tablet 325 mg PO QID PRN pain #28 tabs 11/04/24 (Tylenol) meclizine 25 mg tablet (Dramamine 25 mg PO TID PRN diz ziness #20 tabs 12/09/24 Less Drowsy) ibuprofen 600 mg tablet 600 mg PO TID PRN pain #10 t abs 12/25/24 azithromycin 250 mg tablet See Rx Instructions PO .COM PLEX #6 08/11/25 tabs prednisone 20 mg tablet 40 mg (2 x 20 mg) PO DAILY C OPD 08/11/25 exacerbation 5 days #10 tabs Allergies Allergy/AdvReac Type Severity Reaction Status Date / Time Iodinated Contrast Media Allergy Intermediate Facial Verified 08/29/25 21:12 Swelling clindamycin (CLINDAMYCIN) Allergy Unknown ANAPHYLAXIS Verified 08/29/25 21:12 latex Allergy Itching Verified 08/29/25 21:12 Review of Systems Review of Systems: Yes all other systems are reviewed and are negative Constitutional: Constitutional: Denies fatigue and Denies fever(s) Musculoskeletal: Musculoskeletal: Denies arthralgias and Denies joint swelling Integumentary/Breasts: Skin/Breast: Denies erythema and Denies wounds Endocrine: Endocrine: Denies fatigue PMFSH Past Medical History Attestation statement: The following information was validated with the patient. Medical History Chronic allergic rhinitis Otitis media Hypoxia Viral pneumonia Infection due to human metapneumovirus (hMPV) Diabetes mellitus Epilepsy Surgical History Hx of cholecystectomy Social History Social History Household Members: Spouse and Children Housing: Apartment Do you presently have visiting nurse or other home services: No Alcohol intake: current Alcohol intake frequency: holidays/special occasions only Patient Tobacco Use Status: Never used Tobacco Advance Directives: Yes Advance Directives on File: Yes Advance Directives Date on File: 08/17/23 Do you have a plan to hurt others: No Plan service: No Current occupational status: employed 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 Physical Exam ED Vital Signs: Vital Signs - 24 hr 08/29/25 21:08 08/30/25 00:17 Temperature 97.6 F 97.6 F Pulse Rate 81 81 Respiratory Rate 16 16 Blood Pressure 118/57 L 118/57 L Pulse Oximetry 98 98 Oxygen Delivery Method Room Air Room Air BMI result Body Mass Index 32.3 Const Other: Alert well-appearing Orientation/consciousness: patient oriented x3 Resp Effort & Inspection: normal respiratory effort Cardio Other: Normal peripheral perfusion Skin Other: Warm dry no rash no breach in the skin of the thumb is detected at all Neuro General: patient oriented x3, gait normal, no focal motor deficits and CN's II- XI intact bilaterally Psych Other: Cooperative Medical Decision Making Medical Decision Making [facility] Narrative: 34-year-old female presents after needlestick. 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 The puncture wound is not visualized, the patient herself is up-to-date on her vaccines including tetanus. No chronic issues that are relevant History: Per patient I have considered the differential diagnoses: Potential exposure to blood borne pathogens Plan: The patient was stuck with a dirty needle, after the dog had been administered a rabies vaccine. The dog itself is up-to-date on shots, she is up-to-date on her tetanus, there are not any pathogens that we will be concerned about to offer prophylaxis. We will send the patient with a return precautions for the potential development of infection at the puncture site. No indication for labs or imaging. Differential Diagnosis Differential Diagnoses: The differential diagnosis associated with the presentation includes See medical decision-making Admission/Observation Consideration of admission/observation: Escalation of care including admission/observation considered Not applicable Discharge Plan Discharge Clinical Impression: Accidental hypodermic needlestick injury Patient Disposition: Home, Self-Care Instructions: Needle Stick Injuries (ED) Additional Instructions: You do not have to worry about any disease transmission between the dog and yourself. See home care instructions. Watch for signs of potential infection which would include redness, swelling, warmth , pus draining from the site or fever. We do not expect this to happen. Follow up with your primary care provider as needed. Prescriptions: No Action ibuprofen 600 mg tablet 600 mg PO Q8H PRN (Reason: pain) Qty: 14 0RF acetaminophen 500 mg tablet 500 mg PO Q6H PRN (Reason: fever or pain) Qty: 20 0RF naproxen 500 mg tablet 500 mg PO BID PRN (Reason: pain) Qty: 14 0RF ondansetron 4 mg tablet,disintegrating 4 mg PO Q8H PRN (Reason: nausea and vomiting) Qty: 20 0RF meclizine 25 mg tablet 25 mg PO TID PRN (Reason: dizziness) Qty: 20 0RF meclizine [Dramamine Less Drowsy] 25 mg tablet 25 mg PO TID PRN (Reason: dizziness) Qty: 20 0RF ibuprofen 600 mg tablet 600 mg PO TID PRN (Reason: pain) Qty: 10 0RF metformin 500 mg tablet 500 mg PO BIDWM divalproex 500 mg tablet extended release 24 hr 500 mg PO BID Rx Instructions: with 250 mg; total 750 mg BID divalproex 250 mg tablet extended release 24 hr 250 mg PO BID Rx Instructions: with 500 mg; total 750 mg BID cyclobenzaprine 10 mg tablet 10 mg PO TID PRN (Reason: muscle spasm) Qty: 15 0RF ibuprofen 600 mg tablet 600 mg PO Q8H PRN (Reason: pain) Qty: 20 0RF lidocaine [Lidoderm] 5 % adhesive patch,medicated 1 patch topical DAILY Qty: 15 0RF Rx Instructions: leave on most painful area for up to 12 hrs acetaminophen [Tylenol] 325 mg tablet 325 mg PO QID PRN (Reason: pain) Qty: 28 0RF azithromycin 250 mg tablet See Rx Instructions .ROUTE .COMPLEX Qty: 6 0RF Rx Instructions: For 250 mg dose pack: take 500 mg today (day 1), then 250 mg for 4 days (days 2-5) prednisone 20 mg tablet 40 mg PO DAILY 5 Days Qty: 10 0RF naproxen 500 mg tablet 500 mg PO BID 30 Days Qty: 60 3RF Interventions: ED Discharge Assessment Last Done: 08/30/25 00:17 Discharge Date/Time: 08/30/25 00:18 Print Language: Turkish
[2025-08-30 00:17] VITALS: BP 118/57; PULSE 81; RESP 16; TEMP 36.4; O2SAT 98
== END 2025-08-30 00:18 | disposition home or self-care (01) ==
PROVIDERS: Emergency Provider Emergency Medicine; PCP Internal Medicine
DX: S61.032A Puncture wound without foreign body of left thumb without damage to nail, initial encounter (principal); Z20.9 Contact with and (suspected) exposure to unspecified communicable disease; W26.9XXA Contact with unspecified sharp object(s), initial encounter; Y93.9 Activity, unspecified; Y92.9 Unspecified place or not applicable; Y99.8 Other external cause status
CPT/HCPCS: 99282